=== PATIENT | female | born 1940 | race African-American/Black ===

== ENCOUNTER 2017-06-12 15:43 | Emergency (ER) | payer MEDICARE ==
[2017-06-12] MEDS ORDERED: SODIUM CHLORIDE 0.9% 500 ML IV STA (16:17)
--- NOTE | 2017-06-12 16:22 | ED ---
General Adult HPI - General Chief complaint: Weakness Stated complaint: weakness Time Seen by Provider: 06/12/17 16:08 Source: patient, EMS, RN notes reviewed Mode of arrival: EMS Limitations: physical limitation - History of Present Illness Initial comments: 76-year-old female presents for evaluation of his confusion, slurred speech. Patient was also noted to have several falls over the past 24-48 hours. History is obtained primarily from EMS. Patient is able answer questions but is not a good historian. According EMS patient is fallen 8 times in the last day or 2. She does have bilateral lower extremity weakness. Patient was noted by family members to be confused with slurred speech. The exact onset of time of this symptom is unknown, however according to EMS this has been over the past 2 days as well. Patient is alert and oriented 2, denies headache, denies blurred vision, denies chest pain or shortness of breath, denies abdominal pain. Complains of weakness in both legs. - Related Data Home Medications Medication Instructions Recorded Confirmed Ferrous Sulfate [Feosol] 325 mg PO DAILY 01/24/16 06/12/17 Insulin Glargine [Lantus] 60 units SQ HS 01/24/16 06/12/17 Insulin NPL/Insulin Lispro 5 units SQ BID 01/24/16 06/12/17 [humaLOG MIX 75-25 VIAL] Warfarin [Coumadin] 10 mg PO DAILY 01/24/16 06/12/17 amLODIPine [Norvasc] 10 mg PO DAILY 01/24/16 06/12/17 cloNIDine HCL [Catapres] 0.1 mg PO HS 01/24/16 06/12/17 metFORMIN HCL [Glucophage] 1,000 mg PO BID 01/24/16 06/12/17 Furosemide [Lasix] 20 - 40 mg PO DAILY PRN 03/31/16 06/12/17 Benzonatate [Tessalon Perles] 100 mg PO AC-SUPPER PRN 06/12/17 06/12/17 Previous Rx's Medication Instructions Recorded Aspirin EC [Ecotrin Low Dose] 81 mg PO DAILY #30 tablet. 01/25/16 Allergies Allergy/AdvReac Type Severity Reaction Status Date / Time No Known Allergies Allergy Verified 06/12/17 16:44 Review of Systems ROS Statement: Those systems with pertinent positive or pertinent negative responses have been documented in the HPI. ROS Other: All systems not noted in ROS Statement are negative. Past Medical History Past Medical History: Cancer, COPD, CVA/TIA, Dementia, Diabetes Mellitus, Hyperlipidemia, Hypertension, Memory Impairment, Osteoarthritis (OA) Additional Past Medical History / Comment(s): POOR HISTORIAN, PAST MEDICAL HX WITH PT AND FAMILY. Colon CA, CONSTIPATION AT TIMES, CVA 1995,TIA 2006,GLAUCOMA , LT FOOT FX, PAST FALLS.( PER OLD CHART IS WAS STATED THAT PT HAD STOMACH CANCER REMOVED,GLUACOMA,ARRYTHMIA BUT PT/FAMILY COULD'NT RECALL IT). cva with right deficit History of Any Multi-Drug Resistant Organisms: None Reported Past Surgical History: Bowel Resection, Hysterectomy Additional Past Surgical History / Comment(s): COLONOSCOPY,RT CATARACT REMOVED, Past Anesthesia/Blood Transfusion Reactions: No Reported Reaction Past Psychological History: No Psychological Hx Reported Smoking Status: Former smoker Past Alcohol Use History: None Reported Past Drug Use History: None Reported - Past Family History Mother Family Medical History: Cancer Additional Family Medical History / Comment(s): UNK TYPE Father History Unknown: Yes General Exam Limitations: physical limitation General appearance: alert, in no apparent distress Head exam: Present: atraumatic Eye exam: Present: normal appearance ENT exam: Present: mucous membranes dry Neck exam: Present: normal inspection, full ROM. Absent: tenderness Respiratory exam: Present: normal lung sounds bilaterally. Absent: respiratory distress Cardiovascular Exam: Present: tachycardia, irregular rhythm GI/Abdominal exam: Present: soft. Absent: distended, tenderness Extremities exam: Present: normal inspection, normal capillary refill. Absent: pedal edema Neurological exam: Present: alert, other (Upper extremities are symmetric, strength 5 out of 5, bilateral lower extremities are weak, patient is unable to lift these off the bed.) Psychiatric exam: Present: normal affect, normal mood Skin exam: Present: warm, dry. Absent: cyanosis, diaphoretic Course Vital Signs 06/12/17 06/12/17 06/12/17 15:50 16:05 16:20 Temperature 98.7 F 98.6 F 98.7 F Pulse Rate 114 H 108 H 102 H Respiratory 20 20 18 Rate Blood Pressure 200/108 194/92 178/88 O2 Sat by Pulse 94 L 94 L 94 L Oximetry 06/12/17 06/12/17 06/12/17 16:35 16:50 17:37 Temperature 98.2 F 99.3 F 100.5 F H Pulse Rate 98 98 96 Respiratory 18 18 18 Rate Blood Pressure 218/104 156/104 173/105 O2 Sat by Pulse 98 96 96 Oximetry 06/12/17 17:42 Temperature Pulse Rate 92 Respiratory 16 Rate Blood Pressure 155/89 O2 Sat by Pulse 95 Oximetry - Reevaluation(s) Reevaluation #1: 06/12/17 16:53 Patient initially hypoxic, although she does wear 3 L home O2 EKG Findings - EKG Comments: EKG Findings:: EKG shows sinus tachycardia with PACs, ventricular rate of 102, [place] interval 192, QRS duration 94, QTC 456, no ST segment elevation. Repeat EKG shows a 2 fibrillation, ventricular 84, QRS duration 84, QTC 451, no ST segment elevation or depression, there does appear to. Atrial activity with U waves, this may represent sinus rhythm with PACs Medical Decision Making - Medical Decision Making 76-year-old female presenting with multiple falls, urinary frequency and urgency with incontinence and confusion. Laboratory studies include a CBC, CMP car to enzymes are remarkable for mild elevation in serum troponin at 0.07. EKG is nonischemic. Patient is given an aspirin. She does deny chest pain. This level should be trended. Head CT is obtained shows enlarged ventricles consistent with normal pressure hydrocephalus. No acute cranial hemorrhage. This does support the patient's chief complaint include features. Discussed this with neurology and patient will be best served by transfer to facility with neurosurgery. Patient does have signs UTI, urine culture is pending, patient is given 1 dose of IV antibiotics in the emergency department Patient is initially hypertensive, blood pressure improves with labetalol. Patient and her family are agreeable to transfer. Diagnosis: Normal pressure hydrocephalus, elevated troponin, UTI - Lab Data Result diagrams: 06/12/17 16:00 06/12/17 16:00 Lab Results 06/12/17 06/12/17 06/12/17 Range/Units 16:00 16:00 16:00 WBC 8.6 (3.8-10.6) k/uL RBC 4.84 (3.80-5.40) m/uL Hgb 14.8 (11.4-16.0) gm/dL Hct 46.2 H (34.0-46.0) % MCV 95.5 (80.0-100.0) fL MCH 30.6 (25.0-35.0) pg MCHC 32.0 (31.0-37.0) g/dL RDW 13.7 (11.5-15.5) % Plt Count 191 (150-450) k/uL Neutrophils % 81 % Lymphocytes % 11 % Monocytes % 6 % Eosinophils % 1 % Basophils % 0 % Neutrophils # 7.0 (1.3-7.7) k/uL Lymphocytes # 1.0 (1.0-4.8) k/uL Monocytes # 0.5 (0-1.0) k/uL Eosinophils # 0.1 (0-0.7) k/uL Basophils # 0.0 (0-0.2) k/uL PT (9.0-12.0) sec INR (<1.2) APTT (22.0-30.0) sec VBG pH (7.31-7.41) VBG pCO2 (37-51) mmHg VBG HCO3 (24-28) mmol/L Sodium 141 (137-145) mmol/L Potassium 4.0 (3.5-5.1) mmol/L Chloride 107 (98-107) mmol/L Carbon Dioxide 23 (22-30) mmol/L Anion Gap 11 mmol/L BUN 15 (7-17) mg/dL Creatinine 0.85 (0.52-1.04) mg/dL Est GFR (MDRD) Af Amer >60 (>60 ml/min/1.73 sqM) Est GFR (MDRD) Non-Af >60 (>60 ml/min/1.73 sqM) Glucose 135 H (74-99) mg/dL Plasma Lactic Acid [place] (0.7-2.0) mmol/L Calcium 9.4 (8.4-10.2) mg/dL Magnesium 1.6 (1.6-2.3) mg/dL Total Bilirubin 1.1 (0.2-1.3) mg/dL AST 24 (14-36) U/L ALT 25 (9-52) U/L Alkaline Phosphatase 67 (38-126) U/L Total Creatine Kinase 132 (30-135) U/L CK-MB (CK-2) 1.5 (0.0-2.4) ng/mL CK-MB (CK-2) Rel Index 1.1 Troponin I 0.070 H* (0.000-0.034) ng/mL NT-Pro-B Natriuret Pep pg/mL Total Protein 6.8 (6.3-8.2) g/dL Albumin 3.7 (3.5-5.0) g/dL TSH 1.070 (0.465-4.680) mIU/L Urine Color Urine Appearance (Clear) Urine pH (5.0-8.0) Ur Specific [place] (1.001-1.035) Urine Protein (Negative) Urine Glucose (UA) (Negative) Urine Ketones (Negative) Urine Blood (Negative) Urine Nitrite (Negative) Urine Bilirubin (Negative) Urine Urobilinogen (<2.0) mg/dL Ur Leukocyte Esterase (Negative) Urine RBC (0-5) /hpf Urine WBC (0-5) /hpf Ur Squamous Epith Cells (0-4) /hpf Urine Bacteria (None) /hpf 06/12/17 06/12/17 06/12/17 Range/Units 16:00 16:00 17:10 WBC (3.8-10.6) k/uL RBC (3.80-5.40) m/uL Hgb (11.4-16.0) gm/dL Hct (34.0-46.0) % MCV (80.0-100.0) fL MCH (25.0-35.0) pg MCHC (31.0-37.0) g/dL RDW (11.5-15.5) % Plt Count (150-450) k/uL Neutrophils % % Lymphocytes % % Monocytes % % Eosinophils % % Basophils % % Neutrophils # (1.3-7.7) k/uL Lymphocytes # (1.0-4.8) k/uL Monocytes # (0-1.0) k/uL Eosinophils # (0-0.7) k/uL Basophils # (0-0.2) k/uL PT 10.9 (9.0-12.0) sec INR 1.1 (<1.2) APTT 22.1 (22.0-30.0) sec VBG pH (7.31-7.41) VBG pCO2 (37-51) mmHg VBG HCO3 (24-28) mmol/L Sodium (137-145) mmol/L Potassium (3.5-5.1) mmol/L Chloride (98-107) mmol/L Carbon Dioxide (22-30) mmol/L Anion Gap mmol/L BUN (7-17) mg/dL Creatinine (0.52-1.04) mg/dL Est GFR (MDRD) Af Amer (>60 ml/min/1.73 sqM) Est GFR (MDRD) Non-Af (>60 ml/min/1.73 sqM) Glucose (74-99) mg/dL Plasma Lactic Acid [place] (0.7-2.0) mmol/L Calcium (8.4-10.2) mg/dL Magnesium (1.6-2.3) mg/dL Total Bilirubin (0.2-1.3) mg/dL AST (14-36) U/L ALT (9-52) U/L Alkaline Phosphatase (38-126) U/L Total Creatine Kinase (30-135) U/L CK-MB (CK-2) (0.0-2.4) ng/mL CK-MB (CK-2) Rel Index Troponin I (0.000-0.034) ng/mL NT-Pro-B Natriuret Pep 138 pg/mL Total Protein (6.3-8.2) g/dL Albumin (3.5-5.0) g/dL TSH (0.465-4.680) mIU/L Urine Color Yellow Urine Appearance Cloudy H (Clear) Urine pH 5.5 (5.0-8.0) Ur Specific [place] 1.011 (1.001-1.035) Urine Protein Trace H (Negative) Urine Glucose (UA) Negative (Negative) Urine Ketones 1+ H (Negative) Urine Blood Trace H (Negative) Urine Nitrite Negative (Negative) Urine Bilirubin Negative (Negative) Urine Urobilinogen <2.0 (<2.0) mg/dL Ur Leukocyte Esterase Large H (Negative) Urine RBC 1 (0-5) /hpf Urine WBC 43 H (0-5) /hpf Ur Squamous Epith Cells 1 (0-4) /hpf Urine Bacteria Moderate H (None) /hpf 06/12/17 06/12/17 Range/Units 17:15 17:15 WBC (3.8-10.6) k/uL RBC (3.80-5.40) m/uL Hgb (11.4-16.0) gm/dL Hct (34.0-46.0) % MCV (80.0-100.0) fL MCH (25.0-35.0) pg MCHC (31.0-37.0) g/dL RDW (11.5-15.5) % Plt Count (150-450) k/uL Neutrophils % % Lymphocytes % % Monocytes % % Eosinophils % % Basophils % % Neutrophils # (1.3-7.7) k/uL Lymphocytes # (1.0-4.8) k/uL Monocytes # (0-1.0) k/uL Eosinophils # (0-0.7) k/uL Basophils # (0-0.2) k/uL PT (9.0-12.0) sec INR (<1.2) APTT (22.0-30.0) sec VBG pH 7.42 H (7.31-7.41) VBG pCO2 40 (37-51) mmHg VBG HCO3 26 (24-28) mmol/L Sodium (137-145) mmol/L Potassium (3.5-5.1) mmol/L Chloride (98-107) mmol/L Carbon Dioxide (22-30) mmol/L Anion Gap mmol/L BUN (7-17) mg/dL Creatinine (0.52-1.04) mg/dL Est GFR (MDRD) Af Amer (>60 ml/min/1.73 sqM) Est GFR (MDRD) Non-Af (>60 ml/min/1.73 sqM) Glucose (74-99) mg/dL Plasma Lactic Acid [place] 1.3 (0.7-2.0) mmol/L Calcium (8.4-10.2) mg/dL Magnesium (1.6-2.3) mg/dL Total Bilirubin (0.2-1.3) mg/dL AST (14-36) U/L ALT (9-52) U/L Alkaline Phosphatase (38-126) U/L Total Creatine Kinase (30-135) U/L CK-MB (CK-2) (0.0-2.4) ng/mL CK-MB (CK-2) Rel Index Troponin I (0.000-0.034) ng/mL NT-Pro-B Natriuret Pep pg/mL Total Protein (6.3-8.2) g/dL Albumin (3.5-5.0) g/dL TSH (0.465-4.680) mIU/L Urine Color Urine Appearance (Clear) Urine pH (5.0-8.0) Ur Specific [place] (1.001-1.035) Urine Protein (Negative) Urine Glucose (UA) (Negative) Urine Ketones (Negative) Urine Blood (Negative) Urine Nitrite (Negative) Urine Bilirubin (Negative) Urine Urobilinogen (<2.0) mg/dL Ur Leukocyte Esterase (Negative) Urine RBC (0-5) /hpf Urine WBC (0-5) /hpf Ur Squamous Epith Cells (0-4) /hpf Urine Bacteria (None) /hpf Disposition Clinical Impression: Normal pressure hydrocephalus, Troponin level elevated, UTI (urinary tract infection) Disposition: OTHER INSTITUTION NOT DEFINED Condition: Stable Referrals: Anh Ca MD [Primary Care Provider] - 1-2 days - Out of Hospital Transfer - Req. Specs Out of Hospital Transfer - Requested Specifics: Other Non-Acute ([facility] , excepting physician Dr. Reilly)
[2017-06-12 16:35] LABS: Basophils % (A) 0 %; CH 30.5; CHCM 32.1; Eosinophils # (A) 0.1 k/uL (0-0.7); Eosinophils % (A) 1 %; HCT 46.2 % (34.0-46.0); HDW 2.26; HGB 14.8 gm/dL (11.4-16.0); Luc # (Auto) 0.07; Luc % (Auto) 1; Lymphocytes % (A) 11 %; MCH 30.6 pg (25.0-35.0); MCV 95.5 fL (80.0-100.0); Mean Platelet Volume 8.5; Monocytes # (A) 0.5 k/uL (0-1.0); Monocytes % (A) 6 %; Neutrophils % (A) 81 %; RBC 4.84 m/uL (3.80-5.40); RDW 13.7 % (11.5-15.5); WBC 8.6 k/uL (3.8-10.6); WBC (Perox) 8.62
[2017-06-12 16:42] LABS: ALT 25 U/L (9-52); AST 24 U/L (14-36); Alkaline Phosphatase 67 U/L (38-126); Anion Gap 11 mmol/L; Blood Urea Nitrogen 15 mg/dL (7-17); Calcium 9.4 mg/dL (8.4-10.2); Carbon Dioxide 23 mmol/L (22-30); Chloride 107 mmol/L (98-107); Glucose 135 mg/dL (74-99); Magnesium 1.6 mg/dL (1.6-2.3); Non-African American GFR(MDRD) >60 (>60 ml/min/1.73 sqM); Sodium 141 mmol/L (137-145); Total Bilirubin 1.1 mg/dL (0.2-1.3); Total Protein 6.8 g/dL (6.3-8.2)
[2017-06-12] MEDS ORDERED: LABETALOL 5 MG/ML VIAL MDV IVP STA (16:53)
--- NOTE | 2017-06-12 17:02 | XR ---
EXAMINATION TYPE: XR chest 2V DATE OF EXAM: 06/12/2017 COMPARISON: 01/24/2016 TECHNIQUE: PA and lateral views submitted. HISTORY: Weakness FINDINGS: There is nodular prominence the right hilum. Atherosclerotic change aorta. No evidence of interstitia l edema or pneumothorax. Degenerative change of the spine. Ectasia of the aorta. Arthropathy of the s houlders. IMPRESSION: 1. Ectasia of the aorta with marked prominence the right hilum. CT of the chest is recommended to ass ess for mass, adenopathy or possibly aneurysm.
[2017-06-12 17:07] LABS: Creatine Kinase MB 1.5 ng/mL (0.0-2.4)
[2017-06-12 17:08] LABS: INR 1.1 (<1.2); Partial Thromboplastin Time 22.1 sec (22.0-30.0); Prothrombin Time 10.9 sec (9.0-12.0)
[2017-06-12 17:14] LABS: Troponin I 0.07 ng/mL (0.000-0.034)
[2017-06-12 17:31] LABS: VBG PH 7.42 (7.31-7.41)
--- NOTE | 2017-06-12 17:38 | CT ---
EXAMINATION TYPE: CT brain wo con DATE OF EXAM: 06/12/2017 COMPARISON: NONE HISTORY: Weakness. CT DLP: 960.3 mGycm. Automated exposure control for dose reduction was used. FINDINGS: There is no acute intracranial hemorrhage, mass, definite new attenuation defect, or mass e ffect. The ventricles are relatively more prominent than the sulci and this can correlate with a clin ical diagnosis of normal pressure hydrocephalus. There is no skull fracture. The globes are intact and the visualized paranasal sinuses, mastoid sinus air cells, and middle ear cavities are clear. IMPRESSION: 1. NO ACUTE PROCESS. 2. Finding which could potentially correlate with a clinical diagnosis of normal pressure hydrocephal us.
[2017-06-12] MEDS ORDERED: ASPIRIN 325 MG TAB PO STA (17:45)
[2017-06-12 18:12] LABS: Appearance,Urine Cloudy (Clear); Bacteria,Urine Moderate /hpf; Bilirubin,Urine Negative (Negative); Glucose,Urine (UA) Negative (Negative); Ketones,Urine 1+ (Negative); Leukocyte Esterase,Urine Large (Negative); Nitrite,Urine Negative (Negative); PH, Urine 5.5 (5.0-8.0); Particle Count 69179; Protein,Urine Trace (Negative); RBC,Urine 1 /hpf (0-5); Specific Gravity,Urine 1.011 (1.001-1.035); Squamous Epithelial Cell,Urine 1 /hpf (0-4); UA Billing (MACRO vs. MICRO) MICRO; Urobilinogen,Urine <2.0 mg/dL (<2.0); WBC,Urine 43 /hpf (0-5)
[2017-06-12 18:34] VITALS: RESP 18
[2017-06-12 19:24] VITALS: BP 181/100; PULSE 82; TEMP 99.8
== END 2017-06-12 19:28 | disposition other institution (70) ==
LOC: EC 15:43
DX: G91.9 Hydrocephalus, unspecified (principal); N39.0 Urinary tract infection, site not specified; R79.89 Other specified abnormal findings of blood chemistry; R53.1 Weakness; R41.0 Disorientation, unspecified; R47.81 Slurred speech; J44.9 Chronic obstructive pulmonary disease, unspecified; E11.9 Type 2 diabetes mellitus without complications; E78.5 Hyperlipidemia, unspecified; I10 Essential (primary) hypertension; M19.90 Unspecified osteoarthritis, unspecified site; Z85.028 Personal history of other malignant neoplasm of stomach; Z86.73 Personal history of transient ischemic attack (TIA), and cerebral infarction without residual deficits; Z87.891 Personal history of nicotine dependence; Z79.4 Long term (current) use of insulin; Z79.01 Long term (current) use of anticoagulants; Z79.899 Other long term (current) drug therapy
CPT/HCPCS: 36415; 93005; 83880; 80053; 82550; 82553; 82803; 83605; 83735; 84443; 84484; 85025; 85610; 85730; 81001; 87040; 87086; 71020; 70450; 99285; 96365; 96375; 96361; J0696; 87077; 87186

== ENCOUNTER 2017-07-22 10:52 | Inpatient (IN) | payer MEDICARE ==
[2017-07-22] MEDS ORDERED: SODIUM CHLORIDE 0.9% 500 ML IV ONE (10:55)
[2017-07-22 11:04] LABS: Glucose,Whole Blood 140 mg/dL (75-99)
--- NOTE | 2017-07-22 11:06 | ED ---
General Adult HPI - General Stated complaint: CVA Time Seen by Provider: 07/22/17 10:55 Source: RN notes reviewed - History of Present Illness Initial comments: This is a 76-year-old female presents emergency Department with a past medical history significant for strokes and diabetes. EMS reported that the patient was normal at about 8:00 today and states that she was altered mentally currently. All of her residual effects the right-sided facial droop slurred speech and right-sided weakness all little bit worse but the states to EMS that her left side is also weaker than normal. Patient currently has no complaints she is alert and oriented 2 which is abnormal according to the paramedics she is normally alert and oriented 3. There has been no history of any recent injury or trauma there is no history of any fever chills cough or difficulty breathing patient denies any chest pain or palpitations. Patient denies abdominal pain patient denies any recent nausea vomiting or diarrhea. - Related Data Home Medications Medication Instructions Recorded Confirmed Ferrous Sulfate [Feosol] 325 mg PO DAILY 01/24/16 07/22/17 Insulin Glargine [Lantus] 60 units SQ HS 01/24/16 07/22/17 Insulin NPL/Insulin Lispro 5 units SQ BID 01/24/16 07/22/17 [humaLOG MIX 75-25 VIAL] Warfarin [Coumadin] 10 mg PO Q48H 01/24/16 07/22/17 amLODIPine [Norvasc] 10 mg PO DAILY 01/24/16 07/22/17 cloNIDine HCL [Catapres] 0.1 mg PO HS 01/24/16 07/22/17 metFORMIN HCL [Glucophage] 1,000 mg PO BID 01/24/16 07/22/17 Furosemide [Lasix] 20 - 40 mg PO DAILY PRN 03/31/16 07/22/17 Benzonatate [Tessalon Perles] 100 mg PO AC-SUPPER PRN 06/12/17 07/22/17 Cholecalciferol [Vitamin D3] 2,000 unit PO DAILY 07/22/17 07/22/17 Docusate [Colace] 100 mg PO DAILY 07/22/17 07/22/17 Folic Acid 1 mg PO DAILY 07/22/17 07/22/17 Hydrochlorothiazide [Hydrodiuril] 25 mg PO DAILY 07/22/17 07/22/17 Lisinopril [Zestril] 10 mg PO DAILY 07/22/17 07/22/17 Metoprolol Tartrate [Lopressor] 100 mg PO BID 07/22/17 07/22/17 Potassium Chloride [K-Tab ER] 10 meq PO DAILY 07/22/17 07/22/17 Pravastatin Sodium [Pravachol] 10 mg PO DAILY 07/22/17 07/22/17 amLODIPine [Norvasc] 10 mg PO DAILY 07/22/17 07/22/17 Previous Rx's Medication Instructions Recorded Aspirin EC [Ecotrin Low Dose] 81 mg PO DAILY #30 tablet. 01/25/16 Allergies Allergy/AdvReac Type Severity Reaction Status Date / Time No Known Allergies Allergy Verified 07/22/17 11:29 Review of Systems ROS Statement: Those systems with pertinent positive or pertinent negative responses have been documented in the HPI. ROS Other: All systems not noted in ROS Statement are negative. Past Medical History Past Medical History: Cancer, COPD, CVA/TIA, Dementia, Diabetes Mellitus, Hyperlipidemia, Hypertension, Memory Impairment, Osteoarthritis (OA) Additional Past Medical History / Comment(s): POOR HISTORIAN, PAST MEDICAL HX WITH PT AND FAMILY. Colon CA, CONSTIPATION AT TIMES, CVA 1995,TIA 2006,GLAUCOMA , LT FOOT FX, PAST FALLS.( PER OLD CHART IS WAS STATED THAT PT HAD STOMACH CANCER REMOVED,GLUACOMA,ARRYTHMIA BUT PT/FAMILY COULD'NT RECALL IT). cva with right deficit History of Any Multi-Drug Resistant Organisms: None Reported Past Surgical History: Bowel Resection, Hysterectomy Additional Past Surgical History / Comment(s): COLONOSCOPY,RT CATARACT REMOVED, Past Anesthesia/Blood Transfusion Reactions: No Reported Reaction Past Psychological History: No Psychological Hx Reported Smoking Status: Former smoker Past Alcohol Use History: None Reported Past Drug Use History: None Reported - Past Family History Mother Family Medical History: Cancer Additional Family Medical History / Comment(s): UNK TYPE Father History Unknown: Yes General Exam - General Exam Comments Initial Comments: GENERAL: Patient is well-developed and well-nourished. Patient is nontoxic and well- hydrated and is in mild distress. ENT: Neck is soft and supple. No significant lymphadenopathy is noted. Oropharynx is clear. Moist mucous membranes. Neck has full range of motion without eliciting any pain. EYES: The sclera were anicteric and conjunctiva were pink and moist. Extraocular movements were intact and pupils were equal round and reactive to light. Eyelids were unremarkable. PULMONARY: Unlabored respirations. Good breath sounds bilaterally. No audible rales rhonchi or wheezing was noted. CARDIOVASCULAR: There is a regular rate and rhythm without any murmurs gallops or rubs. ABDOMEN: Soft and nontender with normal bowel sounds. No palpable organomegaly was noted. There is no palpable pulsatile mass. SKIN: Skin is clear with no lesions or rashes and otherwise unremarkable. NEUROLOGIC: Patient is alert and oriented x3. Cranial nerves II through XII are grossly intact. Motor and sensory are also intact. Normal speech, volume and content. Symmetrical smile. MUSCULOSKELETAL: Normal extremities with adequate strength and full range of motion. No lower extremity swelling or edema. No calf tenderness. LYMPHATICS: No significant lymphadenopathy is noted PSYCHIATRIC: Normal psychiatric evaluation. Normal interpersonal interactions appears functionally intact in deals appropriately with others. Course Vital Signs 07/22/17 07/22/17 07/22/17 10:52 11:00 11:15 Temperature 98.5 F Pulse Rate 63 75 79 Respiratory 18 18 20 Rate Blood Pressure 172/79 184/77 160/70 O2 Sat by Pulse 96 98 98 Oximetry 07/22/17 07/22/17 07/22/17 11:30 11:45 12:00 Temperature Pulse Rate 73 76 66 Respiratory 18 18 18 Rate Blood Pressure 166/72 162/72 154/74 O2 Sat by Pulse 99 97 96 Oximetry Medical Decision Making - Medical Decision Making EKG shows normal sinus rhythm at 69 bpm RI interval is 164 QRS is 90 QT interval 436 QTC is 467. Patient's EKG shows no significant ST segment elevation or depression. Family came to the room later and stated the patient started showing symptoms of altered mental status and increased generalized weakness last evening. - Lab Data Result diagrams: 07/22/17 10:55 07/22/17 10:55 Lab Results 07/22/17 07/22/17 07/22/17 Range/Units 10:55 10:55 10:55 WBC 5.5 (3.8-10.6) k/uL RBC 4.63 (3.80-5.40) m/uL Hgb 14.3 (11.4-16.0) gm/dL Hct 44.4 (34.0-46.0) % MCV 95.8 (80.0-100.0) fL MCH 30.9 (25.0-35.0) pg MCHC 32.2 (31.0-37.0) g/dL RDW 12.8 (11.5-15.5) % Plt Count 215 (150-450) k/uL Neutrophils % 64 % Lymphocytes % 24 % Monocytes % 5 % Eosinophils % 4 % Basophils % 1 % Neutrophils # 3.5 (1.3-7.7) k/uL Lymphocytes # 1.3 (1.0-4.8) k/uL Monocytes # 0.3 (0-1.0) k/uL Eosinophils # 0.2 (0-0.7) k/uL Basophils # 0.0 (0-0.2) k/uL PT (9.0-12.0) sec INR (<1.2) APTT (22.0-30.0) sec Sodium 143 (137-145) mmol/L Potassium 3.7 (3.5-5.1) mmol/L Chloride 103 (98-107) mmol/L Carbon Dioxide 30 (22-30) mmol/L Anion Gap 10 mmol/L BUN 9 (7-17) mg/dL Creatinine 0.79 (0.52-1.04) mg/dL Est GFR (MDRD) Af Amer >60 (>60 ml/min/1.73 sqM) Est GFR (MDRD) Non-Af >60 (>60 ml/min/1.73 sqM) Glucose 129 H (74-99) mg/dL POC Glucose (mg/dL) (75-99) mg/dL POC Glu Exercise Equipment Specialist ID Calcium 10.2 (8.4-10.2) mg/dL Total Bilirubin 0.4 (0.2-1.3) mg/dL AST 13 L (14-36) U/L ALT 18 (9-52) U/L Alkaline Phosphatase 83 (38-126) U/L Total Creatine Kinase 53 (30-135) U/L CK-MB (CK-2) 0.7 (0.0-2.4) ng/mL CK-MB (CK-2) Rel Index 1.3 Troponin I 0.049 H* (0.000-0.034) ng/mL Total Protein 6.9 (6.3-8.2) g/dL Albumin 4.0 (3.5-5.0) g/dL Urine Color Urine Appearance (Clear) Urine pH (5.0-8.0) Ur Specific [place] (1.001-1.035) Urine Protein (Negative) Urine Glucose (UA) (Negative) Urine Ketones (Negative) Urine Blood (Negative) Urine Nitrite (Negative) Urine Bilirubin (Negative) Urine Urobilinogen (<2.0) mg/dL Ur Leukocyte Esterase (Negative) Urine Opiates Screen (NotDetected) Ur Oxycodone Screen (NotDetected) Urine Methadone Screen (NotDetected) Ur Propoxyphene Screen (NotDetected) Ur Barbiturates Screen (NotDetected) U Tricyclic Antidepress (NotDetected) Ur Phencyclidine Scrn (NotDetected) Ur Amphetamines Screen (NotDetected) U Methamphetamines Scrn (NotDetected) U Benzodiazepines Scrn (NotDetected) Urine Cocaine Screen (NotDetected) U Marijuana (THC) Screen (NotDetected) 07/22/17 07/22/17 07/22/17 Range/Units 10:55 10:56 11:25 WBC (3.8-10.6) k/uL RBC (3.80-5.40) m/uL Hgb (11.4-16.0) gm/dL Hct (34.0-46.0) % MCV (80.0-100.0) fL MCH (25.0-35.0) pg MCHC (31.0-37.0) g/dL RDW (11.5-15.5) % Plt Count (150-450) k/uL Neutrophils % % Lymphocytes % % Monocytes % % Eosinophils % % Basophils % % Neutrophils # (1.3-7.7) k/uL Lymphocytes # (1.0-4.8) k/uL Monocytes # (0-1.0) k/uL Eosinophils # (0-0.7) k/uL Basophils # (0-0.2) k/uL PT 10.5 (9.0-12.0) sec INR 1.0 (<1.2) APTT 22.9 (22.0-30.0) sec Sodium (137-145) mmol/L Potassium (3.5-5.1) mmol/L Chloride (98-107) mmol/L Carbon Dioxide (22-30) mmol/L Anion Gap mmol/L BUN (7-17) mg/dL Creatinine (0.52-1.04) mg/dL Est GFR (MDRD) Af Amer (>60 ml/min/1.73 sqM) Est GFR (MDRD) Non-Af (>60 ml/min/1.73 sqM) Glucose (74-99) mg/dL POC Glucose (mg/dL) 140 H (75-99) mg/dL POC Glu Exercise Equipment Specialist ID Jillian Rios Calcium (8.4-10.2) mg/dL Total Bilirubin (0.2-1.3) mg/dL AST (14-36) U/L ALT (9-52) U/L Alkaline Phosphatase (38-126) U/L Total Creatine Kinase (30-135) U/L CK-MB (CK-2) (0.0-2.4) ng/mL CK-MB (CK-2) Rel Index Troponin I (0.000-0.034) ng/mL Total Protein (6.3-8.2) g/dL Albumin (3.5-5.0) g/dL Urine Color Light Yellow Urine Appearance Clear (Clear) Urine pH 5.0 (5.0-8.0) Ur Specific [place] 1.007 (1.001-1.035) Urine Protein Negative (Negative) Urine Glucose (UA) Negative (Negative) Urine Ketones Negative (Negative) Urine Blood Negative (Negative) Urine Nitrite Negative (Negative) Urine Bilirubin Negative (Negative) Urine Urobilinogen <2.0 (<2.0) mg/dL Ur Leukocyte Esterase Negative (Negative) Urine Opiates Screen Not Detected (NotDetected) Ur Oxycodone Screen Not Detected (NotDetected) Urine Methadone Screen Not Detected (NotDetected) Ur Propoxyphene Screen Not Detected (NotDetected) Ur Barbiturates Screen Not Detected (NotDetected) U Tricyclic Antidepress Not Detected (NotDetected) Ur Phencyclidine Scrn Not Detected (NotDetected) Ur Amphetamines Screen Not Detected (NotDetected) U Methamphetamines Scrn Not Detected (NotDetected) U Benzodiazepines Scrn Not Detected (NotDetected) Urine Cocaine Screen Not Detected (NotDetected) U Marijuana (THC) Screen Not Detected (NotDetected) Disposition Clinical Impression: Altered mental status Disposition: ADMITTED IP TO THIS HOSP Referrals: Anh Ca MD [Primary Care Provider] - 1-2 days Time of Disposition: 12:40
[2017-07-22 11:26] LABS: Basophils % (A) 1 %; CH 30.7; CHCM 32.2; Eosinophils # (A) 0.2 k/uL (0-0.7); Eosinophils % (A) 4 %; HCT 44.4 % (34.0-46.0); HGB 14.3 gm/dL (11.4-16.0); Luc # (Auto) 0.15; Luc % (Auto) 3; Lymphocytes # (A) 1.3 k/uL (1.0-4.8); Lymphocytes % (A) 24 %; MCH 30.9 pg (25.0-35.0); MCHC 32.2 g/dL (31.0-37.0); MCV 95.8 fL (80.0-100.0); Mean Platelet Volume 7.9; Monocytes # (A) 0.3 k/uL (0-1.0); Monocytes % (A) 5 %; Neutrophils # (A) 3.5 k/uL (1.3-7.7); Neutrophils % (A) 64 %; RBC 4.63 m/uL (3.80-5.40); RDW 12.8 % (11.5-15.5); WBC 5.5 k/uL (3.8-10.6); WBC (Perox) 5.16
--- NOTE | 2017-07-22 11:26 | CT ---
EXAMINATION TYPE: CT brain wo con DATE OF EXAM: 07/22/2017 HISTORY: Altered mental status CT DLP: 945.5 mGycm. Automated Exposure Control for Dose Reduction was Utilized. TECHNIQUE: CT scan of the head is performed without contrast. COMPARISON: CT brain June 12, 2017 and older studies. FINDINGS: There is no acute intracranial hemorrhage or midline shift identified. There is diffuse v entricular and sulcal prominence consistent with diffuse age-related cerebral atrophy. Ventricular si ze is stable. There is low-attenuation in the periventricular white matter consistent with chronic sm all vessel ischemic change. The globes are intact and the visualized sinuses are clear. IMPRESSION: No acute intracranial hemorrhage or midline shift. There is moderate to severe diffuse age-related cerebral atrophy and chronic small vessel ischemic change redemonstrated without signific ant change from prior.
[2017-07-22 11:34] LABS: Partial Thromboplastin Time 22.9 sec (22.0-30.0); Prothrombin Time 10.5 sec (9.0-12.0)
[2017-07-22 11:36] LABS: ALT 18 U/L (9-52); AST 13 U/L (14-36); Alkaline Phosphatase 83 U/L (38-126); Anion Gap 10 mmol/L; Blood Urea Nitrogen 9 mg/dL (7-17); Calcium 10.2 mg/dL (8.4-10.2); Carbon Dioxide 30 mmol/L (22-30); Chloride 103 mmol/L (98-107); Glucose 129 mg/dL (74-99); Non-African American GFR(MDRD) >60 (>60 ml/min/1.73 sqM); Potassium 3.7 mmol/L (3.5-5.1); Sodium 143 mmol/L (137-145); Total Bilirubin 0.4 mg/dL (0.2-1.3); Total Protein 6.9 g/dL (6.3-8.2)
[2017-07-22 11:55] LABS: Appearance,Urine Clear (Clear); Bilirubin,Urine Negative (Negative); Glucose,Urine (UA) Negative (Negative); Ketones,Urine Negative (Negative); Leukocyte Esterase,Urine Negative (Negative); Nitrite,Urine Negative (Negative); Protein,Urine Negative (Negative); Specific Gravity,Urine 1.007 (1.001-1.035); UA Billing (MACRO vs. MICRO) CHEM; Urobilinogen,Urine <2.0 mg/dL (<2.0)
[2017-07-22 12:03] LABS: Creatine Kinase MB 0.7 ng/mL (0.0-2.4)
[2017-07-22 12:13] LABS: Troponin I 0.049 ng/mL (0.000-0.034)
[2017-07-22] MEDS ORDERED: SODIUM CHLORIDE 0.9% 1,000 ML IV ONE (12:40)
--- NOTE | 2017-07-22 12:40 | XR ---
EXAMINATION TYPE: XR chest 2V DATE OF EXAM: 07/22/2017 COMPARISON: 06/12/2017 TECHNIQUE: PA and lateral views submitted. HISTORY: Altered mental status FINDINGS: The lungs are clear and there is no pneumothorax, pleural effusion, or focal pneumonia. IMPRESSION: 1. No acute process. There is nodular prominence the right hilum. Atherosclerotic change aorta. No evidence of interstitia l edema or pneumothorax. Degenerative change of the spine. Ectasia of the aorta. Arthropathy of the s houlders. Chronic rib deformities noted suggest remote trauma. IMPRESSION: 1. Ectasia of the aorta with marked prominence the right hilum. CT of the chest is recommended to ass ess for mass, adenopathy or possibly aneurysm.
[2017-07-22 16:48] LABS: Glucose,Whole Blood 77 mg/dL (75-99)
[2017-07-22] MEDS: INSULIN LISPRO (humaLOG) 300 UNIT/3 ML VIAL SQ SCH ×2 (16:51→21:35)
[2017-07-22] MEDS: ENOXAPARIN 60 MG/0.6 ML SYRINGE SQ SCH (20:35)
[2017-07-22] MEDS: ASPIRIN 300 MG SUPP RECTAL SCH (20:42)
[2017-07-22 20:50] LABS: Glucose,Whole Blood 66 mg/dL (75-99)
[2017-07-22] MEDS ORDERED: DEXTROSE 10 % IN WATER 250 ML IV STA (20:56)
[2017-07-22 21:29] LABS: Glucose,Whole Blood 125 mg/dL (75-99)
--- NOTE | 2017-07-22 22:49 | CONS ---
CONSULTATION Date of consultation 07/22/2017. CHIEF COMPLAINT: Altered mental status and weakness. HISTORY OF PRESENT ILLNESS: The patient is a pleasant 76-year-old -Burmese female who is being evaluated by the neurology service per the request of Dr. Dominguez for the above-mentioned complaints. The patient has history of ischemic stroke with residual right hemiparesis and dysarthria. She was brought into [facility] Room for some confusion that her noticed. He also felt that she was having more weakness than usual. In the emergency room, a CT scan of the brain was done which showed generalized atrophy and small-vessel ischemic changes. In reviewing her home medications, she is on Coumadin at home, but her INR was normal. The patient did fail a swallow study at bedside and she is not receiving her Coumadin during this admission. She has been started on Lovenox by Dr. Dominguez. Her CBC, comprehensive metabolic profile, urine drug screen and urinalysis were normal. Her cardiac enzymes showed slightly elevated troponin I at 0.049. The patient was admitted for further workup and management and Speech Therapy has been consulted. At the time of my evaluation, the patient is lying in her bed and appears to be in no acute distress. She continues to have obvious right hemiparesis and a right facial droop and her speech continues to be dysarthric. PAST MEDICAL HISTORY: Ischemic stroke with residual right hemiparesis and dysarthria, chronic obstructive pulmonary disease, dementia, dyslipidemia, hypertension, arthritis, history of bowel resection, hysterectomy, cataract surgery. SOCIAL HISTORY: The patient is a former smoker. There is no history of any alcohol or drug use. FAMILY HISTORY: Positive for cancer. HOME MEDICATIONS: Reviewed in the chart. ALLERGIES: No known drug allergies. REVIEW OF SYSTEM: CONSTITUTIONAL: Positive for fatigue. EYES: Positive for chronic diminished vision. ENT: Negative. CARDIOVASCULAR: Negative. RESPIRATORY: Negative. NEUROLOGICAL: As mentioned above. GASTROINTESTINAL: As mentioned above. GENITOURINARY: Negative. ENDOCRINE: Negative. PSYCHIATRIC: Negative. MUSCULOSKELETAL: Positive for occasional joint pain. DERMATOLOGICAL: Negative. PHYSICAL EXAM: Vital signs show a temperature of 98.0, pulse 62, respirations 20, blood pressure 164/81. GENERAL APPEARANCE: The patient is a well-developed, elderly -Burmese female, who appears to be in no acute distress. HEENT: Normocephalic, atraumatic. Right facial weakness is seen. NECK: Supple with no masses felt. CARDIOVASCULAR: Regular rate and rhythm. ABDOMEN: Nontender nondistended. Extremities showed trace edema with no clubbing seen. NEUROLOGICAL: The patient is alert, aware and oriented x3. Speech is dysarthric. Language testing was normal. Strength is 4- out of 5 on the right and 5- out of 5 on the left. Sensory exam was normal to light touch in all 4 extremities. Cranial nerve testing showed right facial weakness. No seizure-like activity is seen. IMPRESSION: 1. Altered mental status, improved. 2. History of ischemic stroke. 3. Right hemiparesis secondary to stroke. 4. Dysarthria secondary to stroke. 5. Dysphagia. 6. History of dementia. RECOMMENDATION: The patient's altered mental status appears to have resolved, as she is oriented x3 at the time of my evaluation. She is having dysphagia, which is new to her. Her right hemiparesis and dysarthria is due to her old stroke. Speech Therapy has been consulted. I will start her on aspirin 300 mg rectally daily. If her dysphagia does not resolve, she will likely need a PEG tube. I will order a fasting lipid panel, carotid Doppler, EEG and serum homocystine level. The patient will need to be restarted on Coumadin, which is her home medication. It is unclear at this time why she is on anticoagulation. The patient denies any history of irregular heartbeats, but she is not a good historian. Continue the rest of your current workup and management. Continue neuro checks. I will continue to follow with you. Further recommendations to follow. Thank you for allowing me to participate in the care of your patient. If you have any questions, please feel free to contact me. MMODL / IJN: [id number] /
[2017-07-23 00:04] LABS: Glucose,Whole Blood 87 mg/dL (75-99)
[2017-07-23 02:04] LABS: Glucose,Whole Blood 85 mg/dL (75-99)
[2017-07-23] MEDS: INSULIN LISPRO (humaLOG) 300 UNIT/3 ML VIAL SQ SCH ×5 (06:08→21:10)
[2017-07-23 06:15] LABS: Glucose,Whole Blood 168 mg/dL (75-99)
[2017-07-23 07:11] LABS: Cholesterol 188 mg/dL (<200); HDL Cholesterol 64 mg/dL (40-60)
--- NOTE | 2017-07-23 08:02 | P.CRDCN ---
History of Present Illness Consult date: 07/23/17 Chief complaint: Change in mental status History of present illness: This is a 76-year-old female patient who was brought by her family to the emergency room because of change in mental status. The patient currently is confused and she is unable to tell me any details. Apparently she had a stroke in the past with a residual right sided weakness and slurred speech. The family noticed that the left sided weakness was getting worse and also her speech was getting worse and also there is some swallow problem. The patient was seen and evaluated by a neurologist yesterday who felt that the patient did not have any acute stroke but she is scheduled to have an EEG and carotid duplex study which is in process to be done. There is no indication of any chest pain or chest discomfort. There is no indication of any prior cardiac history at this point. The patient is receiving Coumadin for unknown reason. The EKG showed sinus rhythm without any ischemic changes. We get involved in the care of the patient because the first set of cardiac enzymes came in to be mildly abnormal and we don't have any more sets. She underwent an echocardiogram in 2014 and that revealed normal LV function. Past Medical History Past Medical History: Cancer, COPD, CVA/TIA, Dementia, Diabetes Mellitus, Hyperlipidemia, Hypertension, Memory Impairment, Osteoarthritis (OA) Additional Past Medical History / Comment(s): POOR HISTORIAN, PAST MEDICAL HX WITH PT AND FAMILY. Colon CA, CONSTIPATION AT TIMES, CVA 1995,TIA 2006,GLAUCOMA , LT FOOT FX, PAST FALLS.( PER OLD CHART IS WAS STATED THAT PT HAD STOMACH CANCER REMOVED,GLUACOMA,ARRYTHMIA BUT PT/FAMILY COULD'NT RECALL IT). cva with right deficit History of Any Multi-Drug Resistant Organisms: None Reported Past Surgical History: Bowel Resection, Hysterectomy Additional Past Surgical History / Comment(s): COLONOSCOPY,RT CATARACT REMOVED, Past Anesthesia/Blood Transfusion Reactions: No Reported Reaction Past Psychological History: No Psychological Hx Reported Smoking Status: Former smoker Past Alcohol Use History: None Reported Additional Past Alcohol Use History / Comment(s): STARTED SMOKING AT AGE 17, SMOKED LESS THAN 1 PPD, QUIT 2001. DENIES ANY ETOH USE SINCE 2001. Past Drug Use History: None Reported - Past Family History Mother Family Medical History: Cancer Additional Family Medical History / Comment(s): UNK TYPE Father History Unknown: Yes Medications and Allergies Home Medications Medication Instructions Recorded Confirmed Type Ferrous Sulfate [Feosol] 325 mg PO DAILY 01/24/16 07/22/17 History Insulin Glargine [Lantus] 60 units SQ HS 01/24/16 07/22/17 History Insulin NPL/Insulin Lispro 5 units SQ BID 01/24/16 07/22/17 History [humaLOG MIX 75-25 VIAL] Warfarin [Coumadin] 10 mg PO Q48H 01/24/16 07/22/17 History amLODIPine [Norvasc] 10 mg PO DAILY 01/24/16 07/22/17 History cloNIDine HCL [Catapres] 0.1 mg PO HS 01/24/16 07/22/17 History metFORMIN HCL [Glucophage] 1,000 mg PO BID 01/24/16 07/22/17 History Aspirin EC [Ecotrin Low Dose] 81 mg PO DAILY #30 tablet. 01/25/16 07/22/17 Rx Furosemide [Lasix] 20 - 40 mg PO DAILY PRN 03/31/16 07/22/17 History Benzonatate [Tessalon Perles] 100 mg PO AC-SUPPER PRN 06/12/17 07/22/17 History Cholecalciferol [Vitamin D3] 2,000 unit PO DAILY 07/22/17 07/22/17 History Docusate [Colace] 100 mg PO DAILY 07/22/17 07/22/17 History Folic Acid 1 mg PO DAILY 07/22/17 07/22/17 History Hydrochlorothiazide [Hydrodiuril] 25 mg PO DAILY 07/22/17 07/22/17 History Lisinopril [Zestril] 10 mg PO DAILY 07/22/17 07/22/17 History Metoprolol Tartrate [Lopressor] 100 mg PO BID 07/22/17 07/22/17 History Potassium Chloride [K-Tab ER] 10 meq PO DAILY 07/22/17 07/22/17 History Pravastatin Sodium [Pravachol] 10 mg PO DAILY 07/22/17 07/22/17 History amLODIPine [Norvasc] 10 mg PO DAILY 07/22/17 07/22/17 History Allergies Allergy/AdvReac Type Severity Reaction Status Date / Time No Known Allergies Allergy Verified 07/22/17 11:29 Physical Exam Vitals: Vital Signs Temp Pulse Pulse Resp BP BP Pulse Ox 07/23/17 04:00 97.1 F L 73 16 141/80 93 L 07/22/17 23:10 97.2 F L 72 16 144/89 96 07/22/17 19:57 96.9 F L 57 L 16 152/74 98 07/22/17 16:00 97.9 F 61 16 154/78 97 07/22/17 13:00 98.0 F 62 20 164/81 98 07/22/17 12:00 66 18 154/74 96 07/22/17 11:45 76 18 162/72 97 07/22/17 11:30 73 18 166/72 99 07/22/17 11:15 79 20 160/70 98 07/22/17 11:00 75 18 184/77 98 07/22/17 10:52 98.5 F 63 18 172/79 96 Intake and Output 07/22/17 07/23/17 07/23/17 22:59 06:59 14:59 Intake Total 750 600 Balance 750 600 Intake: IV 750 600 Dextrose 10 % in Water 150 250 ml @ 999 mls/hr IV ONCE STA Rx#:[id number] Sodium Chloride 0.9% 1, 600 600 000 ml @ 75 mls/hr IV . [id number] ONE Rx#:[id number] Other: Voiding Method Bedpan Bedpan Diaper Incontinent # Voids 2 3 Weight 61.5 kg - Constitutional General appearance: no acute distress - Respiratory Respiratory: bilateral: CTA - Cardiovascular Rhythm: regular Heart sounds: normal: S1, S2 Results 07/22/17 10:55 07/22/17 10:55 Cardiac Enzymes 07/22/17 07/22/17 Range/Units 10:55 10:55 AST 13 L (14-36) U/L CK-MB (CK-2) 0.7 (0.0-2.4) ng/mL Troponin I 0.049 H* (0.000-0.034) ng/mL Coagulation 07/22/17 Range/Units 10:55 PT 10.5 (9.0-12.0) sec APTT 22.9 (22.0-30.0) sec Lipids 07/23/17 Range/Units 05:49 Triglycerides 99 (<150) mg/dL Cholesterol 188 (<200) mg/dL HDL Cholesterol 64 H (40-60) mg/dL CBC 07/22/17 Range/Units 10:55 WBC 5.5 (3.8-10.6) k/uL RBC 4.63 (3.80-5.40) m/uL Hgb 14.3 (11.4-16.0) gm/dL Hct 44.4 (34.0-46.0) % Plt Count 215 (150-450) k/uL Comprehensive Metabolic Panel 07/22/17 Range/Units 10:55 Sodium 143 (137-145) mmol/L Potassium 3.7 (3.5-5.1) mmol/L Chloride 103 (98-107) mmol/L Carbon Dioxide 30 (22-30) mmol/L BUN 9 (7-17) mg/dL Creatinine 0.79 (0.52-1.04) mg/dL Glucose 129 H (74-99) mg/dL Calcium 10.2 (8.4-10.2) mg/dL AST 13 L (14-36) U/L ALT 18 (9-52) U/L Alkaline Phosphatase 83 (38-126) U/L Total Protein 6.9 (6.3-8.2) g/dL Albumin 4.0 (3.5-5.0) g/dL Current Medications Generic Name Dose Route Start Last Admin Trade Name Freq PRN Reason Stop Dose Admin Aspirin 300 mg 07/22/17 20:00 07/22/17 20:42 Aspirin RECTAL 300 mg DAILY CAITLYN Administration Enalaprilat 1.25 mg 07/22/17 14:52 Vasotec IVP Q6HR PRN Blood Pressure - High Enoxaparin Sodium 60 mg 07/22/17 21:00 07/22/17 20:35 Lovenox SQ 60 mg Q12HR CAITLYN Administration Insulin Human Lispro 0 unit 07/22/17 17:30 07/23/17 06:17 Humalog SQ 2 unit ACHS CAITLYN Administration Protocol Intake and Output 07/22/17 07/23/17 07/23/17 22:59 06:59 14:59 Intake Total 750 600 Balance 750 600 Intake: IV 750 600 Dextrose 10 % in Water 150 250 ml @ 999 mls/hr IV ONCE STA Rx#:[id number] Sodium Chloride 0.9% 1, 600 600 000 ml @ 75 mls/hr IV . [id number] ONE Rx#:[id number] Other: Voiding Method Bedpan Bedpan Diaper Incontinent # Voids 2 3 Weight 61.5 kg 07/22/17 10:55 07/22/17 10:55 Assessment and Plan Assessment: This is a 76-year-old -Nauruan female patient with history of stroke and right side weakness who was brought by her family to the emergency room with a change in mental status as well as worsening of the right-sided weakness. The computed tomography scan of the brain did not show any evidence of acute intracranial changes. The patient is confused. No indication of any chest pain or chest discomfort. The first set of cardiac enzymes came in to be unremarkable and the EKG did not show any acute changes. At this point I recommended a conservative medical approach. I will obtain 2 more sets of serial cardiac enzymes. I would obtain an echocardiogram was Doppler. We cannot start the patient on any aspirin at this point in view of her failing the swallow evaluation. We'll continue following up with her.
[2017-07-23 09:03] LABS: Basophils % (A) 1 %; CH 30.7; CHCM 32.1; Eosinophils # (A) 0.2 k/uL (0-0.7); Eosinophils % (A) 5 %; HCT 46.7 % (34.0-46.0); HDW 2.31; HGB 14.8 gm/dL (11.4-16.0); Luc # (Auto) 0.07; Luc % (Auto) 2; Lymphocytes # (A) 1.4 k/uL (1.0-4.8); Lymphocytes % (A) 28 %; MCH 30.4 pg (25.0-35.0); MCHC 31.6 g/dL (31.0-37.0); MCV 96.1 fL (80.0-100.0); Mean Platelet Volume 9.8; Monocytes # (A) 0.4 k/uL (0-1.0); Monocytes % (A) 8 %; Neutrophils # (A) 2.7 k/uL (1.3-7.7); Neutrophils % (A) 57 %; RBC 4.86 m/uL (3.80-5.40); RDW 12.7 % (11.5-15.5); WBC 4.9 k/uL (3.8-10.6); WBC (Perox) 5.08
[2017-07-23 09:05] LABS: ALT 16 U/L (9-52); AST 17 U/L (14-36); Alkaline Phosphatase 87 U/L (38-126); Anion Gap 12 mmol/L; Blood Urea Nitrogen 5 mg/dL (7-17); Carbon Dioxide 26 mmol/L (22-30); Chloride 103 mmol/L (98-107); Glucose 85 mg/dL (74-99); Non-African American GFR(MDRD) >60 (>60 ml/min/1.73 sqM); Potassium 3.6 mmol/L (3.5-5.1); Sodium 141 mmol/L (137-145); Total Bilirubin 0.5 mg/dL (0.2-1.3); Total Protein 6.6 g/dL (6.3-8.2)
[2017-07-23] MEDS: ENOXAPARIN 60 MG/0.6 ML SYRINGE SQ SCH ×2 (10:16→19:18)
[2017-07-23] MEDS: ASPIRIN 300 MG SUPP RECTAL SCH ×2 (10:16→19:16)
--- NOTE | 2017-07-23 10:28 | US ---
EXAMINATION TYPE: US carotid duplex BILAT DATE OF EXAM: 07/23/2017 COMPARISON: NONE CLINICAL HISTORY: CVA. EXAM MEASUREMENTS: RIGHT: Peak Systolic Velocity (PSV) cm/sec ----- Right CCA: 42.5 ----- Right ICA: 47.2 ----- Right ECA: 41.7 ICA/CCA ratio: 1.1 RIGHT: End Diastole cm/sec ----- Right CCA: 6.3 ----- Right ICA: 13.6 ----- Right ECA: 8.1 LEFT: Peak Systolic Velocity (PSV) cm/sec ----- Left CCA: 60.2 ----- Left ICA: 45.7 ----- Left ECA: 55.9 ICA/CCA ratio: 0.8 LEFT: End Diastole cm/sec ----- Left CCA: 12.2 ----- Left ICA: 13.1 ----- Left ECA: 4.7 VERTEBRALS (direction of flow): Right Vertebral: Antegrade Left Vertebral: Antegrade Rhythm: Arrhythmia Patient unable to cooperate with examiner making exam technically difficult. No significant velocity elevations. IMPRESSION: 1. Limited exam due to lack of cooperation with evidence of atherosclerotic plaque but no diagnostic evidence of significant hemodynamic stenosis. 2. Correlate for cardiac dysrhythmia.
--- NOTE | 2017-07-23 11:00 | P.HPIM ---
History of Present Illness H&P Date: 07/23/17 Chief Complaint: Altered mental status changes and weakness This is a 76-year-old -Surinamese female, a patient of Dr. Ca. 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 Patient also has a history of diabetes mellitus, hyperlipidemia , dementia, colon cancer, hypertension, COPD, former smoker and previous DVT of the lower extremity. Patient is a poor historian. She is brought in to [facility] for being more confused and worsening weakness on her right side. She was admitted to the sixth floor. Computed tomography scan completed in the emergency room showed generalized atrophy and small vessel ischemic change. No acute changes. Carotid Doppler and echo and EEG have been ordered. Urinalysis was negative drug screen was negative. She did have a mild elevation in her troponin. Cardiology has been consulted. She has Coumadin listed as her home medication. Patient is not sure why she is on this medication. Unclear if she was still on the Coumadin for her previous DVT. Her INR was 1. Patient reports not taking meds at home. Patient is refusing aspirin and Lovenox this morning. She lives with her and son. And uses a walker sometimes to ambulate. She denies any chest pain, shortness of breath, nausea or vomiting. Denies any bowel movement changes or urinary symptoms. Telemetry has not shown a normal sinus rhythm. Chest x-ray shows no acute process there is a nodular prominence in the right hilum. Ectasia of the aorta with marked prominence of the right hilum. CT of the chest is recommended to assess for mass adenopathy or possible aneurysm. Patient also failed a bedside swallow eval. Speech therapy has been consulted for further swallow evaluation. Patient currently nothing by mouth. She is asking for coffee. Review of Systems Please refer to HPI otherwise unremarkable Past Medical History Past Medical History: Cancer, COPD, CVA/TIA, Dementia, Diabetes Mellitus, Hyperlipidemia, Hypertension, Memory Impairment, Osteoarthritis (OA) Additional Past Medical History / Comment(s): POOR HISTORIAN, PAST MEDICAL HX WITH PT AND FAMILY. Colon CA, CONSTIPATION AT TIMES, CVA 1995,TIA 2006,GLAUCOMA , LT FOOT FX, PAST FALLS.( PER OLD CHART IS WAS STATED THAT PT HAD STOMACH CANCER REMOVED,GLUACOMA,ARRYTHMIA BUT PT/FAMILY COULD'NT RECALL IT). cva with right deficit History of Any Multi-Drug Resistant Organisms: None Reported Past Surgical History: Bowel Resection, Hysterectomy Additional Past Surgical History / Comment(s): COLONOSCOPY,RT CATARACT REMOVED, Past Anesthesia/Blood Transfusion Reactions: No Reported Reaction Past Psychological History: No Psychological Hx Reported Smoking Status: Former smoker Past Alcohol Use History: None Reported Additional Past Alcohol Use History / Comment(s): STARTED SMOKING AT AGE 17, SMOKED LESS THAN 1 PPD, QUIT 2001. DENIES ANY ETOH USE SINCE 2001. Past Drug Use History: None Reported - Past Family History Mother Family Medical History: Cancer Additional Family Medical History / Comment(s): UNK TYPE Father History Unknown: Yes Medications and Allergies Home Medications Medication Instructions Recorded Confirmed Type Ferrous Sulfate [Feosol] 325 mg PO DAILY 01/24/16 07/22/17 History Insulin Glargine [Lantus] 60 units SQ HS 01/24/16 07/22/17 History Insulin NPL/Insulin Lispro 5 units SQ BID 01/24/16 07/22/17 History [humaLOG MIX 75-25 VIAL] Warfarin [Coumadin] 10 mg PO Q48H 01/24/16 07/22/17 History amLODIPine [Norvasc] 10 mg PO DAILY 01/24/16 07/22/17 History cloNIDine HCL [Catapres] 0.1 mg PO HS 01/24/16 07/22/17 History metFORMIN HCL [Glucophage] 1,000 mg PO BID 01/24/16 07/22/17 History Aspirin EC [Ecotrin Low Dose] 81 mg PO DAILY #30 tablet. 01/25/16 07/22/17 Rx Furosemide [Lasix] 20 - 40 mg PO DAILY PRN 03/31/16 07/22/17 History Benzonatate [Tessalon Perles] 100 mg PO AC-SUPPER PRN 06/12/17 07/22/17 History Cholecalciferol [Vitamin D3] 2,000 unit PO DAILY 07/22/17 07/22/17 History Docusate [Colace] 100 mg PO DAILY 07/22/17 07/22/17 History Folic Acid 1 mg PO DAILY 07/22/17 07/22/17 History Hydrochlorothiazide [Hydrodiuril] 25 mg PO DAILY 07/22/17 07/22/17 History Lisinopril [Zestril] 10 mg PO DAILY 07/22/17 07/22/17 History Metoprolol Tartrate [Lopressor] 100 mg PO BID 07/22/17 07/22/17 History Potassium Chloride [K-Tab ER] 10 meq PO DAILY 07/22/17 07/22/17 History Pravastatin Sodium [Pravachol] 10 mg PO DAILY 07/22/17 07/22/17 History amLODIPine [Norvasc] 10 mg PO DAILY 07/22/17 07/22/17 History Allergies Allergy/AdvReac Type Severity Reaction Status Date / Time No Known Allergies Allergy Verified 07/22/17 11:29 Physical Exam Vitals: Vital Signs Temp Pulse Pulse Resp BP BP Pulse Ox 07/23/17 08:00 97.5 F L 77 16 173/84 95 07/23/17 04:00 97.1 F L 73 16 141/80 93 L 07/22/17 23:10 97.2 F L 72 16 144/89 96 07/22/17 19:57 96.9 F L 57 L 16 152/74 98 07/22/17 16:00 97.9 F 61 16 154/78 97 07/22/17 13:00 98.0 F 62 20 164/81 98 07/22/17 12:00 66 18 154/74 96 07/22/17 11:45 76 18 162/72 97 07/22/17 11:30 73 18 166/72 99 07/22/17 11:15 79 20 160/70 98 07/22/17 11:00 75 18 184/77 98 07/22/17 10:52 98.5 F 63 18 172/79 96 Intake and Output 07/22/17 07/23/17 07/23/17 22:59 06:59 14:59 Intake Total 750 600 Balance 750 600 Intake: IV 750 600 Dextrose 10 % in Water 150 250 ml @ 999 mls/hr IV ONCE STA Rx#:[id number] Sodium Chloride 0.9% 1, 600 600 000 ml @ 75 mls/hr IV . [id number] ONE Rx#:[id number] Other: Voiding Method Bedpan Bedpan Diaper Incontinent # Voids 2 3 Weight 61.5 kg Results CBC & Chem 7: 07/23/17 05:49 07/23/17 05:49 Labs: Abnormal Lab Results - Last 24 Hours (Table) 07/22/17 07/22/17 07/22/17 Range/Units 10:55 10:55 10:56 Hct (34.0-46.0) % BUN (7-17) mg/dL Glucose 129 H (74-99) mg/dL POC Glucose (mg/dL) 140 H (75-99) mg/dL AST 13 L (14-36) U/L Troponin I 0.049 H* (0.000-0.034) ng/mL LDL Cholesterol, Calc (0-99) mg/dL HDL Cholesterol (40-60) mg/dL 07/22/17 07/22/17 07/23/17 Range/Units 20:48 21:26 05:49 Hct (34.0-46.0) % BUN (7-17) mg/dL Glucose (74-99) mg/dL POC Glucose (mg/dL) 66 L 125 H (75-99) mg/dL AST (14-36) U/L Troponin I (0.000-0.034) ng/mL LDL Cholesterol, Calc 104 H (0-99) mg/dL HDL Cholesterol 64 H (40-60) mg/dL 07/23/17 07/23/17 07/23/17 Range/Units 05:49 05:49 05:49 Hct 46.7 H (34.0-46.0) % BUN 5 L (7-17) mg/dL Glucose (74-99) mg/dL POC Glucose (mg/dL) (75-99) mg/dL AST (14-36) U/L Troponin I 0.053 H* (0.000-0.034) ng/mL LDL Cholesterol, Calc (0-99) mg/dL HDL Cholesterol (40-60) mg/dL 07/23/17 Range/Units 06:09 Hct (34.0-46.0) % BUN (7-17) mg/dL Glucose (74-99) mg/dL POC Glucose (mg/dL) 168 H (75-99) mg/dL AST (14-36) U/L Troponin I (0.000-0.034) ng/mL LDL Cholesterol, Calc (0-99) mg/dL HDL Cholesterol (40-60) mg/dL Assessment and Plan Assessment: 1. Worsening right-sided weakness, slurred speech and confusion: Patient has prior history of CVA. Computed tomography scan of the brain showed no acute changes. Carotid Doppler, echocardiogram and EEG have been ordered. Neurology and cardiology are following. Telemetry is showing a normal sinus rhythm. Patient currently on Lovenox and rectal aspirin. Patient refused the Lovenox and aspirin this morning 2. Prior history of CVA with right-sided weakness and slurred speech 3. Failed swallow eval: Speech therapy consulted for dysphagia. Patient currently nothing by mouth 4. Essential hypertension: Blood pressure pills on hold due to her nothing by mouth diet. Continue IV Vasotec as needed 5. Diabetes mellitus type 2: Continue sliding scale coverage 6. Former smoker 7. Dementia 8. History of colon cancer with a possible bowel resection 9. History of Lower extremity DVT: This is probably why patient was on Coumadin. However appear she is not been taking the Coumadin. INR is only 1. DVT prophylaxis Lovenox Time with Patient: Greater than 30 (Greater than 50% of the total time spent in counseling and coordination of care.I performed an examination of the patient and discussed their management with the physician Flexible Babysitter. I have reviewed the Physician Flexible Babysitter's notes and agree with the documented findings and plan of care)
[2017-07-23 11:12] LABS: Glucose,Whole Blood 81 mg/dL (75-99)
--- NOTE | 2017-07-23 11:47 | ECHOF ---
Referral Reason:positive trop, cva/tia MEASUREMENTS -------- HEIGHT: 162.6 cm WEIGHT: 61.2 kg BP: 141/80 RVIDd: 2.6 cm (< 3.3) IVSd: 1.1 cm (0.6 - 1.1) LVIDd: 4.8 cm (3.9 - 5.3) LVPWd: 1.2 cm (0.6 - 1.1) IVSs: 1.5 cm LVIDs: 3.0 cm LVPWs: 1.5 cm LAESV Index (A-L): 33.44 ml/m Ao Diam: 2.9 cm (2.0 - 3.7) AV Cusp: 1.4 cm (1.5 - 2.6) LA Diam: 2.7 cm (2.7 - 3.8) MV EXCURSION: 12.690 mm (> 18.000) MV EF SLOPE: 63 mm/s (70 - 150) EPSS: 0.6 cm MV E Kenyon: 0.59 m/s MV DecT: 368 ms MV A Kenyon: 0.97 m/s MV E/A Ratio: 0.61 RAP: 5.00 mmHg RVSP: 8.03 mmHg FINDINGS -------- Sinus rhythm. This was a technically adequate study. The left ventricular size is normal. There is borderline concentric left ventricular hypertrophy. Overall left ventricular systolic function is normal with, an EF between 55 - 60 %. The right ventricle is normal in size and function. LA is midly dilated 29-33ml/m2. The right atrium is normal in size. Aortic valve is trileaflet and is mildly thickened. There is no evidence of aortic regurgitation. There is no evidence of aortic stenosis. The mitral valve leaflets are mildly thickened. There is trace to mild mitral regurgitation. Trace tricuspid regurgitation present. Right ventricular systolic pressure is normal at < 35 mmHg. There is no evidence of pulmonary hypertension. The pulmonic valve was not well visualized. The aortic root size is normal. Normal inferior vena cava with normal inspiratory collapse consistent with estimated right atrial pre ssure of 5 mmHg. Enlarged coronary sinus. The pericardium is normal. There is no pericardial effusion. CONCLUSIONS -------- 1. Sinus rhythm. 2. This was a technically adequate study. 3. The left ventricular size is normal. 4. There is borderline concentric left ventricular hypertrophy. 5. Overall left ventricular systolic function is normal with, an EF between 55 - 60 %. 6. LA is midly dilated 29-33ml/m2. 7. Aortic valve is trileaflet and is mildly thickened. 8. The mitral valve leaflets are mildly thickened. 9. There is trace to mild mitral regurgitation. 10. Trace tricuspid regurgitation present. 11. Right ventricular systolic pressure is normal at < 35 mmHg. 12. There is no evidence of pulmonary hypertension. 13. The pulmonic valve was not well visualized. 14. The aortic root size is normal. 15. Enlarged coronary sinus. 16. There is no pericardial effusion. TEST PREPARER: Romero Cassidy RDCS
[2017-07-23 11:53] LABS: Glucose,Whole Blood 80 mg/dL (75-99)
[2017-07-23] MEDS ORDERED: RX INFO: IV CONTRAST WAS GIVEN 1 EACH MISC MISCELLANE PRN (12:44)
--- NOTE | 2017-07-23 15:15 | FL ---
Modified barium swallow HISTORY: Aspiration 1 minutes 43 seconds fluoroscopy time supplied, no images Patient was evaluated in lateral projection under real-time fluoroscopy during ingestion of barium mi xed with applesauce and nectar thick, pudding thick consistencies of food. Patient was noted to show laryngeal penetration and aspiration, the exam was aborted. See dictated report speech pathology.
--- NOTE | 2017-07-23 15:20 | CT ---
EXAMINATION TYPE: CT chest w con DATE OF EXAM: 07/23/2017 COMPARISON: Chest x-ray 07/22/2017, CT scan 08/11/2014 HISTORY: Abnormal cxr. CT DLP: 267.8 mGycm Automated exposure control for dose reduction was used. CONTRAST: CT scan of the chest is performed with IV Contrast, patient injected with 85 mL of Omnipaque 300. FINDINGS: There is large caliber to the central pulmonary arteries indicating underlying pulmonary arterial hyp ertension. Right main pulmonary artery measures 2.6 cm in maximal dimension in the left measures appr oximately 2.2 cm. The heart is upper limits of normal in size without pericardial effusion. Atherosclerotic calcificati on in the aortic arch with bovine configuration to the arch vessels. No thoracic lymphadenopathy identified. Subsegmental changes at the right lung base adjacent to a rib deformity appears be related atelectasi s has a geographic or planar configuration on the sagittal image no definite nodularity identified. A therosclerotic change of the vasculature including the aorta noted. Coronary artery calcification see n. The heart is enlarged. Tiny pericardial effusion noted. There is centrilobular emphysema with mild hazy dependent atelectasis. Subsegmental areas of consolid ation bilaterally most typical atelectasis or scar. No pneumothorax or sizable pleural effusion.. The re is some scarring along the junctions of the right major and minor fissures. Images of the upper abdomen show mild adrenal gland thickening bilaterally noted. Likely related to h yperplasia. Hypodense lesion involving the upper pole the right kidney seen measuring 10 Hounsfield units suggest jorge luis of a simple cyst. Small accessory spleen noted. Bones: Hypertrophic and degenerative change of the spine seen with a superior endplate chronic appear ing deformity of the thoracolumbar junction. There appear to be rib deformities bilaterally most typi rupal remote trauma. IMPRESSION: 1. Enlarged pulmonary arteries bilaterally accounts for the chest x-ray abnormality correlate for pul monary arterial hypertension. 2. COPD with interlobular septal thickening at the lung bases compatible with a degree of chronic int erstitial lung disease. 3. Multiple rib deformities most pronounced seen in the posterior lower right rib cage with adjacent area of suspected atelectasis. Findings suggest remote trauma 4. There is a tiny pericardial effusion
--- NOTE | 2017-07-23 16:28 | P.PN ---
Subjective Progress Note Date: 07/23/17 Patient is a 76-year-old -[place] female who is being followed by the neurology service for altered mental status and weakness. Patient does have history of ischemic stroke with residual right hemiparesis and dysarthria. She came to [facility] emergency room for further evaluation. Computed tomography scan of the brain was done which showed generalized atrophy and small vessel ischemic changes. She was on Coumadin in the home setting and her INR was normal. Due to increasing difficulty with swallowing, patient was placed on rectal aspirin which she refused this morning. Patient was also placed on Lovenox which she is also refusing. Patient had a videofluoroscopic swallow done this morning which revealed aspiration. Carotid Doppler was negative for any hemodynamically significant stenosis. Lipid panel was mildly elevated and patient is on statin therapy. At the time of my evaluation, patient is resting comfortably in bed and appears to be in no acute distress. Patient is a poor historian and no family at the bedside. Objective - Vital Signs Vital signs: Vital Signs Temp 97.8 F 07/23/17 12:00 Pulse 70 07/23/17 12:00 Resp 20 07/23/17 12:00 BP 160/93 07/23/17 12:00 Pulse Ox 93 L 07/23/17 12:00 Intake & Output 07/22/17 07/23/17 07/23/17 18:59 06:59 18:59 Intake Total 1350 Output Total 200 Balance 1350 -200 Weight 61.5 kg 61.5 kg Intake: IV 1350 Dextrose 10 % in Water 150 250 ml @ 999 mls/hr IV ONCE STA Rx#:[id number] Sodium Chloride 0.9% 1, 1200 000 ml @ 75 mls/hr IV . [id number] ONE Rx#:[id number] Output: Urine 200 Other: Voiding Method Diaper Bedpan # Voids 2 3 - Exam PHYSICAL EXAM: GENERAL APPEARANCE: Patient is a well-developed, -[place] female who appears to be in no acute distress. HEENT: Normocephalic, atraumatic, no facial asymmetry is seen. Neck is supple with no masses felt. CARDIOVASCULAR: Regular rate and rhythm. ABDOMEN: Nontender, nondistended. EXTREMITIES: Show no edema or clubbing. NEUROLOGICAL EXAM: Patient is awake, alert, and oriented 3. Speech is dysarthric and language is normal. Strength is 4/5 on the right and 4/5 on the left. Sensory exam is normal to light touch in all 4 extremities. Patient has right facial weakness noted on cranial nerve testing. No tremors or seizure- like activity is noted. - Labs CBC & Chem 7: 07/23/17 05:49 07/23/17 05:49 Labs: Abnormal Lab Results - Last 24 Hours (Table) 07/22/17 07/22/17 07/23/17 Range/Units 20:48 21:26 05:49 Hct (34.0-46.0) % BUN (7-17) mg/dL POC Glucose (mg/dL) 66 L 125 H (75-99) mg/dL Troponin I (0.000-0.034) ng/mL LDL Cholesterol, Calc 104 H (0-99) mg/dL HDL Cholesterol 64 H (40-60) mg/dL 07/23/17 07/23/17 07/23/17 Range/Units 05:49 05:49 05:49 Hct 46.7 H (34.0-46.0) % BUN 5 L (7-17) mg/dL POC Glucose (mg/dL) (75-99) mg/dL Troponin I 0.053 H* (0.000-0.034) ng/mL LDL Cholesterol, Calc (0-99) mg/dL HDL Cholesterol (40-60) mg/dL 07/23/17 Range/Units 06:09 Hct (34.0-46.0) % BUN (7-17) mg/dL POC Glucose (mg/dL) 168 H (75-99) mg/dL Troponin I (0.000-0.034) ng/mL LDL Cholesterol, Calc (0-99) mg/dL HDL Cholesterol (40-60) mg/dL Assessment and Plan Plan: Impression: 1. Altered mental status, improved 2. Right hemiparesis secondary to previous stroke 3. Dysarthria secondary to previous stroke 4. Dysphagia 5. History of dementia 6. History of previous ischemic stroke Recommendation: Patient's altered mental status seems to have improved as she is oriented 3. She continues having dysphagia and did fail her swallow test. Her right hemiparesis and dysarthria are due to her old stroke. On my exam and reports that staff, patient's left-sided weakness is worse. Patient has been refusing her aspirin and Lovenox. Due to worsening symptoms, I will order an MRI of the brain. I encouraged patient she needs to accept rectal aspirin and subcutaneous Lovenox therapy. Her fasting lipid panel was slightly elevated and she continues on a statin therapy. Carotid Doppler was negative for any hemodynamically significant stenosis. EEG was done and results are pending. Homocystine level is pending. If dysphagia does not resolve patient may need PEG tube. Continue neurological checks. Continue current medical management. Cardiology has been consulted. I will continue to follow with you. Further recommendations to follow. I performed an examination of the patient and discussed the management with the MILL CONTROL OPERATOR. I have reviewed the MILL CONTROL OPERATOR notes and agree with the findings and plan of care.
[2017-07-23 16:32] LABS: Glucose,Whole Blood 89 mg/dL (75-99)
--- NOTE | 2017-07-23 19:05 | EEG ---
ELECTROENCEPHALOGRAM REPORT DATE OF SERVICE: 07/23/2017. REASON FOR TESTING: Altered mental status. DESCRIPTION OF THE PROCEDURE: This EEG was performed using a 21-channel digital electroencephalograph, following international 10-20 system. DESCRIPTION OF THE RECORDING: From the beginning of the tracing, and with patient's eyes closed, the background rhythm was mostly consisting of 8 Hz alpha frequency in the posterior occipital leads. No obvious asymmetry is seen. Photic stimulation was performed with a minimal driving response seen. No pathological waves were elicited. Frequent movement and muscle artifacts are seen. EKG artifacts are also noticed. The patient remains awake throughout the tracing. No epileptiform discharges were seen. Her EKG lead showed an irregularly irregular rhythm with a normal rate. INTERPRETATION: This awake EEG can be considered within normal limits, except her EKG lead showed an irregularly irregular rhythm with a normal rate. No epileptiform discharges were seen. The absence of epileptiform discharges does not rule out the diagnosis of epilepsy; therefore, clinical correlation is recommended. LIU / WEN: [id number] /
[2017-07-23 21:39] LABS: Glucose,Whole Blood 85 mg/dL (75-99)
[2017-07-24 06:18] LABS: Glucose,Whole Blood 124 mg/dL (75-99)
[2017-07-24] MEDS: INSULIN LISPRO (humaLOG) 300 UNIT/3 ML VIAL SQ SCH ×4 (06:20→21:01)
[2017-07-24 06:31] LABS: Basophils % (A) 0 %; CH 30.3; Eosinophils # (A) 0.1 k/uL (0-0.7); Eosinophils % (A) 2 %; HCT 47.9 % (34.0-46.0); HDW 2.36; Luc # (Auto) 0.04; Luc % (Auto) 1; Lymphocytes # (A) 0.9 k/uL (1.0-4.8); Lymphocytes % (A) 12 %; MCH 29.7 pg (25.0-35.0); MCHC 31.4 g/dL (31.0-37.0); MCV 94.8 fL (80.0-100.0); Mean Platelet Volume 9.4; Monocytes # (A) 0.3 k/uL (0-1.0); Monocytes % (A) 4 %; Neutrophils # (A) 6.2 k/uL (1.3-7.7); Neutrophils % (A) 82 %; RBC 5.05 m/uL (3.80-5.40); RDW 12.6 % (11.5-15.5); WBC 7.6 k/uL (3.8-10.6); WBC (Perox) 7.64
[2017-07-24 06:47] LABS: ALT 22 U/L (9-52); AST 15 U/L (14-36); Alkaline Phosphatase 96 U/L (38-126); Anion Gap 13 mmol/L; Blood Urea Nitrogen 8 mg/dL (7-17); Calcium 10.3 mg/dL (8.4-10.2); Carbon Dioxide 25 mmol/L (22-30); Chloride 100 mmol/L (98-107); Glucose 124 mg/dL (74-99); Non-African American GFR(MDRD) >60 (>60 ml/min/1.73 sqM); Sodium 138 mmol/L (137-145); Total Bilirubin 0.7 mg/dL (0.2-1.3); Total Protein 6.8 g/dL (6.3-8.2)
[2017-07-24 06:51] LABS: Potassium 3.9 mmol/L (3.5-5.1)
[2017-07-24] MEDS: ENOXAPARIN 60 MG/0.6 ML SYRINGE SQ SCH ×2 (07:49→19:52)
[2017-07-24] MEDS: ASPIRIN 300 MG SUPP RECTAL SCH (07:49)
--- NOTE | 2017-07-24 08:44 | P.PN ---
Subjective Progress Note Date: 07/24/17 This is a 76-year-old female patient who was brought by her family to the emergency room because of change in mental status. The patient currently is confused and she is unable to tell me any details. Apparently she had a stroke in the past with a residual right sided weakness and slurred speech. The family noticed that the left sided weakness was getting worse and also her speech was getting worse and also there is some swallow problem. The patient was seen and evaluated by a neurologist yesterday who felt that the patient did not have any acute stroke but she is scheduled to have an EEG and carotid duplex study which is in process to be done. There is no indication of any chest pain or chest discomfort. There is no indication of any prior cardiac history at this point. The patient is receiving Coumadin for unknown reason. The EKG showed sinus rhythm without any ischemic changes. We get involved in the care of the patient because of abnormal cardiac enzymes. She underwent an echocardiogram in 2014 and that revealed normal LV function. Objective - Vital Signs Vital signs: Vital Signs Temp 97 F L 07/24/17 03:15 Pulse 85 07/24/17 03:15 Resp 16 07/24/17 03:15 BP 148/84 07/24/17 03:15 Pulse Ox 97 07/24/17 03:15 Intake & Output 07/23/17 07/24/17 07/24/17 18:59 06:59 18:59 Intake Total 610 Output Total 200 Balance -200 610 Weight 64 kg Intake: IV 610 0.9% NS FLUSH 10 10 Sodium Chloride 0.9% 1, 600 000 ml @ 75 mls/hr IV . [id number] ONE Rx#:[id number] Output: Urine 200 Other: Voiding Method Bedpan Bedpan # Voids 1 - Constitutional General appearance: Present: no acute distress - Respiratory Respiratory: bilateral: diminished - Cardiovascular Rhythm: regular Heart sounds: normal: S1, S2 - Labs CBC & Chem 7: 07/24/17 05:33 07/24/17 05:33 Labs: Abnormal Lab Results - Last 24 Hours (Table) 07/23/17 07/23/17 07/24/17 Range/Units 05:49 05:49 05:33 Hct 46.7 H 47.9 H (34.0-46.0) % Lymphocytes # 0.9 L (1.0-4.8) k/uL BUN 5 L (7-17) mg/dL Glucose (74-99) mg/dL POC Glucose (mg/dL) (75-99) mg/dL Calcium (8.4-10.2) mg/dL 07/24/17 07/24/17 Range/Units 05:33 06:16 Hct (34.0-46.0) % Lymphocytes # (1.0-4.8) k/uL BUN (7-17) mg/dL Glucose 124 H (74-99) mg/dL POC Glucose (mg/dL) 124 H (75-99) mg/dL Calcium 10.3 H (8.4-10.2) mg/dL Assessment and Plan Assessment: This is a 76-year-old -[place] Citizen female patient with history of stroke and right side weakness who was brought by her family to the emergency room with a change in mental status as well as worsening of the right-sided weakness. The computed tomography scan of the brain did not show any evidence of acute intracranial changes. The patient is confused. No indication of any chest pain or chest discomfort. The first set of cardiac enzymes came in to be unremarkable and the EKG did not show any acute changes. At this point I recommended a conservative medical approach. Unfortunately the patient failed a swallow evaluation and she, be started on any aspirin. They are looking to have the PICU upon her. Cardiac-melendrez she is stable. We'll follow-up with the patient on when necessary case.
--- NOTE | 2017-07-24 11:11 | P.PN ---
Subjective Progress Note Date: 07/24/17 This is a 76-year-old -[place] female, a patient of Dr. Ca. 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 Patient also has a history of diabetes mellitus, hyperlipidemia , dementia, colon cancer, hypertension, COPD, former smoker and previous DVT of the lower extremity. Patient is a poor historian. She is brought in to [facility] for being more confused and worsening weakness on her right side. She was admitted to the sixth floor. Computed tomography scan completed in the emergency room showed generalized atrophy and small vessel ischemic change. No acute changes. Carotid Doppler and echo and EEG have been ordered. Urinalysis was negative drug screen was negative. She did have a mild elevation in her troponin. Cardiology has been consulted. She has Coumadin listed as her home medication. Patient is not sure why she is on this medication. Unclear if she was still on the Coumadin for her previous DVT. Her INR was 1. Patient reports not taking meds at home. Patient is refusing aspirin and Lovenox this morning. She lives with her and son. And uses a walker sometimes to ambulate. She denies any chest pain, shortness of breath, nausea or vomiting. Denies any bowel movement changes or urinary symptoms. Telemetry has not shown a normal sinus rhythm. Chest x-ray shows no acute process there is a nodular prominence in the right hilum. Ectasia of the aorta with marked prominence of the right hilum. CT of the chest is recommended to assess for mass adenopathy or possible aneurysm. Patient also failed a bedside swallow eval. Speech therapy has been consulted for further swallow evaluation. Patient currently nothing by mouth. She is asking for coffee. 07/24/2017 patient sleeping comfortably. She is arousable. Still having some confusion. The right-sided weakness and slurred speech per neurology is due to her old stroke. Patient failed her modified barium swallow evaluation yesterday. Speech therapy is to reevaluate her again today. Discussed case with dietitian. She is recommending some kind of nutrition support either NG tube or PEG tube if there is no improvement in her swallow. Awaiting speech therapy evaluation for today. Objective - Vital Signs Vital signs: Vital Signs Temp 97 F L 07/24/17 08:00 Pulse 97 07/24/17 08:00 Resp 16 07/24/17 08:00 BP 141/47 07/24/17 08:00 Pulse Ox 97 07/24/17 08:00 Intake & Output 07/23/17 07/24/17 07/24/17 18:59 06:59 18:59 Intake Total 610 Output Total 200 200 Balance -200 610 -200 Weight 64 kg Intake: IV 610 0.9% NS FLUSH 10 10 Sodium Chloride 0.9% 1, 600 000 ml @ 75 mls/hr IV . [id number] ONE Rx#:[id number] Output: Urine 200 200 Other: Voiding Method Bedpan Bedpan Bedpan # Voids 1 - Exam Head normocephalic Neck supple Lungs clear to auscultation bilaterally no wheezing or crackles Heart regular rate and rhythm S1-S2, no rub or gallop Abdomen is soft nontender nondistended positive bowel sounds no hepatosplenomegaly Extremities no edema Neuro sleepy but arousable. Weakness still present on the right side - Labs CBC & Chem 7: 07/24/17 05:33 07/24/17 05:33 Labs: Abnormal Lab Results - Last 24 Hours (Table) 07/24/17 07/24/17 07/24/17 Range/Units 05:33 05:33 06:16 Hct 47.9 H (34.0-46.0) % Lymphocytes # 0.9 L (1.0-4.8) k/uL Glucose 124 H (74-99) mg/dL POC Glucose (mg/dL) 124 H (75-99) mg/dL Calcium 10.3 H (8.4-10.2) mg/dL Assessment and Plan Assessment: 1. Possible TIA with Worsening right-sided weakness, slurred speech and confusion: Patient has prior history of CVA. Computed tomography scan of the brain showed no acute changes. Neurology and cardiology are following. Telemetry is showing a normal sinus rhythm. Patient currently on Lovenox and rectal aspirin. Carotid Doppler was a limited study but showed no significant hemodynamic stenosis. Echo shows an EF of 55-60%. EEG showed no evidence of seizure activity. 2. Prior history of CVA with right-sided weakness and slurred speech 3. Failed modified barium swallow evaluation: Patient is currently nothing by mouth. She is to be reevaluated by speech therapy today. If no improvement in her swallow didn't need to discuss possible PEG tube placement or feeding via NG tube. 4. Essential hypertension: Blood pressure pills on hold due to her nothing by mouth diet. Continue IV Vasotec as needed 5. Diabetes mellitus type 2: Continue sliding scale coverage 6. Former smoker 7. Dementia 8. History of colon cancer with a possible bowel resection 9. History of Lower extremity DVT: This is probably why patient was on Coumadin. However appear she is not been taking the Coumadin. INR is only 1. DVT prophylaxis Lovenox
--- NOTE | 2017-07-24 11:18 | CDI ---
In responding to this query, please exercise your independent professional judgment. The [facility] Coding Staff and Clinical Documentation Specialists appreciate your assistance in clarifying documentation, maintaining compliance with coding guidelines, accurately documenting patients condition and capturing severity of illness. The fact that a question is asked does not imply that any particular answer is desired or expected. Communication forms are a method of clarifying documentation and are not made part of the Legal Health Record. Thank you in advance for your clarification. Last Revision, November 2015 Chas Wells [address] [facility] [place] [address] Documentation Clarification Form Date: 07/24/2017 10:56:00 AM From: Juani Richardson Admit Date: 07/22/2017 12:43:00 PM Patient Name: Soledad Enriquez Visit Number: [id number] Discharge Date: Dr. Sloan Bolton/Miya Dooley CUSTOMER ASSOCIATE-Emily Altered mental status was documented in the ER evaluation, H/P and your consult. Patient history/risk factors: CVA, Dementia, Diabetes Mellitus, Hypertension, Colon CA, Former smoker Clinical Indicators: Per Family member she has altered mental status. Her residual effects for prior CVA were all a little bit worse, increase weakness to left side. EMS notes A/O x2, normally A/O X3. Vital signs: 172/79 63 18 98.5 Labs: WBC 5.5, Troponin I 0.049, 0.053, UA -Negative Chest x-Ray: No acute process CT Brain: No acute intracranial hemorrhage or midline shift identified. Moderate to severe diffuse age-related cerebral atrophy and chronic small vessel ischemic changes. ECHO: EF 55-60 % Barium swallow: Patient was noted to show laryngeal penetration and aspiration, exam was aborted Treatment: Neuro checks per orders Monitor Labs In your professional opinion, please clarify the etiology of the altered mental status, if known. Dementia (specify Type and if with/without Behavioral Disturbance) Encephalopathy (specify Type, Metabolic, Toxic, Other, and Underlying Medical Illness) Delirium (specify cause): Other condition (please specify) Unable to determine Please document in your progress in order to capture severity of illness and risk of mortality. Include clinical findings that support your diagnosis. FYI: Press F11 to launch patient chart. ARSENIO
[2017-07-24 11:46] LABS: Glucose,Whole Blood 98 mg/dL (75-99)
--- NOTE | 2017-07-24 13:42 | MR ---
EXAMINATION TYPE: MR brain wo con DATE OF EXAM: 07/24/2017 1:26 PM. COMPARISON: Previous study dated 02/15/[address] scan of the brain dated 07/22/2017. HISTORY: Stroke Technique: Multiplanar, multiecho imaging of the brain was obtained without intravenous contrast. A fast brain protocol was utilized, limiting sensitivity. FINDINGS: There is a stable area of encephalomalacia involving the anterior aspect of the corpus rupal losum. The pituitary gland is poorly assessed due to the facets brain protocol. Midline structures ar e otherwise unremarkable. There is a normal craniocervical junction. Echoplanar diffusion imaging fails to show restricted diffusion. There are generalized changes of sulcal prominence and ventriculomegaly, compatible with atrophic marie nge. There is disproportionate enlargement of the lateral ventricles which is increased from previous . I could not exclude some degree of normal pressure hydrocephalus. There are normal vascular flow voids. The orbits are normal. There is no evidence of a CP angle mass lesion. There is extensive punctate and confluent periventricular white matter signal compatible with chronic ischemic change and small vessel disease. This has increased from previous. IMPRESSION: 1. NO ACUTE INTRACRANIAL ABNORMALITY. 2. I COULD NOT EXCLUDE SOME DEGREE OF NORMAL PRESSURE HYDROCEPHALUS. 3. ATROPHIC CHANGE. 4. PERIVENTRICULAR WHITE MATTER CHANGE MOST CONSISTENT WITH A COMBINATION OF SMALL VESSEL DISEASE AND CHRONIC ISCHEMIC CHANGE.
--- NOTE | 2017-07-24 15:06 | P.PN ---
Subjective Progress Note Date: 07/24/17 Patient is a 76-year-old -E[place]ian female who is being followed by the neurology service for altered mental status and weakness. Patient does have history of ischemic stroke with residual right hemiparesis and dysarthria. She came to [facility] emergency room for further evaluation. Computed tomography scan of the brain was done which showed generalized atrophy and small vessel ischemic changes. She was on Coumadin in the home setting and her INR was normal. Due to increasing difficulty with swallowing, patient was placed on rectal aspirin which she refused this morning. Patient was also placed on Lovenox which she is also refusing. Patient had a videofluoroscopic swallow done this morning which revealed aspiration. Carotid Doppler was negative for any hemodynamically significant stenosis. Lipid panel was mildly elevated and patient is on statin therapy. At the time of my evaluation, patient is resting comfortably in bed and appears to be in no acute distress. Patient is a poor historian and no family at the bedside. 07/24/2017 Patient is a pleasant 76-year-old -[place]ian female who is being followed by the neurology service for altered mental status and weakness. Patient is much more alert today. Dysarthria continues. Right hemiparesis and dysarthria are residual from previous stroke. Patient continues to have dysphagia. She failed another swallow eval. Consult was placed for possible PEG placement. Yesterday's exam revealed possible worsening of symptoms. An MRI was obtained. MRI showed no acute intracranial abnormality but did show some degree of normal pressure hydrocephalus. MRI also showed stable area of encephalomalacia in the anterior aspect of the corpus callosum. At the time of my evaluation, patient is resting comfortably in bed and appears to be in no acute distress. Objective - Vital Signs Vital signs: Vital Signs Temp 97.5 F L 07/24/17 12:00 Pulse 72 07/24/17 12:00 Resp 18 07/24/17 12:00 BP 140/74 07/24/17 12:00 Pulse Ox 97 07/24/17 12:00 Intake & Output 07/23/17 07/24/17 07/24/17 18:59 06:59 18:59 Intake Total 610 Output Total 200 200 Balance -200 610 -200 Weight 64 kg 64 kg Intake: IV 610 0.9% NS FLUSH 10 10 Sodium Chloride 0.9% 1, 600 000 ml @ 75 mls/hr IV . [id number] ONE Rx#:[id number] Output: Urine 200 200 Other: Voiding Method Bedpan Bedpan Bedpan # Voids 1 - Exam PHYSICAL EXAM: GENERAL APPEARANCE: Patient is a well-developed, -[place]ian female who appears to be in no acute distress. HEENT: Normocephalic, atraumatic, no facial asymmetry is seen. Neck is supple with no masses felt. CARDIOVASCULAR: Regular rate and rhythm. ABDOMEN: Nontender, nondistended. EXTREMITIES: Show no edema or clubbing. NEUROLOGICAL EXAM: Patient is awake, alert, and oriented 3. Speech is dysarthric and language is normal. Strength is 3/5 on the right upper extremity and 1/5 on the right lower extremity and 4 minus/5 on the left upper and lower extremity. Sensory exam is normal to light touch in all 4 extremities. Patient has right facial weakness noted on cranial nerve testing. No tremors or seizure-like activity is noted. - Labs CBC & Chem 7: 07/24/17 05:33 07/24/17 05:33 Labs: Abnormal Lab Results - Last 24 Hours (Table) 07/24/17 07/24/17 07/24/17 Range/Units 05:33 05:33 06:16 Hct 47.9 H (34.0-46.0) % Lymphocytes # 0.9 L (1.0-4.8) k/uL Glucose 124 H (74-99) mg/dL POC Glucose (mg/dL) 124 H (75-99) mg/dL Calcium 10.3 H (8.4-10.2) mg/dL Assessment and Plan Plan: Impression: 1. Altered mental status, improved 2. Right hemiparesis secondary to previous stroke 3. Dysarthria secondary to previous stroke 4. Dysphagia 5. History of dementia 6. History of previous ischemic stroke Recommendation: Patient's altered mental status seems to have improved as she is oriented 3. She continues to have dysphagia and did fail her swallow test again. Her right hemiparesis and dysarthria are due to her old stroke. Patient has been refusing her aspirin and Lovenox at times. Staff reports she is now accepting aspirin and Lovenox. As mentioned above, MRI of the brain showed possible normal pressure hydrocephalus. MRA showed no acute intracranial abnormality. MRI did show stable area of an encephalomalacia involving the anterior aspect of the corpus callosum. Normal pressure hydrocephalus can be worked up as an outpatient. We can perform a large volume drainage and evaluate results. Her fasting lipid panel was slightly elevated and she continues on a statin therapy. Carotid Doppler was negative for any hemodynamically significant stenosis. EEG can be considered within normal limits except EKG shows an irregularly irregular rhythm with a normal rate. Homocystine level is 13.8 which is within normal limits. Continue neurological checks. Continue current medical management. Cardiology has been following. I will continue to follow with you. Further recommendations to follow. I performed an examination of the patient and discussed the management with the WINE CONSULTANT. I have reviewed the WINE CONSULTANT notes and agree with the findings and plan of care.
[2017-07-24 16:43] LABS: Glucose,Whole Blood 89 mg/dL (75-99)
[2017-07-24 20:55] LABS: Glucose,Whole Blood 90 mg/dL (75-99)
[2017-07-24] MEDS: ENALAPRILAT 1.25 MG/ML 1 ML VIAL IVP PRN (22:46)
[2017-07-25 06:03] LABS: Glucose,Whole Blood 90 mg/dL (75-99)
[2017-07-25] MEDS: INSULIN LISPRO (humaLOG) 300 UNIT/3 ML VIAL SQ SCH ×4 (06:37→21:37)
[2017-07-25 06:45] LABS: Basophils # (A) 0.1 k/uL (0-0.2); Basophils % (A) 1 %; CH 30.7; CHCM 31.8; Eosinophils # (A) 0.2 k/uL (0-0.7); Eosinophils % (A) 2 %; HCT 45.9 % (34.0-46.0); HDW 2.11; HGB 14.2 gm/dL (11.4-16.0); Luc # (Auto) 0.11; Luc % (Auto) 2; Lymphocytes # (A) 1.6 k/uL (1.0-4.8); Lymphocytes % (A) 21 %; MCH 29.9 pg (25.0-35.0); MCHC 30.9 g/dL (31.0-37.0); MCV 96.7 fL (80.0-100.0); Mean Platelet Volume 9.9; Monocytes # (A) 0.5 k/uL (0-1.0); Monocytes % (A) 7 %; Neutrophils # (A) 5.2 k/uL (1.3-7.7); Neutrophils % (A) 68 %; RBC 4.75 m/uL (3.80-5.40); RDW 13.9 % (11.5-15.5); WBC 7.7 k/uL (3.8-10.6)
[2017-07-25 06:53] LABS: ALT 20 U/L (9-52); AST 18 U/L (14-36); Alkaline Phosphatase 81 U/L (38-126); Anion Gap 11 mmol/L; Blood Urea Nitrogen 18 mg/dL (7-17); Calcium 10.1 mg/dL (8.4-10.2); Carbon Dioxide 30 mmol/L (22-30); Chloride 102 mmol/L (98-107); Glucose 82 mg/dL (74-99); Non-African American GFR(MDRD) 57 (>60 ml/min/1.73 sqM); Potassium 3.6 mmol/L (3.5-5.1); Sodium 143 mmol/L (137-145); Total Bilirubin 0.6 mg/dL (0.2-1.3); Total Protein 6.3 g/dL (6.3-8.2)
[2017-07-25] MEDS: ASPIRIN 300 MG SUPP RECTAL SCH (08:04)
[2017-07-25] MEDS: ENOXAPARIN 60 MG/0.6 ML SYRINGE SQ SCH ×2 (08:04→09:03)
--- NOTE | 2017-07-25 09:10 | CONS ---
CONSULTATION DATE OF SERVICE: 07/25/17 REASON FOR CONSULTATION: Oral pharyngeal dysphagia for PEG tube placement. HISTORY OF PRESENT ILLNESS: The patient is a 76 -year-old -[place] female with known history of CVA in the past with right-sided hemiparesis and slurred speech. She was admitted to hospital with confusion, altered mental status. She had a CT of the head done that showed no new changes other than small vessel ischemia. While she was in the hospital, she has been having oral pharyngeal dysphagia and had a video thorascopy barium esophagogram that showed evidence of aspiration and hence we are consulted for an upper endoscopy with PEG tube placement. Presently, she is strictly maintained n.p.o. She denies any abdominal pain. No nausea, vomiting. PAST MEDICAL HISTORY: Significant for CVA. Recent CVA, history of hypertension, COPD, diabetes mellitus, hypertension, hyperlipidemia, degenerative joint disease. PAST SURGICAL HISTORY: Hysterectomy and a bowel resection. MEDICATIONS: Lantus insulin, Catapres, Norvasc, aspirin, Lasix, Lipitor, hydrochlorothiazide, Zestril, Lopressor, Pravachol, Norvasc. ALLERGIES: None. SOCIAL HISTORY: No smoking or alcohol use. FAMILY HISTORY: Unremarkable. REVIEW OF SYSTEMS: The patient denies any chest pain, shortness of breath. Genitourinary: No dysuria, hematuria. Musculoskeletal: She denies any symptoms. Neurological: Recent stroke. ENT: Unremarkable. Psychiatric unremarkable. Hematology unremarkable. Constitutional: No recent weight loss. No fever, chills, night sweats. PHYSICAL EXAMINATION: She appears comfortable. No apparent distress. VITAL SIGNS: Stable. Blood pressure is 176/85, pulse 87, temperature 97.4. HEENT examination unremarkable. Conjunctivae pink. Sclerae anicteric. Oral cavity no lesions. Neck: No jugular venous distention or lymph node enlargement. Chest clear to auscultation. HEART: Regular rate and rhythm. ABDOMEN: Soft. Bowel sounds are positive. No organomegaly. Extremities no pedal edema. Skin no rashes. Neuro: She is awake, has some slurred speech. Oriented to name and place. Right-sided hemiparesis. LABS: From today, WBC 7.7, hemoglobin 14.5, platelets are normal. Basic metabolic panel is within normal limits. PT/INR is normal. IMPRESSION: 1. This is a lady who was admitted to hospital with altered mental status and known history of cerebrovascular accident in the recent past, presently maintained on Lovenox. Recent CT of the head did not show any acute changes. She had a modified barium swallow done that showed evidence of penetration as well as aspiration. 2. History of cerebrovascular accident with right-sided hemiparesis, maintained on Lovenox. RECOMMENDATIONS: We will proceed with an upper endoscopy with PEG tube placement tomorrow. In the meantime, we will hold the Lovenox for tonight and tomorrow dose, maintain strict n.p.o. and we will follow her closely during hospital stay. Thank you for this consultation. MMODL / IJN: [id number] /
--- NOTE | 2017-07-25 11:34 | P.PN ---
Subjective Patient is a 76-year-old -[place] female who is being followed by the neurology service for altered mental status and weakness. Patient does have history of ischemic stroke with residual right hemiparesis and dysarthria. She came to [facility] emergency room for further evaluation. Computed tomography scan of the brain was done which showed generalized atrophy and small vessel ischemic changes. She was on Coumadin in the home setting and her INR was normal. Due to increasing difficulty with swallowing, patient was placed on rectal aspirin which she refused this morning. Patient was also placed on Lovenox which she is also refusing. Patient had a videofluoroscopic swallow done this morning which revealed aspiration. Carotid Doppler was negative for any hemodynamically significant stenosis. Lipid panel was mildly elevated and patient is on statin therapy. At the time of my evaluation, patient is resting comfortably in bed and appears to be in no acute distress. Patient is a poor historian and no family at the bedside. 07/24/2017 Patient is a pleasant 76-year-old -[place] female who is being followed by the neurology service for altered mental status and weakness. Patient is much more alert today. Dysarthria continues. Right hemiparesis and dysarthria are residual from previous stroke. Patient continues to have dysphagia. She failed another swallow eval. Consult was placed for possible PEG placement. Yesterday's exam revealed possible worsening of symptoms. An MRI was obtained. MRI showed no acute intracranial abnormality but did show some degree of normal pressure hydrocephalus. MRI also showed stable area of encephalomalacia in the anterior aspect of the corpus callosum. At the time of my evaluation, patient is resting comfortably in bed and appears to be in no acute distress. 07/25/2017 Patient is 76-year-old -[place] female is being followed by the neurology service for altered mental status and weakness. Patient continues to have right hemiparesis and dysarthria from previous stroke. Patient continues to have dysphagia and consult was made for possible PEG placement. Patient continues to remain nothing by mouth. At the time of my evaluation, patient is resting comfortably in bed and appears to be in no acute distress. Objective - Vital Signs Vital signs: Vital Signs Temp 97.6 F 07/25/17 08:00 Pulse 89 07/25/17 08:00 Resp 16 07/25/17 08:00 BP 142/64 07/25/17 08:00 Pulse Ox 100 07/25/17 08:00 Intake & Output 07/24/17 07/25/17 07/25/17 18:59 06:59 18:59 Intake Total 20 Output Total 200 Balance -200 20 Weight 64 kg 68 kg Intake: IV 20 0.9% NS FLUSH 10 20 Output: Urine 200 Other: Voiding Method Bedpan Bedpan # Voids 1 - Exam PHYSICAL EXAM: GENERAL APPEARANCE: Patient is a well-developed, -[place] female who appears to be in no acute distress. HEENT: Normocephalic, atraumatic, no facial asymmetry is seen. Neck is supple with no masses felt. CARDIOVASCULAR: Regular rate and rhythm. ABDOMEN: Nontender, nondistended. EXTREMITIES: Show no edema or clubbing. NEUROLOGICAL EXAM: Patient is awake, alert, and oriented 3. Speech is dysarthric and language is normal. Strength is 3/5 on the right upper extremity and 1/5 on the right lower extremity and 4 minus/5 on the left upper and lower extremity. Sensory exam is normal to light touch in all 4 extremities. Patient has right facial weakness noted on cranial nerve testing. No tremors or seizure-like activity is noted. - Labs CBC & Chem 7: 07/25/17 05:37 07/25/17 05:37 Labs: Abnormal Lab Results - Last 24 Hours (Table) 07/25/17 07/25/17 Range/Units 05:37 05:37 MCHC 30.9 L (31.0-37.0) g/dL BUN 18 H (7-17) mg/dL Assessment and Plan Plan: Impression: 1. Altered mental status, improved 2. Right hemiparesis secondary to previous stroke 3. Dysarthria secondary to previous stroke 4. Dysphagia 5. History of dementia 6. History of previous ischemic stroke Recommendation: Patient's altered mental status seems to have improved as she is oriented 3. She continues to have dysphagia and did fail her swallow test again. Consult was done for possible PEG placement. Her right hemiparesis and dysarthria are due to her old stroke. Continue aspirin and Lovenox. Once PEG tube is placed antiplatelet therapy can be given through the PEG. As mentioned above, MRI of the brain showed possible normal pressure hydrocephalus. MRA showed no acute intracranial abnormality. MRI did show stable area of an encephalomalacia involving the anterior aspect of the corpus callosum. Normal pressure hydrocephalus can be worked up as an outpatient. Her fasting lipid panel was slightly elevated and she continues on a statin therapy. Carotid Doppler was negative for any hemodynamically significant stenosis. EEG can be considered within normal limits except EKG shows an irregularly irregular rhythm with a normal rate. Homocystine level is 13.8 which is within normal limits. Continue neurological checks. Continue current medical management. Cardiology has been following. I will continue to follow with you on an as- needed basis. Feel free to call with any questions or concerns. I performed an examination of the patient and discussed the management with the WRAPPER DIPPER. I have reviewed the WRAPPER DIPPER notes and agree with the findings and plan of care.
[2017-07-25 12:06] LABS: Glucose,Whole Blood 74 mg/dL (75-99)
[2017-07-25] MEDS ORDERED: SODIUM CHLORIDE 0.9% 1,000 ML IV STA (12:20)
--- NOTE | 2017-07-25 16:49 | P.PN ---
Subjective Progress Note Date: 07/25/17 This is a 76-year-old -Gren[place] female, a patient of Dr. Ca. 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 Patient also has a history of diabetes mellitus, hyperlipidemia , dementia, colon cancer, hypertension, COPD, former smoker and previous DVT of the lower extremity. Patient is a poor historian. She is brought in to [facility] for being more confused and worsening weakness on her right side. She was admitted to the sixth floor. Computed tomography scan completed in the emergency room showed generalized atrophy and small vessel ischemic change. No acute changes. Carotid Doppler and echo and EEG have been ordered. Urinalysis was negative drug screen was negative. She did have a mild elevation in her troponin. Cardiology has been consulted. She has Coumadin listed as her home medication. Patient is not sure why she is on this medication. Unclear if she was still on the Coumadin for her previous DVT. Her INR was 1. Patient reports not taking meds at home. Patient is refusing aspirin and Lovenox this morning. She lives with her and son. And uses a walker sometimes to ambulate. She denies any chest pain, shortness of breath, nausea or vomiting. Denies any bowel movement changes or urinary symptoms. Telemetry has not shown a normal sinus rhythm. Chest x-ray shows no acute process there is a nodular prominence in the right hilum. Ectasia of the aorta with marked prominence of the right hilum. CT of the chest is recommended to assess for mass adenopathy or possible aneurysm. Patient also failed a bedside swallow eval. Speech therapy has been consulted for further swallow evaluation. Patient currently nothing by mouth. She is asking for coffee. 07/24/2017 patient sleeping comfortably. She is arousable. Still having some confusion. The right-sided weakness and slurred speech per neurology is due to her old stroke. Patient failed her modified barium swallow evaluation yesterday. Speech therapy is to reevaluate her again today. Discussed case with dietitian. She is recommending some kind of nutrition support either NG tube or PEG tube if there is no improvement in her swallow. Awaiting speech therapy evaluation for today. On 07/25/2017 patient was seen and examined she is laying comfortably in bed she is answering questions appropriately currently she is nothing by mouth she failed all swallow evaluation at this time gastroenterology consulted in that regard to PEG tube placement however we are still awaiting family for discussion and the signing of the consent for the tube placement Objective - Vital Signs Vital signs: Vital Signs Temp 97.3 F L 07/25/17 15:18 Pulse 73 07/25/17 15:18 Resp 16 07/25/17 15:18 BP 140/72 07/25/17 15:18 Pulse Ox 95 07/25/17 15:18 Intake & Output 07/24/17 07/25/17 07/25/17 18:59 06:59 18:59 Intake Total 20 360 Output Total 200 Balance -200 20 360 Weight 64 kg 68 kg Intake: IV 20 10 0.9% NS FLUSH 10 20 10 Intake, IV Titration 350 Amount Sodium Chloride 0.9% 1, 350 000 ml @ 50 mls/hr IV . Q20H STA Rx#:[id number] Output: Urine 200 Other: Voiding Method Bedpan Bedpan # Voids 1 - Labs CBC & Chem 7: 07/25/17 05:37 07/25/17 05:37 Labs: Abnormal Lab Results - Last 24 Hours (Table) 07/25/17 07/25/17 07/25/17 Range/Units 05:37 05:37 12:03 MCHC 30.9 L (31.0-37.0) g/dL BUN 18 H (7-17) mg/dL POC Glucose (mg/dL) 74 L (75-99) mg/dL
[2017-07-25 16:56] LABS: Glucose,Whole Blood 77 mg/dL (75-99)
[2017-07-25 21:22] LABS: Glucose,Whole Blood 67 mg/dL (75-99)
[2017-07-25] MEDS ORDERED: DEXTROSE 10 % IN WATER 250 ML IV STA (21:37)
[2017-07-25 21:51] LABS: Glucose,Whole Blood 128 mg/dL (75-99)
[2017-07-26 00:25] LABS: Glucose,Whole Blood 85 mg/dL (75-99)
[2017-07-26 02:27] LABS: Glucose,Whole Blood 77 mg/dL (75-99)
[2017-07-26 06:02] LABS: Glucose,Whole Blood 95 mg/dL (75-99)
[2017-07-26] MEDS: INSULIN LISPRO (humaLOG) 300 UNIT/3 ML VIAL SQ SCH ×4 (06:05→21:14)
[2017-07-26 06:32] LABS: Basophils % (A) 1 %; CH 30.4; CHCM 31.9; Eosinophils # (A) 0.2 k/uL (0-0.7); Eosinophils % (A) 4 %; HCT 43.4 % (34.0-46.0); HDW 2.25; Luc # (Auto) 0.07; Luc % (Auto) 1; Lymphocytes # (A) 1.3 k/uL (1.0-4.8); Lymphocytes % (A) 22 %; MCH 30.8 pg (25.0-35.0); MCHC 32.1 g/dL (31.0-37.0); MCV 95.8 fL (80.0-100.0); Mean Platelet Volume 8.1; Monocytes # (A) 0.5 k/uL (0-1.0); Monocytes % (A) 8 %; Neutrophils # (A) 3.8 k/uL (1.3-7.7); Neutrophils % (A) 65 %; RBC 4.53 m/uL (3.80-5.40); RDW 12.5 % (11.5-15.5); WBC 5.9 k/uL (3.8-10.6)
[2017-07-26 06:41] LABS: ALT 20 U/L (9-52); AST 16 U/L (14-36); Alkaline Phosphatase 79 U/L (38-126); Anion Gap 9 mmol/L; Blood Urea Nitrogen 22 mg/dL (7-17); Calcium 9.9 mg/dL (8.4-10.2); Carbon Dioxide 31 mmol/L (22-30); Chloride 105 mmol/L (98-107); Glucose 84 mg/dL (74-99); Non-African American GFR(MDRD) 60 (>60 ml/min/1.73 sqM); Potassium 4.2 mmol/L (3.5-5.1); Sodium 145 mmol/L (137-145); Total Bilirubin 0.6 mg/dL (0.2-1.3); Total Protein 6.1 g/dL (6.3-8.2)
[2017-07-26] MEDS ORDERED: ceFAZolin 1,000 MG in DEXTROSE/WATER 1 50ML.BAG IVPB ONE (07:00)
[2017-07-26] MEDS: ENOXAPARIN 60 MG/0.6 ML SYRINGE SQ SCH ×2 (07:01→21:22)
[2017-07-26] MEDS: ASPIRIN 300 MG SUPP RECTAL SCH (07:01)
[2017-07-26] MEDS ORDERED: LIDOCAINE 1% INJ 10MG/ML (20 ML MDV) ONE (09:48)
[2017-07-26] MEDS ORDERED: PROPOFOL 10 MG/ML 20 ML VIAL IV ONE (09:48)
[2017-07-26] MEDS ORDERED: IV FLUID CONTINUATION 250 ML IV ONE (10:13)
--- NOTE | 2017-07-26 10:13 | P.PCN ---
Date of Procedure: 07/26/17 Procedure(s) Performed: Brief history: Patient is a 76-year-old -[place] female, scheduled for an EGD with PEG tube placement today. she was admitted hospital with altered mental status and prior history of stroke. She did have a modified barium swallow done which showed evidence of aspiration and penetration and hence she is scheduled for an upper endoscopy with a PEG tube placed Procedure performed: EGD with PEG tube placement Preoperative diagnosis: oropharyngeal dysphagia with aspiration IV sedation by anesthesia Procedure: After informed consent was obtained with the patient as well as the family the patient was brought into the endoscopy unit. IV conscious sedation was administered by anesthesia under continuous monitoring. The Olympus GF 160 video endoscope was inserted into the mouth and esophagus intubated without any difficulty and was gradually advanced to the stomach and duodenum. The bulb and second part of the duodenum was visualized which appeared normal. The scope at this time was withdrawn to the stomach adequately insufflated with air. Adequate transillumination was achieved onto the anterior abdominal wall. At the site of adequate transillumination and maximal finger indentation, on the anterior abdominal wall, this area was sterilely prepped and draped. One percent Xylocaine was infiltrated into the skin and a small incision was made. Trocar and cannula was passed through the incision into the stomach cavity. The trocar was removed. Guidewire was passed through the cannula into the stomach cavity which was held by the snare that was passed through the scope. The guidewire along with the scope was gently withdrawn from the stomach esophagus out of the mouth. A 20-[employer] PEG tube was passed over the guidewire and was gently advanced into the mouth and esophagus and stomach. With gentle traction the guidewire along with the PEG tube was pulled from the anterior abdominal wall until the internal bumper appeared to be in secure position. Repeat EGD was performed and the esophagus intubated without any difficulty and was advanced into the stomach. The internal bumper appeared to be in secure position. The visualized portions of the antrum body cardia and fundus of the stomach appeared normal. The esophagus was carefully examined as the scope was gradually being withdrawn which appeared normal. At this time external bumper was placed on the PEG tube closer to the anterior abdominal wall at 3 cm [place]. The patient tolerated the procedure well. Impression: Successful 20-[employer] PEG tube placement as described above. mild antral gastritis. Recommendations: Findings of this examination were discussed with the patient's family. The patient will be started on tube feeds tomorrow. Post-PEG tube orders were written.
--- NOTE | 2017-07-26 11:34 | P.PN ---
Subjective This is a 76-year-old -[place]is[place] female, a patient of Dr. Ca. 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 Patient also has a history of diabetes mellitus, hyperlipidemia , dementia, colon cancer, hypertension, COPD, former smoker and previous DVT of the lower extremity. Patient is a poor historian. She is brought in to [facility] for being more confused and worsening weakness on her right side. She was admitted to the sixth floor. Computed tomography scan completed in the emergency room showed generalized atrophy and small vessel ischemic change. No acute changes. Carotid Doppler and echo and EEG have been ordered. Urinalysis was negative drug screen was negative. She did have a mild elevation in her troponin. Cardiology has been consulted. She has Coumadin listed as her home medication. Patient is not sure why she is on this medication. Unclear if she was still on the Coumadin for her previous DVT. Her INR was 1. Patient reports not taking meds at home. Patient is refusing aspirin and Lovenox this morning. She lives with her and son. And uses a walker sometimes to ambulate. She denies any chest pain, shortness of breath, nausea or vomiting. Denies any bowel movement changes or urinary symptoms. Telemetry has not shown a normal sinus rhythm. Chest x-ray shows no acute process there is a nodular prominence in the right hilum. Ectasia of the aorta with marked prominence of the right hilum. CT of the chest is recommended to assess for mass adenopathy or possible aneurysm. Patient also failed a bedside swallow eval. Speech therapy has been consulted for further swallow evaluation. Patient currently nothing by mouth. She is asking for coffee. 07/24/2017 patient sleeping comfortably. She is arousable. Still having some confusion. The right-sided weakness and slurred speech per neurology is due to her old stroke. Patient failed her modified barium swallow evaluation yesterday. Speech therapy is to reevaluate her again today. Discussed case with dietitian. She is recommending some kind of nutrition support either NG tube or PEG tube if there is no improvement in her swallow. Awaiting speech therapy evaluation for today. On 07/25/2017 patient was seen and examined she is laying comfortably in bed she is answering questions appropriately currently she is nothing by mouth she failed all swallow evaluation at this time gastroenterology consulted in that regard to PEG tube placement however we are still awaiting family for discussion and the signing of the consent for the tube placement On 07/26/2017 patient was seen and examined she is lying in bed, and answering questions. She recently came back from the operating room where she had an EGD and PEG tube placement, she is denying any pain or discomfort at this time, she is asking when she can go home. Objective - Vital Signs Vital signs: Vital Signs Temp 97.8 F 07/26/17 08:00 Pulse 79 07/26/17 08:00 Resp 17 07/26/17 08:00 BP 152/77 07/26/17 08:00 Pulse Ox 95 07/26/17 08:00 Intake & Output 07/25/17 07/26/17 07/26/17 19:59 06:59 18:59 Intake Total 250 Output Total 200 Balance 50 Weight Intake: IV 250 0.9% NS FLUSH 10 Dextrose 10 % in Water 250 ml @ 999 mls/hr IV ONCE STA Rx#:[id number] Sodium Chloride 0.9% 1, 250 000 ml @ 50 mls/hr IV . Q20H STA Rx#:[id number] Intake, IV Titration Amount Sodium Chloride 0.9% 1, 000 ml @ 50 mls/hr IV . Q20H STA Rx#:[id number] Output: Urine 200 Other: Voiding Method # Voids 1 - Exam HEENT head normocephalic and atraumatic there is significant facial drooping on the right Neck is supple no JVD no goiter no lymphadenopathy Chest exam reveals a few scattered crackles no wheezing Cardiac exam reveals regular heart sounds no gallops no murmurs Abdomen is soft nontender no organomegaly Extremity exam reveals no edema no cyanosis or clubbing - Labs CBC & Chem 7: 07/26/17 05:44 07/26/17 05:44 Labs: Abnormal Lab Results - Last 24 Hours (Table) 07/25/17 07/25/17 07/26/17 Range/Units 21:19 21:50 05:44 Carbon Dioxide 31 H (22-30) mmol/L BUN 22 H (7-17) mg/dL POC Glucose (mg/dL) 67 L 128 H (75-99) mg/dL Total Protein 6.1 L (6.3-8.2) g/dL Albumin 3.3 L (3.5-5.0) g/dL Assessment and Plan Plan: 1. Possible TIA with Worsening right-sided weakness, slurred speech and confusion: Patient has prior history of CVA. Computed tomography scan of the brain showed no acute changes. Neurology and cardiology are following. Telemetry is showing a normal sinus rhythm. Patient currently on Lovenox and rectal aspirin. Carotid Doppler was a limited study but showed no significant hemodynamic stenosis. Echo shows an EF of 55-60%. EEG showed no evidence of seizure activity. 2. Prior history of CVA with right-sided weakness and slurred speech 3. Failed modified barium swallow evaluation: Patient is currently nothing by mouth. She is to be reevaluated by speech therapy today. Patient had PEG tube placement today 4. Essential hypertension: Blood pressure pills on hold due to her nothing by mouth diet. Continue IV Vasotec as needed 5. Diabetes mellitus type 2: Continue sliding scale coverage 6. Former smoker 7. Dementia 8. History of colon cancer with a possible bowel resection 9. History of Lower extremity DVT patient was on Lovenox which is on hold yesterday and today for PEG tube placement
[2017-07-26 12:14] LABS: Glucose,Whole Blood 86 mg/dL (75-99)
[2017-07-26 17:11] LABS: Glucose,Whole Blood 70 mg/dL (75-99)
[2017-07-26] MEDS ORDERED: DEXTROSE 10 % IN WATER 250 ML IV STA (17:37)
[2017-07-26 21:01] LABS: Glucose,Whole Blood 96 mg/dL (75-99)
[2017-07-27 06:08] LABS: Glucose,Whole Blood 77 mg/dL (75-99)
[2017-07-27] MEDS: INSULIN LISPRO (humaLOG) 300 UNIT/3 ML VIAL SQ SCH ×4 (06:09→20:54)
[2017-07-27 06:11] LABS: Basophils # (A) 0.1 k/uL (0-0.2); Basophils % (A) 1 %; CH 29.6; CHCM 31.4; Eosinophils # (A) 0.3 k/uL (0-0.7); Eosinophils % (A) 4 %; HCT 42.7 % (34.0-46.0); HDW 2.16; HGB 13.4 gm/dL (11.4-16.0); Luc # (Auto) 0.08; Luc % (Auto) 1; Lymphocytes # (A) 1.3 k/uL (1.0-4.8); Lymphocytes % (A) 18 %; MCH 29.7 pg (25.0-35.0); MCHC 31.4 g/dL (31.0-37.0); MCV 94.7 fL (80.0-100.0); Mean Platelet Volume 9.2; Monocytes # (A) 0.5 k/uL (0-1.0); Monocytes % (A) 7 %; Neutrophils # (A) 4.8 k/uL (1.3-7.7); Neutrophils % (A) 69 %; RBC 4.51 m/uL (3.80-5.40); RDW 13.4 % (11.5-15.5); WBC (Perox) 7.24
[2017-07-27 06:28] LABS: ALT 24 U/L (9-52); AST 16 U/L (14-36); Alkaline Phosphatase 74 U/L (38-126); Anion Gap 8 mmol/L; Blood Urea Nitrogen 14 mg/dL (7-17); Calcium 9.7 mg/dL (8.4-10.2); Carbon Dioxide 30 mmol/L (22-30); Chloride 108 mmol/L (98-107); Glucose 80 mg/dL (74-99); Non-African American GFR(MDRD) >60 (>60 ml/min/1.73 sqM); Potassium 3.8 mmol/L (3.5-5.1); Sodium 146 mmol/L (137-145); Total Bilirubin 0.6 mg/dL (0.2-1.3); Total Protein 6.1 g/dL (6.3-8.2)
[2017-07-27 08:57] VITALS: BMI 25.9
[2017-07-27] MEDS: ENOXAPARIN 60 MG/0.6 ML SYRINGE SQ SCH ×2 (09:32→21:18)
[2017-07-27] MEDS: ENALAPRILAT 1.25 MG/ML 1 ML VIAL IVP PRN (09:32)
--- NOTE | 2017-07-27 09:58 | P.PN ---
Subjective Progress Note Date: 07/27/17 This is a 76-year-old -[place] female, a patient of Dr. Ca. 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 Patient also has a history of diabetes mellitus, hyperlipidemia , dementia, colon cancer, hypertension, COPD, former smoker and previous DVT of the lower extremity. Patient is a poor historian. She is brought in to [facility] for being more confused and worsening weakness on her right side. She was admitted to the sixth floor. Computed tomography scan completed in the emergency room showed generalized atrophy and small vessel ischemic change. No acute changes. Carotid Doppler and echo and EEG have been ordered. Urinalysis was negative drug screen was negative. She did have a mild elevation in her troponin. Cardiology has been consulted. She has Coumadin listed as her home medication. Patient is not sure why she is on this medication. Unclear if she was still on the Coumadin for her previous DVT. Her INR was 1. Patient reports not taking meds at home. Patient is refusing aspirin and Lovenox this morning. She lives with her and son. And uses a walker sometimes to ambulate. She denies any chest pain, shortness of breath, nausea or vomiting. Denies any bowel movement changes or urinary symptoms. Telemetry has not shown a normal sinus rhythm. Chest x-ray shows no acute process there is a nodular prominence in the right hilum. Ectasia of the aorta with marked prominence of the right hilum. CT of the chest is recommended to assess for mass adenopathy or possible aneurysm. Patient also failed a bedside swallow eval. Speech therapy has been consulted for further swallow evaluation. Patient currently nothing by mouth. She is asking for coffee. 07/24/2017 patient sleeping comfortably. She is arousable. Still having some confusion. The right-sided weakness and slurred speech per neurology is due to her old stroke. Patient failed her modified barium swallow evaluation yesterday. Speech therapy is to reevaluate her again today. Discussed case with dietitian. She is recommending some kind of nutrition support either NG tube or PEG tube if there is no improvement in her swallow. Awaiting speech therapy evaluation for today. 07/27/2017 patient is status post PEG tube placement yesterday. Tube feedings to be started this morning. Patient seen by dietitian. Patient lying in bed comfortably. Denies any pain. All medications will be restarted through PEG tube. Patient is alert and orientated to 3. Objective - Vital Signs Vital signs: Vital Signs Temp 97.9 F 07/27/17 04:00 Pulse 87 07/27/17 04:00 Resp 16 07/27/17 04:00 BP 161/87 07/27/17 04:00 Pulse Ox 100 07/27/17 04:00 Intake & Output 07/26/17 07/27/17 07/27/17 18:59 06:59 18:59 Intake Total 500 800 Output Total 300 Balance 200 800 Weight 68.5 kg 68.5 kg Intake: IV 500 800 Dextrose 10 % in Water 250 250 ml @ 999 mls/hr IV ONCE STA Rx#:[id number] Sodium Chloride 0.9% 1, 250 800 000 ml @ 50 mls/hr IV . Q20H STA Rx#:[id number] Output: Urine 300 Other: Voiding Method Bedpan Bedpan # Voids 1 1 - Exam Head normocephalic Neck supple Lungs clear to auscultation bilaterally no wheezing or crackles Heart regular rate and rhythm S1-S2, no rub or gallop Abdomen is soft nontender nondistended positive bowel sounds no hepatosplenomegaly . PEG tube in place Extremities no edema Neuro alert and orientated to 3. Right-sided weakness - Labs CBC & Chem 7: 07/27/17 05:21 07/27/17 05:21 Labs: Abnormal Lab Results - Last 24 Hours (Table) 07/26/17 07/27/17 Range/Units 17:05 05:21 Sodium 146 H (137-145) mmol/L Chloride 108 H (98-107) mmol/L POC Glucose (mg/dL) 70 L (75-99) mg/dL Total Protein 6.1 L (6.3-8.2) g/dL Albumin 3.2 L (3.5-5.0) g/dL Assessment and Plan Assessment: 1. Possible TIA with Worsening right-sided weakness, slurred speech and confusion: Patient has prior history of CVA. Computed tomography scan of the brain showed no acute changes. Neurology and cardiology are following. Telemetry is showing a normal sinus rhythm. Patient currently on Lovenox and rectal aspirin. Carotid Doppler was a limited study but showed no significant hemodynamic stenosis. Echo shows an EF of 55-60%. EEG showed no evidence of seizure activity. Change rectal aspirin to oral aspirin. Continue statin 2. Prior history of CVA with right-sided weakness and slurred speech 3. Failed modified barium swallow evaluation: Patient is currently nothing by mouth. She is to be reevaluated by speech therapy today. Status post PEG tube placement. Tube feeding started today 4. Essential hypertension: Resume home blood pressure medications via PEG tube 5. Diabetes mellitus type 2: Continue sliding scale coverage. Continue to hold insulin for now. Blood sugars are now elevated 6. Former smoker 7. Dementia 8. History of colon cancer with a possible bowel resection 9. History of Lower extremity DVT: This is probably why patient was on Coumadin. However appear she is not been taking the Coumadin. INR is only 1. Resume Coumadin today 10. Possible Normal pressure hydrocephalus noted on MRI of the brain. Neurology will complete further workup outpatient 11. PACs and PVCs noted on telemetry. Resume patient's metoprolol. Continue to monitor DVT prophylaxis Lovenox Anticipate discharge possibly tomorrow, will await further physical therapy evaluation I performed an examination of the patient and discussed their management with the physician Orchard Manager. I have reviewed the Physician Orchard Manager's notes and agree with the documented findings and plan of care
[2017-07-27] MEDS ORDERED: WARFARIN 10 MG TAB PO SCH ×2 (10:00→18:00)
[2017-07-27] MEDS: METOPROLOL TARTRATE 50 MG TAB PO SCH ×2 (11:48→20:40)
[2017-07-27] MEDS: amLODIPine 10 MG TAB PO SCH (11:48)
[2017-07-27] MEDS: HYDROCHLOROTHIAZIDE 25 MG TAB PO SCH (11:48)
[2017-07-27] MEDS: ASPIRIN 325 MG TAB PO SCH (11:48)
[2017-07-27 11:53] LABS: Glucose,Whole Blood 77 mg/dL (75-99)
[2017-07-27 16:47] LABS: Glucose,Whole Blood 99 mg/dL (75-99)
[2017-07-27] MEDS: ASPIRIN 300 MG SUPP RECTAL SCH (20:37)
[2017-07-27 20:53] LABS: Glucose,Whole Blood 86 mg/dL (75-99)
[2017-07-27] MEDS ORDERED: cloNIDine HCL 0.1 MG TAB PO SCH (21:00)
[2017-07-28 04:59] VITALS: RESP 18
[2017-07-28 06:06] LABS: Glucose,Whole Blood 108 mg/dL (75-99)
[2017-07-28] MEDS: INSULIN LISPRO (humaLOG) 300 UNIT/3 ML VIAL SQ SCH ×2 (06:15→12:04)
[2017-07-28 06:23] LABS: Basophils % (A) 1 %; CH 30.4; CHCM 31.7; Eosinophils # (A) 0.3 k/uL (0-0.7); Eosinophils % (A) 4 %; HCT 41.9 % (34.0-46.0); HDW 2.37; HGB 13.1 gm/dL (11.4-16.0); Luc # (Auto) 0.07; Luc % (Auto) 1; Lymphocytes # (A) 1.5 k/uL (1.0-4.8); Lymphocytes % (A) 22 %; MCH 30.1 pg (25.0-35.0); MCHC 31.3 g/dL (31.0-37.0); MCV 96.1 fL (80.0-100.0); Mean Platelet Volume 9.2; Monocytes # (A) 0.3 k/uL (0-1.0); Monocytes % (A) 4 %; Neutrophils # (A) 4.6 k/uL (1.3-7.7); Neutrophils % (A) 68 %; RBC 4.37 m/uL (3.80-5.40); RDW 12.3 % (11.5-15.5); WBC 6.7 k/uL (3.8-10.6); WBC (Perox) 6.76
[2017-07-28 06:32] LABS: INR 1.1 (<1.2); Prothrombin Time 10.7 sec (9.0-12.0)
[2017-07-28 06:52] LABS: ALT 17 U/L (9-52); AST 16 U/L (14-36); Alkaline Phosphatase 69 U/L (38-126); Anion Gap 5 mmol/L; Blood Urea Nitrogen 20 mg/dL (7-17); Calcium 9.8 mg/dL (8.4-10.2); Carbon Dioxide 32 mmol/L (22-30); Chloride 105 mmol/L (98-107); Glucose 101 mg/dL (74-99); Non-African American GFR(MDRD) >60 (>60 ml/min/1.73 sqM); Potassium 3.9 mmol/L (3.5-5.1); Sodium 142 mmol/L (137-145); Total Bilirubin 0.4 mg/dL (0.2-1.3); Total Protein 5.8 g/dL (6.3-8.2)
[2017-07-28] MEDS: amLODIPine 10 MG TAB PO SCH (07:52)
[2017-07-28] MEDS: ENOXAPARIN 60 MG/0.6 ML SYRINGE SQ SCH (07:52)
[2017-07-28] MEDS: METOPROLOL TARTRATE 50 MG TAB PO SCH (07:53)
[2017-07-28] MEDS: HYDROCHLOROTHIAZIDE 25 MG TAB PO SCH (07:53)
[2017-07-28] MEDS: ASPIRIN 325 MG TAB PO SCH (07:54)
[2017-07-28] MEDS ORDERED: DOCUSATE 100 MG CAP PO SCH (09:00)
[2017-07-28] MEDS ORDERED: FERROUS SULFATE 325 MG TAB PO SCH (09:00)
[2017-07-28] MEDS ORDERED: CHOLECALCIFEROL 1,000 UNIT TAB PO SCH (09:00)
[2017-07-28] MEDS ORDERED: PRAVASTATIN SODIUM 20 MG TAB PO SCH (09:00)
[2017-07-28] MEDS ORDERED: POTASSIUM CHLORIDE ER 10 MEQ TAB.ER.PRT PO SCH (09:00)
[2017-07-28] MEDS ORDERED: FOLIC ACID 1 MG TAB PO SCH (09:00)
[2017-07-28] MEDS ORDERED: LISINOPRIL 10 MG TAB PO SCH (09:00)
[2017-07-28] MEDS ORDERED: RIVAROXABAN 10 MG TAB PO SCH ×2 (11:30→17:30)
--- NOTE | 2017-07-28 11:57 | P.DS ---
Providers Date of admission: 07/22/17 12:43 Expected date of discharge: 07/28/17 Attending physician: Yvonne Dominguez Consults: 07/22/17 12:40 Consult Physician Urgent Consulting Provider: Sloan Bolton Consult Reason/Comments: Altered mental status Do you want consulting provider notified?: Yes 07/22/17 14:47 Consult Physician Routine Consulting Provider: Rob Bahena Consult Reason/Comments: CVA/TIA Do you want consulting provider notified?: Yes Primary care physician: [facility] Course: Discharge diagnosis 1. Possible TIA with Worsening right-sided weakness, slurred speech and confusion: Patient has prior history of CVA. Computed tomography scan of the brain showed no acute changes. MRI of the brain showed no acute cranial abnormality. Cannot exclude some degree of normal pressure hydrocephalus. Atrophic change. Periventricular white matter changes most consistent with a combination of small vessel disease and chronic ischemic change. Telemetry is showing a normal sinus rhythm With occasional PACs and PVCs. Carotid Doppler was a limited study but showed no significant hemodynamic stenosis. Echo shows an EF of 55-60%. EEG showed no evidence of seizure activity. Aspirin 325 mg daily. Continue statin 2. Prior history of CVA with right-sided weakness and slurred speech 3. Failed modified barium swallow evaluation: Patient is currently nothing by mouth. She is to be reevaluated by speech therapy today. Status post PEG tube placement. Tube feeding started today. She is at 30 ml/ hour of the Glucerna tube feedings today. See dietitian recommendations on titrating to goal rate of 55 mL/hour 4. Essential hypertension: Resume home blood pressure medications via PEG tube 5. Diabetes mellitus type 2: Continue sliding scale coverage. Continue to hold insulin for now. Blood sugars are now elevated 6. Former smoker 7. Dementia 8. History of colon cancer with a possible bowel resection 9. History of Lower extremity DVT: This is probably why patient was on Coumadin. However appear she is not been taking the Coumadin. INR is only 1. Patient will be switched over to Xarelto 10 mg daily since will be difficult to titrate the Coumadin dosing since he'll be given via PEG tube. Xarelto has been approved by her insurance company. Start Xarelto 10 mg tonight 10. Possible Normal pressure hydrocephalus noted on MRI of the brain. Neurology will complete further workup outpatient 11. PACs and PVCs and episode of nonsustained ventricle tachycardia noted on telemetry. Currently in sinus rhythm with an occasional PAC now that the metoprolol 100 mg twice a day has been restarted Hospital course This is a 76-year-old -[place] female, a patient of Dr. Ca. 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 Patient also has a history of diabetes mellitus, hyperlipidemia , dementia, colon cancer, hypertension, COPD, former smoker and previous DVT of the lower extremity. Patient is a poor historian. She is brought in to [facility] for being more confused and worsening weakness on her right side. She was admitted to the sixth floor. Computed tomography scan completed in the emergency room showed generalized atrophy and small vessel ischemic change. No acute changes. Carotid Doppler and echo and EEG have been ordered. Urinalysis was negative drug screen was negative. She did have a mild elevation in her troponin. Cardiology has been consulted. She has Coumadin listed as her home medication. Patient is not sure why she is on this medication. Unclear if she was still on the Coumadin for her previous DVT. Her INR was 1. Patient reports not taking meds at home. Patient is refusing aspirin and Lovenox this morning. She lives with her and son. And uses a walker sometimes to ambulate. She denies any chest pain, shortness of breath, nausea or vomiting. Denies any bowel movement changes or urinary symptoms. Telemetry has not shown a normal sinus rhythm. Chest x-ray shows no acute process there is a nodular prominence in the right hilum. Ectasia of the aorta with marked prominence of the right hilum. CT of the chest is recommended to assess for mass adenopathy or possible aneurysm. Patient also failed a bedside swallow eval. Speech therapy has been consulted for further swallow evaluation. Patient currently nothing by mouth. She is asking for coffee. Patient was followed closely by neurology. It is felt likely patient's worsening right-sided weakness and confusion was related to a TIA. No evidence of new stroke on computed tomography scan of the brain or MRI of the brain. Patient will continue on a full aspirin daily. Also continue statin. Patient will follow-up with neurology for further outpatient workup in regards to the possible normal pressure hydrocephalus noted on MRI of the brain. Patient has a known history of lower extremity DVT. Supposedly had been on Coumadin outpatient. However on admission INR was subtherapeutic at 1. It appears patient was not taking the Coumadin regularly. During this admission she has been switched over to Xarelto. The Xarelto will be started this evening at the retirement. She'll continue Xarelto 10 mg daily. Patient failed her swallow evaluation. GI service was consulted for PEG tube placement. Patient has currently been tolerating the tube feedings. Tube feedings are being titrated up. She is currently at 30 mL per hour of the Glucerna, the goal rate is 55 mL per hour. Also note the patient is a diabetic and has not required her insulin doing this admission. Blood sugars have been well controlled. Ranging from 80s to low 100s. She's not even require the insulin sliding scale. At this time would recommend monitoring blood sugars closely at the retirement and covering with the Humalog sliding scale please refer to sliding scale chart. We 'll further adjust patient's insulin as needed at the retirement. Patient is medically stable for discharge. Please refer to chart for any further details I performed an examination of the patient and discussed their management with the physician Tufting Supervisor. I have reviewed the Physician Tufting Supervisor's notes and agree with the documented findings and plan of care Patient Condition at Discharge: Stable Plan - Discharge Summary New Discharge Prescriptions: New Aspirin 325 mg PO DAILY tab INSULIN LISPRO (humaLOG) [humaLOG (formulary)] 0 unit SQ ACHS vial Rivaroxaban [Xarelto] 10 mg PO DAILY tab Continue cloNIDine HCL [Catapres] 0.1 mg PO HS amLODIPine [Norvasc] 10 mg PO DAILY Ferrous Sulfate [Feosol] 325 mg PO DAILY Furosemide [Lasix] 20 - 40 mg PO DAILY PRN PRN Reason: Edema Cholecalciferol [Vitamin D3] 2,000 unit PO DAILY Pravastatin Sodium [Pravachol] 10 mg PO DAILY Potassium Chloride [K-Tab ER] 10 meq PO DAILY Docusate [Colace] 100 mg PO DAILY Hydrochlorothiazide [Hydrodiuril] 25 mg PO DAILY Lisinopril [Zestril] 10 mg PO DAILY Folic Acid 1 mg PO DAILY Metoprolol Tartrate [Lopressor] 100 mg PO BID Discontinued metFORMIN HCL [Glucophage] 1,000 mg PO BID Insulin NPL/Insulin Lispro [humaLOG MIX 75-25 VIAL] 5 units SQ BID Insulin Glargine [Lantus] 60 units SQ HS Warfarin [Coumadin] 10 mg PO Q48H Aspirin EC [Ecotrin Low Dose] 81 mg PO DAILY #30 tablet. Benzonatate [Eric Sanders] 100 mg PO AC-SUPPER PRN PRN Reason: Cough amLODIPine [Norvasc] 10 mg PO DAILY Discharge Medication List Ferrous Sulfate [Feosol] 325 mg PO DAILY 01/24/16 [History] amLODIPine [Norvasc] 10 mg PO DAILY 01/24/16 [History] cloNIDine HCL [Catapres] 0.1 mg PO HS 01/24/16 [History] Furosemide [Lasix] 20 - 40 mg PO DAILY PRN 03/31/16 [History] Cholecalciferol [Vitamin D3] 2,000 unit PO DAILY 07/22/17 [History] Docusate [Colace] 100 mg PO DAILY 07/22/17 [History] Folic Acid 1 mg PO DAILY 07/22/17 [History] Hydrochlorothiazide [Hydrodiuril] 25 mg PO DAILY 07/22/17 [History] Lisinopril [Zestril] 10 mg PO DAILY 07/22/17 [History] Metoprolol Tartrate [Lopressor] 100 mg PO BID 07/22/17 [History] Potassium Chloride [K-Tab ER] 10 meq PO DAILY 07/22/17 [History] Pravastatin Sodium [Pravachol] 10 mg PO DAILY 07/22/17 [History] Aspirin 325 mg PO DAILY tab 07/28/17 [Rx] INSULIN LISPRO (humaLOG) [humaLOG (formulary)] 0 unit SQ ACHS vial 07/28/17 [Rx ] Rivaroxaban [Xarelto] 10 mg PO DAILY tab 07/28/17 [Rx] Follow up Appointment(s)/Referral(s): Sloan Bolton MD [STAFF PHYSICIAN] - 1 Week Anh Ca MD [Primary Care Provider] - 1 Week Activity/Diet/Wound Care/Special Instructions: Diet: NPO . Peg tube Feedings per dietitian. Glucerna 1.2 at 55 mL per hour. Start at 30 ml per hour increase by 10 mL per hour starting at 3:30 pm. Increase every 8 hours to goal rate of 55 ml per hour. Free water flush 90 mL every 4 hours. Check residual every 4 hours. Call physician if greater than 50 mL residual Activity: as tolerated ok to Discharge to [facility] Dr. Long to follow at [facility] Discharge Disposition: TRANSFER TO SNF/ECF
[2017-07-28 12:00] LABS: Glucose,Whole Blood 116 mg/dL (75-99)
[2017-07-28 12:50] VITALS: BP 118/56; PULSE 59; TEMP 97.8
== END 2017-07-28 16:13 | DRG 69 ==
LOC: EC 10:52 → 6SEL 12:43
PROVIDERS: ADMIT Internal Medicine; ATTEND Internal Medicine
PROC: 0DH63UZ Insertion of Feeding Device into Stomach, Percutaneous Approach (ICD-10-PCS; principal; 2017-07-22)
PROC: 3E0G76Z Introduction of Nutritional Substance into Upper GI, Via Natural or Artificial Opening (ICD-10-PCS; 2017-07-22)
DX: G45.9 Transient cerebral ischemic attack, unspecified (principal); I69.351 Hemiplegia and hemiparesis following cerebral infarction affecting right dominant side; R13.12 Dysphagia, oropharyngeal phase; G91.2 (Idiopathic) normal pressure hydrocephalus; F03.90 Unspecified dementia, unspecified severity, without behavioral disturbance, psychotic disturbance, mood disturbance, and anxiety; J44.9 Chronic obstructive pulmonary disease, unspecified; R47.81 Slurred speech; E11.9 Type 2 diabetes mellitus without complications; H40.9 Unspecified glaucoma; I10 Essential (primary) hypertension; E78.5 Hyperlipidemia, unspecified; M19.90 Unspecified osteoarthritis, unspecified site; I77.819 Aortic ectasia, unspecified site; I49.3 Ventricular premature depolarization; K29.60 Other gastritis without bleeding; Z91.81 History of falling; Z90.49 Acquired absence of other specified parts of digestive tract; Z87.891 Personal history of nicotine dependence; Z85.028 Personal history of other malignant neoplasm of stomach; Z85.038 Personal history of other malignant neoplasm of large intestine; Z79.01 Long term (current) use of anticoagulants; Z79.82 Long term (current) use of aspirin; Z79.899 Other long term (current) drug therapy; I69.322 Dysarthria following cerebral infarction; Z86.718 Personal history of other venous thrombosis and embolism; Z79.4 Long term (current) use of insulin; Z90.710 Acquired absence of both cervix and uterus; Z98.41 Cataract extraction status, right eye
CPT/HCPCS: 36415; 43246; 70450; 70551; 71020; 71260; 74230; 80053; 80061; 80306; 81003; 82550; 82553; 83090; 84484; 85025; 85610; 85730; 93005; 93306; 93880; 95819; 99285

== ENCOUNTER 2019-02-24 11:06 | Day surgery (SDC) | payer MEDICARE, OTHER ==
[2019-02-23 09:05] VITALS: BMI 28.7
[~2019-02-24 11:06] MED LIST: LACTATED RINGERS 1,000 ML IV SCH; LIDOCAINE 1% 20 ML VIAL (10MG/ML) FOR IV START INTRADERMA PRN
[2019-02-24 11:57] VITALS: TEMP 96.9
[2019-02-24] MEDS ORDERED: LIDOCAINE 1% INJ 10MG/ML (20 ML MDV) ONE (12:24)
[2019-02-24] MEDS ORDERED: GLYCOPYRROLATE 0.2 MG/ML 2 ML VIAL ONE (12:24)
[2019-02-24] MEDS ORDERED: PROPOFOL 10 MG/ML 20 ML VIAL IV ONE (12:24)
[2019-02-24 12:55] VITALS: RESP 16
--- NOTE | 2019-02-24 12:55 | P.PCN ---
Date of Procedure: 02/24/19 Description of Procedure: BRIEF HISTORY: Patient is a 78-year-old, pleasant, female with multiple medical comorbidities who is seen PEG tube replacement. The patient has a prior history of CVA with residual oropharyngeal dysphagia requiring PEG tube 2017. The patient was seen in clinic concern for leaking around the PEG site. The PEG was intact however there was significant where the PEG. The patient is strictly on an nothing by mouth status with all nutrition through the PEG tube. PROCEDURE PERFORMED: Esophagogastroduodenoscopy with PEG tube replacement. PREOPERATIVE DIAGNOSIS: Oropharyngeal dysphagia, history of CVA. ESTIMATED BLOOD LOSS: Minimal. IV sedation per anesthesia. PROCEDURE: After informed consent was obtained, the patient was brought into the endoscopy unit. IV sedation was administered by Anesthesia under continuous monitoring. Using gentle traction the patient's old PEG tube was pulled from her stomach. A Ponsky non-balloon replacement gastrostomy tube was then removed from its package. The obturator was used to deform replacement tube for insertion through the stoma, and into the stomach. Once the internal dome of the replacement tube was in the stomach the obturator was carefully withdrawn. The replacement tube was then pulled gently until the internal dome was against the gastric mucosa and the external bolster was used to tighten. The Olympus GIF- 190 video endoscope was inserted into the mouth. Esophagus intubated without any difficulty. It was gradually advanced into the stomach and duodenum and carefully examined. The bulb and the second part of the duodenum appeared normal. The scope at this time was withdrawn to the stomach, adequately insufflated with air, and upon careful examination, mucosa of the antrum, body, cardia and the fundus appeared normal, with the internal bumper of the replacement PEG tube and adequate position in the body of the stomach. The scope was then withdrawn into the esophagus. The GE junction was located at 38 cm from the incisors. The esophagus appeared normal. There were no erosions or ulcerations seen and the patient tolerated the procedure well. IMPRESSION: 1. Replacement of old PEG tube with a Ponsky non-balloon replacement gastrostomy tube. 2. Normal EGD with confirmation of PEG tube in the body of the stomach. RECOMMENDATIONS: The findings of this examination were discussed with the patient and her . Okay to resume meds through the tight tube and feeds tonight at 6 PM. Continue daily PEG tube site care. Would hold anticoagulation therapy for an additional 48 hours.
[2019-02-24 13:31] VITALS: BP 148/86; PULSE 73
[2019-02-24 13:44] LABS: Glucose,Whole Blood 143 mg/dL (75-99)
== END 2019-02-24 13:55 ==
LOC: ORWHC2ENDO 11:06
PROVIDERS: ATTEND Internal Medicine
DX: I69.391 Dysphagia following cerebral infarction (principal); R13.12 Dysphagia, oropharyngeal phase; I69.322 Dysarthria following cerebral infarction; I69.359 Hemiplegia and hemiparesis following cerebral infarction affecting unspecified side; I69.320 Aphasia following cerebral infarction; I10 Essential (primary) hypertension; E78.5 Hyperlipidemia, unspecified; I48.91 Unspecified atrial fibrillation; E11.9 Type 2 diabetes mellitus without complications; J44.9 Chronic obstructive pulmonary disease, unspecified; I25.2 Old myocardial infarction; Z87.891 Personal history of nicotine dependence; Z97.2 Presence of dental prosthetic device (complete) (partial); Z79.01 Long term (current) use of anticoagulants; Z79.82 Long term (current) use of aspirin; Z79.891 Long term (current) use of opiate analgesic; Z79.4 Long term (current) use of insulin; Z79.899 Other long term (current) drug therapy; Z90.710 Acquired absence of both cervix and uterus
CPT/HCPCS: 43235; 43762; J2001; J2704

== ENCOUNTER 2019-10-06 07:05 | Day surgery (SDC) | payer MEDICARE, OTHER ==
[2019-10-05 11:19] VITALS: BMI 29.0
[~2019-10-06 07:05] MED LIST changes: -LIDOCAINE 1% 20 ML VIAL (10MG/ML) FOR IV START INTRADERMA PRN
[2019-10-06 07:31] LABS: Glucose,Whole Blood 280 mg/dL (75-99)
[2019-10-06 07:45] VITALS: TEMP 97.8
[2019-10-06] MEDS ORDERED: LIDOCAINE 1% 20 ML VIAL (10MG/ML) FOR IV START INTRADERMA ONE (07:46)
[2019-10-06] MEDS ORDERED: INSULIN ASPART (NovoLOG) 100 UNIT/ML VIAL SQ ONE (07:50)
[2019-10-06] MEDS ORDERED: LIDOCAINE 1% INJ 10MG/ML (20 ML MDV) ONE (08:28)
[2019-10-06] MEDS ORDERED: PROPOFOL 10 MG/ML 20 ML VIAL IV ONE (08:28)
--- NOTE | 2019-10-06 09:07 | P.PCN ---
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 Procedure performed: EGD with PEG tube replacement Preoperative diagnosis: PEG tube replacement, oropharyngeal dysphagia IV sedation by anesthesia Estimated blood loss: Minimal. Procedure: After informed consent was obtained with the patient as well as the family the patient was brought into the endoscopy unit. IV conscious sedation was administered by anesthesia under continuous monitoring. The Olympus GF 190 video endoscope was inserted into the mouth and esophagus intubated without any difficulty and was gradually advanced to the stomach and duodenum. The bulb and second part of the duodenum was visualized which appeared normal. The scope at this time was withdrawn to the stomach adequately insufflated with air. internal bolster from previous PEG tube was noted. At this time the insertion wire was passed through the previous PEG tube and into the stomach. The wire was snared and the endoscope was then withdrawn through the esophagus and out of the mouth. At this time the previous PEG tube was removed percutaneously. The insertion wire was then attached to a 20-[employer] PEG tube. The insertion wire was then pulled with the PEG tube through the incision site. PEG tube was pulled until the internal bolster was sitting snugly against the gastric mucosa which was confirmed with repeat EGD. On repeat EGD the esophagus was intubated without any difficulty and was advanced into the stomach. The internal bumper appeared to be in secure position. The visualized portions of the antrum body cardia and fundus of the stomach appeared normal. The esophagus was carefully examined as the scope was gradually being withdrawn which appeared normal. At this time external bumper was placed on the PEG tube closer to the anterior abdominal wall at 4 cm cam[place]. The patient tolerated the procedure well. Impression: Successful 20[employer] PEG tube replacement as described above, of previous PEG tube. Recommendations: Findings of this examination were discussed with the patient's family. The patient will be started on tube feeds and medications today except for Xarelto which should be resumed tomorrow. Patient can follow up in gastroenterology clinic as needed.
[2019-10-06 09:32] VITALS: BP 145/82; PULSE 106; RESP 22
== END 2019-10-06 10:30 | disposition home health service (06) ==
LOC: ORWHC2ENDO 07:05
PROVIDERS: ATTEND Internal Medicine
DX: K94.20 Gastrostomy complication, unspecified (principal); R13.12 Dysphagia, oropharyngeal phase; I48.91 Unspecified atrial fibrillation; I10 Essential (primary) hypertension; E78.5 Hyperlipidemia, unspecified; J44.9 Chronic obstructive pulmonary disease, unspecified; E11.9 Type 2 diabetes mellitus without complications; F03.90 Unspecified dementia, unspecified severity, without behavioral disturbance, psychotic disturbance, mood disturbance, and anxiety; H40.9 Unspecified glaucoma; Z87.891 Personal history of nicotine dependence; Z79.01 Long term (current) use of anticoagulants; Z79.4 Long term (current) use of insulin; Z79.899 Other long term (current) drug therapy; Z79.82 Long term (current) use of aspirin; Z90.710 Acquired absence of both cervix and uterus; Z96.629 Presence of unspecified artificial elbow joint; Z86.73 Personal history of transient ischemic attack (TIA), and cerebral infarction without residual deficits
CPT/HCPCS: 43246; J2001; J2704; B4087

== ENCOUNTER 2019-11-06 22:18 | Inpatient (IN) | payer MEDICARE, OTHER ==
[2019-11-14 10:30] VITALS: BMI 28.4
[2019-11-15 08:50] VITALS: BP 111/62; PULSE 63; RESP 19; TEMP 98.2
== END 2019-11-15 12:02 | DRG 640 ==
LOC: EC 22:18 → 4SSUR 11-07 01:30
PROVIDERS: ADMIT Internal Medicine; ATTEND Internal Medicine
DX: E87.0 Hyperosmolality and hypernatremia (principal); G93.41 Metabolic encephalopathy; R40.2222 Coma scale, best verbal response, incomprehensible words, at arrival to emergency department; J18.9 Pneumonia, unspecified organism; J96.11 Chronic respiratory failure with hypoxia; N17.9 Acute kidney failure, unspecified; B37.0 Candidal stomatitis; I48.19 Other persistent atrial fibrillation; S22.41XA Multiple fractures of ribs, right side, initial encounter for closed fracture; N39.0 Urinary tract infection, site not specified; J98.11 Atelectasis; J44.0 Chronic obstructive pulmonary disease with (acute) lower respiratory infection; Z43.1 Encounter for attention to gastrostomy; D69.6 Thrombocytopenia, unspecified; N18.3 Chronic kidney disease, stage 3 (moderate); I27.23 Pulmonary hypertension due to lung diseases and hypoxia; F02.80 Dementia in other diseases classified elsewhere, unspecified severity, without behavioral disturbance, psychotic disturbance, mood disturbance, and anxiety; E11.22 Type 2 diabetes mellitus with diabetic chronic kidney disease; G30.9 Alzheimer's disease, unspecified; B96.1 Klebsiella pneumoniae [K. pneumoniae] as the cause of diseases classified elsewhere; E86.0 Dehydration; I12.9 Hypertensive chronic kidney disease with stage 1 through stage 4 chronic kidney disease, or unspecified chronic kidney disease; E11.39 Type 2 diabetes mellitus with other diabetic ophthalmic complication; E78.5 Hyperlipidemia, unspecified; I69.391 Dysphagia following cerebral infarction; I69.328 Other speech and language deficits following cerebral infarction; I69.398 Other sequelae of cerebral infarction; R53.1 Weakness; R40.2352 Coma scale, best motor response, localizes pain, at arrival to emergency department; R40.2132 Coma scale, eyes open, to sound, at arrival to emergency department; R32 Unspecified urinary incontinence; H40.9 Unspecified glaucoma; H42 Glaucoma in diseases classified elsewhere; R00.1 Bradycardia, unspecified; E66.9 Obesity, unspecified; Z68.27 Body mass index [BMI] 27.0-27.9, adult; M19.90 Unspecified osteoarthritis, unspecified site; R79.89 Other specified abnormal findings of blood chemistry; Z99.81 Dependence on supplemental oxygen; Z79.4 Long term (current) use of insulin; Z79.01 Long term (current) use of anticoagulants; Z79.899 Other long term (current) drug therapy; Z71.3 Dietary counseling and surveillance; Z87.891 Personal history of nicotine dependence; Z90.710 Acquired absence of both cervix and uterus
CPT/HCPCS: 36415; 71045; 71046; 80053; 81003; 82550; 82803; 83036; 83605; 83735; 83930; 83935; 84443; 84484; 85025; 85027; 85610; 85730; 87040; 87077; 87086; 87186; 87502; 93005; 96360; 96361; 99285

== ENCOUNTER 2019-12-06 11:09 | Inpatient (IN) | payer MEDICARE, OTHER ==
[2019-12-06] MEDS ORDERED: SODIUM CHLORIDE 0.9% 500 ML 500 ML IV ONE (11:46)
[2019-12-06 11:47] LABS: Glucose,Whole Blood 312 mg/dL (75-99)
--- NOTE | 2019-12-06 12:01 | ED ---
General Adult HPI - General Chief complaint: Altered Mental Status Stated complaint: Altered Mental Status Source: family, EMS, RN notes reviewed, old records reviewed Mode of arrival: EMS Limitations: altered mental status, physical limitation - History of Present Illness Initial comments: This is an 79-year-old female presents emergency Department and is unable to give any history. states that she was [facility] because she has been a lot more tired. Patient states that she has had a stroke in the past with right-sided paralysis. states she has been admitted to the hospital for this in the past. He states she is able to respond room but much more lethargic than normal. He states he knows of no fever that the patient has had he denies her in short of breath or complaining of any pain. He states that she has not been vomiting or having diarrhea as far as he knows. No other history is available this time - Related Data Home Medications Medication Instructions Recorded Confirmed amLODIPine [Norvasc] 10 mg PEG/G-TUBE QAM 01/24/16 12/06/19 Furosemide [Lasix] 20 mg PEG/G-TUBE DAILY 03/31/16 12/06/19 Lisinopril [Zestril] 10 mg PEG/G-TUBE QAM 07/22/17 12/06/19 Pravastatin Sodium [Pravachol] 10 mg PEG/G-TUBE HS 07/22/17 12/06/19 Folic Acid 0.8 mg PEG/G-TUBE HS 02/23/19 12/06/19 Insulin Glargine [Lantus] 18 unit SQ HS 02/23/19 12/06/19 Metoprolol Tartrate [Lopressor] 50 mg PEG/G-TUBE BID 02/23/19 12/06/19 Cholecalciferol (Vitamin D3) 2,000 unit PEG/G-TUBE DAILY 10/05/19 12/06/19 [Vitamin D3] Ferrous Sulfate [Iron (65 MG 325 mg PEG/G-TUBE HS 10/05/19 12/06/19 Elemental)] Hydrochlorothiazide [Hydrodiuril] 25 mg PEG/G-TUBE DAILY 10/05/19 12/06/19 cloNIDine HCL [Catapres] 0.1 mg PEG/G-TUBE HS 10/05/19 12/06/19 glipiZIDE [Glucotrol] 5 mg PEG/G-TUBE DAILY 10/05/19 12/06/19 Rivaroxaban [Xarelto] 10 mg PEG/G-TUBE HS 10/06/19 12/06/19 INSULIN LISPRO (humaLOG) [humaLOG] 2 units SQ AC-TID 11/07/19 12/06/19 Potassium Chloride Oral Liquid 10 meq PEG/G-TUBE DAILY 11/07/19 12/06/19 Allergies Allergy/AdvReac Type Severity Reaction Status Date / Time No Known Allergies Allergy Verified 12/06/19 11:15 Review of Systems ROS Statement: Those systems with pertinent positive or pertinent negative responses have been documented in the HPI. ROS Other: All systems not noted in ROS Statement are negative. 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 History of Any Multi-Drug Resistant Organisms: None Reported Past Surgical History: Hysterectomy Additional Past Surgical History / Comment(s): not known at ECF,peg insertion Past Anesthesia/Blood Transfusion Reactions: No Reported Reaction, Unable to Obtain Additional Past Anesthesia/Blood Transfusion Reaction / Comment(s): spouse thinks no problems that he knows of(poor historian), no info at ECF Past Psychological History: No Psychological Hx Reported Smoking Status: Former smoker Past Alcohol Use History: None Reported Past Drug Use History: None Reported - Past Family History Mother Family Medical History: Unable to Obtain Additional Family Medical History / Comment(s): no info at ECF Father History Unknown: Yes General Exam - General Exam Comments Initial Comments: GENERAL: Patient is well-developed and well-nourished. Patient is nontoxic and well-hydrated and is in no acute distress. The patient is very sleepy and difficult to arouse but she does follow very simple commands. ENT: Neck is soft and supple. No significant lymphadenopathy is noted. Oropharynx is clear. Moist mucous membranes. Neck has full range of motion without eliciting any pain. EYES: The sclera were anicteric and conjunctiva were pink and moist. Extraocular movements were intact and pupils were equal round and reactive to light. Eyelids were unremarkable. PULMONARY: Unlabored respirations. Good breath sounds bilaterally. No audible rales rhonchi or wheezing was noted. CARDIOVASCULAR: There is a regular rate and rhythm without any murmurs gallops or rubs. ABDOMEN: Soft and nontender with normal bowel sounds. SKIN: Skin is clear with no lesions or rashes and otherwise unremarkable. NEUROLOGIC: Patient is awake but cannot assess orientation because she does not bowie verbally to me states she normally does not say too much even at her baseline. Unable to assess strength because she's not following my commands. states he does not notice anything different as far as facial droop speech and she is still moving her right side slightly which she states is baseline MUSCULOSKELETAL: Normal extremities with adequate strength and full range of motion. LYMPHATICS: No significant lymphadenopathy is noted PSYCHIATRIC: Normal psychiatric evaluation. Limitations: altered mental status, physical limitation Course Vital Signs 12/06/19 12/06/19 12/06/19 11:11 11:57 12:27 Temperature 98.4 F Pulse Rate 63 59 L 62 Respiratory 20 16 18 Rate Blood Pressure 106/68 105/64 109/70 O2 Sat by Pulse 91 L 98 Oximetry Medical Decision Making - Medical Decision Making EKG shows normal sinus rhythm 63 bpm NC interval is 166 dresses 86 QT interval 408 QTC is 417. Patient's EKG shows no ST segment elevation or depression. Patient was dehydrated I gave her 2 L of fluid. I spoke with Dr. Dominguez he agreed to admit the patient admitted patient wrote admitting orders. - Lab Data Result diagrams: 12/06/19 11:25 12/06/19 11:25 Lab Results 12/06/19 12/06/19 12/06/19 Range/Units 11:25 11:25 11:25 WBC 7.6 (3.8-10.6) k/uL RBC 5.60 H (3.80-5.40) m/uL Hgb 17.3 H (11.4-16.0) gm/dL Hct 55.2 H (34.0-46.0) % MCV 98.5 (80.0-100.0) fL MCH 30.8 (25.0-35.0) pg MCHC 31.3 (31.0-37.0) g/dL RDW 13.3 (11.5-15.5) % Plt Count 92 L (150-450) k/uL Neutrophils % 67 % Lymphocytes % 20 % Monocytes % 6 % Eosinophils % 4 % Basophils % 1 % Neutrophils # 5.1 (1.3-7.7) k/uL Lymphocytes # 1.5 (1.0-4.8) k/uL Monocytes # 0.4 (0-1.0) k/uL Eosinophils # 0.3 (0-0.7) k/uL Basophils # 0.1 (0-0.2) k/uL Manual Slide Review Performed Poikilocytosis (manual Present Anisocytosis (manual) Present PT 10.3 (9.0-12.0) sec INR 1.0 (<1.2) APTT 22.0 (22.0-30.0) sec Sodium 152 H (137-145) mmol/L Potassium 3.7 (3.5-5.1) mmol/L Chloride 112 H (98-107) mmol/L Carbon Dioxide 35 H (22-30) mmol/L Anion Gap 5 mmol/L BUN 86 H (7-17) mg/dL Creatinine 1.29 H (0.52-1.04) mg/dL Est GFR (CKD-EPI)AfAm 45 (>60 ml/min/1.73 sqM) Est GFR (CKD-EPI)NonAf 39 (>60 ml/min/1.73 sqM) Glucose 359 H (74-99) mg/dL POC Glucose (mg/dL) (75-99) mg/dL POC Glu Medical Underwriter ID Calcium 11.3 H (8.4-10.2) mg/dL Total Bilirubin 0.3 (0.2-1.3) mg/dL AST 49 H (14-36) U/L ALT 112 H (4-34) U/L Alkaline Phosphatase 104 (38-126) U/L Troponin I (0.000-0.034) ng/mL Total Protein 6.5 (6.3-8.2) g/dL Albumin 3.1 L (3.5-5.0) g/dL Urine Color Urine Appearance (Clear) Urine pH (5.0-8.0) Ur Specific [place] (1.001-1.035) Urine Protein (Negative) Urine Glucose (UA) (Negative) Urine Ketones (Negative) Urine Blood (Negative) Urine Nitrite (Negative) Urine Bilirubin (Negative) Urine Urobilinogen (<2.0) mg/dL Ur Leukocyte Esterase (Negative) Urine Opiates Screen (NotDetected) Ur Oxycodone Screen (NotDetected) Urine Methadone Screen (NotDetected) Ur Propoxyphene Screen (NotDetected) Ur Barbiturates Screen (NotDetected) U Tricyclic Antidepress (NotDetected) Ur Phencyclidine Scrn (NotDetected) Ur Amphetamines Screen (NotDetected) U Methamphetamines Scrn (NotDetected) U Benzodiazepines Scrn (NotDetected) Urine Cocaine Screen (NotDetected) U Marijuana (THC) Screen (NotDetected) 12/06/19 12/06/19 12/06/19 Range/Units 11:25 11:46 12:25 WBC (3.8-10.6) k/uL RBC (3.80-5.40) m/uL Hgb (11.4-16.0) gm/dL Hct (34.0-46.0) % MCV (80.0-100.0) fL MCH (25.0-35.0) pg MCHC (31.0-37.0) g/dL RDW (11.5-15.5) % Plt Count (150-450) k/uL Neutrophils % % Lymphocytes % % Monocytes % % Eosinophils % % Basophils % % Neutrophils # (1.3-7.7) k/uL Lymphocytes # (1.0-4.8) k/uL Monocytes # (0-1.0) k/uL Eosinophils # (0-0.7) k/uL Basophils # (0-0.2) k/uL Manual Slide Review Poikilocytosis (manual Anisocytosis (manual) PT (9.0-12.0) sec INR (<1.2) APTT (22.0-30.0) sec Sodium (137-145) mmol/L Potassium (3.5-5.1) mmol/L Chloride (98-107) mmol/L Carbon Dioxide (22-30) mmol/L Anion Gap mmol/L BUN (7-17) mg/dL Creatinine (0.52-1.04) mg/dL Est GFR (CKD-EPI)AfAm (>60 ml/min/1.73 sqM) Est GFR (CKD-EPI)NonAf (>60 ml/min/1.73 sqM) Glucose (74-99) mg/dL POC Glucose (mg/dL) 312 H (75-99) mg/dL POC Glu Medical Underwriter ID Suyapa Escobedo Calcium (8.4-10.2) mg/dL Total Bilirubin (0.2-1.3) mg/dL AST (14-36) U/L ALT (4-34) U/L Alkaline Phosphatase (38-126) U/L Troponin I 0.082 H* (0.000-0.034) ng/mL Total Protein (6.3-8.2) g/dL Albumin (3.5-5.0) g/dL Urine Color Urine Appearance (Clear) Urine pH (5.0-8.0) Ur Specific [place] (1.001-1.035) Urine Protein (Negative) Urine Glucose (UA) (Negative) Urine Ketones (Negative) Urine Blood (Negative) Urine Nitrite (Negative) Urine Bilirubin (Negative) Urine Urobilinogen (<2.0) mg/dL Ur Leukocyte Esterase (Negative) Urine Opiates Screen Not Detected (NotDetected) Ur Oxycodone Screen Not Detected (NotDetected) Urine Methadone Screen Not Detected (NotDetected) Ur Propoxyphene Screen Not Detected (NotDetected) Ur Barbiturates Screen Not Detected (NotDetected) U Tricyclic Antidepress Not Detected (NotDetected) Ur Phencyclidine Scrn Not Detected (NotDetected) Ur Amphetamines Screen Not Detected (NotDetected) U Methamphetamines Scrn Not Detected (NotDetected) U Benzodiazepines Scrn Not Detected (NotDetected) Urine Cocaine Screen Not Detected (NotDetected) U Marijuana (THC) Screen Not Detected (NotDetected) 12/06/19 Range/Units 12:25 WBC (3.8-10.6) k/uL RBC (3.80-5.40) m/uL Hgb (11.4-16.0) gm/dL Hct (34.0-46.0) % MCV (80.0-100.0) fL MCH (25.0-35.0) pg MCHC (31.0-37.0) g/dL RDW (11.5-15.5) % Plt Count (150-450) k/uL Neutrophils % % Lymphocytes % % Monocytes % % Eosinophils % % Basophils % % Neutrophils # (1.3-7.7) k/uL Lymphocytes # (1.0-4.8) k/uL Monocytes # (0-1.0) k/uL Eosinophils # (0-0.7) k/uL Basophils # (0-0.2) k/uL Manual Slide Review Poikilocytosis (manual Anisocytosis (manual) PT (9.0-12.0) sec INR (<1.2) APTT (22.0-30.0) sec Sodium (137-145) mmol/L Potassium (3.5-5.1) mmol/L Chloride (98-107) mmol/L Carbon Dioxide (22-30) mmol/L Anion Gap mmol/L BUN (7-17) mg/dL Creatinine (0.52-1.04) mg/dL Est GFR (CKD-EPI)AfAm (>60 ml/min/1.73 sqM) Est GFR (CKD-EPI)NonAf (>60 ml/min/1.73 sqM) Glucose (74-99) mg/dL POC Glucose (mg/dL) (75-99) mg/dL POC Glu Medical Underwriter ID Calcium (8.4-10.2) mg/dL Total Bilirubin (0.2-1.3) mg/dL AST (14-36) U/L ALT (4-34) U/L Alkaline Phosphatase (38-126) U/L Troponin I (0.000-0.034) ng/mL Total Protein (6.3-8.2) g/dL Albumin (3.5-5.0) g/dL Urine Color Yellow Urine Appearance Clear (Clear) Urine pH 7.0 (5.0-8.0) Ur Specific [place] 1.013 (1.001-1.035) Urine Protein Negative (Negative) Urine Glucose (UA) Negative (Negative) Urine Ketones Negative (Negative) Urine Blood Negative (Negative) Urine Nitrite Negative (Negative) Urine Bilirubin Negative (Negative) Urine Urobilinogen <2.0 (<2.0) mg/dL Ur Leukocyte Esterase Negative (Negative) Urine Opiates Screen (NotDetected) Ur Oxycodone Screen (NotDetected) Urine Methadone Screen (NotDetected) Ur Propoxyphene Screen (NotDetected) Ur Barbiturates Screen (NotDetected) U Tricyclic Antidepress (NotDetected) Ur Phencyclidine Scrn (NotDetected) Ur Amphetamines Screen (NotDetected) U Methamphetamines Scrn (NotDetected) U Benzodiazepines Scrn (NotDetected) Urine Cocaine Screen (NotDetected) U Marijuana (THC) Screen (NotDetected) Disposition Clinical Impression: Dehydration, Elevated troponin, Renal insufficiency Disposition: ADMITTED IP TO THIS HOSP Referrals: Yvonne Dominguez MD [Primary Care Provider] - 1-2 days Time of Disposition: 13:55
[2019-12-06 12:06] LABS: Albumin 3.1 g/dL (3.5-5.0); Calcium 11.3 mg/dL (8.4-10.2); Potassium 3.7 mmol/L (3.5-5.1); Total Bilirubin 0.3 mg/dL (0.2-1.3); Total Protein 6.5 g/dL (6.3-8.2)
[2019-12-06 12:07] LABS: Prothrombin Time 10.3 sec (9.0-12.0)
--- NOTE | 2019-12-06 12:16 | XR ---
EXAMINATION TYPE: XR chest 2V DATE OF EXAM: 12/06/2019 COMPARISON: Chest x-ray November 09, 2019. CT chest July 23, 2017 HISTORY: Altered mental status and weakness. TECHNIQUE: Frontal and lateral views of the chest are obtained. FINDINGS: There is is background chronic emphysematous change with more prominent left greater than right bibasilar opacities . The cardiac silhouette size is mildly enlarged with atherosclerotic aort a. The osseous structures are demineralized. Right hilar prominence corresponds to enlarged pulmona ry arteries consistent with underlying pulmonary hypertension. IMPRESSION: Chronic emphysematous change and cardiomegaly with left greater than right bibasilar ate lectasis and/or infiltrates.
[2019-12-06 12:40] LABS: Appearance,Urine Clear (Clear); Bilirubin,Urine Negative (Negative); Blood,Urine Negative (Negative); Color,Urine Yellow; Glucose,Urine (UA) Negative (Negative); Ketones,Urine Negative (Negative); Leukocyte Esterase,Urine Negative (Negative); Nitrite,Urine Negative (Negative); Protein,Urine Negative (Negative); Specific Gravity,Urine 1.013 (1.001-1.035); Urobilinogen,Urine <2.0 mg/dL (<2.0)
[2019-12-06] MEDS ORDERED: SODIUM CHLORIDE 0.9% 2,000 ML IV ONE (12:57)
[2019-12-06 13:03] LABS: Basophils # (A) 0.1 k/uL (0-0.2); Basophils % (A) 1 %; Eosinophils # (A) 0.3 k/uL (0-0.7); Eosinophils % (A) 4 %; HGB 17.3 gm/dL (11.4-16.0); Lymphocytes # (A) 1.5 k/uL (1.0-4.8); Lymphocytes % (A) 20 %; MCH 30.8 pg (25.0-35.0); MCHC 31.3 g/dL (31.0-37.0); MCV 98.5 fL (80.0-100.0); Mean Platelet Volume 12.9; Monocytes # (A) 0.4 k/uL (0-1.0); Monocytes % (A) 6 %; Neutrophils # (A) 5.1 k/uL (1.3-7.7); Neutrophils % (A) 67 %; RDW 13.3 % (11.5-15.5); WBC 7.6 k/uL (3.8-10.6)
[2019-12-06 13:07] LABS: Amphetamine Screen,Urine Not Detected (NotDetected); Barbiturate Screen,Urine Not Detected (NotDetected); Benzodiazepines Screen,Urine Not Detected (NotDetected); Cocaine Screen,Urine Not Detected (NotDetected); Methadone Screen, Urine Not Detected (NotDetected); Opiate Screen,Urine Not Detected (NotDetected); Oxycodone Screen, Urine Not Detected (NotDetected); Phencyclidine Screen,Urine Not Detected (NotDetected); Tricyclic Antidepressant,Urine Not Detected (NotDetected); Urn Cannabinoid Scrn Not Detected (NotDetected)
[2019-12-06 13:11] LABS: HCT 55.2 % (34.0-46.0)
[2019-12-06 13:36] LABS: Anisocytosis (M) Present; Platelet Count 92 k/uL (150-450); Poikilocytosis (M) Present
[2019-12-06] MEDS ORDERED: SODIUM CHLORIDE 0.9% 1,000 ML IV ONE (13:55)
[2019-12-06 17:01] LABS: Glucose,Whole Blood 374 mg/dL (75-99)
[2019-12-06] MEDS ORDERED: INSULIN ASPART (NovoLOG) 100 UNIT/ML VIAL SQ SCH (17:30)
[2019-12-06] MEDS: INSULIN ASPART (NovoLOG) 100 UNIT/ML VIAL SQ SCH (18:39)
[2019-12-06] MEDS: RIVAROXABAN 10 MG TAB PO SCH (20:37)
[2019-12-06] MEDS: PRAVASTATIN SODIUM 20 MG TAB PEG/G-TUBE SCH (20:37)
[2019-12-06] MEDS: cloNIDine HCL 0.1 MG TAB PEG/G-TUBE SCH (20:38)
[2019-12-06] MEDS: FERROUS SULFATE 325 MG TAB PO SCH (20:38)
[2019-12-06] MEDS: METOPROLOL TARTRATE 50 MG TAB PEG/G-TUBE SCH (20:38)
[2019-12-06] MEDS: FOLIC ACID 1 MG TAB PEG/G-TUBE SCH (20:38)
[2019-12-06] MEDS: INSULIN DETEMIR (LEVEMIR) 100 UNIT/ML SYR SQ SCH (20:39)
[2019-12-06 20:47] LABS: Glucose,Whole Blood 290 mg/dL (75-99)
[2019-12-07] MEDS: INSULIN ASPART (NovoLOG) 100 UNIT/ML VIAL SQ SCH ×4 (00:16→19:46)
[2019-12-07 05:47] LABS: Glucose,Whole Blood 74 mg/dL (75-99)
[2019-12-07] MEDS ORDERED: amLODIPine 10 MG TAB PEG/G-TUBE SCH (09:00)
[2019-12-07] MEDS: CHOLECALCIFEROL 1,000 UNIT TAB PEG/G-TUBE SCH (10:38)
[2019-12-07] MEDS: HYDROCHLOROTHIAZIDE 25 MG TAB PEG/G-TUBE SCH (10:41)
[2019-12-07] MEDS: FUROSEMIDE 20 MG TAB PEG/G-TUBE SCH (10:41)
[2019-12-07] MEDS: POTASSIUM CHLORIDE ER 10 MEQ TAB.ER.PRT PO SCH (10:42)
[2019-12-07] MEDS: glipiZIDE 5 MG TAB PEG/G-TUBE SCH (10:42)
[2019-12-07] MEDS: METOPROLOL TARTRATE 50 MG TAB PEG/G-TUBE SCH ×2 (10:42→21:37)
[2019-12-07] MEDS: LISINOPRIL 10 MG TAB PEG/G-TUBE SCH (10:44)
[2019-12-07 11:57] LABS: Glucose,Whole Blood 68 mg/dL (75-99)
[2019-12-07 12:13] LABS: Glucose,Whole Blood 73 mg/dL (75-99)
[2019-12-07 13:47] LABS: Albumin 3.3 g/dL (3.5-5.0); Calcium 11.6 mg/dL (8.4-10.2); Potassium 3.8 mmol/L (3.5-5.1); Total Bilirubin 0.8 mg/dL (0.2-1.3); Total Protein 6.8 g/dL (6.3-8.2)
[2019-12-07 14:18] LABS: Basophils # (A) 0.1 k/uL (0-0.2); Basophils % (A) 1 %; Eosinophils # (A) 0.3 k/uL (0-0.7); Eosinophils % (A) 3 %; HGB 18.1 gm/dL (11.4-16.0); Lymphocytes # (A) 1.8 k/uL (1.0-4.8); Lymphocytes % (A) 21 %; MCH 30.9 pg (25.0-35.0); MCHC 31.2 g/dL (31.0-37.0); Mean Platelet Volume 12.6; Monocytes # (A) 0.4 k/uL (0-1.0); Monocytes % (A) 5 %; Neutrophils # (A) 5.7 k/uL (1.3-7.7); Neutrophils % (A) 68 %; RBC 5.86 m/uL (3.80-5.40); WBC 8.4 k/uL (3.8-10.6)
[2019-12-07 14:26] LABS: Platelet Count 86 k/uL (150-450)
--- NOTE | 2019-12-07 15:12 | P.HPIM ---
History of Present Illness H&P Date: 12/07/19 Chief Complaint: More lethargic at detention This is a 79-year-old female with a known history of CVA with right sided paralysis and dysphagia requiring tube feeding, atrial fibrillation anticoagulated on Xarelto, diabetes mellitus, hyperlipidemia, hypertension and vascular dementia. Patient presented to the emergency room from the detention because she had been more tired lately. Information has been obtained from patient's chart. According to the ER physician he had talked with the . There's been no evidence of any fever, chest pain or shortness of breath. No vomiting or diarrhea reported. Patient's tube feedings were started this morning. She did have evidence of acute kidney 8 injury with dehydration creatinine of 1.29. She did have a slight elevated troponin of 0.082. Chest x- ray showing chronic emphysematous change in cardiomegaly with left greater than right bibasilar atelectasis and or infiltrates. EKG shows normal sinus rhythm. Patient is lying in bed comfortably. She is nonverbal. No evidence of any distress. 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 History of Any Multi-Drug Resistant Organisms: None Reported Past Surgical History: Hysterectomy Additional Past Surgical History / Comment(s): not known at ECF,peg insertion Past Anesthesia/Blood Transfusion Reactions: No Reported Reaction, Unable to Obtain Additional Past Anesthesia/Blood Transfusion Reaction / Comment(s): spouse lena evans no problems that he knows of(poor historian), no info at ECF Past Psychological History: No Psychological Hx Reported Smoking Status: Former smoker Past Alcohol Use History: None Reported Additional Past Alcohol Use History / Comment(s): STARTED SMOKING AT AGE 17,SMOKED LESS THAN 1 PPD, QUIT 2001. Past Drug Use History: None Reported - Past Family History Mother Family Medical History: Unable to Obtain Additional Family Medical History / Comment(s): no info at [facility] Father History Unknown: Yes Medications and Allergies Home Medications Medication Instructions Recorded Confirmed Type amLODIPine [Norvasc] 10 mg PEG/G-TUBE QAM 01/24/16 12/06/19 History Furosemide [Lasix] 20 mg PEG/G-TUBE DAILY 03/31/16 12/06/19 History Lisinopril [Zestril] 10 mg PEG/G-TUBE QAM 07/22/17 12/06/19 History Pravastatin Sodium [Pravachol] 10 mg PEG/G-TUBE HS 07/22/17 12/06/19 History Folic Acid 0.8 mg PEG/G-TUBE HS 02/23/19 12/06/19 History Insulin Glargine [Lantus] 18 unit SQ HS 02/23/19 12/06/19 History Metoprolol Tartrate [Lopressor] 50 mg PEG/G-TUBE BID 02/23/19 12/06/19 History Cholecalciferol (Vitamin D3) 2,000 unit PEG/G-TUBE DAILY 10/05/19 12/06/19 History [Vitamin D3] Ferrous Sulfate [Iron (65 MG 325 mg PEG/G-TUBE HS 10/05/19 12/06/19 History Elemental)] Hydrochlorothiazide [Hydrodiuril] 25 mg PEG/G-TUBE DAILY 10/05/19 12/06/19 History cloNIDine HCL [Catapres] 0.1 mg PEG/G-TUBE HS 10/05/19 12/06/19 History glipiZIDE [Glucotrol] 5 mg PEG/G-TUBE DAILY 10/05/19 12/06/19 History Rivaroxaban [Xarelto] 10 mg PEG/G-TUBE HS 10/06/19 12/06/19 History INSULIN LISPRO (humaLOG) [humaLOG] 2 units SQ AC-TID 11/07/19 12/06/19 History Potassium Chloride Oral Liquid 10 meq PEG/G-TUBE DAILY 11/07/19 12/06/19 History Allergies Allergy/AdvReac Type Severity Reaction Status Date / Time No Known Allergies Allergy Verified 12/06/19 11:15 Physical Exam Vitals: Vital Signs Temp Pulse Pulse Resp BP BP Pulse Ox 12/07/19 12:00 98.0 F 49 L 16 105/56 93 L 12/07/19 08:00 97.7 F 55 L 16 124/61 94 L 12/07/19 03:59 97.8 F 55 L 18 105/53 91 L 12/07/19 00:30 97.7 F 53 L 16 105/50 95 12/06/19 20:08 97.0 F L 64 18 122/70 95 12/06/19 16:00 98.0 F 62 20 128/62 96 12/06/19 14:15 61 18 117/64 100 Intake and Output 12/06/19 12/07/19 12/07/19 22:59 06:59 14:59 Intake Total 120 1225 Output Total 800 275 Balance -680 950 Intake: Intake, IV Titration 1100 Amount Sodium Chloride 0.9% 1, 1100 000 ml @ 100 mls/hr IV . Q10H ONE Rx#:[id number] Other 120 125 Output: Urine 800 275 Other: Voiding Method Indwelling Catheter Indwelling Catheter Indwelling Catheter # Bowel Movements 0 1 Weight 72.575 kg 73 kg 73 kg Head normocephalic Neck supple Lungs clear to auscultation bilaterally no wheezing or crackles Heart regular rate and rhythm S1-S2, no rub or gallop Abdomen is soft nontender nondistended positive bowel sounds no hepatosplenomegaly. PEG tube in place Extremities no edema Neuro patient is awake. No evidence of any distress. non-verbal Results CBC & Chem 7: 12/07/19 13:14 12/07/19 13:14 Labs: Abnormal Lab Results - Last 24 Hours (Table) 12/06/19 12/06/19 12/07/19 Range/Units 16:58 20:45 05:44 Sodium (137-145) mmol/L Chloride (98-107) mmol/L Carbon Dioxide (22-30) mmol/L BUN (7-17) mg/dL Glucose (74-99) mg/dL POC Glucose (mg/dL) 374 H 290 H 74 L (75-99) mg/dL Calcium (8.4-10.2) mg/dL ALT (4-34) U/L Albumin (3.5-5.0) g/dL 12/07/19 12/07/19 12/07/19 Range/Units 11:55 12:12 13:14 Sodium 155 H (137-145) mmol/L Chloride 119 H (98-107) mmol/L Carbon Dioxide 37 H (22-30) mmol/L BUN 53 H (7-17) mg/dL Glucose 102 H (74-99) mg/dL POC Glucose (mg/dL) 68 L 73 L (75-99) mg/dL Calcium 11.6 H (8.4-10.2) mg/dL ALT 89 H (4-34) U/L Albumin 3.3 L (3.5-5.0) g/dL Thrombosis Risk Factor Assmnt - Choose All That Apply Any of the Below Risk Factors Present?: Yes Each Factor Represents 1 point: Obesity (BMI >25) Other Risk Factors: Yes Each Risk Factor Represents 3 Points: Age 75 years or older Thrombosis Risk Factor Assessment Total Risk Factor Score: 4 Thrombosis Risk Factor Assessment Level: Moderate Risk Assessment and Plan Assessment: 1. Lethargic: Possibly related dehydration and possible pneumonia. UA negative. Drug screen negative 2. Acute on chronic hypoxic and hypercapnic respiratory failure: Possibly secondary to pneumonia. Patient requiring 4 L of oxygen. Questionable pneumonia on chest x-ray. We'll add Rocephin and azithromycin. Consult pulmonary service 3. Acute kidney injury due to dehydration: Creatinine 1.29 on admission down to 0.90 with IV fluids 3. Hypernatremia: Sodium is 155. Continue to monitor. Start half-normal saline at 75 mL an hour 4. Hypercalcemia: Check parathyroid hormone level 5. Hypoglycemia with a known history of diabetes mellitus 6. History of COPD stable 7. History of CVA with residual right-sided paralysis and dysphagia. Patient is maintained on tube feedings. 8. Elevated LFTs possibly secondary to tube feedings. LFTs are trending down. No abdominal pain noted. We'll monitor. 9. Diabetes mellitus type 2 with episode of hypoglycemia likely related to patient not started on tube feedings readily. 2 feedings have been restarted. Continue Lantus 18 units at bedtime, glipizide and sliding scale coverage. 10. Essential hypertension: Blood pressure is been on the lower side. Plantar parameters of been placed around blood pressure medications. We'll decrease the Norvasc from 10 mg to 5 mg daily 11. Paroxysmal atrial fibrillation continue Xarelto 12. Mildly elevated troponins possibly related to renal failure. We'll monitor GI prophylaxis Pepcid and DVT prophylaxis Xarelto Time with Patient: Greater than 30 (Greater than 50% of the total time spent in counseling and coordination of care. I performed an examination of the patient and discussed their management with the physician Stoner Out. I have reviewed the Physician Stoner Out's notes and agree with the documented findings and plan of care)
[2019-12-07 16:51] LABS: Glucose,Whole Blood 116 mg/dL (75-99)
[2019-12-07] MEDS: AZITHROMYCIN 500 MG in SODIUM CHLORIDE 0.9% 250 ML IVPB SCH (17:55)
[2019-12-07] MEDS: SODIUM CHLORIDE 0.45% 1,000 ML IV SCH (17:58)
[2019-12-07 21:28] LABS: Glucose,Whole Blood 160 mg/dL (75-99)
[2019-12-07] MEDS: RIVAROXABAN 10 MG TAB PO SCH (21:36)
[2019-12-07] MEDS: FERROUS SULFATE 325 MG TAB PO SCH (21:36)
[2019-12-07] MEDS: FOLIC ACID 1 MG TAB PEG/G-TUBE SCH (21:36)
[2019-12-07] MEDS: PRAVASTATIN SODIUM 20 MG TAB PEG/G-TUBE SCH (21:36)
[2019-12-07] MEDS: cloNIDine HCL 0.1 MG TAB PEG/G-TUBE SCH (21:38)
[2019-12-07] MEDS: INSULIN DETEMIR (LEVEMIR) 100 UNIT/ML SYR SQ SCH (22:58)
[2019-12-08 00:39] LABS: Glucose,Whole Blood 186 mg/dL (75-99)
[2019-12-08] MEDS: INSULIN ASPART (NovoLOG) 100 UNIT/ML VIAL SQ SCH ×4 (01:28→18:10)
[2019-12-08] MEDS: SODIUM CHLORIDE 0.45% 1,000 ML IV SCH ×2 (05:12→16:21)
[2019-12-08 05:59] LABS: Glucose,Whole Blood 197 mg/dL (75-99)
[2019-12-08] MEDS: glipiZIDE 5 MG TAB PEG/G-TUBE SCH (08:10)
[2019-12-08] MEDS: amLODIPine 5 MG TAB PEG/G-TUBE SCH (08:10)
[2019-12-08] MEDS: LISINOPRIL 10 MG TAB PEG/G-TUBE SCH (08:10)
[2019-12-08] MEDS: POTASSIUM CHLORIDE ER 10 MEQ TAB.ER.PRT PO SCH (08:10)
[2019-12-08] MEDS: METOPROLOL TARTRATE 50 MG TAB PEG/G-TUBE SCH ×2 (08:10→21:13)
[2019-12-08] MEDS: CHOLECALCIFEROL 1,000 UNIT TAB PEG/G-TUBE SCH (08:10)
[2019-12-08] MEDS: HYDROCHLOROTHIAZIDE 25 MG TAB PEG/G-TUBE SCH (08:10)
[2019-12-08] MEDS: FUROSEMIDE 20 MG TAB PEG/G-TUBE SCH (08:10)
[2019-12-08 08:23] LABS: Basophils % (A) 0 %; Eosinophils # (A) 0.4 k/uL (0-0.7); Eosinophils % (A) 5 %; HCT 54.5 % (34.0-46.0); HGB 16.9 gm/dL (11.4-16.0); Hypochromasia Slight; Lymphocytes # (A) 1.3 k/uL (1.0-4.8); Lymphocytes % (A) 17 %; MCH 30.8 pg (25.0-35.0); MCHC 30.9 g/dL (31.0-37.0); MCV 99.4 fL (80.0-100.0); Mean Platelet Volume 14.6; Monocytes # (A) 0.3 k/uL (0-1.0); Monocytes % (A) 4 %; Neutrophils # (A) 5.7 k/uL (1.3-7.7); Neutrophils % (A) 73 %; RBC 5.48 m/uL (3.80-5.40); RDW 12.9 % (11.5-15.5); WBC 7.9 k/uL (3.8-10.6)
[2019-12-08] MEDS: AZITHROMYCIN 500 MG in SODIUM CHLORIDE 0.9% 250 ML IVPB SCH (08:30)
[2019-12-08 08:38] LABS: Platelet Count 83 k/uL (150-450)
[2019-12-08 08:47] LABS: Albumin 3.2 g/dL (3.5-5.0); Calcium 11.4 mg/dL (8.4-10.2); Potassium 4.1 mmol/L (3.5-5.1); Total Bilirubin 0.5 mg/dL (0.2-1.3); Total Protein 6.5 g/dL (6.3-8.2)
[2019-12-08 09:20] LABS: Large Platelets Present
--- NOTE | 2019-12-08 11:35 | P.CNPUL ---
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 patient is a long-term resident where she was noted to have progressive weakness, patient was transferred to emergency department for further evaluation, patient has been more lethargic than usual, chest x-ray revealed possible atelectasis scarring versus pneumonia, patient has been admitted into the hospital, white cell count is normal, BUN is elevated to 86 creatinine is 1.29 sugar is elevated to 359, patient noted to be hypernatremic with sodium was 154, patient noted to have mildly elevated calcium level of 11.4 with normal parathyroid level, patient is being treated for pneumonia with broad-spectrum antibiotics Review of Systems ROS unobtainable: due to mental status All systems: negative Past Medical History Past Medical History: Atrial Fibrillation, Asthma, COPD, CVA/TIA, Diabetes Mellitus, Hyperlipidemia, Hypertension, Osteoarthritis (OA) Additional Past Medical History / Comment(s): currently having leakage and tenderness around peg tube site,hx stroke with weakness of legs, unable to bear wt- ECF uses yael lift/wheelchair, hypoxia, [id number] feeding tube, bowel and urine incontinence (uses depends), slurred speach,anemia,glaucoma,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 History of Any Multi-Drug Resistant Organisms: None Reported Past Surgical History: Hysterectomy Additional Past Surgical History / Comment(s): not known at ECF,peg insertion Past Anesthesia/Blood Transfusion Reactions: No Reported Reaction, Unable to Obtain Additional Past Anesthesia/Blood Transfusion Reaction / Comment(s): spouse thinks no problems that he knows of(poor historian), no info at ECF Past Psychological History: No Psychological Hx Reported Smoking Status: Former smoker Past Alcohol Use History: None Reported Additional Past Alcohol Use History / Comment(s): STARTED SMOKING AT AGE 17,SMOKED LESS THAN 1 PPD, QUIT 2001. Past Drug Use History: None Reported - Past Family History Mother Family Medical History: Unable to Obtain Additional Family Medical History / Comment(s): no info at ECF Father History Unknown: Yes Medications and Allergies Home Medications Medication Instructions Recorded Confirmed Type amLODIPine [Norvasc] 10 mg PEG/G-TUBE QAM 01/24/16 12/06/19 History Furosemide [Lasix] 20 mg PEG/G-TUBE DAILY 03/31/16 12/06/19 History Lisinopril [Zestril] 10 mg PEG/G-TUBE QAM 07/22/17 12/06/19 History Pravastatin Sodium [Pravachol] 10 mg PEG/G-TUBE HS 07/22/17 12/06/19 History Folic Acid 0.8 mg PEG/G-TUBE HS 02/23/19 12/06/19 History Insulin Glargine [Lantus] 18 unit SQ HS 02/23/19 12/06/19 History Metoprolol Tartrate [Lopressor] 50 mg PEG/G-TUBE BID 02/23/19 12/06/19 History Cholecalciferol (Vitamin D3) 2,000 unit PEG/G-TUBE DAILY 10/05/19 12/06/19 Hist ory [Vitamin D3] Ferrous Sulfate [Iron (65 MG 325 mg PEG/G-TUBE HS 10/05/19 12/06/19 History Elemental)] Hydrochlorothiazide [Hydrodiuril] 25 mg PEG/G-TUBE DAILY 10/05/19 12/06/19 History cloNIDine HCL [Catapres] 0.1 mg PEG/G-TUBE HS 10/05/19 12/06/19 History glipiZIDE [Glucotrol] 5 mg PEG/G-TUBE DAILY 10/05/19 12/06/19 History Rivaroxaban [Xarelto] 10 mg PEG/G-TUBE HS 10/06/19 12/06/19 History INSULIN LISPRO (humaLOG) [humaLOG] 2 units SQ AC-TID 11/07/19 12/06/19 History Potassium Chloride Oral Liquid 10 meq PEG/G-TUBE DAILY 11/07/19 12/06/19 History Allergies Allergy/AdvReac Type Severity Reaction Status Date / Time No Known Allergies Allergy Verified 12/06/19 11:15 Physical Exam Vitals: Vital Signs Temp Pulse Resp BP Pulse Ox 12/08/19 06:13 97.6 F 54 L 16 121/71 97 12/07/19 21:15 97.8 F 60 16 145/78 96 12/07/19 20:00 58 L 17 12/07/19 19:55 98.0 F 62 17 135/67 92 L 12/07/19 16:00 97.8 F 54 L 16 119/63 100 12/07/19 12:00 98.0 F 49 L 16 105/56 93 L Intake and Output 12/07/19 12/08/19 12/08/19 22:59 06:59 14:59 Intake Total 034 52 6558 Output Total 600 Balance 160 -520 1268 Intake: IV 900 Azithromycin 500 mg In 250 Sodium Chloride 0.9% 250 ml @ 250 mls/hr IVPB DAILY [facility] Rx#:[id number] Sodium Chloride 0.45% 1, 600 000 ml @ 75 mls/hr IV . [id number] [facility] Rx#:[id number] cefTRIAXone 1 gm In 50 Sodium Chloride 0.9% 50 ml @ 100 mls/hr IVPB Q24HR [facility] Rx#:[id number] Tube Feeding 160 80 368 Output: Urine 600 Other: Voiding Method Indwelling Catheter Indwelling Catheter Indwelling Catheter - Constitutional General appearance: average body habitus, cooperative, disheveled - EENT Eyes: EOMI, poor dentition Ears: bilateral: normal - Neck Neck: normal ROM Carotids: bilateral: upstroke normal Thyroid: bilateral: normal size - Respiratory Respiratory: bilateral: diminished, negative: CTA - Cardiovascular Rhythm: irregularly irregular Heart sounds: normal: S1, S2 - Gastrointestinal General gastrointestinal: normal bowel sounds, soft - Integumentary Integumentary: normal turgor - Neurologic Right-sided weakness along with a phasic Results - Laboratory Findings CBC and BMP: 12/08/19 07:43 12/08/19 07:43 PT/INR, D-dimer PT 10.3 sec (9.0-12.0) 12/06/19 11:25 INR 1.0 (<1.2) 12/06/19 11:25 Abnormal lab findings: Abnormal Labs 12/06/19 12/06/19 12/06/19 11:25 11:25 11:25 RBC 5.60 H Hgb 17.3 H Hct 55.2 H MCHC Plt Count 92 L Sodium 152 H Chloride 112 H Carbon Dioxide 35 H BUN 86 H Creatinine 1.29 H Glucose 359 H POC Glucose (mg/dL) Calcium 11.3 H AST 49 H ALT 112 H Troponin I 0.082 H* Albumin 3.1 L 12/06/19 12/06/19 12/06/19 11:46 16:58 20:45 RBC Hgb Hct MCHC Plt Count Sodium Chloride Carbon Dioxide BUN Creatinine Glucose POC Glucose (mg/dL) 312 H 374 H 290 H Calcium AST ALT Troponin I Albumin 12/07/19 12/07/19 12/07/19 05:44 11:55 12:12 RBC Hgb Hct MCHC Plt Count Sodium Chloride Carbon Dioxide BUN Creatinine Glucose POC Glucose (mg/dL) 74 L 68 L 73 L Calcium AST ALT Troponin I Albumin 12/07/19 12/07/19 12/07/19 13:14 13:14 13:14 RBC 5.86 H Hgb 18.1 H Hct 58.0 H* MCHC Plt Count 86 L Sodium 155 H Chloride 119 H Carbon Dioxide 37 H BUN 53 H Creatinine Glucose 102 H POC Glucose (mg/dL) Calcium 11.6 H AST ALT 89 H Troponin I 0.075 H* Albumin 3.3 L 12/07/19 12/07/19 12/08/19 16:49 21:26 00:37 RBC Hgb Hct MCHC Plt Count Sodium Chloride Carbon Dioxide BUN Creatinine Glucose POC Glucose (mg/dL) 116 H 160 H 186 H Calcium AST ALT Troponin I Albumin 12/08/19 12/08/19 12/08/19 05:58 07:43 07:43 RBC 5.48 H Hgb 16.9 H Hct 54.5 H MCHC 30.9 L Plt Count 83 L Sodium 154 H Chloride 119 H Carbon Dioxide BUN 42 H Creatinine Glucose 200 H POC Glucose (mg/dL) 197 H Calcium 11.4 H AST ALT 67 H Troponin I Albumin 3.2 L - Diagnostic Findings Chest x-ray: report reviewed, image reviewed Assessment and Plan Assessment: Bi basilar pneumonia Mild hypercalcemia likely related to immobility and hydrochlorothiazide Hypernatremia Altered mental status multifactorial due to above History of CVA with right hemiparesis and aphasia Plan: Continue antibiotics Monitor aspiration precautions Hydration for both hypercalcemia and hyponatremia, Continue IV fluid with half normal saline however may need to change to D5 with sodium remains elevated Observe calcium closely Time with Patient: Greater than 30
[2019-12-08 12:08] LABS: Glucose,Whole Blood 193 mg/dL (75-99)
--- NOTE | 2019-12-08 14:00 | P.PN ---
Subjective Progress Note Date: 12/08/19 This is a 79-year-old female with a known history of CVA with right sided paralysis and dysphagia requiring tube feeding, atrial fibrillation anticoagulated on Xarelto, diabetes mellitus, hyperlipidemia, hypertension and vascular dementia. Patient presented to the emergency room from the halfway because she had been more tired lately. Information has been obtained from patient's chart. According to the ER physician he had talked with the . There's been no evidence of any fever, chest pain or shortness of breath. No vomiting or diarrhea reported. Patient's tube feedings were started this morning. She did have evidence of acute kidney 8 injury with dehydration creatinine of 1.29. She did have a slight elevated troponin of 0.082. Chest x- ray showing chronic emphysematous change in cardiomegaly with left greater than right bibasilar atelectasis and or infiltrates. EKG shows normal sinus rhythm. Patient is lying in bed comfortably. She is nonverbal. No evidence of any dis tress. 12/08/2019 patient lying in bed comfortably. She opens her eyes to her name. She is nonverbal. She's seen by pulmonary service. She's being treated for pneumonia with Rocephin and azithromycin. Still requiring 4 L of oxygen. Blood sugars have improved up to 193 with the tube feedings been started. Sodium level is coming down from 155-154. Objective - Vital Signs Vital signs: Vital Signs Temp 97.6 F 12/08/19 06:13 Pulse 54 L 12/08/19 06:13 Resp 16 12/08/19 06:13 BP 121/71 12/08/19 06:13 Pulse Ox 97 12/08/19 06:13 Intake & Output 12/07/19 12/08/19 12/08/19 18:59 06:59 18:59 Intake Total 937 675 9492 Output Total 600 700 Balance 100 -440 568 Weight 73 kg Intake: IV 900 Azithromycin 500 mg In 250 Sodium Chloride 0.9% 250 ml @ 250 mls/hr IVPB DAILY [facility] Rx#:[id number] Sodium Chloride 0.45% 1, 600 000 ml @ 75 mls/hr IV . [id number] [facility] Rx#:[id number] cefTRIAXone 1 gm In 50 Sodium Chloride 0.9% 50 ml @ 100 mls/hr IVPB Q24HR [facility] Rx#:[id number] Tube Feeding 100 160 368 Output: Urine 600 700 Other: Voiding Method Indwelling Catheter Indwelling Catheter Indwelling Catheter - Exam Head normocephalic Neck supple Lungs clear to auscultation bilaterally no wheezing or crackles Heart regular rate and rhythm S1-S2, no rub or gallop Abdomen is soft nontender nondistended positive bowel sounds no hepatosple nomegaly. PEG tube in place Extremities no edema Neuro more awake today nonverbal - Labs CBC & Chem 7: 12/08/19 07:43 12/08/19 07:43 Labs: Abnormal Lab Results - Last 24 Hours (Table) 12/07/19 12/07/19 12/07/19 Range/Units 13:14 13:14 16:49 RBC 5.86 H (3.80-5.40) m/uL Hgb 18.1 H (11.4-16.0) gm/dL Hct 58.0 H* (34.0-46.0) % MCHC (31.0-37.0) g/dL Plt Count 86 L (150-450) k/uL Sodium (137-145) mmol/L Chloride (98-107) mmol/L BUN (7-17) mg/dL Glucose (74-99) mg/dL POC Glucose (mg/dL) 116 H (75-99) mg/dL Calcium (8.4-10.2) mg/dL ALT (4-34) U/L Troponin I 0.075 H* (0.000-0.034) ng/mL Albumin (3.5-5.0) g/dL 12/07/19 12/08/19 12/08/19 Range/Units 21:26 00:37 05:58 RBC (3.80-5.40) m/uL Hgb (11.4-16.0) gm/dL Hct (34.0-46.0) % MCHC (31.0-37.0) g/dL Plt Count (150-450) k/uL Sodium (137-145) mmol/L Chloride (98-107) mmol/L BUN (7-17) mg/dL Glucose (74-99) mg/dL POC Glucose (mg/dL) 160 H 186 H 197 H (75-99) mg/dL Calcium (8.4-10.2) mg/dL ALT (4-34) U/L Troponin I (0.000-0.034) ng/mL Albumin (3.5-5.0) g/dL 12/08/19 12/08/19 12/08/19 Range/Units 07:43 07:43 11:57 RBC 5.48 H (3.80-5.40) m/uL Hgb 16.9 H (11.4-16.0) gm/dL Hct 54.5 H (34.0-46.0) % MCHC 30.9 L (31.0-37.0) g/dL Plt Count 83 L (150-450) k/uL Sodium 154 H (137-145) mmol/L Chloride 119 H (98-107) mmol/L BUN 42 H (7-17) mg/dL Glucose 200 H (74-99) mg/dL POC Glucose (mg/dL) 193 H (75-99) mg/dL Calcium 11.4 H (8.4-10.2) mg/dL ALT 67 H (4-34) U/L Troponin I (0.000-0.034) ng/mL Albumin 3.2 L (3.5-5.0) g/dL Assessment and Plan Assessment: 1. Altered mental status and Lethargic: Likely a metabolic encephalopathy due to Possibly related dehydration, possible pneumonia and hypernatremia. UA negative. Drug screen negative 2. Acute on chronic hypoxic and hypercapnic respiratory failure: Possibly secondary to pneumonia. Patient requiring 4 L of oxygen. Questionable pneumonia on chest x-ray. We'll add Rocephin and azithromycin. Consult pulmonary service 3. Bibasilar pneumonia: Continue Rocephin and azithromycin. Patient followed by pulmonary service. 4. Acute kidney injury due to dehydration: Improved with IV fluids 3. Hypernatremia: Sodium is 155. Continue to monitor. Continue half-normal saline at 75 mL an hour 4. Hypercalcemia: Possibly due to patient's immobility and hydrochlorothiazide. PTH level normal at 45 5. Hypoglycemia with a known history of diabetes mellitus 6. History of COPD stable 7. History of CVA with residual right-sided paralysis and dysphagia. Patient is maintained on tube feedings. 8. Elevated LFTs possibly secondary to tube feedings. LFTs are trending down. No abdominal pain noted. We'll monitor. 9. Diabetes mellitus type 2 with episode of hypoglycemia likely related to patient not started on tube feedings readily. Tube feedings have been restarted. Continue Lantus 18 units at bedtime, glipizide and sliding scale coverage. Blood sugars have improved 10. Essential hypertension: Blood pressure is been on the lower side. Blood pressures have improved with decreasing the Norvasc from 10-5 mg daily 11. Paroxysmal atrial fibrillation continue Xarelto 12. Mildly elevated troponins possibly related to renal failure. We'll monitor GI prophylaxis Pepcid and DVT prophylaxis Xarelto I performed an examination of the patient and discussed their management with the physician Desktop Support Technician. I have reviewed the Physician Desktop Support Technician's notes and agree with the documented findings and plan of care
[2019-12-08 17:18] LABS: Glucose,Whole Blood 172 mg/dL (75-99)
[2019-12-08] MEDS: PRAVASTATIN SODIUM 20 MG TAB PEG/G-TUBE SCH (21:12)
[2019-12-08 21:13] LABS: Glucose,Whole Blood 157 mg/dL (75-99)
[2019-12-08] MEDS: FERROUS SULFATE 325 MG TAB PO SCH (21:13)
[2019-12-08] MEDS: RIVAROXABAN 10 MG TAB PO SCH (21:13)
[2019-12-08] MEDS: cloNIDine HCL 0.1 MG TAB PEG/G-TUBE SCH (21:13)
[2019-12-08] MEDS: INSULIN DETEMIR (LEVEMIR) 100 UNIT/ML SYR SQ SCH (21:13)
[2019-12-08] MEDS: FOLIC ACID 1 MG TAB PEG/G-TUBE SCH (21:13)
[2019-12-08 23:54] LABS: Glucose,Whole Blood 173 mg/dL (75-99)
[2019-12-09] MEDS: INSULIN ASPART (NovoLOG) 100 UNIT/ML VIAL SQ SCH ×4 (00:26→17:39)
[2019-12-09 05:44] LABS: Glucose,Whole Blood 162 mg/dL (75-99)
[2019-12-09 08:19] LABS: Albumin 3.1 g/dL (3.5-5.0); Total Bilirubin 0.6 mg/dL (0.2-1.3); Total Protein 6.4 g/dL (6.3-8.2)
[2019-12-09] MEDS: SODIUM CHLORIDE 0.45% 1,000 ML IV SCH ×2 (08:19→19:43)
[2019-12-09] MEDS: FUROSEMIDE 20 MG TAB PEG/G-TUBE SCH (08:22)
[2019-12-09] MEDS: POTASSIUM CHLORIDE ER 10 MEQ TAB.ER.PRT PO SCH (08:22)
[2019-12-09] MEDS: CHOLECALCIFEROL 1,000 UNIT TAB PEG/G-TUBE SCH (08:22)
[2019-12-09] MEDS: glipiZIDE 5 MG TAB PEG/G-TUBE SCH (08:22)
[2019-12-09] MEDS: LISINOPRIL 10 MG TAB PEG/G-TUBE SCH (08:22)
[2019-12-09] MEDS: METOPROLOL TARTRATE 50 MG TAB PEG/G-TUBE SCH ×2 (08:23→20:42)
[2019-12-09] MEDS: amLODIPine 5 MG TAB PEG/G-TUBE SCH (08:23)
[2019-12-09] MEDS: HYDROCHLOROTHIAZIDE 25 MG TAB PEG/G-TUBE SCH (08:23)
[2019-12-09 08:30] LABS: Potassium 3.6 mmol/L (3.5-5.1)
[2019-12-09 08:38] LABS: Basophils % (A) 1 %; Eosinophils # (A) 0.4 k/uL (0-0.7); Eosinophils % (A) 5 %; HCT 52.2 % (34.0-46.0); HGB 16.4 gm/dL (11.4-16.0); Lymphocytes # (A) 1.2 k/uL (1.0-4.8); Lymphocytes % (A) 17 %; MCH 30.7 pg (25.0-35.0); MCHC 31.4 g/dL (31.0-37.0); MCV 97.5 fL (80.0-100.0); Mean Platelet Volume 13.9; Monocytes # (A) 0.4 k/uL (0-1.0); Monocytes % (A) 6 %; Neutrophils # (A) 5.1 k/uL (1.3-7.7); Neutrophils % (A) 70 %; RBC 5.35 m/uL (3.80-5.40); WBC 7.4 k/uL (3.8-10.6)
[2019-12-09] MEDS: AZITHROMYCIN 500 MG in SODIUM CHLORIDE 0.9% 250 ML IVPB SCH (08:52)
[2019-12-09 09:43] LABS: Large Platelets Present; Platelet Count 90 k/uL (150-450)
[2019-12-09 09:45] LABS: Anisocytosis (M) Present
--- NOTE | 2019-12-09 10:34 | P.PN ---
Subjective Progress Note Date: 12/09/19 Principal diagnosis: Bi basilar pneumonia Mild hypercalcemia likely related to immobility and hydrochlorothiazide Hypernatremia Altered mental status multifactorial due to above History of CVA with right hemiparesis and aphasia 12/09/2019, patient seen eval examined during the rounds labs reviewed medications reviewed, white cell count is normal, sodium has improved to 147, calcium is coming down with hydration is a 11 now overall respiratory status remains stable, oxygen saturation is 91-94% on 3 L This is a 79-year-old female who has a history of a phase he is and 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 patient is a retirement resident where she was noted to have progressive weakness, patient was transferred to emergency department for further evaluation, patient has been more lethargic than usual, chest x-ray revealed possible atelectasis scarring versus pneumonia, patient has been admitted into the hospital, white cell count is normal, BUN is elevated to 86 creatinine is 1.29 sugar is elevated to 359, patient noted to be hypernatremic with sodium was 154, patient noted to have mildly elevated calcium level of 11.4 with normal parathyroid level, patient is being treated for pneumonia with broad-spectrum antibiotics Objective - Vital Signs Vital signs: Vital Signs Temp 98.9 F 12/09/19 05:52 Pulse 69 12/09/19 05:52 Resp 22 12/09/19 05:52 BP 120/65 12/09/19 05:52 Pulse Ox 91 L 12/09/19 05:52 Intake & Output 12/08/19 12/09/19 12/09/19 18:59 06:59 18:59 Intake Total 3739 316 8024 Output Total 1050 500 Balance 402 -132 1084 Weight 68.5 kg Intake: IV 900 900 Azithromycin 500 mg In 250 250 Sodium Chloride 0.9% 250 ml @ 250 mls/hr IVPB DAILY [facility] Rx#:[id number] Sodium Chloride 0.45% 1, 600 600 000 ml @ 75 mls/hr IV . [id number] [facility] Rx#:[id number] cefTRIAXone 1 gm In 50 50 Sodium Chloride 0.9% 50 ml @ 100 mls/hr IVPB Q24HR [facility] Rx#:[id number] Oral 0 Tube Feeding 552 368 184 Output: Urine 1050 500 Other: Voiding Method Indwelling Catheter Indwelling Catheter Indwelling Catheter # Bowel Movements 1 - Exam - Constitutional General appearance: average body habitus, cooperative, disheveled - EENT Eyes: EOMI, poor dentition Ears: bilateral: normal - Neck Neck: normal ROM Carotids: bilateral: upstroke normal Thyroid: bilateral: normal size - Respiratory Respiratory: bilateral: diminished, negative: CTA - Cardiovascular Rhythm: irregularly irregular Heart sounds: normal: S1, S2 - Gastrointestinal General gastrointestinal: normal bowel sounds, soft - Integumentary Integumentary: normal turgor - Neurologic Right-sided weakness along with a phasic - Labs CBC & Chem 7: 12/09/19 07:42 12/09/19 07:42 Labs: Abnormal Lab Results - Last 24 Hours (Table) 12/08/19 12/08/19 12/08/19 Range/Units 11:57 17:14 21:11 Hgb (11.4-16.0) gm/dL Hct (34.0-46.0) % Plt Count (150-450) k/uL Sodium (137-145) mmol/L Chloride (98-107) mmol/L Carbon Dioxide (22-30) mmol/L BUN (7-17) mg/dL Glucose (74-99) mg/dL POC Glucose (mg/dL) 193 H 172 H 157 H (75-99) mg/dL Calcium (8.4-10.2) mg/dL ALT (4-34) U/L Albumin (3.5-5.0) g/dL 12/08/19 12/09/19 12/09/19 Range/Units 23:53 05:42 07:42 Hgb 16.4 H (11.4-16.0) gm/dL Hct 52.2 H (34.0-46.0) % Plt Count 90 L (150-450) k/uL Sodium (137-145) mmol/L Chloride (98-107) mmol/L Carbon Dioxide (22-30) mmol/L BUN (7-17) mg/dL Glucose (74-99) mg/dL POC Glucose (mg/dL) 173 H 162 H (75-99) mg/dL Calcium (8.4-10.2) mg/dL ALT (4-34) U/L Albumin (3.5-5.0) g/dL 12/09/19 Range/Units 07:42 Hgb (11.4-16.0) gm/dL Hct (34.0-46.0) % Plt Count (150-450) k/uL Sodium 147 H (137-145) mmol/L Chloride 114 H (98-107) mmol/L Carbon Dioxide 31 H (22-30) mmol/L BUN 32 H (7-17) mg/dL Glucose 153 H (74-99) mg/dL POC Glucose (mg/dL) (75-99) mg/dL Calcium 11.0 H (8.4-10.2) mg/dL ALT 48 H (4-34) U/L Albumin 3.1 L (3.5-5.0) g/dL Assessment and Plan Assessment: Bi basilar pneumonia can be switched to antibiotics via PEG tube Mild hypercalcemia likely related to immobility and hydrochlorothiazide Hypernatremia Altered mental status multifactorial due to above History of CVA with right hemiparesis and aphasia Agree with discharge planning Plan: Continue antibiotics Monitor aspiration precautions Hydration for both hypercalcemia and hyponatremia, Continue IV fluid with half normal saline however may need to change to D5 with sodium remains elevated Observe calcium closely It appears that patient likely need more hydration via PEG tube on outpatient basis to keep calcium and sodium a normal range Time with Patient: Greater than 30
[2019-12-09 11:46] LABS: Glucose,Whole Blood 184 mg/dL (75-99)
--- NOTE | 2019-12-09 16:02 | P.PN ---
Subjective Progress Note Date: 12/09/19 This is a 79-year-old female with a known history of CVA with right sided paralysis and dysphagia requiring tube feeding, atrial fibrillation anticoagulated on Xarelto, diabetes mellitus, hyperlipidemia, hypertension and vascular dementia. Patient presented to the emergency room from the shelter because she had been more tired lately. Information has been obtained from patient's chart. According to the ER physician he had talked with the . There's been no evidence of any fever, chest pain or shortness of breath. No vomiting or diarrhea reported. Patient's tube feedings were started this morning. She did have evidence of acute kidney 8 injury with dehydration creatinine of 1.29. She did have a slight elevated troponin of 0.082. Chest x- ray showing chronic emphysematous change in cardiomegaly with left greater than right bibasilar atelectasis and or infiltrates. EKG shows normal sinus rhythm. Patient is lying in bed comfortably. She is nonverbal. No evidence of any di stress. 12/08/2019 patient lying in bed comfortably. She opens her eyes to her name. She is nonverbal. She's seen by pulmonary service. She's being treated for pneumonia with Rocephin and azithromycin. Still requiring 4 L of oxygen. Blood sugars have improved up to 193 with the tube feedings been started. Sodium level is coming down from 155-154. On 12/09/2019 patient was seen and examined on the medical floor she is alert and oriented 3 in no apparent distress sodium is still elevated and calcium is still elevated she is nonverbal there is no fever or chills no evidence of shortness of breath or distress Objective - Vital Signs Vital signs: Vital Signs Temp 98.0 F 12/09/19 13:45 Pulse 57 L 12/09/19 13:45 Resp 18 12/09/19 13:45 BP 143/82 12/09/19 13:45 Pulse Ox 98 12/09/19 13:45 Intake & Output 12/08/19 12/09/19 12/09/19 18:59 06:59 18:59 Intake Total 0470 276 8108 Output Total 1050 500 Balance 402 -132 1452 Weight 68.5 kg 68.5 kg Intake: IV 900 900 Azithromycin 500 mg In 250 250 Sodium Chloride 0.9% 250 ml @ 250 mls/hr IVPB DAILY [facility] Rx#:[id number] Sodium Chloride 0.45% 1, 600 600 000 ml @ 75 mls/hr IV . [id number] [facility] Rx#:[id number] cefTRIAXone 1 gm In 50 50 Sodium Chloride 0.9% 50 ml @ 100 mls/hr IVPB Q24HR [facility] Rx#:[id number] Oral 0 Tube Feeding 552 368 552 Output: Urine 1050 500 Other: Voiding Method Indwelling Catheter Indwelling Catheter Indwelling Catheter # Bowel Movements 1 - Exam Head normocephalic and atraumatic Neck supple, no JVD no goiter no adenopathy Lungs clear to auscultation bilaterally no wheezing or crackles Heart regular rate and rhythm S1-S2, no rub or gallop Abdomen is soft nontender nondistended positive bowel sounds no hepatosplenomegaly. PEG tube in place Extremities no edema, no cyanosis or clubbing Neuro more awake today nonverbal, no new focal deficit - Labs CBC & Chem 7: 12/09/19 07:42 12/09/19 07:42 Labs: Abnormal Lab Results - Last 24 Hours (Table) 12/08/19 12/08/19 12/08/19 Range/Units 17:14 21:11 23:53 Hgb (11.4-16.0) gm/dL Hct (34.0-46.0) % Plt Count (150-450) k/uL Sodium (137-145) mmol/L Chloride (98-107) mmol/L Carbon Dioxide (22-30) mmol/L BUN (7-17) mg/dL Glucose (74-99) mg/dL POC Glucose (mg/dL) 172 H 157 H 173 H (75-99) mg/dL Calcium (8.4-10.2) mg/dL ALT (4-34) U/L Albumin (3.5-5.0) g/dL 12/09/19 12/09/19 12/09/19 Range/Units 05:42 07:42 07:42 Hgb 16.4 H (11.4-16.0) gm/dL Hct 52.2 H (34.0-46.0) % Plt Count 90 L (150-450) k/uL Sodium 147 H (137-145) mmol/L Chloride 114 H (98-107) mmol/L Carbon Dioxide 31 H (22-30) mmol/L BUN 32 H (7-17) mg/dL Glucose 153 H (74-99) mg/dL POC Glucose (mg/dL) 162 H (75-99) mg/dL Calcium 11.0 H (8.4-10.2) mg/dL ALT 48 H (4-34) U/L Albumin 3.1 L (3.5-5.0) g/dL 12/09/19 Range/Units 11:44 Hgb (11.4-16.0) gm/dL Hct (34.0-46.0) % Plt Count (150-450) k/uL Sodium (137-145) mmol/L Chloride (98-107) mmol/L Carbon Dioxide (22-30) mmol/L BUN (7-17) mg/dL Glucose (74-99) mg/dL POC Glucose (mg/dL) 184 H (75-99) mg/dL Calcium (8.4-10.2) mg/dL ALT (4-34) U/L Albumin (3.5-5.0) g/dL Assessment and Plan Assessment: 1. Altered mental status and Lethargic: Likely a metabolic encephalopathy due to Possibly related dehydration, possible pneumonia and hypernatremia. UA negative. Drug screen negative 2. Acute on chronic hypoxic and hypercapnic respiratory failure: Possibly secondary to pneumonia. Patient requiring 4 L of oxygen. Questionable pneumonia on chest x-ray. We'll add Rocephin and azithromycin. Consult pulmonary service 3. Bibasilar pneumonia: Continue Rocephin and azithromycin. Patient followed by pulmonary service. 4. Acute kidney injury due to dehydration: Improved with IV fluids 3. Hypernatremia: Sodium is 155. Continue to monitor. Continue half-normal saline at 75 mL an hour 4. Hypercalcemia: Possibly due to patient's immobility and hydrochlorothiazide. PTH level normal at 45 5. Hypoglycemia with a known history of diabetes mellitus 6. History of COPD stable 7. History of CVA with residual right-sided paralysis and dysphagia. Patient is maintained on tube feedings. 8. Elevated LFTs possibly secondary to tube feedings. LFTs are trending down. No abdominal pain noted. We'll monitor. 9. Diabetes mellitus type 2 with episode of hypoglycemia likely related to patient not started on tube feedings readily. Tube feedings have been restarted. Continue Lantus 18 units at bedtime, glipizide and sliding scale coverage. Blood sugars have improved 10. Essential hypertension: Blood pressure is been on the lower side. Blood pressures have improved with decreasing the Norvasc from 10-5 mg daily 11. Paroxysmal atrial fibrillation continue Xarelto 12. Mildly elevated troponins possibly related to renal failure. We'll monitor GI prophylaxis Pepcid and DVT prophylaxis Xarelto
[2019-12-09 16:50] LABS: Glucose,Whole Blood 182 mg/dL (75-99)
[2019-12-09] MEDS: FERROUS SULFATE 325 MG TAB PO SCH (20:42)
[2019-12-09] MEDS: FOLIC ACID 1 MG TAB PEG/G-TUBE SCH (20:42)
[2019-12-09] MEDS: RIVAROXABAN 10 MG TAB PO SCH (20:43)
[2019-12-09] MEDS: PRAVASTATIN SODIUM 20 MG TAB PEG/G-TUBE SCH (20:43)
[2019-12-09] MEDS: cloNIDine HCL 0.1 MG TAB PEG/G-TUBE SCH (20:43)
[2019-12-09] MEDS: INSULIN DETEMIR (LEVEMIR) 100 UNIT/ML SYR SQ SCH (20:58)
[2019-12-10 00:17] LABS: Glucose,Whole Blood 140 mg/dL (75-99)
[2019-12-10] MEDS: INSULIN ASPART (NovoLOG) 100 UNIT/ML VIAL SQ SCH ×5 (00:30→18:06)
[2019-12-10 06:23] LABS: Glucose,Whole Blood 124 mg/dL (75-99)
[2019-12-10 07:59] LABS: Basophils % (A) 0 %; Eosinophils # (A) 0.4 k/uL (0-0.7); Eosinophils % (A) 5 %; HCT 50.3 % (34.0-46.0); HGB 15.9 gm/dL (11.4-16.0); Lymphocytes # (A) 1.7 k/uL (1.0-4.8); Lymphocytes % (A) 22 %; MCH 30.6 pg (25.0-35.0); MCHC 31.7 g/dL (31.0-37.0); MCV 96.8 fL (80.0-100.0); Monocytes # (A) 0.4 k/uL (0-1.0); Monocytes % (A) 5 %; Neutrophils # (A) 4.9 k/uL (1.3-7.7); Neutrophils % (A) 65 %; RDW 12.8 % (11.5-15.5); WBC 7.6 k/uL (3.8-10.6)
[2019-12-10] MEDS: glipiZIDE 5 MG TAB PEG/G-TUBE SCH (08:08)
[2019-12-10] MEDS: POTASSIUM CHLORIDE ER 10 MEQ TAB.ER.PRT PO SCH (08:08)
[2019-12-10] MEDS: amLODIPine 5 MG TAB PEG/G-TUBE SCH (08:08)
[2019-12-10] MEDS: HYDROCHLOROTHIAZIDE 25 MG TAB PEG/G-TUBE SCH (08:08)
[2019-12-10] MEDS: FUROSEMIDE 20 MG TAB PEG/G-TUBE SCH (08:08)
[2019-12-10 08:09] LABS: Mean Platelet Volume 13.2; Platelet Count 85 k/uL (150-450)
[2019-12-10] MEDS: CHOLECALCIFEROL 1,000 UNIT TAB PEG/G-TUBE SCH (08:09)
[2019-12-10] MEDS: METOPROLOL TARTRATE 50 MG TAB PEG/G-TUBE SCH ×2 (08:09→21:39)
[2019-12-10] MEDS: LISINOPRIL 10 MG TAB PEG/G-TUBE SCH (08:09)
[2019-12-10 08:28] LABS: Albumin 2.9 g/dL (3.5-5.0); Calcium 10.7 mg/dL (8.4-10.2); Potassium 3.5 mmol/L (3.5-5.1); Total Bilirubin 0.4 mg/dL (0.2-1.3)
[2019-12-10] MEDS: AZITHROMYCIN 500 MG in SODIUM CHLORIDE 0.9% 250 ML IVPB SCH (09:09)
--- NOTE | 2019-12-10 10:07 | P.PN ---
Subjective Progress Note Date: 12/10/19 Principal diagnosis: Bi basilar pneumonia Mild hypercalcemia likely related to immobility and hydrochlorothiazide Hypernatremia Altered mental status multifactorial due to above History of CVA with right hemiparesis and aphasia 12/10/2019, patient seen eval reexamined during the rounds labs reviewed hematocrit has improved with rehydration, so as the calcium level now it's 10.7 sodium is improved to 143 WELL respiratory status remains stable, 94% room air 12/09/2019, patient seen eval examined during the rounds labs reviewed medications reviewed, white cell count is normal, sodium has improved to 147, calcium is coming down with hydration is a 11 now overall respiratory status remains stable, oxygen saturation is 91-94% on 3 L This is a 79-year-old female who has a history of a phase he is and 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 [facility] she was noted to have progressive weakness, patient was transferred to emergency department for further evaluation, patient has been more lethargic than usual, chest x-ray revealed possible atelectasis scarring versus pneumonia, patient has been admitted into the hospital, white cell count is normal, BUN is elevated to 86 creatinine is 1.29 sugar is elevated to 359, patient noted to be hypernatremic with sodium was 154, patient noted to have mildly elevated calcium level of 11.4 with normal parathyroid level, patient is being treated for pneumonia with broad-spectrum antibiotics Objective - Vital Signs Vital signs: Vital Signs Temp 97.9 F 12/10/19 04:30 Pulse 64 12/10/19 04:30 Resp 18 12/10/19 07:49 BP 106/57 12/10/19 04:30 Pulse Ox 94 L 12/10/19 04:30 Intake & Output 12/09/19 12/10/19 12/10/19 18:59 06:59 18:59 Intake Total 1452 1152 184 Output Total 1050 Balance 1452 102 184 Weight 68.5 kg 72 kg Intake: IV 900 600 Azithromycin 500 mg In 250 Sodium Chloride 0.9% 250 ml @ 250 mls/hr IVPB DAILY [facility] Rx#:[id number] Sodium Chloride 0.45% 1, 600 600 000 ml @ 75 mls/hr IV . [id number] [facility] Rx#:[id number] cefTRIAXone 1 gm In 50 Sodium Chloride 0.9% 50 ml @ 100 mls/hr IVPB Q24HR [facility] Rx#:[id number] Oral 0 Tube Feeding 552 552 184 Output: Urine 1050 Other: Voiding Method Indwelling Catheter Indwelling Catheter Indwelling Catheter - Exam - Constitutional General appearance: average body habitus, cooperative, disheveled - EENT Eyes: EOMI, poor dentition Ears: bilateral: normal - Neck Neck: normal ROM Carotids: bilateral: upstroke normal Thyroid: bilateral: normal size - Respiratory Respiratory: bilateral: diminished, negative: CTA - Cardiovascular Rhythm: irregularly irregular Heart sounds: normal: S1, S2 - Gastrointestinal General gastrointestinal: normal bowel sounds, soft - Integumentary Integumentary: normal turgor - Neurologic Right-sided weakness along with a phasic - Labs CBC & Chem 7: 12/10/19 07:21 12/10/19 07:21 Labs: Abnormal Lab Results - Last 24 Hours (Table) 12/09/19 12/09/19 12/10/19 Range/Units 11:44 16:47 00:12 Hct (34.0-46.0) % Plt Count (150-450) k/uL Chloride (98-107) mmol/L Carbon Dioxide (22-30) mmol/L BUN (7-17) mg/dL Glucose (74-99) mg/dL POC Glucose (mg/dL) 184 H 182 H 140 H (75-99) mg/dL Calcium (8.4-10.2) mg/dL ALT (4-34) U/L Total Protein (6.3-8.2) g/dL Albumin (3.5-5.0) g/dL 12/10/19 12/10/19 12/10/19 Range/Units 06:16 07:21 07:21 Hct 50.3 H (34.0-46.0) % Plt Count 85 L (150-450) k/uL Chloride 109 H (98-107) mmol/L Carbon Dioxide 31 H (22-30) mmol/L BUN 26 H (7-17) mg/dL Glucose 152 H (74-99) mg/dL POC Glucose (mg/dL) 124 H (75-99) mg/dL Calcium 10.7 H (8.4-10.2) mg/dL ALT 37 H (4-34) U/L Total Protein 6.0 L (6.3-8.2) g/dL Albumin 2.9 L (3.5-5.0) g/dL Assessment and Plan Assessment: Bi basilar pneumonia can be switched to antibiotics via PEG tube at the time of discharge Mild hypercalcemia likely related to immobility and hydrochlorothiazide, continued to improve Hypernatremia, continued to improve Altered mental status multifactorial due to above and due to CVA with right hemiparesis and aphasia History of CVA with right hemiparesis and aphasia Agree with discharge planning Plan: Continue antibiotics Monitor aspiration precautions Hydration for both hypercalcemia and hyponatremia, Continue gentle rehydration Observe calcium closely It appears that patient likely need more hydration via PEG tube on outpatient basis to keep calcium and sodium a normal range Time with Patient: Greater than 30
[2019-12-10] MEDS: SODIUM CHLORIDE 0.45% 1,000 ML IV SCH ×2 (11:19→21:52)
[2019-12-10 12:32] LABS: Glucose,Whole Blood 186 mg/dL (75-99)
[2019-12-10 17:27] LABS: Glucose,Whole Blood 174 mg/dL (75-99)
[2019-12-10] MEDS: FOLIC ACID 1 MG TAB PEG/G-TUBE SCH (21:38)
[2019-12-10] MEDS: INSULIN DETEMIR (LEVEMIR) 100 UNIT/ML SYR SQ SCH (21:39)
[2019-12-10] MEDS: PRAVASTATIN SODIUM 20 MG TAB PEG/G-TUBE SCH (21:39)
[2019-12-10] MEDS: FERROUS SULFATE 325 MG TAB PO SCH (21:40)
[2019-12-10] MEDS: cloNIDine HCL 0.1 MG TAB PEG/G-TUBE SCH (21:41)
[2019-12-10] MEDS: RIVAROXABAN 10 MG TAB PO SCH (21:45)
[2019-12-11 00:16] LABS: Glucose,Whole Blood 254 mg/dL (75-99)
[2019-12-11] MEDS: INSULIN ASPART (NovoLOG) 100 UNIT/ML VIAL SQ SCH ×4 (00:33→17:44)
[2019-12-11 06:09] LABS: Glucose,Whole Blood 196 mg/dL (75-99)
[2019-12-11 06:52] LABS: Basophils % (A) 1 %; Eosinophils # (A) 0.3 k/uL (0-0.7); Eosinophils % (A) 5 %; HCT 49.2 % (34.0-46.0); HGB 15.7 gm/dL (11.4-16.0); Lymphocytes # (A) 1.6 k/uL (1.0-4.8); Lymphocytes % (A) 24 %; MCH 30.6 pg (25.0-35.0); MCV 95.8 fL (80.0-100.0); Mean Platelet Volume 13.2; Monocytes # (A) 0.4 k/uL (0-1.0); Monocytes % (A) 6 %; Neutrophils % (A) 62 %; RBC 5.13 m/uL (3.80-5.40); RDW 12.9 % (11.5-15.5); WBC 6.5 k/uL (3.8-10.6)
[2019-12-11 07:12] LABS: Platelet Count 83 k/uL (150-450)
[2019-12-11 07:14] LABS: Albumin 2.8 g/dL (3.5-5.0); Calcium 10.5 mg/dL (8.4-10.2); Potassium 3.6 mmol/L (3.5-5.1); Total Bilirubin 0.3 mg/dL (0.2-1.3); Total Protein 5.9 g/dL (6.3-8.2)
[2019-12-11] MEDS: glipiZIDE 5 MG TAB PEG/G-TUBE SCH (09:27)
[2019-12-11] MEDS: FUROSEMIDE 20 MG TAB PEG/G-TUBE SCH (09:27)
[2019-12-11] MEDS: POTASSIUM CHLORIDE ER 10 MEQ TAB.ER.PRT PO SCH (09:27)
[2019-12-11] MEDS: LISINOPRIL 10 MG TAB PEG/G-TUBE SCH (09:27)
[2019-12-11] MEDS: CHOLECALCIFEROL 1,000 UNIT TAB PEG/G-TUBE SCH (09:27)
[2019-12-11] MEDS: HYDROCHLOROTHIAZIDE 25 MG TAB PEG/G-TUBE SCH (09:27)
[2019-12-11] MEDS: METOPROLOL TARTRATE 50 MG TAB PEG/G-TUBE SCH ×2 (09:27→21:16)
[2019-12-11] MEDS: amLODIPine 5 MG TAB PEG/G-TUBE SCH (09:27)
[2019-12-11] MEDS: AZITHROMYCIN 500 MG in SODIUM CHLORIDE 0.9% 250 ML IVPB SCH (10:47)
--- NOTE | 2019-12-11 11:01 | P.PN ---
Subjective Progress Note Date: 12/11/19 Principal diagnosis: Bi basilar pneumonia Mild hypercalcemia likely related to immobility and hydrochlorothiazide Hypernatremia Altered mental status multifactorial due to above History of CVA with right hemiparesis and aphasia 12/11/2019, patient seen eval examined during the rounds labs reviewed medications reviewed overall no significant change from respiratory status re krysten stable labs reviewed B and creatinine continued to improve, calcium is normalized sodium is normalized, 12/10/2019, patient seen eval reexamined during the rounds labs reviewed hematocrit has improved with rehydration, so as the calcium level now it's 10.7 sodium is improved to 143 WELL respiratory status remains stable, 94% room air 12/09/2019, patient seen eval examined during the rounds labs reviewed medications reviewed, white cell count is normal, sodium has improved to 147, calcium is coming down with hydration is a 11 now overall respiratory status remains stable, oxygen saturation is 91-94% on 3 L This is a 79-year-old female who has a history of a phase he is and 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 patient is a [place] [facility] resident where she was noted to have progressive weakness, patient was transferred to emergency department for further evaluation, patient has been more lethargic than usual, chest x-ray revealed possible atelectasis scarring versus pneumonia, patient has been admitted into the hospital, white cell count is normal, BUN is elevated to 86 creatinine is 1.29 sugar is elevated to 359, patient noted to be hypernatremic with sodium was 154, patient noted to have mildly elevated calcium level of 11.4 with normal parathyroid level, patient is being treated for pneumonia with broad-spectrum antibiotics Objective - Vital Signs Vital signs: Vital Signs Temp 98.6 F 12/11/19 05:00 Pulse 53 L 12/11/19 05:00 Resp 20 12/11/19 05:00 BP 128/71 12/11/19 05:00 Pulse Ox 97 12/11/19 05:00 Intake & Output 12/10/19 12/11/19 12/11/19 18:59 06:59 18:59 Intake Total 552 552 Output Total 800 500 Balance -248 52 Weight 69.5 kg Intake: Oral 0 Tube Feeding 552 552 Output: Urine 800 500 Other: Voiding Method Indwelling Catheter Indwelling Catheter Indwelling Catheter - Exam - Constitutional General appearance: average body habitus, cooperative, disheveled - EENT Eyes: EOMI, poor dentition Ears: bilateral: normal - Neck Neck: normal ROM Carotids: bilateral: upstroke normal Thyroid: bilateral: normal size - Respiratory Respiratory: bilateral: diminished, negative: CTA - Cardiovascular Rhythm: irregularly irregular Heart sounds: normal: S1, S2 - Gastrointestinal General gastrointestinal: normal bowel sounds, soft - Integumentary Integumentary: normal turgor - Neurologic Right-sided weakness along with a phasic - Labs CBC & Chem 7: 12/11/19 05:59 12/11/19 05:59 Labs: Abnormal Lab Results - Last 24 Hours (Table) 12/10/19 12/10/19 12/11/19 Range/Units 12:30 17:24 00:09 Hct (34.0-46.0) % Plt Count (150-450) k/uL Carbon Dioxide (22-30) mmol/L BUN (7-17) mg/dL Glucose (74-99) mg/dL POC Glucose (mg/dL) 186 H 174 H 254 H (75-99) mg/dL Calcium (8.4-10.2) mg/dL Total Protein (6.3-8.2) g/dL Albumin (3.5-5.0) g/dL 12/11/19 12/11/19 12/11/19 Range/Units 05:59 05:59 06:06 Hct 49.2 H (34.0-46.0) % Plt Count 83 L (150-450) k/uL Carbon Dioxide 32 H (22-30) mmol/L BUN 25 H (7-17) mg/dL Glucose 203 H (74-99) mg/dL POC Glucose (mg/dL) 196 H (75-99) mg/dL Calcium 10.5 H (8.4-10.2) mg/dL Total Protein 5.9 L (6.3-8.2) g/dL Albumin 2.8 L (3.5-5.0) g/dL Assessment and Plan Assessment: Bi basilar pneumonia can be switched to antibiotics via PEG tube at the time of discharge Mild hypercalcemia likely related to immobility and hydrochlorothiazide, continued to improve Hypernatremia, continued to improve Altered mental status multifactorial due to above and due to CVA with right hemiparesis and aphasia History of CVA with right hemiparesis and aphasia Agree with discharge planning over next 24 hours Plan: Continue antibiotics Monitor aspiration precautions Hydration for both hypercalcemia and hyponatremia, Continue gentle rehydration Observe calcium closely It appears that patient likely need more hydration via PEG tube on outpatient basis to keep calcium and sodium a normal range Time with Patient: Greater than 30
[2019-12-11 11:59] LABS: Glucose,Whole Blood 158 mg/dL (75-99)
[2019-12-11] MEDS: SODIUM CHLORIDE 0.45% 1,000 ML IV SCH ×2 (13:11→21:19)
--- NOTE | 2019-12-11 15:25 | P.PN ---
Subjective Progress Note Date: 12/10/19 This is a 79-year-old female with a known history of CVA with right sided paralysis and dysphagia requiring tube feeding, atrial fibrillation anticoagulated on Xarelto, diabetes mellitus, hyperlipidemia, hypertension and vascular dementia. Patient [facility] because she had been more tired lately. Information has been obtained from patient's chart. According to the ER physician he had talked with the . There's been no evidence of any fever, chest pain or shortness of breath. No vomiting or diarrhea reported. Patient's tube feedings were started this morning. She did have evidence of acute kidney 8 injury with dehydration creatinine of 1.29. She did have a slight elevated troponin of 0.082. Chest x- ray showing chronic emphysematous change in cardiomegaly with left greater than right bibasilar atelectasis and or infiltrates. EKG shows normal sinus rhythm. Patient is lying in bed comfortably. She is nonverbal. No evidence of any di stress. 12/08/2019 patient lying in bed comfortably. She opens her eyes to her name. She is nonverbal. She's seen by pulmonary service. She's being treated for pneumonia with Rocephin and azithromycin. Still requiring 4 L of oxygen. Blood sugars have improved up to 193 with the tube feedings been started. Sodium level is coming down from 155-154. On 12/09/2019 patient was seen and examined on the medical floor she is alert and oriented 3 in no apparent distress sodium is still elevated and calcium is still elevated she is nonverbal there is no fever or chills no evidence of shortness of breath or distress On 12/10/2019 patient was seen and examined on the medical floor she is alert and oriented 3 in no apparent distress sodium is still elevated she is nonverbal and no change in condition at this. Objective - Vital Signs Vital signs: Vital Signs Temp 97.8 F 12/11/19 14:34 Pulse 54 L 12/11/19 14:34 Resp 20 12/11/19 14:34 BP 129/78 12/11/19 14:34 Pulse Ox 95 12/11/19 14:34 Intake & Output 12/10/19 12/11/19 12/11/19 18:59 06:59 18:59 Intake Total 552 552 184 Output Total 676 518 4069 Balance -248 52 -1116 Weight 69.5 kg Intake: Oral 0 Tube Feeding 552 552 184 Output: Urine 607 615 9426 Other: Voiding Method Indwelling Catheter Indwelling Catheter Indwelling Catheter - Exam Head normocephalic and atraumatic Neck supple, no JVD no goiter no adenopathy Lungs clear to auscultation bilaterally no wheezing or crackles Heart regular rate and rhythm S1-S2, no rub or gallop Abdomen is soft nontender nondistended positive bowel sounds no hepatosplenomegaly. PEG tube in place Extremities no edema, no cyanosis or clubbing Neuro more awake today nonverbal, no new focal deficit - Labs CBC & Chem 7: 12/11/19 05:59 12/11/19 05:59 Labs: Abnormal Lab Results - Last 24 Hours (Table) 12/10/19 12/11/19 12/11/19 Range/Units 17:24 00:09 05:59 Hct 49.2 H (34.0-46.0) % Plt Count 83 L (150-450) k/uL Carbon Dioxide (22-30) mmol/L BUN (7-17) mg/dL Glucose (74-99) mg/dL POC Glucose (mg/dL) 174 H 254 H (75-99) mg/dL Calcium (8.4-10.2) mg/dL Total Protein (6.3-8.2) g/dL Albumin (3.5-5.0) g/dL 12/11/19 12/11/19 12/11/19 Range/Units 05:59 06:06 11:56 Hct (34.0-46.0) % Plt Count (150-450) k/uL Carbon Dioxide 32 H (22-30) mmol/L BUN 25 H (7-17) mg/dL Glucose 203 H (74-99) mg/dL POC Glucose (mg/dL) 196 H 158 H (75-99) mg/dL Calcium 10.5 H (8.4-10.2) mg/dL Total Protein 5.9 L (6.3-8.2) g/dL Albumin 2.8 L (3.5-5.0) g/dL Assessment and Plan Assessment: 1. Altered mental status and Lethargic: Likely a metabolic encephalopathy due to Possibly related dehydration, possible pneumonia and hypernatremia. UA negative. Drug screen negative 2. Acute on chronic hypoxic and hypercapnic respiratory failure: Possibly secondary to pneumonia. Patient requiring 4 L of oxygen. Questionable pneumonia on chest x-ray. We'll add Rocephin and azithromycin. Consult pulmonary service 3. Bibasilar pneumonia: Continue Rocephin and azithromycin. Patient followed by pulmonary service. 4. Acute kidney injury due to dehydration: Improved with IV fluids 3. Hypernatremia: Sodium is 155. Continue to monitor. Continue half-normal saline at 75 mL an hour 4. Hypercalcemia: Possibly due to patient's immobility and hydrochlorothiazide. PTH level normal at 45 5. Hypoglycemia with a known history of diabetes mellitus 6. History of COPD stable 7. History of CVA with residual right-sided paralysis and dysphagia. Patient is maintained on tube feedings. 8. Elevated LFTs possibly secondary to tube feedings. LFTs are trending down. No abdominal pain noted. We'll monitor. 9. Diabetes mellitus type 2 with episode of hypoglycemia likely related to patient not started on tube feedings readily. Tube feedings have been restarted. Continue Lantus 18 units at bedtime, glipizide and sliding scale coverage. Blood sugars have improved 10. Essential hypertension: Blood pressure is been on the lower side. Blood pressures have improved with decreasing the Norvasc from 10-5 mg daily 11. Paroxysmal atrial fibrillation continue Xarelto 12. Mildly elevated troponins possibly related to renal failure. We'll monitor GI prophylaxis Pepcid and DVT prophylaxis Xarelto
--- NOTE | 2019-12-11 15:26 | P.PN ---
Subjective Progress Note Date: 12/11/19 This is a 79-year-old female with a known history of CVA with right sided paralysis and dysphagia requiring tube feeding, atrial fibrillation anticoagulated on Xarelto, diabetes mellitus, hyperlipidemia, hypertension and vascular dementia. Patient [facility] because she had been more tired lately. Information has been obtained from patient's chart. According to the ER physician he had talked with the . There's been no evidence of any fever, chest pain or shortness of breath. No vomiting or diarrhea reported. Patient's tube feedings were started this morning. She did have evidence of acute kidney 8 injury with dehydration creatinine of 1.29. She did have a slight elevated troponin of 0.082. Chest x- ray showing chronic emphysematous change in cardiomegaly with left greater than right bibasilar atelectasis and or infiltrates. EKG shows normal sinus rhythm. Patient is lying in bed comfortably. She is nonverbal. No evidence of any di stress. 12/08/2019 patient lying in bed comfortably. She opens her eyes to her name. She is nonverbal. She's seen by pulmonary service. She's being treated for pneumonia with Rocephin and azithromycin. Still requiring 4 L of oxygen. Blood sugars have improved up to 193 with the tube feedings been started. Sodium level is coming down from 155-154. On 12/09/2019 patient was seen and examined on the medical floor she is alert and oriented 3 in no apparent distress sodium is still elevated and calcium is still elevated she is nonverbal there is no fever or chills no evidence of shortness of breath or distress On 12/10/2019 patient was seen and examined on the medical floor she is alert and oriented 3 in no apparent distress sodium is still elevated she is nonverbal and no change in condition at this. On 12/11/2019 patient was seen and examined on the medical floor she is stable without any change in condition sodium is improving from 147 down to 142 she is still maintained on 0.45 IV fluid Will continue with current management will recheck in a.m. Objective - Vital Signs Vital signs: Vital Signs Temp 97.8 F 12/11/19 14:34 Pulse 54 L 12/11/19 14:34 Resp 20 12/11/19 14:34 BP 129/78 12/11/19 14:34 Pulse Ox 95 12/11/19 14:34 Intake & Output 12/10/19 12/11/19 12/11/19 18:59 06:59 18:59 Intake Total 552 552 184 Output Total 919 171 7781 Balance -248 52 -1116 Weight 69.5 kg Intake: Oral 0 Tube Feeding 552 552 184 Output: Urine 247 292 0826 Other: Voiding Method Indwelling Catheter Indwelling Catheter Indwelling Catheter - Exam Head normocephalic and atraumatic Neck supple, no JVD no goiter no adenopathy Lungs clear to auscultation bilaterally no wheezing or crackles Heart regular rate and rhythm S1-S2, no rub or gallop Abdomen is soft nontender nondistended positive bowel sounds no hepatospl enomegaly. PEG tube in place Extremities no edema, no cyanosis or clubbing Neuro more awake today nonverbal, no new focal deficit - Labs CBC & Chem 7: 12/11/19 05:59 12/11/19 05:59 Labs: Abnormal Lab Results - Last 24 Hours (Table) 12/10/19 12/11/19 12/11/19 Range/Units 17:24 00:09 05:59 Hct 49.2 H (34.0-46.0) % Plt Count 83 L (150-450) k/uL Carbon Dioxide (22-30) mmol/L BUN (7-17) mg/dL Glucose (74-99) mg/dL POC Glucose (mg/dL) 174 H 254 H (75-99) mg/dL Calcium (8.4-10.2) mg/dL Total Protein (6.3-8.2) g/dL Albumin (3.5-5.0) g/dL 12/11/19 12/11/19 12/11/19 Range/Units 05:59 06:06 11:56 Hct (34.0-46.0) % Plt Count (150-450) k/uL Carbon Dioxide 32 H (22-30) mmol/L BUN 25 H (7-17) mg/dL Glucose 203 H (74-99) mg/dL POC Glucose (mg/dL) 196 H 158 H (75-99) mg/dL Calcium 10.5 H (8.4-10.2) mg/dL Total Protein 5.9 L (6.3-8.2) g/dL Albumin 2.8 L (3.5-5.0) g/dL Assessment and Plan Assessment: 1. Altered mental status and Lethargic: Likely a metabolic encephalopathy due to Possibly related dehydration, possible pneumonia and hypernatremia. UA negative. Drug screen negative 2. Acute on chronic hypoxic and hypercapnic respiratory failure: Possibly secondary to pneumonia. Patient requiring 4 L of oxygen. Questionable pneumoni a on chest x-ray. We'll add Rocephin and azithromycin. Consult pulmonary service 3. Bibasilar pneumonia: Continue Rocephin and azithromycin. Patient followed by pulmonary service. 4. Acute kidney injury due to dehydration: Improved with IV fluids 3. Hypernatremia: Sodium is 155. Continue to monitor. Continue half-normal saline at 75 mL an hour 4. Hypercalcemia: Possibly due to patient's immobility and hydrochlorothiazide. PTH level normal at 45 5. Hypoglycemia with a known history of diabetes mellitus 6. History of COPD stable 7. History of CVA with residual right-sided paralysis and dysphagia. Patient is maintained on tube feedings. 8. Elevated LFTs possibly secondary to tube feedings. LFTs are trending down. No abdominal pain noted. We'll monitor. 9. Diabetes mellitus type 2 with episode of hypoglycemia likely related to patient not started on tube feedings readily. Tube feedings have been restarted. Continue Lantus 18 units at bedtime, glipizide and sliding scale coverage. Blood sugars have improved 10. Essential hypertension: Blood pressure is been on the lower side. Blood pressures have improved with decreasing the Norvasc from 10-5 mg daily 11. Paroxysmal atrial fibrillation continue Xarelto 12. Mildly elevated troponins possibly related to renal failure. We'll monitor GI prophylaxis Pepcid and DVT prophylaxis Xarelto
[2019-12-11 17:15] LABS: Glucose,Whole Blood 167 mg/dL (75-99)
[2019-12-11] MEDS: PRAVASTATIN SODIUM 20 MG TAB PEG/G-TUBE SCH (21:16)
[2019-12-11] MEDS: FERROUS SULFATE 325 MG TAB PO SCH (21:17)
[2019-12-11] MEDS: RIVAROXABAN 10 MG TAB PO SCH (21:17)
[2019-12-11] MEDS: cloNIDine HCL 0.1 MG TAB PEG/G-TUBE SCH (21:17)
[2019-12-11] MEDS: FOLIC ACID 1 MG TAB PEG/G-TUBE SCH (21:17)
[2019-12-11] MEDS: INSULIN DETEMIR (LEVEMIR) 100 UNIT/ML SYR SQ SCH (21:18)
[2019-12-12 00:08] LABS: Glucose,Whole Blood 178 mg/dL (75-99)
[2019-12-12] MEDS: INSULIN ASPART (NovoLOG) 100 UNIT/ML VIAL SQ SCH ×4 (00:16→17:31)
[2019-12-12 06:10] LABS: Glucose,Whole Blood 148 mg/dL (75-99)
[2019-12-12 08:19] LABS: Calcium 10.6 mg/dL (8.4-10.2); Potassium 3.5 mmol/L (3.5-5.1); Total Bilirubin 0.4 mg/dL (0.2-1.3); Total Protein 6.2 g/dL (6.3-8.2)
[2019-12-12 08:28] LABS: Basophils % (A) 0 %; Eosinophils # (A) 0.3 k/uL (0-0.7); Eosinophils % (A) 4 %; HGB 15.6 gm/dL (11.4-16.0); Lymphocytes # (A) 1.5 k/uL (1.0-4.8); Lymphocytes % (A) 22 %; MCH 30.9 pg (25.0-35.0); MCHC 32.6 g/dL (31.0-37.0); MCV 94.8 fL (80.0-100.0); Mean Platelet Volume 13.3; Monocytes # (A) 0.3 k/uL (0-1.0); Monocytes % (A) 5 %; Neutrophils # (A) 4.6 k/uL (1.3-7.7); Neutrophils % (A) 66 %; RBC 5.07 m/uL (3.80-5.40); RDW 12.8 % (11.5-15.5); WBC 6.9 k/uL (3.8-10.6)
[2019-12-12 08:35] LABS: Large Platelets Present
[2019-12-12 08:36] LABS: Platelet Count 89 k/uL (150-450)
[2019-12-12] MEDS: HYDROCHLOROTHIAZIDE 25 MG TAB PEG/G-TUBE SCH (08:38)
[2019-12-12] MEDS: CHOLECALCIFEROL 1,000 UNIT TAB PEG/G-TUBE SCH (08:38)
[2019-12-12] MEDS: FUROSEMIDE 20 MG TAB PEG/G-TUBE SCH (08:38)
[2019-12-12] MEDS: METOPROLOL TARTRATE 50 MG TAB PEG/G-TUBE SCH ×2 (08:38→20:45)
[2019-12-12] MEDS: glipiZIDE 5 MG TAB PEG/G-TUBE SCH (08:38)
[2019-12-12] MEDS: LISINOPRIL 10 MG TAB PEG/G-TUBE SCH (08:39)
[2019-12-12] MEDS: POTASSIUM CHLORIDE ER 10 MEQ TAB.ER.PRT PO SCH (08:39)
[2019-12-12] MEDS: amLODIPine 5 MG TAB PEG/G-TUBE SCH (08:41)
[2019-12-12] MEDS: AZITHROMYCIN 500 MG in SODIUM CHLORIDE 0.9% 250 ML IVPB SCH (08:44)
[2019-12-12 10:40] VITALS: BMI 28.0
--- NOTE | 2019-12-12 11:51 | P.PN ---
Subjective Progress Note Date: 12/12/19 Principal diagnosis: Bi basilar pneumonia Mild hypercalcemia likely related to immobility and hydrochlorothiazide Hypernatremia Altered mental status multifactorial due to above History of CVA with right hemiparesis and aphasia 12/12/2019, patient seen eval reexamined during the rounds labs reviewed medications reviewed overall has been doing well, renal azotemia normalized hypercalcemia also normalized, sodium is normal IV fluids can be discontinued 12/11/2019, patient seen eval examined during the rounds labs reviewed medications reviewed overall no significant change from respiratory status remains stable labs reviewed B and creatinine continued to improve, calcium is normalized sodium is normalized, 12/10/2019, patient seen eval reexamined during the rounds labs reviewed hematocrit has improved with rehydration, so as the calcium level now it's 10.7 sodium is improved to 143 WELL respiratory status remains stable, 94% room air 12/09/2019, patient seen eval examined during the rounds labs reviewed medications reviewed, white cell count is normal, sodium has improved to 147, calcium is coming down with hydration is a 11 now overall respiratory status remains stable, oxygen saturation is 91-94% on 3 L This is a 79-year-old female who has a history of a phase he is and 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 patient is a prison resident where she was noted to have progressive weakness, patient was transferred to emergency department for further evaluation, patient has been more lethargic than usual, chest x-ray revealed possible atelectasis scarring versus pneumonia, patient has been admitted into the hospital, white cell count is normal, BUN is elevated to 86 creatinine is 1.29 sugar is elevated to 359, patient noted to be hypernatre jensen with sodium was 154, patient noted to have mildly elevated calcium level of 11.4 with normal parathyroid level, patient is being treated for pneumonia with broad-spectrum antibiotics Objective - Vital Signs Vital signs: Vital Signs Temp 97.6 F 12/12/19 05:00 Pulse 56 L 12/12/19 05:00 Resp 20 12/12/19 05:00 BP 121/68 12/12/19 05:00 Pulse Ox 98 12/12/19 05:00 Intake & Output 12/11/19 12/12/19 12/12/19 18:59 06:59 18:59 Intake Total 184 0 136 Output Total 1300 850 Balance -1116 -850 136 Weight 69.5 kg Intake: Oral 0 Tube Feeding 184 136 Output: Urine 1300 850 Other: Voiding Method Indwelling Catheter Indwelling Catheter Indwelling Catheter - Exam - Constitutional General appearance: average body habitus, cooperative, disheveled - EENT Eyes: EOMI, poor dentition Ears: bilateral: normal - Neck Neck: normal ROM Carotids: bilateral: upstroke normal Thyroid: bilateral: normal size - Respiratory Respiratory: bilateral: diminished, negative: CTA - Cardiovascular Rhythm: irregularly irregular Heart sounds: normal: S1, S2 - Gastrointestinal General gastrointestinal: normal bowel sounds, soft - Integumentary Integumentary: normal turgor - Neurologic Right-sided weakness along with a phasic - Labs CBC & Chem 7: 12/12/19 07:35 12/12/19 07:35 Labs: Abnormal Lab Results - Last 24 Hours (Table) 12/11/19 12/11/19 12/12/19 Range/Units 11:56 17:08 00:06 Hct (34.0-46.0) % Plt Count (150-450) k/uL Carbon Dioxide (22-30) mmol/L BUN (7-17) mg/dL Glucose (74-99) mg/dL POC Glucose (mg/dL) 158 H 167 H 178 H (75-99) mg/dL Calcium (8.4-10.2) mg/dL Total Protein (6.3-8.2) g/dL Albumin (3.5-5.0) g/dL 12/12/19 12/12/19 12/12/19 Range/Units 06:09 07:35 07:35 Hct 48.0 H (34.0-46.0) % Plt Count 89 L (150-450) k/uL Carbon Dioxide 33 H (22-30) mmol/L BUN 21 H (7-17) mg/dL Glucose 161 H (74-99) mg/dL POC Glucose (mg/dL) 148 H (75-99) mg/dL Calcium 10.6 H (8.4-10.2) mg/dL Total Protein 6.2 L (6.3-8.2) g/dL Albumin 3.0 L (3.5-5.0) g/dL Assessment and Plan Assessment: Bi basilar pneumonia can be switched to antibiotics via PEG tube at the time of discharge Mild hypercalcemia likely related to immobility and hydrochlorothiazide, continued to improve Hypernatremia, continued to improve Altered mental status multifactorial due to above and due to CVA with right hemiparesis and aphasia History of CVA with right hemiparesis and aphasia Agree with discharge planning over next 24 hours Plan: can DC the IV fluids Encourage fluid intake Y PEG tube Continue antibiotics Monitor aspiration precautions Hydration for both hypercalcemia and hyponatremia, Continue gentle rehydration Observe calcium closely It appears that patient likely need more hydration via PEG tube on outpatient basis to keep calcium and sodium a normal range Time with Patient: Greater than 30
[2019-12-12 12:22] LABS: Glucose,Whole Blood 143 mg/dL (75-99)
--- NOTE | 2019-12-12 13:29 | P.PN ---
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 Patient presented to the emergency room from the alf because she had been more tired lately. Information has been obtained from patient's chart. According to the ER physician he had talked with the . There's been no evidence of any fever, chest pain or shortness of breath. No vomiting or diarrhea reported. Patient's tube feedings were started this morning. She did have evidence of acute kidney 8 injury with dehydration creatinine of 1.29. She did have a slight elevated troponin of 0.082. Chest x- ray showing chronic emphysematous change in cardiomegaly with left greater than right bibasilar atelectasis and or infiltrates. EKG shows normal sinus rhythm. Patient is lying in bed comfortably. She is nonverbal. No evidence of any di stress. 12/08/2019 patient lying in bed comfortably. She opens her eyes to her name. She is nonverbal. She's seen by pulmonary service. She's being treated for pneumonia with Rocephin and azithromycin. Still requiring 4 L of oxygen. Blood sugars have improved up to 193 with the tube feedings been started. Sodium level is coming down from 155-154. On 12/09/2019 patient was seen and examined on the medical floor she is alert and oriented 3 in no apparent distress sodium is still elevated and calcium is still elevated she is nonverbal there is no fever or chills no evidence of shortness of breath or distress On 12/10/2019 patient was seen and examined on the medical floor she is alert and oriented 3 in no apparent distress sodium is still elevated she is nonverbal and no change in condition at this. On 12/11/2019 patient was seen and examined on the medical floor she is stable without any change in condition sodium is improving from 147 down to 142 she is still maintained on 0.45 IV fluid Will continue with current management will recheck in a.m. On 12/12/2019 patient was seen and examined on the medical floor she is non- verbal she responds to stimuli but closes her eyes within few seconds. she is stable without any change in condition sodium is improving down to 141 today she is still maintained on 0.45 IV fluid Will continue with current management will recheck in a.m. Objective - Vital Signs Vital signs: Vital Signs Temp 97.6 F 12/12/19 05:00 Pulse 56 L 12/12/19 05:00 Resp 20 12/12/19 05:00 BP 121/68 12/12/19 05:00 Pulse Ox 98 12/12/19 05:00 Intake & Output 12/11/19 12/12/19 12/12/19 18:59 06:59 18:59 Intake Total 184 0 136 Output Total 1300 850 Balance -1116 -850 136 Weight 69 kg 69.5 kg Intake: Oral 0 Tube Feeding 184 136 Output: Urine 1300 850 Other: Voiding Method Indwelling Catheter Indwelling Catheter Indwelling Catheter - Exam Head normocephalic and atraumatic Neck supple, no JVD no goiter no adenopathy Lungs clear to auscultation bilaterally no wheezing or crackles Heart regular rate and rhythm S1-S2, no rub or gallop Abdomen is soft nontender nondistended positive bowel sounds no hepatosplenomegaly. PEG tube in place Extremities no edema, no cyanosis or clubbing Neuro more awake today nonverbal, no new focal deficit - Labs CBC & Chem 7: 12/12/19 07:35 12/12/19 07:35 Labs: Abnormal Lab Results - Last 24 Hours (Table) 12/11/19 12/12/19 12/12/19 Range/Units 17:08 00:06 06:09 Hct (34.0-46.0) % Plt Count (150-450) k/uL Carbon Dioxide (22-30) mmol/L BUN (7-17) mg/dL Glucose (74-99) mg/dL POC Glucose (mg/dL) 167 H 178 H 148 H (75-99) mg/dL Calcium (8.4-10.2) mg/dL Total Protein (6.3-8.2) g/dL Albumin (3.5-5.0) g/dL 12/12/19 12/12/19 12/12/19 Range/Units 07:35 07:35 12:20 Hct 48.0 H (34.0-46.0) % Plt Count 89 L (150-450) k/uL Carbon Dioxide 33 H (22-30) mmol/L BUN 21 H (7-17) mg/dL Glucose 161 H (74-99) mg/dL POC Glucose (mg/dL) 143 H (75-99) mg/dL Calcium 10.6 H (8.4-10.2) mg/dL Total Protein 6.2 L (6.3-8.2) g/dL Albumin 3.0 L (3.5-5.0) g/dL Assessment and Plan Assessment: 1. Altered mental status and Lethargic: Likely a metabolic encephalopathy due to Possibly related dehydration, possible pneumonia and hypernatremia. UA negative. Drug screen negative 2. Acute on chronic hypoxic and hypercapnic respiratory failure: Possibly secondary to pneumonia. Patient requiring 4 L of oxygen. Questionable pneumonia on chest x-ray. We'll add Rocephin and azithromycin. Consult pulmon sg service 3. Bibasilar pneumonia: Continue Rocephin and azithromycin. Patient followed by pulmonary service. 4. Acute kidney injury due to dehydration: Improved with IV fluids 3. Hypernatremia: Sodium is 155. Continue to monitor. Continue half-normal saline at 75 mL an hour 4. Hypercalcemia: Possibly due to patient's immobility and hydrochlorothiazide. PTH level normal at 45 5. Hypoglycemia with a known history of diabetes mellitus 6. History of COPD stable 7. History of CVA with residual right-sided paralysis and dysphagia. Patient is maintained on tube feedings. 8. Elevated LFTs possibly secondary to tube feedings. LFTs are trending down. No abdominal pain noted. We'll monitor. 9. Diabetes mellitus type 2 with episode of hypoglycemia likely related to patient not started on tube feedings readily. Tube feedings have been restarted. Continue Lantus 18 units at bedtime, glipizide and sliding scale coverage. Blood sugars have improved 10. Essential hypertension: Blood pressure is been on the lower side. Blood pressures have improved with decreasing the Norvasc from 10-5 mg daily 11. Paroxysmal atrial fibrillation continue Xarelto 12. Mildly elevated troponins possibly related to renal failure. We'll monitor GI prophylaxis Pepcid and DVT prophylaxis Xarelto
[2019-12-12 16:52] LABS: Glucose,Whole Blood 167 mg/dL (75-99)
[2019-12-12] MEDS: SODIUM CHLORIDE 0.45% 1,000 ML IV SCH (17:02)
[2019-12-12] MEDS: FERROUS SULFATE 325 MG TAB PO SCH (20:45)
[2019-12-12] MEDS: cloNIDine HCL 0.1 MG TAB PEG/G-TUBE SCH (20:45)
[2019-12-12] MEDS: INSULIN DETEMIR (LEVEMIR) 100 UNIT/ML SYR SQ SCH (20:45)
[2019-12-12] MEDS: RIVAROXABAN 10 MG TAB PO SCH (20:45)
[2019-12-12] MEDS: FOLIC ACID 1 MG TAB PEG/G-TUBE SCH (20:45)
[2019-12-12] MEDS: PRAVASTATIN SODIUM 20 MG TAB PEG/G-TUBE SCH (20:45)
[2019-12-13 00:04] LABS: Glucose,Whole Blood 190 mg/dL (75-99)
[2019-12-13] MEDS: INSULIN ASPART (NovoLOG) 100 UNIT/ML VIAL SQ SCH ×4 (00:08→18:38)
[2019-12-13] MEDS: SODIUM CHLORIDE 0.45% 1,000 ML IV SCH ×2 (05:40→12:31)
[2019-12-13 05:54] LABS: Glucose,Whole Blood 200 mg/dL (75-99)
[2019-12-13 07:11] LABS: ALT 24 U/L (4-34); AST 25 U/L (14-36); African American GFR (CKD) >90 (>60 ml/min/1.73 sqM); Alkaline Phosphatase 88 U/L (38-126); Anion Gap 5 mmol/L; Blood Urea Nitrogen 22 mg/dL (7-17); Calcium 10.6 mg/dL (8.4-10.2); Carbon Dioxide 30 mmol/L (22-30); Chloride 102 mmol/L (98-107); Glucose 191 mg/dL (74-99); Non-African American GFR(CKD) 82 (>60 ml/min/1.73 sqM); Potassium 3.9 mmol/L (3.5-5.1); Sodium 137 mmol/L (137-145); Total Bilirubin 0.3 mg/dL (0.2-1.3); Total Protein 6.1 g/dL (6.3-8.2)
[2019-12-13 07:30] LABS: Basophils % (A) 0 %; Eosinophils # (A) 0.3 k/uL (0-0.7); Eosinophils % (A) 4 %; HCT 49.1 % (34.0-46.0); HGB 15.9 gm/dL (11.4-16.0); Lymphocytes # (A) 1.2 k/uL (1.0-4.8); Lymphocytes % (A) 19 %; MCH 30.7 pg (25.0-35.0); MCHC 32.4 g/dL (31.0-37.0); MCV 94.8 fL (80.0-100.0); Mean Platelet Volume 12.3; Monocytes # (A) 0.4 k/uL (0-1.0); Monocytes % (A) 6 %; Neutrophils # (A) 4.2 k/uL (1.3-7.7); Neutrophils % (A) 68 %; RBC 5.18 m/uL (3.80-5.40); RDW 12.9 % (11.5-15.5); WBC 6.2 k/uL (3.8-10.6)
[2019-12-13 07:32] LABS: Platelet Count 99 k/uL (150-450)
[2019-12-13] MEDS: POTASSIUM CHLORIDE ER 10 MEQ TAB.ER.PRT PO SCH (08:55)
[2019-12-13] MEDS: glipiZIDE 5 MG TAB PEG/G-TUBE SCH (08:55)
[2019-12-13] MEDS: CHOLECALCIFEROL 1,000 UNIT TAB PEG/G-TUBE SCH (08:55)
[2019-12-13] MEDS: FUROSEMIDE 20 MG TAB PEG/G-TUBE SCH (08:58)
--- NOTE | 2019-12-13 09:37 | P.PN ---
Subjective Progress Note Date: 12/13/19 Principal diagnosis: Bi basilar pneumonia Mild hypercalcemia likely related to immobility and hydrochlorothiazide Hypernatremia Altered mental status multifactorial due to above History of CVA with right hemiparesis and aphasia 12/13/2019, patient seen and evaluated examined overall respiratory status remains stable, remains afebrile, on supplemental oxygen 3 L nasal cannula saturation 98% hemodynamic status stable 12/12/2019, patient seen eval reexamined during the rounds labs reviewed medications reviewed overall has been doing well, renal azotemia normalized hypercalcemia also normalized, sodium is normal IV fluids can be discontinued 12/11/2019, patient seen eval examined during the rounds labs reviewed medications reviewed overall no significant change from respiratory status remains stable labs reviewed B and creatinine continued to improve, calcium is normalized sodium is normalized, 12/10/2019, patient seen eval reexamined during the rounds labs reviewed hematocrit has improved with rehydration, so as the calcium level now it's 10.7 sodium is improved to 143 WELL respiratory status remains stable, 94% room air 12/09/2019, patient seen eval examined during the rounds labs reviewed medications reviewed, white cell count is normal, sodium has improved to 147, calcium is coming down with hydration is a 11 now overall respiratory status remains stable, oxygen saturation is 91-94% on 3 L This is a 79-year-old female who has a history of a phase he is and 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 patient is a long term resident where she was n oted to have progressive weakness, patient was transferred to emergency department for further evaluation, patient has been more lethargic than usual, chest x-ray revealed possible atelectasis scarring versus pneumonia, patient has been admitted into the hospital, white cell count is normal, BUN is elevated to 86 creatinine is 1.29 sugar is elevated to 359, patient noted to be hypernatremic with sodium was 154, patient noted to have mildly elevated calcium level of 11.4 with normal parathyroid level, patient is being treated for pneumonia with broad-spectrum antibiotics Objective - Vital Signs Vital signs: Vital Signs Temp 97.3 F L 12/13/19 05:00 Pulse 55 L 12/13/19 05:00 Resp 20 12/13/19 05:00 BP 102/63 12/13/19 05:00 Pulse Ox 98 12/13/19 05:00 Intake & Output 12/12/19 12/13/19 12/13/19 18:59 06:59 18:59 Intake Total 136 0 Output Total 800 400 Balance -664 -400 Weight 69.5 kg 75 kg Intake: Oral 0 Tube Feeding 136 Output: Urine 800 400 Other: Voiding Method Indwelling Catheter Indwelling Catheter # Bowel Movements 2 - Exam - Constitutional General appearance: average body habitus, cooperative, disheveled - EENT Eyes: EOMI, poor dentition Ears: bilateral: normal - Neck Neck: normal ROM Carotids: bilateral: upstroke normal Thyroid: bilateral: normal size - Respiratory Respiratory: bilateral: diminished, negative: CTA - Cardiovascular Rhythm: irregularly irregular Heart sounds: normal: S1, S2 - Gastrointestinal General gastrointestinal: normal bowel sounds, soft - Integumentary Integumentary: normal turgor - Neurologic Right-sided weakness along with a phasic - Labs CBC & Chem 7: 12/13/19 06:42 12/13/19 06:42 Labs: Abnormal Lab Results - Last 24 Hours (Table) 12/12/19 12/12/19 12/13/19 Range/Units 12:20 16:48 00:02 Hct (34.0-46.0) % BUN (7-17) mg/dL Glucose (74-99) mg/dL POC Glucose (mg/dL) 143 H 167 H 190 H (75-99) mg/dL Calcium (8.4-10.2) mg/dL Total Protein (6.3-8.2) g/dL Albumin (3.5-5.0) g/dL 12/13/19 12/13/19 12/13/19 Range/Units 05:53 06:42 06:42 Hct 49.1 H (34.0-46.0) % BUN 22 H (7-17) mg/dL Glucose 191 H (74-99) mg/dL POC Glucose (mg/dL) 200 H (75-99) mg/dL Calcium 10.6 H (8.4-10.2) mg/dL Total Protein 6.1 L (6.3-8.2) g/dL Albumin 3.0 L (3.5-5.0) g/dL Assessment and Plan Assessment: Bi basilar pneumonia can be switched to antibiotics via PEG tube at the time of discharge Mild hypercalcemia likely related to immobility and hydrochlorothiazide, continued to improve Hypernatremia, continued to improve Altered mental status multifactorial due to above and due to CVA with right hemiparesis and aphasia History of CVA with right hemiparesis and aphasia Agree with discharge planning over next 24 hours Plan: can DC the IV fluids Encourage fluid intake Y PEG tube Continue antibiotics Monitor aspiration precautions Hydration for both hypercalcemia and hyponatremia, Continue gentle rehydration Observe calcium closely It appears that patient likely need more hydration via PEG tube on outpatient basis to keep calcium and sodium a normal range Time with Patient: Greater than 30
[2019-12-13 09:51] LABS: Large Platelets Present
[2019-12-13] MEDS: AZITHROMYCIN 500 MG in SODIUM CHLORIDE 0.9% 250 ML IVPB SCH (10:10)
[2019-12-13] MEDS: LISINOPRIL 10 MG TAB PEG/G-TUBE SCH (10:11)
[2019-12-13] MEDS: amLODIPine 5 MG TAB PEG/G-TUBE SCH (10:11)
[2019-12-13] MEDS: METOPROLOL TARTRATE 50 MG TAB PEG/G-TUBE SCH ×2 (10:11→21:10)
[2019-12-13] MEDS: HYDROCHLOROTHIAZIDE 25 MG TAB PEG/G-TUBE SCH (10:11)
[2019-12-13 11:43] LABS: Glucose,Whole Blood 168 mg/dL (75-99)
[2019-12-13 17:33] LABS: Glucose,Whole Blood 172 mg/dL (75-99)
--- NOTE | 2019-12-13 17:44 | P.PN ---
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 Patient presented to the emergency room from the alf because she had been more tired lately. Information has been obtained from patient's chart. According to the ER physician he had talked with the . There's been no evidence of any fever, chest pain or shortness of breath. No vomiting or diarrhea reported. Patient's tube feedings were started this morning. She did have evidence of acute kidney 8 injury with dehydration creatinine of 1.29. She did have a slight elevated troponin of 0.082. Chest x- ray showing chronic emphysematous change in cardiomegaly with left greater than right bibasilar atelectasis and or infiltrates. EKG shows normal sinus rhythm. Patient is lying in bed comfortably. She is nonverbal. No evidence of any di stress. 12/08/2019 patient lying in bed comfortably. She opens her eyes to her name. She is nonverbal. She's seen by pulmonary service. She's being treated for pneumonia with Rocephin and azithromycin. Still requiring 4 L of oxygen. Blood sugars have improved up to 193 with the tube feedings been started. Sodium level is coming down from 155-154. On 12/09/2019 patient was seen and examined on the medical floor she is alert and oriented 3 in no apparent distress sodium is still elevated and calcium is still elevated she is nonverbal there is no fever or chills no evidence of shortness of breath or distress On 12/10/2019 patient was seen and examined on the medical floor she is alert and oriented 3 in no apparent distress sodium is still elevated she is nonverbal and no change in condition at this. On 12/11/2019 patient was seen and examined on the medical floor she is stable without any change in condition sodium is improving from 147 down to 142 she is still maintained on 0.45 IV fluid Will continue with current management will recheck in a.m. On 12/12/2019 patient was seen and examined on the medical floor she is non- verbal she responds to stimuli but closes her eyes within few seconds. she is stable without any change in condition sodium is improving down to 141 today she is still maintained on 0.45 IV fluid Will continue with current management will recheck in a.m. On 12/13/2019 patient was seen and examined on the medical floor she is more alert and responsive today she is answering questions by yes or no her sodium has improved and is in normal range at this time at 137 at this time will discontinue IV fluid and increase free water intake through PEG tube will recheck labs tomorrow if stable patient can be discharged back to the alf Objective - Vital Signs Vital signs: Vital Signs Temp 97.3 F L 12/13/19 05:00 Pulse 55 L 12/13/19 05:00 Resp 20 12/13/19 05:00 BP 102/63 12/13/19 05:00 Pulse Ox 98 12/13/19 05:00 Intake & Output 12/12/19 12/13/19 12/13/19 18:59 06:59 18:59 Intake Total 136 0 Output Total 800 400 Balance -664 -400 Weight 69.5 kg 75 kg Intake: Oral 0 Tube Feeding 136 Output: Urine 800 400 Other: Voiding Method Indwelling Catheter Indwelling Catheter Indwelling Catheter # Bowel Movements 2 - Exam Head normocephalic and atraumatic Neck supple, no JVD no goiter no adenopathy Lungs clear to auscultation bilaterally no wheezing or crackles Heart regular rate and rhythm S1-S2, no rub or gallop Abdomen is soft nontender nondistended positive bowel sounds no hepatosplenomegaly. PEG tube in place Extremities no edema, no cyanosis or clubbing Neuro more awake today nonverbal, no new focal deficit - Labs CBC & Chem 7: 12/13/19 06:42 12/13/19 06:42 Labs: Abnormal Lab Results - Last 24 Hours (Table) 12/12/19 12/12/19 12/13/19 Range/Units 12:20 16:48 00:02 Hct (34.0-46.0) % Plt Count (150-450) k/uL BUN (7-17) mg/dL Glucose (74-99) mg/dL POC Glucose (mg/dL) 143 H 167 H 190 H (75-99) mg/dL Calcium (8.4-10.2) mg/dL Total Protein (6.3-8.2) g/dL Albumin (3.5-5.0) g/dL 12/13/19 12/13/19 12/13/19 Range/Units 05:53 06:42 06:42 Hct 49.1 H (34.0-46.0) % Plt Count 99 L (150-450) k/uL BUN 22 H (7-17) mg/dL Glucose 191 H (74-99) mg/dL POC Glucose (mg/dL) 200 H (75-99) mg/dL Calcium 10.6 H (8.4-10.2) mg/dL Total Protein 6.1 L (6.3-8.2) g/dL Albumin 3.0 L (3.5-5.0) g/dL 12/13/19 Range/Units 11:35 Hct (34.0-46.0) % Plt Count (150-450) k/uL BUN (7-17) mg/dL Glucose (74-99) mg/dL POC Glucose (mg/dL) 168 H (75-99) mg/dL Calcium (8.4-10.2) mg/dL Total Protein (6.3-8.2) g/dL Albumin (3.5-5.0) g/dL Assessment and Plan Assessment: 1. Altered mental status and Lethargic: Likely a metabolic encephalopathy due to Possibly related dehydration, possible pneumonia and hypernatremia. UA negative. Drug screen negative 2. Acute on chronic hypoxic and hypercapnic respiratory failure: Possibly secondary to pneumonia. Patient requiring 4 L of oxygen. Questionable pneumonia on chest x-ray. We'll add Rocephin and azithromycin. Consult pulmona ry service 3. Bibasilar pneumonia: Continue Rocephin and azithromycin. Patient followed by pulmonary service. 4. Acute kidney injury due to dehydration: Improved with IV fluids 3. Hypernatremia: Sodium is 155. Continue to monitor. Continue half-normal saline at 75 mL an hour 4. Hypercalcemia: Possibly due to patient's immobility and hydrochlorothiazide. PTH level normal at 45 5. Hypoglycemia with a known history of diabetes mellitus 6. History of COPD stable 7. History of CVA with residual right-sided paralysis and dysphagia. Patient is maintained on tube feedings. 8. Elevated LFTs possibly secondary to tube feedings. LFTs are trending down. No abdominal pain noted. We'll monitor. 9. Diabetes mellitus type 2 with episode of hypoglycemia likely related to patient not started on tube feedings readily. Tube feedings have been restarted. Continue Lantus 18 units at bedtime, glipizide and sliding scale coverage. Blood sugars have improved 10. Essential hypertension: Blood pressure is been on the lower side. Blood pressures have improved with decreasing the Norvasc from 10-5 mg daily 11. Paroxysmal atrial fibrillation continue Xarelto 12. Mildly elevated troponins possibly related to renal failure. We'll monitor GI prophylaxis Pepcid and DVT prophylaxis Xarelto
[2019-12-13] MEDS: PRAVASTATIN SODIUM 20 MG TAB PEG/G-TUBE SCH (21:10)
[2019-12-13] MEDS: RIVAROXABAN 10 MG TAB PO SCH (21:11)
[2019-12-13] MEDS: FERROUS SULFATE 325 MG TAB PO SCH (21:11)
[2019-12-13] MEDS: cloNIDine HCL 0.1 MG TAB PEG/G-TUBE SCH (21:11)
[2019-12-13] MEDS: INSULIN DETEMIR (LEVEMIR) 100 UNIT/ML SYR SQ SCH (21:11)
[2019-12-13] MEDS: FOLIC ACID 1 MG TAB PEG/G-TUBE SCH (21:11)
[2019-12-14 00:10] LABS: Glucose,Whole Blood 199 mg/dL (75-99)
[2019-12-14] MEDS: INSULIN ASPART (NovoLOG) 100 UNIT/ML VIAL SQ SCH ×2 (00:14→06:04)
[2019-12-14 00:16] VITALS: TEMP 98.4
[2019-12-14 05:10] VITALS: BP 126/63; PULSE 58; RESP 16
[2019-12-14 06:02] LABS: Glucose,Whole Blood 173 mg/dL (75-99)
[2019-12-14] MEDS: FUROSEMIDE 20 MG TAB PEG/G-TUBE SCH (07:51)
[2019-12-14] MEDS: CHOLECALCIFEROL 1,000 UNIT TAB PEG/G-TUBE SCH (07:52)
[2019-12-14] MEDS: amLODIPine 5 MG TAB PEG/G-TUBE SCH (07:52)
[2019-12-14] MEDS: LISINOPRIL 10 MG TAB PEG/G-TUBE SCH (07:52)
[2019-12-14] MEDS: glipiZIDE 5 MG TAB PEG/G-TUBE SCH (07:52)
[2019-12-14] MEDS: METOPROLOL TARTRATE 50 MG TAB PEG/G-TUBE SCH (07:52)
[2019-12-14] MEDS: POTASSIUM CHLORIDE ER 10 MEQ TAB.ER.PRT PO SCH (07:52)
[2019-12-14] MEDS: HYDROCHLOROTHIAZIDE 25 MG TAB PEG/G-TUBE SCH (07:52)
[2019-12-14 08:06] LABS: Basophils % (A) 1 %; Eosinophils # (A) 0.3 k/uL (0-0.7); Eosinophils % (A) 5 %; HCT 47.9 % (34.0-46.0); HGB 15.7 gm/dL (11.4-16.0); Lymphocytes # (A) 1.4 k/uL (1.0-4.8); Lymphocytes % (A) 21 %; MCH 31.1 pg (25.0-35.0); MCHC 32.7 g/dL (31.0-37.0); MCV 95.2 fL (80.0-100.0); Mean Platelet Volume 11.8; Monocytes # (A) 0.4 k/uL (0-1.0); Monocytes % (A) 7 %; Neutrophils # (A) 4.2 k/uL (1.3-7.7); Neutrophils % (A) 64 %; RBC 5.03 m/uL (3.80-5.40); RDW 13.1 % (11.5-15.5); WBC 6.6 k/uL (3.8-10.6)
[2019-12-14 08:09] LABS: Platelet Count 92 k/uL (150-450)
[2019-12-14 08:15] LABS: ALT 22 U/L (4-34); AST 34 U/L (14-36); African American GFR (CKD) >90 (>60 ml/min/1.73 sqM); Alkaline Phosphatase 77 U/L (38-126); Anion Gap 5 mmol/L; Blood Urea Nitrogen 23 mg/dL (7-17); Calcium 10.4 mg/dL (8.4-10.2); Carbon Dioxide 30 mmol/L (22-30); Chloride 104 mmol/L (98-107); Glucose 176 mg/dL (74-99); Non-African American GFR(CKD) 83 (>60 ml/min/1.73 sqM); Sodium 139 mmol/L (137-145); Total Bilirubin 0.7 mg/dL (0.2-1.3); Total Protein 6.3 g/dL (6.3-8.2)
[2019-12-14 08:26] LABS: Potassium 4.4 mmol/L (3.5-5.1)
[2019-12-14] MEDS ORDERED: AZITHROMYCIN 500 MG TAB PEG/G-TUBE SCH (09:00)
--- NOTE | 2019-12-14 10:09 | P.DS ---
Providers Date of admission: 12/06/19 13:55 Expected date of discharge: 12/14/19 Attending physician: Yvonne Dominguez Consults: 12/07/19 15:07 Consult Physician Routine Consulting Provider: Dimitry Kamara Consult Reason/Comments: pneumonia Do you want consulting provider notified?: Yes Primary care physician: Yvonne Alberto [facility] Course: Diagnoses on discharge: 1. Altered mental status and Lethargic: Likely a metabolic encephalopathy due to Possibly related dehydration, possible pneumonia and hypernatremia. UA negative. Drug screen negative 2. Acute on chronic hypoxic and hypercapnic respiratory failure: Possibly secondary to pneumonia. Patient requiring 4 L of oxygen. Questionable pneumonia on chest x-ray. We'll add Rocephin and azithromycin. Consult pulmonary service 3. Bibasilar pneumonia: Continue Rocephin and azithromycin. Patient followed by pulmonary service. continue Zithromax thru peg tube 500 mg for 5 more days. 4. Acute kidney injury due to dehydration: Improved with IV fluids 3. Hypernatremia: Sodium is 155. Continue to monitor. Continue half-normal saline at 75 mL an hour. at the time of discharge sodium 139 patient should receive 45 cc free water every 4 hours thru her peg tube 4. Hypercalcemia: Possibly due to patient's immobility and hydrochlorothiazide. PTH level normal at 45 5. Hypoglycemia with a known history of diabetes mellitus 6. History of COPD stable 7. History of CVA with residual right-sided paralysis and dysphagia. Patient is maintained on tube feedings. 8. Elevated LFTs possibly secondary to tube feedings. LFTs are trending down. No abdominal pain noted. We'll monitor. 9. Diabetes mellitus type 2 with episode of hypoglycemia likely related to patient not started on tube feedings readily. Tube feedings have been restarted. Continue Lantus 18 units at bedtime, glipizide and sliding scale coverage. Blood sugars have improved 10. Essential hypertension: Blood pressure is been on the lower side. Blood pressures have improved with decreasing the Norvasc from 10-5 mg daily 11. Paroxysmal atrial fibrillation continue Xarelto 12. Mildly elevated troponins possibly related to renal failure. 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 Patient presented to the emergency room from the skilled nursing because she had been more tired lately. Information has been obtained from patient's chart. According to the ER physician he had talked with the . There's been no evidence of any fever, chest pain or shortness of breath. No vomiting or diarrhea reported. Patient's tube feedings were started this morning. She did have evidence of acute kidney 8 injury with dehydration creatinine of 1.29. She did have a slight elevated troponin of 0.082. Chest x- ray showing chronic emphysematous change in cardiomegaly with left greater than right bibasilar atelectasis and or infiltrates. EKG shows normal sinus rhythm. Patient is lying in bed comfortably. She is nonverbal. No evidence of any distress. 12/08/2019 patient lying in bed comfortably. She opens her eyes to her name. She is nonverbal. She's seen by pulmonary service. She's being treated for pneumonia with Rocephin and azithromycin. Still requiring 4 L of oxygen. Blood sugars have improved up to 193 with the tube feedings been started. Sodium level is coming down from 155-154. On 12/09/2019 patient was seen and examined on the medical floor she is alert and oriented 3 in no apparent distress sodium is still elevated and calcium is still elevated she is nonverbal there is no fever or chills no evidence of shortness of breath or distress On 12/10/2019 patient was seen and examined on the medical floor she is alert and oriented 3 in no apparent distress sodium is still elevated she is nonverbal and no change in condition at this. On 12/11/2019 patient was seen and examined on the medical floor she is stable without any change in condition sodium is improving from 147 down to 142 she is still maintained on 0.45 IV fluid Will continue with current management will recheck in a.m. On 12/12/2019 patient was seen and examined on the medical floor she is non- verbal she responds to stimuli but closes her eyes within few seconds. she is stable without any change in condition sodium is improving down to 141 today she is still maintained on 0.45 IV fluid Will continue with current management will recheck in a.m. On 12/13/2019 patient was seen and examined on the medical floor she is more alert and responsive today she is answering questions by yes or no her sodium has improved and is in normal range at this time at 137 at this time will discontinue IV fluid and increase free water intake through PEG tube will recheck labs tomorrow if stable patient can be discharged back to the skilled nursing Plan - Discharge Summary Discharge Rx Participant: No New Discharge Prescriptions: New Azithromycin [Zithromax] 500 mg PEG/G-TUBE DAILY tab Continue amLODIPine [Norvasc] 10 mg PEG/G-TUBE QAM Furosemide [Lasix] 20 mg PEG/G-TUBE DAILY Pravastatin Sodium [Pravachol] 10 mg PEG/G-TUBE HS Lisinopril [Zestril] 10 mg PEG/G-TUBE QAM Folic Acid 0.8 mg PEG/G-TUBE HS Insulin Glargine [Lantus] 18 unit SQ HS Metoprolol Tartrate [Lopressor] 50 mg PEG/G-TUBE BID cloNIDine HCL [Catapres] 0.1 mg PEG/G-TUBE HS Ferrous Sulfate [Iron (65 MG Elemental)] 325 mg PEG/G-TUBE HS Cholecalciferol (Vitamin D3) [Vitamin D3] 2,000 unit PEG/G-TUBE DAILY glipiZIDE [Glucotrol] 5 mg PEG/G-TUBE DAILY Rivaroxaban [Xarelto] 10 mg PEG/G-TUBE HS INSULIN LISPRO (humaLOG) [humaLOG] 2 units SQ AC-TID Potassium Chloride Oral Liquid 10 meq PEG/G-TUBE DAILY Discontinued Hydrochlorothiazide [Hydrodiuril] 25 mg PEG/G-TUBE DAILY Discharge Medication List amLODIPine [Norvasc] 10 mg PEG/G-TUBE QAM 01/24/16 [History] Furosemide [Lasix] 20 mg PEG/G-TUBE DAILY 03/31/16 [History] Lisinopril [Zestril] 10 mg PEG/G-TUBE QAM 07/22/17 [History] Pravastatin Sodium [Pravachol] 10 mg PEG/G-TUBE HS 07/22/17 [History] Folic Acid 0.8 mg PEG/G-TUBE HS 02/23/19 [History] Insulin Glargine [Lantus] 18 unit SQ HS 02/23/19 [History] Metoprolol Tartrate [Lopressor] 50 mg PEG/G-TUBE BID 02/23/19 [History] Cholecalciferol (Vitamin D3) [Vitamin D3] 2,000 unit PEG/G-TUBE DAILY 10/05/19 [History] Ferrous Sulfate [Iron (65 MG Elemental)] 325 mg PEG/G-TUBE HS 10/05/19 [History] cloNIDine HCL [Catapres] 0.1 mg PEG/G-TUBE HS 10/05/19 [History] glipiZIDE [Glucotrol] 5 mg PEG/G-TUBE DAILY 10/05/19 [History] Rivaroxaban [Xarelto] 10 mg PEG/G-TUBE HS 10/06/19 [History] INSULIN LISPRO (humaLOG) [humaLOG] 2 units SQ AC-TID 11/07/19 [History] Potassium Chloride Oral Liquid 10 meq PEG/G-TUBE DAILY 11/07/19 [History] Azithromycin [Zithromax] 500 mg PEG/G-TUBE DAILY tab 12/14/19 [Rx] Follow up Appointment(s)/Referral(s): Yvonne Dominguez MD [Primary Care Provider] - 1-2 days
== END 2019-12-14 12:33 | DRG 193 ==
LOC: EC 11:09 → 3SCARD 13:55 → 6NMEDSUR 12-07 20:42
PROVIDERS: ADMIT Internal Medicine; ATTEND Internal Medicine
PROC: 3E0G76Z Introduction of Nutritional Substance into Upper GI, Via Natural or Artificial Opening (ICD-10-PCS; principal; 2019-12-07)
DX: J18.9 Pneumonia, unspecified organism (principal); J96.21 Acute and chronic respiratory failure with hypoxia; J96.22 Acute and chronic respiratory failure with hypercapnia; R40.2212 Coma scale, best verbal response, none, at arrival to emergency department; G93.41 Metabolic encephalopathy; N17.9 Acute kidney failure, unspecified; E87.0 Hyperosmolality and hypernatremia; I69.351 Hemiplegia and hemiparesis following cerebral infarction affecting right dominant side; J44.0 Chronic obstructive pulmonary disease with (acute) lower respiratory infection; I11.9 Hypertensive heart disease without heart failure; F01.50 Vascular dementia, unspecified severity, without behavioral disturbance, psychotic disturbance, mood disturbance, and anxiety; I69.320 Aphasia following cerebral infarction; E86.0 Dehydration; I48.0 Paroxysmal atrial fibrillation; E78.5 Hyperlipidemia, unspecified; M19.90 Unspecified osteoarthritis, unspecified site; R13.10 Dysphagia, unspecified; R32 Unspecified urinary incontinence; R15.9 Full incontinence of feces; H40.9 Unspecified glaucoma; E83.52 Hypercalcemia; R40.2362 Coma scale, best motor response, obeys commands, at arrival to emergency department; T50.2X5A Adverse effect of carbonic-anhydrase inhibitors, benzothiadiazides and other diuretics, initial encounter; R40.2132 Coma scale, eyes open, to sound, at arrival to emergency department; E11.649 Type 2 diabetes mellitus with hypoglycemia without coma; I69.391 Dysphagia following cerebral infarction; Z71.3 Dietary counseling and surveillance; Z79.899 Other long term (current) drug therapy; Z79.4 Long term (current) use of insulin; Z79.01 Long term (current) use of anticoagulants; Z93.1 Gastrostomy status; Z90.710 Acquired absence of both cervix and uterus; Z87.891 Personal history of nicotine dependence
CPT/HCPCS: 36415; 71046; 80053; 80306; 81003; 83970; 84484; 85025; 85027; 85610; 85730; 93005; 96360; 96361; 99285

== ENCOUNTER 2019-12-28 17:25 | Inpatient (IN) | payer MEDICARE, OTHER ==
[~2019-12-28 17:25] MED LIST changes: -LACTATED RINGERS 1,000 ML IV SCH; +MIDAZOLAM 1 MG/ML 5 ML VIAL ONE; +PHENYLEPHRINE 10 MG/ML VIAL ONE; +PROPOFOL 10 MG/ML 20 ML VIAL IV ONE; +SUCCINYLCHOLINE CHLORIDE VIAL 200 MG/10 ML VIAL IV ONE
[2019-12-28] MEDS ORDERED: ACETAMINOPHEN TAB 500 MG TAB PO STA (17:36)
--- NOTE | 2019-12-28 17:51 | ED ---
General Adult HPI - General Chief complaint: Shortness of Breath Stated complaint: SOB/OSIRIS Time Seen by Provider: 12/28/19 17:31 Source: EMS, RN notes reviewed, old records reviewed Mode of arrival: EMS Limitations: altered mental status - History of Present Illness Initial comments: 79-year-old female presented from residential with lethargy, confusion, hypoxia. Patient is unable to contribute to the history. She is found to be hypoxic in the 80s upon arrival. According to EMS she has had a cough for approximately 2 weeks. She is coming from residential where she was found to be febrile. - Related Data Home Medications Medication Instructions Recorded Confirmed amLODIPine [Norvasc] 10 mg PEG/G-TUBE DAILY 01/24/16 12/28/19 Furosemide [Lasix] 20 mg PEG/G-TUBE DAILY 03/31/16 12/28/19 Lisinopril [Zestril] 10 mg PEG/G-TUBE DAILY 07/22/17 12/28/19 Pravastatin Sodium [Pravachol] 10 mg PEG/G-TUBE HS@199907/22/17 12/28/19 Folic Acid 0.8 mg PEG/G-TUBE HS@199902/23/19 12/28/19 Metoprolol Tartrate [Lopressor] 50 mg PEG/G-TUBE BID 02/23/19 12/28/19 Ferrous Sulfate [Iron (65 MG 325 mg PEG/G-TUBE HS@199910/05/19 12/28/19 Elemental)] cloNIDine HCL [Catapres] 0.1 mg PEG/G-TUBE HS@199910/05/19 12/28/19 glipiZIDE [Glucotrol] 5 mg PEG/G-TUBE DAILY 10/05/19 12/28/19 Rivaroxaban [Xarelto] 10 mg PEG/G-TUBE HS@199910/06/19 12/28/19 Potassium Chloride Oral Liquid 10 meq PEG/G-TUBE DAILY 11/07/19 12/28/19 Cholecalciferol [Vitamin D3 (25 2,000 unit PEG/G-TUBE DAILY 12/28/19 12/28/19 Mcg = 1000 Iu)] Insulin Glargine,Hum.rec.anlog 18 unit SQ HS@199912/28/19 12/28/19 [Lantus Solostar] Insulin Lispro [humaLOG Kwikpen] 2 unit SQ AC-TID@0700,1100,16 12/28/19 12/28/19 Insulin Lispro [humaLOG Kwikpen] See Protocol SQ ACHS 12/28/19 12/28/19 Allergies Allergy/AdvReac Type Severity Reaction Status Date / Time No Known Allergies Allergy Verified 12/28/19 17:40 Review of Systems ROS Statement: Those systems with pertinent positive or pertinent negative responses have been documented in the HPI. ROS Other: All systems not noted in ROS Statement are negative. 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 History of Any Multi-Drug Resistant Organisms: None Reported Past Surgical History: Hysterectomy Additional Past Surgical History / Comment(s): not known at ECF,peg insertion Past Anesthesia/Blood Transfusion Reactions: No Reported Reaction, Unable to Obtain Additional Past Anesthesia/Blood Transfusion Reaction / Comment(s): spouse thinks no problems that he knows of(poor historian), no info at ECF Past Psychological History: No Psychological Hx Reported Smoking Status: Former smoker Past Alcohol Use History: None Reported Past Drug Use History: None Reported - Past Family History Mother Family Medical History: Unable to Obtain Additional Family Medical History / Comment(s): no info at ECF Father History Unknown: Yes General Exam Limitations: altered mental status General appearance: lethargic, in distress Head exam: Present: atraumatic, normocephalic Eye exam: Present: normal appearance, PERRL ENT exam: Present: mucous membranes dry Neck exam: Present: normal inspection. Absent: tenderness, meningismus Respiratory exam: Present: respiratory distress, rhonchi, accessory muscle use, decreased breath sounds Cardiovascular Exam: Present: regular rate, normal rhythm GI/Abdominal exam: Present: soft. Absent: distended, tenderness, guarding, rebound Extremities exam: Present: normal capillary refill. Absent: pedal edema Back exam: Absent: CVA tenderness (R), CVA tenderness (L) Neurological exam: Absent: alert Skin exam: Present: warm, dry, intact. Absent: cyanosis, diaphoretic Course Vital Signs 12/28/19 12/28/19 17:33 18:55 Temperature 101 F H 100.0 F H Pulse Rate 82 89 Respiratory 18 22 Rate Blood Pressure 119/63 125/67 O2 Sat by Pulse 91 L 96 Oximetry EKG Findings - EKG Comments: EKG Findings:: EKG: Normal sinus rhythm, ventricular rate of 86, AZ interval 136, QRS duration 78, QTC [address] segment elevation. Medical Decision Making - Medical Decision Making 79-year-old female presented from residential with fever, dyspnea, hypoxia. Upon arrival patient is hypoxic in the 80s, this does respond well to supplemental oxygen via nasal cannula. There is high suspicion for coronavirus. Chest x-ray shows a left basilar opacity. She has PCR testing which is positive for coronavirus in the emergency department. She has several additional lab values consistent with disc disease. She is started on hydroxy chloroquine, at this time she is stable for a monitored bed on stepdown, oxygenation is mid to high 90s on nasal cannula. I spoke with Dr. Dominguez who will admit, both infectious disease and pulmonology had been placed on consult. - Lab Data Result diagrams: 12/28/19 17:53 12/28/19 17:53 Lab Results 12/28/19 12/28/19 12/28/19 Range/Units 17:53 17:53 17:53 WBC 5.3 (3.8-10.6) k/uL RBC 5.44 H (3.80-5.40) m/uL Hgb 16.6 H (11.4-16.0) gm/dL Hct 52.6 H (34.0-46.0) % MCV 96.7 (80.0-100.0) fL MCH 30.6 (25.0-35.0) pg MCHC 31.6 (31.0-37.0) g/dL RDW 13.9 (11.5-15.5) % Plt Count 107 L (150-450) k/uL Neutrophils % 70 % Lymphocytes % 18 % Monocytes % 8 % Eosinophils % 2 % Basophils % 1 % Neutrophils # 3.7 (1.3-7.7) k/uL Lymphocytes # 0.9 L (1.0-4.8) k/uL Monocytes # 0.4 (0-1.0) k/uL Eosinophils # 0.1 (0-0.7) k/uL Basophils # 0.1 (0-0.2) k/uL VBG pH (7.31-7.41) VBG pCO2 (37-51) mmHg VBG HCO3 (24-28) mmol/L Sodium 148 H (137-145) mmol/L Potassium (3.5-5.1) mmol/L Chloride 110 H (98-107) mmol/L Carbon Dioxide 33 H (22-30) mmol/L Anion Gap 5 mmol/L BUN 45 H (7-17) mg/dL Creatinine 0.83 (0.52-1.04) mg/dL Est GFR (CKD-EPI)AfAm 77 (>60 ml/min/1.73 sqM) Est GFR (CKD-EPI)NonAf 67 (>60 ml/min/1.73 sqM) Glucose 357 H (74-99) mg/dL Plasma Lactic Acid Bora 2.1 H* (0.7-2.0) mmol/L Calcium 10.2 (8.4-10.2) mg/dL Magnesium 2.6 H (1.6-2.3) mg/dL Total Bilirubin 0.8 (0.2-1.3) mg/dL AST 59 H (14-36) U/L ALT 61 H (4-34) U/L Alkaline Phosphatase 102 (38-126) U/L Lactate Dehydrogenase 1053 H (313-618) U/L C-Reactive Protein 10.5 H (<10.0) mg/L Total Protein 7.3 (6.3-8.2) g/dL Albumin 3.6 (3.5-5.0) g/dL Coronavirus (PCR) (Not Detectd) Influenza Type A RNA (Not Detectd) Influenza Type B (PCR) (Not Detectd) RSV (PCR) (Negative) 12/28/19 12/28/19 Range/Units 17:53 18:15 WBC (3.8-10.6) k/uL RBC (3.80-5.40) m/uL Hgb (11.4-16.0) gm/dL Hct (34.0-46.0) % MCV (80.0-100.0) fL MCH (25.0-35.0) pg MCHC (31.0-37.0) g/dL RDW (11.5-15.5) % Plt Count (150-450) k/uL Neutrophils % % Lymphocytes % % Monocytes % % Eosinophils % % Basophils % % Neutrophils # (1.3-7.7) k/uL Lymphocytes # (1.0-4.8) k/uL Monocytes # (0-1.0) k/uL Eosinophils # (0-0.7) k/uL Basophils # (0-0.2) k/uL VBG pH 7.44 H (7.31-7.41) VBG pCO2 49 (37-51) mmHg VBG HCO3 33 H (24-28) mmol/L Sodium (137-145) mmol/L Potassium (3.5-5.1) mmol/L Chloride (98-107) mmol/L Carbon Dioxide (22-30) mmol/L Anion Gap mmol/L BUN (7-17) mg/dL Creatinine (0.52-1.04) mg/dL Est GFR (CKD-EPI)AfAm (>60 ml/min/1.73 sqM) Est GFR (CKD-EPI)NonAf (>60 ml/min/1.73 sqM) Glucose (74-99) mg/dL Plasma Lactic Acid Bora (0.7-2.0) mmol/L Calcium (8.4-10.2) mg/dL Magnesium (1.6-2.3) mg/dL Total Bilirubin (0.2-1.3) mg/dL AST (14-36) U/L ALT (4-34) U/L Alkaline Phosphatase (38-126) U/L Lactate Dehydrogenase (313-618) U/L C-Reactive Protein (<10.0) mg/L Total Protein (6.3-8.2) g/dL Albumin (3.5-5.0) g/dL Coronavirus (PCR) Detected A (Not Detectd) Influenza Type A RNA Not Detected (Not Detectd) Influenza Type B (PCR) Not Detected (Not Detectd) RSV (PCR) (Negative) Critical Care Time Critical Care Time: Yes Total Critical Care Time: 35 Disposition Clinical Impression: Weakness, COVID-19 virus detected, Hypoxia Disposition: ADMITTED IP TO THIS [facility] Condition: Serious Is patient prescribed a controlled substance at d/c from ED?: No Referrals: Yvonne Dominguez MD [Primary Care Provider] - 1-2 days Decision to Admit Reason: Admit from EC Decision Date: 12/28/19 Decision Time: 19:15
--- NOTE | 2019-12-28 18:12 | XR ---
EXAMINATION TYPE: XR chest 1V portable DATE OF EXAM: 12/28/2019 Comparison: 12/06/2019 Clinical History: 79-year-old female shortness of breath, Suspected COVID-19 pneumonia Findings: Leftward patient rotation alters the normal cardiac and mediastinal contours. Heart mildly enlarged. Mild diffuse interstitial densities unchanged. Bilateral hilar prominence likely relates to large glenda tral pulmonary arteries, possible pulmonary arterial hypertension. There is left basilar opacity obsc uring the left hemidiaphragm. Impression: Left basilar opacity sparing the left hemidiaphragm. Underlying infiltrate here not excluded.
[2019-12-28 18:27] LABS: VBG PH 7.44 (7.31-7.41)
[2019-12-28 18:41] LABS: Basophils # (A) 0.1 k/uL (0-0.2); Basophils % (A) 1 %; Eosinophils # (A) 0.1 k/uL (0-0.7); Eosinophils % (A) 2 %; HCT 52.6 % (34.0-46.0); HGB 16.6 gm/dL (11.4-16.0); Lymphocytes # (A) 0.9 k/uL (1.0-4.8); Lymphocytes % (A) 18 %; MCH 30.6 pg (25.0-35.0); MCHC 31.6 g/dL (31.0-37.0); MCV 96.7 fL (80.0-100.0); Mean Platelet Volume 11.2; Monocytes # (A) 0.4 k/uL (0-1.0); Monocytes % (A) 8 %; Neutrophils # (A) 3.7 k/uL (1.3-7.7); Neutrophils % (A) 70 %; Platelet Count 107 k/uL (150-450); RBC 5.44 m/uL (3.80-5.40); RDW 13.9 % (11.5-15.5); WBC 5.3 k/uL (3.8-10.6)
[2019-12-28 18:48] LABS: Albumin 3.6 g/dL (3.5-5.0); C Reactive Protein 10.5 mg/L (<10.0); Calcium 10.2 mg/dL (8.4-10.2); Magnesium 2.6 mg/dL (1.6-2.3); Total Bilirubin 0.8 mg/dL (0.2-1.3); Total Protein 7.3 g/dL (6.3-8.2)
[2019-12-28 18:58] LABS: SARS-CoV-2 RNA Rapid Abbott Detected (Not Detectd)
[2019-12-28] MEDS ORDERED: NALOXONE 0.4 MG/ML 1 ML VIAL IV PRN (19:11)
[2019-12-28 19:16] LABS: Partial Thromboplastin Time 19.9 sec (22.0-30.0)
[2019-12-28 19:17] LABS: D-Dimer 1.13 mg/L FEU (<0.60)
[2019-12-28] MEDS: SODIUM CHLORIDE 0.9% 1,000 ML IV SCH (19:27)
[2019-12-28] MEDS: ALBUTEROL HFA INHALER INHALATION SCH (20:40)
[2019-12-28] MEDS: HYDROXYCHLOROQUINE SULFATE 200 MG TAB PO SCH (22:11)
[2019-12-28] MEDS ORDERED: NON FORMULARY DRUG (Folic Acid [Folic Acid] 0.8 MG) PEG/G-TUBE SCH (22:41)
[2019-12-28 22:58] LABS: Glucose,Whole Blood 297 mg/dL (75-99)
[2019-12-28] MEDS: FERROUS SULFATE 325 MG TAB PO SCH (22:59)
[2019-12-28] MEDS: PRAVASTATIN SODIUM 20 MG TAB PEG/G-TUBE SCH (23:05)
[2019-12-28] MEDS: cloNIDine HCL 0.1 MG TAB PEG/G-TUBE SCH (23:05)
[2019-12-28] MEDS: INSULIN ASPART (NovoLOG) 100 UNIT/ML VIAL SQ SCH (23:05)
[2019-12-28] MEDS: RIVAROXABAN 10 MG TAB PO SCH (23:05)
[2019-12-28 23:43] LABS: Ferritin 360.5 ng/mL (10.0-291.0)
[2019-12-29] MEDS: INSULIN ASPART (NovoLOG) 100 UNIT/ML VIAL SQ SCH ×7 (06:09→21:29)
[2019-12-29 06:17] LABS: Glucose,Whole Blood 209 mg/dL (75-99)
[2019-12-29 07:40] LABS: Calcium 9.8 mg/dL (8.4-10.2); Potassium 4.3 mmol/L (3.5-5.1)
[2019-12-29 08:15] LABS: Basophils # (A) 0.1 k/uL (0-0.2); Basophils % (A) 1 %; Eosinophils % (A) 1 %; HCT 49.3 % (34.0-46.0); HGB 15.5 gm/dL (11.4-16.0); Hypochromasia Slight; Lymphocytes # (A) 0.9 k/uL (1.0-4.8); Lymphocytes % (A) 19 %; MCH 30.5 pg (25.0-35.0); MCHC 31.5 g/dL (31.0-37.0); MCV 96.9 fL (80.0-100.0); Mean Platelet Volume 12.2; Monocytes # (A) 0.4 k/uL (0-1.0); Monocytes % (A) 9 %; Neutrophils # (A) 3.3 k/uL (1.3-7.7); Neutrophils % (A) 69 %; RBC 5.09 m/uL (3.80-5.40); RDW 13.8 % (11.5-15.5); WBC 4.8 k/uL (3.8-10.6)
[2019-12-29 08:32] LABS: Large Platelets Present; Platelet Count 94 k/uL (150-450)
[2019-12-29] MEDS: ALBUTEROL HFA INHALER INHALATION SCH ×4 (08:51→19:21)
[2019-12-29] MEDS ORDERED: FUROSEMIDE 20 MG TAB PEG/G-TUBE SCH (09:00)
[2019-12-29] MEDS: SODIUM CHLORIDE 0.9% 1,000 ML IV SCH (10:35)
[2019-12-29] MEDS: HYDROXYCHLOROQUINE SULFATE 200 MG TAB PO SCH ×2 (10:44→21:28)
[2019-12-29] MEDS: CHOLECALCIFEROL 1,000 UNIT TAB PEG/G-TUBE SCH (10:44)
[2019-12-29] MEDS: METOPROLOL TARTRATE 50 MG TAB PEG/G-TUBE SCH ×2 (10:45→21:28)
[2019-12-29] MEDS: LISINOPRIL 10 MG TAB PEG/G-TUBE SCH (10:45)
[2019-12-29] MEDS: amLODIPine 10 MG TAB PEG/G-TUBE SCH (10:45)
[2019-12-29] MEDS: glipiZIDE 5 MG TAB PEG/G-TUBE SCH (10:45)
[2019-12-29] MEDS: POTASSIUM CHLORIDE ER 10 MEQ TAB.ER.PRT PO SCH (10:46)
[2019-12-29 12:08] LABS: Glucose,Whole Blood 168 mg/dL (75-99)
[2019-12-29] MEDS: AZITHROMYCIN 500 MG in SODIUM CHLORIDE 0.9% 250 ML IVPB SCH (12:35)
[2019-12-29] MEDS: DEXTROSE 5% IN WATER 1,000 ML IV SCH (12:44)
[2019-12-29] MEDS: SODIUM CHLORIDE 0.45% 1,000 ML IV SCH (12:45)
--- NOTE | 2019-12-29 13:24 | P.CNPUL ---
History of Present Illness Consult date: 12/29/19 Requesting physician: Loi Powers Chief complaint: COVID 19 positive History of present illness: This is an 79-year-old -Guy[place] female patient who follows with Dr. Dominguez on an outpatient basis and resides and an extended care facility. The patient is unable to contribute to her history and there is no family member present at her bedside and her history was obtained from her chart. 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 She presented to the emergency department here at [facility] via EMS with a persistent cough which has been present for around 2 weeks. It has also been reported that she was found to be febrile and hypoxic with her oxygen saturations in the 80s. In the emergency department her T-max temperature was 101F, and her oxygen saturation saturations were 91% on 4 L nasal cannula. A 12-lead EKG was completed which showed normal sinus rhythm heart rate 86 BPM. A chest x-ray was completed which demonstrated a left basilar opacity obscuring the left hemidiaphragm. Initial lab results showed a WBC count 5.3, Hgb 16.6, platelets 107, d-dimer 1.13, sodium 148, chloride 110, CO2 33, BUN 45, creatinine 0.83, glucose 357, ferritin 360.5, AST 59, ALT 61, and her LDH was 1053. She was tested for influenza a and B which were not detected and she was also tested for COVID 19 which was a positive result. Currently the patient is laying in bed on the cardiac stepdown unit, she is in n o acute distress. Oxygen saturations 96% on 3 L nasal cannula. IV fluids are infusing at 0.9% normal saline 75 mL per hour. She is non-verbal. Review of Systems Review of systems was completed and obtained from her chart. Constitutional: Reports fever Cardiovascular: Reports leg edema (trace) Respiratory: Reports cough Gastrointestinal: Denies constipation, Denies diarrhea, Denies jaundice Genitourinary: Reports mixed incontinence Musculoskeletal: Reports gait dysfunction, Reports limitation of motion, Reports muscle weakness Integumentary: Denies rash, Denies sores Neurological: Reports gait dysfunction Endocrine: Reports high blood sugars Hematologic/Lymphatic: Denies lymphadenopathy Past Medical History Past Medical History: Atrial Fibrillation, Asthma, COPD, CVA/TIA, Diabetes Mellitus, Hyperlipidemia, Hypertension, Osteoarthritis (OA) Additional Past Medical History / Comment(s): currently having leakage and tenderness around peg tube site,hx stroke with weakness of legs, unable to bear wt- ECF uses yael lift/wheelchair, hypoxia, [id number] feeding tube, bowel and urine incontinence (uses depends), slurred speach,anemia,glau coma,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 History of Any Multi-Drug Resistant Organisms: None Reported Past Surgical History: Hysterectomy Additional Past Surgical History / Comment(s): not known at [facility],peg insertion Past Anesthesia/Blood Transfusion Reactions: No Reported Reaction, Unable to Obtain Additional Past Anesthesia/Blood Transfusion Reaction / Comment(s): spouse thinks no problems that he knows of(poor historian), no info at ECF Past Psychological History: No Psychological Hx Reported Smoking Status: Former smoker Past Alcohol Use History: None Reported Additional Past Alcohol Use History / Comment(s): STARTED SMOKING AT AGE 17,SMOKED LESS THAN 1 PPD, QUIT 2001. Past Drug Use History: None Reported - Past Family History Mother Family Medical History: Unable to Obtain Additional Family Medical History / Comment(s): no info at [facility] Father History Unknown: Yes Medications and Allergies Home Medications Medication Instructions Recorded Confirmed Type amLODIPine [Norvasc] 10 mg PEG/G-TUBE DAILY 01/24/16 12/28/19 History Furosemide [Lasix] 20 mg PEG/G-TUBE DAILY 03/31/16 12/28/19 History Lisinopril [Zestril] 10 mg PEG/G-TUBE DAILY 07/22/17 12/28/19 History Pravastatin Sodium [Pravachol] 10 mg PEG/G-TUBE HS@199907/22/17 12/28/19 History Folic Acid 0.8 mg PEG/G-TUBE HS@199902/23/19 12/28/19 History Metoprolol Tartrate [Lopressor] 50 mg PEG/G-TUBE BID 02/23/19 12/28/19 History Ferrous Sulfate [Iron (65 MG 325 mg PEG/G-TUBE HS@199910/05/19 12/28/19 History Elemental)] cloNIDine HCL [Catapres] 0.1 mg PEG/G-TUBE HS@199910/05/19 12/28/19 History glipiZIDE [Glucotrol] 5 mg PEG/G-TUBE DAILY 10/05/19 12/28/19 History Rivaroxaban [Xarelto] 10 mg PEG/G-TUBE HS@199910/06/19 12/28/19 History Potassium Chloride Oral Liquid 10 meq PEG/G-TUBE DAILY 11/07/19 12/28/19 History Cholecalciferol [Vitamin D3 (25 2,000 unit PEG/G-TUBE DAILY 12/28/19 12/28/19 History Mcg = 1000 Iu)] Insulin Glargine,Hum.rec.anlog 18 unit SQ HS@199912/28/19 12/28/19 History [Lantus Solostar] Insulin Lispro [humaLOG Kwikpen] 2 unit SQ AC-TID@0700,1100,16 12/28/19 12/28/19 History Insulin Lispro [humaLOG Kwikpen] See Protocol SQ ACHS 12/28/19 12/28/19 History Allergies Allergy/AdvReac Type Severity Reaction Status Date / Time No Known Allergies Allergy Verified 12/28/19 17:40 Physical Exam Vitals: Vital Signs Temp Pulse Pulse Resp BP BP Pulse Ox 12/29/19 08:00 98.8 F 80 14 120/65 97 12/29/19 04:00 97.9 F 76 18 110/66 98 12/29/19 00:00 96.9 F L 74 20 119/58 96 12/28/19 20:49 97 F L 78 20 114/64 97 12/28/19 20:30 98.5 F 78 20 120/70 93 L 12/28/19 20:00 83 125/67 12/28/19 19:30 98.2 F 82 20 125/67 93 L 12/28/19 18:55 100.0 F H 89 22 125/67 96 12/28/19 18:30 81 119/63 12/28/19 18:00 97 12/28/19 17:33 101 F H 82 18 119/63 91 L 12/28/19 17:30 124/89 Intake and Output 12/28/19 12/29/19 12/29/19 22:59 06:59 14:59 Intake Total 0 Output Total 0 Balance 0 Intake: Oral 0 Output: Urine 0 Other: # Voids 1 Weight 95.254 kg 96.5 kg - Constitutional 79-year-old female patient who is lethargic but does open up her eyes to verbal stimuli. General appearance: disheveled, no acute distress, obese - EENT Mucous membranes dry Eyes: PERRLA, poor dentition - Neck Neck: no lymphadenopathy, no stridor - Respiratory Scattered rhonchi throughout, diminished to her left lower lobe. Respirations are symmetrical and nonlabored. - Cardiovascular Regular rhythm and rate. S1 and S2 present, negative for S3, gallop or murmur. Trace edema to her bilateral lower extremities. - Gastrointestinal Abdomen soft and nondistended. Active bowel sounds present in all 4 abdominal quadrants. PEG tube is in place. General gastrointestinal: no organomegaly, no rigid - Integumentary Skin is warm and dry. No clubbing or cyanosis is present. Integumentary: no rash - Neurologic Open eyes with verbal stimuli. - Musculoskeletal Musculoskeletal: generalized weakness Results - Laboratory Findings CBC and BMP: 12/29/19 06:56 12/29/19 06:56 PT/INR, D-dimer PT 10.0 sec (9.0-12.0) 12/28/19 17:53 INR 1.0 (<1.2) 12/28/19 17:53 D-Dimer 1.13 mg/L FEU (<0.60) H 12/28/19 17:53 Abnormal lab findings: Abnormal Labs 12/28/19 12/28/19 12/28/19 17:53 17:53 17:53 RBC 5.44 H Hgb 16.6 H Hct 52.6 H Plt Count 107 L Lymphocytes # 0.9 L APTT 19.9 L D-Dimer 1.13 H VBG pH VBG HCO3 Sodium 148 H Chloride 110 H Carbon Dioxide 33 H BUN 45 H Glucose 357 H POC Glucose (mg/dL) Plasma Lactic Acid Bora Magnesium 2.6 H Ferritin 360.5 H AST 59 H ALT 61 H Lactate Dehydrogenase 1053 H C-Reactive Protein 10.5 H Coronavirus (PCR) 12/28/19 12/28/19 12/28/19 17:53 17:53 18:15 RBC Hgb Hct Plt Count Lymphocytes # APTT D-Dimer VBG pH 7.44 H VBG HCO3 33 H Sodium Chloride Carbon Dioxide BUN Glucose POC Glucose (mg/dL) Plasma Lactic Acid Bora 2.1 H* Magnesium Ferritin AST ALT Lactate Dehydrogenase C-Reactive Protein Coronavirus (PCR) Detected A 12/28/19 12/29/19 12/29/19 22:56 06:16 06:56 RBC Hgb Hct 49.3 H Plt Count 94 L Lymphocytes # 0.9 L APTT D-Dimer VBG pH VBG HCO3 Sodium Chloride Carbon Dioxide BUN Glucose POC Glucose (mg/dL) 297 H 209 H Plasma Lactic Acid Bora Magnesium Ferritin AST ALT Lactate Dehydrogenase C-Reactive Protein Coronavirus (PCR) 12/29/19 12/29/19 06:56 12:04 RBC Hgb Hct Plt Count Lymphocytes # APTT D-Dimer VBG pH VBG HCO3 Sodium 151 H Chloride 115 H Carbon Dioxide 34 H BUN 39 H Glucose 220 H POC Glucose (mg/dL) 168 H Plasma Lactic Acid Bora Magnesium Ferritin AST ALT Lactate Dehydrogenase C-Reactive Protein Coronavirus (PCR) - Diagnostic Findings Chest x-ray: report reviewed, image reviewed Assessment and Plan Assessment: 1. Acute hypoxic respiratory failure related to acute COVID 19 pneumonitis 2. Fever, related to Covid 19 pneumonitis 3. Thrombocytopenia 4. Altered mental status multifactorial due to above 5. Hypernatremia 6. History of chronic obstructive pulmonary disease 7. 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 Elevated LFTs, possibly secondary to Covid 19 9. Insulin-dependent diabetes mellitus type 2 with hyperglycemia on admission with a blood sugar of 357 10. History of essential hypertension 11. Hyperlipidemia 12. Chronic paroxysmal atrial fibrillation on Xarelto on outpatient for anticoagulation Plan: 1. The patient was seen and examined at her bedside on the cardiac stepdown unit with Dr. Figueroa. 2. Discontinue 0.9 normal saline and start D5 W at 75 mL per hour for her hyponatremia. 3. Consult dietitian for tube feeding recommendations and add free water flushes every 4 hours 200 mL. 4. Repeat chest x-ray in the a.m. 5. Repeat CBC, CMP, and COVID 19 markers. 6. She is positive for Covid 19, maintaining drop precautions. 7. Start azithromycin 500 mg IV piggyback daily and Zosyn 3.375 g IV piggyback every 8 hours. 8. Continue hydroxychloroquine per protocol for Covid 19. 9. The patient will be transferred to the care of Dr. Dimitry Kamara for pulmonary management as the patient has been followed by him in the past. The patient was seen and examined with Dr. Figueroa, the plan and assessment were discussed. Time with Patient: Greater than 30
--- NOTE | 2019-12-29 15:43 | P.HPIM ---
History of Present Illness H&P Date: 12/29/19 Chief Complaint: Cough fever and mental status changes Soledad Enriquez, is an 79-year-old female who resides at a [place] at this time will was noticed to have worsening mental status and persistent cough, patient started having elevated temperature up to 101 at that point she was sent to [facility] emergency room she had testing for influenza A and B which were negative she also had an instant test for Covid 19 which was positive she was admitted to telemetry floor she was started on IV Zithromax pulmonary and infectious disease consultation were requested. Patient also had evidence of dehydration with hypernatremia elevated sodium level at 151. Patient has a known history of multiple medical problems including history of stroke with right sided paralysis, history of aspiration patient has a PEG tube for feeding, history of insulin-dependent diabetes mellitus, history of hypertension, history of hyperlipidemia, and history of paroxysmal atrial fibrillation. On presentation patient had a temperature of 101 pulse of 82 respiration 18 blo od pressure 119/63 and pulse ox of 91% on 4 L nasal cannula. White blood count was 4.8 chest x-ray revealed evidence of left basilar opacity. 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 History of Any Multi-Drug Resistant Organisms: None Reported Past Surgical History: Hysterectomy Additional Past Surgical History / Comment(s): not known at ECF,peg insertion Past Anesthesia/Blood Transfusion Reactions: No Reported Reaction, Unable to Obtain Additional Past Anesthesia/Blood Transfusion Reaction / Comment(s): spouse thinks no problems that he knows of(poor historian), no info at ECF Past Psychological History: No Psychological Hx Reported Smoking Status: Former smoker Past Alcohol Use History: None Reported Additional Past Alcohol Use History / Comment(s): STARTED SMOKING AT AGE 17,SMOKED LESS THAN 1 PPD, QUIT 2001. Past Drug Use History: None Reported - Past Family History Mother Family Medical History: Unable to Obtain Additional Family Medical History / Comment(s): no info at F Father History Unknown: Yes Medications and Allergies Home Medications Medication Instructions Recorded Confirmed Type amLODIPine [Norvasc] 10 mg PEG/G-TUBE DAILY 01/24/16 12/28/19 History Furosemide [Lasix] 20 mg PEG/G-TUBE DAILY 03/31/16 12/28/19 History Lisinopril [Zestril] 10 mg PEG/G-TUBE DAILY 07/22/17 12/28/19 History Pravastatin Sodium [Pravachol] 10 mg PEG/G-TUBE HS@199907/22/17 12/28/19 History Folic Acid 0.8 mg PEG/G-TUBE HS@199902/23/19 12/28/19 History Metoprolol Tartrate [Lopressor] 50 mg PEG/G-TUBE BID 02/23/19 12/28/19 History Ferrous Sulfate [Iron (65 MG 325 mg PEG/G-TUBE HS@199910/05/19 12/28/19 History Elemental)] cloNIDine HCL [Catapres] 0.1 mg PEG/G-TUBE HS@199910/05/19 12/28/19 History glipiZIDE [Glucotrol] 5 mg PEG/G-TUBE DAILY 10/05/19 12/28/19 History Rivaroxaban [Xarelto] 10 mg PEG/G-TUBE HS@199910/06/19 12/28/19 History Potassium Chloride Oral Liquid 10 meq PEG/G-TUBE DAILY 11/07/19 12/28/19 History Cholecalciferol [Vitamin D3 (25 2,000 unit PEG/G-TUBE DAILY 12/28/19 12/28/19 History Mcg = 1000 Iu)] Insulin Glargine,Hum.rec.anlog 18 unit SQ HS@199912/28/19 12/28/19 History [Lantus Solostar] Insulin Lispro [humaLOG Kwikpen] 2 unit SQ AC-TID@0700,1100,16 12/28/19 12/28/19 History Insulin Lispro [humaLOG Kwikpen] See Protocol SQ ACHS 12/28/19 12/28/19 History Allergies Allergy/AdvReac Type Severity Reaction Status Date / Time No Known Allergies Allergy Verified 12/28/19 17:40 Physical Exam Vitals: Vital Signs Temp Pulse Pulse Resp BP BP Pulse Ox 12/29/19 12:00 98.6 F 100 12 124/67 12/29/19 08:00 98.8 F 80 14 120/65 97 12/29/19 04:00 97.9 F 76 18 110/66 98 12/29/19 00:00 96.9 F L 74 20 119/58 96 12/28/19 20:49 97 F L 78 20 114/64 97 12/28/19 20:30 98.5 F 78 20 120/70 93 L 12/28/19 20:00 83 125/67 12/28/19 19:30 98.2 F 82 20 125/67 93 L 12/28/19 18:55 100.0 F H 89 22 125/67 96 12/28/19 18:30 81 119/63 12/28/19 18:00 97 12/28/19 17:33 101 F H 82 18 119/63 91 L 12/28/19 17:30 124/89 Intake and Output 12/29/19 12/29/19 12/29/19 06:59 14:59 22:59 Intake Total 0 Output Total 0 Balance 0 Intake: Oral 0 Output: Urine 0 Other: # Voids 1 Weight 96.5 kg 96.5 kg In general patient is somnolent nonverbal in no apparent distress HEENT head normocephalic and atraumatic Neck is supple no JVD no goiter no lymphadenopathy Chest exam reveals a few scattered crackles no wheezing Cardiac exam reveals regular heart sounds no gallops no murmurs Abdomen is soft nontender no organomegaly with normal bowel sounds Extremity exam reveals no edema no cyanosis or clubbing Results CBC & Chem 7: 12/29/19 06:56 12/29/19 06:56 Labs: Abnormal Lab Results - Last 24 Hours (Table) 12/28/19 12/28/19 12/28/19 Range/Units 17:53 17:53 17:53 RBC 5.44 H (3.80-5.40) m/uL Hgb 16.6 H (11.4-16.0) gm/dL Hct 52.6 H (34.0-46.0) % Plt Count 107 L (150-450) k/uL Lymphocytes # 0.9 L (1.0-4.8) k/uL APTT 19.9 L (22.0-30.0) sec D-Dimer 1.13 H (<0.60) mg/L FEU VBG pH (7.31-7.41) VBG HCO3 (24-28) mmol/L Sodium 148 H (137-145) mmol/L Chloride 110 H (98-107) mmol/L Carbon Dioxide 33 H (22-30) mmol/L BUN 45 H (7-17) mg/dL Glucose 357 H (74-99) mg/dL POC Glucose (mg/dL) (75-99) mg/dL Plasma Lactic Acid Bora (0.7-2.0) mmol/L Magnesium 2.6 H (1.6-2.3) mg/dL Ferritin 360.5 H (10.0-291.0) ng/mL AST 59 H (14-36) U/L ALT 61 H (4-34) U/L Lactate Dehydrogenase 1053 H (313-618) U/L C-Reactive Protein 10.5 H (<10.0) mg/L Coronavirus (PCR) (Not Detectd) 12/28/19 12/28/19 12/28/19 Range/Units 17:53 17:53 18:15 RBC (3.80-5.40) m/uL Hgb (11.4-16.0) gm/dL Hct (34.0-46.0) % Plt Count (150-450) k/uL Lymphocytes # (1.0-4.8) k/uL APTT (22.0-30.0) sec D-Dimer (<0.60) mg/L FEU VBG pH 7.44 H (7.31-7.41) VBG HCO3 33 H (24-28) mmol/L Sodium (137-145) mmol/L Chloride (98-107) mmol/L Carbon Dioxide (22-30) mmol/L BUN (7-17) mg/dL Glucose (74-99) mg/dL POC Glucose (mg/dL) (75-99) mg/dL Plasma Lactic Acid Bora 2.1 H* (0.7-2.0) mmol/L Magnesium (1.6-2.3) mg/dL Ferritin (10.0-291.0) ng/mL AST (14-36) U/L ALT (4-34) U/L Lactate Dehydrogenase (313-618) U/L C-Reactive Protein (<10.0) mg/L Coronavirus (PCR) Detected A (Not Detectd) 12/28/19 12/29/19 12/29/19 Range/Units 22:56 06:16 06:56 RBC (3.80-5.40) m/uL Hgb (11.4-16.0) gm/dL Hct 49.3 H (34.0-46.0) % Plt Count 94 L (150-450) k/uL Lymphocytes # 0.9 L (1.0-4.8) k/uL APTT (22.0-30.0) sec D-Dimer (<0.60) mg/L FEU VBG pH (7.31-7.41) VBG HCO3 (24-28) mmol/L Sodium (137-145) mmol/L Chloride (98-107) mmol/L Carbon Dioxide (22-30) mmol/L BUN (7-17) mg/dL Glucose (74-99) mg/dL POC Glucose (mg/dL) 297 H 209 H (75-99) mg/dL Plasma Lactic Acid Bora (0.7-2.0) mmol/L Magnesium (1.6-2.3) mg/dL Ferritin (10.0-291.0) ng/mL AST (14-36) U/L ALT (4-34) U/L Lactate Dehydrogenase (313-618) U/L C-Reactive Protein (<10.0) mg/L Coronavirus (PCR) (Not Detectd) 12/29/19 12/29/19 Range/Units 06:56 12:04 RBC (3.80-5.40) m/uL Hgb (11.4-16.0) gm/dL Hct (34.0-46.0) % Plt Count (150-450) k/uL Lymphocytes # (1.0-4.8) k/uL APTT (22.0-30.0) sec D-Dimer (<0.60) mg/L FEU VBG pH (7.31-7.41) VBG HCO3 (24-28) mmol/L Sodium 151 H (137-145) mmol/L Chloride 115 H (98-107) mmol/L Carbon Dioxide 34 H (22-30) mmol/L BUN 39 H (7-17) mg/dL Glucose 220 H (74-99) mg/dL POC Glucose (mg/dL) 168 H (75-99) mg/dL Plasma Lactic Acid Bora (0.7-2.0) mmol/L Magnesium (1.6-2.3) mg/dL Ferritin (10.0-291.0) ng/mL AST (14-36) U/L ALT (4-34) U/L Lactate Dehydrogenase (313-618) U/L C-Reactive Protein (<10.0) mg/L Coronavirus (PCR) (Not Detectd) Thrombosis Risk Factor Assmnt - Choose All That Apply Any of the Below Risk Factors Present?: Yes Each Factor Represents 1 point: Abnormal pulmonary function (COPD), Obesity (BMI >25) Each Risk Factor Represents 3 Points: Age 75 years or older Thrombosis Risk Factor Assessment Total Risk Factor Score: 5 Thrombosis Risk Factor Assessment Level: High Risk Assessment and Plan Plan: #1 pneumonia likely related to COVID 19 viral pneumonitis #2 severe hypernatremia with sodium of 151 #3 mental status changes likely related to hypernatremia and metabolic encephalopathy related to infection #4 acute hypoxic respiratory failure related to pneumonia, requiring oxygen at 4 L nasal cannula at this time #5 underlying history of hypertension #6 underlying history of COPD #7 underlying history of insulin-dependent diabetes mellitus millimeters #8 underlying history of stroke with right sided paralysis #9 chronic dysphagia and aspiration requiring PEG tube feeding #10 underlying history of atrial fibrillation maintained on Xarelto At this time patient is admitted to telemetry floor, custodial medication were reordered Patient was started on IV Zithromax and oxygen supplements Consultation for pulmonary and infectious disease requested in the emergency room Will follow closely Prognosis is guarded due to multiple underlying comorbid conditions
[2019-12-29] MEDS: PIPERACILLIN-TAZOBACTAM 3.375 GM in SODIUM CHLORIDE 0.9% 100 ML IVPB SCH ×2 (16:47→23:13)
[2019-12-29 17:04] LABS: Glucose,Whole Blood 168 mg/dL (75-99)
[2019-12-29 20:43] LABS: Glucose,Whole Blood 273 mg/dL (75-99)
[2019-12-29] MEDS: FERROUS SULFATE 325 MG TAB PO SCH (21:28)
[2019-12-29] MEDS: RIVAROXABAN 10 MG TAB PO SCH (21:28)
[2019-12-29] MEDS: cloNIDine HCL 0.1 MG TAB PEG/G-TUBE SCH (21:28)
[2019-12-29] MEDS: PRAVASTATIN SODIUM 20 MG TAB PEG/G-TUBE SCH (21:28)
[2019-12-29] MEDS: INSULIN DETEMIR (LEVEMIR) 100 UNIT/ML SYR SQ SCH (21:29)
[2019-12-29] MEDS: ACETAMINOPHEN TAB 325 MG TAB PO PRN (23:26)
[2019-12-30] MEDS: SODIUM CHLORIDE 0.45% 1,000 ML IV SCH ×2 (04:16→16:44)
--- NOTE | 2019-12-30 05:16 | CONS ---
CONSULTATION DATE OF SERVICE: 12/29/2019 REASON FOR CONSULTATION: COVID-19 pneumonia. HISTORY OF PRESENT ILLNESS: The patient is an 79-year-old female a [facility] resident. The patient has been sent to the ER via EMS after the patient was noticed to have a fever and hypoxia. Apparently the patient has been complaining of a cough that has been going on for about 2 weeks per the EMS report. The patient has been getting more weak, lethargic, confused and hypoxic with O2 sats of 80%. The patient subsequently has been transferred to [facility] ER for further management. On arrival to the ER, the patient did have chest x-ray that showed left basilar opacity concerning for pneumonia. The patient did have a temperature of 101 degrees Fahrenheit on arrival to the ER. She was 91% on sats. Did have supplemental oxygen applied. The patient did have a normal white count, did have lymphopenia. CRP was 10.5. The procalcitonin was normal. She has been diagnosed with acute COVID-19 pneumonia. She has been started on Plaquenil and Zithromax as well as Zosyn and admitted to the hospital. Infectious Disease was consulted for further recommendations regarding antibiotic therapy. Most of the information has been obtained from review of the chart and nursing staff, the patient currently not a good historian and did not provide any history. REVIEW OF SYSTEMS: Positive points have been mentioned in HPI. Complete review could not be obtained because underlying mental status. PAST MEDICAL HISTORY: COPD, CVA, TIA, diabetes mellitus, hyperlipidemia, hypertension, osteoarthritis, atrial fibrillation, asthma. PAST SURGICAL HISTORY: Hysterectomy: SOCIAL HISTORY: Remote history of smoking. No drinking or drug use. FAMILY HISTORY: No pertinent findings noticed. ALLERGIES: No known drug allergies. MEDICATIONS: Medications include the patient is currently on Tylenol, Ventolin, Norvasc, Zithromax, Catapres, iron sulfate, Plaquenil, NovoLog, Levemir, Zestril, naloxone, Zosyn, Xarelto. PHYSICAL EXAMINATION: On examination, her blood pressure 129/59 with a pulse of 79, temperature 99.1. She is 99% on 3 L nasal cannula. General description is an elderly female lying in bed in no distress. No tachypnea or accessory muscle of respiration use. HEENT: Examination shows slight pallor. No scleral icterus. Oral mucous membranes dry. LUNGS: Unlabored breathing, decreased intensity of breath sounds. No wheeze. HEART: S1, S2. Regular rate and rhythm. ABDOMEN: Soft, no tenderness. No guarding or rigidity. EXTREMITIES: No edema of feet. SKIN EXAMINATION: No rash or mass palpable. NEUROLOGICALLY: Patient sleepy though arousable. Responds to her name, however, orientation could not be determined. LABS: Hemoglobin is 15.5, white count 4.8, BUN of 39, creatinine 0.75. Electrolytes have been normal. Gonzalez PCR was positive. Influenza was negative as well as RSV. Chest x-ray with left lower lobe infiltrate. DIAGNOSTIC IMPRESSION AND PLAN: Patient admitted to the hospital with hypoxemia, fever, source likely acute COVID-19 pneumonia clinically suspicion low for underlying bacterial pneumonia in this patient who did have normal procalcitonin level. PLAN: 1. Plaquenil as per protocol, already started. Will add Zinc and monitor the patient closely for any worsening respiratory distress. 2. Zosyn can be safely discontinued as low clinical suspicion of underlying secondary bacterial pneumonia. 3. We will follow on clinical condition and further adjust medication if needed. Thank you for this consultation. Will follow this patient along with you. MMODL / IJN: [id number] / [email or web address]
[2019-12-30 06:16] LABS: Glucose,Whole Blood 392 mg/dL (75-99)
[2019-12-30] MEDS: INSULIN ASPART (NovoLOG) 100 UNIT/ML VIAL SQ SCH ×7 (06:24→21:20)
--- NOTE | 2019-12-30 07:37 | XR ---
EXAMINATION TYPE: XR chest 1V portable DATE OF EXAM: 12/30/2019 CLINICAL HISTORY: Difficulty breathing progress study. Suspected COVID-19 pneumonia. TECHNIQUE: Single AP portable upright view of the chest is obtained. COMPARISON: Chest x-ray from 2 days earlier FINDINGS: Background mild cardiomegaly with atherosclerotic thoracic aorta. Background chronic paren chymal change with left basilar consolidation silhouetting left hemidiaphragm. Right lung remains dane ar. Osseous structures are intact. Bilateral hilar prominence likely reflecting underlying pulmonary artery hypertension again seen. IMPRESSION: Chronic parenchymal changes and cardiomegaly with persistent left basilar acute infiltrat e. No significant change from one day earlier.
[2019-12-30] MEDS: ALBUTEROL HFA INHALER INHALATION SCH ×4 (07:48→20:28)
[2019-12-30 08:10] LABS: Basophils % (A) 1 %; Eosinophils % (A) 1 %; HCT 48.8 % (34.0-46.0); Hypochromasia Slight; Lymphocytes # (A) 0.8 k/uL (1.0-4.8); Lymphocytes % (A) 19 %; MCH 30.3 pg (25.0-35.0); MCHC 30.8 g/dL (31.0-37.0); MCV 98.5 fL (80.0-100.0); Mean Platelet Volume 11.6; Monocytes # (A) 0.3 k/uL (0-1.0); Monocytes % (A) 6 %; Neutrophils # (A) 3.1 k/uL (1.3-7.7); Neutrophils % (A) 72 %; RBC 4.96 m/uL (3.80-5.40); RDW 13.7 % (11.5-15.5); WBC 4.3 k/uL (3.8-10.6)
[2019-12-30 08:19] LABS: Albumin 2.8 g/dL (3.5-5.0); C Reactive Protein 43.8 mg/L (<10.0); Calcium 9.4 mg/dL (8.4-10.2); Potassium 4.6 mmol/L (3.5-5.1); Total Bilirubin 0.4 mg/dL (0.2-1.3); Total Protein 5.9 g/dL (6.3-8.2)
[2019-12-30 09:19] LABS: Platelet Count 93 k/uL (150-450)
[2019-12-30] MEDS: LISINOPRIL 10 MG TAB PEG/G-TUBE SCH (09:43)
[2019-12-30] MEDS: POTASSIUM CHLORIDE ER 10 MEQ TAB.ER.PRT PO SCH (09:43)
[2019-12-30] MEDS: amLODIPine 10 MG TAB PEG/G-TUBE SCH (09:43)
[2019-12-30] MEDS: glipiZIDE 5 MG TAB PEG/G-TUBE SCH (09:43)
[2019-12-30] MEDS: CHOLECALCIFEROL 1,000 UNIT TAB PEG/G-TUBE SCH (09:43)
[2019-12-30] MEDS: METOPROLOL TARTRATE 50 MG TAB PEG/G-TUBE SCH ×2 (09:44→21:20)
[2019-12-30] MEDS: PIPERACILLIN-TAZOBACTAM 3.375 GM in SODIUM CHLORIDE 0.9% 100 ML IVPB SCH ×3 (09:44→23:19)
[2019-12-30] MEDS: HYDROXYCHLOROQUINE SULFATE 200 MG TAB PO SCH ×2 (09:44→21:20)
[2019-12-30] MEDS: ACETAMINOPHEN TAB 325 MG TAB PO PRN ×2 (10:09→21:32)
[2019-12-30] MEDS: DEXTROSE 5% IN WATER 1,000 ML IV SCH ×2 (10:19→15:58)
[2019-12-30] MEDS: AZITHROMYCIN 500 MG in SODIUM CHLORIDE 0.9% 250 ML IVPB SCH (11:10)
[2019-12-30 11:51] LABS: Glucose,Whole Blood 239 mg/dL (75-99)
--- NOTE | 2019-12-30 15:16 | P.CNPUL ---
History of Present Illness Consult date: 12/30/19 Reason for consult: dyspnea, cough, pneumonia Chief complaint: Shortness of breath cough and fever History of present illness: This is an 79-year-old -Armenian female patient well-known to me resident of [facility]. Due to prior stroke patient is unable to contribute to her history, her history was obtained from her chart. Her past medical history is significant for paroxysmal atrial fibrillation, asthma, chronic struck a pulmonary disease, right-sided paralysis secondary to CVA/TIA, hypertension, hyperlipidemia, anemia of chronic disease, insulin-dependent diabetes mellitus, osteoarthritis, chronic debilitation, nonambulatory and is chronically nothing by mouth with a PEG tube in place for tube feedings. She presented to the emergency department here at [facility] via EMS with a persistent cough. She was found to be febrile and hypoxic with her oxygen saturations in the 80s. In the emergency department her T-max temperature was 101F, and her oxygen saturation saturations were 91% on 4 L nasal cannula. A 12-lead EKG was completed which showed normal sinus rhythm heart rate 86 BPM. A chest x-ray was completed which demonstrated a left basilar opacity obscuring the left hemidiaphragm. Initial lab results showed a WBC count 5.3, Hgb 16.6, platelets 107, d-dimer 1.13, sodium 148, chloride 110, CO2 33, BUN 45, creatinine 0.83, glucose 357, ferritin 360.5, AST 59, ALT 61, and her LDH was 1053. She was tested for influenza a and B which were not detected and she was also tested for COVID 19 which was a positive result. 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 History of Any Multi-Drug Resistant Organisms: None Reported Past Surgical History: Hysterectomy Additional Past Surgical History / Comment(s): not known at ECF,peg insertion Past Anesthesia/Blood Transfusion Reactions: No Reported Reaction, Unable to Obtain Additional Past Anesthesia/Blood Transfusion Reaction / Comment(s): spouse thinks no problems that he knows of(poor historian), no info at [facility] Past Psychological History: No Psychological Hx Reported Smoking Status: Former smoker Past Alcohol Use History: None Reported Additional Past Alcohol Use History / Comment(s): STARTED SMOKING AT AGE 17,SMOKED LESS THAN 1 PPD, QUIT 2001. Past Drug Use History: None Reported - Past Family History Mother Family Medical History: Unable to Obtain Additional Family Medical History / Comment(s): no info at F Father History Unknown: Yes Medications and Allergies Home Medications Medication Instructions Recorded Confirmed Type amLODIPine [Norvasc] 10 mg PEG/G-TUBE DAILY 01/24/16 12/28/19 History Furosemide [Lasix] 20 mg PEG/G-TUBE DAILY 03/31/16 12/28/19 History Lisinopril [Zestril] 10 mg PEG/G-TUBE DAILY 07/22/17 12/28/19 History Pravastatin Sodium [Pravachol] 10 mg PEG/G-TUBE HS@199907/22/17 12/28/19 History Folic Acid 0.8 mg PEG/G-TUBE HS@199902/23/19 12/28/19 History Metoprolol Tartrate [Lopressor] 50 mg PEG/G-TUBE BID 02/23/19 12/28/19 History Ferrous Sulfate [Iron (65 MG 325 mg PEG/G-TUBE HS@199910/05/19 12/28/19 History Elemental)] cloNIDine HCL [Catapres] 0.1 mg PEG/G-TUBE HS@199910/05/19 12/28/19 History glipiZIDE [Glucotrol] 5 mg PEG/G-TUBE DAILY 10/05/19 12/28/19 History Rivaroxaban [Xarelto] 10 mg PEG/G-TUBE HS@199910/06/19 12/28/19 History Potassium Chloride Oral Liquid 10 meq PEG/G-TUBE DAILY 11/07/19 12/28/19 History Cholecalciferol [Vitamin D3 (25 2,000 unit PEG/G-TUBE DAILY 12/28/19 12/28/19 History Mcg = 1000 Iu)] Insulin Glargine,Hum.rec.anlog 18 unit SQ HS@199912/28/19 12/28/19 History [Lantus Solostar] Insulin Lispro [humaLOG Kwikpen] 2 unit SQ AC-TID@0700,1100,16 12/28/19 12/28/19 History Insulin Lispro [humaLOG Kwikpen] See Protocol SQ ACHS 12/28/19 12/28/19 History Allergies Allergy/AdvReac Type Severity Reaction Status Date / Time No Known Allergies Allergy Verified 12/28/19 17:40 Physical Exam Vitals: Vital Signs Temp Pulse Resp BP Pulse Ox 12/30/19 12:00 59 L 19 12/30/19 11:44 99.2 F 59 L 19 96/58 95 12/30/19 08:00 100.8 F H 72 19 122/41 96 12/30/19 03:05 99.2 F 69 20 107/58 93 L 12/30/19 01:31 99.5 F 12/30/19 01:15 99.5 F 12/30/19 00:20 101 F H 12/29/19 23:15 103 F H 71 22 121/59 92 L 12/29/19 19:40 99.1 F 79 18 129/59 99 12/29/19 19:35 18 12/29/19 16:00 987 F H 75 16 128/60 98 Intake and Output 12/30/19 12/30/19 12/30/19 06:59 14:59 22:59 Other: # Voids 1 # Bowel Movements 0 - Constitutional 79-year-old female patient who is lethargic but does open up her eyes to verbal stimuli. General appearance: disheveled, no acute distress, obese - EENT Mucous membranes dry Eyes: PERRLA, poor dentition - Neck Neck: no lymphadenopathy, no stridor - Respiratory Scattered rhonchi throughout, diminished to her left lower lobe. Respirations are symmetrical and nonlabored. - Cardiovascular Regular rhythm and rate. S1 and S2 present, negative for S3, gallop or murmur. Trace edema to her bilateral lower extremities. - Gastrointestinal Abdomen soft and nondistended. Active bowel sounds present in all 4 abdominal quadrants. PEG tube is in place. General gastrointestinal: no organomegaly, no rigid - Integumentary Skin is warm and dry. No clubbing or cyanosis is present. Integumentary: no rash - Neurologic Open eyes with verbal stimuli. - Musculoskeletal Musculoskeletal: generalized weakness Results - Laboratory Findings CBC and BMP: 12/30/19 07:17 12/30/19 07:17 PT/INR, D-dimer PT 10.0 sec (9.0-12.0) 12/28/19 17:53 INR 1.0 (<1.2) 12/28/19 17:53 D-Dimer 0.68 mg/L FEU (<0.60) H 12/30/19 07:17 Abnormal lab findings: Abnormal Labs 12/28/19 12/28/19 12/28/19 17:53 17:53 17:53 RBC 5.44 H Hgb 16.6 H Hct 52.6 H MCHC Plt Count 107 L Lymphocytes # 0.9 L APTT 19.9 L D-Dimer 1.13 H VBG pH VBG HCO3 Sodium 148 H Chloride 110 H Carbon Dioxide 33 H BUN 45 H Glucose 357 H POC Glucose (mg/dL) Plasma Lactic Acid Bora Magnesium 2.6 H Ferritin 360.5 H AST 59 H ALT 61 H Lactate Dehydrogenase 1053 H C-Reactive Protein 10.5 H Total Protein Albumin Coronavirus (PCR) 12/28/19 12/28/19 12/28/19 17:53 17:53 18:15 RBC Hgb Hct MCHC Plt Count Lymphocytes # APTT D-Dimer VBG pH 7.44 H VBG HCO3 33 H Sodium Chloride Carbon Dioxide BUN Glucose POC Glucose (mg/dL) Plasma Lactic Acid Bora 2.1 H* Magnesium Ferritin AST ALT Lactate Dehydrogenase C-Reactive Protein Total Protein Albumin Coronavirus (PCR) Detected A 12/28/19 12/29/19 12/29/19 22:56 06:16 06:56 RBC Hgb Hct 49.3 H MCHC Plt Count 94 L Lymphocytes # 0.9 L APTT D-Dimer VBG pH VBG HCO3 Sodium Chloride Carbon Dioxide BUN Glucose POC Glucose (mg/dL) 297 H 209 H Plasma Lactic Acid Bora Magnesium Ferritin AST ALT Lactate Dehydrogenase C-Reactive Protein Total Protein Albumin Coronavirus (PCR) 12/29/19 12/29/19 12/29/19 06:56 12:04 16:49 RBC Hgb Hct MCHC Plt Count Lymphocytes # APTT D-Dimer VBG pH VBG HCO3 Sodium 151 H Chloride 115 H Carbon Dioxide 34 H BUN 39 H Glucose 220 H POC Glucose (mg/dL) 168 H 168 H Plasma Lactic Acid Bora Magnesium Ferritin AST ALT Lactate Dehydrogenase C-Reactive Protein Total Protein Albumin Coronavirus (PCR) 12/29/19 12/30/19 12/30/19 20:42 06:14 07:17 RBC Hgb Hct 48.8 H MCHC 30.8 L Plt Count 93 L Lymphocytes # 0.8 L APTT D-Dimer VBG pH VBG HCO3 Sodium Chloride Carbon Dioxide BUN Glucose POC Glucose (mg/dL) 273 H 392 H Plasma Lactic Acid Bora Magnesium Ferritin AST ALT Lactate Dehydrogenase C-Reactive Protein Total Protein Albumin Coronavirus (PCR) 12/30/19 12/30/19 12/30/19 07:17 07:17 11:46 RBC Hgb Hct MCHC Plt Count Lymphocytes # APTT D-Dimer 0.68 H VBG pH VBG HCO3 Sodium Chloride 110 H Carbon Dioxide 32 H BUN 35 H Glucose 422 H POC Glucose (mg/dL) 239 H Plasma Lactic Acid Bora Magnesium Ferritin AST 40 H ALT 41 H Lactate Dehydrogenase 730 H C-Reactive Protein 43.8 H Total Protein 5.9 L Albumin 2.8 L Coronavirus (PCR) - Diagnostic Findings Chest x-ray: report reviewed, image reviewed (Finding as noted above) Assessment and Plan Assessment: Acute hypoxic respiratory failure COVID 19 pneumonia Aspiration pneumonia likely mixed bacterial and/or or gram-negative related Chronic right-sided weakness dysphagia and aphasia status post PEG tube COPD Insulin-dependent diabetes mellitus uncontrolled Hypertension hypertensive cardiovascular disease Chronic atrial fibrillation on anticoagulation with XERALTO Plan: Continue gentle rehydration Monitor sodium levels closely Continue respiratory and contact isolation Agree with continuation of Zithromax along with hydroxychloroquine for a while infection and Zosyn for likely bacterial pneumonia aspiration related Time with Patient: Greater than 30
--- NOTE | 2019-12-30 15:47 | P.PN ---
Subjective Progress Note Date: 12/30/19 Soledad Enriquez, is an 79-year-old female who resides at a [facility] at this time will was noticed to have worsening mental status and persistent cough, patient started having elevated temperature up to 101 at that point she was sent to [facility] emergency room she had testing for influenza A and B which were negative she also had an instant test for Covid 19 which was positive she was admitted to telemetry floor she was started on IV Zithromax pulmonary and infectious disease consultation were requested. Patient also had evidence of dehydration with hypernatremia elevated sodium level at 151. Patient has a known history of multiple medical problems including history of stroke with right sided paralysis, history of aspiration patient has a PEG tube for feeding, history of insulin-dependent diabetes mellitus, history of hypertension, history of hyperlipidemia, and history of paroxysmal atrial fibrillation. On presentation patient had a temperature of 101 pulse of 82 respiration 18 blood pressure 119/63 and pulse ox of 91% on 4 L nasal cannula. White blood count was 4.8 chest x-ray revealed evidence of left basilar opacity. On 12/30/2019 patient was seen and examined on the medical floor she is somnolent responsive in no apparent distress there is low-grade fever temperature is 100.8 there is no chills no headache or dizziness no chest pain no shortness of breath no cough no nausea or vomiting no abdominal pain no diarrhea and no burning was urination. Nurse noticed some vaginal bleeding, hemoglobin is stable at 15. Pulse ox is 96% on 4 L nasal cannula Objective - Vital Signs Vital signs: Vital Signs Temp 99.2 F 12/30/19 11:44 Pulse 59 L 12/30/19 12:00 Resp 19 12/30/19 12:00 BP 96/58 12/30/19 11:44 Pulse Ox 95 12/30/19 11:44 Intake & Output 12/29/19 12/30/19 12/30/19 18:59 06:59 18:59 Weight 96.5 kg Other: # Voids 2 1 # Bowel Movements 0 0 - Exam In general patient is somnolent nonverbal in no apparent distress HEENT head normocephalic and atraumatic Neck is supple no JVD no goiter no lymphadenopathy Chest exam reveals a few scattered crackles no wheezing Cardiac exam reveals regular heart sounds no gallops no murmurs Abdomen is soft nontender no organomegaly with normal bowel sounds Extremity exam reveals no edema no cyanosis or clubbing - Labs CBC & Chem 7: 12/30/19 07:17 12/30/19 07:17 Labs: Abnormal Lab Results - Last 24 Hours (Table) 12/29/19 12/29/19 12/30/19 Range/Units 16:49 20:42 06:14 Hct (34.0-46.0) % MCHC (31.0-37.0) g/dL Plt Count (150-450) k/uL Lymphocytes # (1.0-4.8) k/uL D-Dimer (<0.60) mg/L FEU Chloride (98-107) mmol/L Carbon Dioxide (22-30) mmol/L BUN (7-17) mg/dL Glucose (74-99) mg/dL POC Glucose (mg/dL) 168 H 273 H 392 H (75-99) mg/dL AST (14-36) U/L ALT (4-34) U/L Lactate Dehydrogenase (313-618) U/L C-Reactive Protein (<10.0) mg/L Total Protein (6.3-8.2) g/dL Albumin (3.5-5.0) g/dL 12/30/19 12/30/19 12/30/19 Range/Units 07:17 07:17 07:17 Hct 48.8 H (34.0-46.0) % MCHC 30.8 L (31.0-37.0) g/dL Plt Count 93 L (150-450) k/uL Lymphocytes # 0.8 L (1.0-4.8) k/uL D-Dimer 0.68 H (<0.60) mg/L FEU Chloride 110 H (98-107) mmol/L Carbon Dioxide 32 H (22-30) mmol/L BUN 35 H (7-17) mg/dL Glucose 422 H (74-99) mg/dL POC Glucose (mg/dL) (75-99) mg/dL AST 40 H (14-36) U/L ALT 41 H (4-34) U/L Lactate Dehydrogenase 730 H (313-618) U/L C-Reactive Protein 43.8 H (<10.0) mg/L Total Protein 5.9 L (6.3-8.2) g/dL Albumin 2.8 L (3.5-5.0) g/dL 12/30/19 Range/Units 11:46 Hct (34.0-46.0) % MCHC (31.0-37.0) g/dL Plt Count (150-450) k/uL Lymphocytes # (1.0-4.8) k/uL D-Dimer (<0.60) mg/L FEU Chloride (98-107) mmol/L Carbon Dioxide (22-30) mmol/L BUN (7-17) mg/dL Glucose (74-99) mg/dL POC Glucose (mg/dL) 239 H (75-99) mg/dL AST (14-36) U/L ALT (4-34) U/L Lactate Dehydrogenase (313-618) U/L C-Reactive Protein (<10.0) mg/L Total Protein (6.3-8.2) g/dL Albumin (3.5-5.0) g/dL Microbiology - Last 24 Hours (Table) 12/28/19 17:53 Blood Culture - Preliminary Blood No Growth after 24 hours Assessment and Plan Plan: #1 pneumonia likely related to COVID 19 viral pneumonitis #2 severe hypernatremia with sodium of 151 #3 mental status changes likely related to hypernatremia and metabolic en cephalopathy related to infection #4 acute hypoxic respiratory failure related to pneumonia, requiring oxygen at 4 L nasal cannula at this time #5 underlying history of hypertension #6 underlying history of COPD #7 underlying history of insulin-dependent diabetes mellitus millimeters #8 underlying history of stroke with right sided paralysis #9 chronic dysphagia and aspiration requiring PEG tube feeding #10 underlying history of atrial fibrillation maintained on Xarelto #11 vaginal bleeding, at this time will monitor closely, will check daily CBC, and monitor for amount of bleeding. Once her current illness has subsided, will investigate further with pelvic ultrasound and CARDIAC CATHETERIZATION TECHNOLOGIST consult. At this time patient is admitted to telemetry floor, [facility] medication were reordered Patient was started on IV Zithromax and oxygen supplements Consultation for pulmonary and infectious disease requested in the emergency room Will follow closely Prognosis is guarded due to multiple underlying comorbid conditions
[2019-12-30] MEDS: ZINC SULFATE 220 MG CAP PO SCH (15:57)
[2019-12-30 20:17] LABS: Glucose,Whole Blood 188 mg/dL (75-99)
[2019-12-30] MEDS: cloNIDine HCL 0.1 MG TAB PEG/G-TUBE SCH (21:19)
[2019-12-30] MEDS: RIVAROXABAN 10 MG TAB PO SCH (21:19)
[2019-12-30] MEDS: PRAVASTATIN SODIUM 20 MG TAB PEG/G-TUBE SCH (21:19)
[2019-12-30] MEDS: INSULIN DETEMIR (LEVEMIR) 100 UNIT/ML SYR SQ SCH (21:20)
[2019-12-30] MEDS: FERROUS SULFATE 325 MG TAB PO SCH (21:20)
[2019-12-30] MEDS: methylPREDNISolone SOD SUCCI 40 MG/ML 1 ML VIAL IV SCH (23:19)
--- NOTE | 2019-12-30 23:43 | PN ---
PROGRESS NOTE DATE OF SERVICE: 12/30/2019 REASON FOR FOLLOWUP: Acute COVID-19 pneumonia. INTERVAL HISTORY: The patient did spike a fever of 100.3 degrees Fahrenheit this morning. The patient is afebrile since then. She has been breathing comfortably, requiring supplemental oxygen. No vomiting or any diarrhea has been reported. PHYSICAL EXAMINATION: On examination, her blood pressure 119/52 with a pulse of 90, temperature 98.5. She is 92% on 4 L nasal cannula. General description is an elderly female lying in bed in no distress. RESPIRATORY SYSTEM: Unlabored breathing with decreased breath sounds at the base. No wheeze. HEART: S1, S2. Regular rate and rhythm. ABDOMEN: Soft. No tenderness. LABS: Hemoglobin is 15 with a white count of 4.3, BUN of 35, creatinine 0.84. LDH slightly decreased. CRP up. DIAGNOSTIC IMPRESSION AND PLAN: Patient with acute COVID-19 infection, now with persistent low-grade fever. Will start the patient on Solu-Medrol, as she is requiring supplemental oxygen as well. Keep the patient on Plaquenil and zinc, Zithromax, and monitor her clinical course closely. MMODL / IJN: [id number] / MTDD
[2019-12-31] MEDS: DEXTROSE 5% IN WATER 1,000 ML IV SCH ×2 (04:23→22:54)
[2019-12-31] MEDS: SODIUM CHLORIDE 0.45% 1,000 ML IV SCH ×2 (05:56→22:54)
[2019-12-31 06:27] LABS: Glucose,Whole Blood 476 mg/dL (75-99)
[2019-12-31] MEDS ORDERED: INSULIN REGULAR BOLUS (FROM DRIP BAG) IV ONE ×2 (06:48→06:52)
[2019-12-31 07:16] LABS: Basophils % (A) 0 %; Eosinophils % (A) 0 %; HCT 50.1 % (34.0-46.0); HGB 15.2 gm/dL (11.4-16.0); Hypochromasia Slight; Lymphocytes # (A) 0.7 k/uL (1.0-4.8); Lymphocytes % (A) 17 %; MCH 30.3 pg (25.0-35.0); MCHC 30.2 g/dL (31.0-37.0); MCV 100.1 fL (80.0-100.0); Mean Platelet Volume 11.5; Monocytes # (A) 0.1 k/uL (0-1.0); Monocytes % (A) 3 %; Neutrophils # (A) 3.3 k/uL (1.3-7.7); Neutrophils % (A) 79 %; RBC 5.01 m/uL (3.80-5.40); RDW 13.6 % (11.5-15.5); WBC 4.1 k/uL (3.8-10.6)
[2019-12-31 07:19] LABS: Platelet Count 79 k/uL (150-450)
[2019-12-31 07:30] LABS: Albumin 2.7 g/dL (3.5-5.0); Potassium 5.8 mmol/L (3.5-5.1); Total Bilirubin 0.4 mg/dL (0.2-1.3); Total Protein 5.9 g/dL (6.3-8.2)
[2019-12-31] MEDS: ALBUTEROL HFA INHALER INHALATION SCH ×5 (07:41→20:00)
[2019-12-31] MEDS: methylPREDNISolone SOD SUCCI 40 MG/ML 1 ML VIAL IV SCH ×2 (07:59→21:28)
[2019-12-31] MEDS: POTASSIUM CHLORIDE ER 10 MEQ TAB.ER.PRT PO SCH (08:00)
[2019-12-31] MEDS: METOPROLOL TARTRATE 50 MG TAB PEG/G-TUBE SCH ×2 (08:00→21:28)
[2019-12-31] MEDS: LISINOPRIL 10 MG TAB PEG/G-TUBE SCH (08:00)
[2019-12-31] MEDS: INSULIN ASPART (NovoLOG) 100 UNIT/ML VIAL SQ SCH ×3 (08:00→16:24)
[2019-12-31] MEDS: CHOLECALCIFEROL 1,000 UNIT TAB PEG/G-TUBE SCH (08:00)
[2019-12-31] MEDS: PIPERACILLIN-TAZOBACTAM 3.375 GM in SODIUM CHLORIDE 0.9% 100 ML IVPB SCH ×3 (08:01→23:22)
[2019-12-31] MEDS: amLODIPine 10 MG TAB PEG/G-TUBE SCH (08:01)
[2019-12-31] MEDS: ZINC SULFATE 220 MG CAP PO SCH (08:01)
[2019-12-31] MEDS: AZITHROMYCIN 500 MG in SODIUM CHLORIDE 0.9% 250 ML IVPB SCH (08:02)
[2019-12-31] MEDS: INSULIN REGULAR 100 UNIT in SODIUM CHLORIDE 0.9% 100 ML IV SCH ×2 (08:38→16:44)
[2019-12-31 09:03] LABS: Glucose,Whole Blood 421 mg/dL (75-99)
[2019-12-31 09:25] LABS: Glucose,Whole Blood 402 mg/dL (75-99)
[2019-12-31 10:05] LABS: Glucose,Whole Blood 360 mg/dL (75-99)
[2019-12-31] MEDS ORDERED: SODIUM POLYSTYRENE SULFONATE 15 GM/60 ML BOTTLE PO ONE (10:12)
--- NOTE | 2019-12-31 10:12 | P.PN ---
Subjective Progress Note Date: 12/31/19 Soledad Enriquez, is an 79-year-old female who resides at a senior living at this time will was noticed to have worsening mental status and persistent cough, patient started having elevated temperature up to 101 at that point she was sent to [facility] emergency room she had testing for influenza A and B which were negative she also had an instant test for Covid 19 which was positive she was admitted to telemetry floor she was started on IV Zithromax pulmonary and infectious disease consultation were requested. Patient also had evidence of dehydration with hypernatremia elevated sodium level at 151. Patient has a known history of multiple medical problems including history of stroke with right sided paralysis, history of aspiration patient has a PEG tube for feeding, history of insulin-dependent diabetes mellitus, history of hypertension, history of hyperlipidemia, and history of paroxysmal atrial fibrillation. On presentation patient had a temperature of 101 pulse of 82 respiration 18 blood pressure 119/63 and pulse ox of 91% on 4 L nasal cannula. White blood count was 4.8 chest x-ray revealed evidence of left basilar opacity. On 12/30/2019 patient was seen and examined on the medical floor she is somnolent responsive in no apparent distress there is low-grade fever temperature is 100.8 there is no chills no headache or dizziness no chest pain no shortness of breath no cough no nausea or vomiting no abdominal pain no diarrhea and no burning was urination. Nurse noticed some vaginal bleeding, hemoglobin is stable at 15. Pulse ox is 96% on 4 L nasal cannula , On 12/31/2019 patient was seen and examined on the medical floor she is somnolent responsive in no apparent distress, her fever is subsiding temperatures this morning 99 pulse ox is 92% on 4 L nasal cannula, patient is denying any complaints at this time however, she does not seem to be listening much to the questions, and she goes back to sleep fast. White blood count today is normal at 4.1 hemoglobin is 15.2 potassium is elevated at 5.8 Objective - Vital Signs Vital signs: Vital Signs Temp 98.3 F 12/31/19 03:10 Pulse 67 12/31/19 03:10 Resp 18 12/31/19 03:10 BP 107/54 12/31/19 03:10 Pulse Ox 92 L 12/31/19 03:10 Intake & Output 12/30/19 12/31/19 12/31/19 18:59 06:59 18:59 Weight 81.9 kg 77 kg Other: # Voids 1 # Bowel Movements 0 - Exam In general patient is somnolent nonverbal in no apparent distress HEENT head normocephalic and atraumatic Neck is supple no JVD no goiter no lymphadenopathy Chest exam reveals a few scattered crackles no wheezing Cardiac exam reveals regular heart sounds no gallops no murmurs Abdomen is soft nontender no organomegaly with normal bowel sounds Extremity exam reveals no edema no cyanosis or clubbing - Labs CBC & Chem 7: 12/31/19 06:40 12/31/19 06:40 Labs: Abnormal Lab Results - Last 24 Hours (Table) 12/30/19 12/30/19 12/30/19 Range/Units 07:17 11:46 20:16 Hct 48.8 H (34.0-46.0) % MCV (80.0-100.0) fL MCHC 30.8 L (31.0-37.0) g/dL Plt Count 93 L (150-450) k/uL Lymphocytes # 0.8 L (1.0-4.8) k/uL Potassium (3.5-5.1) mmol/L BUN (7-17) mg/dL Glucose (74-99) mg/dL POC Glucose (mg/dL) 239 H 188 H (75-99) mg/dL AST (14-36) U/L Total Protein (6.3-8.2) g/dL Albumin (3.5-5.0) g/dL 12/31/19 12/31/19 12/31/19 Range/Units 06:24 06:40 06:40 Hct 50.1 H (34.0-46.0) % MCV 100.1 H (80.0-100.0) fL MCHC 30.2 L (31.0-37.0) g/dL Plt Count 79 L (150-450) k/uL Lymphocytes # 0.7 L (1.0-4.8) k/uL Potassium 5.8 H (3.5-5.1) mmol/L BUN 36 H (7-17) mg/dL Glucose 496 H (74-99) mg/dL POC Glucose (mg/dL) 476 H (75-99) mg/dL AST 38 H (14-36) U/L Total Protein 5.9 L (6.3-8.2) g/dL Albumin 2.7 L (3.5-5.0) g/dL 12/31/19 Range/Units 09:02 Hct (34.0-46.0) % MCV (80.0-100.0) fL MCHC (31.0-37.0) g/dL Plt Count (150-450) k/uL Lymphocytes # (1.0-4.8) k/uL Potassium (3.5-5.1) mmol/L BUN (7-17) mg/dL Glucose (74-99) mg/dL POC Glucose (mg/dL) 421 H (75-99) mg/dL AST (14-36) U/L Total Protein (6.3-8.2) g/dL Albumin (3.5-5.0) g/dL Microbiology - Last 24 Hours (Table) 12/28/19 17:53 Blood Culture - Preliminary Blood No Growth after 48 hours Assessment and Plan Plan: #1 pneumonia likely related to COVID 19 viral pneumonitis #2 severe hypernatremia with sodium of 151 now corrected down to 141 #3 mental status changes likely related to hypernatremia and metabolic encephalopathy related to infection #4 acute hypoxic respiratory failure related to pneumonia, requiring oxygen at 4 L nasal cannula at this time #5 underlying history of hypertension #6 underlying history of COPD #7 underlying history of insulin-dependent diabetes mellitus millimeters #8 underlying history of stroke with right sided paralysis #9 chronic dysphagia and aspiration requiring PEG tube feeding #10 underlying history of atrial fibrillation maintained on Xarelto #11 vaginal bleeding, at this time will monitor closely, will check daily CBC, and monitor for amount of bleeding. Once her current illness has subsided, will investigate further with pelvic ultrasound and TOP CASE ASSEMBLER consult. #12 hyperkalemia, potassium on 12/31/2019 is elevated at 5.8 patient will receive 1 dose of Kayexalate 15 g by mouth today At this time patient is admitted to telemetry floor, correction medication were reordered Patient was started on IV Zithromax and oxygen supplements Consultation for pulmonary and infectious disease requested in the emergency room Will follow closely Prognosis is guarded due to multiple underlying comorbid conditions
[2019-12-31 10:55] LABS: Glucose,Whole Blood 328 mg/dL (75-99)
[2019-12-31] MEDS: HYDROXYCHLOROQUINE SULFATE 200 MG TAB PO SCH ×2 (11:05→21:29)
[2019-12-31 11:37] LABS: Glucose,Whole Blood 316 mg/dL (75-99)
[2019-12-31 11:58] LABS: Glucose,Whole Blood 323 mg/dL (75-99)
[2019-12-31 12:19] LABS: Glucose,Whole Blood 245 mg/dL (75-99)
[2019-12-31 12:29] LABS: Glucose,Whole Blood 228 mg/dL (75-99)
[2019-12-31 14:28] LABS: Glucose,Whole Blood 185 mg/dL (75-99)
[2019-12-31 16:38] LABS: Glucose,Whole Blood 139 mg/dL (75-99)
[2019-12-31 18:13] LABS: Glucose,Whole Blood 138 mg/dL (75-99)
--- NOTE | 2019-12-31 19:50 | PN ---
PROGRESS NOTE DATE OF SERVICE: 12/31/2019 REASON FOR FOLLOWUP: Acute COVID-19 pneumonia. INTERVAL HISTORY: The patient is currently afebrile. The patient did have a fever last night of 101.2. Patient requiring about 4 L of nasal cannula oxygen, which has been consistent over the last 24 hours. Oral intake remains to be poor. No diarrhea or vomiting has been reported by nursing staff. Patient herself was unable to provide any history. PHYSICAL EXAMINATION: Blood pressure is 90/58 with a pulse of 55, temperature 98.1. She is 93% on 4 L nasal cannula. General description is an elderly female lying in bed in no distress. Respiratory system: Unlabored breathing, decreased intensity in the breath sounds. No wheeze. Heart S1, S2. Regular rate and rhythm. Abdomen soft, no tenderness. LABS: Hemoglobin 15.2, white count 4.1. BUN of 36, creatinine 0.92. Chest x-ray last was yesterday, chronic parenchymal changes and left basilar infiltrate. DIAGNOSTIC IMPRESSION AND PLAN: Patient admitted to the hospital with fever with a diagnosis of acute COVID-19 pneumonia. The patient is currently being treated with Zithromax, Plaquenil, Solu- Medrol and zinc, to continue and monitor clinical course closely. MMODL / IJN: [id number] /
[2019-12-31 20:37] LABS: Glucose,Whole Blood 167 mg/dL (75-99)
[2019-12-31] MEDS: PRAVASTATIN SODIUM 20 MG TAB PEG/G-TUBE SCH (21:28)
[2019-12-31] MEDS: cloNIDine HCL 0.1 MG TAB PEG/G-TUBE SCH (21:28)
[2019-12-31] MEDS: FERROUS SULFATE 325 MG TAB PO SCH (21:28)
[2019-12-31] MEDS: RIVAROXABAN 10 MG TAB PO SCH (21:28)
[2019-12-31] MEDS ORDERED: INSULIN DETEMIR (LEVEMIR) 100 UNIT/ML SYR SQ SCH (21:45)
[2020-01-01 05:51] LABS: Glucose,Whole Blood 391 mg/dL (75-99)
[2020-01-01 06:15] LABS: Basophils % (A) 0 %; Eosinophils % (A) 0 %; HCT 49.4 % (34.0-46.0); HGB 15.2 gm/dL (11.4-16.0); Hypochromasia Slight; Lymphocytes # (A) 0.6 k/uL (1.0-4.8); Lymphocytes % (A) 17 %; MCH 30.1 pg (25.0-35.0); MCHC 30.8 g/dL (31.0-37.0); MCV 97.8 fL (80.0-100.0); Mean Platelet Volume 12.5; Monocytes # (A) 0.1 k/uL (0-1.0); Monocytes % (A) 3 %; Neutrophils % (A) 79 %; RBC 5.06 m/uL (3.80-5.40); RDW 13.4 % (11.5-15.5); WBC 3.8 k/uL (3.8-10.6)
[2020-01-01 06:20] LABS: Platelet Count 78 k/uL (150-450)
[2020-01-01 06:25] LABS: Albumin 2.7 g/dL (3.5-5.0); Potassium 4.8 mmol/L (3.5-5.1); Total Bilirubin 0.4 mg/dL (0.2-1.3); Total Protein 5.8 g/dL (6.3-8.2)
[2020-01-01] MEDS: INSULIN ASPART (NovoLOG) 100 UNIT/ML VIAL SQ SCH ×7 (06:37→21:30)
[2020-01-01 06:43] LABS: Large Platelets Present
[2020-01-01] MEDS: ALBUTEROL HFA INHALER INHALATION SCH ×4 (07:29→19:58)
[2020-01-01] MEDS: METOPROLOL TARTRATE 50 MG TAB PEG/G-TUBE SCH ×2 (08:43→20:17)
[2020-01-01] MEDS: amLODIPine 10 MG TAB PEG/G-TUBE SCH (08:43)
[2020-01-01] MEDS: LISINOPRIL 10 MG TAB PEG/G-TUBE SCH (08:44)
[2020-01-01] MEDS: ZINC SULFATE 220 MG CAP PO SCH (08:44)
[2020-01-01] MEDS: CHOLECALCIFEROL 1,000 UNIT TAB PEG/G-TUBE SCH (08:44)
[2020-01-01] MEDS: methylPREDNISolone SOD SUCCI 40 MG/ML 1 ML VIAL IV SCH ×2 (08:44→20:16)
[2020-01-01] MEDS: SODIUM CHLORIDE 0.45% 1,000 ML IV SCH ×2 (08:46→20:44)
[2020-01-01] MEDS: PIPERACILLIN-TAZOBACTAM 3.375 GM in SODIUM CHLORIDE 0.9% 100 ML IVPB SCH ×2 (08:46→15:37)
[2020-01-01] MEDS: HYDROXYCHLOROQUINE SULFATE 200 MG TAB PO SCH ×2 (08:57→21:30)
[2020-01-01 12:00] LABS: Glucose,Whole Blood 327 mg/dL (75-99)
[2020-01-01] MEDS: AZITHROMYCIN 500 MG in SODIUM CHLORIDE 0.9% 250 ML IVPB SCH (13:30)
--- NOTE | 2020-01-01 13:55 | P.PN ---
Subjective Progress Note Date: 01/01/20 Soledad Enriquez, is an 79-year-old female who resides at a retirement at this time will was noticed to have worsening mental status and persistent cough, patient started having elevated temperature up to 101 at that point she was sent to [facility] emergency room she had testing for influenza A and B which were negative she also had an instant test for Covid 19 which was positive she was admitted to telemetry floor she was started on IV Zithromax pulmonary and infectious disease consultation were requested. Patient also had evidence of dehydration with hypernatremia elevated sodium level at 151. Patient has a known history of multiple medical problems including history of stroke with right sided paralysis, history of aspiration patient has a PEG tube for feeding, history of insulin-dependent diabetes mellitus, history of hypertension, history of hyperlipidemia, and history of paroxysmal atrial fibrillation. On presentation patient had a temperature of 101 pulse of 82 respiration 18 blood pressure 119/63 and pulse ox of 91% on 4 L nasal cannula. White blood count was 4.8 chest x-ray revealed evidence of left basilar opacity. On 12/30/2019 patient was seen and examined on the medical floor she is somnolent responsive in no apparent distress there is low-grade fever temperature is 100.8 there is no chills no headache or dizziness no chest pain no shortness of breath no cough no nausea or vomiting no abdominal pain no diarrhea and no burning was urination. Nurse noticed some vaginal bleeding, hemoglobin is stable at 15. Pulse ox is 96% on 4 L nasal cannula , On 12/31/2019 patient was seen and examined on the medical floor she is somnolent responsive in no apparent distress, her fever is subsiding temperatures this morning 99 pulse ox is 92% on 4 L nasal cannula, patient is denying any complaints at this time however, she does not seem to be listening much to the questions, and she goes back to sleep fast. White blood count today is normal at 4.1 hemoglobin is 15.2 potassium is elevated at 5.8 On 01/01/2020 patient was seen and examined on the medical floor she is more alert and responsive today there is no fever or chills no headache or dizziness no chest pain no shortness of breath no cough no nausea or vomiting no abdominal pain no diarrhea and no urinary symptoms, she is receiving feeding through PEG tube at night, glucose level is elevated again, will increase Lantus dose to 25 units at bedtime, and continue was inserted into sliding scale. Patient is receiving oxygen via nasal cannula at 4 L her pulse ox is 92% patient does not s eem to be in any distress her temperature heart rates respiration rate and blood pressure are in normal range white blood count is 3.8 potassium 4.8 Objective - Vital Signs Vital signs: Vital Signs Temp 98.2 F 01/01/20 08:45 Pulse 76 01/01/20 08:45 Resp 18 01/01/20 08:45 BP 125/63 01/01/20 08:45 Pulse Ox 92 L 01/01/20 08:45 Intake & Output 12/31/19 01/01/20 01/01/20 18:59 06:59 18:59 Intake Total 101.000 2.083 Output Total 0 Balance 101.000 2.083 Weight 80.5 kg Intake: Intake, IV Titration 101.000 2.083 Amount Insulin Regular 100 unit 101.000 2.083 In Sodium Chloride 0.9% 100 ml @ Titrate IV .Q0M [facility] Rx#:[id number] Output: Urine 0 Other: Voiding Method Incontinent # Voids 1 - Exam In general patient is somnolent nonverbal in no apparent distress HEENT head normocephalic and atraumatic Neck is supple no JVD no goiter no lymphadenopathy Chest exam reveals a few scattered crackles no wheezing Cardiac exam reveals regular heart sounds no gallops no murmurs Abdomen is soft nontender no organomegaly with normal bowel sounds Extremity exam reveals no edema no cyanosis or clubbing - Labs CBC & Chem 7: 01/01/20 05:42 01/01/20 05:42 Labs: Abnormal Lab Results - Last 24 Hours (Table) 12/31/19 12/31/19 12/31/19 Range/Units 14:27 16:37 18:11 Hct (34.0-46.0) % MCHC (31.0-37.0) g/dL Plt Count (150-450) k/uL Lymphocytes # (1.0-4.8) k/uL Chloride (98-107) mmol/L BUN (7-17) mg/dL Glucose (74-99) mg/dL POC Glucose (mg/dL) 185 H 139 H 138 H (75-99) mg/dL Total Protein (6.3-8.2) g/dL Albumin (3.5-5.0) g/dL 12/31/19 01/01/20 01/01/20 Range/Units 20:36 05:42 05:42 Hct 49.4 H (34.0-46.0) % MCHC 30.8 L (31.0-37.0) g/dL Plt Count 78 L (150-450) k/uL Lymphocytes # 0.6 L (1.0-4.8) k/uL Chloride 109 H (98-107) mmol/L BUN 39 H (7-17) mg/dL Glucose 421 H (74-99) mg/dL POC Glucose (mg/dL) 167 H (75-99) mg/dL Total Protein 5.8 L (6.3-8.2) g/dL Albumin 2.7 L (3.5-5.0) g/dL 01/01/20 01/01/20 Range/Units 05:49 11:47 Hct (34.0-46.0) % MCHC (31.0-37.0) g/dL Plt Count (150-450) k/uL Lymphocytes # (1.0-4.8) k/uL Chloride (98-107) mmol/L BUN (7-17) mg/dL Glucose (74-99) mg/dL POC Glucose (mg/dL) 391 H 327 H (75-99) mg/dL Total Protein (6.3-8.2) g/dL Albumin (3.5-5.0) g/dL Microbiology - Last 24 Hours (Table) 12/28/19 17:53 Blood Culture - Preliminary Blood No Growth after 72 hours Assessment and Plan Plan: #1 pneumonia likely related to COVID 19 viral pneumonitis #2 severe hypernatremia with sodium of 151 now corrected down to 141 #3 mental status changes likely related to hypernatremia and metabolic encephalopathy related to infection #4 acute hypoxic respiratory failure related to pneumonia, requiring oxygen at 4 L nasal cannula at this time #5 underlying history of hypertension #6 underlying history of COPD #7 underlying history of insulin-dependent diabetes mellitus millimeters #8 underlying history of stroke with right sided paralysis #9 chronic dysphagia and aspiration requiring PEG tube feeding #10 underlying history of atrial fibrillation maintained on Xarelto #11 vaginal bleeding, at this time will monitor closely, will check daily CBC, and monitor for amount of bleeding. Once her current illness has subsided, will investigate further with pelvic ultrasound and RED CROSS EXECUTIVE DIRECTOR consult. #12 hyperkalemia, potassium on 12/31/2019 is elevated at 5.8 patient will receive 1 dose of Kayexalate 15 g by mouth today At this time patient is admitted to telemetry floor, detention medication were reordered Patient was started on IV Zithromax and oxygen supplements Consultation for pulmonary and infectious disease requested in the emergency room Will follow closely Prognosis is guarded due to multiple underlying comorbid conditions
[2020-01-01 17:29] LABS: Glucose,Whole Blood 176 mg/dL (75-99)
[2020-01-01] MEDS: RIVAROXABAN 10 MG TAB PO SCH (20:17)
[2020-01-01] MEDS: FERROUS SULFATE 325 MG TAB PO SCH (20:17)
[2020-01-01] MEDS: cloNIDine HCL 0.1 MG TAB PEG/G-TUBE SCH (20:17)
[2020-01-01] MEDS: PRAVASTATIN SODIUM 20 MG TAB PEG/G-TUBE SCH (20:17)
[2020-01-01 20:50] LABS: Glucose,Whole Blood 168 mg/dL (75-99)
[2020-01-01] MEDS: INSULIN DETEMIR (LEVEMIR) 100 UNIT/ML SYR SQ SCH (21:30)
--- NOTE | 2020-01-01 22:19 | PN ---
PROGRESS NOTE DATE OF SERVICE: 01/01/2020 REASON FOR FOLLOWUP: Acute Covid-19 pneumonia. INTERVAL HISTORY: The patient is currently afebrile. She was noticed to be more awake and alert, however, did not provide any history. No vomiting or diarrhea has been reported. PHYSICAL EXAMINATION: On admission, blood pressure 114/57 with a pulse of 67, temperature 98.1. She is 93% on 4 L nasal cannula. General description is an elderly female lying in bed in no distress. Respiratory system: Unlabored breathing, decreased breath sounds in the bases. No wheeze. Heart S1, S2. Regular rate and rhythm. Abdomen soft, no tenderness. LABS: Hemoglobin 13.1, white count 3.8. BUN of 39, creatinine 0.90. Blood culture has been negative. DIAGNOSTIC IMPRESSION AND PLAN: Patient with acute COVID-19 pneumonia. The patient seems to have shown some clinical improvement. Currently on Plaquenil and zinc, to continue and we will monitor clinical course closely. Continue supportive care. MMODL / IJN: [id number] /
[2020-01-02] MEDS: PIPERACILLIN-TAZOBACTAM 3.375 GM in SODIUM CHLORIDE 0.9% 100 ML IVPB SCH ×4 (00:23→23:30)
[2020-01-02 06:21] LABS: Glucose,Whole Blood 165 mg/dL (75-99)
[2020-01-02] MEDS: INSULIN ASPART (NovoLOG) 100 UNIT/ML VIAL SQ SCH ×7 (06:36→20:40)
[2020-01-02 07:03] LABS: ALT 27 U/L (4-34); AST 38 U/L (14-36); African American GFR (CKD) >90 (>60 ml/min/1.73 sqM); Albumin 2.9 g/dL (3.5-5.0); Alkaline Phosphatase 93 U/L (38-126); Anion Gap 5 mmol/L; Blood Urea Nitrogen 22 mg/dL (7-17); Calcium 9.5 mg/dL (8.4-10.2); Carbon Dioxide 33 mmol/L (22-30); Chloride 109 mmol/L (98-107); Glucose 176 mg/dL (74-99); Non-African American GFR(CKD) 83 (>60 ml/min/1.73 sqM); Potassium 3.6 mmol/L (3.5-5.1); Sodium 147 mmol/L (137-145); Total Bilirubin 0.4 mg/dL (0.2-1.3); Total Protein 6.4 g/dL (6.3-8.2)
[2020-01-02] MEDS: ALBUTEROL HFA INHALER INHALATION SCH ×4 (07:12→18:43)
[2020-01-02 07:33] LABS: Basophils % (A) 1 %; Eosinophils % (A) 0 %; HCT 52.5 % (34.0-46.0); HGB 17.1 gm/dL (11.4-16.0); Lymphocytes % (A) 12 %; MCH 30.9 pg (25.0-35.0); MCHC 32.5 g/dL (31.0-37.0); MCV 95.1 fL (80.0-100.0); Mean Platelet Volume 11.9; Monocytes # (A) 0.4 k/uL (0-1.0); Monocytes % (A) 5 %; Neutrophils % (A) 82 %; Platelet Count 89 k/uL (150-450); RBC 5.52 m/uL (3.80-5.40); RDW 13.4 % (11.5-15.5); WBC 8.6 k/uL (3.8-10.6)
[2020-01-02 08:41] LABS: Large Platelets Present
[2020-01-02] MEDS: AZITHROMYCIN 500 MG in SODIUM CHLORIDE 0.9% 250 ML IVPB SCH (09:18)
[2020-01-02] MEDS: HYDROXYCHLOROQUINE SULFATE 200 MG TAB PO SCH (09:21)
[2020-01-02] MEDS: ZINC SULFATE 220 MG CAP PO SCH (09:21)
[2020-01-02] MEDS: METOPROLOL TARTRATE 50 MG TAB PEG/G-TUBE SCH ×2 (09:21→20:39)
[2020-01-02] MEDS: CHOLECALCIFEROL 1,000 UNIT TAB PEG/G-TUBE SCH (09:21)
[2020-01-02] MEDS: methylPREDNISolone SOD SUCCI 40 MG/ML 1 ML VIAL IV SCH (09:28)
[2020-01-02] MEDS ORDERED: FUROSEMIDE 10 MG/ML 4 ML VIAL IV STA (11:27)
[2020-01-02] MEDS: amLODIPine 10 MG TAB PEG/G-TUBE SCH (12:14)
[2020-01-02 12:45] LABS: Glucose,Whole Blood 272 mg/dL (75-99)
--- NOTE | 2020-01-02 13:08 | XR ---
EXAMINATION TYPE: XR chest 1V portable DATE OF EXAM: 01/02/2020 COMPARISON: 12/30/2019 INDICATION: Low O2 sats TECHNIQUE: Single frontal view of the chest is obtained. FINDINGS: The heart size is mildly prominent. The pulmonary vasculature is normal. There is improved left lower lobe infiltrate. Silhouetting left diaphragm remains present. There is f ullness at the right hilar region. Some mild increased central lung markings are present more so on t he right hilar region. IMPRESSION: 1. Left lower lobe and mild right perihilar infiltrates. Right perihilar lung markings may be worseni ng.
--- NOTE | 2020-01-02 14:04 | P.PN ---
Subjective Progress Note Date: 01/02/20 Soledad Enriquez, is an 79-year-old female who resides at a retirement at this time will was noticed to have worsening mental status and persistent cough, patient started having elevated temperature up to 101 at that point she was sent to [facility] emergency room she had testing for influenza A and B which were negative she also had an instant test for Covid 19 which was positive she was admitted to telemetry floor she was started on IV Zithromax pulmonary and infectious disease consultation were requested. Patient also had evidence of dehydration with hypernatremia elevated sodium level at 151. Patient has a known history of multiple medical problems including history of stroke with right sided paralysis, history of aspiration patient has a PEG tube for feeding, history of insulin-dependent diabetes mellitus, history of hypertension, history of hyperlipidemia, and history of paroxysmal atrial fibrillation. On presentation patient had a temperature of 101 pulse of 82 respiration 18 blood pressure 119/63 and pulse ox of 91% on 4 L nasal cannula. White blood count was 4.8 chest x-ray revealed evidence of left basilar opacity. On 12/30/2019 patient was seen and examined on the medical floor she is somnolent responsive in no apparent distress there is low-grade fever temperature is 100.8 there is no chills no headache or dizziness no chest pain no shortness of breath no cough no nausea or vomiting no abdominal pain no diarrhea and no burning was urination. Nurse noticed some vaginal bleeding, hemoglobin is stable at 15. Pulse ox is 96% on 4 L nasal cannula , On 12/31/2019 patient was seen and examined on the medical floor she is somnolent responsive in no apparent distress, her fever is subsiding temperatures this morning 99 pulse ox is 92% on 4 L nasal cannula, patient is denying any complaints at this time however, she does not seem to be listening much to the questions, and she goes back to sleep fast. White blood count today is normal at 4.1 hemoglobin is 15.2 potassium is elevated at 5.8 On 01/01/2020 patient was seen and examined on the medical floor she is more alert and responsive today there is no fever or chills no headache or dizziness no chest pain no shortness of breath no cough no nausea or vomiting no abdominal pain no diarrhea and no urinary symptoms, she is receiving feeding through PEG tube at night, glucose level is elevated again, will increase Lantus dose to 25 units at bedtime, and continue was inserted into sliding scale. Patient is receiving oxygen via nasal cannula at 4 L her pulse ox is 92% patient does not s eem to be in any distress her temperature heart rates respiration rate and blood pressure are in normal range white blood count is 3.8 potassium 4.8 On 01/02/2020 patient was seen and examined on the medical floor she is alert and responsive in no apparent distress. This morning patient had an episode of shortness of breath with decreased O2 sat duration A team was called patient received IV Lasix Sands catheter was inserted chest x-ray was done. Currently patient is doing better pulse ox is 92% on 4 L nasal cannula Objective - Vital Signs Vital signs: Vital Signs Temp 99.2 F 01/02/20 12:00 Pulse 95 01/02/20 12:16 Resp 24 01/02/20 12:00 BP 100/61 01/02/20 12:00 Pulse Ox 92 L 01/02/20 12:16 Intake & Output 01/01/20 01/02/20 01/02/20 18:59 06:59 18:59 Intake Total 900 Balance 900 Weight 80 kg 80 kg Intake: Tube Feeding 900 Other: Voiding Method Incontinent Incontinent # Bowel Movements 2 - Exam In general patient is somnolent nonverbal in no apparent distress HEENT head normocephalic and atraumatic Neck is supple no JVD no goiter no lymphadenopathy Chest exam reveals a few scattered crackles no wheezing Cardiac exam reveals regular heart sounds no gallops no murmurs Abdomen is soft nontender no organomegaly with normal bowel sounds Extremity exam reveals no edema no cyanosis or clubbing - Labs CBC & Chem 7: 01/02/20 06:34 01/02/20 06:34 Labs: Abnormal Lab Results - Last 24 Hours (Table) 01/01/20 01/01/20 01/02/20 Range/Units 17:15 20:49 06:20 RBC (3.80-5.40) m/uL Hgb (11.4-16.0) gm/dL Hct (34.0-46.0) % Plt Count (150-450) k/uL Sodium (137-145) mmol/L Chloride (98-107) mmol/L Carbon Dioxide (22-30) mmol/L BUN (7-17) mg/dL Glucose (74-99) mg/dL POC Glucose (mg/dL) 176 H 168 H 165 H (75-99) mg/dL AST (14-36) U/L Albumin (3.5-5.0) g/dL 01/02/20 01/02/20 01/02/20 Range/Units 06:34 06:34 12:20 RBC 5.52 H (3.80-5.40) m/uL Hgb 17.1 H (11.4-16.0) gm/dL Hct 52.5 H (34.0-46.0) % Plt Count 89 L (150-450) k/uL Sodium 147 H (137-145) mmol/L Chloride 109 H (98-107) mmol/L Carbon Dioxide 33 H (22-30) mmol/L BUN 22 H (7-17) mg/dL Glucose 176 H (74-99) mg/dL POC Glucose (mg/dL) 272 H (75-99) mg/dL AST 38 H (14-36) U/L Albumin 2.9 L (3.5-5.0) g/dL Microbiology - Last 24 Hours (Table) 12/28/19 17:53 Blood Culture - Preliminary Blood No Growth after 96 hours Assessment and Plan Plan: #1 pneumonia likely related to COVID 19 viral pneumonitis #2 severe hypernatremia with sodium of 151 now corrected down to 141 #3 mental status changes likely related to hypernatremia and metabolic encephalopathy related to infection #4 acute hypoxic respiratory failure related to pneumonia, requiring oxygen at 4 L nasal cannula at this time #5 underlying history of hypertension #6 underlying history of COPD #7 underlying history of insulin-dependent diabetes mellitus millimeters #8 underlying history of stroke with right sided paralysis #9 chronic dysphagia and aspiration requiring PEG tube feeding #10 underlying history of atrial fibrillation maintained on Xarelto #11 vaginal bleeding, at this time will monitor closely, will check daily CBC, and monitor for amount of bleeding. Once her current illness has subsided, will investigate further with pelvic ultrasound and SUPERVISOR KENNEL consult. #12 hyperkalemia, potassium on 12/31/2019 is elevated at 5.8 patient will rec eive 1 dose of Kayexalate 15 g by mouth today At this time patient is admitted to telemetry floor, retirement medication were reordered Patient was started on IV Zithromax and oxygen supplements Consultation for pulmonary and infectious disease requested in the emergency room Will follow closely Prognosis is guarded due to multiple underlying comorbid conditions
--- NOTE | 2020-01-02 14:37 | P.PN ---
Subjective Progress Note Date: 01/02/20 Principal diagnosis: Acute hypoxic respiratory failure COVID 19 pneumonia Aspiration pneumonia likely mixed bacterial and/or or gram-negative related Chronic right-sided weakness dysphagia and aphasia status post PEG tube COPD Insulin-dependent diabetes mellitus uncontrolled Hypertension hypertensive cardiovascular disease Chronic atrial fibrillation on anticoagulation with XERALTO 01/02/2020, patient seen eval examined during the rounds patient has a rapid response this morning with the shortness of breath she however responded well with Lasix, Sands's catheter has been placed, shortness of breath have improved though, on 4 L saturation is 92% low-grade temperature of 99 is present, her chest x-ray assistive of the left lower lobe pneumonia and right perihilar i nfiltrate prominent lung markings likely fluid overload, Objective - Vital Signs Vital signs: Vital Signs Temp 99.2 F 01/02/20 12:00 Pulse 95 01/02/20 12:16 Resp 24 01/02/20 12:00 BP 100/61 01/02/20 12:00 Pulse Ox 92 L 01/02/20 12:16 Intake & Output 01/01/20 01/02/20 01/02/20 18:59 06:59 18:59 Intake Total 900 Balance 900 Weight 80 kg 80 kg Intake: Tube Feeding 900 Other: Voiding Method Incontinent Incontinent # Bowel Movements 2 - Exam This is an 79-year-old -[place] female patient well-known to sd resident of [facility]. Due to prior stroke patient is unable to contribute to her history, her history was obtained from her chart. Her past medical history is significant for paroxysmal atrial fibrillation, asthma, chronic struck a pulmonary disease, right-sided paralysis secondary to CVA/TIA, hyper tension, hyperlipidemia, anemia of chronic disease, insulin-dependent diabetes mellitus, osteoarthritis, chronic debilitation, nonambulatory and is chronically nothing by mouth with a PEG tube in place for tube feedings. She presented to the emergency department here at [facility] via EMS with a persistent cough. She was found to be febrile and hypoxic with her oxygen saturations in the 80s. In the emergency department her T-max temperature was 101F, and her oxygen saturation saturations were 91% on 4 L nasal cannula. A 12-lead EKG was completed which showed normal sinus rhythm heart rate 86 BPM. A chest x-ray was completed which demonstrated a left basilar opacity obscuring the left hemidiaphragm. Initial lab results showed a WBC count 5.3, Hgb 16.6, platelets 107, d-dimer 1.13, sodium 148, chloride 110, CO2 33, BUN 45, creatinine 0.83, glucose 357, ferritin 360.5, AST 59, ALT 61, and her LDH was 1053. She was tested for influenza a and B which were not detected and she was also tested for COVID 19 which was a positive result. - Labs CBC & Chem 7: 01/02/20 06:34 01/02/20 06:34 Labs: Abnormal Lab Results - Last 24 Hours (Table) 01/01/20 01/01/20 01/02/20 Range/Units 17:15 20:49 06:20 RBC (3.80-5.40) m/uL Hgb (11.4-16.0) gm/dL Hct (34.0-46.0) % Plt Count (150-450) k/uL Sodium (137-145) mmol/L Chloride (98-107) mmol/L Carbon Dioxide (22-30) mmol/L BUN (7-17) mg/dL Glucose (74-99) mg/dL POC Glucose (mg/dL) 176 H 168 H 165 H (75-99) mg/dL AST (14-36) U/L Albumin (3.5-5.0) g/dL 01/02/20 01/02/20 01/02/20 Range/Units 06:34 06:34 12:20 RBC 5.52 H (3.80-5.40) m/uL Hgb 17.1 H (11.4-16.0) gm/dL Hct 52.5 H (34.0-46.0) % Plt Count 89 L (150-450) k/uL Sodium 147 H (137-145) mmol/L Chloride 109 H (98-107) mmol/L Carbon Dioxide 33 H (22-30) mmol/L BUN 22 H (7-17) mg/dL Glucose 176 H (74-99) mg/dL POC Glucose (mg/dL) 272 H (75-99) mg/dL AST 38 H (14-36) U/L Albumin 2.9 L (3.5-5.0) g/dL Microbiology - Last 24 Hours (Table) 12/28/19 17:53 Blood Culture - Preliminary Blood No Growth after 96 hours Assessment and Plan Assessment: Acute hypoxic respiratory failure COVID 19 pneumonia Fluid overload responded with Lasix Hypernatremia now improved Aspiration pneumonia likely mixed bacterial and/or or gram-negative related Chronic right-sided weakness dysphagia and aphasia status post PEG tube COPD Insulin-dependent diabetes mellitus uncontrolled Hypertension hypertensive cardiovascular disease Chronic atrial fibrillation on anticoagulation with XERALTO Plan: Continue gentle diuresis Monitor sodium levels closely Continue respiratory and contact isolation Agree with continuation of Zithromax and Zosyn for likely bacterial pneumonia aspiration related Consider stopping Solu-Medrol Time with Patient: Greater than 30
--- NOTE | 2020-01-02 15:07 | PN ---
PROGRESS NOTE DATE OF SERVICE: 01/02/2020 REASON FOR FOLLOWUP: 1. Acute COVID-19 pneumonia. 2. Possible aspiration pneumonia. 3. UTI. INTERVAL HISTORY: The patient did have a change in her clinical condition. She has been noted to be slightly lethargic and A team was called and patient did receive a dose of Lasix. She is currently lethargic, though does respond to the name. No vomiting, however, she has developed diarrhea and significantly cloudy, dark urine at the time of Sands insertion. PHYSICAL EXAMINATION: Blood pressure 138/66, pulse of 98, temperature 98.8. She is 94% on 4 liters nasal cannula. General description is an elderly female lying in bed in no distress. RESPIRATORY SYSTEM: Unlabored breathing. Decreased breath sounds at the bases. No wheeze. HEART: S1, S2. Regular rate and rhythm. ABDOMEN: Soft. No tenderness. LABS: Hemoglobin 17.1, white count 8.6. BUN of 22, creatinine 0.68. Chest x-ray: Left lower lobe and mild right perihilar infiltrate. DIAGNOSTIC IMPRESSION AND PLAN: 1. Patient admitted to the hospital with acute COVID-19 pneumonia with concern for possible secondary bacterial. Patient is currently covered with Zithromax, Plaquenil, and Solu-Medrol that can be tapered off, in addition to zinc. 2. Possible aspiration pneumonia and urinary tract infection. Covered with Zosyn, to continue. We will monitor clinical course closely. LIU / ROBELN: [id number] / MTDD
[2020-01-02 16:41] LABS: Glucose,Whole Blood 293 mg/dL (75-99)
[2020-01-02] MEDS: SODIUM CHLORIDE 0.45% 1,000 ML IV SCH ×2 (16:42→23:29)
[2020-01-02] MEDS: LISINOPRIL 10 MG TAB PEG/G-TUBE SCH (16:43)
[2020-01-02 20:06] LABS: Glucose,Whole Blood 228 mg/dL (75-99)
[2020-01-02] MEDS: PRAVASTATIN SODIUM 20 MG TAB PEG/G-TUBE SCH (20:39)
[2020-01-02] MEDS: RIVAROXABAN 10 MG TAB PO SCH (20:39)
[2020-01-02] MEDS: cloNIDine HCL 0.1 MG TAB PEG/G-TUBE SCH (20:39)
[2020-01-02] MEDS: FERROUS SULFATE 325 MG TAB PO SCH (20:39)
[2020-01-02] MEDS: INSULIN DETEMIR (LEVEMIR) 100 UNIT/ML SYR SQ SCH (20:40)
[2020-01-03 06:06] LABS: Glucose,Whole Blood 249 mg/dL (75-99)
[2020-01-03] MEDS: INSULIN ASPART (NovoLOG) 100 UNIT/ML VIAL SQ SCH ×8 (06:06→22:16)
[2020-01-03] MEDS: ALBUTEROL HFA INHALER INHALATION SCH ×4 (07:12→19:47)
[2020-01-03] MEDS: FUROSEMIDE 10 MG/ML 4 ML VIAL IV SCH (08:49)
[2020-01-03] MEDS: PIPERACILLIN-TAZOBACTAM 3.375 GM in SODIUM CHLORIDE 0.9% 100 ML IVPB SCH ×2 (08:49→18:09)
[2020-01-03] MEDS: LISINOPRIL 10 MG TAB PEG/G-TUBE SCH (08:49)
[2020-01-03] MEDS: CHOLECALCIFEROL 1,000 UNIT TAB PEG/G-TUBE SCH (08:49)
[2020-01-03] MEDS: ZINC SULFATE 220 MG CAP PO SCH (08:50)
[2020-01-03] MEDS: METOPROLOL TARTRATE 50 MG TAB PEG/G-TUBE SCH ×2 (08:50→21:56)
[2020-01-03] MEDS: amLODIPine 10 MG TAB PEG/G-TUBE SCH (08:50)
[2020-01-03 11:43] LABS: Glucose,Whole Blood 75 mg/dL (75-99)
[2020-01-03] MEDS: AZITHROMYCIN 500 MG in SODIUM CHLORIDE 0.9% 250 ML IVPB SCH (13:07)
--- NOTE | 2020-01-03 15:29 | PN ---
PROGRESS NOTE DATE OF SERVICE: 01/03/2020 REASON FOR FOLLOWUP: 1. Acute COVID-19 pneumonia. 2. Possible UTI. INTERVAL HISTORY: The patient is currently afebrile. The patient is currently on nasal cannula oxygen. She does not seem to be in any distress. Was unable to provide any history. PHYSICAL EXAMINATION: Blood pressure 120/63 with a pulse of 88, temperature 98.3. She is 94% on 6 liters nasal cannula. General description is an elderly female lying in bed in no distress. RESPIRATORY SYSTEM: Unlabored breathing. Clear to auscultation anteriorly. HEART: S1, S2. Regular rate and rhythm. ABDOMEN: Soft. No tenderness. LABS: Hemoglobin 17.1, white count 8.6. BUN of 22, creatinine 0.86. Urine is pending. Blood culture so far negative. X-ray done yesterday: Left lower lobe and perihilar infiltrate. Diagnostic. DIAGNOSTIC IMPRESSION AND PLAN: Patient with acute COVID-19 pneumonia with concern for possible aspiration pneumonitis. Patient is currently covered with Plaquenil, azithromycin, and Zosyn to continue and we will monitor clinical course closely. Continue with supportive care. MMODL / IJN: [id number] /
--- NOTE | 2020-01-03 16:32 | P.PN ---
Subjective Progress Note Date: 01/03/20 Soledad Enriquez, is an 79-year-old female who resides at a retirement at this time will was noticed to have worsening mental status and persistent cough, patient started having elevated temperature up to 101 at that point she was sent to [facility] emergency room she had testing for influenza A and B which were negative she also had an instant test for Covid 19 which was positive she was admitted to telemetry floor she was started on IV Zithromax pulmonary and infectious disease consultation were requested. Patient also had evidence of dehydration with hypernatremia elevated sodium level at 151. Patient has a known history of multiple medical problems including history of stroke with right sided paralysis, history of aspiration patient has a PEG tube for feeding, history of insulin-dependent diabetes mellitus, history of hypertension, history of hyperlipidemia, and history of paroxysmal atrial fibrillation. On presentation patient had a temperature of 101 pulse of 82 respiration 18 blood pressure 119/63 and pulse ox of 91% on 4 L nasal cannula. White blood count was 4.8 chest x-ray revealed evidence of left basilar opacity. On 12/30/2019 patient was seen and examined on the medical floor she is somnolent responsive in no apparent distress there is low-grade fever temperature is 100.8 there is no chills no headache or dizziness no chest pain no shortness of breath no cough no nausea or vomiting no abdominal pain no diarrhea and no burning was urination. Nurse noticed some vaginal bleeding, hemoglobin is stable at 15. Pulse ox is 96% on 4 L nasal cannula , On 12/31/2019 patient was seen and examined on the medical floor she is somnolent responsive in no apparent distress, her fever is subsiding temperatures this morning 99 pulse ox is 92% on 4 L nasal cannula, patient is denying any complaints at this time however, she does not seem to be listening much to the questions, and she goes back to sleep fast. White blood count today is normal at 4.1 hemoglobin is 15.2 potassium is elevated at 5.8 On 01/01/2020 patient was seen and examined on the medical floor she is more alert and responsive today there is no fever or chills no headache or dizziness no chest pain no shortness of breath no cough no nausea or vomiting no abdominal pain no diarrhea and no urinary symptoms, she is receiving feeding through PEG tube at night, glucose level is elevated again, will increase Lantus dose to 25 units at bedtime, and continue was inserted into sliding scale. Patient is receiving oxygen via nasal cannula at 4 L her pulse ox is 92% patient does not s eem to be in any distress her temperature heart rates respiration rate and blood pressure are in normal range white blood count is 3.8 potassium 4.8 On 01/02/2020 patient was seen and examined on the medical floor she is alert and responsive in no apparent distress. This morning patient had an episode of shortness of breath with decreased O2 sat duration A team was called patient received IV Lasix Sands catheter was inserted chest x-ray was done. Currently patient is doing better pulse ox is 92% on 4 L nasal cannula. On 01/03/2020 patient was seen and examined on the medical floor she is alert responsive in no apparent distress, her pulse ox is 92% on 6 L nasal cannula she is afebrile blood pressure is 123/87 chest x-ray done yesterday reveals left lower lobe infiltrate and right perihilar infiltrates. Without significant improvement from prior x-rays. Objective - Vital Signs Vital signs: Vital Signs Temp 98.3 F 01/03/20 11:13 Pulse 88 01/03/20 11:13 Resp 18 01/03/20 11:13 BP 120/63 01/03/20 11:13 Pulse Ox 94 L 01/03/20 11:13 Intake & Output 01/02/20 01/03/20 01/03/20 18:59 06:59 18:59 Intake Total 2700 Output Total 600 200 Balance -600 2500 Weight 80 kg 78.9 kg Intake: IV 1300 Piperacillin-Tazobactam 3 300 .375 gm In Sodium Chloride 0.9% 100 ml @ 25 mls/hr IVPB Q8HR [facility] Rx# :[id number] Sodium Chloride 0.45% 1, 1000 000 ml @ 75 mls/hr IV . [id number] [facility] Rx#:[id number] Intake, IV Titration 600 Amount Sodium Chloride 0.45% 1, 600 000 ml @ 75 mls/hr IV . [id number] [facility] Rx#:[id number] Tube Feeding 800 Output: Urine 600 200 Other: Voiding Method Indwelling Catheter Indwelling Catheter Indwelling Catheter # Bowel Movements 2 1 1 - Exam In general patient is somnolent nonverbal in no apparent distress HEENT head normocephalic and atraumatic Neck is supple no JVD no goiter no lymphadenopathy Chest exam reveals a few scattered crackles no wheezing Cardiac exam reveals regular heart sounds no gallops no murmurs Abdomen is soft nontender no organomegaly with normal bowel sounds Extremity exam reveals no edema no cyanosis or clubbing - Labs CBC & Chem 7: 01/02/20 06:34 01/02/20 06:34 Labs: Abnormal Lab Results - Last 24 Hours (Table) 01/02/20 01/02/20 01/03/20 Range/Units 16:37 19:56 06:03 POC Glucose (mg/dL) 293 H 228 H 249 H (75-99) mg/dL Microbiology - Last 24 Hours (Table) 12/28/19 17:53 Blood Culture - Preliminary Blood No Growth after 120 hours 01/02/20 11:53 Urine Culture - Preliminary Urine,Catheterized Assessment and Plan Plan: #1 pneumonia likely related to COVID 19 viral pneumonitis #2 severe hypernatremia with sodium of 151 now corrected down to 141 #3 mental status changes likely related to hypernatremia and metabolic encephalopathy related to infection #4 acute hypoxic respiratory failure related to pneumonia, requiring oxygen at 4 L nasal cannula at this time #5 underlying history of hypertension #6 underlying history of COPD #7 underlying history of insulin-dependent diabetes mellitus millimeters #8 underlying history of stroke with right sided paralysis #9 chronic dysphagia and aspiration requiring PEG tube feeding #10 underlying history of atrial fibrillation maintained on Xarelto #11 vaginal bleeding, at this time will monitor closely, will check daily CBC, and monitor for amount of bleeding. Once her current illness has subsided, will investigate further with pelvic ultrasound and FACILITY PRACTICE SPECIALIST consult. #12 hyperkalemia, potassium on 12/31/2019 is elevated at 5.8 patient will receive 1 dose of Kayexalate 15 g by mouth today At this time patient is admitted to telemetry floor, [facility] were [facility] Patient was started on IV Zithromax and oxygen supplements Consultation for pulmonary and infectious disease requested in the emergency room and are following patient's Will follow closely Prognosis is guarded due to multiple underlying comorbid conditions
[2020-01-03 17:34] LABS: Glucose,Whole Blood 88 mg/dL (75-99)
[2020-01-03] MEDS: SODIUM CHLORIDE 0.45% 1,000 ML IV SCH (18:09)
[2020-01-03 20:03] LABS: Glucose,Whole Blood 146 mg/dL (75-99)
[2020-01-03] MEDS: FERROUS SULFATE 325 MG TAB PO SCH (21:55)
[2020-01-03] MEDS: PRAVASTATIN SODIUM 20 MG TAB PEG/G-TUBE SCH (21:56)
[2020-01-03] MEDS: cloNIDine HCL 0.1 MG TAB PEG/G-TUBE SCH (21:57)
[2020-01-03] MEDS: RIVAROXABAN 10 MG TAB PO SCH (22:12)
[2020-01-03] MEDS: INSULIN DETEMIR (LEVEMIR) 100 UNIT/ML SYR SQ SCH (22:15)
[2020-01-04] MEDS: PIPERACILLIN-TAZOBACTAM 3.375 GM in SODIUM CHLORIDE 0.9% 100 ML IVPB SCH ×4 (01:30→23:16)
[2020-01-04] MEDS ORDERED: FUROSEMIDE 10 MG/ML 2 ML VIAL IV STA (04:46)
[2020-01-04 06:15] LABS: Glucose,Whole Blood 297 mg/dL (75-99)
[2020-01-04] MEDS: INSULIN ASPART (NovoLOG) 100 UNIT/ML VIAL SQ SCH ×7 (06:42→20:35)
[2020-01-04 07:22] LABS: ALT 29 U/L (4-34); AST 38 U/L (14-36); African American GFR (CKD) >90 (>60 ml/min/1.73 sqM); Albumin 2.4 g/dL (3.5-5.0); Alkaline Phosphatase 91 U/L (38-126); Anion Gap 5 mmol/L; Blood Urea Nitrogen 25 mg/dL (7-17); Carbon Dioxide 28 mmol/L (22-30); Chloride 109 mmol/L (98-107); Glucose 342 mg/dL (74-99); Non-African American GFR(CKD) 82 (>60 ml/min/1.73 sqM); Potassium 3.8 mmol/L (3.5-5.1); Sodium 142 mmol/L (137-145); Total Bilirubin 0.5 mg/dL (0.2-1.3); Total Protein 5.5 g/dL (6.3-8.2)
[2020-01-04 07:51] LABS: Basophils % (A) 0 %; Eosinophils # (A) 0.1 k/uL (0-0.7); Eosinophils % (A) 1 %; HCT 48.5 % (34.0-46.0); HGB 15.8 gm/dL (11.4-16.0); Lymphocytes # (A) 0.8 k/uL (1.0-4.8); Lymphocytes % (A) 12 %; MCH 30.7 pg (25.0-35.0); MCHC 32.5 g/dL (31.0-37.0); MCV 94.2 fL (80.0-100.0); Mean Platelet Volume 11.9; Monocytes # (A) 0.3 k/uL (0-1.0); Monocytes % (A) 4 %; Neutrophils # (A) 5.2 k/uL (1.3-7.7); Neutrophils % (A) 82 %; RBC 5.15 m/uL (3.80-5.40); RDW 13.5 % (11.5-15.5); WBC 6.4 k/uL (3.8-10.6)
[2020-01-04] MEDS: SODIUM CHLORIDE 0.45% 1,000 ML IV SCH ×2 (08:06→10:34)
[2020-01-04] MEDS: ALBUTEROL HFA INHALER INHALATION SCH ×4 (08:12→19:15)
[2020-01-04] MEDS: AZITHROMYCIN 500 MG in SODIUM CHLORIDE 0.9% 250 ML IVPB SCH (09:08)
[2020-01-04] MEDS: METOPROLOL TARTRATE 50 MG TAB PEG/G-TUBE SCH ×2 (09:09→20:43)
[2020-01-04] MEDS: ZINC SULFATE 220 MG CAP PO SCH (09:09)
[2020-01-04] MEDS: amLODIPine 10 MG TAB PEG/G-TUBE SCH (09:09)
[2020-01-04] MEDS: CHOLECALCIFEROL 1,000 UNIT TAB PEG/G-TUBE SCH (09:09)
[2020-01-04] MEDS: LISINOPRIL 10 MG TAB PEG/G-TUBE SCH (09:18)
[2020-01-04] MEDS: FUROSEMIDE 10 MG/ML 4 ML VIAL IV SCH (09:23)
[2020-01-04 11:30] LABS: Large Platelets Present; Platelet Count 96 k/uL (150-450)
[2020-01-04 11:44] LABS: Glucose,Whole Blood 131 mg/dL (75-99)
--- NOTE | 2020-01-04 14:57 | P.PN ---
Subjective Progress Note Date: 01/04/20 Principal diagnosis: Acute hypoxic respiratory failure COVID 19 pneumonia Aspiration pneumonia likely mixed bacterial and/or or gram-negative related Chronic right-sided weakness dysphagia and aphasia status post PEG tube COPD Insulin-dependent diabetes mellitus uncontrolled Hypertension hypertensive cardiovascular disease Chronic atrial fibrillation on anticoagulation with XERALTO 01/04/2020, patient laying on the bed on 100% nonrebreather mask and breathing is slightly short of breath, patient is on bronchodilator along with antibiotics, has been on Lasix as well, patient remains on Zosyn, labs reviewed white cell count is normal, labs reviewed, glucose is 342, BUN/creatinine is 25 and 0.7, stool for C. difficile is negative 01/02/2020, patient seen eval examined during the rounds patient has a rapid response this morning with the shortness of breath she however responded well with Lasix, Sands's catheter has been placed, shortness of breath have improved though, on 4 L saturation is 92% low-grade temperature of 99 is present, her chest x-ray assistive of the left lower lobe pneumonia and right perihilar infiltrate prominent lung markings likely fluid overload, Objective - Vital Signs Vital signs: Vital Signs Temp 99.1 F 01/04/20 11:27 Pulse 84 01/04/20 12:00 Resp 22 01/04/20 12:00 BP 108/53 01/04/20 11:27 Pulse Ox 93 L 01/04/20 11:27 Intake & Output 01/03/20 01/04/20 01/04/20 18:59 06:59 18:59 Intake Total 1100 1000 2000 Output Total 550 400 Balance 042 152 4786 Weight 80.1 kg Intake: IV 1000 Piperacillin-Tazobactam 3 100 .375 gm In Sodium Chloride 0.9% 100 ml @ 25 mls/hr IVPB Q8HR [facility] Rx# :[id number] Sodium Chloride 0.45% 1, 900 000 ml @ 75 mls/hr IV . [id number] [facility] Rx#:[id number] Intake, IV Titration 100 Amount Azithromycin 500 mg In 100 Sodium Chloride 0.9% 250 ml @ 250 mls/hr IVPB DAILY [facility] Rx#:[id number] Tube Feeding 1000 2000 Output: Urine 550 400 Other: Voiding Method Indwelling Catheter Indwelling Catheter Indwelling Catheter # Bowel Movements 1 - Exam - Neck Neck: no lymphadenopathy, no stridor - Respiratory Scattered rhonchi throughout, diminished to her left lower lobe. Respirations are symmetrical and nonlabored. - Cardiovascular Regular rhythm and rate. S1 and S2 present, negative for S3, gallop or murmur. Trace edema to her bilateral lower extremities. - Gastrointestinal Abdomen soft and nondistended. Active bowel sounds present in all 4 abdominal quadrants. PEG tube is in place. General gastrointestinal: no organomegaly, no rigid - Integumentary Skin is warm and dry. No clubbing or cyanosis is present. Integumentary: no rash - Neurologic Open eyes with verbal stimuli. - Labs CBC & Chem 7: 01/04/20 06:23 01/04/20 06:23 Labs: Abnormal Lab Results - Last 24 Hours (Table) 01/03/20 01/04/20 01/04/20 Range/Units 20:02 06:13 06:23 Hct 48.5 H (34.0-46.0) % Plt Count 96 L (150-450) k/uL Lymphocytes # 0.8 L (1.0-4.8) k/uL Chloride (98-107) mmol/L BUN (7-17) mg/dL Glucose (74-99) mg/dL POC Glucose (mg/dL) 146 H 297 H (75-99) mg/dL AST (14-36) U/L Total Protein (6.3-8.2) g/dL Albumin (3.5-5.0) g/dL 01/04/20 01/04/20 Range/Units 06:23 11:43 Hct (34.0-46.0) % Plt Count (150-450) k/uL Lymphocytes # (1.0-4.8) k/uL Chloride 109 H (98-107) mmol/L BUN 25 H (7-17) mg/dL Glucose 342 H (74-99) mg/dL POC Glucose (mg/dL) 131 H (75-99) mg/dL AST 38 H (14-36) U/L Total Protein 5.5 L (6.3-8.2) g/dL Albumin 2.4 L (3.5-5.0) g/dL Microbiology - Last 24 Hours (Table) 12/28/19 17:53 Blood Culture - Final Blood No Growth after 144 hours Assessment and Plan Assessment: Acute hypoxic respiratory failure COVID 19 pneumonia Fluid overload responded with Lasix, will decrease the dose to 20 Hypernatremia now improved Aspiration pneumonia likely mixed bacterial and/or or gram-negative related Chronic right-sided weakness dysphagia and aphasia status post PEG tube COPD Insulin-dependent diabetes mellitus uncontrolled Hypertension hypertensive cardiovascular disease Chronic atrial fibrillation on anticoagulation with XERALTO Plan: Continue gentle diuresis Monitor sodium levels closely Continue respiratory and contact isolation Agree with continuation of Zithromax and Zosyn for likely bacterial pneumonia aspiration related Time with Patient: Greater than 30
--- NOTE | 2020-01-04 15:55 | P.PN ---
Subjective Progress Note Date: 01/04/20 Soledad Enriquez, is an 79-year-old female who resides at a retirement at this time will was noticed to have worsening mental status and persistent cough, patient started having elevated temperature up to 101 at that point she was sent to [facility] emergency room she had testing for influenza A and B which were negative she also had an instant test for Covid 19 which was positive she was admitted to telemetry floor she was started on IV Zithromax pulmonary and infectious disease consultation were requested. Patient also had evidence of dehydration with hypernatremia elevated sodium level at 151. Patient has a known history of multiple medical problems including history of stroke with right sided paralysis, history of aspiration patient has a PEG tube for feeding, history of insulin-dependent diabetes mellitus, history of hypertension, history of hyperlipidemia, and history of paroxysmal atrial fibrillation. On presentation patient had a temperature of 101 pulse of 82 respiration 18 blood pressure 119/63 and pulse ox of 91% on 4 L nasal cannula. White blood count was 4.8 chest x-ray revealed evidence of left basilar opacity. On 12/30/2019 patient was seen and examined on the medical floor she is somnolent responsive in no apparent distress there is low-grade fever temperature is 100.8 there is no chills no headache or dizziness no chest pain no shortness of breath no cough no nausea or vomiting no abdominal pain no diarrhea and no burning was urination. Nurse noticed some vaginal bleeding, hemoglobin is stable at 15. Pulse ox is 96% on 4 L nasal cannula , On 12/31/2019 patient was seen and examined on the medical floor she is somnolent responsive in no apparent distress, her fever is subsiding temperatures this morning 99 pulse ox is 92% on 4 L nasal cannula, patient is denying any complaints at this time however, she does not seem to be listening much to the questions, and she goes back to sleep fast. White blood count today is normal at 4.1 hemoglobin is 15.2 potassium is elevated at 5.8 On 01/01/2020 patient was seen and examined on the medical floor she is more alert and responsive today there is no fever or chills no headache or dizziness no chest pain no shortness of breath no cough no nausea or vomiting no abdominal pain no diarrhea and no urinary symptoms, she is receiving feeding through PEG tube at night, glucose level is elevated again, will increase Lantus dose to 25 units at bedtime, and continue was inserted into sliding scale. Patient is receiving oxygen via nasal cannula at 4 L her pulse ox is 92% patient does not s eem to be in any distress her temperature heart rates respiration rate and blood pressure are in normal range white blood count is 3.8 potassium 4.8 On 01/02/2020 patient was seen and examined on the medical floor she is alert and responsive in no apparent distress. This morning patient had an episode of shortness of breath with decreased O2 sat duration A team was called patient received IV Lasix Sands catheter was inserted chest x-ray was done. Currently patient is doing better pulse ox is 92% on 4 L nasal cannula. On 01/03/2020 patient was seen and examined on the medical floor she is alert responsive in no apparent distress, her pulse ox is 92% on 6 L nasal cannula she is afebrile blood pressure is 123/87 chest x-ray done yesterday reveals left lower lobe infiltrate and right perihilar infiltrates. Without significant improvement from prior x-rays. On 01/04/2020 patient was seen and examined on the medical floor she is more alert and responsive today he denies any pain or discomfort, her pulse ox was lower today and she was switched to a nonrebreather mask Objective - Vital Signs Vital signs: Vital Signs Temp 99.1 F 01/04/20 11:27 Pulse 84 01/04/20 12:00 Resp 22 01/04/20 12:00 BP 108/53 01/04/20 11:27 Pulse Ox 93 L 01/04/20 11:27 Intake & Output 01/03/20 01/04/20 01/04/20 18:59 06:59 18:59 Intake Total 1100 1000 2000 Output Total 550 400 Balance 805 157 0606 Weight 80.1 kg 80.1 kg Intake: IV 1000 Piperacillin-Tazobactam 3 100 .375 gm In Sodium Chloride 0.9% 100 ml @ 25 mls/hr IVPB Q8HR [facility] Rx# :[id number] Sodium Chloride 0.45% 1, 900 000 ml @ 75 mls/hr IV . [id number] [facility] Rx#:[id number] Intake, IV Titration 100 Amount Azithromycin 500 mg In 100 Sodium Chloride 0.9% 250 ml @ 250 mls/hr IVPB DAILY [facility] Rx#:[id number] Tube Feeding 1000 2000 Output: Urine 550 400 Other: Voiding Method Indwelling Catheter Indwelling Catheter Indwelling Catheter # Bowel Movements 1 - Exam In general patient is somnolent nonverbal in no apparent distress HEENT head normocephalic and atraumatic Neck is supple no JVD no goiter no lymphadenopathy Chest exam reveals a few scattered crackles no wheezing Cardiac exam reveals regular heart sounds no gallops no murmurs Abdomen is soft nontender no organomegaly with normal bowel sounds Extremity exam reveals no edema no cyanosis or clubbing - Labs CBC & Chem 7: 01/04/20 06:23 01/04/20 06:23 Labs: Abnormal Lab Results - Last 24 Hours (Table) 01/03/20 01/04/20 01/04/20 Range/Units 20:02 06:13 06:23 Hct 48.5 H (34.0-46.0) % Plt Count 96 L (150-450) k/uL Lymphocytes # 0.8 L (1.0-4.8) k/uL Chloride (98-107) mmol/L BUN (7-17) mg/dL Glucose (74-99) mg/dL POC Glucose (mg/dL) 146 H 297 H (75-99) mg/dL AST (14-36) U/L Total Protein (6.3-8.2) g/dL Albumin (3.5-5.0) g/dL 01/04/20 01/04/20 Range/Units 06:23 11:43 Hct (34.0-46.0) % Plt Count (150-450) k/uL Lymphocytes # (1.0-4.8) k/uL Chloride 109 H (98-107) mmol/L BUN 25 H (7-17) mg/dL Glucose 342 H (74-99) mg/dL POC Glucose (mg/dL) 131 H (75-99) mg/dL AST 38 H (14-36) U/L Total Protein 5.5 L (6.3-8.2) g/dL Albumin 2.4 L (3.5-5.0) g/dL Microbiology - Last 24 Hours (Table) 12/28/19 17:53 Blood Culture - Final Blood No Growth after 144 hours Assessment and Plan Plan: #1 pneumonia likely related to COVID 19 viral pneumonitis #2 severe hypernatremia with sodium of 151 now corrected down to 141 #3 mental status changes likely related to hypernatremia and metabolic encephalopathy related to infection #4 acute hypoxic respiratory failure related to pneumonia, requiring oxygen at 4 L nasal cannula at this time #5 underlying history of hypertension #6 underlying history of COPD #7 underlying history of insulin-dependent diabetes mellitus millimeters #8 underlying history of stroke with right sided paralysis #9 chronic dysphagia and aspiration requiring PEG tube feeding #10 underlying history of atrial fibrillation maintained on Xarelto #11 vaginal bleeding, at this time will monitor closely, will check daily CBC, and monitor for amount of bleeding. Once her current illness has subsided, will investigate further with pelvic ultrasound and PATROL INSPECTOR consult. #12 hyperkalemia, potassium on 12/31/2019 is elevated at 5.8 patient will receive 1 dose of Kayexalate 15 g by mouth today At this time patient is admitted to telemetry floor, [facility] medication were reordered Patient was started on IV Zithromax and oxygen supplements Consultation for pulmonary and infectious disease requested in the emergency room and are following patient's Will follow closely Prognosis is guarded due to multiple underlying comorbid conditions
[2020-01-04 17:02] LABS: Glucose,Whole Blood 114 mg/dL (75-99)
--- NOTE | 2020-01-04 17:29 | PN ---
PROGRESS NOTE DATE OF SERVICE: 01/04/2020 REASON FOR FOLLOWUP: 1. Acute COVID-19 pneumonia. 2. Aspiration pneumonitis and UTI. INTERVAL HISTORY: The patient is currently afebrile. pt with worsening respiratory status requiring more supplemental oxygen, currently on a nonrebreather. She is lethargic though responds to her name. No vomiting or any diarrhea has been reported. PHYSICAL EXAMINATION: Blood pressure 130/53 with a pulse of 84, temperature 98.1 she is 98% on continued non- rebreather. General description is an elderly female, lying in bed in no distress. RESPIRATORY SYSTEM: Unlabored breathing, decreased breath sounds in the base, with no wheeze. HEART: S1, S2. Regular rate and rhythm. ABDOMEN: Soft, no tenderness. LABS: Hemoglobin is 15.1, white count of 6.4, BUN of 25, creatinine 0.70. Blood culture has been negative. Urine is negative. DIAGNOSTIC IMPRESSION AND PLAN: 1. Patient with COVID-19 pneumonia. Patient is currently on Zithromax and zinc, completed her 5-day course of Plaquenil. 2. Patient with question of UTI: Continue to monitor clinical course closely. MMODL / IJN: [id number] / MTDD
[2020-01-04 20:11] LABS: Glucose,Whole Blood 109 mg/dL (75-99)
[2020-01-04] MEDS: FERROUS SULFATE ORAL ELIXIR 300 MG/5 ML CUP PEG/G-TUBE SCH (20:41)
[2020-01-04] MEDS: cloNIDine HCL 0.1 MG TAB PEG/G-TUBE SCH (20:43)
[2020-01-04] MEDS: RIVAROXABAN 10 MG TAB PO SCH (20:43)
[2020-01-04] MEDS: PRAVASTATIN SODIUM 20 MG TAB PEG/G-TUBE SCH (20:43)
[2020-01-04] MEDS: INSULIN DETEMIR (LEVEMIR) 100 UNIT/ML SYR SQ SCH (20:44)
[2020-01-05] MEDS: SODIUM CHLORIDE 0.45% 1,000 ML IV SCH ×2 (05:09→16:43)
[2020-01-05 06:14] LABS: Glucose,Whole Blood 102 mg/dL (75-99)
[2020-01-05] MEDS: INSULIN ASPART (NovoLOG) 100 UNIT/ML VIAL SQ SCH ×7 (06:28→21:32)
[2020-01-05] MEDS: ALBUTEROL HFA INHALER INHALATION SCH ×4 (07:47→20:13)
[2020-01-05] MEDS: FUROSEMIDE 10 MG/ML 2 ML VIAL IV SCH (08:47)
[2020-01-05] MEDS: PIPERACILLIN-TAZOBACTAM 3.375 GM in SODIUM CHLORIDE 0.9% 100 ML IVPB SCH ×2 (08:47→16:43)
[2020-01-05] MEDS: LISINOPRIL 10 MG TAB PEG/G-TUBE SCH (08:48)
[2020-01-05] MEDS: amLODIPine 10 MG TAB PEG/G-TUBE SCH (08:48)
[2020-01-05] MEDS: ZINC SULFATE 220 MG CAP PO SCH (08:48)
[2020-01-05] MEDS: CHOLECALCIFEROL 1,000 UNIT TAB PEG/G-TUBE SCH (08:48)
[2020-01-05] MEDS: METOPROLOL TARTRATE 50 MG TAB PEG/G-TUBE SCH ×2 (08:48→21:32)
[2020-01-05] MEDS: AZITHROMYCIN 500 MG in SODIUM CHLORIDE 0.9% 250 ML IVPB SCH (08:50)
[2020-01-05 11:47] LABS: Glucose,Whole Blood 156 mg/dL (75-99)
--- NOTE | 2020-01-05 15:52 | P.PN ---
Subjective Progress Note Date: 01/05/20 Principal diagnosis: Acute hypoxic respiratory failure COVID 19 pneumonia Aspiration pneumonia likely mixed bacterial and/or or gram-negative related Chronic right-sided weakness dysphagia and aphasia status post PEG tube COPD Insulin-dependent diabetes mellitus uncontrolled Hypertension hypertensive cardiovascular disease Chronic atrial fibrillation on anticoagulation with XERALTO 01/05/2020, patient seen and evaluated examined remains on nonrebreather mask, nonverbal and noncommunicative essentially no significant change in neurological condition, she remained afebrile with stable hemodynamics her oxygen saturations improved to 96% on repeat nonrebreather mask 01/04/2020, patient laying on the bed on 100% nonrebreather mask and breathing is slightly short of breath, patient is on bronchodilator along with antibiotics, has been on Lasix as well, patient remains on Zosyn, labs reviewed white cell count is normal, labs reviewed, glucose is 342, BUN/creatinine is 25 and 0.7, stool for C. difficile is negative 01/02/2020, patient seen eval examined during the rounds patient has a rapid response this morning with the shortness of breath she however responded well with Lasix, Sands's catheter has been placed, shortness of breath have improved though, on 4 L saturation is 92% low-grade temperature of 99 is present, her chest x-ray assistive of the left lower lobe pneumonia and right perihilar infiltrate prominent lung markings likely fluid overload, Objective - Vital Signs Vital signs: Vital Signs Temp 98.2 F 01/05/20 12:00 Pulse 103 H 01/05/20 15:06 Resp 18 01/05/20 15:06 BP 108/60 01/05/20 12:00 Pulse Ox 96 01/05/20 12:00 Intake & Output 01/04/20 01/05/20 01/05/20 18:59 06:59 18:59 Intake Total 3000 1125 600 Output Total 400 Balance 3000 725 600 Weight 80.1 kg 81.5 kg Intake: IV 675 Sodium Chloride 0.45% 1, 675 000 ml @ 75 mls/hr IV . [id number] [facility] Rx#:[id number] Tube Feeding 3000 450 600 Output: Urine 400 Other: Voiding Method Indwelling Catheter Indwelling Catheter Indwelling Catheter - Exam - Neck Neck: no lymphadenopathy, no stridor - Respiratory Scattered rhonchi throughout, diminished to her left lower lobe. Respirations are symmetrical and nonlabored. - Cardiovascular Regular rhythm and rate. S1 and S2 present, negative for S3, gallop or murmur. Trace edema to her bilateral lower extremities. - Gastrointestinal Abdomen soft and nondistended. Active bowel sounds present in all 4 abdominal quadrants. PEG tube is in place. General gastrointestinal: no organomegaly, no rigid - Integumentary Skin is warm and dry. No clubbing or cyanosis is present. Integumentary: no rash - Neurologic Open eyes with verbal stimuli. - Labs CBC & Chem 7: 01/04/20 06:23 01/04/20 06:23 Labs: Abnormal Lab Results - Last 24 Hours (Table) 01/04/20 01/04/20 01/05/20 Range/Units 16:39 20:09 06:12 POC Glucose (mg/dL) 114 H 109 H 102 H (75-99) mg/dL 01/05/20 Range/Units 11:46 POC Glucose (mg/dL) 156 H (75-99) mg/dL Microbiology - Last 24 Hours (Table) 01/02/20 11:53 Urine Culture - Final Urine,Catheterized Deloris glabrata Assessment and Plan Assessment: Acute hypoxic respiratory failure COVID 19 pneumonia Fluid overload responded with Lasix, will continue 20 milligrams daily Hypernatremia now improved Aspiration pneumonia likely mixed bacterial and/or or gram-negative related Chronic right-sided weakness dysphagia and aphasia status post PEG tube COPD Insulin-dependent diabetes mellitus uncontrolled Hypertension hypertensive cardiovascular disease Chronic atrial fibrillation on anticoagulation with XERALTO Plan: Continue gentle diuresis Monitor sodium levels closely Continue respiratory and contact isolation Agree with continuation of Zithromax and Zosyn for likely bacterial pneumonia aspiration related Continue nonrebreather 100% oxygen for another 24 hours if oxygen remains stable we'll start titrating it down Time with Patient: Greater than 30
--- NOTE | 2020-01-05 16:39 | P.PN ---
Subjective Progress Note Date: 01/05/20 Soledad Enriquez, is an 79-year-old female who resides at a shelter at this time will was noticed to have worsening mental status and persistent cough, patient started having elevated temperature up to 101 at that point she was sent to [facility] emergency room she had testing for influenza A and B which were negative she also had an instant test for Covid 19 which was positive she was admitted to telemetry floor she was started on IV Zithromax pulmonary and infectious disease consultation were requested. Patient also had evidence of dehydration with hypernatremia elevated sodium level at 151. Patient has a known history of multiple medical problems including history of stroke with right sided paralysis, history of aspiration patient has a PEG tube for feeding, history of insulin-dependent diabetes mellitus, history of hypertension, history of hyperlipidemia, and history of paroxysmal atrial fibrillation. On presentation patient had a temperature of 101 pulse of 82 respiration 18 blood pressure 119/63 and pulse ox of 91% on 4 L nasal cannula. White blood count was 4.8 chest x-ray revealed evidence of left basilar opacity. On 12/30/2019 patient was seen and examined on the medical floor she is somnolent responsive in no apparent distress there is low-grade fever temperature is 100.8 there is no chills no headache or dizziness no chest pain no shortness of breath no cough no nausea or vomiting no abdominal pain no diarrhea and no burning was urination. Nurse noticed some vaginal bleeding, hemoglobin is stable at 15. Pulse ox is 96% on 4 L nasal cannula , On 12/31/2019 patient was seen and examined on the medical floor she is somnolent responsive in no apparent distress, her fever is subsiding temperatures this morning 99 pulse ox is 92% on 4 L nasal cannula, patient is denying any complaints at this time however, she does not seem to be listening much to the questions, and she goes back to sleep fast. White blood count today is normal at 4.1 hemoglobin is 15.2 potassium is elevated at 5.8 On 01/01/2020 patient was seen and examined on the medical floor she is more alert and responsive today there is no fever or chills no headache or dizziness no chest pain no shortness of breath no cough no nausea or vomiting no abdominal pain no diarrhea and no urinary symptoms, she is receiving feeding through PEG tube at night, glucose level is elevated again, will increase Lantus dose to 25 units at bedtime, and continue was inserted into sliding scale. Patient is receiving oxygen via nasal cannula at 4 L her pulse ox is 92% patient does not s eem to be in any distress her temperature heart rates respiration rate and blood pressure are in normal range white blood count is 3.8 potassium 4.8 On 01/02/2020 patient was seen and examined on the medical floor she is alert and responsive in no apparent distress. This morning patient had an episode of shortness of breath with decreased O2 sat duration A team was called patient received IV Lasix Sands catheter was inserted chest x-ray was done. Currently patient is doing better pulse ox is 92% on 4 L nasal cannula. On 01/03/2020 patient was seen and examined on the medical floor she is alert responsive in no apparent distress, her pulse ox is 92% on 6 L nasal cannula she is afebrile blood pressure is 123/87 chest x-ray done yesterday reveals left lower lobe infiltrate and right perihilar infiltrates. Without significant improvement from prior x-rays. On 01/04/2020 patient was seen and examined on the medical floor she is more alert and responsive today he denies any pain or discomfort, her pulse ox was lower today and she was switched to a nonrebreather mask On 01/05/2020 patient was seen and examined on the medical floor, she is alert and responsive at this time, she is tolerating tube feeding well, she denied any pain or discomfort. Objective - Vital Signs Vital signs: Vital Signs Temp 98.2 F 01/05/20 12:00 Pulse 103 H 01/05/20 12:00 Resp 18 01/05/20 12:00 BP 108/60 01/05/20 12:00 Pulse Ox 96 01/05/20 12:00 Intake & Output 01/04/20 01/05/20 01/05/20 18:59 06:59 18:59 Intake Total 3000 1125 400 Output Total 400 Balance 3000 725 400 Weight 80.1 kg 81.5 kg Intake: IV 675 Sodium Chloride 0.45% 1, 675 000 ml @ 75 mls/hr IV . [id number] [facility] Rx#:[id number] Tube Feeding 3000 450 400 Output: Urine 400 Other: Voiding Method Indwelling Catheter Indwelling Catheter Indwelling Catheter - Exam In general patient is somnolent nonverbal in no apparent distress HEENT head normocephalic and atraumatic Neck is supple no JVD no goiter no lymphadenopathy Chest exam reveals a few scattered crackles no wheezing Cardiac exam reveals regular heart sounds no gallops no murmurs Abdomen is soft nontender no organomegaly with normal bowel sounds Extremity exam reveals no edema no cyanosis or clubbing - Labs CBC & Chem 7: 01/04/20 06:23 01/04/20 06:23 Labs: Abnormal Lab Results - Last 24 Hours (Table) 01/04/20 01/04/20 01/05/20 Range/Units 16:39 20:09 06:12 POC Glucose (mg/dL) 114 H 109 H 102 H (75-99) mg/dL 01/05/20 Range/Units 11:46 POC Glucose (mg/dL) 156 H (75-99) mg/dL Microbiology - Last 24 Hours (Table) 01/02/20 11:53 Urine Culture - Final Urine,Catheterized Deloris glabrata Assessment and Plan Plan: #1 pneumonia likely related to COVID 19 viral pneumonitis #2 severe hypernatremia with sodium of 151 now corrected down to 141 #3 mental status changes likely related to hypernatremia and metabolic encephalopathy related to infection #4 acute hypoxic respiratory failure related to pneumonia, requiring oxygen at 4 L nasal cannula at this time #5 underlying history of hypertension #6 underlying history of COPD #7 underlying history of insulin-dependent diabetes mellitus millimeters #8 underlying history of stroke with right sided paralysis #9 chronic dysphagia and aspiration requiring PEG tube feeding #10 underlying history of atrial fibrillation maintained on Xarelto #11 vaginal bleeding, at this time will monitor closely, will check daily CBC, and monitor for amount of bleeding. Once her current illness has subsided, will investigate further with pelvic ultrasound and SERVICE OR WORK DISPATCHER CHIEF consult. #12 hyperkalemia, potassium on 12/31/2019 is elevated at 5.8 patient will receive 1 dose of Kayexalate 15 g by mouth today At this time patient is admitted to telemetry floor, senior living medication were reordered Patient was started on IV Zithromax and oxygen supplements Consultation for pulmonary and infectious disease requested in the emergency room and are following patient's Will follow closely Prognosis is guarded due to multiple underlying comorbid conditions
[2020-01-05 16:40] LABS: Glucose,Whole Blood 128 mg/dL (75-99)
--- NOTE | 2020-01-05 20:14 | PN ---
PROGRESS NOTE DATE OF SERVICE: 01/05/2020 REASON FOR FOLLOWUP: Acute COVID-19 pneumonia and possible aspiration pneumonitis. INTERVAL HISTORY: The patient is currently afebrile. The patient's respiratory status is borderline, requiring a non-rebreather, with which she seems to be slightly more awake and alert today. Oral intake remains poor. No vomiting or any diarrhea has been reported. PHYSICAL EXAMINATION: Blood pressure is 108/60 with a pulse of 103, temperature 98.2. She is 97% on 15 L non- rebreather. General description is an elderly female lying in bed in no distress. RESPIRATORY SYSTEM: Unlabored breathing with decreased intensity of breath sounds. No wheeze. HEART: S1, S2. Regular rate and rhythm. ABDOMEN: Soft. No tenderness. LABS: Hemoglobin 15.8, white count 6.4. BUN of 25, creatinine 0.70. Urine has been Deloris glabrata. DIAGNOSTIC IMPRESSION AND PLAN: Patient with acute COVID-19 pneumonia in this patient who has completed her 5-day course of the Plaquenil, currently on zinc and respiratory support; to continue and will monitor her clinical course closely. MMODL / IJN: [id number] /
[2020-01-05 20:45] LABS: Glucose,Whole Blood 122 mg/dL (75-99)
[2020-01-05] MEDS: RIVAROXABAN 10 MG TAB PO SCH (21:32)
[2020-01-05] MEDS: PRAVASTATIN SODIUM 20 MG TAB PEG/G-TUBE SCH (21:32)
[2020-01-05] MEDS: FERROUS SULFATE ORAL ELIXIR 300 MG/5 ML CUP PEG/G-TUBE SCH (21:32)
[2020-01-05] MEDS: cloNIDine HCL 0.1 MG TAB PEG/G-TUBE SCH (21:32)
[2020-01-05] MEDS: INSULIN DETEMIR (LEVEMIR) 100 UNIT/ML SYR SQ SCH (21:33)
[2020-01-06 05:53] LABS: Glucose,Whole Blood 147 mg/dL (75-99)
[2020-01-06] MEDS: INSULIN ASPART (NovoLOG) 100 UNIT/ML VIAL SQ SCH ×7 (06:20→21:31)
[2020-01-06] MEDS: SODIUM CHLORIDE 0.45% 1,000 ML IV SCH ×2 (06:37→21:42)
[2020-01-06 07:21] LABS: Basophils % (A) 1 %; Eosinophils # (A) 0.1 k/uL (0-0.7); Eosinophils % (A) 2 %; HCT 47.8 % (34.0-46.0); HGB 15.3 gm/dL (11.4-16.0); Lymphocytes % (A) 20 %; MCH 30.4 pg (25.0-35.0); MCV 94.9 fL (80.0-100.0); Mean Platelet Volume 10.8; Monocytes # (A) 0.3 k/uL (0-1.0); Monocytes % (A) 6 %; Neutrophils # (A) 3.6 k/uL (1.3-7.7); Neutrophils % (A) 69 %; RBC 5.03 m/uL (3.80-5.40); RDW 13.6 % (11.5-15.5); WBC 5.2 k/uL (3.8-10.6)
[2020-01-06 07:34] LABS: Albumin 2.5 g/dL (3.5-5.0); Potassium 3.7 mmol/L (3.5-5.1); Total Bilirubin 0.8 mg/dL (0.2-1.3); Total Protein 5.6 g/dL (6.3-8.2)
[2020-01-06 07:50] LABS: Platelet Count 152 k/uL (150-450)
[2020-01-06] MEDS: ALBUTEROL HFA INHALER INHALATION SCH ×4 (08:14→20:04)
[2020-01-06] MEDS: FUROSEMIDE 10 MG/ML 2 ML VIAL IV SCH (10:17)
[2020-01-06] MEDS: METOPROLOL TARTRATE 50 MG TAB PEG/G-TUBE SCH ×2 (10:17→21:34)
[2020-01-06] MEDS: LISINOPRIL 10 MG TAB PEG/G-TUBE SCH (10:17)
[2020-01-06] MEDS: ZINC SULFATE 220 MG CAP PO SCH (10:17)
[2020-01-06] MEDS: amLODIPine 10 MG TAB PEG/G-TUBE SCH (10:17)
[2020-01-06] MEDS: CHOLECALCIFEROL 1,000 UNIT TAB PEG/G-TUBE SCH (10:17)
[2020-01-06] MEDS: ACETAMINOPHEN TAB 325 MG TAB PO PRN (10:18)
[2020-01-06 11:24] LABS: Glucose,Whole Blood 128 mg/dL (75-99)
--- NOTE | 2020-01-06 16:09 | P.PN ---
Subjective Progress Note Date: 01/06/20 Soledad Enriquez, is an 79-year-old female who [facility] a [facility] at [facility] time will was noticed to have worsening mental status and persistent cough, patient started having elevated temperature up to 101 at that point she was sent to [facility] emergency room she had testing for influenza A and B which were negative she also had an instant test for Covid 19 which was positive she was admitted to telemetry floor she was started on IV Zithromax pulmonary and infectious disease consultation were requested. Patient also had evidence of dehydration with hypernatremia elevated sodium level at 151. Patient has a known history of multiple medical problems including history of stroke with right sided paralysis, history of aspiration patient has a PEG tube for feeding, history of insulin-dependent diabetes mellitus, history of hypertension, history of hyperlipidemia, and history of paroxysmal atrial fibrillation. On presentation patient had a temperature of 101 pulse of 82 respiration 18 blood pressure 119/63 and pulse ox of 91% on 4 L nasal cannula. White blood count was 4.8 chest x-ray revealed evidence of left basilar opacity. On 12/30/2019 patient was seen and examined on the medical floor she is somnolent responsive in no apparent distress there is low-grade fever temperature is 100.8 there is no chills no headache or dizziness no chest pain no shortness of breath no cough no nausea or vomiting no abdominal pain no diarrhea and no burning was urination. Nurse noticed some vaginal bleeding, hemoglobin is stable at 15. Pulse ox is 96% on 4 L nasal cannula , On 12/31/2019 patient was seen and examined on the medical floor she is somnolent responsive in no apparent distress, her fever is subsiding temperatures this morning 99 pulse ox is 92% on 4 L nasal cannula, patient is denying any complaints at this time however, she does not seem to be listening much to the questions, and she goes back to sleep fast. White blood count today is normal at 4.1 hemoglobin is 15.2 potassium is elevated at 5.8 On 01/01/2020 patient was seen and examined on the medical floor she is more alert and responsive today there is no fever or chills no headache or dizziness no chest pain no shortness of breath no cough no nausea or vomiting no abdominal pain no diarrhea and no urinary symptoms, she is receiving feeding through PEG tube at night, glucose level is elevated again, will increase Lantus dose to 25 units at bedtime, and continue was inserted into sliding scale. Patient is receiving oxygen via nasal cannula at 4 L her pulse ox is 92% patient does not s eem to be in any distress her temperature heart rates respiration rate and blood pressure are in normal range white blood count is 3.8 potassium 4.8 On 01/02/2020 patient was seen and examined on the medical floor she is alert and responsive in no apparent distress. This morning patient had an episode of shortness of breath with decreased O2 sat duration A team was called patient received IV Lasix Sands catheter was inserted chest x-ray was done. Currently patient is doing better pulse ox is 92% on 4 L nasal cannula. On 01/03/2020 patient was seen and examined on the medical floor she is alert responsive in no apparent distress, her pulse ox is 92% on 6 L nasal cannula she is afebrile blood pressure is 123/87 chest x-ray done yesterday reveals left lower lobe infiltrate and right perihilar infiltrates. Without significant improvement from prior x-rays. On 01/04/2020 patient was seen and examined on the medical floor she is more alert and responsive today he denies any pain or discomfort, her pulse ox was lower today and she was switched to a nonrebreather mask On 01/05/2020 patient was seen and examined on the medical floor, she is alert and responsive at this time, she is tolerating tube feeding well, she denied any pain or discomfort. On 01/06/2020 patient was seen and examined on the medical floor, she is alert responsive in no apparent distress she is answering a few questions with yes or no or nodding her head she is tolerating tube feeding well she is denying any pain or discomfort at this time, her temperature is 98.1 blood pressure 135/75 pulse ox 90% on nonrebreather mask Objective - Vital Signs Vital signs: Vital Signs Temp 98.1 F 01/06/20 08:05 Pulse 70 01/06/20 12:40 Resp 18 01/06/20 12:40 BP 109/66 01/06/20 12:39 Pulse Ox 96 01/06/20 12:39 Intake & Output 01/05/20 01/06/20 01/06/20 18:59 06:59 18:59 Intake Total 600 1256 Output Total 950 1150 600 Balance -350 106 -600 Weight 81.5 kg 81.5 kg Intake: IV 600 Sodium Chloride 0.45% 1, 600 000 ml @ 75 mls/hr IV . [id number] [facility] Rx#:[id number] Tube Feeding 600 656 Output: Urine 950 1150 600 Other: Voiding Method Indwelling Catheter Indwelling Catheter Indwelling Catheter # Voids 1 # Bowel Movements 1 - Exam In general patient is somnolent nonverbal in no apparent distress HEENT head normocephalic and atraumatic Neck is supple no JVD no goiter no lymphadenopathy Chest exam reveals a few scattered crackles no wheezing Cardiac exam reveals regular heart sounds no gallops no murmurs Abdomen is soft nontender no organomegaly with normal bowel sounds Extremity exam reveals no edema no cyanosis or clubbing - Labs CBC & Chem 7: 01/06/20 06:27 01/06/20 06:27 Labs: Abnormal Lab Results - Last 24 Hours (Table) 01/05/20 01/05/20 01/06/20 Range/Units 16:38 20:44 05:51 Hct (34.0-46.0) % Sodium (137-145) mmol/L Chloride (98-107) mmol/L Carbon Dioxide (22-30) mmol/L BUN (7-17) mg/dL Glucose (74-99) mg/dL POC Glucose (mg/dL) 128 H 122 H 147 H (75-99) mg/dL Total Protein (6.3-8.2) g/dL Albumin (3.5-5.0) g/dL 01/06/20 01/06/20 01/06/20 Range/Units 06:27 06:27 11:22 Hct 47.8 H (34.0-46.0) % Sodium 147 H (137-145) mmol/L Chloride 110 H (98-107) mmol/L Carbon Dioxide 33 H (22-30) mmol/L BUN 22 H (7-17) mg/dL Glucose 151 H (74-99) mg/dL POC Glucose (mg/dL) 128 H (75-99) mg/dL Total Protein 5.6 L (6.3-8.2) g/dL Albumin 2.5 L (3.5-5.0) g/dL Assessment and Plan Plan: #1 pneumonia likely related to COVID 19 viral pneumonitis, followed by pulmonary and infectious disease #2 severe hypernatremia with sodium of 151 now corrected down to 141 #3 mental status changes likely related to hypernatremia and metabolic encephalopathy related to infection #4 acute hypoxic respiratory failure related to pneumonia, requiring oxygen at 4 L nasal cannula at this time #5 underlying history of hypertension #6 underlying history of COPD #7 underlying history of insulin-dependent diabetes mellitus millimeters #8 underlying history of stroke with right sided paralysis #9 chronic dysphagia and aspiration requiring PEG tube feeding #10 underlying history of atrial fibrillation maintained on Xarelto #11 vaginal bleeding, at this time will monitor closely, will check daily CBC, and monitor for amount of bleeding. Once her current illness has subsided, will investigate further with pelvic ultrasound and PILOT PLANT OPERATOR consult. #12 hyperkalemia, potassium on 12/31/2019 is elevated at 5.8 patient will receive 1 dose of Kayexalate 15 g by mouth today At this time patient is admitted to telemetry floor, [facility] medication were reordered Patient was started on IV Zithromax and oxygen supplements Consultation for pulmonary and infectious disease requested in the emergency room and are following patient's Will follow closely Prognosis is guarded due to multiple underlying comorbid conditions
[2020-01-06 16:44] LABS: Glucose,Whole Blood 51 mg/dL (75-99)
[2020-01-06 16:44] LABS: Glucose,Whole Blood 49 mg/dL (75-99)
[2020-01-06] MEDS ORDERED: DEXTROSE 50% SYRINGE 50 ML IVP ONE (16:49)
[2020-01-06 17:03] LABS: Glucose,Whole Blood 192 mg/dL (75-99)
[2020-01-06 20:37] LABS: Glucose,Whole Blood 130 mg/dL (75-99)
[2020-01-06] MEDS: INSULIN DETEMIR (LEVEMIR) 100 UNIT/ML SYR SQ SCH (21:32)
[2020-01-06] MEDS: RIVAROXABAN 10 MG TAB PO SCH (21:34)
[2020-01-06] MEDS: FERROUS SULFATE ORAL ELIXIR 300 MG/5 ML CUP PEG/G-TUBE SCH (21:34)
[2020-01-06] MEDS: PRAVASTATIN SODIUM 20 MG TAB PEG/G-TUBE SCH (21:34)
[2020-01-06] MEDS: cloNIDine HCL 0.1 MG TAB PEG/G-TUBE SCH (21:34)
--- NOTE | 2020-01-07 00:19 | PN ---
PROGRESS NOTE DATE OF SERVICE: 01/06/2020 REASON FOR FOLLOW UP: Acute Covid-19 pneumonia. INTERVAL HISTORY: The patient is currently afebrile. The patient is hemodynamically stable, still requiring non-rebreather oxygen. No nausea or vomiting has been reported or any diarrhea. PHYSICAL EXAMINATION: Blood pressure 152/73 with a pulse of 90, temperature 97.6. She is 91% on 15 L high- flow oxygen. General description is an elderly female lying in bed in no distress. Respiratory system: Unlabored breathing, decreased breath sounds in the base, with no wheeze. HEART: S1, S2. Regular rate and rhythm. Abdomen soft, no tenderness. LABS: Hemoglobin is 15.8, white count 5.2. BUN of 22, creatinine 0.76. Liver enzymes have normalized. Lymphopenia resolved. DIAGNOSTIC IMPRESSION AND PLAN: 1. Patient with acute Covid-19 pneumonia in this patient who has completed her antibiotic therapy. Currently on zinc and supportive treatment to continue and monitor clinical course closely. 2. Patient urine culture with Deloris glabrata. Repeat UA was ordered, not done. We will order again and repeat chest x-ray tomorrow as well. MMODL / IJN: [id number] /
[2020-01-07 01:10] LABS: Appearance,Urine Clear (Clear); Bilirubin,Urine Negative (Negative); Blood,Urine Negative (Negative); Color,Urine Yellow; Glucose,Urine (UA) Negative (Negative); Ketones,Urine Negative (Negative); Leukocyte Esterase,Urine Negative (Negative); Nitrite,Urine Negative (Negative); PH, Urine 6.5 (5.0-8.0); Protein,Urine Trace (Negative); Specific Gravity,Urine 1.018 (1.001-1.035)
[2020-01-07 05:29] LABS: ABG Base Excess 6.6 mmol/L; ABG HCO3 31 mmol/L (21-25); ABG Oxygen Saturation 79.7 % (94-97); ABG PCO2 49 mmHg (35-45); ABG PH 7.41 (7.35-7.45); ABG TCO2 33 mmol/L (19-24); Allen Test Performed? Yes
[2020-01-07 05:31] LABS: ABG PO2 46 mmHg (83-108)
[2020-01-07] MEDS: NOREPINEPHRINE 4 MG in SODIUM CHLORIDE 0.9% 250 ML IV SCH ×2 (06:23→19:50)
[2020-01-07] MEDS: PROPOFOL 1,000 MG in EMPTY BAG 1 BAG IV SCH ×3 (06:25→22:51)
[2020-01-07 06:35] LABS: Basophils # (A) 0.1 k/uL (0-0.2); Basophils % (A) 1 %; Eosinophils # (A) 0.1 k/uL (0-0.7); Eosinophils % (A) 2 %; HCT 47.5 % (34.0-46.0); HGB 14.8 gm/dL (11.4-16.0); Lymphocytes % (A) 14 %; MCH 30.2 pg (25.0-35.0); MCHC 31.1 g/dL (31.0-37.0); Mean Platelet Volume 10.5; Monocytes # (A) 0.3 k/uL (0-1.0); Monocytes % (A) 5 %; Neutrophils # (A) 5.1 k/uL (1.3-7.7); Neutrophils % (A) 76 %; Platelet Count 183 k/uL (150-450); RDW 13.7 % (11.5-15.5); WBC 6.8 k/uL (3.8-10.6)
--- NOTE | 2020-01-07 06:51 | XR ---
EXAM: XR Chest, 1 View CLINICAL HISTORY: ITS.REASON XR Reason: pneumonia TECHNIQUE: Frontal view of the chest. COMPARISON: 01/02/2020 IMPRESSION: ET tube terminates 5 cm from the khadar. Unchanged heart size. Left pleural effusion with compressive atelectasis. Mild vascular congestion.
[2020-01-07] MEDS: SODIUM CHLORIDE 0.45% 1,000 ML IV SCH ×2 (07:30→19:51)
[2020-01-07 07:33] LABS: African American GFR (CKD) >90 (>60 ml/min/1.73 sqM); Anion Gap 3 mmol/L; Blood Urea Nitrogen 23 mg/dL (7-17); Carbon Dioxide 31 mmol/L (22-30); Chloride 111 mmol/L (98-107); Glucose 320 mg/dL (74-99); LDH 975 U/L (313-618); Non-African American GFR(CKD) 84 (>60 ml/min/1.73 sqM); Potassium 4.2 mmol/L (3.5-5.1); Sodium 145 mmol/L (137-145)
[2020-01-07 08:15] LABS: Glucose,Whole Blood 299 mg/dL (75-99)
[2020-01-07] MEDS: amLODIPine 10 MG TAB PEG/G-TUBE SCH (08:47)
[2020-01-07] MEDS: LISINOPRIL 10 MG TAB PEG/G-TUBE SCH (08:48)
[2020-01-07] MEDS: PANTOPRAZOLE 40 MG/10 ML VIAL IV SCH (09:09)
[2020-01-07] MEDS: FUROSEMIDE 10 MG/ML 2 ML VIAL IV SCH (09:10)
[2020-01-07] MEDS: CHLORHEXIDINE GLUCONATE 15 ML CUP MUCOUS MEM SCH ×2 (09:10→21:03)
[2020-01-07] MEDS: INSULIN ASPART (NovoLOG) 100 UNIT/ML VIAL SQ SCH ×4 (09:10→21:03)
[2020-01-07] MEDS: CHOLECALCIFEROL 1,000 UNIT TAB PEG/G-TUBE SCH (09:10)
[2020-01-07 09:38] LABS: ABG Base Excess 4.9 mmol/L; ABG HCO3 30 mmol/L (21-25); ABG Oxygen Saturation 97.7 % (94-97); ABG PCO2 51 mmHg (35-45); ABG PH 7.38 (7.35-7.45); ABG PO2 109 mmHg (83-108); ABG TCO2 32 mmol/L (19-24); Allen Test Performed? Yes
[2020-01-07] MEDS: FERROUS SULFATE ORAL ELIXIR 300 MG/5 ML CUP PEG/G-TUBE SCH (09:39)
[2020-01-07] MEDS: ALBUTEROL HFA INHALER INHALATION SCH ×4 (09:40→19:52)
--- NOTE | 2020-01-07 11:14 | P.PN ---
Subjective Progress Note Date: 01/07/20 Soledad Enriquez, is an 79-year-old female who resides at a correction at this time will was noticed to have worsening mental status and persistent cough, patient started having elevated temperature up to 101 at that point she was sent to [facility] emergency room she had testing for influenza A and B which were negative she also had an instant test for Covid 19 which was positive she was admitted to telemetry floor she was started on IV Zithromax pulmonary and infectious disease consultation were requested. Patient also had evidence of dehydration with hypernatremia elevated sodium level at 151. Patient has a known history of multiple medical problems including history of stroke with right sided paralysis, history of aspiration patient has a PEG tube for feeding, history of insulin-dependent diabetes mellitus, history of hypertension, history of hyperlipidemia, and history of paroxysmal atrial fibrillation. On presentation patient had a temperature of 101 pulse of 82 respiration 18 blood pressure 119/63 and pulse ox of 91% on 4 L nasal cannula. White blood count was 4.8 chest x-ray revealed evidence of left basilar opacity. On 12/30/2019 patient was seen and examined on the medical floor she is somnolent responsive in no apparent distress there is low-grade fever temperature is 100.8 there is no chills no headache or dizziness no chest pain no shortness of breath no cough no nausea or vomiting no abdominal pain no diarrhea and no burning was urination. Nurse noticed some vaginal bleeding, hemoglobin is stable at 15. Pulse ox is 96% on 4 L nasal cannula , On 12/31/2019 patient was seen and examined on the medical floor she is somnolent responsive in no apparent distress, her fever is subsiding temperatures this morning 99 pulse ox is 92% on 4 L nasal cannula, patient is denying any complaints at this time however, she does not seem to be listening much to the questions, and she goes back to sleep fast. White blood count today is normal at 4.1 hemoglobin is 15.2 potassium is elevated at 5.8 On 01/01/2020 patient was seen and examined on the medical floor she is more alert and responsive today there is no fever or chills no headache or dizziness no chest pain no shortness of breath no cough no nausea or vomiting no abdominal pain no diarrhea and no urinary symptoms, she is receiving feeding through PEG tube at night, glucose level is elevated again, will increase Lantus dose to 25 units at bedtime, and continue was inserted into sliding scale. Patient is receiving oxygen via nasal cannula at 4 L her pulse ox is 92% patient does not s eem to be in any distress her temperature heart rates respiration rate and blood pressure are in normal range white blood count is 3.8 potassium 4.8 On 01/02/2020 patient was seen and examined on the medical floor she is alert and responsive in no apparent distress. This morning patient had an episode of shortness of breath with decreased O2 sat duration A team was called patient received IV Lasix Sands catheter was inserted chest x-ray was done. Currently patient is doing better pulse ox is 92% on 4 L nasal cannula. On 01/03/2020 patient was seen and examined on the medical floor she is alert responsive in no apparent distress, her pulse ox is 92% on 6 L nasal cannula she is afebrile blood pressure is 123/87 chest x-ray done yesterday reveals left lower lobe infiltrate and right perihilar infiltrates. Without significant improvement from prior x-rays. On 01/04/2020 patient was seen and examined on the medical floor she is more alert and responsive today he denies any pain or discomfort, her pulse ox was lower today and she was switched to a nonrebreather mask On 01/05/2020 patient was seen and examined on the medical floor, she is alert and responsive at this time, she is tolerating tube feeding well, she denied any pain or discomfort. On 01/06/2020 patient was seen and examined on the medical floor, she is alert responsive in no apparent distress she is answering a few questions with yes or no or nodding her head she is tolerating tube feeding well she is denying any pain or discomfort at this time, her temperature is 98.1 blood pressure 135/75 pulse ox 90% on nonrebreather mask. On 01/07/2020 Patient was seen and examined in the ICU. Around 7:00 am this morning patient was on the floor she was having worsening shortness of breath and using accessory muscles she was on nonrebreather mask and her O2 sat duration was 88% Dr. Caba rn urology was contacted patient was transferred to ICU she was intubated sedated and started on mechanical ventilation, she was also started on levophed for blood pressure support. Objective - Vital Signs Vital signs: Vital Signs Temp 97.6 F 01/06/20 20:00 Pulse 98 01/07/20 09:30 Resp 20 01/07/20 09:30 BP 109/76 01/07/20 09:30 Pulse Ox 97 01/07/20 09:30 Intake & Output 01/06/20 01/07/20 01/07/20 18:59 06:59 18:59 Intake Total 50 751.044 289.543 Output Total 600 1600 80 Balance -550 -848.956 209.543 Weight 81.5 kg 83.5 kg Intake: IV 600 150 Sodium Chloride 0.45% 1, 600 150 000 ml @ 75 mls/hr IV . [id number] CAITLYN Rx#:[id number] Intake, IV Titration 1.044 89.543 Amount Norepinephrine 4 mg In 70.839 Sodium Chloride 0.9% 250 ml @ 0.05 MCG/KG/MIN 15. 907 mls/hr IV .[id number] CAITLYN Rx#:[id number] Propofol 1,000 mg In 1.044 18.704 Empty Bag 1 bag @ Titrate IV .Q0M CAITLYN Rx#: [id number] Tube Feeding 50 150 50 Output: Urine 600 1600 80 Other: Voiding Method Indwelling Catheter Indwelling Catheter Indwelling Catheter # Voids 1 - Exam In general patient is intubated sedated maintained on mechanical ventilation HEENT head normocephalic and atraumatic Neck is supple no JVD no goiter no lymphadenopathy Chest exam reveals a few scattered crackles no wheezing Cardiac exam reveals regular heart sounds no gallops no murmurs Abdomen is soft nontender no organomegaly with normal bowel sounds Extremity exam reveals no edema no cyanosis or clubbing - Labs CBC & Chem 7: 01/07/20 06:19 01/07/20 06:19 Labs: Abnormal Lab Results - Last 24 Hours (Table) 01/06/20 01/06/20 01/06/20 Range/Units 11:22 16:41 16:43 Hct (34.0-46.0) % ABG pCO2 (35-45) mmHg ABG pO2 (83-108) mmHg ABG HCO3 (21-25) mmol/L ABG Total CO2 (19-24) mmol/L ABG O2 Saturation (94-97) % Chloride (98-107) mmol/L Carbon Dioxide (22-30) mmol/L BUN (7-17) mg/dL Glucose (74-99) mg/dL POC Glucose (mg/dL) 128 H 49 L 51 L (75-99) mg/dL Lactate Dehydrogenase (313-618) U/L C-Reactive Protein (<10.0) mg/L Urine Protein (Negative) 01/06/20 01/06/20 01/07/20 Range/Units 17:02 20:36 00:45 Hct (34.0-46.0) % ABG pCO2 (35-45) mmHg ABG pO2 (83-108) mmHg ABG HCO3 (21-25) mmol/L ABG Total CO2 (19-24) mmol/L ABG O2 Saturation (94-97) % Chloride (98-107) mmol/L Carbon Dioxide (22-30) mmol/L BUN (7-17) mg/dL Glucose (74-99) mg/dL POC Glucose (mg/dL) 192 H 130 H (75-99) mg/dL Lactate Dehydrogenase (313-618) U/L C-Reactive Protein (<10.0) mg/L Urine Protein Trace H (Negative) 01/07/20 01/07/20 01/07/20 Range/Units 05:26 06:19 06:19 Hct 47.5 H (34.0-46.0) % ABG pCO2 49 H (35-45) mmHg ABG pO2 46 L* (83-108) mmHg ABG HCO3 31 H (21-25) mmol/L ABG Total CO2 33 H (19-24) mmol/L ABG O2 Saturation 79.7 L (94-97) % Chloride 111 H (98-107) mmol/L Carbon Dioxide 31 H (22-30) mmol/L BUN 23 H (7-17) mg/dL Glucose 320 H (74-99) mg/dL POC Glucose (mg/dL) (75-99) mg/dL Lactate Dehydrogenase 975 H (313-618) U/L C-Reactive Protein 34.0 H (<10.0) mg/L Urine Protein (Negative) 01/07/20 01/07/20 Range/Units 08:13 09:32 Hct (34.0-46.0) % ABG pCO2 51 H (35-45) mmHg ABG pO2 109 H (83-108) mmHg ABG HCO3 30 H (21-25) mmol/L ABG Total CO2 32 H (19-24) mmol/L ABG O2 Saturation 97.7 H (94-97) % Chloride (98-107) mmol/L Carbon Dioxide (22-30) mmol/L BUN (7-17) mg/dL Glucose (74-99) mg/dL POC Glucose (mg/dL) 299 H (75-99) mg/dL Lactate Dehydrogenase (313-618) U/L C-Reactive Protein (<10.0) mg/L Urine Protein (Negative) Microbiology - Last 24 Hours (Table) 01/07/20 06:20 Sputum Culture - Preliminary Sputum Assessment and Plan Plan: #1 pneumonia likely related to COVID 19 viral pneumonitis, followed by pulmonary and infectious disease, condition has worsened over night patient is currently in ICU maintained on mechanical ventilation #2 severe hypernatremia, on admission corrected #3 mental status changes likely related to hypernatremia and metabolic encephalopathy related to infection #4 acute hypoxic respiratory failure related to pneumonia, requiring oxygen at 4 L nasal cannula at this time #5 underlying history of hypertension #6 underlying history of COPD #7 underlying history of insulin-dependent diabetes mellitus millimeters #8 underlying history of stroke with right sided paralysis #9 chronic dysphagia and aspiration requiring PEG tube feeding #10 underlying history of atrial fibrillation maintained on Xarelto #11 vaginal bleeding, at this time will monitor closely, will check daily CBC, and monitor for amount of bleeding. Once her current illness has subsided, will investigate further with pelvic ultrasound and RADIOLOGY CLERK consult. #12 hyperkalemia, corrected At this time patient is into in the intensive care unit her condition has worsened overnight She is intubated sedated maintained on mechanical ventilation Consultation for pulmonary and infectious disease requested in the emergency room and are following patient's Will follow closely Prognosis is guarded due to multiple underlying comorbid conditions
[2020-01-07] MEDS: METOPROLOL TARTRATE 50 MG TAB PEG/G-TUBE SCH ×2 (11:17→21:04)
[2020-01-07] MEDS ORDERED: SODIUM CHLORIDE 0.9% 500 ML 500 ML IV ONE (11:30)
[2020-01-07 13:28] LABS: Glucose,Whole Blood 208 mg/dL (75-99)
[2020-01-07] MEDS: ZINC SULFATE 220 MG CAP PO SCH (13:41)
--- NOTE | 2020-01-07 14:23 | P.PN ---
Subjective Progress Note Date: 01/06/20 (Late entry note) Principal diagnosis: Acute hypoxic respiratory failure COVID 19 pneumonia Aspiration pneumonia likely mixed bacterial and/or or gram-negative related Chronic right-sided weakness dysphagia and aphasia status post PEG tube COPD Insulin-dependent diabetes mellitus uncontrolled Hypertension hypertensive cardiovascular disease Chronic atrial fibrillation on anticoagulation with XERALTO 01/06/2020, patient seen and evaluated examined remains on nonrebreather mask still have problems associated with shortness of breath, care plan discussed with RN will continue current plan of care patient can be started on as needed breathing treatments will continue to gently diurese 01/05/2020, patient seen and evaluated examined remains on nonrebreather mask, nonverbal and noncommunicative essentially no significant change in neurological condition, she remained afebrile with stable hemodynamics her oxygen saturations improved to 96% on repeat nonrebreather mask 01/04/2020, patient laying on the bed on 100% nonrebreather mask and breathing is slightly short of breath, patient is on bronchodilator along with antibiotics, has been on Lasix as well, patient remains on Zosyn, labs reviewed white cell count is normal, labs reviewed, glucose is 342, BUN/creatinine is 25 and 0.7, stool for C. difficile is negative 01/02/2020, patient seen eval examined during the rounds patient has a rapid response this morning with the shortness of breath she however responded well with Lasix, Sands's catheter has been placed, shortness of breath have improved though, on 4 L saturation is 92% low-grade temperature of 99 is present, her chest x-ray assistive of the left lower lobe pneumonia and right perihilar infiltrate prominent lung markings likely fluid overload, Objective - Vital Signs Vital signs: Vital Signs Intake & Output - Exam - Neck Neck: no lymphadenopathy, no stridor - Respiratory Scattered rhonchi throughout, diminished to her left lower lobe. Respirations are symmetrical and nonlabored. - Cardiovascular Regular rhythm and rate. S1 and S2 present, negative for S3, gallop or murmur. Trace edema to her bilateral lower extremities. - Gastrointestinal Abdomen soft and nondistended. Active bowel sounds present in all 4 abdominal quadrants. PEG tube is in place. General gastrointestinal: no organomegaly, no rigid - Integumentary Skin is warm and dry. No clubbing or cyanosis is present. Integumentary: no rash - Neurologic Open eyes with verbal stimuli. - Labs CBC & Chem 7: 01/07/20 06:19 01/07/20 06:19 Labs: Abnormal Lab Results - Last 24 Hours (Table) 01/06/20 01/06/20 01/06/20 Range/Units 16:41 16:43 17:02 Hct (34.0-46.0) % ABG pCO2 (35-45) mmHg ABG pO2 (83-108) mmHg ABG HCO3 (21-25) mmol/L ABG Total CO2 (19-24) mmol/L ABG O2 Saturation (94-97) % Chloride (98-107) mmol/L Carbon Dioxide (22-30) mmol/L BUN (7-17) mg/dL Glucose (74-99) mg/dL POC Glucose (mg/dL) 49 L 51 L 192 H (75-99) mg/dL Lactate Dehydrogenase (313-618) U/L C-Reactive Protein (<10.0) mg/L Urine Protein (Negative) 01/06/20 01/07/20 01/07/20 Range/Units 20:36 00:45 05:26 Hct (34.0-46.0) % ABG pCO2 49 H (35-45) mmHg ABG pO2 46 L* (83-108) mmHg ABG HCO3 31 H (21-25) mmol/L ABG Total CO2 33 H (19-24) mmol/L ABG O2 Saturation 79.7 L (94-97) % Chloride (98-107) mmol/L Carbon Dioxide (22-30) mmol/L BUN (7-17) mg/dL Glucose (74-99) mg/dL POC Glucose (mg/dL) 130 H (75-99) mg/dL Lactate Dehydrogenase (313-618) U/L C-Reactive Protein (<10.0) mg/L Urine Protein Trace H (Negative) 01/07/20 01/07/20 01/07/20 Range/Units 06:19 06:19 08:13 Hct 47.5 H (34.0-46.0) % ABG pCO2 (35-45) mmHg ABG pO2 (83-108) mmHg ABG HCO3 (21-25) mmol/L ABG Total CO2 (19-24) mmol/L ABG O2 Saturation (94-97) % Chloride 111 H (98-107) mmol/L Carbon Dioxide 31 H (22-30) mmol/L BUN 23 H (7-17) mg/dL Glucose 320 H (74-99) mg/dL POC Glucose (mg/dL) 299 H (75-99) mg/dL Lactate Dehydrogenase 975 H (313-618) U/L C-Reactive Protein 34.0 H (<10.0) mg/L Urine Protein (Negative) 01/07/20 01/07/20 Range/Units 09:32 13:27 Hct (34.0-46.0) % ABG pCO2 51 H (35-45) mmHg ABG pO2 109 H (83-108) mmHg ABG HCO3 30 H (21-25) mmol/L ABG Total CO2 32 H (19-24) mmol/L ABG O2 Saturation 97.7 H (94-97) % Chloride (98-107) mmol/L Carbon Dioxide (22-30) mmol/L BUN (7-17) mg/dL Glucose (74-99) mg/dL POC Glucose (mg/dL) 208 H (75-99) mg/dL Lactate Dehydrogenase (313-618) U/L C-Reactive Protein (<10.0) mg/L Urine Protein (Negative) Microbiology - Last 24 Hours (Table) 01/07/20 06:20 Sputum Culture - Preliminary Sputum Assessment and Plan Assessment: Acute hypoxic respiratory failure COVID 19 pneumonia Fluid overload responded with Lasix, will continue 20 milligrams daily Hypernatremia now improved Aspiration pneumonia likely mixed bacterial and/or or gram-negative related Chronic right-sided weakness dysphagia and aphasia status post PEG tube COPD Insulin-dependent diabetes mellitus uncontrolled Hypertension hypertensive cardiovascular disease Chronic atrial fibrillation on anticoagulation with XERALTO Plan: Continue gentle diuresis Monitor sodium levels closely Continue respiratory and contact isolation Agree with continuation of Zithromax and Zosyn for likely bacterial pneumonia as piration related Continue nonrebreather 100% oxygen for another 24 hours if oxygen remains stable we'll start titrating it down Time with Patient: Greater than 30
--- NOTE | 2020-01-07 14:30 | P.PN ---
Subjective Progress Note Date: 01/07/20 (Critical care time 45 minutes) Principal diagnosis: Acute hypoxic respiratory failure on ventilator COVID 19 pneumonia Aspiration pneumonia likely mixed bacterial and/or or gram-negative related Chronic right-sided weakness dysphagia and aphasia status post PEG tube COPD Insulin-dependent diabetes mellitus uncontrolled Hypertension hypertensive cardiovascular disease Chronic atrial fibrillation on anticoagulation off of his Xeralto, has been initiated on Lovenox twice a day 01/07/2020, patient does live increase respiratory distress earlier this morning oxygen remains very poor saturation dropped down into 70s to 80s percent, pO2 was only 46 patient was intubated and placed in ICU where patient was seen eval reexamined, patient remains on levo fed drip on 5 mics, her hemodynamic is slightly better systolic blood pressure ranging from 100 210, patient is on pro pofol 20, vent setting include assist control of 20 tidal volume of 400, PEEP of 10, FiO2 have been lowered down to 90%, ABG and laboratory data data reviewed chest x-ray reviewed mild bilateral interstitial infiltrate consistent with viral pneumonia, patient is being started on Lovenox twice a day continued on tube feed will increase gentle hydration, blood glucose is running slightly high will increase the Levemir, critical care time spent 45 minutes 01/06/2020, patient seen and evaluated examined remains on nonrebreather mask still have problems associated with shortness of breath, care plan discussed with RN will continue current plan of care patient can be started on as needed breathing treatments will continue to gently diurese 01/05/2020, patient seen and evaluated examined remains on nonrebreather mask, nonverbal and noncommunicative essentially no significant change in neurological condition, she remained afebrile with stable hemodynamics her oxygen saturations improved to 96% on repeat nonrebreather mask 01/04/2020, patient laying on the bed on 100% nonrebreather mask and breathing is slightly short of breath, patient is on bronchodilator along with antibiotics, has been on Lasix as well, patient remains on Zosyn, labs reviewed white cell count is normal, labs reviewed, glucose is 342, BUN/creatinine is 25 and 0.7, stool for C. difficile is negative 01/02/2020, patient seen eval examined during the rounds patient has a rapid response this morning with the shortness of breath she however responded well with Lasix, Sands's catheter has been placed, shortness of breath have improved though, on 4 L saturation is 92% low-grade temperature of 99 is present, her ch est x-ray assistive of the left lower lobe pneumonia and right perihilar infiltrate prominent lung markings likely fluid overload, Objective - Vital Signs Vital signs: Vital Signs Temp 98.9 F 01/07/20 12:00 Pulse 81 01/07/20 13:00 Resp 20 01/07/20 13:00 BP 92/62 01/07/20 13:00 Pulse Ox 98 01/07/20 13:00 Intake & Output 01/06/20 01/07/20 01/07/20 18:59 06:59 18:59 Intake Total 50 751.044 819.947 Output Total 600 1600 220 Balance -550 -848.956 599.947 Weight 81.5 kg 83.5 kg Intake: IV 600 525 Sodium Chloride 0.45% 1, 600 525 000 ml @ 75 mls/hr IV . [id number] [facility] Rx#:[id number] Intake, IV Titration 1.044 124.947 Amount Norepinephrine 4 mg In 70.839 Sodium Chloride 0.9% 250 ml @ 0.05 MCG/KG/MIN 15. 907 mls/hr IV .[id number] [facility] Rx#:[id number] Propofol 1,000 mg In 1.044 54.108 Empty Bag 1 bag @ Titrate IV .Q0M [facility]N Rx#: [id number] Tube Feeding 50 150 170 Output: Urine 600 1600 220 Other: Voiding Method Indwelling Catheter Indwelling Catheter Indwelling Catheter # Voids 1 - Exam - Neck Neck: no lymphadenopathy, no stridor - Respiratory Scattered rhonchi throughout, diminished to her left lower lobe. Respirations are symmetrical and nonlabored. - Cardiovascular Regular rhythm and rate. S1 and S2 present, negative for S3, gallop or murmur. Trace edema to her bilateral lower extremities. - Gastrointestinal Abdomen soft and nondistended. Active bowel sounds present in all 4 abdominal quadrants. PEG tube is in place. General gastrointestinal: no organomegaly, no rigid - Integumentary Skin is warm and dry. No clubbing or cyanosis is present. Integumentary: no rash - Neurologic Open eyes with verbal stimuli. - Labs CBC & Chem 7: 01/07/20 06:19 01/07/20 06:19 Labs: Abnormal Lab Results - Last 24 Hours (Table) 01/06/20 01/06/20 01/06/20 Range/Units 16:41 16:43 17:02 Hct (34.0-46.0) % ABG pCO2 (35-45) mmHg ABG pO2 (83-108) mmHg ABG HCO3 (21-25) mmol/L ABG Total CO2 (19-24) mmol/L ABG O2 Saturation (94-97) % Chloride (98-107) mmol/L Carbon Dioxide (22-30) mmol/L BUN (7-17) mg/dL Glucose (74-99) mg/dL POC Glucose (mg/dL) 49 L 51 L 192 H (75-99) mg/dL Lactate Dehydrogenase (313-618) U/L C-Reactive Protein (<10.0) mg/L Urine Protein (Negative) 01/06/20 01/07/20 01/07/20 Range/Units 20:36 00:45 05:26 Hct (34.0-46.0) % ABG pCO2 49 H (35-45) mmHg ABG pO2 46 L* (83-108) mmHg ABG HCO3 31 H (21-25) mmol/L ABG Total CO2 33 H (19-24) mmol/L ABG O2 Saturation 79.7 L (94-97) % Chloride (98-107) mmol/L Carbon Dioxide (22-30) mmol/L BUN (7-17) mg/dL Glucose (74-99) mg/dL POC Glucose (mg/dL) 130 H (75-99) mg/dL Lactate Dehydrogenase (313-618) U/L C-Reactive Protein (<10.0) mg/L Urine Protein Trace H (Negative) 01/07/20 01/07/20 01/07/20 Range/Units 06:19 06:19 08:13 Hct 47.5 H (34.0-46.0) % ABG pCO2 (35-45) mmHg ABG pO2 (83-108) mmHg ABG HCO3 (21-25) mmol/L ABG Total CO2 (19-24) mmol/L ABG O2 Saturation (94-97) % Chloride 111 H (98-107) mmol/L Carbon Dioxide 31 H (22-30) mmol/L BUN 23 H (7-17) mg/dL Glucose 320 H (74-99) mg/dL POC Glucose (mg/dL) 299 H (75-99) mg/dL Lactate Dehydrogenase 975 H (313-618) U/L C-Reactive Protein 34.0 H (<10.0) mg/L Urine Protein (Negative) 01/07/20 01/07/20 Range/Units 09:32 13:27 Hct (34.0-46.0) % ABG pCO2 51 H (35-45) mmHg ABG pO2 109 H (83-108) mmHg ABG HCO3 30 H (21-25) mmol/L ABG Total CO2 32 H (19-24) mmol/L ABG O2 Saturation 97.7 H (94-97) % Chloride (98-107) mmol/L Carbon Dioxide (22-30) mmol/L BUN (7-17) mg/dL Glucose (74-99) mg/dL POC Glucose (mg/dL) 208 H (75-99) mg/dL Lactate Dehydrogenase (313-618) U/L C-Reactive Protein (<10.0) mg/L Urine Protein (Negative) Microbiology - Last 24 Hours (Table) 01/07/20 06:20 Sputum Culture - Preliminary Sputum Assessment and Plan Assessment: Acute hypoxic respiratory failure on ventilator COVID 19 pneumonia with acute worsening and inflammatory response/cytokine storm Ventilator adjustment titrated oxygen down as tolerated if peak airway pressure goes up 35 will initiate pressure control ventilation Continue gently rehydrate and monitor urine output Hypernatremia now improved on half normal saline Aspiration pneumonia likely mixed bacterial and/or or gram-negative related Chronic right-sided weakness dysphagia and aphasia status post PEG tube COPD Insulin-dependent diabetes mellitus uncontrolled Hypertension hypertensive cardiovascular disease Chronic atrial fibrillation on anticoagulation with XERALTO Plan: Titrated oxygen down to 70% over next 24-48 hours Anticoagulation. Lovenox twice a day We will increase the Levemir due to hyperglycemia Continue Levophed titrated down to DC as per fluid resuscitation Continue gentle hydration Continue to feed Ventilator adjustment Order inflammation tree labs for covid19 Monitor sodium levels closely Continue respiratory and contact isolation Time with Patient: Greater than 30
[2020-01-07 18:07] LABS: Glucose,Whole Blood 122 mg/dL (75-99)
[2020-01-07 20:54] LABS: Glucose,Whole Blood 161 mg/dL (75-99)
[2020-01-07] MEDS ORDERED: ENOXAPARIN 40 MG/0.4 ML SYRINGE SQ SCH (21:00)
[2020-01-07] MEDS: cloNIDine HCL 0.1 MG TAB PEG/G-TUBE SCH (21:02)
[2020-01-07] MEDS: ENOXAPARIN 40 MG/0.4 ML SYRINGE SQ SCH (21:03)
[2020-01-07] MEDS: INSULIN DETEMIR (LEVEMIR) 100 UNIT/ML SYR SQ SCH (21:04)
[2020-01-07] MEDS: PRAVASTATIN SODIUM 20 MG TAB PEG/G-TUBE SCH (21:38)
--- NOTE | 2020-01-07 22:22 | PN ---
PROGRESS NOTE DATE OF SERVICE: 01/07/2020 REASON FOR FOLLOWUP: 1. Acute Covid-19 pneumonia. 2. Possible aspiration pneumonia. INTERVAL HISTORY: The patient is in respiratory distress. The patient ended up getting intubated, currently in the ICU, on the vent. Apparently the patient did have significant amount of purulent secretions through the ET when she was intubated with concern for possible aspiration. No vomiting or diarrhea has been reported. PHYSICAL EXAMINATION: Blood pressure is 93/66, pulse of 87, temperature 98.3. She is 93% on 80% FiO2. General description is an elderly female intubated on the vent. Respiratory system: Unlabored breathing, decreased breath sounds at the base. No wheeze. HEART: S1, S2. Regular rate and rhythm. Abdomen soft, no distention. LABS: Hemoglobin is 14.1, white count 6.8. BUN of 23, creatinine 0.65. DIAGNOSTIC IMPRESSION AND PLAN: Patient with acute respiratory failure which is likely multifactorial in this patient who did have a component of aspiration pneumonia. Sputum culture has been obtained. We will add Zosyn and we will monitor clinical course closely. MMODL / IJN: [id number] /
[2020-01-08] MEDS: PIPERACILLIN-TAZOBACTAM 3.375 GM in SODIUM CHLORIDE 0.9% 100 ML IVPB SCH ×3 (00:23→16:10)
[2020-01-08] MEDS: PROPOFOL 1,000 MG in EMPTY BAG 1 BAG IV SCH ×4 (03:55→21:47)
[2020-01-08] MEDS: NOREPINEPHRINE 4 MG in SODIUM CHLORIDE 0.9% 250 ML IV SCH ×2 (03:56→09:41)
[2020-01-08 05:28] LABS: ABG Base Excess 4.4 mmol/L; ABG HCO3 29 mmol/L (21-25); ABG Oxygen Saturation 90.3 % (94-97); ABG PCO2 45 mmHg (35-45); ABG PH 7.42 (7.35-7.45); ABG TCO2 30 mmol/L (19-24); Allen Test Performed? Yes
[2020-01-08 05:29] LABS: ABG PO2 59 mmHg (83-108)
[2020-01-08 05:38] LABS: Basophils # (A) 0.1 k/uL (0-0.2); Basophils % (A) 1 %; Eosinophils # (A) 0.2 k/uL (0-0.7); Eosinophils % (A) 5 %; HCT 43.4 % (34.0-46.0); HGB 13.7 gm/dL (11.4-16.0); Lymphocytes % (A) 21 %; MCH 30.1 pg (25.0-35.0); MCHC 31.5 g/dL (31.0-37.0); MCV 95.5 fL (80.0-100.0); Monocytes # (A) 0.2 k/uL (0-1.0); Monocytes % (A) 4 %; Neutrophils # (A) 3.3 k/uL (1.3-7.7); Neutrophils % (A) 67 %; Platelet Count 140 k/uL (150-450); RBC 4.54 m/uL (3.80-5.40); RDW 13.7 % (11.5-15.5); WBC 4.9 k/uL (3.8-10.6)
[2020-01-08 05:44] LABS: African American GFR (CKD) >90 (>60 ml/min/1.73 sqM); Anion Gap 1 mmol/L; Blood Urea Nitrogen 21 mg/dL (7-17); C Reactive Protein 25.2 mg/L (<10.0); Calcium 8.5 mg/dL (8.4-10.2); Carbon Dioxide 31 mmol/L (22-30); Chloride 109 mmol/L (98-107); Glucose 187 mg/dL (74-99); LDH 817 U/L (313-618); Non-African American GFR(CKD) 85 (>60 ml/min/1.73 sqM); Potassium 3.5 mmol/L (3.5-5.1); Sodium 141 mmol/L (137-145)
[2020-01-08] MEDS ORDERED: Potassium Replacement Protocol 1 EACH MISC MISCELLANE PRN (06:10)
[2020-01-08 06:26] LABS: Glucose,Whole Blood 214 mg/dL (75-99)
[2020-01-08] MEDS: POTASSIUM BICARBONATE/CIT AC 20 MEQ TABLET.EFF NG-TUBE SCH ×2 (06:31→09:34)
[2020-01-08] MEDS: INSULIN ASPART (NovoLOG) 100 UNIT/ML VIAL SQ SCH ×4 (06:32→21:02)
--- NOTE | 2020-01-08 06:42 | XR ---
EXAMINATION TYPE: XR chest 1V portable DATE OF EXAM: 01/08/2020 HISTORY: Tube placement. REFERENCE: Previous study dated 01/07/2020. FINDINGS: The patient's ET tube remains in place, unchanged in appearance. There is bibasilar airspace disease. There are patchy bilateral infiltrates. The heart is upper limit s of normal in size. There is blunting of both CP angles and I cannot exclude small effusions. IMPRESSION: OVERALL IMPROVED AERATION COMPARED TO PREVIOUS.
[2020-01-08] MEDS: ALBUTEROL HFA INHALER INHALATION SCH ×4 (07:09→20:10)
[2020-01-08] MEDS: LISINOPRIL 10 MG TAB PEG/G-TUBE SCH (08:46)
[2020-01-08] MEDS: amLODIPine 10 MG TAB PEG/G-TUBE SCH (08:46)
[2020-01-08] MEDS: PANTOPRAZOLE 40 MG/10 ML VIAL IV SCH (09:34)
[2020-01-08] MEDS: CHLORHEXIDINE GLUCONATE 15 ML CUP MUCOUS MEM SCH ×2 (09:34→21:01)
[2020-01-08] MEDS: ENOXAPARIN 40 MG/0.4 ML SYRINGE SQ SCH ×2 (09:34→21:01)
[2020-01-08] MEDS: FUROSEMIDE 10 MG/ML 2 ML VIAL IV SCH ×2 (09:35→21:02)
[2020-01-08] MEDS: CHOLECALCIFEROL 1,000 UNIT TAB PEG/G-TUBE SCH (09:35)
[2020-01-08] MEDS: ZINC SULFATE 220 MG CAP PO SCH (09:36)
--- NOTE | 2020-01-08 12:26 | P.PN ---
Subjective Progress Note Date: 01/08/20 (Critical care time 35 minutes) Principal diagnosis: Acute hypoxic respiratory failure on ventilator COVID 19 pneumonia Aspiration pneumonia likely mixed bacterial and/or or gram-negative related Chronic right-sided weakness dysphagia and aphasia status post PEG tube COPD Insulin-dependent diabetes mellitus uncontrolled Hypertension hypertensive cardiovascular disease Chronic atrial fibrillation on anticoagulation off of his Xeralto, has been initiated on Lovenox twice a day 01/08/2020, patient seen and evaluated examined in ICU patient remains on current ventilator with full ventilatory response be clear pressure slightly better than yesterday ranging from 30-32, patient is down to 70% now PEEP of 10 assist control is 20 breathing about 25-26 tidal volume is 400 this morning ABG reviewed ventilation is adequate slight hypoxia was noted but however sats at that time when the gas were done were 91-92% since that time patient has received 20 of Lasix and put out about 550 mL of urine and saturation is improved to 96%, patient is afebrile, patient would need a PICC line tomorrow, remains on propofol dose has been escalated today, tolerating to feed well, sug ars are in low 200 range, LDH is 817 C-reactive protein is 25.2 on the they are showing downward trend her plan discussed with the staff at length will increase her Lasix to 20 mg daily will keep patient on 70% and PEEP of 10 and today attempt to titrate oxygen down again tomorrow chest x-ray showed some improved aviation compared to prior study stable ET tube, and seems to tolerating Lasix well any significant compromise in hemodynamic status critical care time spent 35 minutes 01/07/2020, patient does live increase respiratory distress earlier this morning oxygen remains very poor saturation dropped down into 70s to 80s percent, pO2 was only 46 patient was intubated and placed in ICU where patient was seen eval reexamined, patient remains on levo fed drip on 5 mics, her hemodynamic is s lightly better systolic blood pressure ranging from 100 210, patient is on propofol 20, vent setting include assist control of 20 tidal volume of 400, PEEP of 10, FiO2 have been lowered down to 90%, ABG and laboratory data data reviewed chest x-ray reviewed mild bilateral interstitial infiltrate consistent with viral pneumonia, patient is being started on Lovenox twice a day continued on tube feed will increase gentle hydration, blood glucose is running slightly high will increase the Levemir, critical care time spent 45 minutes 01/06/2020, patient seen and evaluated examined remains on nonrebreather mask still have problems associated with shortness of breath, care plan discussed with RN will continue current plan of care patient can be started on as needed breathing treatments will continue to gently diurese 01/05/2020, patient seen and evaluated examined remains on nonrebreather mask, nonverbal and noncommunicative essentially no significant change in neurological condition, she remained afebrile with stable hemodynamics her oxygen saturations improved to 96% on repeat nonrebreather mask 01/04/2020, patient laying on the bed on 100% nonrebreather mask and breathing is slightly short of breath, patient is on bronchodilator along with antibiotics, has been on Lasix as well, patient remains on Zosyn, labs reviewed white cell count is normal, labs reviewed, glucose is 342, BUN/creatinine is 25 and 0.7, stool for C. difficile is negative 01/02/2020, patient seen eval examined during the rounds patient has a rapid response this morning with the shortness of breath she however responded well with Lasix, Sands's catheter has been placed, shortness of breath have improved though, on 4 L saturation is 92% low-grade temperature of 99 is present, her chest x-ray assistive of the left lower lobe pneumonia and right perihilar infiltrate prominent lung markings likely fluid overload, Objective - Vital Signs Vital signs: Vital Signs Temp 97.9 F 01/08/20 08:00 Pulse 97 01/08/20 11:00 Resp 28 H 01/08/20 11:00 BP 106/70 01/08/20 11:00 Pulse Ox 96 01/08/20 11:00 Intake & Output 01/07/20 01/08/20 01/08/20 18:59 06:59 18:59 Intake Total 6225.912 5939.432 1375.029 Output Total 310 355 655 Balance 0231.932 3040.432 720.029 Weight 83.8 kg Intake: IV 900 1200 600 Sodium Chloride 0.45% 1, 900 1200 600 000 ml @ 100 mls/hr IV . Q10H [facility] Rx#:[id number] Intake, IV Titration 282.115 285.432 275.029 Amount Norepinephrine 4 mg In 180.913 186.108 175.029 Sodium Chloride 0.9% 250 ml @ 0.05 MCG/KG/MIN 15. 907 mls/hr IV .[id number] [facility] Rx#:[id number] Propofol 1,000 mg In 101.202 99.324 100 Empty Bag 1 bag @ Titrate IV .Q0M [facility] Rx#: [id number] Tube Feeding 440 750 400 Other 90 100 Output: Urine 310 355 655 Other: Voiding Method Indwelling Catheter Indwelling Catheter Indwelling Catheter - Exam - Neck Neck: no lymphadenopathy, no stridor - Respiratory Scattered rhonchi throughout, diminished to her left lower lobe. Respirations are symmetrical and nonlabored. - Cardiovascular Regular rhythm and rate. S1 and S2 present, negative for S3, gallop or murmur. Trace edema to her bilateral lower extremities. - Gastrointestinal Abdomen soft and nondistended. Active bowel sounds present in all 4 abdominal quadrants. PEG tube is in place. General gastrointestinal: no organomegaly, no rigid - Integumentary Skin is warm and dry. No clubbing or cyanosis is present. Integumentary: no rash - Neurologic Open eyes with verbal stimuli. - Labs CBC & Chem 7: 01/08/20 05:23 01/08/20 05:23 Labs: Abnormal Lab Results - Last 24 Hours (Table) 01/07/20 01/07/20 01/07/20 Range/Units 06:19 13:27 18:06 Plt Count (150-450) k/uL D-Dimer (<0.60) mg/L FEU ABG pO2 (83-108) mmHg ABG HCO3 (21-25) mmol/L ABG Total CO2 (19-24) mmol/L ABG O2 Saturation (94-97) % Chloride (98-107) mmol/L Carbon Dioxide (22-30) mmol/L BUN (7-17) mg/dL Glucose (74-99) mg/dL POC Glucose (mg/dL) 208 H 122 H (75-99) mg/dL Lactate Dehydrogenase (313-618) U/L C-Reactive Protein (<10.0) mg/L Procalcitonin 0.14 H (0.02-0.09) ng/mL 01/07/20 01/08/20 01/08/20 Range/Units 20:53 05:16 05:23 Plt Count 140 L (150-450) k/uL D-Dimer (<0.60) mg/L FEU ABG pO2 59 L* (83-108) mmHg ABG HCO3 29 H (21-25) mmol/L ABG Total CO2 30 H (19-24) mmol/L ABG O2 Saturation 90.3 L (94-97) % Chloride (98-107) mmol/L Carbon Dioxide (22-30) mmol/L BUN (7-17) mg/dL Glucose (74-99) mg/dL POC Glucose (mg/dL) 161 H (75-99) mg/dL Lactate Dehydrogenase (313-618) U/L C-Reactive Protein (<10.0) mg/L Procalcitonin (0.02-0.09) ng/mL 01/08/20 01/08/20 01/08/20 Range/Units 05:23 05:23 06:24 Plt Count (150-450) k/uL D-Dimer 1.79 H (<0.60) mg/L FEU ABG pO2 (83-108) mmHg ABG HCO3 (21-25) mmol/L ABG Total CO2 (19-24) mmol/L ABG O2 Saturation (94-97) % Chloride 109 H (98-107) mmol/L Carbon Dioxide 31 H (22-30) mmol/L BUN 21 H (7-17) mg/dL Glucose 187 H (74-99) mg/dL POC Glucose (mg/dL) 214 H (75-99) mg/dL Lactate Dehydrogenase 817 H (313-618) U/L C-Reactive Protein 25.2 H (<10.0) mg/L Procalcitonin (0.02-0.09) ng/mL Microbiology - Last 24 Hours (Table) 01/07/20 06:20 Gram Stain - Preliminary Sputum Sputum Culture - Preliminary Assessment and Plan Assessment: Acute hypoxic respiratory failure on ventilator COVID 19 pneumonia with acute worsening and inflammatory response/cytokine storm compared to yesterday inflammation drip at a meters are better under control Ventilator adjustment titrated oxygen down as tolerated if peak airway pressure goes up 35 will initiate pressure control ventilation was keep PEEP of 10 and current vent setting with including oxygen of 70% for now Continue gently rehydrate and monitor urine output, we'll increase the Lasix to 20 mg 2 times a day Hypernatremia now improved on half normal saline Aspiration pneumonia likely mixed bacterial and/or or gram-negative related Chronic right-sided weakness dysphagia and aphasia status post PEG tube COPD Insulin-dependent diabetes mellitus uncontrolled Hypertension hypertensive cardiovascular disease Chronic atrial fibrillation on anticoagulation Lovenox Plan: Titrated oxygen down to 70% further event adjustment as above Anticoagulation. Lovenox twice a day We will keep the dose of Levemir due to hyperglycemia him a sugars appears to be improved Continue Levophed titrated down to DC as per fluid resuscitation Continue gentle hydration Continue tube feed Ventilator adjustment Continue to check inflammation tree labs for covid19 as needed Monitor sodium levels closely Continue respiratory and contact isolation
[2020-01-08 12:46] LABS: Glucose,Whole Blood 244 mg/dL (75-99)
[2020-01-08] MEDS: METOPROLOL TARTRATE 50 MG TAB PEG/G-TUBE SCH ×2 (12:48→16:24)
--- NOTE | 2020-01-08 13:40 | P.PN ---
Subjective Progress Note Date: 01/08/20 Soledad Enriquez, is an 79-year-old female who resides at [facility] at this time will was noticed to have worsening mental status and persistent cough, patient started having elevated temperature up to 101 at that point she was sent to [facility] emergency room she had testing for influenza A and B which were negative she also had an instant test for Covid 19 which was positive she was admitted to telemetry floor she was started on IV Zithromax pulmonary and infectious disease consultation were requested. Patient also had evidence of dehydration with hypernatremia elevated sodium level at 151. Patient has a known history of multiple medical problems including history of stroke with right sided paralysis, history of aspiration patient has a PEG tube for feeding, history of insulin-dependent diabetes mellitus, history of hypertension, history of hyperlipidemia, and history of paroxysmal atrial fibrillation. On presentation patient had a temperature of 101 pulse of 82 respiration 18 blood pressure 119/63 and pulse ox of 91% on 4 L nasal cannula. White blood count was 4.8 chest x-ray revealed evidence of left basilar opacity. On 12/30/2019 patient was seen and examined on the medical floor she is somnolent responsive in no apparent distress there is low-grade fever temperature is 100.8 there is no chills no headache or dizziness no chest pain no shortness of breath no cough no nausea or vomiting no abdominal pain no diarrhea and no burning was urination. Nurse noticed some vaginal bleeding, hemoglobin is stable at 15. Pulse ox is 96% on 4 L nasal cannula , On 12/31/2019 patient was seen and examined on the medical floor she is somnolent responsive in no apparent distress, her fever is subsiding temperatures this morning 99 pulse ox is 92% on 4 L nasal cannula, patient is denying any complaints at this time however, she does not seem to be listening much to the questions, and she goes back to sleep fast. White blood count today is normal at 4.1 hemoglobin is 15.2 potassium is elevated at 5.8 On 01/01/2020 patient was seen and examined on the medical floor she is more alert and responsive today there is no fever or chills no headache or dizziness no chest pain no shortness of breath no cough no nausea or vomiting no abdominal pain no diarrhea and no urinary symptoms, she is receiving feeding through PEG tube at night, glucose level is elevated again, will increase Lantus dose to 25 units at bedtime, and continue was inserted into sliding scale. Patient is receiving oxygen via nasal cannula at 4 L her pulse ox is 92% patient does not s eem to be in any distress her temperature heart rates respiration rate and blood pressure are in normal range white blood count is 3.8 potassium 4.8 On 01/02/2020 patient was seen and examined on the medical floor she is alert and responsive in no apparent distress. This morning patient had an episode of shortness of breath with decreased O2 sat duration A team was called patient received IV Lasix Sands catheter was inserted chest x-ray was done. Currently patient is doing better pulse ox is 92% on 4 L nasal cannula. On 01/03/2020 patient was seen and examined on the medical floor she is alert responsive in no apparent distress, her pulse ox is 92% on 6 L nasal cannula she is afebrile blood pressure is 123/87 chest x-ray done yesterday reveals left lower lobe infiltrate and right perihilar infiltrates. Without significant improvement from prior x-rays. On 01/04/2020 patient was seen and examined on the medical floor she is more alert and responsive today he denies any pain or discomfort, her pulse ox was lower today and she was switched to a nonrebreather mask On 01/05/2020 patient was seen and examined on the medical floor, she is alert and responsive at this time, she is tolerating tube feeding well, she denied any pain or discomfort. On 01/06/2020 patient was seen and examined on the medical floor, she is alert responsive in no apparent distress she is answering a few questions with yes or no or nodding her head she is tolerating tube feeding well she is denying any pain or discomfort at this time, her temperature is 98.1 blood pressure 135/75 pulse ox 90% on nonrebreather mask. On 01/07/2020 Patient was seen and examined in the ICU. Around 7:00 am this morning patient was on the floor she was having worsening shortness of breath and using accessory muscles she was on nonrebreather mask and her O2 sat duration was 88% Dr. Caba realtime reporter was contacted patient was transferred to ICU she was intubated sedated and started on mechanical ventilation, she was also started on levophed for blood pressure support. On 01/08/2020 Patient was seen and examined in the ICU. She is intubated sedated maintained on mechanical ventilation, she is still on a small dose of Levophed. She is receiving tube feeding via PEG tube. Her ABG reveals a pH of 7.4 to pCO2 45 by mouth to 59 FiO2 is 70% Objective - Vital Signs Vital signs: Vital Signs Temp 97.9 F 01/08/20 08:00 Pulse 97 01/08/20 11:00 Resp 28 H 01/08/20 11:00 BP 106/70 01/08/20 11:00 Pulse Ox 96 01/08/20 11:00 Intake & Output 01/07/20 01/08/20 01/08/20 18:59 06:59 18:59 Intake Total 7836.110 2730.432 1396.025 Output Total 310 355 655 Balance 7466.039 6015.432 741.025 Weight 83.8 kg Intake: IV 900 1200 600 Sodium Chloride 0.45% 1, 900 1200 600 000 ml @ 100 mls/hr IV . Q10H [facility] Rx#:[id number] Intake, IV Titration 282.115 285.432 296.025 Amount Norepinephrine 4 mg In 180.913 186.108 196.025 Sodium Chloride 0.9% 250 ml @ 0.05 MCG/KG/MIN 15. 907 mls/hr IV .[id number] [facility] Rx#:[id number] Propofol 1,000 mg In 101.202 99.324 100 Empty Bag 1 bag @ Titrate IV .Q0M [facility] Rx#: [id number] Tube Feeding 440 750 400 Other 90 100 Output: Urine 310 355 655 Other: Voiding Method Indwelling Catheter Indwelling Catheter Indwelling Catheter - Exam In general patient is intubated sedated maintained on mechanical ventilation HEENT head normocephalic and atraumatic Neck is supple no JVD no goiter no lymphadenopathy Chest exam reveals a few scattered crackles no wheezing Cardiac exam reveals regular heart sounds no gallops no murmurs Abdomen is soft nontender no organomegaly with normal bowel sounds Extremity exam reveals no edema no cyanosis or clubbing - Labs CBC & Chem 7: 01/08/20 05:23 01/08/20 05:23 Labs: Abnormal Lab Results - Last 24 Hours (Table) 01/07/20 01/07/20 01/07/20 Range/Units 06:19 18:06 20:53 Plt Count (150-450) k/uL D-Dimer (<0.60) mg/L FEU ABG pO2 (83-108) mmHg ABG HCO3 (21-25) mmol/L ABG Total CO2 (19-24) mmol/L ABG O2 Saturation (94-97) % Chloride (98-107) mmol/L Carbon Dioxide (22-30) mmol/L BUN (7-17) mg/dL Glucose (74-99) mg/dL POC Glucose (mg/dL) 122 H 161 H (75-99) mg/dL Lactate Dehydrogenase (313-618) U/L C-Reactive Protein (<10.0) mg/L Procalcitonin 0.14 H (0.02-0.09) ng/mL 01/08/20 01/08/20 01/08/20 Range/Units 05:16 05:23 05:23 Plt Count 140 L (150-450) k/uL D-Dimer (<0.60) mg/L FEU ABG pO2 59 L* (83-108) mmHg ABG HCO3 29 H (21-25) mmol/L ABG Total CO2 30 H (19-24) mmol/L ABG O2 Saturation 90.3 L (94-97) % Chloride 109 H (98-107) mmol/L Carbon Dioxide 31 H (22-30) mmol/L BUN 21 H (7-17) mg/dL Glucose 187 H (74-99) mg/dL POC Glucose (mg/dL) (75-99) mg/dL Lactate Dehydrogenase 817 H (313-618) U/L C-Reactive Protein 25.2 H (<10.0) mg/L Procalcitonin (0.02-0.09) ng/mL 01/08/20 01/08/20 01/08/20 Range/Units 05:23 06:24 12:45 Plt Count (150-450) k/uL D-Dimer 1.79 H (<0.60) mg/L FEU ABG pO2 (83-108) mmHg ABG HCO3 (21-25) mmol/L ABG Total CO2 (19-24) mmol/L ABG O2 Saturation (94-97) % Chloride (98-107) mmol/L Carbon Dioxide (22-30) mmol/L BUN (7-17) mg/dL Glucose (74-99) mg/dL POC Glucose (mg/dL) 214 H 244 H (75-99) mg/dL Lactate Dehydrogenase (313-618) U/L C-Reactive Protein (<10.0) mg/L Procalcitonin (0.02-0.09) ng/mL Microbiology - Last 24 Hours (Table) 01/07/20 06:20 Gram Stain - Preliminary Sputum Sputum Culture - Preliminary Assessment and Plan Plan: #1 pneumonia likely related to COVID 19 viral pneumonitis, followed by pulmonary and infectious disease, condition has worsened over night patient is currently in ICU maintained on mechanical ventilation #2 severe hypernatremia, on admission corrected #3 mental status changes likely related to hypernatremia and metabolic encephalopathy related to infection #4 acute hypoxic respiratory failure related to pneumonia, requiring oxygen at 4 L nasal cannula at this time #5 underlying history of hypertension #6 underlying history of COPD #7 underlying history of insulin-dependent diabetes mellitus millimeters #8 underlying history of stroke with right sided paralysis #9 chronic dysphagia and aspiration requiring PEG tube feeding #10 underlying history of atrial fibrillation maintained on Xarelto #11 vaginal bleeding, at this time will monitor closely, will check daily CBC, and monitor for amount of bleeding. Once her current illness has subsided, will investigate further with pelvic ultrasound and CLINICAL TRAINING SPECIALIST consult. #12 hyperkalemia, corrected At this time patient is into in the intensive care unit her condition has worsened overnight She is intubated sedated maintained on mechanical ventilation Consultation for pulmonary and infectious disease requested in the emergency room and are following patient's Will follow closely Prognosis is guarded due to multiple underlying comorbid conditions
[2020-01-08] MEDS: SODIUM CHLORIDE 0.45% 1,000 ML IV SCH ×2 (16:09→21:26)
[2020-01-08 16:57] LABS: Glucose,Whole Blood 221 mg/dL (75-99)
[2020-01-08] MEDS: LISINOPRIL 2.5 MG TAB PEG/G-TUBE SCH (17:10)
[2020-01-08 20:56] LABS: Glucose,Whole Blood 224 mg/dL (75-99)
[2020-01-08] MEDS: FERROUS SULFATE ORAL ELIXIR 300 MG/5 ML CUP PEG/G-TUBE SCH (21:01)
[2020-01-08] MEDS: INSULIN DETEMIR (LEVEMIR) 100 UNIT/ML SYR SQ SCH (21:01)
[2020-01-08] MEDS: PRAVASTATIN SODIUM 20 MG TAB PEG/G-TUBE SCH (21:01)
[2020-01-08] MEDS: cloNIDine HCL 0.1 MG TAB PEG/G-TUBE SCH (21:02)
[2020-01-08] MEDS: METOPROLOL TARTRATE 25 MG TAB PEG/G-TUBE SCH (21:02)
[2020-01-09] MEDS: NOREPINEPHRINE 4 MG in SODIUM CHLORIDE 0.9% 250 ML IV SCH ×2 (00:18→23:52)
[2020-01-09] MEDS: PIPERACILLIN-TAZOBACTAM 3.375 GM in SODIUM CHLORIDE 0.9% 100 ML IVPB SCH ×4 (00:18→23:51)
--- NOTE | 2020-01-09 00:51 | PN ---
PROGRESS NOTE DATE OF SERVICE: 01/08/2020 REASON FOR FOLLOWUP: Pneumonia. INTERVAL HISTORY: The patient is currently afebrile. Patient is hemodynamically stable. The patient is on low-dose pressor support. FiO2 is currently down to 70%. No significant purulent secretion through ET or any diarrhea reported. PHYSICAL EXAMINATION: Blood pressure 106/62 with a pulse of 120, temperature 98. She is 96% on 70% FiO2. General description is an elderly female intubated on the vent. RESPIRATORY SYSTEM: Unlabored breathing, decreased breath sounds in the bases, no wheeze. HEART: S1, S2. Regular rate and rhythm. ABDOMEN: Soft, no tenderness. LABS: Hemoglobin is 13.7, white count 4.9, BUN of 21, creatinine 0.63. Sputum currently showing the yeast. DIAGNOSTIC IMPRESSION AND PLAN: Patient with acute respiratory failure which is likely multifactorial in patient who did have confirmed COVID-19 pneumonia for which the patient completed her Plaquenil and steroids therapy. Subsequently did have worsening respiratory distress and ended up getting intubated. Hence, concern for possible aspiration pneumonitis. Patient is covered with Zosyn to continue and will monitor clinical course closely. MMODL / IJN: [id number] / MTDD
[2020-01-09] MEDS: PROPOFOL 1,000 MG in EMPTY BAG 1 BAG IV SCH ×3 (01:47→16:57)
[2020-01-09 04:47] LABS: Basophils % (A) 0 %; Eosinophils # (A) 0.2 k/uL (0-0.7); Eosinophils % (A) 4 %; HCT 44.9 % (34.0-46.0); Lymphocytes # (A) 0.9 k/uL (1.0-4.8); Lymphocytes % (A) 17 %; MCH 29.7 pg (25.0-35.0); MCHC 31.1 g/dL (31.0-37.0); MCV 95.5 fL (80.0-100.0); Monocytes # (A) 0.2 k/uL (0-1.0); Monocytes % (A) 4 %; Neutrophils % (A) 73 %; Platelet Count 163 k/uL (150-450); RDW 13.7 % (11.5-15.5); WBC 5.4 k/uL (3.8-10.6)
[2020-01-09 05:00] LABS: ALT 18 U/L (4-34); African American GFR (CKD) >90 (>60 ml/min/1.73 sqM); Albumin 2.3 g/dL (3.5-5.0); Anion Gap 2 mmol/L; Blood Urea Nitrogen 18 mg/dL (7-17); C Reactive Protein 39.2 mg/L (<10.0); Carbon Dioxide 30 mmol/L (22-30); Chloride 108 mmol/L (98-107); Glucose 232 mg/dL (74-99); Non-African American GFR(CKD) 89 (>60 ml/min/1.73 sqM); Sodium 140 mmol/L (137-145); Total Bilirubin 0.6 mg/dL (0.2-1.3); Total Protein 5.1 g/dL (6.3-8.2)
[2020-01-09 05:13] LABS: ABG Base Excess 4.2 mmol/L; ABG HCO3 29 mmol/L (21-25); ABG Oxygen Saturation 95.4 % (94-97); ABG PCO2 47 mmHg (35-45); ABG PO2 77 mmHg (83-108); ABG TCO2 30 mmol/L (19-24); Allen Test Performed? Yes
[2020-01-09 05:18] LABS: AST 26 U/L (14-36); Alkaline Phosphatase 78 U/L (38-126); LDH 877 U/L (313-618); Potassium 4.3 mmol/L (3.5-5.1)
[2020-01-09 05:56] LABS: Glucose,Whole Blood 212 mg/dL (75-99)
[2020-01-09] MEDS: SODIUM CHLORIDE 0.45% 1,000 ML IV SCH ×3 (06:12→23:51)
[2020-01-09] MEDS: INSULIN ASPART (NovoLOG) 100 UNIT/ML VIAL SQ SCH ×4 (06:13→22:23)
[2020-01-09] MEDS: ALBUTEROL HFA INHALER INHALATION SCH ×4 (07:22→19:23)
--- NOTE | 2020-01-09 07:27 | CDI ---
Documentation Clarification Form Date: 01/09/2020 07:09:29 AM From: Betsy Pedroza RN, CCDS Admit Date: 12/28/2019 07:12:00 PM Patient Name: Soledad Enriquez Visit Number: [id number] ATTENTION: The Clinical Documentation Specialists (CDI) and [facility] Coding Staff appreciate your assistance in clarifying documentation. Please respond to the clarification below the line at the bottom and electronically sign. The CDI & [facility] Coding staff will review the response and follow-up if needed. Please note: Queries are made part of the Legal Health Record. If you have any questions, please contact the author of this message via ITS. Dr. Yvonne Dominguez Fluid overload is documented and requires further specificity. History/Risk Factors: Atrial Fib, Asthma, COPD, DM2, HTN Clinical Indicators: 01/01 Pulmonary progress Notes: "patient seen eval examined during the rounds patient has a rapid response this morning with the shortness of breath she however responded well with Lasix, Sands's catheter has been placed, shortness of breath have improved though, on 4 L saturation is 92% low-grade temperature of 99 is present, her chest x-ray assistive of the left lower lobe pneumonia and right perihilar infiltrate prominent lung markings likely fluid overload. Fluid overload responded with Lasix, will decrease the dose to 20" 01/07 Pulmonary progress note: "increase her Lasix to 20 mg daily will keep patient on 70% and PEEP of 10 and today attempt to titrate oxygen down again tomorrow chest x-ray showed some improved aviation compared to prior study stable ET tube, and seems to tolerating Lasix well any significant compromise in hemodynamic status." 01/03 2000 VS/Pulse OX: Temp 98.3, HR 111, RR 32 labored and tachypenea, B/P 115/75, Spo2 88% 6L NC BNP: not checked 07/23/17 Echocardiogram Results: EF 55-60%, concentric LVH 01/07 Chest X Ray:"There is bibasilar airspace disease. There are patchy bilateral infiltrates. The heart is upper limits of normal in size. There is blunting of both CP angles and I cannot exclude small effusions." Treatment: 01/01 & 01/02 Lasix 40 mg IVP QD 01/03-01/07 Lasix 20 mg IVP QD 01/07 Lasix 20 mg IVP A 12 hrs 01/06 500 cc 0.9% NS IVF Bolus In your professional opinion, can you please clarify the acuity and type of CHF if known? Systolic Heart Failure: Acute Chronic Acute on Chronic Diastolic Heart Failure: Acute Chronic Acute on Chronic Systolic & Diastolic Heart Failure: Acute Chronic Acute on Chronic Heart Failure Unable to Determine Other, please specify (Last Revision: December 2017) unable to determine MTDD
--- NOTE | 2020-01-09 07:38 | XR ---
EXAMINATION TYPE: XR chest 1V portable DATE OF EXAM: 01/09/2020 COMPARISON: NONE HISTORY: SOB, Follow Up FINDINGS: Endotracheal tube is unchanged in position. Extent alveolar and interstitial infiltrates are stable. Stable appearance of the cardio-mediastinal structures at this time. Pleural effusion unchanged. IMPRESSION: 1. Stable portable chest. Clinical correlation and follow up until resolution is recommended.
--- NOTE | 2020-01-09 08:09 | CDI ---
Documentation Clarification Form Date: 01/09/2020 0803 CDS: Betsy Pedroza RN, CCDS Admit Date: 12/28/20191911 Patient Name: Soledad Enriquez ATTENTION: The Clinical Documentation Specialists (CDI) and [facility] Coding Staff appreciate your assistance in clarifying documentation. Please respond to the clarification below the line at the bottom and electronically sign. The CDI & [facility] Coding staff will review the response and follow-up if needed. Please note: Queries are made part of the Legal Health Record. If you have any questions, please contact the author of this message via ITS. Dr. Dominguez Patient is noted to be on Levophed. Please provide a clinically significant diagnosis for treatment. Patient history/risk factors: Covid 19 viral pneumonia with superimposed aspiration pneumonia, acute hypoxic respiratory failure, metabolic encephalopathy, DM2, COPD, Vaginal Bleeding Clinical Indicators: 01/06 0700 Vitals: HR 104, RR 26 MV, B/P 82/55, Spo2 94% on 100% MV Treatment: 01/06 0715 patient was started on a Levophed drip titrate for B/P 01/06 1130 500cc 0.9% NS IVF Bolus In your professional opinion, can you please specify the type of shock if known? Sepsis with Septic Shock Suspected or known causative organism Any associated organ failure Hypovolemic Shock Cause Other, please specify Unable to determine Please continue to document in your progress notes and discharge summary in order to capture severity of illness and risk of mortality. Include clinical findings that support your diagnosis. Sepsis with septic shock, likely related to COVID-19 virus MTDD
[2020-01-09] MEDS: PANTOPRAZOLE 40 MG/10 ML VIAL IV SCH (09:18)
[2020-01-09] MEDS: CHLORHEXIDINE GLUCONATE 15 ML CUP MUCOUS MEM SCH ×2 (09:18→20:39)
[2020-01-09] MEDS: FUROSEMIDE 10 MG/ML 2 ML VIAL IV SCH ×2 (09:18→20:39)
[2020-01-09] MEDS: amLODIPine 10 MG TAB PEG/G-TUBE SCH (09:18)
[2020-01-09] MEDS: ZINC SULFATE 220 MG CAP PO SCH (09:19)
[2020-01-09] MEDS: CHOLECALCIFEROL 1,000 UNIT TAB PEG/G-TUBE SCH (09:19)
[2020-01-09] MEDS: METOPROLOL TARTRATE 25 MG TAB PEG/G-TUBE SCH ×2 (09:19→20:40)
[2020-01-09] MEDS: LISINOPRIL 2.5 MG TAB PEG/G-TUBE SCH (09:19)
[2020-01-09 11:25] LABS: Ferritin 514.5 ng/mL (10.0-291.0)
[2020-01-09 11:27] LABS: Ferritin 449.2 ng/mL (10.0-291.0)
[2020-01-09 11:45] LABS: Glucose,Whole Blood 198 mg/dL (75-99)
[2020-01-09] MEDS ORDERED: LIDOCAINE 1% INJ 10MG/ML (20 ML MDV) SQ ONE (15:10)
--- NOTE | 2020-01-09 15:38 | P.PN ---
Subjective Progress Note Date: 01/09/20 Soledad Enriquez, is an 79-year-old female who resides at a correction at this time will was noticed to have worsening mental status and persistent cough, patient started having elevated temperature up to 101 at that point she was sent to [facility] emergency room she had testing for influenza A and B which were negative she also had an instant test for Covid 19 which was positive she was admitted to telemetry floor she was started on IV Zithromax pulmonary and infectious disease consultation were requested. Patient also had evidence of dehydration with hypernatremia elevated sodium level at 151. Patient has a known history of multiple medical problems including history of stroke with right sided paralysis, history of aspiration patient has a PEG tube for feeding, history of insulin-dependent diabetes mellitus, history of hypertension, history of hyperlipidemia, and history of paroxysmal atrial fibrillation. On presentation patient had a temperature of 101 pulse of 82 respiration 18 blood pressure 119/63 and pulse ox of 91% on 4 L nasal cannula. White blood count was 4.8 chest x-ray revealed evidence of left basilar opacity. On 12/30/2019 patient was seen and examined on the medical floor she is somnolent responsive in no apparent distress there is low-grade fever temperature is 100.8 there is no chills no headache or dizziness no chest pain no shortness of breath no cough no nausea or vomiting no abdominal pain no diarrhea and no burning was urination. Nurse noticed some vaginal bleeding, hemoglobin is stable at 15. Pulse ox is 96% on 4 L nasal cannula , On 12/31/2019 patient was seen and examined on the medical floor she is somnolent responsive in no apparent distress, her fever is subsiding temperatures this morning 99 pulse ox is 92% on 4 L nasal cannula, patient is denying any complaints at this time however, she does not seem to be listening much to the questions, and she goes back to sleep fast. White blood count today is normal at 4.1 hemoglobin is 15.2 potassium is elevated at 5.8 On 01/01/2020 patient was seen and examined on the medical floor she is more alert and responsive today there is no fever or chills no headache or dizziness no chest pain no shortness of breath no cough no nausea or vomiting no abdominal pain no diarrhea and no urinary symptoms, she is receiving feeding through PEG tube at night, glucose level is elevated again, will increase Lantus dose to 25 units at bedtime, and continue was inserted into sliding scale. Patient is receiving oxygen via nasal cannula at 4 L her pulse ox is 92% patient does not s eem to be in any distress her temperature heart rates respiration rate and blood pressure are in normal range white blood count is 3.8 potassium 4.8 On 01/02/2020 patient was seen and examined on the medical floor she is alert and responsive in no apparent distress. This morning patient had an episode of shortness of breath with decreased O2 sat duration A team was called patient received IV Lasix Sands catheter was inserted chest x-ray was done. Currently patient is doing better pulse ox is 92% on 4 L nasal cannula. On 01/03/2020 patient was seen and examined on the medical floor she is alert responsive in no apparent distress, her pulse ox is 92% on 6 L nasal cannula she is afebrile blood pressure is 123/87 chest x-ray done yesterday reveals left lower lobe infiltrate and right perihilar infiltrates. Without significant improvement from prior x-rays. On 01/04/2020 patient was seen and examined on the medical floor she is more alert and responsive today he denies any pain or discomfort, her pulse ox was lower today and she was switched to a nonrebreather mask On 01/05/2020 patient was seen and examined on the medical floor, she is alert and responsive at this time, she is tolerating tube feeding well, she denied any pain or discomfort. On 01/06/2020 patient was seen and examined on the medical floor, she is alert responsive in no apparent distress she is answering a few questions with yes or no or nodding her head she is tolerating tube feeding well she is denying any pain or discomfort at this time, her temperature is 98.1 blood pressure 135/75 pulse ox 90% on nonrebreather mask. On 01/07/2020 Patient was seen and examined in the ICU. Around 7:00 am this morning patient was on the floor she was having worsening shortness of breath and using accessory muscles she was on nonrebreather mask and her O2 sat duration was 88% Dr. Caba editor [employer] was contacted patient was transferred to ICU she was intubated sedated and started on mechanical ventilation, she was also started on levophed for blood pressure support. On 01/08/2020 Patient was seen and examined in the ICU. She is intubated sedated maintained on mechanical ventilation, she is still on a small dose of Levophed. She is receiving tube feeding via PEG tube. Her ABG reveals a pH of 7.4 to pCO2 45 by mouth to 59 FiO2 is 70% On 01/09/2020 patient was seen and examined in the ICU she remains intubated sedated maintained on mechanical ventilation, she remains on a small dose of levophed for pressure support. ABG reveals a pH of 7.4 pCO2 47 PO2 77 with FiO2 of 70% her temperature is 90.8 pulse 69 respiration 27 blood pressure 112/70 Objective - Vital Signs Vital signs: Vital Signs Temp 98 F 01/09/20 08:00 Pulse 61 01/09/20 11:00 Resp 21 01/09/20 11:00 BP 92/55 01/09/20 11:00 Pulse Ox 95 01/09/20 11:00 Intake & Output 01/08/20 01/09/20 01/09/20 18:59 06:59 18:59 Intake Total 2931.466 2419.552 999.429 Output Total 845 1245 230 Balance 2086.466 1174.552 769.429 Weight 85 kg 85 kg Intake: IV 1200 1200 500 Sodium Chloride 0.45% 1, 1200 1200 500 000 ml @ 100 mls/hr IV . Q10H [facility] Rx#:[id number] Intake, IV Titration 426.466 418.552 99.429 Amount Norepinephrine 4 mg In 237.010 248.731 Sodium Chloride 0.9% 250 ml @ 0.05 MCG/KG/MIN 15. 907 mls/hr IV .[id number] [facility] Rx#:[id number] Propofol 1,000 mg In 189.456 169.821 99.429 Empty Bag 1 bag @ Titrate IV .Q0M [facility] Rx#: [id number] Oral 0 Tube Feeding 1205 741 400 Other 100 60 Output: Urine 845 1245 230 Other: Voiding Method Indwelling Catheter Indwelling Catheter Indwelling Catheter - Exam In general patient is intubated sedated maintained on mechanical ventilation HEENT head normocephalic and atraumatic Neck is supple no JVD no goiter no lymphadenopathy Chest exam reveals a few scattered crackles no wheezing Cardiac exam reveals regular heart sounds no gallops no murmurs Abdomen is soft nontender no organomegaly with normal bowel sounds Extremity exam reveals no edema no cyanosis or clubbing - Labs CBC & Chem 7: 01/09/20 04:09 01/09/20 04:09 Labs: Abnormal Lab Results - Last 24 Hours (Table) 01/08/20 01/08/20 01/08/20 Range/Units 05:23 16:55 20:54 Lymphocytes # (1.0-4.8) k/uL ABG pCO2 (35-45) mmHg ABG pO2 (83-108) mmHg ABG HCO3 (21-25) mmol/L ABG Total CO2 (19-24) mmol/L Chloride (98-107) mmol/L BUN (7-17) mg/dL Glucose (74-99) mg/dL POC Glucose (mg/dL) 221 H 224 H (75-99) mg/dL Calcium (8.4-10.2) mg/dL Ferritin 514.5 H (10.0-291.0) ng/mL Lactate Dehydrogenase (313-618) U/L C-Reactive Protein (<10.0) mg/L Total Protein (6.3-8.2) g/dL Albumin (3.5-5.0) g/dL 01/09/20 01/09/20 01/09/20 Range/Units 04:09 04:09 05:00 Lymphocytes # 0.9 L (1.0-4.8) k/uL ABG pCO2 47 H (35-45) mmHg ABG pO2 77 L (83-108) mmHg ABG HCO3 29 H (21-25) mmol/L ABG Total CO2 30 H (19-24) mmol/L Chloride 108 H (98-107) mmol/L BUN 18 H (7-17) mg/dL Glucose 232 H (74-99) mg/dL POC Glucose (mg/dL) (75-99) mg/dL Calcium 8.0 L (8.4-10.2) mg/dL Ferritin 449.2 H (10.0-291.0) ng/mL Lactate Dehydrogenase 877 H (313-618) U/L C-Reactive Protein 39.2 H (<10.0) mg/L Total Protein 5.1 L (6.3-8.2) g/dL Albumin 2.3 L (3.5-5.0) g/dL 01/09/20 01/09/20 Range/Units 05:55 11:43 Lymphocytes # (1.0-4.8) k/uL ABG pCO2 (35-45) mmHg ABG pO2 (83-108) mmHg ABG HCO3 (21-25) mmol/L ABG Total CO2 (19-24) mmol/L Chloride (98-107) mmol/L BUN (7-17) mg/dL Glucose (74-99) mg/dL POC Glucose (mg/dL) 212 H 198 H (75-99) mg/dL Calcium (8.4-10.2) mg/dL Ferritin (10.0-291.0) ng/mL Lactate Dehydrogenase (313-618) U/L C-Reactive Protein (<10.0) mg/L Total Protein (6.3-8.2) g/dL Albumin (3.5-5.0) g/dL Microbiology - Last 24 Hours (Table) 01/07/20 06:20 Gram Stain - Final Sputum Sputum Culture - Final Deloris glabrata Corynebacterium striatum Assessment and Plan Plan: #1 pneumonia likely related to COVID 19 viral pneumonitis, followed by pulmonary and infectious disease, condition has worsened over night patient is currently in ICU maintained on mechanical ventilation #2 severe hypernatremia, on admission corrected #3 mental status changes likely related to hypernatremia and metabolic encephalo olga lidia related to infection #4 acute hypoxic respiratory failure related to pneumonia, requiring oxygen at 4 L nasal cannula at this time #5 underlying history of hypertension #6 underlying history of COPD #7 underlying history of insulin-dependent diabetes mellitus millimeters #8 underlying history of stroke with right sided paralysis #9 chronic dysphagia and aspiration requiring PEG tube feeding #10 underlying history of atrial fibrillation maintained on Xarelto #11 vaginal bleeding, at this time will monitor closely, will check daily CBC, and monitor for amount of bleeding. Once her current illness has subsided, will investigate further with pelvic ultrasound and DIRECTOR OF PSYCHOLOGY consult. #12 hyperkalemia, corrected At this time patient is into in the intensive care unit her condition has worsened overnight She is intubated sedated maintained on mechanical ventilation Consultation for pulmonary and infectious disease requested in the emergency room and are following patient's Will follow closely Prognosis is guarded due to multiple underlying comorbid conditions
--- NOTE | 2020-01-09 15:58 | XR ---
EXAMINATION TYPE: XR chest 1V DATE OF EXAM: 01/09/2020 COMPARISON: 01/09/2020 INDICATION: Line placement TECHNIQUE: Single frontal view of the chest is obtained. FINDINGS: The heart size is normal. The pulmonary vasculature is prominent. Is diffuse increased lung markings bilaterally. Small left pleural effusion is present. Right lateral chest is excluded from the [id number]. Endotracheal tube tip 6.5 cm above the khadar. Left-sided PICC line is present with the tip in the re gion of the proximal right atrium IMPRESSION: 1. PICC line placement with the tip in the region of the proximal right atrium. 2. Endotracheal tube. 3. Diffuse increased lung markings and small pleural effusions
[2020-01-09] MEDS: ENOXAPARIN 40 MG/0.4 ML SYRINGE SQ SCH ×2 (16:52→20:39)
[2020-01-09 17:13] LABS: Glucose,Whole Blood 166 mg/dL (75-99)
--- NOTE | 2020-01-09 17:37 | PN ---
PROGRESS NOTE DATE OF SERVICE: 01/09/2020 REASON FOR FOLLOWUP: Pneumonia. INTERVAL HISTORY: The patient is currently afebrile. The patient is hemodynamically stable, not on any pressor support. She remains intubated on the vent. FiO2 is currently 70%. No significant purulent secretion through the ET or any diarrhea reported. PHYSICAL EXAMINATION: Blood pressure 126/76, pulse of 68, temperature 98.1. She is 99% on 70% FiO2. General description is a middle-aged female lying in bed, intubated on the vent. RESPIRATORY SYSTEM: Unlabored breathing with decreased breath sounds at the base. No wheeze. HEART: S1, S2. Regular rate and rhythm. ABDOMEN: Soft. No tenderness. LABS: Hemoglobin is 14, white count 5.4. BUN of 18, creatinine 0.54. Sputum has been Deloris and corynebacterium. DIAGNOSTIC IMPRESSION AND PLAN: 1. Patient with acute respiratory failure which is multifactorial in this patient who did have a component of pneumonia, possibly aspiration, for which the patient is currently covered with Zosyn; to continue and monitor her clinical course closely. 2. Patient's urine has been Deloris glabrata, though the patient did have a follow-up UA on 01/07/20 which was negative; possible contamination colonization. No need for any further for the same thing. MMODL / IJN: [id number] /
[2020-01-09] MEDS: cloNIDine HCL 0.1 MG TAB PEG/G-TUBE SCH (20:38)
[2020-01-09] MEDS: PRAVASTATIN SODIUM 20 MG TAB PEG/G-TUBE SCH (20:39)
[2020-01-09] MEDS: FERROUS SULFATE ORAL ELIXIR 300 MG/5 ML CUP PEG/G-TUBE SCH (20:39)
[2020-01-09] MEDS: INSULIN DETEMIR (LEVEMIR) 100 UNIT/ML SYR SQ SCH (20:39)
[2020-01-09 20:50] LABS: Glucose,Whole Blood 142 mg/dL (75-99)
[2020-01-10 05:17] LABS: Basophils % (A) 1 %; Eosinophils # (A) 0.1 k/uL (0-0.7); Eosinophils % (A) 3 %; HCT 42.1 % (34.0-46.0); HGB 13.1 gm/dL (11.4-16.0); Lymphocytes # (A) 0.9 k/uL (1.0-4.8); Lymphocytes % (A) 19 %; MCH 30.2 pg (25.0-35.0); MCHC 31.3 g/dL (31.0-37.0); MCV 96.5 fL (80.0-100.0); Mean Platelet Volume 9.7; Monocytes # (A) 0.2 k/uL (0-1.0); Monocytes % (A) 4 %; Neutrophils # (A) 3.2 k/uL (1.3-7.7); Neutrophils % (A) 71 %; Platelet Count 157 k/uL (150-450); RBC 4.36 m/uL (3.80-5.40); WBC 4.6 k/uL (3.8-10.6)
[2020-01-10 05:24] LABS: ALT 21 U/L (4-34); AST 29 U/L (14-36); African American GFR (CKD) >90 (>60 ml/min/1.73 sqM); Albumin 2.2 g/dL (3.5-5.0); Alkaline Phosphatase 80 U/L (38-126); Anion Gap 0 mmol/L; Blood Urea Nitrogen 12 mg/dL (7-17); C Reactive Protein 39.5 mg/L (<10.0); Calcium 8.2 mg/dL (8.4-10.2); Carbon Dioxide 32 mmol/L (22-30); Chloride 109 mmol/L (98-107); Creatine Kinase <20 U/L (30-135); Glucose 125 mg/dL (74-99); LDH 762 U/L (313-618); Non-African American GFR(CKD) >90 (>60 ml/min/1.73 sqM); Potassium 3.3 mmol/L (3.5-5.1); Sodium 141 mmol/L (137-145); Total Bilirubin 0.4 mg/dL (0.2-1.3)
[2020-01-10 05:55] LABS: ABG Base Excess 5.8 mmol/L; ABG HCO3 31 mmol/L (21-25); ABG Oxygen Saturation 90.2 % (94-97); ABG PCO2 52 mmHg (35-45); ABG PH 7.39 (7.35-7.45); ABG TCO2 33 mmol/L (19-24); Allen Test Performed? Yes
[2020-01-10 06:25] LABS: Glucose,Whole Blood 120 mg/dL (75-99)
[2020-01-10] MEDS: INSULIN ASPART (NovoLOG) 100 UNIT/ML VIAL SQ SCH ×4 (06:49→21:50)
[2020-01-10] MEDS: POTASSIUM BICARBONATE/CIT AC 20 MEQ TABLET.EFF NG-TUBE SCH ×2 (07:00→09:27)
[2020-01-10] MEDS: ALBUTEROL HFA INHALER INHALATION SCH ×4 (07:10→19:27)
--- NOTE | 2020-01-10 07:56 | XR ---
EXAMINATION TYPE: XR chest 1V portable DATE OF EXAM: 01/10/2020 COMPARISON: 01/09/2020 INDICATION: Tube placement TECHNIQUE: Single frontal view of the chest is obtained. FINDINGS: The heart size is normal. The pulmonary vasculature is normal. There is diffuse increased lung markings bilaterally. Small pleural effusions are present. Endotracheal tube tip is above the khadar. Left central venous catheter tip is within the deep right atrium IMPRESSION: 1. Worsening bilateral lung infiltrates. Correlate for atypical pneumonia and pulmonary edema. 2. Lines and catheters stable in position
--- NOTE | 2020-01-10 08:36 | P.PN ---
Subjective Progress Note Date: 01/10/20 Soledad Enriquez, is an 79-year-old female who resides at a alf at this time will was noticed to have worsening mental status and persistent cough, patient started having elevated temperature up to 101 at that point she was sent to [facility] emergency room she had testing for influenza A and B which were negative she also had an instant test for Covid 19 which was positive she was admitted to telemetry floor she was started on IV Zithromax pulmonary and infectious disease consultation were requested. Patient also had evidence of dehydration with hypernatremia elevated sodium level at 151. Patient has a known history of multiple medical problems including history of stroke with right sided paralysis, history of aspiration patient has a PEG tube for feeding, history of insulin-dependent diabetes mellitus, history of hypertension, history of hyperlipidemia, and history of paroxysmal atrial fibrillation. On presentation patient had a temperature of 101 pulse of 82 respiration 18 blood pressure 119/63 and pulse ox of 91% on 4 L nasal cannula. White blood count was 4.8 chest x-ray revealed evidence of left basilar opacity. On 12/30/2019 patient was seen and examined on the medical floor she is somnolent responsive in no apparent distress there is low-grade fever temperature is 100.8 there is no chills no headache or dizziness no chest pain no shortness of breath no cough no nausea or vomiting no abdominal pain no diarrhea and no burning was urination. Nurse noticed some vaginal bleeding, hemoglobin is stable at 15. Pulse ox is 96% on 4 L nasal cannula , On 12/31/2019 patient was seen and examined on the medical floor she is somnolent responsive in no apparent distress, her fever is subsiding temperatures this morning 99 pulse ox is 92% on 4 L nasal cannula, patient is denying any complaints at this time however, she does not seem to be listening much to the questions, and she goes back to sleep fast. White blood count today is normal at 4.1 hemoglobin is 15.2 potassium is elevated at 5.8 On 01/01/2020 patient was seen and examined on the medical floor she is more alert and responsive today there is no fever or chills no headache or dizziness no chest pain no shortness of breath no cough no nausea or vomiting no abdominal pain no diarrhea and no urinary symptoms, she is receiving feeding through PEG tube at night, glucose level is elevated again, will increase Lantus dose to 25 units at bedtime, and continue was inserted into sliding scale. Patient is receiving oxygen via nasal cannula at 4 L her pulse ox is 92% patient does not s eem to be in any distress her temperature heart rates respiration rate and blood pressure are in normal range white blood count is 3.8 potassium 4.8 On 01/02/2020 patient was seen and examined on the medical floor she is alert and responsive in no apparent distress. This morning patient had an episode of shortness of breath with decreased O2 sat duration A team was called patient received IV Lasix Sands catheter was inserted chest x-ray was done. Currently patient is doing better pulse ox is 92% on 4 L nasal cannula. On 01/03/2020 patient was seen and examined on the medical floor she is alert responsive in no apparent distress, her pulse ox is 92% on 6 L nasal cannula she is afebrile blood pressure is 123/87 chest x-ray done yesterday reveals left lower lobe infiltrate and right perihilar infiltrates. Without significant improvement from prior x-rays. On 01/04/2020 patient was seen and examined on the medical floor she is more alert and responsive today he denies any pain or discomfort, her pulse ox was lower today and she was switched to a nonrebreather mask On 01/05/2020 patient was seen and examined on the medical floor, she is alert and responsive at this time, she is tolerating tube feeding well, she denied any pain or discomfort. On 01/06/2020 patient was seen and examined on the medical floor, she is alert responsive in no apparent distress she is answering a few questions with yes or no or nodding her head she is tolerating tube feeding well she is denying any pain or discomfort at this time, her temperature is 98.1 blood pressure 135/75 pulse ox 90% on nonrebreather mask. On 01/07/2020 Patient was seen and examined in the ICU. Around 7:00 am this morning patient was on the floor she was having worsening shortness of breath and using accessory muscles she was on nonrebreather mask and her O2 sat duration was 88% Dr. Caba global regulatory affairs manager was contacted patient was transferred to ICU she was intubated sedated and started on mechanical ventilation, she was also started on levophed for blood pressure support. On 01/08/2020 Patient was seen and examined in the ICU. She is intubated sedated maintained on mechanical ventilation, she is still on a small dose of Levophed. She is receiving tube feeding via PEG tube. Her ABG reveals a pH of 7.4 to pCO2 45 by mouth to 59 FiO2 is 70% On 01/09/2020 patient was seen and examined in the ICU she remains intubated sedated maintained on mechanical ventilation, she remains on a small dose of levophed for pressure support. ABG reveals a pH of 7.4 pCO2 47 PO2 77 with FiO2 of 70% her temperature is 90.8 pulse 69 respiration 27 blood pressure 112/70 On 01/10/2020 patient was seen and examined in the ICU she is intubated sedated maintained on mechanical ventilation, temperature is 97.9 pulse 62 respiration 20 blood pressure 121/73 ABG reveals pH of 7.39 pCO2 52 by mouth to 59 FiO2 is 60% no significant change in condition since yesterday patient is receiving tube feeding. She was not seen by critical care yesterday due to personal reasons per nurse. At this time will change consult for pulmonary and critical care to Dr. Perez. Objective - Vital Signs Vital signs: Vital Signs Temp 97.9 F 01/10/20 04:00 Pulse 66 01/10/20 07:00 Resp 20 01/10/20 07:00 BP 108/62 01/10/20 07:00 Pulse Ox 94 L 01/10/20 07:00 Intake & Output 01/09/20 01/10/20 01/10/20 18:59 06:59 18:59 Intake Total 2333.687 1685 125 Output Total 645 1355 200 Balance 1688.687 330 -75 Weight 85 kg 86 kg Intake: IV 1200 1200 100 Sodium Chloride 0.45% 1, 1200 1200 100 000 ml @ 100 mls/hr IV . Q10H [facility] Rx#:[id number] Intake, IV Titration 345.687 100 Amount Norepinephrine 4 mg In 146.258 Sodium Chloride 0.9% 250 ml @ 0.05 MCG/KG/MIN 15. 907 mls/hr IV .[id number] [facility] Rx#:[id number] Piperacillin-Tazobactam 3 100 .375 gm In Sodium Chloride 0.9% 100 ml @ 25 mls/hr IVPB Q8HR [facility] Rx# :[id number] Propofol 1,000 mg In 199.429 Empty Bag 1 bag @ Titrate IV .Q0M [facility] Rx#: [id number] Oral 204 Tube Feeding 554 325 25 Other 30 60 Output: Urine 645 1355 200 Other: Voiding Method Indwelling Catheter Indwelling Catheter - Exam In general patient is intubated sedated maintained on mechanical ventilation HEENT head normocephalic and atraumatic Neck is supple no JVD no goiter no lymphadenopathy Chest exam reveals a few scattered crackles no wheezing Cardiac exam reveals regular heart sounds no gallops no murmurs Abdomen is soft nontender no organomegaly with normal bowel sounds Extremity exam reveals no edema no cyanosis or clubbing - Labs CBC & Chem 7: 01/10/20 05:00 01/10/20 05:00 Labs: Abnormal Lab Results - Last 24 Hours (Table) 01/08/20 01/09/20 01/09/20 Range/Units 05:23 04:09 11:43 Lymphocytes # (1.0-4.8) k/uL D-Dimer (<0.60) mg/L FEU ABG pCO2 (35-45) mmHg ABG pO2 (83-108) mmHg ABG HCO3 (21-25) mmol/L ABG Total CO2 (19-24) mmol/L ABG O2 Saturation (94-97) % Potassium (3.5-5.1) mmol/L Chloride (98-107) mmol/L Carbon Dioxide (22-30) mmol/L Creatinine (0.52-1.04) mg/dL Glucose (74-99) mg/dL POC Glucose (mg/dL) 198 H (75-99) mg/dL Calcium (8.4-10.2) mg/dL Ferritin 514.5 H 449.2 H (10.0-291.0) ng/mL Lactate Dehydrogenase (313-618) U/L Creatine Kinase (30-135) U/L C-Reactive Protein (<10.0) mg/L Total Protein (6.3-8.2) g/dL Albumin (3.5-5.0) g/dL 01/09/20 01/09/20 01/10/20 Range/Units 17:01 20:48 05:00 Lymphocytes # 0.9 L (1.0-4.8) k/uL D-Dimer (<0.60) mg/L FEU ABG pCO2 (35-45) mmHg ABG pO2 (83-108) mmHg ABG HCO3 (21-25) mmol/L ABG Total CO2 (19-24) mmol/L ABG O2 Saturation (94-97) % Potassium (3.5-5.1) mmol/L Chloride (98-107) mmol/L Carbon Dioxide (22-30) mmol/L Creatinine (0.52-1.04) mg/dL Glucose (74-99) mg/dL POC Glucose (mg/dL) 166 H 142 H (75-99) mg/dL Calcium (8.4-10.2) mg/dL Ferritin (10.0-291.0) ng/mL Lactate Dehydrogenase (313-618) U/L Creatine Kinase (30-135) U/L C-Reactive Protein (<10.0) mg/L Total Protein (6.3-8.2) g/dL Albumin (3.5-5.0) g/dL 01/10/20 01/10/20 01/10/20 Range/Units 05:00 05:00 05:54 Lymphocytes # (1.0-4.8) k/uL D-Dimer 1.23 H (<0.60) mg/L FEU ABG pCO2 52 H (35-45) mmHg ABG pO2 59 L* (83-108) mmHg ABG HCO3 31 H (21-25) mmol/L ABG Total CO2 33 H (19-24) mmol/L ABG O2 Saturation 90.2 L (94-97) % Potassium 3.3 L (3.5-5.1) mmol/L Chloride 109 H (98-107) mmol/L Carbon Dioxide 32 H (22-30) mmol/L Creatinine 0.48 L (0.52-1.04) mg/dL Glucose 125 H (74-99) mg/dL POC Glucose (mg/dL) (75-99) mg/dL Calcium 8.2 L (8.4-10.2) mg/dL Ferritin (10.0-291.0) ng/mL Lactate Dehydrogenase 762 H (313-618) U/L Creatine Kinase <20 L (30-135) U/L C-Reactive Protein 39.5 H (<10.0) mg/L Total Protein 5.0 L (6.3-8.2) g/dL Albumin 2.2 L (3.5-5.0) g/dL 01/10/20 Range/Units 06:24 Lymphocytes # (1.0-4.8) k/uL D-Dimer (<0.60) mg/L FEU ABG pCO2 (35-45) mmHg ABG pO2 (83-108) mmHg ABG HCO3 (21-25) mmol/L ABG Total CO2 (19-24) mmol/L ABG O2 Saturation (94-97) % Potassium (3.5-5.1) mmol/L Chloride (98-107) mmol/L Carbon Dioxide (22-30) mmol/L Creatinine (0.52-1.04) mg/dL Glucose (74-99) mg/dL POC Glucose (mg/dL) 120 H (75-99) mg/dL Calcium (8.4-10.2) mg/dL Ferritin (10.0-291.0) ng/mL Lactate Dehydrogenase (313-618) U/L Creatine Kinase (30-135) U/L C-Reactive Protein (<10.0) mg/L Total Protein (6.3-8.2) g/dL Albumin (3.5-5.0) g/dL Microbiology - Last 24 Hours (Table) 01/07/20 06:20 Gram Stain - Final Sputum Sputum Culture - Final Deloris glabrata Corynebacterium striatum Assessment and Plan Plan: #1 pneumonia likely related to COVID 19 viral pneumonitis, followed by pulmonary and infectious disease, condition has worsened over night patient is currently in ICU maintained on mechanical ventilation #2 severe hypernatremia, on admission corrected #3 mental status changes likely related to hypernatremia and metabolic encephalopathy related to infection #4 acute hypoxic respiratory failure related to pneumonia, requiring oxygen at 4 L nasal cannula at this time #5 underlying history of hypertension #6 underlying history of COPD #7 underlying history of insulin-dependent diabetes mellitus millimeters #8 underlying history of stroke with right sided paralysis #9 chronic dysphagia and aspiration requiring PEG tube feeding #10 underlying history of atrial fibrillation maintained on Xarelto #11 vaginal bleeding, at this time will monitor closely, will check daily CBC, and monitor for amount of bleeding. Once her current illness has subsided, will investigate further with pelvic ultrasound and TIERCE FILLER consult. #12 hyperkalemia, corrected At this time patient is into in the intensive care unit, no change in condition since yesterday She is intubated sedated maintained on mechanical ventilation Consultation for pulmonary and infectious disease requested in the emergency room and are following patient's Will follow closely Prognosis is guarded due to multiple underlying comorbid conditions
[2020-01-10] MEDS: PANTOPRAZOLE 40 MG/10 ML VIAL IV SCH (08:59)
[2020-01-10] MEDS: CHOLECALCIFEROL 1,000 UNIT TAB PEG/G-TUBE SCH (09:00)
[2020-01-10] MEDS: FUROSEMIDE 10 MG/ML 2 ML VIAL IV SCH ×2 (09:00→21:54)
[2020-01-10] MEDS: ENOXAPARIN 40 MG/0.4 ML SYRINGE SQ SCH ×2 (09:00→21:54)
[2020-01-10] MEDS: METOPROLOL TARTRATE 25 MG TAB PEG/G-TUBE SCH ×2 (09:00→21:54)
[2020-01-10] MEDS: PIPERACILLIN-TAZOBACTAM 3.375 GM in SODIUM CHLORIDE 0.9% 100 ML IVPB SCH ×3 (09:01→23:36)
[2020-01-10] MEDS: PROPOFOL 1,000 MG in EMPTY BAG 1 BAG IV SCH ×2 (09:01→23:34)
[2020-01-10] MEDS: ZINC SULFATE 220 MG CAP PO SCH (09:02)
[2020-01-10] MEDS: LISINOPRIL 2.5 MG TAB PEG/G-TUBE SCH (09:02)
[2020-01-10] MEDS: CHLORHEXIDINE GLUCONATE 15 ML CUP MUCOUS MEM SCH ×2 (09:02→21:54)
[2020-01-10] MEDS: amLODIPine 10 MG TAB PEG/G-TUBE SCH (09:02)
--- NOTE | 2020-01-10 10:09 | IR ---
EXAMINATION TYPE: IR cvc insert >=5 years DATE OF EXAM: 01/09/2020 COMPARISON: NONE HISTORY: Infection, needs long-term intravenous access for therapy FINDINGS: Maximal barrier technique was utilized. Hand hygiene obtained with soap and water and alco hol-based hand rub. The skin overlying the left basilic vein was localized with ultrasound and noted to be compressible and patent by ultrasound. An ultrasound image was obtained [facility]. Sterile technique utilized with the ultrasound machine. The skin overlying was prepped an d draped and Lidocaine used for local anesthesia. A skin paulino was made with a scalpel. Access was g ained to the vein under direct ultrasound guidance with a 21-gauge needle and a 0.018 inch wire was a dvanced. Access site was dilated with a peel-away sheath and the catheter tailored to length. Nelly ter advanced centrally and a post procedure chest x-ray verified placement with tip in right atrium. Catheter was fixed to the skin and a sterile dressing placed. Hemostasis achieved and the catheter was aspirated and flushed with sterile saline. The patient remained in stable condition. IMPRESSION: STATUS POST ULTRASOUND GUIDED PICC LINE PLACEMENT, READY FOR USE. THIS PROCEDURE WAS PER FORMED BY THE UNDERSIGNED.
[2020-01-10 11:26] LABS: Ferritin 457.7 ng/mL (10.0-291.0)
[2020-01-10 11:47] LABS: Glucose,Whole Blood 114 mg/dL (75-99)
--- NOTE | 2020-01-10 12:28 | P.PN ---
Subjective Progress Note Date: 01/10/20 Principal diagnosis: Acute hypoxic respiratory failure on ventilator COVID 19 pneumonia Aspiration pneumonia likely mixed bacterial and/or or gram-negative related Chronic right-sided weakness dysphagia and aphasia status post PEG tube COPD Insulin-dependent diabetes mellitus uncontrolled Hypertension hypertensive cardiovascular disease Chronic atrial fibrillation on anticoagulation off of his Xeralto, has been initiated on Lovenox twice a day 01/10/2020, patient seen and evaluated examined during the rounds labs reviewed medications reviewed care plan discussed with RN, patient FiO2 has been down to 60% and peak airway pressures are stable, patient remains on assist control mode rate of 20 breathing about 25-28 oxygen saturation 93% she is 10, spontaneous tidal volume on about 400 500 range patient has been getting his spontaneous breathing trial and she is been sedated with propofol drip very small dose of levofed is still going to come patient is on broad-spectrum antibiotics to feed is going on patient is on half normal saline as well chest x-ray shows diffuse infiltrate stable lines 01/08/2020, patient seen and evaluated examined in ICU patient remains on current ventilator with full ventilatory response be clear pressure slightly better than yesterday ranging from 30-32, patient is down to 70% now PEEP of 10 assist control is 20 breathing about 25-26 tidal volume is 400 this morning ABG reviewed ventilation is adequate slight hypoxia was noted but however sats at that time when the gas were done were 91-92% since that time patient has recei adan 20 of Lasix and put out about 550 mL of urine and saturation is improved to 96%, patient is afebrile, patient would need a PICC line tomorrow, remains on propofol dose has been escalated today, tolerating to feed well, sugars are in low 200 range, LDH is 817 C-reactive protein is 25.2 on the they are showing downward trend her plan discussed with the staff at length will increase her Lasix to 20 mg daily will keep patient on 70% and PEEP of 10 and today attempt to titrate oxygen down again tomorrow chest x-ray showed some improved aviation compared to prior study stable ET tube, and seems to tolerating Lasix well any significant compromise in hemodynamic status critical care time spent 35 minutes 01/07/2020, patient does live increase respiratory distress earlier this morning oxygen remains very poor saturation dropped down into 70s to 80s percent, pO2 was only 46 patient was intubated and placed in ICU where patient was seen eval reexamined, patient remains on levo fed drip on 5 mics, her hemodynamic is slightly better systolic blood pressure ranging from 100 210, patient is on propofol 20, vent setting include assist control of 20 tidal volume of 400, PEEP of 10, FiO2 have been lowered down to 90%, ABG and laboratory data data reviewed chest x-ray reviewed mild bilateral interstitial infiltrate consistent with viral pneumonia, patient is being started on Lovenox twice a day continued on tube feed will increase gentle hydration, blood glucose is running slightly high will increase the Levemir, critical care time spent 45 minutes 01/06/2020, patient seen and evaluated examined remains on nonrebreather mask still have problems associated with shortness of breath, care plan discussed with RN will continue current plan of care patient can be started on as needed breathing treatments will continue to gently diurese 01/05/2020, patient seen and evaluated examined remains on nonrebreather mask, nonverbal and noncommunicative essentially no significant change in neurological condition, she remained afebrile with stable hemodynamics her oxygen saturations improved to 96% on repeat nonrebreather mask 01/04/2020, patient laying on the bed on 100% nonrebreather mask and breathing is slightly short of breath, patient is on bronchodilator along with antibiotics, has been on Lasix as well, patient remains on Zosyn, labs reviewed white cell count is normal, labs reviewed, glucose is 342, BUN/creatinine is 25 and 0.7, stool for C. difficile is negative 01/02/2020, patient seen eval examined during the rounds patient has a rapid response this morning with the shortness of breath she however responded well with Lasix, Sands's catheter has been placed, shortness of breath have improved though, on 4 L saturation is 92% low-grade temperature of 99 is present, her chest x-ray assistive of the left lower lobe pneumonia and right perihilar infiltrate prominent lung markings likely fluid overload, Objective - Vital Signs Vital signs: Vital Signs Temp 98.1 F 01/10/20 08:00 Pulse 75 01/10/20 12:00 Resp 31 H 01/10/20 12:00 BP 134/76 01/10/20 12:00 Pulse Ox 93 L 01/10/20 12:00 Intake & Output 01/09/20 01/10/20 01/10/20 18:59 06:59 18:59 Intake Total 2333.687 1785 581.104 Output Total 645 1355 500 Balance 1688.687 430 81.104 Weight 85 kg 86 kg 86 kg Intake: IV 1200 1200 400 Sodium Chloride 0.45% 1, 1200 1200 400 000 ml @ 100 mls/hr IV . Q10H CA[facility]N Rx#:[id number] Intake, IV Titration 345.687 200 26.104 Amount Norepinephrine 4 mg In 146.258 Sodium Chloride 0.9% 250 ml @ 0.05 MCG/KG/MIN 15. 907 mls/hr IV .[id number] [facility] Rx#:[id number] Piperacillin-Tazobactam 3 100 .375 gm In Sodium Chloride 0.9% 100 ml @ 25 mls/hr IVPB Q8HR [facility] Rx# :[id number] Propofol 1,000 mg In 199.429 100 26.104 Empty Bag 1 bag @ Titrate IV .Q0M CA[facility]N Rx#: [id number] Oral 204 Tube Feeding 554 325 125 Other 30 60 30 Output: Urine 645 1355 500 Other: Voiding Method Indwelling Catheter Indwelling Catheter Indwelling Catheter - Exam - Neck Neck: no lymphadenopathy, no stridor - Respiratory Scattered rhonchi throughout, diminished to her left lower lobe. Respirations are symmetrical and nonlabored. - Cardiovascular Regular rhythm and rate. S1 and S2 present, negative for S3, gallop or murmur. Trace edema to her bilateral lower extremities. - Gastrointestinal Abdomen soft and nondistended. Active bowel sounds present in all 4 abdominal quadrants. PEG tube is in place. General gastrointestinal: no organomegaly, no rigid - Integumentary Skin is warm and dry. No clubbing or cyanosis is present. Integumentary: no rash - Neurologic Open eyes with verbal stimuli. - Labs CBC & Chem 7: 01/10/20 05:00 01/10/20 05:00 Labs: Abnormal Lab Results - Last 24 Hours (Table) 01/09/20 01/09/20 01/10/20 Range/Units 17:01 20:48 05:00 Lymphocytes # 0.9 L (1.0-4.8) k/uL D-Dimer (<0.60) mg/L FEU ABG pCO2 (35-45) mmHg ABG pO2 (83-108) mmHg ABG HCO3 (21-25) mmol/L ABG Total CO2 (19-24) mmol/L ABG O2 Saturation (94-97) % Potassium (3.5-5.1) mmol/L Chloride (98-107) mmol/L Carbon Dioxide (22-30) mmol/L Creatinine (0.52-1.04) mg/dL Glucose (74-99) mg/dL POC Glucose (mg/dL) 166 H 142 H (75-99) mg/dL Calcium (8.4-10.2) mg/dL Ferritin (10.0-291.0) ng/mL Lactate Dehydrogenase (313-618) U/L Creatine Kinase (30-135) U/L C-Reactive Protein (<10.0) mg/L Total Protein (6.3-8.2) g/dL Albumin (3.5-5.0) g/dL 01/10/20 01/10/20 01/10/20 Range/Units 05:00 05:00 05:54 Lymphocytes # (1.0-4.8) k/uL D-Dimer 1.23 H (<0.60) mg/L FEU ABG pCO2 52 H (35-45) mmHg ABG pO2 59 L* (83-108) mmHg ABG HCO3 31 H (21-25) mmol/L ABG Total CO2 33 H (19-24) mmol/L ABG O2 Saturation 90.2 L (94-97) % Potassium 3.3 L (3.5-5.1) mmol/L Chloride 109 H (98-107) mmol/L Carbon Dioxide 32 H (22-30) mmol/L Creatinine 0.48 L (0.52-1.04) mg/dL Glucose 125 H (74-99) mg/dL POC Glucose (mg/dL) (75-99) mg/dL Calcium 8.2 L (8.4-10.2) mg/dL Ferritin 457.7 H (10.0-291.0) ng/mL Lactate Dehydrogenase 762 H (313-618) U/L Creatine Kinase <20 L (30-135) U/L C-Reactive Protein 39.5 H (<10.0) mg/L Total Protein 5.0 L (6.3-8.2) g/dL Albumin 2.2 L (3.5-5.0) g/dL 01/10/20 01/10/20 Range/Units 06:24 11:46 Lymphocytes # (1.0-4.8) k/uL D-Dimer (<0.60) mg/L FEU ABG pCO2 (35-45) mmHg ABG pO2 (83-108) mmHg ABG HCO3 (21-25) mmol/L ABG Total CO2 (19-24) mmol/L ABG O2 Saturation (94-97) % Potassium (3.5-5.1) mmol/L Chloride (98-107) mmol/L Carbon Dioxide (22-30) mmol/L Creatinine (0.52-1.04) mg/dL Glucose (74-99) mg/dL POC Glucose (mg/dL) 120 H 114 H (75-99) mg/dL Calcium (8.4-10.2) mg/dL Ferritin (10.0-291.0) ng/mL Lactate Dehydrogenase (313-618) U/L Creatine Kinase (30-135) U/L C-Reactive Protein (<10.0) mg/L Total Protein (6.3-8.2) g/dL Albumin (3.5-5.0) g/dL Microbiology - Last 24 Hours (Table) 01/07/20 06:20 Gram Stain - Final Sputum Sputum Culture - Final Deloris glabrata Corynebacterium striatum Assessment and Plan Assessment: Acute hypoxic respiratory failure on ventilator COVID 19 pneumonia with acute worsening and inflammatory response/cytokine storm compared to yesterday oxygenation stable Ventilator adjustment titrated oxygen down as tolerated if peak airway pressure goes up 35 will initiate pressure control ventilation was keep PEEP of 10 and current vent setting with including oxygen of 50% for Continue spontaneous breathing trial as tolerated Continue gently rehydrate and monitor urine output, we'll continue the Lasix to 20 mg 2 times a day Hypernatremia now improved on half normal saline Aspiration pneumonia likely mixed bacterial and/or or gram-negative related Chronic right-sided weakness dysphagia and aphasia status post PEG tube COPD Insulin-dependent diabetes mellitus uncontrolled Hypertension hypertensive cardiovascular disease Chronic atrial fibrillation on anticoagulation Lovenox Plan: Titrated oxygen down to 50 % further event adjustment as above Suspect slight worsening noted may be related to fluid overload Anticoagulation. Lovenox twice a day We will keep the dose of Levemir due to hyperglycemia him a sugars appears to be improved Continue Levophed titrated down to DC as per fluid resuscitation Continue gentle hydration can decrease the fluids to 50 mL an hour Continue tube feed Ventilator adjustment Continue to check inflammation tree labs for covid19 as needed Monitor sodium levels closely Continue respiratory and contact isolation Time with Patient: Greater than 30
[2020-01-10] MEDS: SODIUM CHLORIDE 0.45% 1,000 ML IV SCH (16:05)
--- NOTE | 2020-01-10 16:17 | PN ---
PROGRESS NOTE DATE OF SERVICE: 01/10/2020 REASON FOR FOLLOWUP: Pneumonia. INTERVAL HISTORY: The patient is currently afebrile. The patient is hemodynamically stable. FiO2 is currently 60%. No significant purulent secretions in the ET or any diarrhea reported by the nursing staff. PHYSICAL EXAMINATION: Blood pressure 134/76, pulse of 75, temperature 98. She is 93% on 60% FiO2. General description is an elderly female intubated on the vent. RESPIRATORY SYSTEM: Unlabored breathing with decreased intensity of breath sounds. No wheeze. HEART: S1, S2. Regular rate and rhythm. ABDOMEN: Soft. No tenderness. LABS: Hemoglobin is 13.1, white count 4.6, BUN of 12, creatinine 0.48. DIAGNOSTIC IMPRESSION AND PLAN: Patient with acute respiratory failure which is multifactorial with concern for possible pneumonia. Patient is currently covered with Zosyn; to continue while monitoring her clinical course closely. Continue with supportive care. MMODL / IJN: [id number] /
[2020-01-10 17:39] LABS: Glucose,Whole Blood 113 mg/dL (75-99)
[2020-01-10] MEDS: FERROUS SULFATE ORAL ELIXIR 300 MG/5 ML CUP PEG/G-TUBE SCH (21:00)
[2020-01-10] MEDS: PRAVASTATIN SODIUM 20 MG TAB PEG/G-TUBE SCH (21:00)
[2020-01-10 21:50] LABS: Glucose,Whole Blood 96 mg/dL (75-99)
[2020-01-10] MEDS: INSULIN DETEMIR (LEVEMIR) 100 UNIT/ML SYR SQ SCH (21:54)
[2020-01-10] MEDS: cloNIDine HCL 0.1 MG TAB PEG/G-TUBE SCH (21:54)
[2020-01-11] MEDS: NOREPINEPHRINE 4 MG in SODIUM CHLORIDE 0.9% 250 ML IV SCH (03:00)
[2020-01-11] MEDS: PROPOFOL 1,000 MG in EMPTY BAG 1 BAG IV SCH ×4 (03:46→17:55)
[2020-01-11 03:51] LABS: Basophils % (A) 1 %; Eosinophils # (A) 0.1 k/uL (0-0.7); Eosinophils % (A) 2 %; HCT 43.3 % (34.0-46.0); HGB 13.9 gm/dL (11.4-16.0); Lymphocytes # (A) 0.9 k/uL (1.0-4.8); Lymphocytes % (A) 16 %; MCH 29.9 pg (25.0-35.0); MCHC 32.1 g/dL (31.0-37.0); MCV 93.2 fL (80.0-100.0); Mean Platelet Volume 10.2; Monocytes # (A) 0.4 k/uL (0-1.0); Monocytes % (A) 6 %; Neutrophils # (A) 4.3 k/uL (1.3-7.7); Neutrophils % (A) 74 %; Platelet Count 179 k/uL (150-450); RBC 4.65 m/uL (3.80-5.40); WBC 5.9 k/uL (3.8-10.6)
[2020-01-11 03:55] LABS: ALT 43 U/L (4-34); AST 58 U/L (14-36); African American GFR (CKD) >90 (>60 ml/min/1.73 sqM); Albumin 2.4 g/dL (3.5-5.0); Alkaline Phosphatase 93 U/L (38-126); Anion Gap 1 mmol/L; Blood Urea Nitrogen 10 mg/dL (7-17); C Reactive Protein 39.2 mg/L (<10.0); Calcium 8.6 mg/dL (8.4-10.2); Carbon Dioxide 36 mmol/L (22-30); Chloride 105 mmol/L (98-107); Creatine Kinase <20 U/L (30-135); Glucose 136 mg/dL (74-99); LDH 926 U/L (313-618); Non-African American GFR(CKD) >90 (>60 ml/min/1.73 sqM); Potassium 3.7 mmol/L (3.5-5.1); Sodium 142 mmol/L (137-145); Total Bilirubin 0.5 mg/dL (0.2-1.3); Total Protein 5.3 g/dL (6.3-8.2)
[2020-01-11 05:18] LABS: ABG Base Excess 12.8 mmol/L; ABG HCO3 37 mmol/L (21-25); ABG Oxygen Saturation 90.8 % (94-97); ABG PCO2 51 mmHg (35-45); ABG PH 7.46 (7.35-7.45); ABG TCO2 38 mmol/L (19-24); Allen Test Performed? Yes
[2020-01-11 05:21] LABS: ABG PO2 58 mmHg (83-108)
[2020-01-11 07:04] LABS: Glucose,Whole Blood 115 mg/dL (75-99)
[2020-01-11] MEDS: INSULIN ASPART (NovoLOG) 100 UNIT/ML VIAL SQ SCH ×4 (07:04→23:56)
[2020-01-11] MEDS: PIPERACILLIN-TAZOBACTAM 3.375 GM in SODIUM CHLORIDE 0.9% 100 ML IVPB SCH ×3 (07:51→22:55)
[2020-01-11] MEDS: methylPREDNISolone SOD SUCCI 40 MG/ML 1 ML VIAL IV SCH ×3 (07:52→22:54)
[2020-01-11] MEDS ORDERED: POTASSIUM BICARBONATE/CIT AC 20 MEQ TABLET.EFF NG-TUBE SCH (08:00)
--- NOTE | 2020-01-11 08:01 | XR ---
EXAMINATION TYPE: XR chest 1V portable DATE OF EXAM: 01/11/2020 COMPARISON: 01/10/2020 HISTORY: Ventilatory dependent respiratory failure. TECHNIQUE: Single frontal view of the chest is obtained. FINDINGS: There is continued worsening of the left midlung opacity and similar bibasilar opacities. Enlarged cardiomediastinal silhouette is again partially obscured. Small left and trace right pleural effusions blunt the costophrenic angles. There is diffuse osseous demineralization and old healed ri ght posterior lateral upper rib fracture. Endotracheal tube and left-sided PICC are similar. Left-darin ed PICC is terminating in the right atrium and could be retracted 5-6 cm for more optimal placement. IMPRESSION: 1. Deep positioning of the left PICC within the right atrium. This could be retracted 5-6 cm for more optimal placement. 2. Worsening left lung airspace disease and stable bibasilar airspace disease with small left pleural effusion and trace right pleural effusion.
[2020-01-11] MEDS: ALBUTEROL HFA INHALER INHALATION SCH ×4 (08:16→19:37)
[2020-01-11] MEDS: CHOLECALCIFEROL 1,000 UNIT TAB PEG/G-TUBE SCH (08:45)
[2020-01-11] MEDS: CHLORHEXIDINE GLUCONATE 15 ML CUP MUCOUS MEM SCH ×3 (08:45→20:16)
[2020-01-11] MEDS: METOPROLOL TARTRATE 25 MG TAB PEG/G-TUBE SCH ×2 (08:45→19:52)
[2020-01-11] MEDS: amLODIPine 10 MG TAB PEG/G-TUBE SCH (08:45)
[2020-01-11] MEDS: LISINOPRIL 2.5 MG TAB PEG/G-TUBE SCH (08:45)
[2020-01-11] MEDS: ENOXAPARIN 40 MG/0.4 ML SYRINGE SQ SCH ×2 (08:45→20:16)
[2020-01-11] MEDS: PANTOPRAZOLE 40 MG/10 ML VIAL IV SCH (08:45)
[2020-01-11] MEDS: FUROSEMIDE 10 MG/ML 2 ML VIAL IV SCH ×2 (08:45→19:54)
[2020-01-11] MEDS: ZINC SULFATE 220 MG CAP PO SCH (08:46)
--- NOTE | 2020-01-11 09:16 | P.PN ---
Subjective Progress Note Date: 01/11/20 Principal diagnosis: Acute hypoxic respiratory failure on ventilator COVID 19 pneumonia Aspiration pneumonia likely mixed bacterial and/or or gram-negative related Chronic right-sided weakness dysphagia and aphasia status post PEG tube COPD Insulin-dependent diabetes mellitus uncontrolled Hypertension hypertensive cardiovascular disease Chronic atrial fibrillation on anticoagulation off of his Xeralto, has been initiated on Lovenox twice a day 01/11/2020, patient seen eval examined during the rounds labs reviewed medications reviewed radiographic studies reviewed as well patient remains sedated with 40 mics of propofol, she'll decrease it to 30 mics off of levo fed drip, patient did start some levo fed last night but now off, noted that FiO2 has been escalated to 100% and PEEP is down to 5, we'll increase PEEP back to 10 and titrated oxygen down as tolerated to bring it down to goal of 70% in next 24 hours slowly will decrease his sedation as well, 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, left-sided slight worsening has been noted with small left-sided pleural effusion likely fluid overload some of the fluid is present on the right side as well patient medications have been reviewed, patient is on Norvasc 10 mg along with Catapres and Ogestrel, patient has been started on IV steroids given hypoxia And a Difficult Reports from [place] That Steroids Have Been Helpful in Improving Oxygenation but at the Cost of Increasing Shedding Time However, Eisenmenger's Slightly Positive Today, Patient Has Received Lasix, ABG Reviewed pH Is 7.46 PCO2 Is 51 PO2 Is 58 That Is on PEEP of 5 and 100% Oxygen, Her LDH Is up to 926 Ferritin C-Reactive Protein and IL6 Levels Are Pending 01/10/2020, patient seen and evaluated examined during the rounds labs reviewed medications reviewed care plan discussed with RN, patient FiO2 has been down to 60% and peak airway pressures are stable, patient remains on assist control mode rate of 20 breathing about 25-28 oxygen saturation 93% she is 10, spontaneous tidal volume on about 400 500 range patient has been getting his spontaneous breathing trial and she is been sedated with propofol drip very small dose of levofed is still going to come patient is on broad-spectrum antibiotics to feed is going on patient is on half normal saline as well chest x-ray shows diffuse infiltrate stable lines 01/08/2020, patient seen and evaluated examined in ICU patient remains on current ventilator with full ventilatory response be clear pressure slightly better than yesterday ranging from 30-32, patient is down to 70% now PEEP of 10 assist control is 20 breathing about 25-26 tidal volume is 400 this morning ABG reviewed ventilation is adequate slight hypoxia was noted but however sats at that time when the gas were done were 91-92% since that time patient has received 20 of Lasix and put out about 550 mL of urine and saturation is improved to 96%, patient is afebrile, patient would need a PICC line tomorrow, remains on propofol dose has been escalated today, tolerating to feed well, sugars are in low 200 range, LDH is 817 C-reactive protein is 25.2 on the they are showing downward trend her plan discussed with the staff at length will increase her Lasix to 20 mg daily will keep patient on 70% and PEEP of 10 and today attempt to titrate oxygen down again tomorrow chest x-ray showed some improved aviation compared to prior study stable ET tube, and seems to tolerating Lasix well any significant compromise in hemodynamic status critical care time spent 35 minutes 01/07/2020, patient does live increase respiratory distress earlier this morning oxygen remains very poor saturation dropped down into 70s to 80s percent, pO2 was only 46 patient was intubated and placed in ICU where patient was seen eval reexamined, patient remains on levo fed drip on 5 mics, her hemodynamic is slightly better systolic blood pressure ranging from 100 210, patient is on propofol 20, vent setting include assist control of 20 tidal volume of 400, PEEP of 10, FiO2 have been lowered down to 90%, ABG and laboratory data data reviewed chest x-ray reviewed mild bilateral interstitial infiltrate consistent with viral pneumonia, patient is being started on Lovenox twice a day continued on tube feed will increase gentle hydration, blood glucose is running slightly high will increase the Levemir, critical care time spent 45 minutes 01/06/2020, patient seen and evaluated examined remains on nonrebreather mask still have problems associated with shortness of breath, care plan discussed with RN will continue current plan of care patient can be started on as needed breathing treatments will continue to gently diurese 01/05/2020, patient seen and evaluated examined remains on nonrebreather mask, nonverbal and noncommunicative essentially no significant change in neurological condition, she remained afebrile with stable hemodynamics her oxygen saturations improved to 96% on repeat nonrebreather mask 01/04/2020, patient laying on the bed on 100% nonrebreather mask and breathing is slightly short of breath, patient is on bronchodilator along with antibiotics, has been on Lasix as well, patient remains on Zosyn, labs reviewed white cell count is normal, labs reviewed, glucose is 342, BUN/creatinine is 25 and 0.7, stool for C. difficile is negative 01/02/2020, patient seen eval examined during the rounds patient has a rapid response this morning with the shortness of breath she however responded well w ith Lasix, Sands's catheter has been placed, shortness of breath have improved though, on 4 L saturation is 92% low-grade temperature of 99 is present, her chest x-ray assistive of the left lower lobe pneumonia and right perihilar infiltrate prominent lung markings likely fluid overload, Objective - Vital Signs Vital signs: Vital Signs Temp 96.4 F L 01/11/20 08:00 Pulse 74 01/11/20 08:00 Resp 20 01/11/20 08:00 BP 99/56 01/11/20 08:00 Pulse Ox 93 L 01/11/20 08:00 Intake & Output 01/10/20 01/11/20 01/11/20 18:59 06:59 18:59 Intake Total 4902.109 0893.528 263.475 Output Total 2550 1405 140 Balance -1255.676 -39.472 123.475 Weight 86 kg 86.9 kg Intake: IV 780 470 Sodium Chloride 0.45% 1, 780 470 000 ml @ 100 mls/hr IV . Q10H [facility] Rx#:[id number] Intake, IV Titration 49.324 380.528 202.475 Amount Norepinephrine 4 mg In 254 12.777 Sodium Chloride 0.9% 250 ml @ 0.05 MCG/KG/MIN 15. 907 mls/hr IV .[id number] [facility] Rx#:[id number] Piperacillin-Tazobactam 3 100 .375 gm In Sodium Chloride 0.9% 100 ml @ 25 mls/hr IVPB Q8HR [facility] Rx# :[id number] Propofol 1,000 mg In 49.324 126.528 89.698 Empty Bag 1 bag @ Titrate IV .Q0M [facility] Rx#: [id number] Tube Feeding 375 515 31 Other 90 30 Output: Urine 2550 1405 140 Other: Voiding Method Indwelling Catheter Indwelling Catheter - Exam - Neck Neck: no lymphadenopathy, no stridor - Respiratory Scattered rhonchi throughout, diminished to her left lower lobe. , Positive bilateral crackles Respirations are symmetrical and nonlabored. - Cardiovascular Regular rhythm and rate. S1 and S2 present, negative for S3, gallop or murmur. Trace edema to her bilateral lower extremities. - Gastrointestinal Abdomen soft and nondistended. Active bowel sounds present in all 4 abdominal quadrants. PEG tube is in place. General gastrointestinal: no organomegaly, no rigid - Integumentary Skin is warm and dry. No clubbing or cyanosis is present. Integumentary: no rash - Neurologic Sedated with propofol drip - Labs CBC & Chem 7: 01/11/20 03:21 01/11/20 03:21 Labs: Abnormal Lab Results - Last 24 Hours (Table) 01/10/20 01/10/20 01/10/20 Range/Units 05:00 11:46 17:37 Lymphocytes # (1.0-4.8) k/uL ABG pH (7.35-7.45) ABG pCO2 (35-45) mmHg ABG pO2 (83-108) mmHg ABG HCO3 (21-25) mmol/L ABG Total CO2 (19-24) mmol/L ABG O2 Saturation (94-97) % Carbon Dioxide (22-30) mmol/L Creatinine (0.52-1.04) mg/dL Glucose (74-99) mg/dL POC Glucose (mg/dL) 114 H 113 H (75-99) mg/dL Ferritin 457.7 H (10.0-291.0) ng/mL AST (14-36) U/L ALT (4-34) U/L Lactate Dehydrogenase (313-618) U/L Creatine Kinase (30-135) U/L C-Reactive Protein (<10.0) mg/L Total Protein (6.3-8.2) g/dL Albumin (3.5-5.0) g/dL 01/11/20 01/11/20 01/11/20 Range/Units 03:21 03:21 05:09 Lymphocytes # 0.9 L (1.0-4.8) k/uL ABG pH 7.46 H (7.35-7.45) ABG pCO2 51 H (35-45) mmHg ABG pO2 58 L* (83-108) mmHg ABG HCO3 37 H (21-25) mmol/L ABG Total CO2 38 H (19-24) mmol/L ABG O2 Saturation 90.8 L (94-97) % Carbon Dioxide 36 H (22-30) mmol/L Creatinine 0.50 L (0.52-1.04) mg/dL Glucose 136 H (74-99) mg/dL POC Glucose (mg/dL) (75-99) mg/dL Ferritin (10.0-291.0) ng/mL AST 58 H (14-36) U/L ALT 43 H (4-34) U/L Lactate Dehydrogenase 926 H (313-618) U/L Creatine Kinase <20 L (30-135) U/L C-Reactive Protein 39.2 H (<10.0) mg/L Total Protein 5.3 L (6.3-8.2) g/dL Albumin 2.4 L (3.5-5.0) g/dL 01/11/20 Range/Units 07:03 Lymphocytes # (1.0-4.8) k/uL ABG pH (7.35-7.45) ABG pCO2 (35-45) mmHg ABG pO2 (83-108) mmHg ABG HCO3 (21-25) mmol/L ABG Total CO2 (19-24) mmol/L ABG O2 Saturation (94-97) % Carbon Dioxide (22-30) mmol/L Creatinine (0.52-1.04) mg/dL Glucose (74-99) mg/dL POC Glucose (mg/dL) 115 H (75-99) mg/dL Ferritin (10.0-291.0) ng/mL AST (14-36) U/L ALT (4-34) U/L Lactate Dehydrogenase (313-618) U/L Creatine Kinase (30-135) U/L C-Reactive Protein (<10.0) mg/L Total Protein (6.3-8.2) g/dL Albumin (3.5-5.0) g/dL Assessment and Plan Assessment: Acute hypoxic respiratory failure on ventilator COVID 19 pneumonia with acute worsening which may very well be related to fluid overload Ventilator adjustment now patient is on 100% oxygen but will be titrated oxygen down as tolerated, her peak airway pressures are stable 25, will titrate oxygen to 70% in next 24 hours and also increase PEEP and maintain PEEP to 10 Continue spontaneous breathing trial as tolerated Continue I's and TOWARDS negative side monitor urine output, we'll continue the Lasix to 20 mg 2 times a day Aspiration pneumonia likely mixed bacterial and/or or gram-negative related Chronic right-sided weakness dysphagia and aphasia status post PEG tube COPD Insulin-dependent diabetes mellitus uncontrolled Hypertension hypertensive cardiovascular disease, will decrease Norvasc to 5 mg Chronic atrial fibrillation on anticoagulation Lovenox Plan: Titrated oxygen down as as tolerated with high PEEP Anticoagulation. Lovenox twice a day Decrease Norvasc to 5 mg We will keep the dose of Levemir due to hyperglycemia him a sugars appears to be improved, patient has been tolerating tube feed well Observe off of levo fed Continue tube feed Ventilator adjustment Continue to check inflammation tree labs for covid19 as needed Monitor sodium levels closely Continue respiratory and contact isolation Time with Patient: Greater than 30
[2020-01-11 11:33] LABS: Ferritin 477.8 ng/mL (10.0-291.0)
[2020-01-11 11:42] LABS: Glucose,Whole Blood 142 mg/dL (75-99)
--- NOTE | 2020-01-11 17:25 | PN ---
PROGRESS NOTE DATE OF SERVICE: 01/11/2020 REASON FOR FOLLOWUP: Pneumonia. INTERVAL HISTORY: The patient is currently afebrile. The patient is hemodynamically stable, off pressor support. FiO2 is currently stable and tolerating tube feeds. No diarrhea has been reported. PHYSICAL EXAMINATION: On examination, her blood pressure is 110/63 with a pulse of 58, temperature 97.1. She is 92% on 80% FiO2. General description is an elderly female, intubated on the vent. RESPIRATORY SYSTEM: Unlabored breathing. Decreased breath sounds at the bases. No wheeze. HEART: S1, S2. Regular rate and rhythm. ABDOMEN: Soft, no distention. LABS: Hemoglobin 13.8, white count of 5.9. BUN of 10, creatinine 0.59. DIAGNOSTIC IMPRESSION AND PLAN: Patient with acute respiratory failure which did have a pneumonia, subsequent respiratory distress and intubation with concern for possible aspiration. Patient on Zosyn to continue and monitor clinical course closely. Overall prognosis remains to be guarded. MMODL / IJN: [id number] / MTDD
[2020-01-11 17:59] LABS: Glucose,Whole Blood 267 mg/dL (75-99)
[2020-01-11] MEDS: PRAVASTATIN SODIUM 20 MG TAB PEG/G-TUBE SCH (19:50)
[2020-01-11] MEDS: FERROUS SULFATE ORAL ELIXIR 300 MG/5 ML CUP PEG/G-TUBE SCH (19:50)
[2020-01-11] MEDS: cloNIDine HCL 0.1 MG TAB PEG/G-TUBE SCH ×2 (19:51→22:11)
[2020-01-11] MEDS: INSULIN DETEMIR (LEVEMIR) 100 UNIT/ML SYR SQ SCH (19:52)
[2020-01-11 23:48] LABS: Glucose,Whole Blood 290 mg/dL (75-99)
[2020-01-12] MEDS: PROPOFOL 1,000 MG in EMPTY BAG 1 BAG IV SCH ×5 (00:48→22:17)
[2020-01-12 05:09] LABS: ABG Base Excess 13.2 mmol/L; ABG HCO3 37 mmol/L (21-25); ABG Oxygen Saturation 91.7 % (94-97); ABG PCO2 52 mmHg (35-45); ABG PH 7.46 (7.35-7.45); ABG PO2 62 mmHg (83-108); ABG TCO2 39 mmol/L (19-24); Allen Test Performed? Yes
[2020-01-12 06:18] LABS: Glucose,Whole Blood 261 mg/dL (75-99)
[2020-01-12] MEDS: INSULIN ASPART (NovoLOG) 100 UNIT/ML VIAL SQ SCH ×4 (06:20→23:59)
--- NOTE | 2020-01-12 07:15 | XR ---
EXAMINATION TYPE: XR chest 1V portable DATE OF EXAM: 01/12/2020 CLINICAL HISTORY: Difficulty breathing progress study. TECHNIQUE: Single AP portable upright view of the chest is obtained. COMPARISON: Chest x-ray from one day earlier and older studies. CT chest July 23, 2017. FINDINGS: Stable endotracheal tube. Suspect slight interval retraction of left-sided PICC line now t erminating SVC. Persistent background chronic parenchymal change with bilateral mid to lower lung [place] silhouetting both diaphragms. Stable mild cardiomegaly with atherosclerotic thoracic aorta. Ol d posterior lateral right fourth and fifth rib fractures redemonstrated. IMPRESSION: Chronic emphysematous changes with persistent bilateral mid to lower lung infiltrates and /or atelectasis stable or slightly improved from most recent x-ray.
[2020-01-12] MEDS: NOREPINEPHRINE 4 MG in SODIUM CHLORIDE 0.9% 250 ML IV SCH ×2 (08:00→14:35)
[2020-01-12] MEDS: methylPREDNISolone SOD SUCCI 40 MG/ML 1 ML VIAL IV SCH ×2 (08:01→20:14)
[2020-01-12] MEDS: PIPERACILLIN-TAZOBACTAM 3.375 GM in SODIUM CHLORIDE 0.9% 100 ML IVPB SCH ×2 (08:01→15:46)
[2020-01-12] MEDS: ALBUTEROL HFA INHALER INHALATION SCH ×4 (08:05→19:58)
[2020-01-12 08:15] LABS: ALT 78 U/L (4-34); AST 77 U/L (14-36); African American GFR (CKD) >90 (>60 ml/min/1.73 sqM); Albumin 2.6 g/dL (3.5-5.0); Alkaline Phosphatase 91 U/L (38-126); Anion Gap 3 mmol/L; Blood Urea Nitrogen 20 mg/dL (7-17); Carbon Dioxide 38 mmol/L (22-30); Chloride 102 mmol/L (98-107); Glucose 275 mg/dL (74-99); Non-African American GFR(CKD) 84 (>60 ml/min/1.73 sqM); Potassium 3.9 mmol/L (3.5-5.1); Sodium 143 mmol/L (137-145); Total Bilirubin 0.4 mg/dL (0.2-1.3); Total Protein 5.6 g/dL (6.3-8.2)
[2020-01-12 08:18] LABS: Basophils # (A) 0.1 k/uL (0-0.2); Basophils % (A) 1 %; Eosinophils % (A) 0 %; HCT 41.3 % (34.0-46.0); HGB 13.4 gm/dL (11.4-16.0); Lymphocytes # (A) 0.8 k/uL (1.0-4.8); Lymphocytes % (A) 14 %; MCH 30.5 pg (25.0-35.0); MCHC 32.5 g/dL (31.0-37.0); MCV 93.8 fL (80.0-100.0); Mean Platelet Volume 11.1; Monocytes # (A) 0.3 k/uL (0-1.0); Monocytes % (A) 6 %; Neutrophils # (A) 4.4 k/uL (1.3-7.7); Neutrophils % (A) 78 %; Platelet Count 175 k/uL (150-450); RBC 4.41 m/uL (3.80-5.40); WBC 5.7 k/uL (3.8-10.6)
[2020-01-12] MEDS: CHOLECALCIFEROL 1,000 UNIT TAB PEG/G-TUBE SCH (09:13)
[2020-01-12] MEDS: CHLORHEXIDINE GLUCONATE 15 ML CUP MUCOUS MEM SCH ×2 (09:13→20:14)
[2020-01-12] MEDS: amLODIPine 5 MG TAB PO SCH (09:13)
[2020-01-12] MEDS: FUROSEMIDE 10 MG/ML 2 ML VIAL IV SCH ×2 (09:13→20:13)
[2020-01-12] MEDS: ENOXAPARIN 40 MG/0.4 ML SYRINGE SQ SCH ×2 (09:13→20:12)
[2020-01-12] MEDS: METOPROLOL TARTRATE 25 MG TAB PEG/G-TUBE SCH ×2 (09:14→20:13)
[2020-01-12] MEDS: ZINC SULFATE 220 MG CAP PO SCH (09:14)
[2020-01-12] MEDS: PANTOPRAZOLE 40 MG/10 ML VIAL IV SCH (09:14)
[2020-01-12] MEDS: LISINOPRIL 2.5 MG TAB PEG/G-TUBE SCH (09:14)
--- NOTE | 2020-01-12 09:43 | P.PN ---
Subjective Progress Note Date: 01/12/20 Principal diagnosis: Acute hypoxic respiratory failure on ventilator COVID 19 pneumonia Aspiration pneumonia likely mixed bacterial and/or or gram-negative related Chronic right-sided weakness dysphagia and aphasia status post PEG tube COPD Insulin-dependent diabetes mellitus uncontrolled Hypertension hypertensive cardiovascular disease Chronic atrial fibrillation on anticoagulation off of his Xeralto, has been initiated on Lovenox twice a day 01/12/2020, patient seen and evaluated today care plan discussed with the nurse at length radiographic studies and lab studies reviewed, patient remains on assist control mode rate of 20 breathing about 24 26th of patient remains at PEEP of 10 FiO2 of 80% oxygen saturation are 90-94% within increase the PEEP to 15 as blood pressure is stable and titrated oxygen down to 70-60% next 24 hours chest x-ray reviewed continued to show same pattern but overall condition appears to improve to feed as tolerated very well, CBC is normal arterial blood gases history of hypercapnic hypoxic respiratory failure, bicarb is slightly g oing up the patient seems to be tolerating steroid well however sugars are higher side remains on insulin 01/11/2020, patient seen eval examined during the rounds labs reviewed medications reviewed radiographic studies reviewed as well patient remains sedated with 40 mics of propofol, she'll decrease it to 30 mics off of levo fed drip, patient did start some levo fed last night but now off, noted that FiO2 has been escalated to 100% and PEEP is down to 5, we'll increase PEEP back to 10 and titrated oxygen down as tolerated to bring it down to goal of 70% in next 24 hours slowly will decrease his sedation as well, 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, left-sided slight worsening has been noted with small left- sided pleural effusion likely fluid overload some of the fluid is present on the right side as well patient medications have been reviewed, patient is on Norvasc 10 mg along with Catapres and Ogestrel, patient has been started on IV steroids given hypoxia And a Difficult Reports from [facility] That Steroids Have Been Helpful in Improving Oxygenation but at the Cost of Increasing Shedding Time However, Terence's Slightly Positive Today, Patient Has Received Lasix, ABG Reviewed pH Is 7.46 PCO2 Is 51 PO2 Is 58 That Is on PEEP of 5 and 100% Oxygen, Her LDH Is up to 926 Ferritin C-Reactive Protein and IL6 Levels Are Pending 01/10/2020, patient seen and evaluated examined during the rounds labs reviewed medications reviewed care plan discussed with RN, patient FiO2 has been down to 60% and peak airway pressures are stable, patient remains on assist control mode rate of 20 breathing about 25-28 oxygen saturation 93% she is 10, spontaneous tidal volume on about 400 500 range patient has been getting his spontaneous breathing trial and she is been sedated with propofol drip very small dose of levofed is still going to come patient is on broad-spectrum antibiotics to feed is going on patient is on half normal saline as well chest x-ray shows diffuse infiltrate stable lines 01/08/2020, patient seen and evaluated examined in ICU patient remains on current ventilator with full ventilatory response be clear pressure slightly better than yesterday ranging from 30-32, patient is down to 70% now PEEP of 10 assist control is 20 breathing about 25-26 tidal volume is 400 this morning ABG reviewed ventilation is adequate slight hypoxia was noted but however sats at that time when the gas were done were 91-92% since that time patient has received 20 of Lasix and put out about 550 mL of urine and saturation is improved to 96%, patient is afebrile, patient would need a PICC line tomorrow, remains on propofol dose has been escalated today, tolerating to feed well, sugars are in low 200 range, LDH is 817 C-reactive protein is 25.2 on the they are showing downward trend her plan discussed with the staff at length will increase her Lasix to 20 mg daily will keep patient on 70% and PEEP of 10 and today attempt to titrate oxygen down again tomorrow chest x-ray showed some improved aviation compared to prior study stable ET tube, and seems to tolerating Lasix well any significant compromise in hemodynamic status critical care time spent 35 minutes 01/07/2020, patient does live increase respiratory distress earlier this morning oxygen remains very poor saturation dropped down into 70s to 80s percent, pO2 was only 46 patient was intubated and placed in ICU where patient was seen eval reexamined, patient remains on levo fed drip on 5 mics, her hemodynamic is slightly better systolic blood pressure ranging from 100 210, patient is on propofol 20, vent setting include assist control of 20 tidal volume of 400, PEEP of 10, FiO2 have been lowered down to 90%, ABG and laboratory data data reviewed chest x-ray reviewed mild bilateral interstitial infiltrate consistent with viral pneumonia, patient is being started on Lovenox twice a day continued on tube feed will increase gentle hydration, blood glucose is running slightly high will increase the Levemir, critical care time spent 45 minutes 01/06/2020, patient seen and evaluated examined remains on nonrebreather mask still have problems associated with shortness of breath, care plan discussed with RN will continue current plan of care patient can be started on as needed breathing treatments will continue to gently diurese 01/05/2020, patient seen and evaluated examined remains on nonrebreather mask, nonverbal and noncommunicative essentially no significant change in neurological condition, she remained afebrile with stable hemodynamics her oxygen saturations improved to 96% on repeat nonrebreather mask 01/04/2020, patient laying on the bed on 100% nonrebreather mask and breathing is slightly short of breath, patient is on bronchodilator along with antibiotics, has been on Lasix as well, patient remains on Zosyn, labs reviewed white cell count is normal, labs reviewed, glucose is 342, BUN/creatinine is 25 and 0.7, stool for C. difficile is negative 01/02/2020, patient seen eval examined during the rounds patient has a rapid response this morning with the shortness of breath she however responded well with Lasix, Sands's catheter has been placed, shortness of breath have improved though, on 4 L saturation is 92% low-grade temperature of 99 is present, her chest x-ray assistive of the left lower lobe pneumonia and right perihilar infiltrate prominent lung markings likely fluid overload, Objective - Vital Signs Vital signs: Vital Signs Temp 98.2 F 01/12/20 04:00 Pulse 78 01/12/20 07:00 Resp 25 H 01/12/20 07:00 BP 130/74 01/12/20 07:00 Pulse Ox 91 L 01/12/20 07:00 Intake & Output 01/11/20 01/12/20 01/12/20 18:59 06:59 18:59 Intake Total 935.370 913.884 Output Total 970 1320 Balance -34.630 -406.116 Weight 86.9 kg 85.2 kg Intake: IV 110 NS 110 Intake, IV Titration 464.370 277.884 Amount Norepinephrine 4 mg In 12.777 Sodium Chloride 0.9% 250 ml @ 0.05 MCG/KG/MIN 15. 907 mls/hr IV .[id number] [facility] Rx#:[id number] Piperacillin-Tazobactam 3 200 100 .375 gm In Sodium Chloride 0.9% 100 ml @ 25 mls/hr IVPB Q8HR [facility] Rx# :[id number] Propofol 1,000 mg In 251.593 177.884 Empty Bag 1 bag @ Titrate IV .Q0M [facility] Rx#: [id number] Tube Feeding 341 496 Other 130 30 Output: Urine 970 1320 Other: Voiding Method Indwelling Catheter Indwelling Catheter # Voids 1 - Exam - Neck Neck: no lymphadenopathy, no stridor - Respiratory Scattered rhonchi throughout, full ventilator support - Cardiovascular Regular rhythm and rate. S1 and S2 present, negative for S3, gallop or murmur. Trace edema to her bilateral lower extremities. - Gastrointestinal Abdomen soft and nondistended. - Integumentary Skin is warm and dry. No clubbing or cyanosis is present. Integumentary: no rash - Neurologic Sedated with propofol drip - Labs CBC & Chem 7: 01/12/20 07:10 01/12/20 07:45 Labs: Abnormal Lab Results - Last 24 Hours (Table) 01/11/20 01/11/20 01/11/20 Range/Units 03:21 11:41 17:58 Lymphocytes # (1.0-4.8) k/uL ABG pH (7.35-7.45) ABG pCO2 (35-45) mmHg ABG pO2 (83-108) mmHg ABG HCO3 (21-25) mmol/L ABG Total CO2 (19-24) mmol/L ABG O2 Saturation (94-97) % Carbon Dioxide (22-30) mmol/L BUN (7-17) mg/dL Glucose (74-99) mg/dL POC Glucose (mg/dL) 142 H 267 H (75-99) mg/dL Ferritin 477.8 H (10.0-291.0) ng/mL AST (14-36) U/L ALT (4-34) U/L Lactate Dehydrogenase (313-618) U/L Creatine Kinase (30-135) U/L C-Reactive Protein (<10.0) mg/L Total Protein (6.3-8.2) g/dL Albumin (3.5-5.0) g/dL 01/11/20 01/12/20 01/12/20 Range/Units 23:46 05:07 05:22 Lymphocytes # (1.0-4.8) k/uL ABG pH 7.46 H (7.35-7.45) ABG pCO2 52 H (35-45) mmHg ABG pO2 62 L (83-108) mmHg ABG HCO3 37 H (21-25) mmol/L ABG Total CO2 39 H (19-24) mmol/L ABG O2 Saturation 91.7 L (94-97) % Carbon Dioxide (22-30) mmol/L BUN (7-17) mg/dL Glucose (74-99) mg/dL POC Glucose (mg/dL) 290 H (75-99) mg/dL Ferritin (10.0-291.0) ng/mL AST (14-36) U/L ALT (4-34) U/L Lactate Dehydrogenase 764 H (313-618) U/L Creatine Kinase 24 L (30-135) U/L C-Reactive Protein 26.0 H (<10.0) mg/L Total Protein (6.3-8.2) g/dL Albumin (3.5-5.0) g/dL 01/12/20 01/12/20 01/12/20 Range/Units 06:17 07:10 07:45 Lymphocytes # 0.8 L (1.0-4.8) k/uL ABG pH (7.35-7.45) ABG pCO2 (35-45) mmHg ABG pO2 (83-108) mmHg ABG HCO3 (21-25) mmol/L ABG Total CO2 (19-24) mmol/L ABG O2 Saturation (94-97) % Carbon Dioxide 38 H (22-30) mmol/L BUN 20 H (7-17) mg/dL Glucose 275 H (74-99) mg/dL POC Glucose (mg/dL) 261 H (75-99) mg/dL Ferritin (10.0-291.0) ng/mL AST 77 H (14-36) U/L ALT 78 H (4-34) U/L Lactate Dehydrogenase (313-618) U/L Creatine Kinase (30-135) U/L C-Reactive Protein (<10.0) mg/L Total Protein 5.6 L (6.3-8.2) g/dL Albumin 2.6 L (3.5-5.0) g/dL Assessment and Plan Assessment: Acute hypoxic respiratory failure on ventilator COVID 19 pneumonia with acute worsening Ventilator adjustment now patient is on 80 % oxygen but will be titrated oxygen down as tolerated, her peak airway pressures are stable low 20s , will titrate oxygen to 60 % in next 24 hours and also increase PEEP to 15 Continue I's and TOWARDS negative side monitor urine output, we'll continue the Lasix to 20 mg 2 times a day Patient is getting trial off steroids seems to be tolerating well thus hyperglycemia is some improvement in chest x-ray, there is some anecdotal reports coming from [facility] it helps oxygenation however with the cost of prolonged shedding of viral particles we'll decrease it to 2 times a day Aspiration pneumonia likely mixed bacterial and/or or gram-negative related Chronic right-sided weakness dysphagia and aphasia status post PEG tube COPD Insulin-dependent diabetes mellitus uncontrolled Hypertension hypertensive cardiovascular disease, will decrease Norvasc to 5 mg Chronic atrial fibrillation on anticoagulation Lovenox Critical care time 35 minutes Plan: Titrated oxygen down as as tolerated with high PEEP Anticoagulation. Lovenox twice a day Continue Norvasc to 5 mg We will keep the dose of Levemir due to hyperglycemia him a sugars appears to be steroid related, patient has been tolerating tube feed well Observe off of levo fed Continue tube feed Ventilator adjustment Continue to check inflammation tree labs for covid19 as needed Monitor sodium levels closely Continue respiratory and contact isolation Time with Patient: Greater than 30
[2020-01-12 11:28] LABS: Glucose,Whole Blood 259 mg/dL (75-99)
--- NOTE | 2020-01-12 16:41 | P.PN ---
Subjective Progress Note Date: 01/12/20 Soledad Enriquez, is an 79-year-old female who resides at a shelter at this time will was noticed to have worsening mental status and persistent cough, patient started having elevated temperature up to 101 at that point she was sent to [facility] emergency room she had testing for influenza A and B which were negative she also had an instant test for Covid 19 which was positive she was admitted to telemetry floor she was started on IV Zithromax pulmonary and infectious disease consultation were requested. Patient also had evidence of dehydration with hypernatremia elevated sodium level at 151. Patient has a known history of multiple medical problems including history of stroke with right sided paralysis, history of aspiration patient has a PEG tube for feeding, history of insulin-dependent diabetes mellitus, history of hypertension, history of hyperlipidemia, and history of paroxysmal atrial fibrillation. On presentation patient had a temperature of 101 pulse of 82 respiration 18 blood pressure 119/63 and pulse ox of 91% on 4 L nasal cannula. White blood count was 4.8 chest x-ray revealed evidence of left basilar opacity. On 12/30/2019 patient was seen and examined on the medical floor she is somnolent responsive in no apparent distress there is low-grade fever temperature is 100.8 there is no chills no headache or dizziness no chest pain no shortness of breath no cough no nausea or vomiting no abdominal pain no diarrhea and no burning was urination. Nurse noticed some vaginal bleeding, hemoglobin is stable at 15. Pulse ox is 96% on 4 L nasal cannula , On 12/31/2019 patient was seen and examined on the medical floor she is somnolent responsive in no apparent distress, her fever is subsiding temperatures this morning 99 pulse ox is 92% on 4 L nasal cannula, patient is denying any complaints at this time however, she does not seem to be listening much to the questions, and she goes back to sleep fast. White blood count today is normal at 4.1 hemoglobin is 15.2 potassium is elevated at 5.8 On 01/01/2020 patient was seen and examined on the medical floor she is more alert and responsive today there is no fever or chills no headache or dizziness no chest pain no shortness of breath no cough no nausea or vomiting no abdominal pain no diarrhea and no urinary symptoms, she is receiving feeding through PEG tube at night, glucose level is elevated again, will increase Lantus dose to 25 units at bedtime, and continue was inserted into sliding scale. Patient is receiving oxygen via nasal cannula at 4 L her pulse ox is 92% patient does not s eem to be in any distress her temperature heart rates respiration rate and blood pressure are in normal range white blood count is 3.8 potassium 4.8 On 01/02/2020 patient was seen and examined on the medical floor she is alert and responsive in no apparent distress. This morning patient had an episode of shortness of breath with decreased O2 sat duration A team was called patient received IV Lasix Sands catheter was inserted chest x-ray was done. Currently patient is doing better pulse ox is 92% on 4 L nasal cannula. On 01/03/2020 patient was seen and examined on the medical floor she is alert responsive in no apparent distress, her pulse ox is 92% on 6 L nasal cannula she is afebrile blood pressure is 123/87 chest x-ray done yesterday reveals left lower lobe infiltrate and right perihilar infiltrates. Without significant improvement from prior x-rays. On 01/04/2020 patient was seen and examined on the medical floor she is more alert and responsive today he denies any pain or discomfort, her pulse ox was lower today and she was switched to a nonrebreather mask On 01/05/2020 patient was seen and examined on the medical floor, she is alert and responsive at this time, she is tolerating tube feeding well, she denied any pain or discomfort. On 01/06/2020 patient was seen and examined on the medical floor, she is alert responsive in no apparent distress she is answering a few questions with yes or no or nodding her head she is tolerating tube feeding well she is denying any pain or discomfort at this time, her temperature is 98.1 blood pressure 135/75 pulse ox 90% on nonrebreather mask. On 01/07/2020 Patient was seen and examined in the ICU. Around 7:00 am this morning patient was on the floor she was having worsening shortness of breath and using accessory muscles she was on nonrebreather mask and her O2 sat duration was 88% Dr. Caba security threat analyst was contacted patient was transferred to ICU she was intubated sedated and started on mechanical ventilation, she was also started on levophed for blood pressure support. On 01/08/2020 Patient was seen and examined in the ICU. She is intubated sedated maintained on mechanical ventilation, she is still on a small dose of Levophed. She is receiving tube feeding via PEG tube. Her ABG reveals a pH of 7.4 to pCO2 45 by mouth to 59 FiO2 is 70% On 01/09/2020 patient was seen and examined in the ICU she remains intubated sedated maintained on mechanical ventilation, she remains on a small dose of levophed for pressure support. ABG reveals a pH of 7.4 pCO2 47 PO2 77 with FiO2 of 70% her temperature is 90.8 pulse 69 respiration 27 blood pressure 112/70 On 01/10/2020 patient was seen and examined in the ICU she is intubated sedated maintained on mechanical ventilation, temperature is 97.9 pulse 62 respiration 20 blood pressure 121/73 ABG reveals pH of 7.39 pCO2 52 by mouth to 59 FiO2 is 60% no significant change in condition since yesterday patient is receiving tube feeding. She was not seen by critical care yesterday due to personal reasons per nurse. At this time will change consult for pulmonary and critical care to Dr. Perez. On 01/11/2020 Patient was seen and examined in the ICU she is intubated, sedated, maintained on mechanical ventilation. She is not on any vasopressors at this time. there is no fever or chills, ABG reveals PH 7.46 PCO2 51 PO2 58 with FIO2 of 100% On 01/12/2020 Patient was seen and examined in the ICU. she is intubated, sedated maintained on mechanial ventilation. ABG today revals PH 7.46 PCO2 52 PO2 62 FIO@ of 80% Patient is not on any vasopressors she is receiving tube feeding and is tolerating well. Objective - Vital Signs Vital signs: Vital Signs Temp 98 F 01/12/20 12:00 Pulse 60 01/12/20 14:00 Resp 20 01/12/20 14:00 BP 99/71 01/12/20 14:00 Pulse Ox 99 01/12/20 14:00 Intake & Output 01/11/20 01/12/20 01/12/20 18:59 06:59 18:59 Intake Total 935.370 913.884 597 Output Total 970 1320 695 Balance -34.630 -406.116 -98 Weight 86.9 kg 85.2 kg 85.2 kg Intake: IV 110 70 NS 110 70 Intake, IV Titration 464.370 277.884 200 Amount Norepinephrine 4 mg In 12.777 Sodium Chloride 0.9% 250 ml @ 0.05 MCG/KG/MIN 15. 907 mls/hr IV .[id number] [facility] Rx#:[id number] Piperacillin-Tazobactam 3 200 100 100 .375 gm In Sodium Chloride 0.9% 100 ml @ 25 mls/hr IVPB Q8HR [facility] Rx# :[id number] Propofol 1,000 mg In 251.593 177.884 100 Empty Bag 1 bag @ Titrate IV .Q0M [facility] Rx#: [id number] Tube Feeding 341 496 217 Other 130 30 110 Output: Urine 970 1320 695 Other: Voiding Method Indwelling Catheter Indwelling Catheter Indwelling Catheter # Voids 1 - Exam In general patient is intubated sedated maintained on mechanical ventilation HEENT head normocephalic and atraumatic Neck is supple no JVD no goiter no lymphadenopathy Chest exam reveals a few scattered crackles no wheezing Cardiac exam reveals regular heart sounds no gallops no murmurs Abdomen is soft nontender no organomegaly with normal bowel sounds Extremity exam reveals no edema no cyanosis or clubbing - Labs CBC & Chem 7: 01/12/20 07:10 01/12/20 07:45 Labs: Abnormal Lab Results - Last 24 Hours (Table) 01/11/20 01/11/20 01/12/20 Range/Units 17:58 23:46 05:07 Lymphocytes # (1.0-4.8) k/uL ABG pH 7.46 H (7.35-7.45) ABG pCO2 52 H (35-45) mmHg ABG pO2 62 L (83-108) mmHg ABG HCO3 37 H (21-25) mmol/L ABG Total CO2 39 H (19-24) mmol/L ABG O2 Saturation 91.7 L (94-97) % Carbon Dioxide (22-30) mmol/L BUN (7-17) mg/dL Glucose (74-99) mg/dL POC Glucose (mg/dL) 267 H 290 H (75-99) mg/dL AST (14-36) U/L ALT (4-34) U/L Lactate Dehydrogenase (313-618) U/L Creatine Kinase (30-135) U/L C-Reactive Protein (<10.0) mg/L Total Protein (6.3-8.2) g/dL Albumin (3.5-5.0) g/dL 01/12/20 01/12/20 01/12/20 Range/Units 05:22 06:17 07:10 Lymphocytes # 0.8 L (1.0-4.8) k/uL ABG pH (7.35-7.45) ABG pCO2 (35-45) mmHg ABG pO2 (83-108) mmHg ABG HCO3 (21-25) mmol/L ABG Total CO2 (19-24) mmol/L ABG O2 Saturation (94-97) % Carbon Dioxide (22-30) mmol/L BUN (7-17) mg/dL Glucose (74-99) mg/dL POC Glucose (mg/dL) 261 H (75-99) mg/dL AST (14-36) U/L ALT (4-34) U/L Lactate Dehydrogenase 764 H (313-618) U/L Creatine Kinase 24 L (30-135) U/L C-Reactive Protein 26.0 H (<10.0) mg/L Total Protein (6.3-8.2) g/dL Albumin (3.5-5.0) g/dL 01/12/20 01/12/20 Range/Units 07:45 11:26 Lymphocytes # (1.0-4.8) k/uL ABG pH (7.35-7.45) ABG pCO2 (35-45) mmHg ABG pO2 (83-108) mmHg ABG HCO3 (21-25) mmol/L ABG Total CO2 (19-24) mmol/L ABG O2 Saturation (94-97) % Carbon Dioxide 38 H (22-30) mmol/L BUN 20 H (7-17) mg/dL Glucose 275 H (74-99) mg/dL POC Glucose (mg/dL) 259 H (75-99) mg/dL AST 77 H (14-36) U/L ALT 78 H (4-34) U/L Lactate Dehydrogenase (313-618) U/L Creatine Kinase (30-135) U/L C-Reactive Protein (<10.0) mg/L Total Protein 5.6 L (6.3-8.2) g/dL Albumin 2.6 L (3.5-5.0) g/dL Assessment and Plan Plan: #1 pneumonia likely related to COVID 19 viral pneumonitis, followed by pulmonary and infectious disease, condition has worsened over night patient is currently in ICU maintained on mechanical ventilation #2 severe hypernatremia, on admission corrected #3 mental status changes likely related to hypernatremia and metabolic en cephalopathy related to infection #4 acute hypoxic respiratory failure related to pneumonia, requiring oxygen at 4 L nasal cannula at this time #5 underlying history of hypertension #6 underlying history of COPD #7 underlying history of insulin-dependent diabetes mellitus millimeters #8 underlying history of stroke with right sided paralysis #9 chronic dysphagia and aspiration requiring PEG tube feeding #10 underlying history of atrial fibrillation maintained on Xarelto #11 vaginal bleeding, at this time will monitor closely, will check daily CBC, and monitor for amount of bleeding. Once her current illness has subsided, will investigate further with pelvic ultrasound and PUBLISHING DIRECTOR consult. #12 hyperkalemia, corrected At this time patient is into in the intensive care unit, no change in condition since yesterday She is intubated sedated maintained on mechanical ventilation Consultation for pulmonary and infectious disease requested in the emergency room and are following patient's Will follow closely Prognosis is guarded due to multiple underlying comorbid conditions
--- NOTE | 2020-01-12 16:43 | P.PN ---
Subjective Progress Note Date: 01/11/20 Soledad Enriquez, is an 79-year-old female who [facility] at this time will was noticed to have worsening mental status and persistent cough, patient started having elevated temperature up to 101 at that point she was sent to [facility] emergency room she had testing for influenza A and B which were negative she also had an instant test for Covid 19 which was positive she was admitted to telemetry floor she was started on IV Zithromax pulmonary and infectious disease consultation were requested. Patient also had evidence of dehydration with hypernatremia elevated sodium level at 151. Patient has a known history of multiple medical problems including history of stroke with right sided paralysis, history of aspiration patient has a PEG tube for feeding, history of insulin-dependent diabetes mellitus, history of hypertension, history of hyperlipidemia, and history of paroxysmal atrial fibrillation. On presentation patient had a temperature of 101 pulse of 82 respiration 18 blood pressure 119/63 and pulse ox of 91% on 4 L nasal cannula. White blood count was 4.8 chest x-ray revealed evidence of left basilar opacity. On 12/30/2019 patient was seen and examined on the medical floor she is somnolent responsive in no apparent distress there is low-grade fever temperature is 100.8 there is no chills no headache or dizziness no chest pain no shortness of breath no cough no nausea or vomiting no abdominal pain no diarrhea and no burning was urination. Nurse noticed some vaginal bleeding, hemoglobin is stable at 15. Pulse ox is 96% on 4 L nasal cannula , On 12/31/2019 patient was seen and examined on the medical floor she is somnolent responsive in no apparent distress, her fever is subsiding temperatures this morning 99 pulse ox is 92% on 4 L nasal cannula, patient is denying any complaints at this time however, she does not seem to be listening much to the questions, and she goes back to sleep fast. White blood count today is normal at 4.1 hemoglobin is 15.2 potassium is elevated at 5.8 On 01/01/2020 patient was seen and examined on the medical floor she is more alert and responsive today there is no fever or chills no headache or dizziness no chest pain no shortness of breath no cough no nausea or vomiting no abdominal pain no diarrhea and no urinary symptoms, she is receiving feeding through PEG tube at night, glucose level is elevated again, will increase Lantus dose to 25 units at bedtime, and continue was inserted into sliding scale. Patient is receiving oxygen via nasal cannula at 4 L her pulse ox is 92% patient does not s eem to be in any distress her temperature heart rates respiration rate and blood pressure are in normal range white blood count is 3.8 potassium 4.8 On 01/02/2020 patient was seen and examined on the medical floor she is alert and responsive in no apparent distress. This morning patient had an episode of shortness of breath with decreased O2 sat duration A team was called patient received IV Lasix Sands catheter was inserted chest x-ray was done. Currently patient is doing better pulse ox is 92% on 4 L nasal cannula. On 01/03/2020 patient was seen and examined on the medical floor she is alert responsive in no apparent distress, her pulse ox is 92% on 6 L nasal cannula she is afebrile blood pressure is 123/87 chest x-ray done yesterday reveals left lower lobe infiltrate and right perihilar infiltrates. Without significant improvement from prior x-rays. On 01/04/2020 patient was seen and examined on the medical floor she is more alert and responsive today he denies any pain or discomfort, her pulse ox was lower today and she was switched to a nonrebreather mask On 01/05/2020 patient was seen and examined on the medical floor, she is alert and responsive at this time, she is tolerating tube feeding well, she denied any pain or discomfort. On 01/06/2020 patient was seen and examined on the medical floor, she is alert responsive in no apparent distress she is answering a few questions with yes or no or nodding her head she is tolerating tube feeding well she is denying any pain or discomfort at this time, her temperature is 98.1 blood pressure 135/75 pulse ox 90% on nonrebreather mask. On 01/07/2020 Patient was seen and examined in the ICU. Around 7:00 am this morning patient was on the floor she was having worsening shortness of breath and using accessory muscles she was on nonrebreather mask and her O2 sat duration was 88% Dr. Caba job cost estimator was contacted patient was transferred to ICU she was intubated sedated and started on mechanical ventilation, she was also started on levophed for blood pressure support. On 01/08/2020 Patient was seen and examined in the ICU. She is intubated sedated maintained on mechanical ventilation, she is still on a small dose of Levophed. She is receiving tube feeding via PEG tube. Her ABG reveals a pH of 7.4 to pCO2 45 by mouth to 59 FiO2 is 70% On 01/09/2020 patient was seen and examined in the ICU she remains intubated sedated maintained on mechanical ventilation, she remains on a small dose of levophed for pressure support. ABG reveals a pH of 7.4 pCO2 47 PO2 77 with FiO2 of 70% her temperature is 90.8 pulse 69 respiration 27 blood pressure 112/70 On 01/10/2020 patient was seen and examined in the ICU she is intubated sedated maintained on mechanical ventilation, temperature is 97.9 pulse 62 respiration 20 blood pressure 121/73 ABG reveals pH of 7.39 pCO2 52 by mouth to 59 FiO2 is 60% no significant change in condition since yesterday patient is receiving tube feeding. She was not seen by critical care yesterday due to personal reasons per nurse. At this time will change consult for pulmonary and critical care to Dr. Perez. On 01/11/2020 Patient was seen and examined in the ICU she is intubated, sedated, maintained on mechanical ventilation. there is no fever or chills. ABs reveals PH 7.46 PCO2 51 PO2 58 FIO@ 100 % Objective - Vital Signs Vital signs: Vital Signs Temp 96.9 F L 01/11/20 12:00 Pulse 73 01/11/20 15:00 Resp 20 01/11/20 15:00 BP 120/68 01/11/20 15:00 Pulse Ox 93 L 01/11/20 15:00 Intake & Output 01/10/20 01/11/20 01/11/20 18:59 06:59 18:59 Intake Total 1725.804 2710.528 623.471 Output Total 2550 1405 820 Balance -1255.676 -39.472 -196.529 Weight 86 kg 86.9 kg 86.9 kg Intake: IV 780 470 Sodium Chloride 0.45% 1, 780 470 000 ml @ 100 mls/hr IV . Q10H [facility] Rx#:[id number] Intake, IV Titration 49.324 380.528 275.471 Amount Norepinephrine 4 mg In 254 12.777 Sodium Chloride 0.9% 250 ml @ 0.05 MCG/KG/MIN 15. 907 mls/hr IV .[id number] [facility] Rx#:[id number] Piperacillin-Tazobactam 3 100 .375 gm In Sodium Chloride 0.9% 100 ml @ 25 mls/hr IVPB Q8HR [facility] Rx# :[id number] Propofol 1,000 mg In 49.324 126.528 162.694 Empty Bag 1 bag @ Titrate IV .Q0M [facility] Rx#: [id number] Tube Feeding 375 515 248 Other 90 100 Output: Urine 2550 1405 820 Other: Voiding Method Indwelling Catheter Indwelling Catheter Indwelling Catheter - Exam In general patient is intubated sedated maintained on mechanical ventilation HEENT head normocephalic and atraumatic Neck is supple no JVD no goiter no lymphadenopathy Chest exam reveals a few scattered crackles no wheezing Cardiac exam reveals regular heart sounds no gallops no murmurs Abdomen is soft nontender no organomegaly with normal bowel sounds Extremity exam reveals no edema no cyanosis or clubbing - Labs CBC & Chem 7: 01/12/20 07:10 01/12/20 07:45 Labs: Abnormal Lab Results - Last 24 Hours (Table) 01/10/20 01/11/20 01/11/20 Range/Units 17:37 03:21 03:21 Lymphocytes # 0.9 L (1.0-4.8) k/uL ABG pH (7.35-7.45) ABG pCO2 (35-45) mmHg ABG pO2 (83-108) mmHg ABG HCO3 (21-25) mmol/L ABG Total CO2 (19-24) mmol/L ABG O2 Saturation (94-97) % Carbon Dioxide 36 H (22-30) mmol/L Creatinine 0.50 L (0.52-1.04) mg/dL Glucose 136 H (74-99) mg/dL POC Glucose (mg/dL) 113 H (75-99) mg/dL Ferritin 477.8 H (10.0-291.0) ng/mL AST 58 H (14-36) U/L ALT 43 H (4-34) U/L Lactate Dehydrogenase 926 H (313-618) U/L Creatine Kinase <20 L (30-135) U/L C-Reactive Protein 39.2 H (<10.0) mg/L Total Protein 5.3 L (6.3-8.2) g/dL Albumin 2.4 L (3.5-5.0) g/dL 01/11/20 01/11/20 01/11/20 Range/Units 05:09 07:03 11:41 Lymphocytes # (1.0-4.8) k/uL ABG pH 7.46 H (7.35-7.45) ABG pCO2 51 H (35-45) mmHg ABG pO2 58 L* (83-108) mmHg ABG HCO3 37 H (21-25) mmol/L ABG Total CO2 38 H (19-24) mmol/L ABG O2 Saturation 90.8 L (94-97) % Carbon Dioxide (22-30) mmol/L Creatinine (0.52-1.04) mg/dL Glucose (74-99) mg/dL POC Glucose (mg/dL) 115 H 142 H (75-99) mg/dL Ferritin (10.0-291.0) ng/mL AST (14-36) U/L ALT (4-34) U/L Lactate Dehydrogenase (313-618) U/L Creatine Kinase (30-135) U/L C-Reactive Protein (<10.0) mg/L Total Protein (6.3-8.2) g/dL Albumin (3.5-5.0) g/dL Assessment and Plan Plan: #1 pneumonia likely related to COVID 19 viral pneumonitis, followed by pulmonary and infectious disease, condition has worsened over night patient is currently in ICU maintained on mechanical ventilation #2 severe hypernatremia, on admission corrected #3 mental status changes likely related to hypernatremia and metabolic encephalopathy related to infection #4 acute hypoxic respiratory failure related to pneumonia, requiring oxygen at 4 L nasal cannula at this time #5 underlying history of hypertension #6 underlying history of COPD #7 underlying history of insulin-dependent diabetes mellitus millimeters #8 underlying history of stroke with right sided paralysis #9 chronic dysphagia and aspiration requiring PEG tube feeding #10 underlying history of atrial fibrillation maintained on Xarelto #11 vaginal bleeding, at this time will monitor closely, will check daily CBC, and monitor for amount of bleeding. Once her current illness has subsided, will investigate further with pelvic ultrasound and [employer] consult. #12 hyperkalemia, corrected At this time patient is into in the intensive care unit, no change in condition since yesterday She is intubated sedated maintained on mechanical ventilation Consultation for pulmonary and infectious disease requested in the emergency room and are following patient's Will follow closely Prognosis is guarded due to multiple underlying comorbid conditions
[2020-01-12 17:24] LABS: Glucose,Whole Blood 256 mg/dL (75-99)
--- NOTE | 2020-01-12 18:29 | PN ---
PROGRESS NOTE DATE OF SERVICE: 01/12/2020 REASON FOR FOLLOWUP: Pneumonia. INTERVAL HISTORY: The patient is currently afebrile. The patient is hemodynamically stable, not on any pressor support. FiO2 is currently 60%. No significant purulent secretion through the ET or diarrhea reported. PHYSICAL EXAMINATION: Blood pressure 133/76, pulse of 64, temperature 97.9. She is 97% on 60% FiO2. General description is an elderly female lying in bed in no distress. RESPIRATORY SYSTEM: Unlabored breathing with decreased breath sounds at the base. No wheeze. HEART: S1, S2. Regular rate and rhythm. ABDOMEN: Soft. No distention. LABS: Hemoglobin 13.4, white count 5.7, BUN of 20, creatinine 0.65. DIAGNOSTIC IMPRESSION AND PLAN: Patient with acute respiratory failure which is multifactorial in this patient with a possible component of aspiration pneumonitis. Patient is covered with Zosyn, zinc and steroids; to continue and will monitor her clinical course closely. Overall prognosis remains guarded. MMODL / IJN: [id number] /
[2020-01-12] MEDS: PRAVASTATIN SODIUM 20 MG TAB PEG/G-TUBE SCH (20:12)
[2020-01-12] MEDS: cloNIDine HCL 0.1 MG TAB PEG/G-TUBE SCH (20:13)
[2020-01-12] MEDS: FERROUS SULFATE ORAL ELIXIR 300 MG/5 ML CUP PEG/G-TUBE SCH (20:14)
[2020-01-12] MEDS: INSULIN DETEMIR (LEVEMIR) 100 UNIT/ML SYR SQ SCH (20:15)
[2020-01-12 23:55] LABS: Glucose,Whole Blood 260 mg/dL (75-99)
[2020-01-13 05:03] LABS: ABG Base Excess 13.2 mmol/L; ABG HCO3 36 mmol/L (21-25); ABG Oxygen Saturation 97.1 % (94-97); ABG PCO2 46 mmHg (35-45); ABG PH 7.51 (7.35-7.45); ABG PO2 90 mmHg (83-108); ABG TCO2 38 mmol/L (19-24); Allen Test Performed? Yes
[2020-01-13] MEDS: PROPOFOL 1,000 MG in EMPTY BAG 1 BAG IV SCH ×3 (05:52→19:39)
[2020-01-13 05:58] LABS: Glucose,Whole Blood 253 mg/dL (75-99)
[2020-01-13] MEDS: INSULIN ASPART (NovoLOG) 100 UNIT/ML VIAL SQ SCH ×4 (06:02→20:05)
[2020-01-13 06:03] LABS: Basophils % (A) 0 %; Eosinophils % (A) 1 %; HCT 39.3 % (34.0-46.0); HGB 12.7 gm/dL (11.4-16.0); Lymphocytes # (A) 0.6 k/uL (1.0-4.8); Lymphocytes % (A) 11 %; MCHC 32.2 g/dL (31.0-37.0); MCV 96.2 fL (80.0-100.0); Mean Platelet Volume 10.9; Monocytes # (A) 0.2 k/uL (0-1.0); Monocytes % (A) 4 %; Neutrophils # (A) 4.5 k/uL (1.3-7.7); Neutrophils % (A) 83 %; Platelet Count 188 k/uL (150-450); RBC 4.08 m/uL (3.80-5.40); RDW 14.1 % (11.5-15.5); WBC 5.4 k/uL (3.8-10.6)
[2020-01-13 06:15] LABS: ALT 92 U/L (4-34); AST 87 U/L (14-36); African American GFR (CKD) >90 (>60 ml/min/1.73 sqM); Albumin 2.5 g/dL (3.5-5.0); Alkaline Phosphatase 80 U/L (38-126); Anion Gap -1 mmol/L; Blood Urea Nitrogen 28 mg/dL (7-17); C Reactive Protein 14.8 mg/L (<10.0); Calcium 9.3 mg/dL (8.4-10.2); Carbon Dioxide 39 mmol/L (22-30); Chloride 102 mmol/L (98-107); Creatine Kinase <20 U/L (30-135); Glucose 273 mg/dL (74-99); LDH 765 U/L (313-618); Non-African American GFR(CKD) 89 (>60 ml/min/1.73 sqM); Potassium 3.5 mmol/L (3.5-5.1); Sodium 140 mmol/L (137-145); Total Bilirubin 0.3 mg/dL (0.2-1.3); Total Protein 5.2 g/dL (6.3-8.2)
[2020-01-13] MEDS: POTASSIUM CHLORIDE ER 20 MEQ TAB.ER PO SCH ×3 (06:28→11:56)
--- NOTE | 2020-01-13 07:23 | XR ---
EXAMINATION TYPE: XR chest 1V portable DATE OF EXAM: 01/13/2020 Comparison: 01/12/2020 Clinical History: 79-year-old female Tube placement Findings: ET tube is satisfactory. Left PICC tip in the upper right atrium. Heart upper limits of normal in siz e. Small effusions with scattered patchy opacities in the mid and lower lungs, right greater than lef t. Aeration shows improvement on the left. Possible 1 cm pulmonary nodule at the left midlung. Hyperi nflation. Impression: 1. Continued small effusions with adjacent atelectasis and/or consolidation and similar mild patchy m id and lower lung infiltrates on the right. Midlung infiltrates on the left show some improvement fro m prior. 2. Possible 1 cm left midlung pulmonary nodule. After successful treatment, contrast-enhanced CT ches t evaluation is recommended to further evaluate.
[2020-01-13 07:34] LABS: ABG PO2 59 mmHg (83-108)
[2020-01-13] MEDS: ALBUTEROL HFA INHALER INHALATION SCH ×4 (08:08→19:59)
[2020-01-13] MEDS: methylPREDNISolone SOD SUCCI 40 MG/ML 1 ML VIAL IV SCH ×2 (08:28→20:01)
[2020-01-13] MEDS: FUROSEMIDE 10 MG/ML 2 ML VIAL IV SCH (08:29)
[2020-01-13] MEDS: METOPROLOL TARTRATE 25 MG TAB PEG/G-TUBE SCH (08:29)
[2020-01-13] MEDS: PIPERACILLIN-TAZOBACTAM 3.375 GM in SODIUM CHLORIDE 0.9% 100 ML IVPB SCH ×4 (08:29→17:07)
[2020-01-13] MEDS: ENOXAPARIN 40 MG/0.4 ML SYRINGE SQ SCH ×2 (08:30→20:00)
[2020-01-13] MEDS: CHOLECALCIFEROL 1,000 UNIT TAB PEG/G-TUBE SCH (08:30)
[2020-01-13] MEDS: PANTOPRAZOLE 40 MG/10 ML VIAL IV SCH (08:30)
[2020-01-13] MEDS: CHLORHEXIDINE GLUCONATE 15 ML CUP MUCOUS MEM SCH ×2 (08:30→20:00)
[2020-01-13] MEDS: ZINC SULFATE 220 MG CAP PO SCH (08:30)
[2020-01-13] MEDS: amLODIPine 5 MG TAB PO SCH (08:30)
--- NOTE | 2020-01-13 09:32 | P.PN ---
Subjective Progress Note Date: 01/13/20 Principal diagnosis: Acute hypoxic respiratory failure on ventilator COVID 19 pneumonia Aspiration pneumonia likely mixed bacterial and/or or gram-negative related Chronic right-sided weakness dysphagia and aphasia status post PEG tube COPD Insulin-dependent diabetes mellitus uncontrolled Hypertension hypertensive cardiovascular disease Chronic atrial fibrillation on anticoagulation off of his Xeralto, has been initiated on Lovenox twice a day 01/13/2020, patient seen eval reexamined during the rounds labs reviewed medications reviewed radiographic studies reviewed as well patient FiO2 has been brought down to 60% she is on 15 of PEEP, her oxygen saturation 97% she is off of vasopressors, she is on 30 mics of propofol somewhat bradycardic will decrease of propofol to 20 mics, we'll continue to bring down the oxygen to 40% as tolerated in during next 24 hours, then will come on down and PEEP. Respiratory secretions are minimal to feed is tolerating well mental status not much change, developed bradycardia her beta blockers are being held, her chest x-ray showing small pleural effusion bilaterally and basal atelectasis and consolidation, tubes are stable, she remains on Solu-Medrol 40 every 12 hourly and Lovenox also 40 q 12, it appears that Solu-Medrol has been helping in improving and able to come down on oxygen, peak airway pressure 30, urine output has been adequate patient has some component of respiratory and metabolic alkalosis, we will lower down the Lasix to 20 mg daily also will decrease the tidal volume to 450, care time spent 35 minuteto 01/12/2020, patient seen and evaluated today care plan discussed with the nurse at length radiographic studies and lab studies reviewed, patient remains on assist control mode rate of 20 breathing about 24 26th of patient remains at PEEP of 10 FiO2 of 80% oxygen saturation are 90-94% within increase the PEEP to 15 as blood pressure is stable and titrated oxygen down to 70-60% next 24 hours chest x-ray reviewed continued to show same pattern but overall condition appears to improve to feed as tolerated very well, CBC is normal arterial blood gases history of hypercapnic hypoxic respiratory failure, bicarb is slightly going up the patient seems to be tolerating steroid well however sugars are higher side remains on insulin 01/11/2020, patient seen eval examined during the rounds labs reviewed medications reviewed radiographic studies reviewed as well patient remains sedated with 40 mics of propofol, she'll decrease it to 30 mics off of levo fed drip, patient did start some levo fed last night but now off, noted that FiO2 has been escalated to 100% and PEEP is down to 5, we'll increase PEEP back to 10 and titrated oxygen down as tolerated to bring it down to goal of 70% in next 24 hours slowly will decrease his sedation as well, 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, left-sided slight worsening has been noted with small left- sided pleural effusion likely fluid overload some of the fluid is present on the right side as well patient medications have been reviewed, patient is on Norvasc 10 mg along with Catapres and Ogestrel, patient has been started on IV steroids given hypoxia And a Difficult Reports from [facility] That Steroids Have Been Helpful in Improving Oxygenation but at the Cost of Increasing Shedding Time However, Eisenmenger's Slightly Positive Today, Patient Has Received Lasix, ABG Reviewed pH Is 7.46 PCO2 Is 51 PO2 Is 58 That Is on PEEP of 5 and 100% Oxygen, Her LDH Is up to 926 Ferritin C-Reactive Protein and IL6 Levels Are Pending 01/10/2020, patient seen and evaluated examined during the rounds labs reviewed medications reviewed care plan discussed with RN, patient FiO2 has been down to 60% and peak airway pressures are stable, patient remains on assist control mode rate of 20 breathing about 25-28 oxygen saturation 93% she is 10, spontaneous tidal volume on about 400 500 range patient has been getting his spontaneous breathing trial and she is been sedated with propofol drip very small dose of levofed is still going to come patient is on broad-spectrum antibiotics to feed is going on patient is on half normal saline as well chest x-ray shows diffuse infiltrate stable lines 01/08/2020, patient seen and evaluated examined in ICU patient remains on current ventilator with full ventilatory response be clear pressure slightly better than yesterday ranging from 30-32, patient is down to 70% now PEEP of 10 assist control is 20 breathing about 25-26 tidal volume is 400 this morning ABG reviewed ventilation is adequate slight hypoxia was noted but however sats at that time when the gas were done were 91-92% since that time patient has received 20 of Lasix and put out about 550 mL of urine and saturation is improved to 96%, patient is afebrile, patient would need a PICC line tomorrow, remains on propofol dose has been escalated today, tolerating to feed well, sugars are in low 200 range, LDH is 817 C-reactive protein is 25.2 on the they are showing downward trend her plan discussed with the staff at length will increase her Lasix to 20 mg daily will keep patient on 70% and PEEP of 10 and today attempt to titrate oxygen down again tomorrow chest x-ray showed some improved aviation compared to prior study stable ET tube, and seems to tolerating Lasix well any significant compromise in hemodynamic status critical care time spent 35 minutes 01/07/2020, patient does live increase respiratory distress earlier this morning oxygen remains very poor saturation dropped down into 70s to 80s percent, pO2 was only 46 patient was intubated and placed in ICU where patient was seen eval reexamined, patient remains on levo fed drip on 5 mics, her hemodynamic is slightly better systolic blood pressure ranging from 100 210, patient is on propofol 20, vent setting include assist control of 20 tidal volume of 400, PEEP of 10, FiO2 have been lowered down to 90%, ABG and laboratory data data reviewed chest x-ray reviewed mild bilateral interstitial infiltrate consistent with viral pneumonia, patient is being started on Lovenox twice a day continued on tube feed will increase gentle hydration, blood glucose is running slightly high will increase the Levemir, critical care time spent 45 minutes 01/06/2020, patient seen and evaluated examined remains on nonrebreather mask still have problems associated with shortness of breath, care plan discussed with RN will continue current plan of care patient can be started on as needed breathing treatments will continue to gently diurese 01/05/2020, patient seen and evaluated examined remains on nonrebreather mask, nonverbal and noncommunicative essentially no significant change in neurological condition, she remained afebrile with stable hemodynamics her oxygen saturations improved to 96% on repeat nonrebreather mask 01/04/2020, patient laying on the bed on 100% nonrebreather mask and breathing is slightly short of breath, patient is on bronchodilator along with antibiotics, has been on Lasix as well, patient remains on Zosyn, labs reviewed white cell count is normal, labs reviewed, glucose is 342, BUN/creatinine is 25 and 0.7, stool for C. difficile is negative 01/02/2020, patient seen eval examined during the rounds patient has a rapid response this morning with the shortness of breath she however responded well with Lasix, Sands's catheter has been placed, shortness of breath have improved though, on 4 L saturation is 92% low-grade temperature of 99 is present, her chest x-ray assistive of the left lower lobe pneumonia and right perihilar infiltrate prominent lung markings likely fluid overload, Objective - Vital Signs Vital signs: Vital Signs Temp 97.7 F 01/13/20 08:00 Pulse 49 L 01/13/20 09:00 Resp 20 01/13/20 09:00 BP 123/72 01/13/20 09:00 Pulse Ox 98 01/13/20 09:00 Intake & Output 01/12/20 01/13/20 01/13/20 18:59 06:59 18:59 Intake Total 881.449 834 7754.497 Output Total 875 890 60 Balance 6.333 -67 3122.497 Weight 85.2 kg 85.9 kg Intake: IV 110 130 20 NS 110 130 20 Intake, IV Titration 290.333 200 70.497 Amount Piperacillin-Tazobactam 3 100 25.0 .375 gm In Sodium Chloride 0.9% 100 ml @ 25 mls/hr IVPB Q8HR [facility] Rx# :[id number] Propofol 1,000 mg In 190.333 200 45.497 Empty Bag 1 bag @ Titrate IV .Q0M [facility] Rx#: [id number] Tube Feeding 341 403 62 Other 550 67 0054 Output: Urine 875 890 60 Other: Voiding Method Indwelling Catheter Indwelling Catheter - Exam - Neck Neck: no lymphadenopathy, no stridor - Respiratory Scattered rhonchi throughout, full ventilator support - Cardiovascular Regular rhythm and rate. S1 and S2 present, negative for S3, gallop or murmur. Trace edema to her bilateral lower extremities. - Gastrointestinal Abdomen soft and nondistended. - Integumentary Skin is warm and dry. No clubbing or cyanosis is present. Integumentary: no rash - Neurologic Sedated with propofol drip - Labs CBC & Chem 7: 01/13/20 05:05 01/13/20 05:05 Labs: Abnormal Lab Results - Last 24 Hours (Table) 01/10/20 01/12/20 01/12/20 Range/Units 05:54 07:45 11:26 Lymphocytes # (1.0-4.8) k/uL D-Dimer (<0.60) mg/L FEU ABG pH (7.35-7.45) ABG pCO2 (35-45) mmHg ABG pO2 59 L* (83-108) mmHg ABG HCO3 (21-25) mmol/L ABG Total CO2 (19-24) mmol/L ABG O2 Saturation (94-97) % Carbon Dioxide (22-30) mmol/L BUN (7-17) mg/dL Glucose (74-99) mg/dL POC Glucose (mg/dL) 259 H (75-99) mg/dL Ferritin 592.5 H (10.0-291.0) ng/mL AST (14-36) U/L ALT (4-34) U/L Lactate Dehydrogenase (313-618) U/L Creatine Kinase (30-135) U/L C-Reactive Protein (<10.0) mg/L Total Protein (6.3-8.2) g/dL Albumin (3.5-5.0) g/dL 01/12/20 01/12/20 01/13/20 Range/Units 17:23 23:54 04:57 Lymphocytes # (1.0-4.8) k/uL D-Dimer (<0.60) mg/L FEU ABG pH 7.51 H (7.35-7.45) ABG pCO2 46 H (35-45) mmHg ABG pO2 (83-108) mmHg ABG HCO3 36 H (21-25) mmol/L ABG Total CO2 38 H (19-24) mmol/L ABG O2 Saturation 97.1 H (94-97) % Carbon Dioxide (22-30) mmol/L BUN (7-17) mg/dL Glucose (74-99) mg/dL POC Glucose (mg/dL) 256 H 260 H (75-99) mg/dL Ferritin (10.0-291.0) ng/mL AST (14-36) U/L ALT (4-34) U/L Lactate Dehydrogenase (313-618) U/L Creatine Kinase (30-135) U/L C-Reactive Protein (<10.0) mg/L Total Protein (6.3-8.2) g/dL Albumin (3.5-5.0) g/dL 01/13/20 01/13/20 01/13/20 Range/Units 05:05 05:05 05:05 Lymphocytes # 0.6 L (1.0-4.8) k/uL D-Dimer 0.68 H (<0.60) mg/L FEU ABG pH (7.35-7.45) ABG pCO2 (35-45) mmHg ABG pO2 (83-108) mmHg ABG HCO3 (21-25) mmol/L ABG Total CO2 (19-24) mmol/L ABG O2 Saturation (94-97) % Carbon Dioxide 39 H (22-30) mmol/L BUN 28 H (7-17) mg/dL Glucose 273 H (74-99) mg/dL POC Glucose (mg/dL) (75-99) mg/dL Ferritin (10.0-291.0) ng/mL AST 87 H (14-36) U/L ALT 92 H (4-34) U/L Lactate Dehydrogenase 765 H (313-618) U/L Creatine Kinase <20 L (30-135) U/L C-Reactive Protein 14.8 H (<10.0) mg/L Total Protein 5.2 L (6.3-8.2) g/dL Albumin 2.5 L (3.5-5.0) g/dL 01/13/20 Range/Units 05:57 Lymphocytes # (1.0-4.8) k/uL D-Dimer (<0.60) mg/L FEU ABG pH (7.35-7.45) ABG pCO2 (35-45) mmHg ABG pO2 (83-108) mmHg ABG HCO3 (21-25) mmol/L ABG Total CO2 (19-24) mmol/L ABG O2 Saturation (94-97) % Carbon Dioxide (22-30) mmol/L BUN (7-17) mg/dL Glucose (74-99) mg/dL POC Glucose (mg/dL) 253 H (75-99) mg/dL Ferritin (10.0-291.0) ng/mL AST (14-36) U/L ALT (4-34) U/L Lactate Dehydrogenase (313-618) U/L Creatine Kinase (30-135) U/L C-Reactive Protein (<10.0) mg/L Total Protein (6.3-8.2) g/dL Albumin (3.5-5.0) g/dL Assessment and Plan Assessment: Acute hypoxic respiratory failure on ventilator COVID 19 pneumonia with some improvement in oxygenation Ventilator adjustment now patient is on 60 % oxygen but will be titrated oxygen down as tolerated, her peak airway pressures are stable high 20s , will titrate oxygen to 40 % in next 24 hours and then start coming down on the Continue I's and TOWARDS negative side monitor urine output, we'll decrease the Lasix to 20 mg daily Patient is getting trial of steroids seems to be tolerating well thus hyperglycemia is some improvement in chest x-ray and oxygenation, there is some anecdotal reports coming from [place] it helps oxygenation however with the cost of prolonged shedding of viral particles we'll decrease it to 2 times a day Aspiration pneumonia likely mixed bacterial and/or or gram-negative related, continue Zosyn Chronic right-sided weakness dysphagia and aphasia status post PEG tube COPD Insulin-dependent diabetes mellitus uncontrolled Hypertension hypertensive cardiovascular disease, will decrease Norvasc to 5 mg Chronic atrial fibrillation on anticoagulation Lovenox Critical care time 35 minutes Plan: Titrated oxygen down as as tolerated with high PEEP, will be lowered subsequently Anticoagulation. Lovenox twice a day Continue Norvasc to 5 mg We will keep the dose of Levemir due to hyperglycemia him a sugars appears to be steroid related, patient has been tolerating tube feed well Observe off of levo fed Continue tube feed Ventilator adjustment Continue to check inflammation tree labs for covid19 as needed Monitor sodium levels closely Continue respiratory and contact isolation Time with Patient: Greater than 30
[2020-01-13] MEDS: NOREPINEPHRINE 4 MG in SODIUM CHLORIDE 0.9% 250 ML IV SCH (10:35)
[2020-01-13] MEDS: LISINOPRIL 2.5 MG TAB PEG/G-TUBE SCH (10:37)
[2020-01-13 12:04] LABS: Glucose,Whole Blood 268 mg/dL (75-99)
--- NOTE | 2020-01-13 12:41 | P.PN ---
Subjective Progress Note Date: 01/13/20 Soledad Enriquez, is an 79-year-old female who [facility] at this time will was noticed to have worsening mental status and persistent cough, patient started having elevated temperature up to 101 at that point she was sent to [facility] emergency room she had testing for influenza A and B which were negative she also had an instant test for Covid 19 which was positive she was admitted to telemetry floor she was started on IV Zithromax pulmonary and infectious disease consultation were requested. Patient also had evidence of dehydration with hypernatremia elevated sodium level at 151. Patient has a known history of multiple medical problems including history of stroke with right sided paralysis, history of aspiration patient has a PEG tube for feeding, history of insulin-dependent diabetes mellitus, history of hypertension, history of hyperlipidemia, and history of paroxysmal atrial fibrillation. On presentation patient had a temperature of 101 pulse of 82 respiration 18 blood pressure 119/63 and pulse ox of 91% on 4 L nasal cannula. White blood count was 4.8 chest x-ray revealed evidence of left basilar opacity. On 12/30/2019 patient was seen and examined on the medical floor she is somnolent responsive in no apparent distress there is low-grade fever temperature is 100.8 there is no chills no headache or dizziness no chest pain no shortness of breath no cough no nausea or vomiting no abdominal pain no diarrhea and no burning was urination. Nurse noticed some vaginal bleeding, hemoglobin is stable at 15. Pulse ox is 96% on 4 L nasal cannula , On 12/31/2019 patient was seen and examined on the medical floor she is somnolent responsive in no apparent distress, her fever is subsiding temperatures this morning 99 pulse ox is 92% on 4 L nasal cannula, patient is denying any complaints at this time however, she does not seem to be listening much to the questions, and she goes back to sleep fast. White blood count today is normal at 4.1 hemoglobin is 15.2 potassium is elevated at 5.8 On 01/01/2020 patient was seen and examined on the medical floor she is more alert and responsive today there is no fever or chills no headache or dizziness no chest pain no shortness of breath no cough no nausea or vomiting no abdominal pain no diarrhea and no urinary symptoms, she is receiving feeding through PEG tube at night, glucose level is elevated again, will increase Lantus dose to 25 units at bedtime, and continue was inserted into sliding scale. Patient is receiving oxygen via nasal cannula at 4 L her pulse ox is 92% patient does not s eem to be in any distress her temperature heart rates respiration rate and blood pressure are in normal range white blood count is 3.8 potassium 4.8 On 01/02/2020 patient was seen and examined on the medical floor she is alert and responsive in no apparent distress. This morning patient had an episode of shortness of breath with decreased O2 sat duration A team was called patient received IV Lasix Sands catheter was inserted chest x-ray was done. Currently patient is doing better pulse ox is 92% on 4 L nasal cannula. On 01/03/2020 patient was seen and examined on the medical floor she is alert responsive in no apparent distress, her pulse ox is 92% on 6 L nasal cannula she is afebrile blood pressure is 123/87 chest x-ray done yesterday reveals left lower lobe infiltrate and right perihilar infiltrates. Without significant improvement from prior x-rays. On 01/04/2020 patient was seen and examined on the medical floor she is more alert and responsive today he denies any pain or discomfort, her pulse ox was lower today and she was switched to a nonrebreather mask On 01/05/2020 patient was seen and examined on the medical floor, she is alert and responsive at this time, she is tolerating tube feeding well, she denied any pain or discomfort. On 01/06/2020 patient was seen and examined on the medical floor, she is alert responsive in no apparent distress she is answering a few questions with yes or no or nodding her head she is tolerating tube feeding well she is denying any pain or discomfort at this time, her temperature is 98.1 blood pressure 135/75 pulse ox 90% on nonrebreather mask. On 01/07/2020 Patient was seen and examined in the ICU. Around 7:00 am this morning patient was on the floor she was having worsening shortness of breath and using accessory muscles she was on nonrebreather mask and her O2 sat duration was 88% Dr. Caba facilities maintenance worker was contacted patient was transferred to ICU she was intubated sedated and started on mechanical ventilation, she was also started on levophed for blood pressure support. On 01/08/2020 Patient was seen and examined in the ICU. She is intubated sedated maintained on mechanical ventilation, she is still on a small dose of Levophed. She is receiving tube feeding via PEG tube. Her ABG reveals a pH of 7.4 to pCO2 45 by mouth to 59 FiO2 is 70% On 01/09/2020 patient was seen and examined in the ICU she remains intubated sedated maintained on mechanical ventilation, she remains on a small dose of levophed for pressure support. ABG reveals a pH of 7.4 pCO2 47 PO2 77 with FiO2 of 70% her temperature is 90.8 pulse 69 respiration 27 blood pressure 112/70 On 01/10/2020 patient was seen and examined in the ICU she is intubated sedated maintained on mechanical ventilation, temperature is 97.9 pulse 62 respiration 20 blood pressure 121/73 ABG reveals pH of 7.39 pCO2 52 by mouth to 59 FiO2 is 60% no significant change in condition since yesterday patient is receiving tube feeding. She was not seen by critical care yesterday due to personal reasons per nurse. At this time will change consult for pulmonary and critical care to Dr. Perez. On 01/11/2020 Patient was seen and examined in the ICU she is intubated, sedated, maintained on mechanical ventilation. there is no fever or chills. ABs reveals PH 7.46 PCO2 51 PO2 58 FIO@ 100 % On 01/12/2020 patient was seen and examined in the ICU she is intubated sedated maintained on mechanical ventilation she is not on any pressure support there is no fever or chills she is receiving tube feeding. On 01/13/2020 patient was seen and examined in the ICU she is intubated sedated maintained on mechanical ventilation, she is maintained on 2 feeding glucose is elevated, dose of Levemir will be increased to 35 units daily, continue with sliding scale. ABG reveals pH 7.5 one pCO2 46 by mouth to 90 FiO2 of 60% Objective - Vital Signs Vital signs: Vital Signs Temp 98.2 F 01/13/20 12:00 Pulse 55 L 01/13/20 12:00 Resp 20 01/13/20 12:00 BP 145/73 01/13/20 12:00 Pulse Ox 98 01/13/20 12:00 Intake & Output 01/12/20 01/13/20 01/13/20 18:59 06:59 18:59 Intake Total 881.743 862 6238.624 Output Total 875 890 640 Balance 6.333 -67 2730.624 Weight 85.2 kg 85.9 kg 85.9 kg Intake: IV 110 130 50 NS 110 130 50 Intake, IV Titration 290.333 200 127.624 Amount Piperacillin-Tazobactam 3 100 50.0 .375 gm In Sodium Chloride 0.9% 100 ml @ 25 mls/hr IVPB Q8HR [facility] Rx# :[id number] Propofol 1,000 mg In 190.333 200 77.624 Empty Bag 1 bag @ Titrate IV .Q0M [facility] Rx#: [id number] Tube Feeding 341 403 163 Other 185 89 4446 Output: Urine 875 890 640 Other: Voiding Method Indwelling Catheter Indwelling Catheter - Exam In general patient is intubated sedated maintained on mechanical ventilation HEENT head normocephalic and atraumatic Neck is supple no JVD no goiter no lymphadenopathy Chest exam reveals a few scattered crackles no wheezing Cardiac exam reveals regular heart sounds no gallops no murmurs Abdomen is soft nontender no organomegaly with normal bowel sounds Extremity exam reveals no edema no cyanosis or clubbing - Labs CBC & Chem 7: 01/13/20 05:05 01/13/20 05:05 Labs: Abnormal Lab Results - Last 24 Hours (Table) 01/10/20 01/12/20 01/12/20 Range/Units 05:54 07:45 17:23 Lymphocytes # (1.0-4.8) k/uL D-Dimer (<0.60) mg/L FEU ABG pH (7.35-7.45) ABG pCO2 (35-45) mmHg ABG pO2 59 L* (83-108) mmHg ABG HCO3 (21-25) mmol/L ABG Total CO2 (19-24) mmol/L ABG O2 Saturation (94-97) % Carbon Dioxide (22-30) mmol/L BUN (7-17) mg/dL Glucose (74-99) mg/dL POC Glucose (mg/dL) 256 H (75-99) mg/dL Ferritin 592.5 H (10.0-291.0) ng/mL AST (14-36) U/L ALT (4-34) U/L Lactate Dehydrogenase (313-618) U/L Creatine Kinase (30-135) U/L C-Reactive Protein (<10.0) mg/L Total Protein (6.3-8.2) g/dL Albumin (3.5-5.0) g/dL 01/12/20 01/13/20 01/13/20 Range/Units 23:54 04:57 05:05 Lymphocytes # 0.6 L (1.0-4.8) k/uL D-Dimer (<0.60) mg/L FEU ABG pH 7.51 H (7.35-7.45) ABG pCO2 46 H (35-45) mmHg ABG pO2 (83-108) mmHg ABG HCO3 36 H (21-25) mmol/L ABG Total CO2 38 H (19-24) mmol/L ABG O2 Saturation 97.1 H (94-97) % Carbon Dioxide (22-30) mmol/L BUN (7-17) mg/dL Glucose (74-99) mg/dL POC Glucose (mg/dL) 260 H (75-99) mg/dL Ferritin (10.0-291.0) ng/mL AST (14-36) U/L ALT (4-34) U/L Lactate Dehydrogenase (313-618) U/L Creatine Kinase (30-135) U/L C-Reactive Protein (<10.0) mg/L Total Protein (6.3-8.2) g/dL Albumin (3.5-5.0) g/dL 01/13/20 01/13/20 01/13/20 Range/Units 05:05 05:05 05:57 Lymphocytes # (1.0-4.8) k/uL D-Dimer 0.68 H (<0.60) mg/L FEU ABG pH (7.35-7.45) ABG pCO2 (35-45) mmHg ABG pO2 (83-108) mmHg ABG HCO3 (21-25) mmol/L ABG Total CO2 (19-24) mmol/L ABG O2 Saturation (94-97) % Carbon Dioxide 39 H (22-30) mmol/L BUN 28 H (7-17) mg/dL Glucose 273 H (74-99) mg/dL POC Glucose (mg/dL) 253 H (75-99) mg/dL Ferritin (10.0-291.0) ng/mL AST 87 H (14-36) U/L ALT 92 H (4-34) U/L Lactate Dehydrogenase 765 H (313-618) U/L Creatine Kinase <20 L (30-135) U/L C-Reactive Protein 14.8 H (<10.0) mg/L Total Protein 5.2 L (6.3-8.2) g/dL Albumin 2.5 L (3.5-5.0) g/dL 01/13/20 Range/Units 12:02 Lymphocytes # (1.0-4.8) k/uL D-Dimer (<0.60) mg/L FEU ABG pH (7.35-7.45) ABG pCO2 (35-45) mmHg ABG pO2 (83-108) mmHg ABG HCO3 (21-25) mmol/L ABG Total CO2 (19-24) mmol/L ABG O2 Saturation (94-97) % Carbon Dioxide (22-30) mmol/L BUN (7-17) mg/dL Glucose (74-99) mg/dL POC Glucose (mg/dL) 268 H (75-99) mg/dL Ferritin (10.0-291.0) ng/mL AST (14-36) U/L ALT (4-34) U/L Lactate Dehydrogenase (313-618) U/L Creatine Kinase (30-135) U/L C-Reactive Protein (<10.0) mg/L Total Protein (6.3-8.2) g/dL Albumin (3.5-5.0) g/dL Assessment and Plan Plan: #1 pneumonia likely related to COVID 19 viral pneumonitis, followed by pulmonary and infectious disease, condition has worsened over night patient is currently in ICU maintained on mechanical ventilation #2 severe hypernatremia, on admission corrected #3 mental status changes likely related to hypernatremia and metabolic encephalopathy related to infection #4 acute hypoxic respiratory failure related to pneumonia, requiring oxygen at 4 L nasal cannula at this time #5 underlying history of hypertension #6 underlying history of COPD #7 underlying history of insulin-dependent diabetes mellitus, insulin dose adjusted today Levemir increased to 35 units daily #8 underlying history of stroke with right sided paralysis #9 chronic dysphagia and aspiration requiring PEG tube feeding #10 underlying history of atrial fibrillation maintained on Xarelto #11 vaginal bleeding, at this time will monitor closely, will check daily CBC, and monitor for amount of bleeding. Once her current illness has subsided, will investigate further with pelvic ultrasound and [employer] consult. #12 hyperkalemia, corrected At this time patient is into in the intensive care unit, no change in condition since yesterday She is intubated sedated maintained on mechanical ventilation Consultation for pulmonary and infectious disease requested in the emergency room and are following patient's Will follow closely Prognosis is guarded due to multiple underlying comorbid conditions
[2020-01-13 15:41] LABS: Ferritin 462.4 ng/mL (10.0-291.0)
[2020-01-13] MEDS ORDERED: POTASSIUM BICARBONATE/CIT AC 20 MEQ TABLET.EFF NG-TUBE SCH (17:00)
[2020-01-13 17:08] LABS: Glucose,Whole Blood 232 mg/dL (75-99)
--- NOTE | 2020-01-13 17:24 | PN ---
PROGRESS NOTE DATE OF SERVICE: 01/13/2020 REASON FOR FOLLOWUP: Pneumonia. INTERVAL HISTORY: The patient is currently afebrile. The patient remains to be intubated on the vent. The patient is hemodynamically stable not on pressor support. FiO2 is currently 40% with no purulent secretion ET or any diarrhea reported. PHYSICAL EXAMINATION: Blood pressure 135/70 with a pulse of 52, temperature 98.2, he is 96% on 40% FiO2. General description is an elderly female, intubated on the vent. RESPIRATORY SYSTEM: Unlabored breathing, decreased breath sounds at the base, no wheeze. HEART: S1, S2. Regular rate and rhythm. ABDOMEN: Soft, no distension. LABS: Hemoglobin is 12.7, white count 5.4, BUN of 28, creatinine 0.54. DIAGNOSTIC IMPRESSION AND PLAN: Patient with acute respiratory failure which is multifactorial in this patient. Currently covered with [employer] to continue while waiting for condition to stabilize and continue supportive care. MMODL / IJN: [id number] / MTDD
[2020-01-13 19:53] LABS: Glucose,Whole Blood 230 mg/dL (75-99)
[2020-01-13] MEDS: cloNIDine HCL 0.1 MG TAB PEG/G-TUBE SCH (19:56)
[2020-01-13] MEDS: PRAVASTATIN SODIUM 20 MG TAB PEG/G-TUBE SCH (19:56)
[2020-01-13] MEDS: FERROUS SULFATE ORAL ELIXIR 300 MG/5 ML CUP PEG/G-TUBE SCH (19:56)
[2020-01-13] MEDS: INSULIN DETEMIR (LEVEMIR) 100 UNIT/ML SYR SQ SCH (20:03)
[2020-01-14 00:02] LABS: Glucose,Whole Blood 232 mg/dL (75-99)
[2020-01-14] MEDS: METOPROLOL TARTRATE 25 MG TAB PEG/G-TUBE SCH ×2 (00:17→08:21)
[2020-01-14] MEDS: NOREPINEPHRINE 4 MG in SODIUM CHLORIDE 0.9% 250 ML IV SCH ×2 (00:18→16:22)
[2020-01-14] MEDS: PIPERACILLIN-TAZOBACTAM 3.375 GM in SODIUM CHLORIDE 0.9% 100 ML IVPB SCH ×3 (00:21→16:22)
[2020-01-14] MEDS: INSULIN ASPART (NovoLOG) 100 UNIT/ML VIAL SQ SCH ×6 (00:22→20:57)
[2020-01-14] MEDS: PROPOFOL 1,000 MG in EMPTY BAG 1 BAG IV SCH ×3 (02:54→18:22)
[2020-01-14 04:06] LABS: Glucose,Whole Blood 278 mg/dL (75-99)
[2020-01-14 04:56] LABS: ABG Base Excess 13.1 mmol/L; ABG HCO3 36 mmol/L (21-25); ABG Oxygen Saturation 96.4 % (94-97); ABG PCO2 41 mmHg (35-45); ABG PH 7.55 (7.35-7.45); ABG PO2 79 mmHg (83-108); ABG TCO2 37 mmol/L (19-24); Allen Test Performed? Yes
[2020-01-14 05:45] LABS: Basophils % (A) 0 %; Eosinophils % (A) 0 %; HCT 41.6 % (34.0-46.0); HGB 13.4 gm/dL (11.4-16.0); Lymphocytes # (A) 0.8 k/uL (1.0-4.8); Lymphocytes % (A) 13 %; MCH 30.9 pg (25.0-35.0); MCHC 32.3 g/dL (31.0-37.0); MCV 95.8 fL (80.0-100.0); Mean Platelet Volume 10.9; Monocytes # (A) 0.3 k/uL (0-1.0); Monocytes % (A) 5 %; Neutrophils # (A) 4.9 k/uL (1.3-7.7); Neutrophils % (A) 80 %; Platelet Count 188 k/uL (150-450); RBC 4.35 m/uL (3.80-5.40); RDW 14.4 % (11.5-15.5); WBC 6.1 k/uL (3.8-10.6)
[2020-01-14 06:06] LABS: ALT 98 U/L (4-34); AST 65 U/L (14-36); African American GFR (CKD) >90 (>60 ml/min/1.73 sqM); Albumin 2.6 g/dL (3.5-5.0); Alkaline Phosphatase 79 U/L (38-126); Anion Gap 4 mmol/L; Blood Urea Nitrogen 30 mg/dL (7-17); Calcium 9.5 mg/dL (8.4-10.2); Carbon Dioxide 34 mmol/L (22-30); Chloride 103 mmol/L (98-107); Creatine Kinase <20 U/L (30-135); Glucose 270 mg/dL (74-99); LDH 604 U/L (313-618); Non-African American GFR(CKD) >90 (>60 ml/min/1.73 sqM); Potassium 3.6 mmol/L (3.5-5.1); Sodium 141 mmol/L (137-145); Total Bilirubin 0.5 mg/dL (0.2-1.3); Total Protein 5.4 g/dL (6.3-8.2)
--- NOTE | 2020-01-14 06:44 | XR ---
EXAMINATION TYPE: XR chest 1V portable DATE OF EXAM: 01/14/2020 HISTORY: Mechanically ventilated. REFERENCE: Previous study dated 01/13/2020. FINDINGS: An ET tube remains in place, unchanged in appearance. A left basilic PICC line is in place. Its tip is at the cavoatrial junction. There are bilateral effusions. There is worsening right basilar airspace disease. The heart is not en larged. Previously described left pulmonary nodule is less clearly evident on this examination. IMPRESSION: 1. CONTINUING BILATERAL EFFUSIONS. 2. WORSENING RIGHT BASILAR AIRSPACE DISEASE.
[2020-01-14] MEDS ORDERED: POTASSIUM CHLORIDE ER 20 MEQ TAB.ER PO SCH (07:00)
[2020-01-14] MEDS: ALBUTEROL HFA INHALER INHALATION SCH ×4 (07:43→19:47)
[2020-01-14] MEDS ORDERED: hydrALAZINE HCL 20 MG/ML 1 ML VIAL IVP PRN (08:19)
[2020-01-14 08:20] LABS: Glucose,Whole Blood 239 mg/dL (75-99)
--- NOTE | 2020-01-14 08:26 | P.PN ---
Subjective Progress Note Date: 01/14/20 Principal diagnosis: Acute hypoxic respiratory failure on ventilator COVID 19 pneumonia Aspiration pneumonia likely mixed bacterial and/or or gram-negative related Chronic right-sided weakness dysphagia and aphasia status post PEG tube COPD Insulin-dependent diabetes mellitus uncontrolled Hypertension hypertensive cardiovascular disease Chronic atrial fibrillation on anticoagulation off of his Xeralto, has been initiated on Lovenox twice a day 01/14/2020, patient seen eval reexamined during the rounds labs reviewed medications reviewed, chest x-ray reviewed as well, patient remains sedated with propofol drip 25 mics, she is bradycardic heart rate is 40-45 with slightly elevated blood pressure 160-170 breathing with vent rate was initially 20 have been reduced to 16, tidal volume is 450 keep is 15 has been lowered down to 10 saturation is 95-96% chest x-ray reviewed right lower lobe infiltrate and small effusions seen overall lung parenchyma and infiltrate appears stable and continued to improve, patient is tolerating every feed very well labs reviewed CBC within normal limits chemistry revealed ABG combination of metabolic and respiratory alkalosis ventilator has been adjusted Lasix have been lowered down to once a day some contribution from his steroids presents which will be reduced to 40 daily, patient will be observed how she does with lower PEEP, we will start hydralazine IV for blood pressure control, continue to hold Lopressor and also hold clonidine we will get cardiovascular services opinion consultation, patient has been tolerating tube feed very well respiratory secretions are minimal adequate urine output has been present 01/13/2020, patient seen eval reexamined during the rounds labs reviewed medications reviewed radiographic studies reviewed as well patient FiO2 has been brought down to 60% she is on 15 of PEEP, her oxygen saturation 97% she is off of vasopressors, she is on 30 mics of propofol somewhat bradycardic will decr ease of propofol to 20 mics, we'll continue to bring down the oxygen to 40% as tolerated in during next 24 hours, then will come on down and PEEP. Respiratory secretions are minimal to feed is tolerating well mental status not much change, developed bradycardia her beta blockers are being held, her chest x-ray showing small pleural effusion bilaterally and basal atelectasis and consolidation, tub es are stable, she remains on Solu-Medrol 40 every 12 hourly and Lovenox also 40 q 12, it appears that Solu-Medrol has been helping in improving and able to come down on oxygen, peak airway pressure 30, urine output has been adequate patient has some component of respiratory and metabolic alkalosis, we will lower down the Lasix to 20 mg daily also will decrease the tidal volume to 450, care time spent 35 minuteto 01/12/2020, patient seen and evaluated today care plan discussed with the nurse at length radiographic studies and lab studies reviewed, patient remains on assist control mode rate of 20 breathing about 24 26th of patient remains at PEEP of 10 FiO2 of 80% oxygen saturation are 90-94% within increase the PEEP to 15 as blood pressure is stable and titrated oxygen down to 70-60% next 24 hours chest x-ray reviewed continued to show same pattern but overall condition appears to improve to feed as tolerated very well, CBC is normal arterial blood gases history of hypercapnic hypoxic respiratory failure, bicarb is slightly going up the patient seems to be tolerating steroid well however sugars are higher side remains on insulin 01/11/2020, patient seen eval examined during the rounds labs reviewed medications reviewed radiographic studies reviewed as well patient remains se dated with 40 mics of propofol, she'll decrease it to 30 mics off of levo fed drip, patient did start some levo fed last night but now off, noted that FiO2 has been escalated to 100% and PEEP is down to 5, we'll increase PEEP back to 10 and titrated oxygen down as tolerated to bring it down to goal of 70% in next 24 hours slowly will decrease his sedation as well, 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, left-sided slight worsening has been noted with small left- sided pleural effusion likely fluid overload some of the fluid is present on the right side as well patient medications have been reviewed, patient is on Norvasc 10 mg along with Catapres and Ogestrel, patient has been started on IV steroids given hypoxia And a Difficult Reports from [place] That Steroids Have Been Helpful in Improving Oxygenation but at the Cost of Increasing Shedding Time However, Eisenmenger's Slightly Positive Today, Patient Has Received Lasix, ABG Reviewed pH Is 7.46 PCO2 Is 51 PO2 Is 58 That Is on PEEP of 5 and 100% Oxygen, Her LDH Is up to 926 Ferritin C-Reactive Protein and IL6 Levels Are Pending 01/10/2020, patient seen and evaluated examined during the rounds labs reviewed medications reviewed care plan discussed with RN, patient FiO2 has been down to 60% and peak airway pressures are stable, patient remains on assist control mode rate of 20 breathing about 25-28 oxygen saturation 93% she is 10, spontaneous tidal volume on about 400 500 range patient has been getting his spontaneous breathing trial and she is been sedated with propofol drip very small dose of levofed is still going to come patient is on broad-spectrum antibiotics to feed is going on patient is on half normal saline as well chest x-ray shows diffuse infiltrate stable lines 01/08/2020, patient seen and evaluated examined in ICU patient remains on current ventilator with full ventilatory response be clear pressure slightly better than yesterday ranging from 30-32, patient is down to 70% now PEEP of 10 assist control is 20 breathing about 25-26 tidal volume is 400 this morning ABG reviewed ventilation is adequate slight hypoxia was noted but however sats at that time when the gas were done were 91-92% since that time patient has received 20 of Lasix and put out about 550 mL of urine and saturation is i mproved to 96%, patient is afebrile, patient would need a PICC line tomorrow, remains on propofol dose has been escalated today, tolerating to feed well, sugars are in low 200 range, LDH is 817 C-reactive protein is 25.2 on the they are showing downward trend her plan discussed with the staff at length will increase her Lasix to 20 mg daily will keep patient on 70% and PEEP of 10 and today attempt to titrate oxygen down again tomorrow chest x-ray showed some improved aviation compared to prior study stable ET tube, and seems to tolerating Lasix well any significant compromise in hemodynamic status critical care time spent 35 minutes 01/07/2020, patient does live increase respiratory distress earlier this morning oxygen remains very poor saturation dropped down into 70s to 80s percent, pO2 was only 46 patient was intubated and placed in ICU where patient was seen eval reexamined, patient remains on levo fed drip on 5 mics, her hemodynamic is slightly better systolic blood pressure ranging from 100 210, patient is on propofol 20, vent setting include assist control of 20 tidal volume of 400, PEEP of 10, FiO2 have been lowered down to 90%, ABG and laboratory data data reviewed chest x-ray reviewed mild bilateral interstitial infiltrate consistent with viral pneumonia, patient is being started on Lovenox twice a day continued on tube feed will increase gentle hydration, blood glucose is running slightly high will increase the Levemir, critical care time spent 45 minutes 01/06/2020, patient seen and evaluated examined remains on nonrebreather mask still have problems associated with shortness of breath, care plan discussed with RN will continue current plan of care patient can be started on as needed breathing treatments will continue to gently diurese 01/05/2020, patient seen and evaluated examined remains on nonrebreather mask, nonverbal and noncommunicative essentially no significant change in neurological condition, she remained afebrile with stable hemodynamics her oxygen saturations improved to 96% on repeat nonrebreather mask 01/04/2020, patient laying on the bed on 100% nonrebreather mask and breathing is slightly short of breath, patient is on bronchodilator along with antibiotics, has been on Lasix as well, patient remains on Zosyn, labs reviewed white cell count is normal, labs reviewed, glucose is 342, BUN/creatinine is 25 and 0.7, stool for C. difficile is negative 01/02/2020, patient seen eval examined during the rounds patient has a rapid re sponse this morning with the shortness of breath she however responded well with Lasix, Sands's catheter has been placed, shortness of breath have improved though, on 4 L saturation is 92% low-grade temperature of 99 is present, her chest x-ray assistive of the left lower lobe pneumonia and right perihilar infiltrate prominent lung markings likely fluid overload, Objective - Vital Signs Vital signs: Vital Signs Temp 97.8 F 01/14/20 04:00 Pulse 58 L 01/14/20 07:00 Resp 16 01/14/20 07:00 BP 123/77 01/14/20 07:00 Pulse Ox 99 01/14/20 07:00 Intake & Output 01/13/20 01/14/20 01/14/20 18:59 06:59 18:59 Intake Total 3711.301 735.013 46 Output Total 860 540 45 Balance 2851.301 195.013 1 Weight 85.9 kg 85.2 kg Intake: IV 110 120 10 NS 110 120 10 Intake, IV Titration 203.301 105.013 Amount Piperacillin-Tazobactam 3 50.0 .375 gm In Sodium Chloride 0.9% 100 ml @ 25 mls/hr IVPB Q8HR [facility] Rx# :[id number] Propofol 1,000 mg In 153.301 105.013 Empty Bag 1 bag @ Titrate IV .Q0M [facility] Rx#: [id number] Tube Feeding 338 420 36 Other 3060 90 Output: Urine 860 540 45 Other: Voiding Method Indwelling Catheter Indwelling Catheter - Exam - Neck Neck: no lymphadenopathy, no stridor - Respiratory Scattered rhonchi throughout, full ventilator support - Cardiovascular Regular rhythm and rate. S1 and S2 present, negative for S3, gallop or murmur. Trace edema to her bilateral lower extremities. - Gastrointestinal Abdomen soft and nondistended. - Integumentary Skin is warm and dry. No clubbing or cyanosis is present. Integumentary: no rash - Neurologic Sedated with propofol drip - Labs CBC & Chem 7: 01/14/20 05:31 01/14/20 05:31 Labs: Abnormal Lab Results - Last 24 Hours (Table) 01/13/20 01/13/20 01/13/20 Range/Units 05:05 12:02 17:07 Lymphocytes # (1.0-4.8) k/uL ABG pH (7.35-7.45) ABG pO2 (83-108) mmHg ABG HCO3 (21-25) mmol/L ABG Total CO2 (19-24) mmol/L Carbon Dioxide (22-30) mmol/L BUN (7-17) mg/dL Glucose (74-99) mg/dL POC Glucose (mg/dL) 268 H 232 H (75-99) mg/dL Ferritin 462.4 H (10.0-291.0) ng/mL AST (14-36) U/L ALT (4-34) U/L Creatine Kinase (30-135) U/L Total Protein (6.3-8.2) g/dL Albumin (3.5-5.0) g/dL 01/13/20 01/14/20 01/14/20 Range/Units 19:52 00:00 04:04 Lymphocytes # (1.0-4.8) k/uL ABG pH (7.35-7.45) ABG pO2 (83-108) mmHg ABG HCO3 (21-25) mmol/L ABG Total CO2 (19-24) mmol/L Carbon Dioxide (22-30) mmol/L BUN (7-17) mg/dL Glucose (74-99) mg/dL POC Glucose (mg/dL) 230 H 232 H 278 H (75-99) mg/dL Ferritin (10.0-291.0) ng/mL AST (14-36) U/L ALT (4-34) U/L Creatine Kinase (30-135) U/L Total Protein (6.3-8.2) g/dL Albumin (3.5-5.0) g/dL 01/14/20 01/14/20 01/14/20 Range/Units 04:49 05:31 05:31 Lymphocytes # 0.8 L (1.0-4.8) k/uL ABG pH 7.55 H (7.35-7.45) ABG pO2 79 L (83-108) mmHg ABG HCO3 36 H (21-25) mmol/L ABG Total CO2 37 H (19-24) mmol/L Carbon Dioxide 34 H (22-30) mmol/L BUN 30 H (7-17) mg/dL Glucose 270 H (74-99) mg/dL POC Glucose (mg/dL) (75-99) mg/dL Ferritin (10.0-291.0) ng/mL AST 65 H (14-36) U/L ALT 98 H (4-34) U/L Creatine Kinase <20 L (30-135) U/L Total Protein 5.4 L (6.3-8.2) g/dL Albumin 2.6 L (3.5-5.0) g/dL Assessment and Plan Assessment: Sinus bradycardia with hypertension, continue to hold Lopressor and clonidine will give hydralazine IV as needed consult cardiovascular disease Acute hypoxic respiratory failure on ventilator COVID 19 pneumonia with some improvement in oxygenation Ventilator adjustment now patient is on 40 % oxygen but will be titrated oxygen down as tolerated, her peak airway pressures are stable high 30s , will titrate peep in next 24 hours and then start coming down on the PEEP was started with lowering it to 10 Continue I's and Os negative side monitor urine output, we'll decrease the Lasix to 20 mg daily Patient is getting trial of steroids seems to be tolerating well thus hyperglycemia is some improvement in chest x-ray and oxygenation, there is some anecdotal reports coming from [place] it helps oxygenation however with the cost of prolonged shedding of viral particles we'll decrease it to once daily Aspiration pneumonia likely mixed bacterial and/or or gram-negative related, continue Zosyn Chronic right-sided weakness dysphagia and aphasia status post PEG tube COPD Insulin-dependent diabetes mellitus uncontrolled Hypertension hypertensive cardiovascular disease, will decrease Norvasc to 5 mg Chronic atrial fibrillation on anticoagulation Lovenox Critical care time 35 minutes Plan: Titrated oxygen down as as tolerated with high PEEP, will be lowered subsequently as noted above Anticoagulation. Lovenox twice a day Continue Norvasc to 5 mg, hold Lopressor and clonidine start hydralazine Lowering of IV steroids will improve for full glucose level as well Observe off of levo fed Continue tube feed Ventilator adjustment Continue to check inflammation tree labs for covid19 as needed Monitor sodium levels closely Continue respiratory and contact isolation Time with Patient: Greater than 30
[2020-01-14] MEDS: ENOXAPARIN 40 MG/0.4 ML SYRINGE SQ SCH ×2 (08:42→20:36)
[2020-01-14] MEDS: methylPREDNISolone SOD SUCCI 40 MG/ML 1 ML VIAL IV SCH (08:43)
[2020-01-14] MEDS: amLODIPine 5 MG TAB PO SCH (08:43)
[2020-01-14] MEDS: CHOLECALCIFEROL 1,000 UNIT TAB PEG/G-TUBE SCH (08:43)
[2020-01-14] MEDS: CHLORHEXIDINE GLUCONATE 15 ML CUP MUCOUS MEM SCH ×2 (08:43→20:36)
[2020-01-14] MEDS: FUROSEMIDE 10 MG/ML 2 ML VIAL IV SCH (08:44)
[2020-01-14] MEDS: PANTOPRAZOLE 40 MG/10 ML VIAL IV SCH (08:44)
[2020-01-14] MEDS: LISINOPRIL 2.5 MG TAB PEG/G-TUBE SCH (08:49)
[2020-01-14] MEDS: ZINC SULFATE 220 MG CAP PO SCH (09:21)
[2020-01-14] MEDS ORDERED: amLODIPine 5 MG TAB PEG/G-TUBE STA (10:26)
[2020-01-14 11:56] LABS: Glucose,Whole Blood 245 mg/dL (75-99)
--- NOTE | 2020-01-14 13:52 | P.PN ---
Subjective Progress Note Date: 01/14/20 Soledad Enriquez, is an 79-year-old female who resides at a senior living at this time will was noticed to have worsening mental status and persistent cough, patient started having elevated temperature up to 101 at that point she was sent to [facility] emergency room she had testing for influenza A and B which were negative she also had an instant test for Covid 19 which was positive she was admitted to telemetry floor she was started on IV Zithromax pulmonary and infectious disease consultation were requested. Patient also had evidence of dehydration with hypernatremia elevated sodium level at 151. Patient has a known history of multiple medical problems including history of stroke with right sided paralysis, history of aspiration patient has a PEG tube for feeding, history of insulin-dependent diabetes mellitus, history of hypertension, history of hyperlipidemia, and history of paroxysmal atrial fibrillation. On presentation patient had a temperature of 101 pulse of 82 respiration 18 blood pressure 119/63 and pulse ox of 91% on 4 L nasal cannula. White blood count was 4.8 chest x-ray revealed evidence of left basilar opacity. On 12/30/2019 patient was seen and examined on the medical floor she is somnolent responsive in no apparent distress there is low-grade fever temperature is 100.8 there is no chills no headache or dizziness no chest pain no shortness of breath no cough no nausea or vomiting no abdominal pain no diarrhea and no burning was urination. Nurse noticed some vaginal bleeding, hemoglobin is stable at 15. Pulse ox is 96% on 4 L nasal cannula , On 12/31/2019 patient was seen and examined on the medical floor she is somnolent responsive in no apparent distress, her fever is subsiding temperatures this morning 99 pulse ox is 92% on 4 L nasal cannula, patient is denying any complaints at this time however, she does not seem to be listening much to the questions, and she goes back to sleep fast. White blood count today is normal at 4.1 hemoglobin is 15.2 potassium is elevated at 5.8 On 01/01/2020 patient was seen and examined on the medical floor she is more alert and responsive today there is no fever or chills no headache or dizziness no chest pain no shortness of breath no cough no nausea or vomiting no abdominal pain no diarrhea and no urinary symptoms, she is receiving feeding through PEG tube at night, glucose level is elevated again, will increase Lantus dose to 25 units at bedtime, and continue was inserted into sliding scale. Patient is receiving oxygen via nasal cannula at 4 L her pulse ox is 92% patient does not s eem to be in any distress her temperature heart rates respiration rate and blood pressure are in normal range white blood count is 3.8 potassium 4.8 On 01/02/2020 patient was seen and examined on the medical floor she is alert and responsive in no apparent distress. This morning patient had an episode of shortness of breath with decreased O2 sat duration A team was called patient received IV Lasix Sands catheter was inserted chest x-ray was done. Currently patient is doing better pulse ox is 92% on 4 L nasal cannula. On 01/03/2020 patient was seen and examined on the medical floor she is alert responsive in no apparent distress, her pulse ox is 92% on 6 L nasal cannula she is afebrile blood pressure is 123/87 chest x-ray done yesterday reveals left lower lobe infiltrate and right perihilar infiltrates. Without significant improvement from prior x-rays. On 01/04/2020 patient was seen and examined on the medical floor she is more alert and responsive today he denies any pain or discomfort, her pulse ox was lower today and she was switched to a nonrebreather mask On 01/05/2020 patient was seen and examined on the medical floor, she is alert and responsive at this time, she is tolerating tube feeding well, she denied any pain or discomfort. On 01/06/2020 patient was seen and examined on the medical floor, she is alert responsive in no apparent distress she is answering a few questions with yes or no or nodding her head she is tolerating tube feeding well she is denying any pain or discomfort at this time, her temperature is 98.1 blood pressure 135/75 pulse ox 90% on nonrebreather mask. On 01/07/2020 Patient was seen and examined in the ICU. Around 7:00 am this morning patient was on the floor she was having worsening shortness of breath and using accessory muscles she was on nonrebreather mask and her O2 sat duration was 88% Dr. Caba pipe stem aligner was contacted patient was transferred to ICU she was intubated sedated and started on mechanical ventilation, she was also started on levophed for blood pressure support. On 01/08/2020 Patient was seen and examined in the ICU. She is intubated sedated maintained on mechanical ventilation, she is still on a small dose of Levophed. She is receiving tube feeding via PEG tube. Her ABG reveals a pH of 7.4 to pCO2 45 by mouth to 59 FiO2 is 70% On 01/09/2020 patient was seen and examined in the ICU she remains intubated sedated maintained on mechanical ventilation, she remains on a small dose of levophed for pressure support. ABG reveals a pH of 7.4 pCO2 47 PO2 77 with FiO2 of 70% her temperature is 90.8 pulse 69 respiration 27 blood pressure 112/70 On 01/10/2020 patient was seen and examined in the ICU she is intubated sedated maintained on mechanical ventilation, temperature is 97.9 pulse 62 respiration 20 blood pressure 121/73 ABG reveals pH of 7.39 pCO2 52 by mouth to 59 FiO2 is 60% no significant change in condition since yesterday patient is receiving tube feeding. She was not seen by critical care yesterday due to personal reasons per nurse. At this time will change consult for pulmonary and critical care to Dr. Perez. On 01/11/2020 Patient was seen and examined in the ICU she is intubated, sedated, maintained on mechanical ventilation. there is no fever or chills. ABs reveals PH 7.46 PCO2 51 PO2 58 FIO@ 100 % On 01/12/2020 patient was seen and examined in the ICU she is intubated sedated maintained on mechanical ventilation she is not on any pressure support there is no fever or chills she is receiving tube feeding. On 01/13/2020 patient was seen and examined in the ICU she is intubated sedated maintained on mechanical ventilation, she is maintained on 2 feeding glucose is elevated, dose of Levemir will be increased to 35 units daily, continue with sliding scale. ABG reveals pH 7.5 one pCO2 46 by mouth to 90 FiO2 of 60% On 01/14/2020 patient was seen and examined in the ICU she is intubated sedated maintained on mechanical ventilation she is also maintained on PEG tube feeding she had episodes of bradycardia cardiology were consulted and beta herminio were discontinued and patient was started on Norvasc patient also is having some minimal elevation in her liver enzymes pravastatin was discontinued. Otherwise no significant change in her condition patient remains on mechanical ventilation no weaning trials are scheduled for today. Objective - Vital Signs Vital signs: Vital Signs Temp 98.7 F 01/14/20 08:00 Pulse 55 L 01/14/20 10:00 Resp 16 01/14/20 10:00 BP 147/72 01/14/20 10:00 Pulse Ox 95 01/14/20 10:00 Intake & Output 01/13/20 01/14/20 01/14/20 18:59 06:59 18:59 Intake Total 3711.301 735.013 129.753 Output Total 860 540 45 Balance 2851.301 195.013 84.753 Weight 85.9 kg 85.2 kg Intake: IV 110 120 10 NS 110 120 10 Intake, IV Titration 203.301 105.013 83.753 Amount Piperacillin-Tazobactam 3 50.0 .375 gm In Sodium Chloride 0.9% 100 ml @ 25 mls/hr IVPB Q8HR [facility] Rx# :[id number] Propofol 1,000 mg In 153.301 105.013 83.753 Empty Bag 1 bag @ Titrate IV .Q0M [facility] Rx#: [id number] Tube Feeding 338 420 36 Other 3060 90 Output: Urine 860 540 45 Other: Voiding Method Indwelling Catheter Indwelling Catheter - Exam In general patient is intubated sedated maintained on mechanical ventilation HEENT head normocephalic and atraumatic Neck is supple no JVD no goiter no lymphadenopathy Chest exam reveals a few scattered crackles no wheezing Cardiac exam reveals regular heart sounds no gallops no murmurs Abdomen is soft nontender no organomegaly with normal bowel sounds Extremity exam reveals no edema no cyanosis or clubbing - Labs CBC & Chem 7: 01/14/20 05:31 01/14/20 10:45 Labs: Abnormal Lab Results - Last 24 Hours (Table) 01/13/20 01/13/20 01/13/20 Range/Units 05:05 17:07 19:52 Lymphocytes # (1.0-4.8) k/uL ABG pH (7.35-7.45) ABG pO2 (83-108) mmHg ABG HCO3 (21-25) mmol/L ABG Total CO2 (19-24) mmol/L Carbon Dioxide (22-30) mmol/L BUN (7-17) mg/dL Glucose (74-99) mg/dL POC Glucose (mg/dL) 232 H 230 H (75-99) mg/dL Ferritin 462.4 H (10.0-291.0) ng/mL AST (14-36) U/L ALT (4-34) U/L Creatine Kinase (30-135) U/L Total Protein (6.3-8.2) g/dL Albumin (3.5-5.0) g/dL 01/14/20 01/14/20 01/14/20 Range/Units 00:00 04:04 04:49 Lymphocytes # (1.0-4.8) k/uL ABG pH 7.55 H (7.35-7.45) ABG pO2 79 L (83-108) mmHg ABG HCO3 36 H (21-25) mmol/L ABG Total CO2 37 H (19-24) mmol/L Carbon Dioxide (22-30) mmol/L BUN (7-17) mg/dL Glucose (74-99) mg/dL POC Glucose (mg/dL) 232 H 278 H (75-99) mg/dL Ferritin (10.0-291.0) ng/mL AST (14-36) U/L ALT (4-34) U/L Creatine Kinase (30-135) U/L Total Protein (6.3-8.2) g/dL Albumin (3.5-5.0) g/dL 01/14/20 01/14/20 01/14/20 Range/Units 05:31 05:31 08:18 Lymphocytes # 0.8 L (1.0-4.8) k/uL ABG pH (7.35-7.45) ABG pO2 (83-108) mmHg ABG HCO3 (21-25) mmol/L ABG Total CO2 (19-24) mmol/L Carbon Dioxide 34 H (22-30) mmol/L BUN 30 H (7-17) mg/dL Glucose 270 H (74-99) mg/dL POC Glucose (mg/dL) 239 H (75-99) mg/dL Ferritin (10.0-291.0) ng/mL AST 65 H (14-36) U/L ALT 98 H (4-34) U/L Creatine Kinase <20 L (30-135) U/L Total Protein 5.4 L (6.3-8.2) g/dL Albumin 2.6 L (3.5-5.0) g/dL 01/14/20 Range/Units 11:54 Lymphocytes # (1.0-4.8) k/uL ABG pH (7.35-7.45) ABG pO2 (83-108) mmHg ABG HCO3 (21-25) mmol/L ABG Total CO2 (19-24) mmol/L Carbon Dioxide (22-30) mmol/L BUN (7-17) mg/dL Glucose (74-99) mg/dL POC Glucose (mg/dL) 245 H (75-99) mg/dL Ferritin (10.0-291.0) ng/mL AST (14-36) U/L ALT (4-34) U/L Creatine Kinase (30-135) U/L Total Protein (6.3-8.2) g/dL Albumin (3.5-5.0) g/dL Assessment and Plan Plan: #1 pneumonia likely related to COVID 19 viral pneumonitis, followed by pulmonary and infectious disease, condition has worsened over night patient is currently in ICU maintained on mechanical ventilation #2 severe hypernatremia, on admission corrected #3 mental status changes likely related to hypernatremia and metabolic encephalopathy related to infection #4 acute hypoxic respiratory failure related to pneumonia, requiring oxygen at 4 L nasal cannula at this time #5 underlying history of hypertension #6 underlying history of COPD #7 underlying history of insulin-dependent diabetes mellitus, insulin dose adjusted today Levemir increased to 35 units daily #8 underlying history of stroke with right sided paralysis #9 chronic dysphagia and aspiration requiring PEG tube feeding #10 underlying history of atrial fibrillation maintained on Xarelto #11 vaginal bleeding, at this time will monitor closely, will check daily CBC, and monitor for amount of bleeding. Once her current illness has subsided, will investigate further with pelvic ultrasound and DRIVER LICENSE TECHNICIAN consult. #12 hyperkalemia, corrected At this time patient is into in the intensive care unit, no change in condition since yesterday She is intubated sedated maintained on mechanical ventilation Consultation for pulmonary and infectious disease requested in the emergency room and are following patient's Will follow closely Prognosis is guarded due to multiple underlying comorbid conditions
--- NOTE | 2020-01-14 14:01 | P.CRDCN ---
History of Present Illness History of present illness: This is Dr. WEBBER dictating a consult note on this patient This is based on chart review and inspection of the patient only and discussion with the nurse Impression: Patient admitted with Covid and its complications Sinus bradycardia, medication related Hypertension Plan: Stop clonidine, stop metoprolol Increase amlodipine to 10 mg by mouth daily If her blood pressure remains reasonably controlled I will stop IV hydralazine administration more History of present illness: Patient admitted with COVID and its competitions Carotid consulted on account of hypertension and bradycardia Patient was on metoprolol and on clonidine. I discontinued both these medications. Her heart is gone down into the 40s Her blood pressure was elevated significantly increase the dose of amlodipine to 10 mg daily and given an extra 5 mg to make up for the dose According to the notes she has no cardiac symptoms suggest chest discomfort Review of systems Not available On examination Vitals 157/74 mmHg pulse rate in the 40s and 50s, afebrile 98.7F Review of data White count 6.1 hemoglobin 13.4 platelet count 188,000 Sodium 141 potassium 3.6 chloride 103 bicarbonate 34 BUN 30 Creatinine 0.53 elevated glucose AST 64-year-old T 98 Past Medical History Past Medical History: Atrial Fibrillation, Asthma, COPD, CVA/TIA, Diabetes Mellitus, Hyperlipidemia, Hypertension, Osteoarthritis (OA) Additional Past Medical History / Comment(s): currently having leakage and tenderness around peg tube site,hx stroke with weakness of legs, unable to bear wt- [facility] uses yael lift/wheelchair, hypoxia, [id number] feeding tube, bowel and urine incontinence (uses depends), slurred speach,anem ia,glaucoma,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 History of Any Multi-Drug Resistant Organisms: None Reported Past Surgical History: Hysterectomy Additional Past Surgical History / Comment(s): not known at [facility],peg insertion Past Anesthesia/Blood Transfusion Reactions: No Reported Reaction, Unable to Obtain Additional Past Anesthesia/Blood Transfusion Reaction / Comment(s): spouse thinks no problems that he knows of(poor historian), no info at ECF Past Psychological History: No Psychological Hx Reported Smoking Status: Former smoker Past Alcohol Use History: None Reported Additional Past Alcohol Use History / Comment(s): STARTED SMOKING AT AGE 17,SMOKED LESS THAN 1 PPD, QUIT 2001. Past Drug Use History: None Reported - Past Family History Mother Family Medical History: Unable to Obtain Additional Family Medical History / Comment(s): no info at [facility] Father History Unknown: Yes Medications and Allergies Home Medications Medication Instructions Recorded Confirmed Type amLODIPine [Norvasc] 10 mg PEG/G-TUBE DAILY 01/24/16 12/28/19 History Furosemide [Lasix] 20 mg PEG/G-TUBE DAILY 03/31/16 12/28/19 History Lisinopril [Zestril] 10 mg PEG/G-TUBE DAILY 07/22/17 12/28/19 History Pravastatin Sodium [Pravachol] 10 mg PEG/G-TUBE HS@199907/22/17 12/28/19 History Folic Acid 0.8 mg PEG/G-TUBE HS@199902/23/19 12/28/19 History Metoprolol Tartrate [Lopressor] 50 mg PEG/G-TUBE BID 02/23/19 12/28/19 History Ferrous Sulfate [Iron (65 MG 325 mg PEG/G-TUBE HS@199910/05/19 12/28/19 History Elemental)] cloNIDine HCL [Catapres] 0.1 mg PEG/G-TUBE HS@199910/05/19 12/28/19 History glipiZIDE [Glucotrol] 5 mg PEG/G-TUBE DAILY 10/05/19 12/28/19 History Rivaroxaban [Xarelto] 10 mg PEG/G-TUBE HS@199910/06/19 12/28/19 History Potassium Chloride Oral Liquid 10 meq PEG/G-TUBE DAILY 11/07/19 12/28/19 History Cholecalciferol [Vitamin D3 (25 2,000 unit PEG/G-TUBE DAILY 12/28/19 12/28/19 History Mcg = 1000 Iu)] Insulin Glargine,Hum.rec.anlog 18 unit SQ HS@199912/28/19 12/28/19 History [Lantus Solostar] Insulin Lispro [humaLOG Kwikpen] 2 unit SQ AC-TID@0700,1100,16 12/28/19 12/28/19 History Insulin Lispro [humaLOG Kwikpen] See Protocol SQ ACHS 12/28/19 12/28/19 History Allergies Allergy/AdvReac Type Severity Reaction Status Date / Time No Known Allergies Allergy Verified 12/28/19 17:40 Physical Exam Vitals: Vital Signs Temp Pulse Resp BP Pulse Ox 01/14/20 10:00 55 L 16 147/72 95 01/14/20 09:00 45 L 16 157/74 96 01/14/20 08:00 98.7 F 46 L 16 142/77 98 01/14/20 07:00 58 L 16 123/77 99 01/14/20 06:00 53 L 16 134/77 96 01/14/20 05:00 53 L 20 125/82 96 01/14/20 04:00 97.8 F 51 L 20 136/81 97 01/14/20 03:00 50 L 20 120/74 97 01/14/20 02:00 55 L 20 153/78 96 01/14/20 01:00 55 L 20 156/87 96 01/14/20 00:00 97.7 F 52 L 20 128/78 96 01/13/20 23:14 54 L 20 119/72 96 01/13/20 23:00 52 L 20 125/73 96 01/13/20 22:00 54 L 20 98/67 96 01/13/20 21:00 56 L 20 144/79 97 01/13/20 20:00 97.7 F 59 L 20 158/84 96 01/13/20 19:00 60 20 153/79 97 01/13/20 18:00 58 L 20 145/75 96 01/13/20 17:00 98.2 F 70 20 151/77 96 01/13/20 16:00 56 L 20 150/79 95 01/13/20 15:00 52 L 20 135/70 96 Intake and Output 01/13/20 01/14/20 01/14/20 22:59 06:59 14:59 Intake Total 507.274 513.416 129.753 Output Total 355 325 45 Balance 152.274 188.416 84.753 Intake: IV 80 80 10 NS 80 80 10 Intake, IV Titration 87.274 93.416 83.753 Amount Propofol 1,000 mg In 87.274 93.416 83.753 Empty Bag 1 bag @ Titrate IV .Q0M [facility] Rx#: [id number] Tube Feeding 280 280 36 Other 60 60 Output: Urine 355 325 45 Other: Voiding Method Indwelling Catheter Indwelling Catheter Weight 85.2 kg Results 01/14/20 05:31 01/14/20 10:45 Cardiac Enzymes 01/14/20 Range/Units 05:31 AST 65 H (14-36) U/L Lactate Dehydrogenase 604 (313-618) U/L CBC 01/14/20 Range/Units 05:31 WBC 6.1 (3.8-10.6) k/uL RBC 4.35 (3.80-5.40) m/uL Hgb 13.4 (11.4-16.0) gm/dL Hct 41.6 (34.0-46.0) % Plt Count 188 (150-450) k/uL Comprehensive Metabolic Panel 01/13/20 01/14/20 01/14/20 Range/Units 14:05 05:31 10:45 Sodium 141 (137-145) mmol/L Potassium 3.8 3.6 3.7 (3.5-5.1) mmol/L Chloride 103 (98-107) mmol/L Carbon Dioxide 34 H (22-30) mmol/L BUN 30 H (7-17) mg/dL Creatinine 0.53 (0.52-1.04) mg/dL Glucose 270 H (74-99) mg/dL Calcium 9.5 (8.4-10.2) mg/dL AST 65 H (14-36) U/L ALT 98 H (4-34) U/L Alkaline Phosphatase 79 (38-126) U/L Total Protein 5.4 L (6.3-8.2) g/dL Albumin 2.6 L (3.5-5.0) g/dL Current Medications Generic Name Dose Route Start Last Admin Trade Name Freq PRN Reason Stop Dose Admin Acetaminophen 650 mg 12/28/19 19:11 01/06/20 10:18 Tylenol Tab PO 650 mg Q6HR PRN Administration Mild Pain or Fever > 100.5 Albuterol Sulfate 2 puff 12/28/19 20:00 01/14/20 11:49 Ventolin Hfa Inhaler INHALATION 2 puff RT-QID [facility] Administration Amlodipine Besylate 10 mg 01/15/20 09:00 Norvasc PO DAILY [facility] Chlorhexidine Gluconate 15 ml 01/07/20 09:00 01/14/20 08:43 Peridex MUCOUS MEM 15 ml BID [facility] Administration Cholecalciferol 2,000 unit 12/29/19 09:00 01/14/20 08:43 Vitamin D3 (25 Mcg = 1000 Iu) PEG/G-TUBE 2,000 unit DAILY [facility] Administration Enoxaparin Sodium 40 mg 01/07/20 21:00 01/14/20 08:42 Lovenox SQ 40 mg BID [facility] Administration Ferrous Sulfate 300 mg 01/04/20 20:00 01/13/20 19:56 Feosol PEG/G-TUBE 300 mg HS@2000 [facility] Administration Furosemide 20 mg 01/14/20 09:00 01/14/20 08:44 Lasix IV 20 mg DAILY [facility] Administration Hydralazine HCl 10 mg 01/14/20 08:19 Apresoline IVP Q4H PRN Blood Pressure - High Norepinephrine Bitartrate 4 mg 254 mls @ 15.907 mls/hr 01/07/20 07:15 01/14/20 00:18 / Sodium Chloride IV Not Given .[id number] [facility] Protocol 0.05 MCG/KG/MIN Propofol 1,000 mg/ IV Solution 100 mls @ 0 mls/hr 01/07/20 07:45 01/14/20 09:24 IV 20 mcg/kg/min .Q0M [facility] 10.224 mls/hr Administration Protocol Titrate Piperacillin Sod/Tazobactam 100 mls @ 25 mls/hr 01/08/20 00:00 01/14/20 08:41 Sod 3.375 gm/ Sodium Chloride IVPB 25 mls/hr Q8HR [facility] Administration Insulin Aspart 0 unit 01/13/20 12:00 01/14/20 13:28 Novolog SQ 3 unit Q4H [facility] Administration Protocol Insulin Detemir 35 unit 01/13/20 21:00 01/13/20 20:03 Levemir SQ 35 unit HS [facility] Administration Lisinopril 2.5 mg 01/08/20 12:15 01/14/20 08:49 Zestril PEG/G-TUBE Not Given DAILY [facility] Methylprednisolone Sodium Succinate 40 mg 01/14/20 09:00 01/14/20 08:43 Solu-Medrol IV 40 mg DAILY [facility] Administration Miscellaneous Information 1 each 01/08/20 06:10 Potassium Per Protocol MISCELLANE DAILY PRN Per Protocol Protocol Naloxone HCl 0.2 mg 12/28/19 19:11 Narcan IV Q2M PRN Opioid Reversal Pantoprazole Sodium 40 mg 01/07/20 09:00 01/14/20 08:44 Protonix IV 40 mg DAILY [facility] Administration Sodium Chloride 20 ml 01/09/20 15:36 Saline Flush IV Q4HR PRN PICC Line Sodium Chloride 10 ml 01/16/20 09:00 Saline Flush IV WEEKLY [facility] Sodium Chloride 10 ml 01/09/20 15:36 Saline Flush IV Q4HR PRN PICC Line Zinc Sulfate 220 mg 12/30/19 09:00 01/14/20 09:21 Orazinc PO 220 mg DAILY [facility] Administration Intake and Output 01/13/20 01/14/20 01/14/20 22:59 06:59 14:59 Intake Total 507.274 513.416 129.753 Output Total 355 325 45 Balance 152.274 188.416 84.753 Intake: IV 80 80 10 NS 80 80 10 Intake, IV Titration 87.274 93.416 83.753 Amount Propofol 1,000 mg In 87.274 93.416 83.753 Empty Bag 1 bag @ Titrate IV .Q0M [facility] Rx#: [id number] Tube Feeding 280 280 36 Other 60 60 Output: Urine 355 325 45 Other: Voiding Method Indwelling Catheter Indwelling Catheter Weight 85.2 kg 01/14/20 05:31 01/14/20 10:45
[2020-01-14 16:32] LABS: Glucose,Whole Blood 209 mg/dL (75-99)
--- NOTE | 2020-01-14 17:16 | PN ---
PROGRESS NOTE DATE OF SERVICE: 01/14/2020 REASON FOR FOLLOWUP: Pneumonia. INTERVAL HISTORY: The patient is currently afebrile. The patient remains to be intubated on the vent. He is hemodynamically stable. FiO2 is currently at 40%. No significant purulent secretions through the ET or any diarrhea reported. PHYSICAL EXAMINATION: Blood pressure 152/83 with a pulse of 81. Temperature 97.9. She is 94% on 40% FiO2. General description is an elderly female lying in bed in no distress. Respiratory system: Unlabored breathing. Clear to auscultation anteriorly. Heart S1, S2. Regular rate and rhythm. Abdomen soft, no distention. LABS: Hemoglobin 13.4, white count 6.9, BUN of 30, creatinine 0.53. DIAGNOSTIC IMPRESSION AND PLAN: Patient with acute respiratory failure which is multifactorial in this patient with possible component of aspiration pneumonia. She has been broadly covered with Zosyn to continue and monitor clinical course closely. Continue supportive care. MMODL / IJN: [id number] /
[2020-01-14] MEDS: FERROUS SULFATE ORAL ELIXIR 300 MG/5 ML CUP PEG/G-TUBE SCH (20:36)
[2020-01-14] MEDS: INSULIN DETEMIR (LEVEMIR) 100 UNIT/ML SYR SQ SCH (20:37)
[2020-01-14 20:55] LABS: Glucose,Whole Blood 236 mg/dL (75-99)
[2020-01-15] MEDS: PIPERACILLIN-TAZOBACTAM 3.375 GM in SODIUM CHLORIDE 0.9% 100 ML IVPB SCH ×3 (00:17→16:28)
[2020-01-15 00:28] LABS: Glucose,Whole Blood 206 mg/dL (75-99)
[2020-01-15] MEDS: INSULIN ASPART (NovoLOG) 100 UNIT/ML VIAL SQ SCH ×6 (00:30→20:40)
[2020-01-15] MEDS: PROPOFOL 1,000 MG in EMPTY BAG 1 BAG IV SCH ×4 (02:45→21:44)
[2020-01-15 05:08] LABS: ABG Base Excess 13.1 mmol/L; ABG HCO3 37 mmol/L (21-25); ABG PCO2 52 mmHg (35-45); ABG PH 7.46 (7.35-7.45); ABG TCO2 39 mmol/L (19-24); Allen Test Performed? Yes
[2020-01-15 05:15] LABS: ABG PO2 52 mmHg (83-108)
[2020-01-15 05:19] LABS: Glucose,Whole Blood 153 mg/dL (75-99)
[2020-01-15 05:36] LABS: Basophils % (A) 0 %; Eosinophils # (A) 0.1 k/uL (0-0.7); Eosinophils % (A) 1 %; HCT 38.2 % (34.0-46.0); HGB 12.6 gm/dL (11.4-16.0); Hypochromasia Slight; Lymphocytes # (A) 1.3 k/uL (1.0-4.8); Lymphocytes % (A) 20 %; MCH 31.2 pg (25.0-35.0); MCHC 33.1 g/dL (31.0-37.0); MCV 94.4 fL (80.0-100.0); Mean Platelet Volume 10.2; Monocytes # (A) 0.4 k/uL (0-1.0); Monocytes % (A) 7 %; Neutrophils # (A) 4.5 k/uL (1.3-7.7); Neutrophils % (A) 70 %; Platelet Count 167 k/uL (150-450); RBC 4.04 m/uL (3.80-5.40); RDW 14.4 % (11.5-15.5); WBC 6.4 k/uL (3.8-10.6)
[2020-01-15 05:54] LABS: ALT 64 U/L (4-34); AST 41 U/L (14-36); African American GFR (CKD) >90 (>60 ml/min/1.73 sqM); Albumin 2.2 g/dL (3.5-5.0); Alkaline Phosphatase 58 U/L (38-126); Anion Gap 1 mmol/L; Blood Urea Nitrogen 26 mg/dL (7-17); C Reactive Protein <5.0 mg/L (<10.0); Calcium 9.2 mg/dL (8.4-10.2); Carbon Dioxide 36 mmol/L (22-30); Chloride 101 mmol/L (98-107); Creatine Kinase <20 U/L (30-135); Glucose 158 mg/dL (74-99); LDH 713 U/L (313-618); Non-African American GFR(CKD) >90 (>60 ml/min/1.73 sqM); Potassium 3.5 mmol/L (3.5-5.1); Sodium 138 mmol/L (137-145); Total Bilirubin 0.5 mg/dL (0.2-1.3); Total Protein 4.7 g/dL (6.3-8.2)
--- NOTE | 2020-01-15 06:33 | XR ---
EXAMINATION TYPE: XR chest 1V portable DATE OF EXAM: 01/15/2020 HISTORY: Mechanically ventilated. REFERENCE: Previous study dated 01/14/2020. FINDINGS: The patient's ET tube and left basilic PICC line remain in place, unchanged in appearance. The heart remains mildly enlarged. There are small, bilateral effusions. There are bibasilar infiltra donavan. The overall appearance may have worsened slightly. IMPRESSION: SLIGHT WORSENING TO THE PATIENT'S BIBASILAR INFILTRATES.
[2020-01-15] MEDS: POTASSIUM CHLORIDE ER 20 MEQ TAB.ER PO SCH ×3 (07:05→12:13)
[2020-01-15] MEDS: NOREPINEPHRINE 4 MG in SODIUM CHLORIDE 0.9% 250 ML IV SCH (07:39)
[2020-01-15] MEDS: ALBUTEROL HFA INHALER INHALATION SCH ×4 (07:56→20:13)
[2020-01-15 08:10] LABS: Glucose,Whole Blood 128 mg/dL (75-99)
[2020-01-15] MEDS: FUROSEMIDE 10 MG/ML 2 ML VIAL IV SCH (08:10)
[2020-01-15] MEDS: methylPREDNISolone SOD SUCCI 40 MG/ML 1 ML VIAL IV SCH (08:10)
[2020-01-15] MEDS: ENOXAPARIN 40 MG/0.4 ML SYRINGE SQ SCH ×2 (08:10→20:40)
[2020-01-15] MEDS: CHOLECALCIFEROL 1,000 UNIT TAB PEG/G-TUBE SCH (08:11)
[2020-01-15] MEDS: LISINOPRIL 2.5 MG TAB PEG/G-TUBE SCH (08:11)
[2020-01-15] MEDS: amLODIPine 10 MG TAB PO SCH (08:11)
[2020-01-15] MEDS: CHLORHEXIDINE GLUCONATE 15 ML CUP MUCOUS MEM SCH ×2 (08:11→20:41)
[2020-01-15] MEDS: PANTOPRAZOLE 40 MG/10 ML VIAL IV SCH (08:11)
[2020-01-15] MEDS: ZINC SULFATE 220 MG CAP PO SCH (08:11)
--- NOTE | 2020-01-15 11:37 | P.PN ---
Subjective Progress Note Date: 01/15/20 Principal diagnosis: Acute hypoxic respiratory failure on ventilator COVID 19 pneumonia Aspiration pneumonia likely mixed bacterial and/or or gram-negative related Chronic right-sided weakness dysphagia and aphasia status post PEG tube COPD Insulin-dependent diabetes mellitus uncontrolled Hypertension hypertensive cardiovascular disease Chronic atrial fibrillation on anticoagulation off of his Xeralto, has been initiated on Lovenox twice a day 01/15/2020, patient seen eval examined during the rounds labs reviewed medications reviewed care plan discussed with the staff at length, patient remains on full ventilator support with suctioning and movement she desaturates however similar episodethis morning at the time of chest x-ray when she was repositioned suction and transient desaturation happens arterial blood gas was done at the same time however after that on 25 mics of propofol she has been stable saturation have been 98-99% plan is to come down the oxygen to 40% will keep monitor PPEP 10 and if oxygen remains stable on 40% will go down to 8 by and of the day, hemodynamic status stable blood pressure is stable and did not require IV hydralazine, heart rate is improve into high 50s and low 60s, patient is off of clonidine and Lopressor now remains off of vasopressors, tolerating the feed well, urine output is good arterial blood gases reviewed adequate ventilation chest x-ray reviewed overall essentially stable with small bilateral pleural effusion, overall plan is to come down to oxygen of 40% and PEEP of 5 and next 24-48 hours then will initiate spontaneous breathing trials keep ins and outs even are negative side continue current dose of Solu-Medrol and continue antibiotics critical care time 35 minutes 01/14/2020, patient seen eval reexamined during the rounds labs reviewed medications reviewed, chest x-ray reviewed as well, patient remains sedated with propofol drip 25 mics, she is bradycardic heart rate is 40-45 with slightly elevated blood pressure 160-170 breathing with vent rate was initially 20 have been reduced to 16, tidal volume is 450 keep is 15 has been lowered down to 10 saturation is 95-96% chest x-ray reviewed right lower lobe infiltrate and small effusions seen overall lung parenchyma and infiltrate appears stable and continued to improve, patient is tolerating every feed very well labs reviewed CBC within normal limits chemistry revealed ABG combination of metabolic and respiratory alkalosis ventilator has been adjusted Lasix have been lowered down to once a day some contribution from his steroids presents which will be reduced to 40 daily, patient will be observed how she does with lower PEEP, we will s tart hydralazine IV for blood pressure control, continue to hold Lopressor and also hold clonidine we will get cardiovascular services opinion consultation, patient has been tolerating tube feed very well respiratory secretions are minimal adequate urine output has been present 01/13/2020, patient seen eval reexamined during the rounds labs reviewed medications reviewed radiographic studies reviewed as well patient FiO2 has been brought down to 60% she is on 15 of PEEP, her oxygen saturation 97% she is off of vasopressors, she is on 30 mics of propofol somewhat bradycardic will decrease of propofol to 20 mics, we'll continue to bring down the oxygen to 40% as tolerated in during next 24 hours, then will come on down and PEEP. Respiratory secretions are minimal to feed is tolerating well mental status not much change, developed bradycardia her beta blockers are being held, her chest x-ray showing small pleural effusion bilaterally and basal atelectasis and consolidation, tubes are stable, she remains on Solu-Medrol 40 every 12 hourly and Lovenox also 40 q 12, it appears that Solu-Medrol has been helping in improving and able to come down on oxygen, peak airway pressure 30, urine output has been adequate patient has some component of respiratory and metabolic alkalosis, we will lower down the Lasix to 20 mg daily also will decrease the tidal volume to 450, care time spent 35 minuteto 01/12/2020, patient seen and evaluated today care plan discussed with the nurse at length radiographic studies and lab studies reviewed, patient remains on assist control mode rate of 20 breathing about 24 26th of patient remains at PEEP of 10 FiO2 of 80% oxygen saturation are 90-94% within increase the PEEP to 15 as blood pressure is stable and titrated oxygen down to 70-60% next 24 hours chest x-ray reviewed continued to show same pattern but overall condition appears to improve to feed as tolerated very well, CBC is normal arterial blood gases history of hypercapnic hypoxic respiratory failure, bicarb is slightly going up the patient seems to be tolerating steroid well however sugars are higher side remains on insulin 01/11/2020, patient seen eval examined during the rounds labs reviewed medications reviewed radiographic studies reviewed as well patient remains sedated with 40 mics of propofol, she'll decrease it to 30 mics off of levo fed drip, patient did start some levo fed last night but now off, noted that FiO2 has been escalated to 100% and PEEP is down to 5, we'll increase PEEP back to 10 and titrated oxygen down as tolerated to bring it down to goal of 70% in next 24 hours slowly will decrease his sedation as well, 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, left-sided slight worsening has been noted with small left- sided pleural effusion likely fluid overload some of the fluid is present on the right side as well patient medications have been reviewed, patient is on Norvasc 10 mg along with Catapres and Ogestrel, patient has been started on IV steroids given hypoxia And a Difficult Reports from [place] That Steroids Have Been Helpful in Improving Oxygenation but at the Cost of Increasing Shedding Time However, Eisenmenger's Slightly Positive Today, Patient Has Received Lasix, ABG Reviewed pH Is 7.46 PCO2 Is 51 PO2 Is 58 That Is on PEEP of 5 and 100% Oxygen, Her LDH Is up to 926 Ferritin C-Reactive Protein and IL6 Levels Are Pending 01/10/2020, patient seen and evaluated examined during the rounds labs reviewed medications reviewed care plan discussed with RN, patient FiO2 has been down to 60% and peak airway pressures are stable, patient remains on assist control mode rate of 20 breathing about 25-28 oxygen saturation 93% she is 10, spontaneous tidal volume on about 400 500 range patient has been getting his spontaneous breathing trial and she is been sedated with propofol drip very small dose of levofed is still going to come patient is on broad-spectrum antibiotics to feed is going on patient is on half normal saline as well chest x-ray shows diffuse infiltrate stable lines 01/08/2020, patient seen and evaluated examined in ICU patient remains on current ventilator with full ventilatory response be clear pressure slightly better than yesterday ranging from 30-32, patient is down to 70% now PEEP of 10 assist control is 20 breathing about 25-26 tidal volume is 400 this morning ABG reviewed ventilation is adequate slight hypoxia was noted but however sats at that time when the gas were done were 91-92% since that time patient has received 20 of Lasix and put out about 550 mL of urine and saturation is improved to 96%, patient is afebrile, patient would need a PICC line tomorrow, remains on propofol dose has been escalated today, tolerating to feed well, sugars are in low 200 range, LDH is 817 C-reactive protein is 25.2 on the they are showing downward trend her plan discussed with the staff at length will i ncrease her Lasix to 20 mg daily will keep patient on 70% and PEEP of 10 and today attempt to titrate oxygen down again tomorrow chest x-ray showed some improved aviation compared to prior study stable ET tube, and seems to tolerating Lasix well any significant compromise in hemodynamic status critical care time spent 35 minutes 01/07/2020, patient does live increase respiratory distress earlier this morning oxygen remains very poor saturation dropped down into 70s to 80s percent, pO2 was only 46 patient was intubated and placed in ICU where patient was seen eval reexamined, patient remains on levo fed drip on 5 mics, her hemodynamic is slightly better systolic blood pressure ranging from 100 210, patient is on propofol 20, vent setting include assist control of 20 tidal volume of 400, PEEP of 10, FiO2 have been lowered down to 90%, ABG and laboratory data data reviewed chest x-ray reviewed mild bilateral interstitial infiltrate consistent with viral pneumonia, patient is being started on Lovenox twice a day continued on tube feed will increase gentle hydration, blood glucose is running slightly high will increase the Levemir, critical care time spent 45 minutes 01/06/2020, patient seen and evaluated examined remains on nonrebreather mask still have problems associated with shortness of breath, care plan discussed with RN will continue current plan of care patient can be started on as needed breathing treatments will continue to gently diurese 01/05/2020, patient seen and evaluated examined remains on nonrebreather mask, nonverbal and noncommunicative essentially no significant change in neurological condition, she remained afebrile with stable hemodynamics her oxygen saturations improved to 96% on repeat nonrebreather mask 01/04/2020, patient laying on the bed on 100% nonrebreather mask and breathing is slightly short of breath, patient is on bronchodilator along with antibiotics, has been on Lasix as well, patient remains on Zosyn, labs reviewed white cell count is normal, labs reviewed, glucose is 342, BUN/creatinine is 25 and 0.7, stool for C. difficile is negative 01/02/2020, patient seen eval examined during the rounds patient has a rapid response this morning with the shortness of breath she however responded well with Lasix, Sands's catheter has been placed, shortness of breath have improved though, on 4 L saturation is 92% low-grade temperature of 99 is present, her chest x-ray assistive of the left lower lobe pneumonia and right perihilar in filtrate prominent lung markings likely fluid overload, Objective - Vital Signs Vital signs: Vital Signs Temp 97.7 F 01/15/20 04:00 Pulse 60 01/15/20 07:00 Resp 16 01/15/20 07:00 BP 121/70 01/15/20 07:00 Pulse Ox 99 01/15/20 07:00 Intake & Output 01/14/20 01/15/20 01/15/20 18:59 06:59 18:59 Intake Total 806.428 573.379 56.454 Output Total 1395 950 50 Balance -588.572 -376.621 6.454 Weight 83.7 kg Intake: IV 120 120 10 NS 120 120 10 Intake, IV Titration 175.428 93.379 46.454 Amount Propofol 1,000 mg In 175.428 93.379 46.454 Empty Bag 1 bag @ Titrate IV .Q0M [facility] Rx#: [id number] Tube Feeding 421 300 Other 90 60 Output: Urine 1395 950 50 Other: Voiding Method Indwelling Catheter Indwelling Catheter # Bowel Movements 1 - Exam - Neck Neck: no lymphadenopathy, no stridor - Respiratory Scattered rhonchi throughout, full ventilator support - Cardiovascular Regular rhythm and rate. S1 and S2 present, negative for S3, gallop or murmur. Trace edema to her bilateral lower extremities. - Gastrointestinal Abdomen soft and nondistended. - Integumentary Skin is warm and dry. No clubbing or cyanosis is present. Integumentary: no rash - Neurologic Sedated with propofol drip - Labs CBC & Chem 7: 01/15/20 04:44 01/15/20 04:44 Labs: Abnormal Lab Results - Last 24 Hours (Table) 01/14/20 01/14/20 01/14/20 Range/Units 11:54 16:31 20:53 ABG pH (7.35-7.45) ABG pCO2 (35-45) mmHg ABG pO2 (83-108) mmHg ABG HCO3 (21-25) mmol/L ABG Total CO2 (19-24) mmol/L ABG O2 Saturation (94-97) % Carbon Dioxide (22-30) mmol/L BUN (7-17) mg/dL Creatinine (0.52-1.04) mg/dL Glucose (74-99) mg/dL POC Glucose (mg/dL) 245 H 209 H 236 H (75-99) mg/dL AST (14-36) U/L ALT (4-34) U/L Lactate Dehydrogenase (313-618) U/L Creatine Kinase (30-135) U/L Total Protein (6.3-8.2) g/dL Albumin (3.5-5.0) g/dL 01/15/20 01/15/20 01/15/20 Range/Units 00:27 04:44 05:00 ABG pH 7.46 H (7.35-7.45) ABG pCO2 52 H (35-45) mmHg ABG pO2 52 L* (83-108) mmHg ABG HCO3 37 H (21-25) mmol/L ABG Total CO2 39 H (19-24) mmol/L ABG O2 Saturation 87.0 L (94-97) % Carbon Dioxide 36 H (22-30) mmol/L BUN 26 H (7-17) mg/dL Creatinine 0.46 L (0.52-1.04) mg/dL Glucose 158 H (74-99) mg/dL POC Glucose (mg/dL) 206 H (75-99) mg/dL AST 41 H (14-36) U/L ALT 64 H (4-34) U/L Lactate Dehydrogenase 713 H (313-618) U/L Creatine Kinase <20 L (30-135) U/L Total Protein 4.7 L (6.3-8.2) g/dL Albumin 2.2 L (3.5-5.0) g/dL 01/15/20 01/15/20 Range/Units 05:17 08:08 ABG pH (7.35-7.45) ABG pCO2 (35-45) mmHg ABG pO2 (83-108) mmHg ABG HCO3 (21-25) mmol/L ABG Total CO2 (19-24) mmol/L ABG O2 Saturation (94-97) % Carbon Dioxide (22-30) mmol/L BUN (7-17) mg/dL Creatinine (0.52-1.04) mg/dL Glucose (74-99) mg/dL POC Glucose (mg/dL) 153 H 128 H (75-99) mg/dL AST (14-36) U/L ALT (4-34) U/L Lactate Dehydrogenase (313-618) U/L Creatine Kinase (30-135) U/L Total Protein (6.3-8.2) g/dL Albumin (3.5-5.0) g/dL Assessment and Plan Assessment: Sinus bradycardia with hypertension, monitor off of Lopressor and clonidine, continue hydralazine IV as needed consult cardiovascular disease and associated patient Norvasc dose has been escalated Acute hypoxic respiratory failure on ventilator COVID 19 pneumonia with some improvement in oxygenation Ventilator adjustment now patient is on 50 % oxygen but will be titrated oxygen down as tolerated, her peak airway pressures are stable high 20s , will titrate peep in next 24 hours and then start coming down on the PEEP was started with lowering it to 8, in next 24 hours plan is to come down oxygen to 40% and PEEP of 8 Continue I's and Os negative side monitor urine output, we'll continue the Lasix to 20 mg daily Patient is getting trial of steroids seems to be tolerating well thus hyperg lycemia is some improvement in chest x-ray and oxygenation, there is some anecdotal reports coming from [place] it helps oxygenation however with the cost of prolonged shedding of viral particles we'll continue it to once daily Aspiration pneumonia likely mixed bacterial and/or or gram-negative related, continue Zosyn Bilateral small pleural effusion multifactorial process Chronic right-sided weakness dysphagia and aphasia status post PEG tube COPD Insulin-dependent diabetes mellitus uncontrolled Hypertension hypertensive cardiovascular disease, will decrease Norvasc to 5 mg Chronic atrial fibrillation on anticoagulation Lovenox Critical care time 35 minutes Plan: Titrated oxygen down as as tolerated with slow lowering of PEEP, will be lowered subsequently as noted above Anticoagulation. Lovenox twice a day Continue Norvasc other hemodynamic parameters as noted above Lowering of IV steroids has improved glucose level as well Observe off of levo fed Continue tube feed Ventilator adjustment Continue to check inflammatory labs for covid19 as needed Monitor sodium levels closely Continue respiratory and contact isolation Time with Patient: Greater than 30
[2020-01-15 12:19] LABS: Glucose,Whole Blood 168 mg/dL (75-99)
--- NOTE | 2020-01-15 13:03 | P.PN ---
Subjective Progress Note Date: 01/15/20 Soledad Enriquez, is an 79-year-old female who resides at a group home at this time will was noticed to have worsening mental status and persistent cough, patient started having elevated temperature up to 101 at that point she was sent to [facility] emergency room she had testing for influenza A and B which were negative she also had an instant test for Covid 19 which was positive she was admitted to telemetry floor she was started on IV Zithromax pulmonary and infectious disease consultation were requested. Patient also had evidence of dehydration with hypernatremia elevated sodium level at 151. Patient has a known history of multiple medical problems including history of stroke with right sided paralysis, history of aspiration patient has a PEG tube for feeding, history of insulin-dependent diabetes mellitus, history of hypertension, history of hyperlipidemia, and history of paroxysmal atrial fibrillation. On presentation patient had a temperature of 101 pulse of 82 respiration 18 blood pressure 119/63 and pulse ox of 91% on 4 L nasal cannula. White blood count was 4.8 chest x-ray revealed evidence of left basilar opacity. On 12/30/2019 patient was seen and examined on the medical floor she is somnolent responsive in no apparent distress there is low-grade fever temperature is 100.8 there is no chills no headache or dizziness no chest pain no shortness of breath no cough no nausea or vomiting no abdominal pain no diarrhea and no burning was urination. Nurse noticed some vaginal bleeding, hemoglobin is stable at 15. Pulse ox is 96% on 4 L nasal cannula , On 12/31/2019 patient was seen and examined on the medical floor she is somnolent responsive in no apparent distress, her fever is subsiding temperatures this morning 99 pulse ox is 92% on 4 L nasal cannula, patient is denying any complaints at this time however, she does not seem to be listening much to the questions, and she goes back to sleep fast. White blood count today is normal at 4.1 hemoglobin is 15.2 potassium is elevated at 5.8 On 01/01/2020 patient was seen and examined on the medical floor she is more alert and responsive today there is no fever or chills no headache or dizziness no chest pain no shortness of breath no cough no nausea or vomiting no abdominal pain no diarrhea and no urinary symptoms, she is receiving feeding through PEG tube at night, glucose level is elevated again, will increase Lantus dose to 25 units at bedtime, and continue was inserted into sliding scale. Patient is receiving oxygen via nasal cannula at 4 L her pulse ox is 92% patient does not s eem to be in any distress her temperature heart rates respiration rate and blood pressure are in normal range white blood count is 3.8 potassium 4.8 On 01/02/2020 patient was seen and examined on the medical floor she is alert and responsive in no apparent distress. This morning patient had an episode of shortness of breath with decreased O2 sat duration A team was called patient received IV Lasix Sands catheter was inserted chest x-ray was done. Currently patient is doing better pulse ox is 92% on 4 L nasal cannula. On 01/03/2020 patient was seen and examined on the medical floor she is alert responsive in no apparent distress, her pulse ox is 92% on 6 L nasal cannula she is afebrile blood pressure is 123/87 chest x-ray done yesterday reveals left lower lobe infiltrate and right perihilar infiltrates. Without significant improvement from prior x-rays. On 01/04/2020 patient was seen and examined on the medical floor she is more alert and responsive today he denies any pain or discomfort, her pulse ox was lower today and she was switched to a nonrebreather mask On 01/05/2020 patient was seen and examined on the medical floor, she is alert and responsive at this time, she is tolerating tube feeding well, she denied any pain or discomfort. On 01/06/2020 patient was seen and examined on the medical floor, she is alert responsive in no apparent distress she is answering a few questions with yes or no or nodding her head she is tolerating tube feeding well she is denying any pain or discomfort at this time, her temperature is 98.1 blood pressure 135/75 pulse ox 90% on nonrebreather mask. On 01/07/2020 Patient was seen and examined in the ICU. Around 7:00 am this morning patient was on the floor she was having worsening shortness of breath and using accessory muscles she was on nonrebreather mask and her O2 sat duration was 88% Dr. [place] was contacted patient was transferred to ICU she was intubated sedated and started on mechanical ventilation, she was also started on levophed for blood pressure support. On 01/08/2020 Patient was seen and examined in the ICU. She is intubated sedated maintained on mechanical ventilation, she is still on a small dose of Levophed. She is receiving tube feeding via PEG tube. Her ABG reveals a pH of 7.4 to pCO2 45 by mouth to 59 FiO2 is 70% On 01/09/2020 patient was seen and examined in the ICU she remains intubated sedated maintained on mechanical ventilation, she remains on a small dose of levophed for pressure support. ABG reveals a pH of 7.4 pCO2 47 PO2 77 with FiO2 of 70% her temperature is 90.8 pulse 69 respiration 27 blood pressure 112/70 On 01/10/2020 patient was seen and examined in the ICU she is intubated sedated maintained on mechanical ventilation, temperature is 97.9 pulse 62 respiration 20 blood pressure 121/73 ABG reveals pH of 7.39 pCO2 52 by mouth to 59 FiO2 is 60% no significant change in condition since yesterday patient is receiving tube feeding. She was not seen by critical care yesterday due to personal reasons per nurse. At this time will change consult for pulmonary and critical care to Dr. Perez. On 01/11/2020 Patient was seen and examined in the ICU she is intubated, sedated, maintained on mechanical ventilation. there is no fever or chills. ABs reveals PH 7.46 PCO2 51 PO2 58 FIO@ 100 % On 01/12/2020 patient was seen and examined in the ICU she is intubated sedated maintained on mechanical ventilation she is not on any pressure support there is no fever or chills she is receiving tube feeding. On 01/13/2020 patient was seen and examined in the ICU she is intubated sedated maintained on mechanical ventilation, she is maintained on 2 feeding glucose is elevated, dose of Levemir will be increased to 35 units daily, continue with sliding scale. ABG reveals pH 7.5 one pCO2 46 by mouth to 90 FiO2 of 60% On 01/14/2020 patient was seen and examined in the ICU she is intubated sedated maintained on mechanical ventilation she is also maintained on PEG tube feeding she had episodes of bradycardia cardiology were consulted and beta herminio were discontinued and patient was started on Norvasc patient also is having some minimal elevation in her liver enzymes pravastatin was discontinued. Otherwise no significant change in her condition patient remains on mechanical ventilation no weaning trials are scheduled for today. On 01/15/2020 patient was seen and examined in the ICU she is intubated sedated maintained on mechanical ventilation she is receiving PEG tube feeding. Case was discussed with Dr. Kam[place] professor. Patient is stable and is improving she is alert when her sedation is decreased however her O2 saturation drops with sedation holidays. There is no fever or chills. Temperature is 97.7 pulse 60 respirations 17 blood pressure 143/74 ABG reveals a pH of 7.46 pCO2 52 by mouth to 52 FiO2 at this time is 40% Objective - Vital Signs Vital signs: Vital Signs Temp 97.7 F 01/15/20 08:00 Pulse 63 01/15/20 11:00 Resp 16 01/15/20 11:00 BP 95/61 01/15/20 11:00 Pulse Ox 99 01/15/20 11:00 Intake & Output 01/14/20 01/15/20 01/15/20 18:59 06:59 18:59 Intake Total 806.428 573.379 266.454 Output Total 1395 950 650 Balance -588.572 -376.621 -383.546 Weight 83.7 kg Intake: IV 120 120 50 NS 120 120 50 Intake, IV Titration 175.428 93.379 46.454 Amount Propofol 1,000 mg In 175.428 93.379 46.454 Empty Bag 1 bag @ Titrate IV .Q0M [facility] Rx#: [id number] Tube Feeding 421 300 140 Other 90 60 30 Output: Urine 1395 950 650 Other: Voiding Method Indwelling Catheter Indwelling Catheter # Bowel Movements 1 - Exam In general patient is intubated sedated maintained on mechanical ventilation HEENT head normocephalic and atraumatic Neck is supple no JVD no goiter no lymphadenopathy Chest exam reveals a few scattered crackles no wheezing Cardiac exam reveals regular heart sounds no gallops no murmurs Abdomen is soft nontender no organomegaly with normal bowel sounds Extremity exam reveals no edema no cyanosis or clubbing - Labs CBC & Chem 7: 01/15/20 04:44 01/15/20 04:44 Labs: Abnormal Lab Results - Last 24 Hours (Table) 01/14/20 01/14/20 01/15/20 Range/Units 16:31 20:53 00:27 ABG pH (7.35-7.45) ABG pCO2 (35-45) mmHg ABG pO2 (83-108) mmHg ABG HCO3 (21-25) mmol/L ABG Total CO2 (19-24) mmol/L ABG O2 Saturation (94-97) % Carbon Dioxide (22-30) mmol/L BUN (7-17) mg/dL Creatinine (0.52-1.04) mg/dL Glucose (74-99) mg/dL POC Glucose (mg/dL) 209 H 236 H 206 H (75-99) mg/dL AST (14-36) U/L ALT (4-34) U/L Lactate Dehydrogenase (313-618) U/L Creatine Kinase (30-135) U/L Total Protein (6.3-8.2) g/dL Albumin (3.5-5.0) g/dL 01/15/20 01/15/20 01/15/20 Range/Units 04:44 05:00 05:17 ABG pH 7.46 H (7.35-7.45) ABG pCO2 52 H (35-45) mmHg ABG pO2 52 L* (83-108) mmHg ABG HCO3 37 H (21-25) mmol/L ABG Total CO2 39 H (19-24) mmol/L ABG O2 Saturation 87.0 L (94-97) % Carbon Dioxide 36 H (22-30) mmol/L BUN 26 H (7-17) mg/dL Creatinine 0.46 L (0.52-1.04) mg/dL Glucose 158 H (74-99) mg/dL POC Glucose (mg/dL) 153 H (75-99) mg/dL AST 41 H (14-36) U/L ALT 64 H (4-34) U/L Lactate Dehydrogenase 713 H (313-618) U/L Creatine Kinase <20 L (30-135) U/L Total Protein 4.7 L (6.3-8.2) g/dL Albumin 2.2 L (3.5-5.0) g/dL 01/15/20 01/15/20 Range/Units 08:08 12:18 ABG pH (7.35-7.45) ABG pCO2 (35-45) mmHg ABG pO2 (83-108) mmHg ABG HCO3 (21-25) mmol/L ABG Total CO2 (19-24) mmol/L ABG O2 Saturation (94-97) % Carbon Dioxide (22-30) mmol/L BUN (7-17) mg/dL Creatinine (0.52-1.04) mg/dL Glucose (74-99) mg/dL POC Glucose (mg/dL) 128 H 168 H (75-99) mg/dL AST (14-36) U/L ALT (4-34) U/L Lactate Dehydrogenase (313-618) U/L Creatine Kinase (30-135) U/L Total Protein (6.3-8.2) g/dL Albumin (3.5-5.0) g/dL Assessment and Plan Plan: #1 pneumonia likely related to COVID 19 viral pneumonitis, followed by pulmonary and infectious disease, condition has worsened over night patient is currently in ICU maintained on mechanical ventilation #2 severe hypernatremia, on admission corrected #3 mental status changes likely related to hypernatremia and metabolic encephalopathy related to infection #4 acute hypoxic respiratory failure related to pneumonia, requiring oxygen at 4 L nasal cannula at this time #5 underlying history of hypertension #6 underlying history of COPD #7 underlying history of insulin-dependent diabetes mellitus, insulin dose adjusted today Levemir increased to 35 units daily #8 underlying history of stroke with right sided paralysis #9 chronic dysphagia and aspiration requiring PEG tube feeding #10 underlying history of atrial fibrillation maintained on Xarelto #11 vaginal bleeding, at this time will monitor closely, will check daily CBC, and monitor for amount of bleeding. Once her current illness has subsided, will investigate further with pelvic ultrasound and [employer] OPERATOR consult. #12 hyperkalemia, corrected At this time patient is into in the intensive care unit, no change in condition since yesterday She is intubated sedated maintained on mechanical ventilation Consultation for pulmonary and infectious disease requested in the emergency room and are following patient's Will follow closely Prognosis is guarded due to multiple underlying comorbid conditions
--- NOTE | 2020-01-15 14:22 | P.PN ---
Subjective Patient's heart rate has been stable. Lowest seen is in the high 40s. Otherwise mostly the 50s Beta blockers on hold Hemoglobin 12.6 Sodium 138, potassium 4.0 BUN 26 creatinine 0.46 Plan Stay off beta blockers and continue current I so management Continue amlodipine 10 mg by PEG tube Continue by mouth Lasix Hold off on using IV hydralazine Continue lisinopril 2.5 mg by mouth daily Objective - Vital Signs Vital signs: Vital Signs Temp 97.7 F 01/15/20 08:00 Pulse 63 01/15/20 11:00 Resp 16 01/15/20 11:00 BP 95/61 01/15/20 11:00 Pulse Ox 99 01/15/20 11:00 Intake & Output 01/14/20 01/15/20 01/15/20 18:59 06:59 18:59 Intake Total 806.428 573.379 266.454 Output Total 1395 950 650 Balance -588.572 -376.621 -383.546 Weight 83.7 kg Intake: IV 120 120 50 NS 120 120 50 Intake, IV Titration 175.428 93.379 46.454 Amount Propofol 1,000 mg In 175.428 93.379 46.454 Empty Bag 1 bag @ Titrate IV .Q0M [facility] Rx#: [id number] Tube Feeding 421 300 140 Other 90 60 30 Output: Urine 1395 950 650 Other: Voiding Method Indwelling Catheter Indwelling Catheter # Bowel Movements 1 - Labs CBC & Chem 7: 01/15/20 04:44 01/15/20 13:25 Labs: Abnormal Lab Results - Last 24 Hours (Table) 01/14/20 01/14/20 01/15/20 Range/Units 16:31 20:53 00:27 ABG pH (7.35-7.45) ABG pCO2 (35-45) mmHg ABG pO2 (83-108) mmHg ABG HCO3 (21-25) mmol/L ABG Total CO2 (19-24) mmol/L ABG O2 Saturation (94-97) % Carbon Dioxide (22-30) mmol/L BUN (7-17) mg/dL Creatinine (0.52-1.04) mg/dL Glucose (74-99) mg/dL POC Glucose (mg/dL) 209 H 236 H 206 H (75-99) mg/dL AST (14-36) U/L ALT (4-34) U/L Lactate Dehydrogenase (313-618) U/L Creatine Kinase (30-135) U/L Total Protein (6.3-8.2) g/dL Albumin (3.5-5.0) g/dL 01/15/20 01/15/20 01/15/20 Range/Units 04:44 05:00 05:17 ABG pH 7.46 H (7.35-7.45) ABG pCO2 52 H (35-45) mmHg ABG pO2 52 L* (83-108) mmHg ABG HCO3 37 H (21-25) mmol/L ABG Total CO2 39 H (19-24) mmol/L ABG O2 Saturation 87.0 L (94-97) % Carbon Dioxide 36 H (22-30) mmol/L BUN 26 H (7-17) mg/dL Creatinine 0.46 L (0.52-1.04) mg/dL Glucose 158 H (74-99) mg/dL POC Glucose (mg/dL) 153 H (75-99) mg/dL AST 41 H (14-36) U/L ALT 64 H (4-34) U/L Lactate Dehydrogenase 713 H (313-618) U/L Creatine Kinase <20 L (30-135) U/L Total Protein 4.7 L (6.3-8.2) g/dL Albumin 2.2 L (3.5-5.0) g/dL 01/15/20 01/15/20 Range/Units 08:08 12:18 ABG pH (7.35-7.45) ABG pCO2 (35-45) mmHg ABG pO2 (83-108) mmHg ABG HCO3 (21-25) mmol/L ABG Total CO2 (19-24) mmol/L ABG O2 Saturation (94-97) % Carbon Dioxide (22-30) mmol/L BUN (7-17) mg/dL Creatinine (0.52-1.04) mg/dL Glucose (74-99) mg/dL POC Glucose (mg/dL) 128 H 168 H (75-99) mg/dL AST (14-36) U/L ALT (4-34) U/L Lactate Dehydrogenase (313-618) U/L Creatine Kinase (30-135) U/L Total Protein (6.3-8.2) g/dL Albumin (3.5-5.0) g/dL
[2020-01-15 15:43] LABS: Glucose,Whole Blood 232 mg/dL (75-99)
[2020-01-15 20:05] LABS: Glucose,Whole Blood 207 mg/dL (75-99)
[2020-01-15] MEDS: INSULIN DETEMIR (LEVEMIR) 100 UNIT/ML SYR SQ SCH (20:40)
--- NOTE | 2020-01-15 23:50 | PN ---
PROGRESS NOTE DATE OF SERVICE: 01/15/2020 REASON FOR FOLLOWUP: Pneumonia. INTERVAL HISTORY: The patient is currently afebrile. Patient remains to be sedated him. Hemodynamically stable, not on pressor support. FiO2 is currently 40%. No purulent secretions or any diarrhea reported. PHYSICAL EXAMINATION: Blood pressure 130/68 with a pulse of 73, temperature 98.1. She is 96% on 40% FiO2. General description is an elderly female intubated on the vent. RESPIRATORY SYSTEM: Unlabored breathing, decreased breath sounds. No wheeze. HEART: S1, S2. Regular rate and rhythm. ABDOMEN: Soft, no distention. LABS: Hemoglobin is 12.6, white count 6.4 with a BUN of 26, creatinine 0.46. DIAGNOSTIC IMPRESSION AND PLAN: Patient with acute respiratory failure which is multifactorial in this patient with possible component of pneumonia. X-ray shows slight worsening. The patient culture has been repeated. Continue with Zosyn and monitor clinical course closely. MMODL / IJN: [id number] / MTDD
[2020-01-16 00:07] LABS: Glucose,Whole Blood 177 mg/dL (75-99)
[2020-01-16] MEDS: NOREPINEPHRINE 4 MG in SODIUM CHLORIDE 0.9% 250 ML IV SCH ×2 (00:31→15:26)
[2020-01-16] MEDS: INSULIN ASPART (NovoLOG) 100 UNIT/ML VIAL SQ SCH ×6 (01:00→20:56)
[2020-01-16] MEDS: PIPERACILLIN-TAZOBACTAM 3.375 GM in SODIUM CHLORIDE 0.9% 100 ML IVPB SCH ×4 (01:00→23:21)
[2020-01-16] MEDS: FERROUS SULFATE ORAL ELIXIR 300 MG/5 ML CUP PEG/G-TUBE SCH ×2 (01:01→20:32)
[2020-01-16 03:08] LABS: Glucose,Whole Blood 173 mg/dL (75-99)
[2020-01-16 04:11] LABS: Glucose,Whole Blood 157 mg/dL (75-99)
[2020-01-16] MEDS: PROPOFOL 1,000 MG in EMPTY BAG 1 BAG IV SCH ×3 (04:14→15:37)
[2020-01-16 05:20] LABS: African American GFR (CKD) >90 (>60 ml/min/1.73 sqM); Albumin 2.2 g/dL (3.5-5.0); Anion Gap 2 mmol/L; C Reactive Protein 7.5 mg/L (<10.0); Calcium 9.5 mg/dL (8.4-10.2); Carbon Dioxide 31 mmol/L (22-30); Chloride 104 mmol/L (98-107); Glucose 168 mg/dL (74-99); Non-African American GFR(CKD) >90 (>60 ml/min/1.73 sqM); Sodium 137 mmol/L (137-145); Total Bilirubin 0.7 mg/dL (0.2-1.3); Total Protein 4.8 g/dL (6.3-8.2)
[2020-01-16 05:22] LABS: ALT 47 U/L (4-34); AST 36 U/L (14-36); Alkaline Phosphatase 49 U/L (38-126); Blood Urea Nitrogen 26 mg/dL (7-17); Potassium 4.5 mmol/L (3.5-5.1)
[2020-01-16 05:38] LABS: Basophils # (A) 0.1 k/uL (0-0.2); Basophils % (A) 1 %; Eosinophils # (A) 0.2 k/uL (0-0.7); Eosinophils % (A) 3 %; HCT 40.6 % (34.0-46.0); Lymphocytes # (A) 1.6 k/uL (1.0-4.8); Lymphocytes % (A) 22 %; MCH 30.5 pg (25.0-35.0); MCHC 32.1 g/dL (31.0-37.0); Monocytes # (A) 0.6 k/uL (0-1.0); Monocytes % (A) 8 %; Neutrophils # (A) 4.8 k/uL (1.3-7.7); Neutrophils % (A) 63 %; Platelet Count 179 k/uL (150-450); RBC 4.27 m/uL (3.80-5.40); RDW 14.3 % (11.5-15.5); WBC 7.5 k/uL (3.8-10.6)
[2020-01-16 05:49] LABS: ABG Base Excess 12.2 mmol/L; ABG HCO3 36 mmol/L (21-25); ABG Oxygen Saturation 88.5 % (94-97); ABG PCO2 51 mmHg (35-45); ABG PH 7.46 (7.35-7.45); ABG TCO2 38 mmol/L (19-24); Allen Test Performed? Yes
[2020-01-16 05:51] LABS: ABG PO2 54 mmHg (83-108)
[2020-01-16] MEDS: ALBUTEROL HFA INHALER INHALATION SCH ×4 (07:45→19:48)
[2020-01-16] MEDS: CHLORHEXIDINE GLUCONATE 15 ML CUP MUCOUS MEM SCH ×2 (08:07→20:33)
[2020-01-16] MEDS: PANTOPRAZOLE 40 MG/10 ML VIAL IV SCH (08:08)
[2020-01-16] MEDS: methylPREDNISolone SOD SUCCI 40 MG/ML 1 ML VIAL IV SCH (08:09)
[2020-01-16] MEDS: FUROSEMIDE 10 MG/ML 2 ML VIAL IV SCH (08:11)
[2020-01-16] MEDS: ENOXAPARIN 40 MG/0.4 ML SYRINGE SQ SCH ×2 (08:11→20:33)
[2020-01-16] MEDS: ZINC SULFATE 220 MG CAP PO SCH (08:12)
[2020-01-16] MEDS: CHOLECALCIFEROL 1,000 UNIT TAB PEG/G-TUBE SCH (08:14)
[2020-01-16 08:24] LABS: Glucose,Whole Blood 135 mg/dL (75-99)
[2020-01-16] MEDS: amLODIPine 10 MG TAB PO SCH (08:54)
[2020-01-16] MEDS: LISINOPRIL 2.5 MG TAB PEG/G-TUBE SCH (08:54)
[2020-01-16] MEDS ORDERED: FUROSEMIDE 10 MG/ML 4 ML VIAL IV STA (09:59)
--- NOTE | 2020-01-16 09:59 | P.PN ---
Subjective Progress Note Date: 01/16/20 Principal diagnosis: Acute hypoxic respiratory failure on ventilator COVID 19 pneumonia Aspiration pneumonia likely mixed bacterial and/or or gram-negative related Chronic right-sided weakness dysphagia and aphasia status post PEG tube COPD Insulin-dependent diabetes mellitus uncontrolled Hypertension hypertensive cardiovascular disease Chronic atrial fibrillation on anticoagulation off of his Xeralto, has been initiated on Lovenox twice a day 01/16/2020, patient seen eval examined during the rounds labs reviewed medications reviewed care plan discussed with the primary service, patient FiO2 is slightly up to percent otherwise PEEP remains 8, tidal volume is 500 with a rate of 16 ventilation appears to be fairly adequate oxygen however remains low review of the data revealed that patient is slightly even and positive in last 48 hours will benefit from some diuresis and given extra Lasix today continue to feed, continue sedation currently on propofol 25 mics, x-ray is not done today, arterial blood gas reviewed labs reviewed. Current care time spent 35 minutes 01/15/2020, patient seen eval examined during the rounds labs reviewed medications reviewed care plan discussed with the staff at length, patient remains on full ventilator support with suctioning and movement she desaturates however similar episodethis morning at the time of chest x-ray when she was repositioned suction and transient desaturation happens arterial blood gas was done at the same time however after that on 25 mics of propofol she has been stable saturation have been 98-99% plan is to come down the oxygen to 40% will keep monitor PPEP 10 and if oxygen remains stable on 40% will go down to 8 by and of the day, hemodynamic status stable blood pressure is stable and did not r equire IV hydralazine, heart rate is improve into high 50s and low 60s, patient is off of clonidine and Lopressor now remains off of vasopressors, tolerating the feed well, urine output is good arterial blood gases reviewed adequate ventilation chest x-ray reviewed overall essentially stable with small bilateral pleural effusion, overall plan is to come down to oxygen of 40% and PEEP of 5 and next 24-48 hours then will initiate spontaneous breathing trials keep ins and outs even are negative side continue current dose of Solu-Medrol and continue antibiotics critical care time 35 minutes 01/14/2020, patient seen eval reexamined during the rounds labs reviewed medications reviewed, chest x-ray reviewed as well, patient remains sedated with propofol drip 25 mics, she is bradycardic heart rate is 40-45 with slightly elevated blood pressure 160-170 breathing with vent rate was initially 20 have been reduced to 16, tidal volume is 450 keep is 15 has been lowered down to 10 saturation is 95-96% chest x-ray reviewed right lower lobe infiltrate and small effusions seen overall lung parenchyma and infiltrate appears stable and continued to improve, patient is tolerating every feed very well labs reviewed CBC within normal limits chemistry revealed ABG combination of metabolic and respiratory alkalosis ventilator has been adjusted Lasix have been lowered down to once a day some contribution from his steroids presents which will be reduced to 40 daily, patient will be observed how she does with lower PEEP, we will start hydralazine IV for blood pressure control, continue to hold Lopressor and also hold clonidine we will get cardiovascular services opinion consultation, patient has been tolerating tube feed very well respiratory secretions are minimal adequate urine output has been present 01/13/2020, patient seen eval reexamined during the rounds labs reviewed medications reviewed radiographic studies reviewed as well patient FiO2 has been brought down to 60% she is on 15 of PEEP, her oxygen saturation 97% she is off of vasopressors, she is on 30 mics of propofol somewhat bradycardic will decrease of propofol to 20 mics, we'll continue to bring down the oxygen to 40% as tolerated in during next 24 hours, then will come on down and PEEP. Respiratory secretions are minimal to feed is tolerating well mental status not much change, developed bradycardia her beta blockers are being held, her chest x-ray showing small pleural effusion bilaterally and basal atelectasis and consolidation, tubes are stable, she remains on Solu-Medrol 40 every 12 hourly and Lovenox also 40 q 12, it appears that Solu-Medrol has been helping in improving and able to come down on oxygen, peak airway pressure 30, urine output has been adequate patient has some component of respiratory and metabolic alkalosis, we will lower down the Lasix to 20 mg daily also will decrease the tidal volume to 450, care time spent 35 minuteto 01/12/2020, patient seen and evaluated today care plan discussed with the nurse at length radiographic studies and lab studies reviewed, patient remains on assi st control mode rate of 20 breathing about 24 of patient remains at PEEP of 10 FiO2 of 80% oxygen saturation are 90-94% within increase the PEEP to 15 as blood pressure is stable and titrated oxygen down to 70-60% next 24 hours chest x-ray reviewed continued to show same pattern but overall condition appears to improve to feed as tolerated very well, CBC is normal arterial blood gases history of hypercapnic hypoxic respiratory failure, bicarb is slightly going up the patient seems to be tolerating steroid well however sugars are higher side remains on insulin 01/11/2020, patient seen eval examined during the rounds labs reviewed medications reviewed radiographic studies reviewed as well patient remains sedated with 40 mics of propofol, she'll decrease it to 30 mics off of levo fed drip, patient did start some levo fed last night but now off, noted that FiO2 has been escalated to 100% and PEEP is down to 5, we'll increase PEEP back to 10 and titrated oxygen down as tolerated to bring it down to goal of 70% in next 24 hours slowly will decrease his sedation as well, 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, left-sided slight worsening has been noted with small left-sided pleural effusion likely fluid overload some of the fluid is present on the right side as well patient medications have been reviewed, patient is on Norvasc 10 mg along with Catapres and Ogestrel, patient has been started on IV steroids given hypoxia And a Difficult Reports from [place] That Steroids Have Been Helpful in Improving Oxygenation but at the Cost of Increasing Shedding Time However, Eisenmenger's Slightly Positive Today, Patient Has Received Lasix, ABG Reviewed pH Is 7.46 PCO2 Is 51 PO2 Is 58 That Is on PEEP of 5 and 100% Oxygen, Her LDH Is up to 926 Ferritin C-Reactive Protein and IL6 Levels Are Pending 01/10/2020, patient seen and evaluated examined during the rounds labs reviewed medications reviewed care plan discussed with RN, patient FiO2 has been down to 60% and peak airway pressures are stable, patient remains on assist control mode rate of 20 breathing about 25-28 oxygen saturation 93% she is 10, spontaneous tidal volume on about 400 500 range patient has been getting his spontaneous breathing trial and she is been sedated with propofol drip very small dose of levofed is still going to come patient is on broad-spectrum antibiotics to feed is going on patient is on half normal saline as well chest x-ray shows diffuse infiltrate stable lines 01/08/2020, patient seen and evaluated examined in ICU patient remains on current ventilator with full ventilatory response be clear pressure slightly better than yesterday ranging from 30-32, patient is down to 70% now PEEP of 10 assist control is 20 breathing about 25-26 tidal volume is 400 this morning ABG reviewed ventilation is adequate slight hypoxia was noted but however sats at that time when the gas were done were 91-92% since that time patient has received 20 of Lasix and put out about 550 mL of urine and saturation is improved to 96%, patient is afebrile, patient would need a PICC line tomorrow, remains on propofol dose has been escalated today, tolerating to feed well, sugars are in low 200 range, LDH is 817 C-reactive protein is 25.2 on the they are showing downward trend her plan discussed with the staff at length will increase her Lasix to 20 mg daily will keep patient on 70% and PEEP of 10 and today attempt to titrate oxygen down again tomorrow chest x-ray showed some improved aviation compared to prior study stable ET tube, and seems to tolerating Lasix well any significant compromise in hemodynamic status critical care time spent 35 minutes 01/07/2020, patient does live increase respiratory distress earlier this morning oxygen remains very poor saturation dropped down into 70s to 80s percent, pO2 was only 46 patient was intubated and placed in ICU where patient was seen eval reexamined, patient remains on levo fed drip on 5 mics, her hemodynamic is slightly better systolic blood pressure ranging from 100 210, patient is on propofol 20, vent setting include assist control of 20 tidal volume of 400, PEEP of 10, FiO2 have been lowered down to 90%, ABG and laboratory data data reviewed chest x-ray reviewed mild bilateral interstitial infiltrate consistent with viral pneumonia, patient is being started on Lovenox twice a day continued on tube feed will increase gentle hydration, blood glucose is running slightly high will increase the Levemir, critical care time spent 45 minutes 01/06/2020, patient seen and evaluated examined remains on nonrebreather mask still have problems associated with shortness of breath, care plan discussed with RN will continue current plan of care patient can be started on as needed breathing treatments will continue to gently diurese 01/05/2020, patient seen and evaluated examined remains on nonrebreather mask, nonverbal and noncommunicative essentially no significant change in neurological condition, she remained afebrile with stable hemodynamics her oxygen saturations improved to 96% on repeat nonrebreather mask 01/04/2020, patient laying on the bed on 100% nonrebreather mask and breathing is slightly short of breath, patient is on bronchodilator along with antibiotics, has been on Lasix as well, patient remains on Zosyn, labs reviewed white cell count is normal, labs reviewed, glucose is 342, BUN/creatinine is 25 and 0.7, stool for C. difficile is negative 01/02/2020, patient seen eval examined during the rounds patient has a rapid response this morning with the shortness of breath she however responded well with Lasix, Sands's catheter has been placed, shortness of breath have improved though, on 4 L saturation is 92% low-grade temperature of 99 is present, her chest x-ray assistive of the left lower lobe pneumonia and right perihilar infiltrate prominent lung markings likely fluid overload, Objective - Vital Signs Vital signs: Vital Signs Temp 98 F 01/16/20 08:00 Pulse 56 L 01/16/20 08:00 Resp 18 01/16/20 09:00 BP 144/77 01/16/20 09:00 Pulse Ox 96 01/16/20 09:00 Intake & Output 01/15/20 01/16/20 01/16/20 18:59 06:59 18:59 Intake Total 740.011 815.517 265 Output Total 1300 645 275 Balance -559.989 170.517 -10 Weight 82.6 kg Intake: IV 120 130 30 NS 120 130 30 Intake, IV Titration 145.011 165.517 100 Amount Piperacillin-Tazobactam 3 100 .375 gm In Sodium Chloride 0.9% 100 ml @ 25 mls/hr IVPB Q8HR [facility] Rx# :[id number] Propofol 1,000 mg In 145.011 165.517 Empty Bag 1 bag @ Titrate IV .Q0M [facility] Rx#: [id number] Tube Feeding 385 490 105 Other 90 30 30 Output: Urine 1300 645 275 Other: Voiding Method Indwelling Catheter Indwelling Catheter Indwelling Catheter # Voids 1 1 - Exam - Neck Neck: no lymphadenopathy, no stridor - Respiratory Scattered rhonchi throughout, full ventilator support - Cardiovascular Regular rhythm and rate. S1 and S2 present, negative for S3, gallop or murmur. Trace edema to her bilateral lower extremities. - Gastrointestinal Abdomen soft and nondistended. - Integumentary Skin is warm and dry. No clubbing or cyanosis is present. Integumentary: no rash - Neurologic Sedated with propofol drip - Labs CBC & Chem 7: 01/16/20 05:31 01/16/20 04:10 Labs: Abnormal Lab Results - Last 24 Hours (Table) 01/15/20 01/15/20 01/15/20 Range/Units 12:18 15:41 20:04 ABG pH (7.35-7.45) ABG pCO2 (35-45) mmHg ABG pO2 (83-108) mmHg ABG HCO3 (21-25) mmol/L ABG Total CO2 (19-24) mmol/L ABG O2 Saturation (94-97) % Carbon Dioxide (22-30) mmol/L BUN (7-17) mg/dL Creatinine (0.52-1.04) mg/dL Glucose (74-99) mg/dL POC Glucose (mg/dL) 168 H 232 H 207 H (75-99) mg/dL ALT (4-34) U/L Total Protein (6.3-8.2) g/dL Albumin (3.5-5.0) g/dL 01/16/20 01/16/20 01/16/20 Range/Units 00:06 03:07 04:10 ABG pH (7.35-7.45) ABG pCO2 (35-45) mmHg ABG pO2 (83-108) mmHg ABG HCO3 (21-25) mmol/L ABG Total CO2 (19-24) mmol/L ABG O2 Saturation (94-97) % Carbon Dioxide 31 H (22-30) mmol/L BUN 26 H (7-17) mg/dL Creatinine 0.40 L (0.52-1.04) mg/dL Glucose 168 H (74-99) mg/dL POC Glucose (mg/dL) 177 H 173 H (75-99) mg/dL ALT 47 H (4-34) U/L Total Protein 4.8 L (6.3-8.2) g/dL Albumin 2.2 L (3.5-5.0) g/dL 01/16/20 01/16/20 01/16/20 Range/Units 04:10 05:45 08:22 ABG pH 7.46 H (7.35-7.45) ABG pCO2 51 H (35-45) mmHg ABG pO2 54 L* (83-108) mmHg ABG HCO3 36 H (21-25) mmol/L ABG Total CO2 38 H (19-24) mmol/L ABG O2 Saturation 88.5 L (94-97) % Carbon Dioxide (22-30) mmol/L BUN (7-17) mg/dL Creatinine (0.52-1.04) mg/dL Glucose (74-99) mg/dL POC Glucose (mg/dL) 157 H 135 H (75-99) mg/dL ALT (4-34) U/L Total Protein (6.3-8.2) g/dL Albumin (3.5-5.0) g/dL Assessment and Plan Assessment: Sinus bradycardia with hypertension, monitor off of Lopressor and clonidine, continue hydralazine IV as needed consult cardiovascular disease and associated patient Norvasc dose has been escalated Acute hypoxic respiratory failure on ventilator COVID 19 pneumonia with some improvement in oxygenation Ventilator adjustment now patient is on 60 % oxygen but will be titrated oxygen down as tolerated, her peak airway pressures are stable high 20s , will titrate peep in next 24 hours and then start coming down on the PEEP was started with lowering it to 8, in next 24 hours plan is to come down oxygen to 40% and PEEP of 8 Continue I's and Os negative side monitor urine output, we'll continue the Lasix to 20 mg daily and given extra dose of 40 today Patient is getting trial of steroids seems to be tolerating well thus hyperglycemia is some improvement in chest x-ray and oxygenation, there is some anecdotal reports coming from [place] it helps oxygenation however with the cost of prolonged shedding of viral particles we'll continue it to once daily Aspiration pneumonia likely mixed bacterial and/or or gram-negative related, continue Zosyn Bilateral small pleural effusion multifactorial process Chronic right-sided weakness dysphagia and aphasia status post PEG tube COPD Insulin-dependent diabetes mellitus uncontrolled Hypertension hypertensive cardiovascular disease, will decrease Norvasc to 5 mg Chronic atrial fibrillation on anticoagulation Lovenox Critical care time 35 minutes Plan: Titrated oxygen down as as tolerated with slow lowering of PEEP, will be lowered subsequently as noted above Anticoagulation. Lovenox twice a day Continue Norvasc other hemodynamic parameters as noted above Lowering of IV steroids has improved glucose level as well Observe off of levo fed Gentle diuresis will keep her negative 24 hours Continue tube feed Ventilator adjustment Continue to check inflammatory labs for covid19 as needed Monitor sodium levels closely Continue respiratory and contact isolation Time with Patient: Greater than 30
[2020-01-16] MEDS ORDERED: FUROSEMIDE 10 MG/ML 4 ML VIAL ONE (10:56)
[2020-01-16 11:03] LABS: Ferritin 433.2 ng/mL (10.0-291.0)
[2020-01-16 11:03] LABS: Ferritin 520.7 ng/mL (10.0-291.0)
[2020-01-16 12:12] LABS: Glucose,Whole Blood 218 mg/dL (75-99)
--- NOTE | 2020-01-16 14:15 | P.PN ---
Subjective Progress Note Date: 01/16/20 Soledad Enriquez, is an 79-year-old female who [facility] at [facility] time will was noticed to have worsening mental status and persistent cough, patient started having elevated temperature up to 101 at that point she was sent to [facility] emergency room she had testing for influenza A and B which were negative she also had an instant test for Covid 19 which was positive she was admitted to telemetry floor she was started on IV Zithromax pulmonary and infectious disease consultation were requested. Patient also had evidence of dehydration with hypernatremia elevated sodium level at 151. Patient has a known history of multiple medical problems including history of stroke with right sided paralysis, history of aspiration patient has a PEG tube for feeding, history of insulin-dependent diabetes mellitus, history of hypertension, history of hyperlipidemia, and history of paroxysmal atrial fibrillation. On presentation patient had a temperature of 101 pulse of 82 respiration 18 blood pressure 119/63 and pulse ox of 91% on 4 L nasal cannula. White blood count was 4.8 chest x-ray revealed evidence of left basilar opacity. On 12/30/2019 patient was seen and examined on the medical floor she is somnolent responsive in no apparent distress there is low-grade fever temperature is 100.8 there is no chills no headache or dizziness no chest pain no shortness of breath no cough no nausea or vomiting no abdominal pain no diarrhea and no burning was urination. Nurse noticed some vaginal bleeding, hemoglobin is stable at 15. Pulse ox is 96% on 4 L nasal cannula , On 12/31/2019 patient was seen and examined on the medical floor she is somnolent responsive in no apparent distress, her fever is subsiding temperatures this morning 99 pulse ox is 92% on 4 L nasal cannula, patient is denying any complaints at this time however, she does not seem to be listening much to the questions, and she goes back to sleep fast. White blood count today is normal at 4.1 hemoglobin is 15.2 potassium is elevated at 5.8 On 01/01/2020 patient was seen and examined on the medical floor she is more alert and responsive today there is no fever or chills no headache or dizziness no chest pain no shortness of breath no cough no nausea or vomiting no abdominal pain no diarrhea and no urinary symptoms, she is receiving feeding through PEG tube at night, glucose level is elevated again, will increase Lantus dose to 25 units at bedtime, and continue was inserted into sliding scale. Patient is receiving oxygen via nasal cannula at 4 L her pulse ox is 92% patient does not s eem to be in any distress her temperature heart rates respiration rate and blood pressure are in normal range white blood count is 3.8 potassium 4.8 On 01/02/2020 patient was seen and examined on the medical floor she is alert and responsive in no apparent distress. This morning patient had an episode of shortness of breath with decreased O2 sat duration A team was called patient received IV Lasix Sands catheter was inserted chest x-ray was done. Currently patient is doing better pulse ox is 92% on 4 L nasal cannula. On 01/03/2020 patient was seen and examined on the medical floor she is alert responsive in no apparent distress, her pulse ox is 92% on 6 L nasal cannula she is afebrile blood pressure is 123/87 chest x-ray done yesterday reveals left lower lobe infiltrate and right perihilar infiltrates. Without significant improvement from prior x-rays. On 01/04/2020 patient was seen and examined on the medical floor she is more alert and responsive today he denies any pain or discomfort, her pulse ox was lower today and she was switched to a nonrebreather mask On 01/05/2020 patient was seen and examined on the medical floor, she is alert and responsive at this time, she is tolerating tube feeding well, she denied any pain or discomfort. On 01/06/2020 patient was seen and examined on the medical floor, she is alert responsive in no apparent distress she is answering a few questions with yes or no or nodding her head she is tolerating tube feeding well she is denying any pain or discomfort at this time, her temperature is 98.1 blood pressure 135/75 pulse ox 90% on nonrebreather mask. On 01/07/2020 Patient was seen and examined in the ICU. Around 7:00 am this morning patient was on the floor she was having worsening shortness of breath and using accessory muscles she was on nonrebreather mask and her O2 sat duration was 88% Dr. Caba ward nurse was contacted patient was transferred to ICU she was intubated sedated and started on mechanical ventilation, she was also started on levophed for blood pressure support. On 01/08/2020 Patient was seen and examined in the ICU. She is intubated sedated maintained on mechanical ventilation, she is still on a small dose of Levophed. She is receiving tube feeding via PEG tube. Her ABG reveals a pH of 7.4 to pCO2 45 by mouth to 59 FiO2 is 70% On 01/09/2020 patient was seen and examined in the ICU she remains intubated sedated maintained on mechanical ventilation, she remains on a small dose of levophed for pressure support. ABG reveals a pH of 7.4 pCO2 47 PO2 77 with FiO2 of 70% her temperature is 90.8 pulse 69 respiration 27 blood pressure 112/70 On 01/10/2020 patient was seen and examined in the ICU she is intubated sedated maintained on mechanical ventilation, temperature is 97.9 pulse 62 respiration 20 blood pressure 121/73 ABG reveals pH of 7.39 pCO2 52 by mouth to 59 FiO2 is 60% no significant change in condition since yesterday patient is receiving tube feeding. She was not seen by critical care yesterday due to personal reasons per nurse. At this time will change consult for pulmonary and critical care to Dr. Perez. On 01/11/2020 Patient was seen and examined in the ICU she is intubated, sedated, maintained on mechanical ventilation. there is no fever or chills. ABs reveals PH 7.46 PCO2 51 PO2 58 FIO@ 100 % On 01/12/2020 patient was seen and examined in the ICU she is intubated sedated maintained on mechanical ventilation she is not on any pressure support there is no fever or chills she is receiving tube feeding. On 01/13/2020 patient was seen and examined in the ICU she is intubated sedated maintained on mechanical ventilation, she is maintained on 2 feeding glucose is elevated, dose of Levemir will be increased to 35 units daily, continue with sliding scale. ABG reveals pH 7.5 one pCO2 46 by mouth to 90 FiO2 of 60% On 01/14/2020 patient was seen and examined in the ICU she is intubated sedated maintained on mechanical ventilation she is also maintained on PEG tube feeding she had episodes of bradycardia cardiology were consulted and beta herminio were discontinued and patient was started on Norvasc patient also is having some minimal elevation in her liver enzymes pravastatin was discontinued. Otherwise no significant change in her condition patient remains on mechanical ventilation no weaning trials are scheduled for today. On 01/15/2020 patient was seen and examined in the ICU she is intubated sedated maintained on mechanical ventilation she is receiving PEG tube feeding. Case was discussed with Dr. Kamara ward nurse. Patient is stable and is improving she is alert when her sedation is decreased however her O2 saturation drops with sedation holidays. There is no fever or chills. Temperature is 97.7 pulse 60 respirations 17 blood pressure 143/74 ABG reveals a pH of 7.46 pCO2 52 by mouth to 52 FiO2 at this time is 40% On 01/16/2020 patient was seen and examined in the ICU she is intubated sedated maintained on mechanical ventilation, FiO2 and PEEP are being decreased gradually arterial blood gases reveal a pH of 7.46 pCO2 51 CO2 54 FiO2 of 40% patient is febrile temperature is 98.1 blood pressure 130/76 she is not on any pressure support she is receiving PEG tube feeding Objective - Vital Signs Vital signs: Vital Signs Temp 98.1 F 01/16/20 12:00 Pulse 67 01/16/20 13:00 Resp 16 01/16/20 13:00 BP 90/60 01/16/20 13:00 Pulse Ox 95 01/16/20 13:00 Intake & Output 01/15/20 01/16/20 01/16/20 18:59 06:59 18:59 Intake Total 740.011 815.517 575 Output Total 5411 445 6253 Balance -559.989 170.517 -750 Weight 82.6 kg 82.6 kg Intake: IV 120 130 70 0.9% NS 120 130 70 Intake, IV Titration 145.011 165.517 200 Amount Piperacillin-Tazobactam 3 100 .375 gm In Sodium Chloride 0.9% 100 ml @ 25 mls/hr IVPB Q8HR [facility] Rx# :[id number] Propofol 1,000 mg In 145.011 165.517 100 Empty Bag 1 bag @ Titrate IV .Q0M [facility] Rx#: [id number] Tube Feeding 385 490 245 Other 90 30 60 Output: Urine 4025 882 1533 Other: Voiding Method Indwelling Catheter Indwelling Catheter Indwelling Catheter # Voids 1 1 - Exam In general patient is intubated sedated maintained on mechanical ventilation HEENT head normocephalic and atraumatic Neck is supple no JVD no goiter no lymphadenopathy Chest exam reveals a few scattered crackles no wheezing Cardiac exam reveals regular heart sounds no gallops no murmurs Abdomen is soft nontender no organomegaly with normal bowel sounds Extremity exam reveals no edema no cyanosis or clubbing - Labs CBC & Chem 7: 01/16/20 05:31 01/16/20 04:10 Labs: Abnormal Lab Results - Last 24 Hours (Table) 01/14/20 01/15/20 01/15/20 Range/Units 05:31 04:44 15:41 ABG pH (7.35-7.45) ABG pCO2 (35-45) mmHg ABG pO2 (83-108) mmHg ABG HCO3 (21-25) mmol/L ABG Total CO2 (19-24) mmol/L ABG O2 Saturation (94-97) % Carbon Dioxide (22-30) mmol/L BUN (7-17) mg/dL Creatinine (0.52-1.04) mg/dL Glucose (74-99) mg/dL POC Glucose (mg/dL) 232 H (75-99) mg/dL Ferritin 433.2 H 520.7 H (10.0-291.0) ng/mL ALT (4-34) U/L Total Protein (6.3-8.2) g/dL Albumin (3.5-5.0) g/dL 01/15/20 01/16/20 01/16/20 Range/Units 20:04 00:06 03:07 ABG pH (7.35-7.45) ABG pCO2 (35-45) mmHg ABG pO2 (83-108) mmHg ABG HCO3 (21-25) mmol/L ABG Total CO2 (19-24) mmol/L ABG O2 Saturation (94-97) % Carbon Dioxide (22-30) mmol/L BUN (7-17) mg/dL Creatinine (0.52-1.04) mg/dL Glucose (74-99) mg/dL POC Glucose (mg/dL) 207 H 177 H 173 H (75-99) mg/dL Ferritin (10.0-291.0) ng/mL ALT (4-34) U/L Total Protein (6.3-8.2) g/dL Albumin (3.5-5.0) g/dL 01/16/20 01/16/20 01/16/20 Range/Units 04:10 04:10 05:45 ABG pH 7.46 H (7.35-7.45) ABG pCO2 51 H (35-45) mmHg ABG pO2 54 L* (83-108) mmHg ABG HCO3 36 H (21-25) mmol/L ABG Total CO2 38 H (19-24) mmol/L ABG O2 Saturation 88.5 L (94-97) % Carbon Dioxide 31 H (22-30) mmol/L BUN 26 H (7-17) mg/dL Creatinine 0.40 L (0.52-1.04) mg/dL Glucose 168 H (74-99) mg/dL POC Glucose (mg/dL) 157 H (75-99) mg/dL Ferritin 617.0 H (10.0-291.0) ng/mL ALT 47 H (4-34) U/L Total Protein 4.8 L (6.3-8.2) g/dL Albumin 2.2 L (3.5-5.0) g/dL 01/16/20 01/16/20 Range/Units 08:22 12:11 ABG pH (7.35-7.45) ABG pCO2 (35-45) mmHg ABG pO2 (83-108) mmHg ABG HCO3 (21-25) mmol/L ABG Total CO2 (19-24) mmol/L ABG O2 Saturation (94-97) % Carbon Dioxide (22-30) mmol/L BUN (7-17) mg/dL Creatinine (0.52-1.04) mg/dL Glucose (74-99) mg/dL POC Glucose (mg/dL) 135 H 218 H (75-99) mg/dL Ferritin (10.0-291.0) ng/mL ALT (4-34) U/L Total Protein (6.3-8.2) g/dL Albumin (3.5-5.0) g/dL Microbiology - Last 24 Hours (Table) 01/15/20 23:35 Gram Stain - Preliminary Sputum Sputum Culture - Preliminary Assessment and Plan Plan: #1 pneumonia likely related to COVID 19 viral pneumonitis, followed by pulmonary and infectious disease, condition has worsened over night patient is currently in ICU maintained on mechanical ventilation #2 severe hypernatremia, on admission corrected #3 mental status changes likely related to hypernatremia and metabolic encephalopathy related to infection #4 acute hypoxic respiratory failure related to pneumonia, requiring oxygen at 4 L nasal cannula at this time #5 underlying history of hypertension #6 underlying history of COPD #7 underlying history of insulin-dependent diabetes mellitus, insulin dose adjusted today Levemir increased to 35 units daily #8 underlying history of stroke with right sided paralysis #9 chronic dysphagia and aspiration requiring PEG tube feeding #10 underlying history of atrial fibrillation maintained on Xarelto #11 vaginal bleeding, at this time will monitor closely, will check daily CBC, and monitor for amount of bleeding. Once her current illness has subsided, will investigate further with pelvic ultrasound and [employer]IST[employer] MANAGER consult. #12 hyperkalemia, corrected At this time patient is into in the intensive care unit, no change in condition since yesterday She is intubated sedated maintained on mechanical ventilation Consultation for pulmonary and infectious disease requested in the emergency room and are following patient's No significant change in condition over the last few days awaiting possible weaning trials in the next 1-2 days Prognosis is guarded due to multiple underlying comorbid conditions
[2020-01-16 16:05] LABS: Glucose,Whole Blood 248 mg/dL (75-99)
[2020-01-16 17:38] LABS: Glucose,Whole Blood 305 mg/dL (75-99)
[2020-01-16] MEDS: INSULIN DETEMIR (LEVEMIR) 100 UNIT/ML SYR SQ SCH (20:33)
[2020-01-16 20:40] LABS: Glucose,Whole Blood 231 mg/dL (75-99)
--- NOTE | 2020-01-16 21:23 | PN ---
PROGRESS NOTE DATE OF SERVICE: 01/16/2020 REASON FOR FOLLOWUP: Pneumonia. INTERVAL HISTORY: The patient is currently afebrile. The patient remains intubated, sedated on the vent. He is hemodynamically stable, not on pressor support. FiO2 is currently at 60%. No other changes reported by the nursing staff. PHYSICAL EXAMINATION: Blood pressure 113/66, pulse of 68, temperature 98.5. She is 98% on 60% FiO2. General description is an elderly female lying in bed in no distress. RESPIRATORY SYSTEM: Unlabored breathing with decreased breath sounds at the base. No wheeze. HEART: S1, S2. Regular rate and rhythm. ABDOMEN: Soft. No tenderness. LABS: Hemoglobin is 13, white count 7.5, creatinine 0.40. DIAGNOSTIC IMPRESSION AND PLAN: Patient with acute respiratory failure which is multifactorial in this patient with concern for possible aspiration pneumonitis. Initially this patient showed only Deloris, with worsening of the x-ray. Repeat sputum has been ordered; those will be followed. Keep the patient on Zosyn and monitor her clinical course closely. MMODL / IJN: [id number] /
[2020-01-16 23:50] LABS: Glucose,Whole Blood 244 mg/dL (75-99)
[2020-01-17] MEDS: INSULIN ASPART (NovoLOG) 100 UNIT/ML VIAL SQ SCH ×7 (00:08→23:57)
[2020-01-17] MEDS: PROPOFOL 1,000 MG in EMPTY BAG 1 BAG IV SCH ×3 (02:41→15:40)
[2020-01-17 04:30] LABS: Glucose,Whole Blood 184 mg/dL (75-99)
[2020-01-17 04:36] LABS: Basophils % (A) 0 %; Eosinophils # (A) 0.2 k/uL (0-0.7); Eosinophils % (A) 2 %; HCT 41.6 % (34.0-46.0); HGB 13.9 gm/dL (11.4-16.0); Lymphocytes # (A) 1.5 k/uL (1.0-4.8); Lymphocytes % (A) 20 %; MCH 30.9 pg (25.0-35.0); MCHC 33.4 g/dL (31.0-37.0); MCV 92.4 fL (80.0-100.0); Mean Platelet Volume 11.1; Monocytes # (A) 0.5 k/uL (0-1.0); Monocytes % (A) 6 %; Neutrophils # (A) 5.1 k/uL (1.3-7.7); Neutrophils % (A) 69 %; Platelet Count 116 k/uL (150-450); RDW 14.4 % (11.5-15.5); WBC 7.4 k/uL (3.8-10.6)
[2020-01-17 05:19] LABS: ABG Base Excess 12.8 mmol/L; ABG HCO3 36 mmol/L (21-25); ABG PCO2 49 mmHg (35-45); ABG PH 7.48 (7.35-7.45); ABG PO2 90 mmHg (83-108); ABG TCO2 38 mmol/L (19-24); Allen Test Performed? Yes
[2020-01-17 05:42] LABS: ALT 43 U/L (4-34); AST 25 U/L (14-36); African American GFR (CKD) >90 (>60 ml/min/1.73 sqM); Albumin 2.9 g/dL (3.5-5.0); Alkaline Phosphatase 72 U/L (38-126); Anion Gap 3 mmol/L; Blood Urea Nitrogen 30 mg/dL (7-17); C Reactive Protein 5.3 mg/L (<10.0); Carbon Dioxide 34 mmol/L (22-30); Chloride 101 mmol/L (98-107); Glucose 191 mg/dL (74-99); LDH 508 U/L (313-618); Non-African American GFR(CKD) >90 (>60 ml/min/1.73 sqM); Potassium 3.3 mmol/L (3.5-5.1); Sodium 138 mmol/L (137-145); Total Bilirubin 0.4 mg/dL (0.2-1.3)
[2020-01-17] MEDS: POTASSIUM CHLORIDE ER 20 MEQ TAB.ER PO SCH ×2 (06:22→08:54)
[2020-01-17] MEDS ORDERED: FUROSEMIDE 10 MG/ML 4 ML VIAL IV STA (07:46)
[2020-01-17 07:54] LABS: Glucose,Whole Blood 135 mg/dL (75-99)
[2020-01-17] MEDS: ALBUTEROL HFA INHALER INHALATION SCH ×4 (07:54→20:16)
--- NOTE | 2020-01-17 08:07 | XR ---
EXAMINATION TYPE: XR chest 1V portable DATE OF EXAM: 01/17/2020 Comparison: 01/15/2020 Clinical History: 79-year-old female Tube placement Findings: ET tube satisfactory. Left PICC tip within the right atrium. Heart mildly enlarged. Relative upper naomi ng lucencies. Small bilateral pleural effusions with bibasilar patchy opacity persists. Impression: Continued bibasilar atelectasis and/or consolidation along with small effusions. Possible background COPD.
--- NOTE | 2020-01-17 08:24 | P.PN ---
Subjective Progress Note Date: 01/17/20 Principal diagnosis: Acute hypoxic respiratory failure on ventilator COVID 19 pneumonia Aspiration pneumonia likely mixed bacterial and/or or gram-negative related Chronic right-sided weakness dysphagia and aphasia status post PEG tube COPD Insulin-dependent diabetes mellitus uncontrolled Hypertension hypertensive cardiovascular disease Chronic atrial fibrillation on anticoagulation off of his Xeralto, has been initiated on Lovenox twice a day 01/17/2020, patient seen eval reexamined during the rounds labs reviewed medications reviewed radiographic studies reviewed as well, patient is still on propofol 25 mics she gets on comfortable if lowers it down we'll keep it for now, ventilator setting is stable, pO2 has improved can go down oxygen to 50 and subsequently to 40%, will keep PEEP 8, peak airway pressure on around 30, suggestive of fairly good compliance, we'll continue to diurese patient after 40 mg of extra Lasix yesterday without 1.5 L of urine repeat that again, to feed being tolerated very well no significant diarrhea has been noted respiratory secretions are minimal, critical care time 35 minutes 01/16/2020, patient seen eval examined during the rounds labs reviewed medications reviewed care plan discussed with the primary service, patient FiO2 is slightly up to percent otherwise PEEP remains 8, tidal volume is 500 with a rate of 16 ventilation appears to be fairly adequate oxygen however remains low review of the data revealed that patient is slightly even and positive in last 48 hours will benefit from some diuresis and given extra Lasix today continue to feed, continue sedation currently on propofol 25 mics, x-ray is not done today, arterial blood gas reviewed labs reviewed. Current care time spent 35 minutes 01/15/2020, patient seen eval examined during the rounds labs reviewed medications reviewed care plan discussed with the staff at length, patient remains on full ventilator support with suctioning and movement she desaturates however similar episodethis morning at the time of chest x-ray when she was repositioned suction and transient desaturation happens arterial blood gas was done at the same time however after that on 25 mics of propofol she has been stable saturation have been 98-99% plan is to come down the oxygen to 40% will keep monitor PPEP 10 and if oxygen remains stable on 40% will go down to 8 by and of the day, hemodynamic status stable blood pressure is stable and did not require IV hydralazine, heart rate is improve into high 50s and low 60s, patient is off of clonidine and Lopressor now remains off of vasopressors, tolerating the feed well, urine output is good arterial blood gases reviewed adequate ventilation chest x-ray reviewed overall essentially stable with small bilateral pleural effusion, overall plan is to come down to oxygen of 40% and PEEP of 5 and next 24-48 hours then will initiate spontaneous breathing trials keep ins and outs even are negative side continue current dose of Solu-Medrol and continue antibiotics critical care time 35 minutes 01/14/2020, patient seen eval reexamined during the rounds labs reviewed medications reviewed, chest x-ray reviewed as well, patient remains sedated with propofol drip 25 mics, she is bradycardic heart rate is 40-45 with slightly elevated blood pressure 160-170 breathing with vent rate was initially 20 have been reduced to 16, tidal volume is 450 keep is 15 has been lowered down to 10 saturation is 95-96% chest x-ray reviewed right lower lobe infiltrate and small effusions seen overall lung parenchyma and infiltrate appears stable and continued to improve, patient is tolerating every feed very well labs reviewed CBC within normal limits chemistry revealed ABG combination of metabolic and respiratory alkalosis ventilator has been adjusted Lasix have been lowered down to once a day some contribution from his steroids presents which will be reduced to 40 daily, patient will be observed how she does with lower PEEP, we will start hydralazine IV for blood pressure control, continue to hold Lopressor and also hold clonidine we will get cardiovascular services opinion consultation, patient has been tolerating tube feed very well respiratory secretions are minimal adequate urine output has been present 01/13/2020, patient seen eval reexamined during the rounds labs reviewed medications reviewed radiographic studies reviewed as well patient FiO2 has been brought down to 60% she is on 15 of PEEP, her oxygen saturation 97% she is off of vasopressors, she is on 30 mics of propofol somewhat bradycardic will decrease of propofol to 20 mics, we'll continue to bring down the oxygen to 40% as tolerated in during next 24 hours, then will come on down and PEEP. Respiratory secretions are minimal to feed is tolerating well mental status not much change, developed bradycardia her beta blockers are being held, her chest x-ray showing small pleural effusion bilaterally and basal atelectasis and consolidation, tubes are stable, she remains on Solu-Medrol 40 every 12 hourly and Lovenox also 40 q 12, it appears that Solu-Medrol has been helping in improving and able to come down on oxygen, peak airway pressure 30, urine output has been adequate patient has some component of respiratory and metabolic alkalosis, we will lower down the Lasix to 20 mg daily also will decrease the tidal volume to 450, care time spent 35 minuteto 01/12/2020, patient seen and evaluated today care plan discussed with the nurse at length radiographic studies and lab studies reviewed, patient remains on assist control mode rate of 20 breathing about 24 26th of patient remains at PEEP of 10 FiO2 of 80% oxygen saturation are 90-94% within increase the PEEP to 15 as blood pressure is stable and titrated oxygen down to 70-60% next 24 hours chest x-ray reviewed continued to show same pattern but overall condition appears to improve to feed as tolerated very well, CBC is normal arterial blood gases history of hypercapnic hypoxic respiratory failure, bicarb is slightly going up the patient seems to be tolerating steroid well however sugars are higher side remains on insulin 01/11/2020, patient seen eval examined during the rounds labs reviewed medications reviewed radiographic studies reviewed as well patient remains sedated with 40 mics of propofol, she'll decrease it to 30 mics off of levo fed drip, patient did start some levo fed last night but now off, noted that FiO2 has been escalated to 100% and PEEP is down to 5, we'll increase PEEP back to 10 and titrated oxygen down as tolerated to bring it down to goal of 70% in next 24 hours slowly will decrease his sedation as well, 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, left-sided slight worsening has been noted with small left- sided pleural effusion likely fluid overload some of the fluid is present on the right side as well patient medications have been reviewed, patient is on Norvasc 10 mg along with Catapres and Ogestrel, patient has been started on IV steroids given hypoxia And a Difficult Reports from [place] That Steroids Have Been Helpful in Improving Oxygenation but at the Cost of Increasing Shedding Time However, Terence's Slightly Positive Today, Patient Has Received Lasix, ABG Reviewed pH Is 7.46 PCO2 Is 51 PO2 Is 58 That Is on PEEP of 5 and 100% Oxygen, Her LDH Is up to 926 Ferritin C-Reactive Protein and IL6 Levels Are Pending 01/10/2020, patient seen and evaluated examined during the rounds labs reviewed medications reviewed care plan discussed with RN, patient FiO2 has been down to 60% and peak airway pressures are stable, patient remains on assist control mode rate of 20 breathing about 25-28 oxygen saturation 93% she is 10, spontaneous tidal volume on about 400 500 range patient has been getting his spontaneous br eathing trial and she is been sedated with propofol drip very small dose of levofed is still going to come patient is on broad-spectrum antibiotics to feed is going on patient is on half normal saline as well chest x-ray shows diffuse infiltrate stable lines 01/08/2020, patient seen and evaluated examined in ICU patient remains on current ventilator with full ventilatory response be clear pressure slightly better than yesterday ranging from 30-32, patient is down to 70% now PEEP of 10 assist control is 20 breathing about 25-26 tidal volume is 400 this morning ABG reviewed ventilation is adequate slight hypoxia was noted but however sats at that time when the gas were done were 91-92% since that time patient has received 20 of Lasix and put out about 550 mL of urine and saturation is impro adan to 96%, patient is afebrile, patient would need a PICC line tomorrow, remains on propofol dose has been escalated today, tolerating to feed well, sugars are in low 200 range, LDH is 817 C-reactive protein is 25.2 on the they are showing downward trend her plan discussed with the staff at length will increase her Lasix to 20 mg daily will keep patient on 70% and PEEP of 10 and today attempt to titrate oxygen down again tomorrow chest x-ray showed some improved aviation compared to prior study stable ET tube, and seems to tolerating Lasix well any significant compromise in hemodynamic status critical care time spent 35 minutes 01/07/2020, patient does live increase respiratory distress earlier this morning oxygen remains very poor saturation dropped down into 70s to 80s percent, pO2 was only 46 patient was intubated and placed in ICU where patient was seen eval reexamined, patient remains on levo fed drip on 5 mics, her hemodynamic is slightly better systolic blood pressure ranging from 100 210, patient is on propofol 20, vent setting include assist control of 20 tidal volume of 400, PEEP of 10, FiO2 have been lowered down to 90%, ABG and laboratory data data reviewed chest x-ray reviewed mild bilateral interstitial infiltrate consistent with viral pneumonia, patient is being started on Lovenox twice a day continued on tube feed will increase gentle hydration, blood glucose is running slightly high will increase the Levemir, critical care time spent 45 minutes 01/06/2020, patient seen and evaluated examined remains on nonrebreather mask still have problems associated with shortness of breath, care plan discussed with RN will continue current plan of care patient can be started on as needed breathing treatments will continue to gently diurese 01/05/2020, patient seen and evaluated examined remains on nonrebreather mask, nonverbal and noncommunicative essentially no significant change in neurological condition, she remained afebrile with stable hemodynamics her oxygen saturations improved to 96% on repeat nonrebreather mask 01/04/2020, patient laying on the bed on 100% nonrebreather mask and breathing is slightly short of breath, patient is on bronchodilator along with antibiotics, has been on Lasix as well, patient remains on Zosyn, labs reviewed white cell count is normal, labs reviewed, glucose is 342, BUN/creatinine is 25 and 0.7, stool for C. difficile is negative 01/02/2020, patient seen eval examined during the rounds patient has a rapid response this morning with the shortness of breath she however responded well with Lasix, Sands's catheter has been placed, shortness of breath have improved though, on 4 L saturation is 92% low-grade temperature of 99 is present, her chest x-ray assistive of the left lower lobe pneumonia and right perihilar infiltrate prominent lung markings likely fluid overload, Objective - Vital Signs Vital signs: Vital Signs Temp 98.0 F 01/17/20 04:00 Pulse 60 01/17/20 07:00 Resp 16 01/17/20 07:00 BP 141/77 01/17/20 07:00 Pulse Ox 98 01/17/20 07:00 Intake & Output 01/16/20 01/17/20 01/17/20 18:59 06:59 18:59 Intake Total 734.758 795 45 Output Total 1615 590 50 Balance -880.242 205 -5 Weight 82.6 kg 84.4 kg Intake: IV 120 220 10 0.9% NS 120 120 10 Piperacillin-Tazobactam 3 100 .375 gm In Sodium Chloride 0.9% 100 ml @ 25 mls/hr IVPB Q8HR [facility] Rx# :[id number] Intake, IV Titration 239.758 100 Amount Piperacillin-Tazobactam 3 100 .375 gm In Sodium Chloride 0.9% 100 ml @ 25 mls/hr IVPB Q8HR [facility] Rx# :[id number] Propofol 1,000 mg In 139.758 100 Empty Bag 1 bag @ Titrate IV .Q0M [facility] Rx#: [id number] Tube Feeding 315 385 35 Other 60 90 Output: Urine 1615 590 50 Other: Voiding Method Indwelling Catheter Indwelling Catheter - Exam - Neck Neck: no lymphadenopathy, no stridor - Respiratory Scattered rhonchi throughout, full ventilator support - Cardiovascular Regular rhythm and rate. S1 and S2 present, negative for S3, gallop or murmur. Trace edema to her bilateral lower extremities. - Gastrointestinal Abdomen soft and nondistended. - Integumentary Skin is warm and dry. No clubbing or cyanosis is present. Integumentary: no rash - Neurologic Sedated with propofol drip - Labs CBC & Chem 7: 01/17/20 04:23 01/17/20 04:23 Labs: Abnormal Lab Results - Last 24 Hours (Table) 01/14/20 01/15/20 01/16/20 Range/Units 05:31 04:44 04:10 Plt Count (150-450) k/uL ABG pH (7.35-7.45) ABG pCO2 (35-45) mmHg ABG HCO3 (21-25) mmol/L ABG Total CO2 (19-24) mmol/L Potassium (3.5-5.1) mmol/L Carbon Dioxide (22-30) mmol/L BUN (7-17) mg/dL Creatinine (0.52-1.04) mg/dL Glucose (74-99) mg/dL POC Glucose (mg/dL) (75-99) mg/dL Ferritin 433.2 H 520.7 H 617.0 H (10.0-291.0) ng/mL ALT (4-34) U/L Total Protein (6.3-8.2) g/dL Albumin (3.5-5.0) g/dL 01/16/20 01/16/20 01/16/20 Range/Units 08:22 12:11 15:54 Plt Count (150-450) k/uL ABG pH (7.35-7.45) ABG pCO2 (35-45) mmHg ABG HCO3 (21-25) mmol/L ABG Total CO2 (19-24) mmol/L Potassium (3.5-5.1) mmol/L Carbon Dioxide (22-30) mmol/L BUN (7-17) mg/dL Creatinine (0.52-1.04) mg/dL Glucose (74-99) mg/dL POC Glucose (mg/dL) 135 H 218 H 248 H (75-99) mg/dL Ferritin (10.0-291.0) ng/mL ALT (4-34) U/L Total Protein (6.3-8.2) g/dL Albumin (3.5-5.0) g/dL 01/16/20 01/16/20 01/16/20 Range/Units 17:37 20:39 23:47 Plt Count (150-450) k/uL ABG pH (7.35-7.45) ABG pCO2 (35-45) mmHg ABG HCO3 (21-25) mmol/L ABG Total CO2 (19-24) mmol/L Potassium (3.5-5.1) mmol/L Carbon Dioxide (22-30) mmol/L BUN (7-17) mg/dL Creatinine (0.52-1.04) mg/dL Glucose (74-99) mg/dL POC Glucose (mg/dL) 305 H 231 H 244 H (75-99) mg/dL Ferritin (10.0-291.0) ng/mL ALT (4-34) U/L Total Protein (6.3-8.2) g/dL Albumin (3.5-5.0) g/dL 01/17/20 01/17/20 01/17/20 Range/Units 04:23 04:23 04:28 Plt Count 116 L (150-450) k/uL ABG pH (7.35-7.45) ABG pCO2 (35-45) mmHg ABG HCO3 (21-25) mmol/L ABG Total CO2 (19-24) mmol/L Potassium 3.3 L (3.5-5.1) mmol/L Carbon Dioxide 34 H (22-30) mmol/L BUN 30 H (7-17) mg/dL Creatinine 0.47 L (0.52-1.04) mg/dL Glucose 191 H (74-99) mg/dL POC Glucose (mg/dL) 184 H (75-99) mg/dL Ferritin (10.0-291.0) ng/mL ALT 43 H (4-34) U/L Total Protein 6.0 L (6.3-8.2) g/dL Albumin 2.9 L (3.5-5.0) g/dL 01/17/20 01/17/20 Range/Units 05:15 07:53 Plt Count (150-450) k/uL ABG pH 7.48 H (7.35-7.45) ABG pCO2 49 H (35-45) mmHg ABG HCO3 36 H (21-25) mmol/L ABG Total CO2 38 H (19-24) mmol/L Potassium (3.5-5.1) mmol/L Carbon Dioxide (22-30) mmol/L BUN (7-17) mg/dL Creatinine (0.52-1.04) mg/dL Glucose (74-99) mg/dL POC Glucose (mg/dL) 135 H (75-99) mg/dL Ferritin (10.0-291.0) ng/mL ALT (4-34) U/L Total Protein (6.3-8.2) g/dL Albumin (3.5-5.0) g/dL Microbiology - Last 24 Hours (Table) 01/15/20 23:35 Gram Stain - Preliminary Sputum Sputum Culture - Preliminary Assessment and Plan Assessment: Sinus bradycardia with hypertension, monitor off of Lopressor and clonidine, c ontinue hydralazine IV as needed consult cardiovascular disease and associated patient Norvasc dose has been escalated patient is manifesting adequate hemodynamics heart rate is in 60s and blood pressure is adequate Acute hypoxic respiratory failure on ventilator COVID 19 pneumonia with some improvement in oxygenation Ventilator adjustment now patient is on 60 % oxygen but will be titrated oxygen down as tolerated, her peak airway pressures are stable high 20s , will hold peep in next 24 hours and then start coming down on oxygen to 40% as tolerated over next 24 hours Continue I's and Os negative side monitor urine output, we'll continue the Lasix to 20 mg daily and given extra dose of 40 today Patient is getting trial of steroids seems to be tolerating well thus hyperglycemia is some improvement in chest x-ray and oxygenation, there is some anecdotal reports coming from [place] it helps oxygenation however with the cost of prolonged shedding of viral particles we'll continue it to once daily, will increase the Lantus to 40 Aspiration pneumonia likely mixed bacterial and/or or gram-negative related, continue Zosyn Bilateral small pleural effusion multifactorial process Chronic right-sided weakness dysphagia and aphasia status post PEG tube COPD Insulin-dependent diabetes mellitus uncontrolled Hypertension hypertensive cardiovascular disease, will decrease Norvasc to 5 mg Chronic atrial fibrillation on anticoagulation Lovenox Critical care time 35 minutes Plan: Titrated oxygen down as as tolerated with slow lowering of PEEP, will be lowered subsequently as noted above Anticoagulation. Lovenox twice a day Continue Norvasc other hemodynamic parameters as noted above Lowering of IV steroids for adjustment of insulin as needed Observe off of levo fed Gentle diuresis will keep her negative for another 24 hours Continue tube feed Ventilator adjustment Continue to check inflammatory labs for covid19 as needed Monitor sodium levels closely Continue respiratory and contact isolation Time with Patient: Greater than 30
[2020-01-17] MEDS: NOREPINEPHRINE 4 MG in SODIUM CHLORIDE 0.9% 250 ML IV SCH ×2 (08:47→20:50)
[2020-01-17] MEDS: PIPERACILLIN-TAZOBACTAM 3.375 GM in SODIUM CHLORIDE 0.9% 100 ML IVPB SCH ×3 (08:50→23:43)
[2020-01-17] MEDS: FUROSEMIDE 10 MG/ML 2 ML VIAL IV SCH (08:51)
[2020-01-17] MEDS: CHLORHEXIDINE GLUCONATE 15 ML CUP MUCOUS MEM SCH ×2 (08:52→20:09)
[2020-01-17] MEDS: ZINC SULFATE 220 MG CAP PO SCH (08:53)
[2020-01-17] MEDS: methylPREDNISolone SOD SUCCI 40 MG/ML 1 ML VIAL IV SCH (08:53)
[2020-01-17] MEDS: amLODIPine 10 MG TAB PO SCH (08:54)
[2020-01-17] MEDS: ENOXAPARIN 40 MG/0.4 ML SYRINGE SQ SCH ×2 (08:54→20:09)
[2020-01-17] MEDS: CHOLECALCIFEROL 1,000 UNIT TAB PEG/G-TUBE SCH (08:54)
[2020-01-17] MEDS: LISINOPRIL 2.5 MG TAB PEG/G-TUBE SCH (08:54)
[2020-01-17] MEDS: PANTOPRAZOLE 40 MG/10 ML VIAL IV SCH (08:54)
[2020-01-17 11:10] LABS: Ferritin 391.6 ng/mL (10.0-291.0)
[2020-01-17 11:59] LABS: Glucose,Whole Blood 169 mg/dL (75-99)
--- NOTE | 2020-01-17 16:52 | PN ---
PROGRESS NOTE DATE OF SERVICE: 01/17/2020 REASON FOR FOLLOWUP: Pneumonia. INTERVAL HISTORY: The patient is currently afebrile. The patient is hemodynamically stable, not requiring pressor support. FiO2 is currently down to 50. No significant purulent secretion or any diarrhea reported by the nursing staff. Tolerating her tube feeds. PHYSICAL EXAMINATION: Blood pressure 129/64 with a pulse of 72, temperature 97.9. She is 92% on 50% FiO2. General description is an elderly female lying in bed in no distress. RESPIRATORY SYSTEM: Unlabored breathing. Clear to auscultation anteriorly. HEART: S1, S2. Regular rate and rhythm. ABDOMEN: Soft. No distention. LABS: Hemoglobin 13.9, white count 7.4, BUN of 30, creatinine 0.47. Repeat sputum now showing Gram-negative bacilli. DIAGNOSTIC IMPRESSION AND PLAN: Patient with Gram-negative pneumonia. Patient is covered with Zosyn, adjusting antibiotic further based on the culture report and monitor clinical course closely. MMODL / IJN: [id number] /
[2020-01-17 16:56] LABS: Glucose,Whole Blood 236 mg/dL (75-99)
--- NOTE | 2020-01-17 17:55 | P.PN ---
Subjective Progress Note Date: 01/17/20 Soledad Enriquez, is an 79-year-old female who [facility] at [facility] time will was noticed to have worsening mental status and persistent cough, patient started having elevated temperature up to 101 at that point she was sent to [facility] emergency room she had testing for influenza A and B which were negative she also had an instant test for Covid 19 which was positive she was admitted to telemetry floor she was started on IV Zithromax pulmonary and infectious disease consultation were requested. Patient also had evidence of dehydration with hypernatremia elevated sodium level at 151. Patient has a known history of multiple medical problems including history of stroke with right sided paralysis, history of aspiration patient has a PEG tube for feeding, history of insulin-dependent diabetes mellitus, history of hypertension, history of hyperlipidemia, and history of paroxysmal atrial fibrillation. On presentation patient had a temperature of 101 pulse of 82 respiration 18 blood pressure 119/63 and pulse ox of 91% on 4 L nasal cannula. White blood count was 4.8 chest x-ray revealed evidence of left basilar opacity. On 12/30/2019 patient was seen and examined on the medical floor she is somnolent responsive in no apparent distress there is low-grade fever temperature is 100.8 there is no chills no headache or dizziness no chest pain no shortness of breath no cough no nausea or vomiting no abdominal pain no diarrhea and no burning was urination. Nurse noticed some vaginal bleeding, hemoglobin is stable at 15. Pulse ox is 96% on 4 L nasal cannula , On 12/31/2019 patient was seen and examined on the medical floor she is somnolent responsive in no apparent distress, her fever is subsiding temperatures this morning 99 pulse ox is 92% on 4 L nasal cannula, patient is denying any complaints at this time however, she does not seem to be listening much to the questions, and she goes back to sleep fast. White blood count today is normal at 4.1 hemoglobin is 15.2 potassium is elevated at 5.8 On 01/01/2020 patient was seen and examined on the medical floor she is more alert and responsive today there is no fever or chills no headache or dizziness no chest pain no shortness of breath no cough no nausea or vomiting no abdominal pain no diarrhea and no urinary symptoms, she is receiving feeding through PEG tube at night, glucose level is elevated again, will increase Lantus dose to 25 units at bedtime, and continue was inserted into sliding scale. Patient is receiving oxygen via nasal cannula at 4 L her pulse ox is 92% patient does not s eem to be in any distress her temperature heart rates respiration rate and blood pressure are in normal range white blood count is 3.8 potassium 4.8 On 01/02/2020 patient was seen and examined on the medical floor she is alert and responsive in no apparent distress. This morning patient had an episode of shortness of breath with decreased O2 sat duration A team was called patient received IV Lasix Sands catheter was inserted chest x-ray was done. Currently patient is doing better pulse ox is 92% on 4 L nasal cannula. On 01/03/2020 patient was seen and examined on the medical floor she is alert responsive in no apparent distress, her pulse ox is 92% on 6 L nasal cannula she is afebrile blood pressure is 123/87 chest x-ray done yesterday reveals left lower lobe infiltrate and right perihilar infiltrates. Without significant improvement from prior x-rays. On 01/04/2020 patient was seen and examined on the medical floor she is more alert and responsive today he denies any pain or discomfort, her pulse ox was lower today and she was switched to a nonrebreather mask On 01/05/2020 patient was seen and examined on the medical floor, she is alert and responsive at this time, she is tolerating tube feeding well, she denied any pain or discomfort. On 01/06/2020 patient was seen and examined on the medical floor, she is alert responsive in no apparent distress she is answering a few questions with yes or no or nodding her head she is tolerating tube feeding well she is denying any pain or discomfort at this time, her temperature is 98.1 blood pressure 135/75 pulse ox 90% on nonrebreather mask. On 01/07/2020 Patient was seen and examined in the ICU. Around 7:00 am this morning patient was on the floor she was having worsening shortness of breath and using accessory muscles she was on nonrebreather mask and her O2 sat duration was 88% Dr. Caba paint line supervisor was contacted patient was transferred to ICU she was intubated sedated and started on mechanical ventilation, she was also started on levophed for blood pressure support. On 01/08/2020 Patient was seen and examined in the ICU. She is intubated sedated maintained on mechanical ventilation, she is still on a small dose of Levophed. She is receiving tube feeding via PEG tube. Her ABG reveals a pH of 7.4 to pCO2 45 by mouth to 59 FiO2 is 70% On 01/09/2020 patient was seen and examined in the ICU she remains intubated sedated maintained on mechanical ventilation, she remains on a small dose of levophed for pressure support. ABG reveals a pH of 7.4 pCO2 47 PO2 77 with FiO2 of 70% her temperature is 90.8 pulse 69 respiration 27 blood pressure 112/70 On 01/10/2020 patient was seen and examined in the ICU she is intubated sedated maintained on mechanical ventilation, temperature is 97.9 pulse 62 respiration 20 blood pressure 121/73 ABG reveals pH of 7.39 pCO2 52 by mouth to 59 FiO2 is 60% no significant change in condition since yesterday patient is receiving tube feeding. She was not seen by critical care yesterday due to personal reasons per nurse. At this time will change consult for pulmonary and critical care to Dr. Perez. On 01/11/2020 Patient was seen and examined in the ICU she is intubated, sedated, maintained on mechanical ventilation. there is no fever or chills. ABs reveals PH 7.46 PCO2 51 PO2 58 FIO@ 100 % On 01/12/2020 patient was seen and examined in the ICU she is intubated sedated maintained on mechanical ventilation she is not on any pressure support there is no fever or chills she is receiving tube feeding. On 01/13/2020 patient was seen and examined in the ICU she is intubated sedated maintained on mechanical ventilation, she is maintained on 2 feeding glucose is elevated, dose of Levemir will be increased to 35 units daily, continue with sliding scale. ABG reveals pH 7.5 one pCO2 46 by mouth to 90 FiO2 of 60% On 01/14/2020 patient was seen and examined in the ICU she is intubated sedated maintained on mechanical ventilation she is also maintained on PEG tube feeding she had episodes of bradycardia cardiology were consulted and beta herminio were discontinued and patient was started on Norvasc patient also is having some minimal elevation in her liver enzymes pravastatin was discontinued. Otherwise no significant change in her condition patient remains on mechanical ventilation no weaning trials are scheduled for today. On 01/15/2020 patient was seen and examined in the ICU she is intubated sedated maintained on mechanical ventilation she is receiving PEG tube feeding. Case was discussed with Dr. Kamara paint line supervisor. Patient is stable and is improving she is alert when her sedation is decreased however her O2 saturation drops with sedation holidays. There is no fever or chills. Temperature is 97.7 pulse 60 respirations 17 blood pressure 143/74 ABG reveals a pH of 7.46 pCO2 52 by mouth to 52 FiO2 at this time is 40% On 01/16/2020 patient was seen and examined in the ICU she is intubated sedated maintained on mechanical ventilation, FiO2 and PEEP are being decreased gradually arterial blood gases reveal a pH of 7.46 pCO2 51 CO2 54 FiO2 of 40% patient is febrile temperature is 98.1 blood pressure 130/76 she is not on any pressure support she is receiving PEG tube feeding. On 01/17/2020 patient was seen and examined in the ICU she is intubated sedated maintained on mechanical ventilation, vital exam reveals a temperature of 99.2 pulse 76 respiration 16 blood pressure 117/57 white blood count is 7.4 hemoglobin 13.9 platelets count 116 BUN is 30 creatinine 0.47 Arterial blood gas reveals a pH of 7.48 pCO2 49 by mouth to 90 on FiO2 of 60% Objective - Vital Signs Vital signs: Vital Signs Temp 99.2 F 01/17/20 16:00 Pulse 67 01/17/20 17:00 Resp 16 01/17/20 17:00 BP 118/66 01/17/20 17:00 Pulse Ox 94 L 01/17/20 17:00 Intake & Output 01/16/20 01/17/20 01/17/20 18:59 06:59 18:59 Intake Total 734.758 795 882.586 Output Total 7087 467 0824 Balance -880.242 205 -752.414 Weight 82.6 kg 84.4 kg 84.4 kg Intake: IV 120 220 250 0.9% NS 120 120 50 Piperacillin-Tazobactam 3 100 200 .375 gm In Sodium Chloride 0.9% 100 ml @ 25 mls/hr IVPB Q8HR [facility] Rx# :[id number] Intake, IV Titration 239.758 100 76.586 Amount Piperacillin-Tazobactam 3 100 .375 gm In Sodium Chloride 0.9% 100 ml @ 25 mls/hr IVPB Q8HR [facility] Rx# :[id number] Propofol 1,000 mg In 139.758 100 76.586 Empty Bag 1 bag @ Titrate IV .Q0M [facility] Rx#: [id number] Tube Feeding 315 385 406 Other 60 90 150 Output: Urine 9628 507 6095 Other: Voiding Method Indwelling Catheter Indwelling Catheter Indwelling Catheter - Exam In general patient is intubated sedated maintained on mechanical ventilation HEENT head normocephalic and atraumatic Neck is supple no JVD no goiter no lymphadenopathy Chest exam reveals a few scattered crackles no wheezing Cardiac exam reveals regular heart sounds no gallops no murmurs Abdomen is soft nontender no organomegaly with normal bowel sounds Extremity exam reveals no edema no cyanosis or clubbing - Labs CBC & Chem 7: 01/17/20 04:23 01/17/20 12:36 Labs: Abnormal Lab Results - Last 24 Hours (Table) 01/16/20 01/16/20 01/17/20 Range/Units 20:39 23:47 04:23 Plt Count 116 L (150-450) k/uL ABG pH (7.35-7.45) ABG pCO2 (35-45) mmHg ABG HCO3 (21-25) mmol/L ABG Total CO2 (19-24) mmol/L Potassium (3.5-5.1) mmol/L Carbon Dioxide (22-30) mmol/L BUN (7-17) mg/dL Creatinine (0.52-1.04) mg/dL Glucose (74-99) mg/dL POC Glucose (mg/dL) 231 H 244 H (75-99) mg/dL Ferritin (10.0-291.0) ng/mL ALT (4-34) U/L Total Protein (6.3-8.2) g/dL Albumin (3.5-5.0) g/dL 01/17/20 01/17/20 01/17/20 Range/Units 04:23 04:28 05:15 Plt Count (150-450) k/uL ABG pH 7.48 H (7.35-7.45) ABG pCO2 49 H (35-45) mmHg ABG HCO3 36 H (21-25) mmol/L ABG Total CO2 38 H (19-24) mmol/L Potassium 3.3 L (3.5-5.1) mmol/L Carbon Dioxide 34 H (22-30) mmol/L BUN 30 H (7-17) mg/dL Creatinine 0.47 L (0.52-1.04) mg/dL Glucose 191 H (74-99) mg/dL POC Glucose (mg/dL) 184 H (75-99) mg/dL Ferritin 391.6 H (10.0-291.0) ng/mL ALT 43 H (4-34) U/L Total Protein 6.0 L (6.3-8.2) g/dL Albumin 2.9 L (3.5-5.0) g/dL 01/17/20 01/17/20 01/17/20 Range/Units 07:53 11:57 16:54 Plt Count (150-450) k/uL ABG pH (7.35-7.45) ABG pCO2 (35-45) mmHg ABG HCO3 (21-25) mmol/L ABG Total CO2 (19-24) mmol/L Potassium (3.5-5.1) mmol/L Carbon Dioxide (22-30) mmol/L BUN (7-17) mg/dL Creatinine (0.52-1.04) mg/dL Glucose (74-99) mg/dL POC Glucose (mg/dL) 135 H 169 H 236 H (75-99) mg/dL Ferritin (10.0-291.0) ng/mL ALT (4-34) U/L Total Protein (6.3-8.2) g/dL Albumin (3.5-5.0) g/dL Microbiology - Last 24 Hours (Table) 01/15/20 23:35 Gram Stain - Preliminary Sputum Sputum Culture - Preliminary Gram Neg Bacilli Assessment and Plan Plan: #1 pneumonia likely related to COVID 19 viral pneumonitis, followed by pulmonary and infectious disease, condition has worsened over night patient is currently in ICU maintained on mechanical ventilation #2 severe hypernatremia, on admission corrected #3 mental status changes likely related to hypernatremia and metabolic encephalopathy related to infection #4 acute hypoxic respiratory failure related to pneumonia, requiring oxygen at 4 L nasal cannula at this time #5 underlying history of hypertension #6 underlying history of COPD #7 underlying history of insulin-dependent diabetes mellitus, insulin dose adjusted today Levemir increased to 35 units daily #8 underlying history of stroke with right sided paralysis #9 chronic dysphagia and aspiration requiring PEG tube feeding #10 underlying history of atrial fibrillation maintained on Xarelto #11 vaginal bleeding, at this time will monitor closely, will check daily CBC, and monitor for amount of bleeding. Once her current illness has subsided, will investigate further with pelvic ultrasound and [employer] SALES REPRESENTATIVE consult. #12 hyperkalemia, corrected At this time patient is into in the intensive care unit, no change in condition since yesterday She is intubated sedated maintained on mechanical ventilation Consultation for pulmonary and infectious disease requested in the emergency room and are following patient's No significant change in condition over the last few days awaiting possible weaning trials in the next 1-2 days Prognosis is guarded due to multiple underlying comorbid conditions
[2020-01-17 20:08] LABS: Glucose,Whole Blood 232 mg/dL (75-99)
[2020-01-17] MEDS: FERROUS SULFATE ORAL ELIXIR 300 MG/5 ML CUP PEG/G-TUBE SCH (20:09)
[2020-01-17] MEDS: INSULIN DETEMIR (LEVEMIR) 100 UNIT/ML SYR SQ SCH (20:10)
[2020-01-17 23:50] LABS: Glucose,Whole Blood 191 mg/dL (75-99)
[2020-01-18 03:19] LABS: Glucose,Whole Blood 99 mg/dL (75-99)
[2020-01-18] MEDS: INSULIN ASPART (NovoLOG) 100 UNIT/ML VIAL SQ SCH ×5 (03:31→21:05)
[2020-01-18 04:38] LABS: Basophils % (A) 0 %; Eosinophils # (A) 0.1 k/uL (0-0.7); Eosinophils % (A) 2 %; HCT 39.2 % (34.0-46.0); HGB 12.3 gm/dL (11.4-16.0); Hypochromasia Slight; Lymphocytes # (A) 1.3 k/uL (1.0-4.8); Lymphocytes % (A) 21 %; MCH 30.2 pg (25.0-35.0); MCHC 31.4 g/dL (31.0-37.0); MCV 96.4 fL (80.0-100.0); Mean Platelet Volume 9.9; Monocytes # (A) 0.3 k/uL (0-1.0); Monocytes % (A) 5 %; Neutrophils # (A) 4.6 k/uL (1.3-7.7); Neutrophils % (A) 71 %; Platelet Count 159 k/uL (150-450); RBC 4.07 m/uL (3.80-5.40); RDW 14.5 % (11.5-15.5); WBC 6.5 k/uL (3.8-10.6)
[2020-01-18 04:55] LABS: ALT 28 U/L (4-34); AST 17 U/L (14-36); African American GFR (CKD) >90 (>60 ml/min/1.73 sqM); Albumin 2.5 g/dL (3.5-5.0); Alkaline Phosphatase 69 U/L (38-126); Anion Gap 0 mmol/L; Blood Urea Nitrogen 29 mg/dL (7-17); C Reactive Protein 11.8 mg/L (<10.0); Calcium 9.9 mg/dL (8.4-10.2); Carbon Dioxide 37 mmol/L (22-30); Chloride 103 mmol/L (98-107); Glucose 114 mg/dL (74-99); LDH 458 U/L (313-618); Non-African American GFR(CKD) >90 (>60 ml/min/1.73 sqM); Potassium 3.3 mmol/L (3.5-5.1); Sodium 140 mmol/L (137-145); Total Bilirubin 0.4 mg/dL (0.2-1.3); Total Protein 5.2 g/dL (6.3-8.2)
[2020-01-18] MEDS: POTASSIUM BICARBONATE/CIT AC 20 MEQ TABLET.EFF NG-TUBE SCH ×2 (05:32→06:16)
[2020-01-18 06:16] LABS: ABG HCO3 39 mmol/L (21-25); ABG Oxygen Saturation 89.4 % (94-97); ABG PCO2 59 mmHg (35-45); ABG PH 7.42 (7.35-7.45); ABG TCO2 40 mmol/L (19-24); Allen Test Performed? Yes
[2020-01-18 06:22] LABS: ABG PO2 59 mmHg (83-108)
--- NOTE | 2020-01-18 07:18 | XR ---
EXAMINATION TYPE: XR chest 1V portable DATE OF EXAM: 01/18/2020 COMPARISON: 01/17/2020 INDICATION: Tube placement TECHNIQUE: Single frontal view of the chest is obtained. FINDINGS: The heart size is normal. The pulmonary vasculature is normal. Small bilateral pleural effusions are present. Some mild infiltrate is at the right base. Endotracheal tube tip is above the khadar. PICC line tip appears to be within the right atrium. EKG l bryson overlie the chest. IMPRESSION: 1. Small bilateral pleural effusions with the right lower lobe infiltrate. Continued follow-up is rec ommended. 2. Lines and catheters discussed above
[2020-01-18 07:58] LABS: Glucose,Whole Blood 95 mg/dL (75-99)
[2020-01-18] MEDS: PIPERACILLIN-TAZOBACTAM 3.375 GM in SODIUM CHLORIDE 0.9% 100 ML IVPB SCH ×2 (08:05→15:46)
[2020-01-18] MEDS: CHOLECALCIFEROL 1,000 UNIT TAB PEG/G-TUBE SCH (08:29)
[2020-01-18] MEDS: CHLORHEXIDINE GLUCONATE 15 ML CUP MUCOUS MEM SCH ×2 (08:29→20:11)
[2020-01-18] MEDS: methylPREDNISolone SOD SUCCI 40 MG/ML 1 ML VIAL IV SCH (08:29)
[2020-01-18] MEDS: PANTOPRAZOLE 40 MG/10 ML VIAL IV SCH (08:29)
[2020-01-18] MEDS: amLODIPine 10 MG TAB PO SCH (08:29)
[2020-01-18] MEDS: LISINOPRIL 2.5 MG TAB PEG/G-TUBE SCH (08:29)
[2020-01-18] MEDS: ZINC SULFATE 220 MG CAP PO SCH (08:29)
[2020-01-18] MEDS: ENOXAPARIN 40 MG/0.4 ML SYRINGE SQ SCH ×2 (08:30→20:11)
--- NOTE | 2020-01-18 08:38 | P.PN ---
Subjective Progress Note Date: 01/18/20 Principal diagnosis: Acute hypoxic respiratory failure on ventilator COVID 19 pneumonia Aspiration pneumonia likely mixed bacterial and/or or gram-negative related Chronic right-sided weakness dysphagia and aphasia status post PEG tube COPD Insulin-dependent diabetes mellitus uncontrolled Hypertension hypertensive cardiovascular disease Chronic atrial fibrillation on anticoagulation off of his Xeralto, has been initiated on Lovenox twice a day 01/18/2020, patient seen and evaluated, remains on ventilator stable oxygenation is slightly low patient however remains on stable vent settings FiO2 50% tidal volume of 458 of PEEP, assist control mode breathing about 20-24, oxygen saturation is 92%, patient remains on propofol 25 mics gently sedated, hemodynamic status stable heart and blood pressure is stable off of vasopressors, patient is tolerating well. She is slightly low this morning given extra Lasix 40 mg IV now we'll keep the patient on negative balance, peak airway pressure 30 tolerating vent adjustment well him to lower down the FiO2 to 40% and start his spontaneous breathing trial of CPAP of 5 and pressure support of 10 as tolerated an hour to 45 minutes during which will DC the propofol, labs reviewed, patient is growing gram-negative rods in the sputum, she is adequately covered with Zosyn, chest x-ray reviewed stable lines and tubes, interstitial edema bilaterally small pleural effusion right lower lobe stable infiltrate, critical care time spent 35 minutes 01/17/2020, patient seen eval reexamined during the rounds labs reviewed medications reviewed radiographic studies reviewed as well, patient is still on propofol 25 mics she gets on comfortable if lowers it down we'll keep it for now, ventilator setting is stable, pO2 has improved can go down oxygen to 50 and subsequently to 40%, will keep PEEP 8, peak airway pressure on around 30, suggestive of fairly good compliance, we'll continue to diurese patient after 40 mg of extra Lasix yesterday without 1.5 L of urine repeat that again, to feed being tolerated very well no significant diarrhea has been noted respiratory secretions are minimal, critical care time 35 minutes 01/16/2020, patient seen eval examined during the rounds labs reviewed medications reviewed care plan discussed with the primary service, patient FiO2 is slightly up to percent otherwise PEEP remains 8, tidal volume is 500 with a rate of 16 ventilation appears to be fairly adequate oxygen however remains low review of the data revealed that patient is slightly even and positive in last 48 hours will benefit from some diuresis and given extra Lasix today continue to feed, continue sedation currently on propofol 25 mics, x-ray is not done today, arterial blood gas reviewed labs reviewed. Current care time spent 35 minutes 01/15/2020, patient seen eval examined during the rounds labs reviewed medic ations reviewed care plan discussed with the staff at length, patient remains on full ventilator support with suctioning and movement she desaturates however similar episodethis morning at the time of chest x-ray when she was repositioned suction and transient desaturation happens arterial blood gas was done at the same time however after that on 25 mics of propofol she has been stable saturation have been 98-99% plan is to come down the oxygen to 40% will keep monitor PPEP 10 and if oxygen remains stable on 40% will go down to 8 by and of the day, hemodynamic status stable blood pressure is stable and did not require IV hydralazine, heart rate is improve into high 50s and low 60s, patient is off of clonidine and Lopressor now remains off of vasopressors, tolerating the feed well, urine output is good arterial blood gases reviewed adequate ventilation chest x-ray reviewed overall essentially stable with small bilateral pleural effusion, overall plan is to come down to oxygen of 40% and PEEP of 5 and next 24-48 hours then will initiate spontaneous breathing trials keep ins and outs ev en are negative side continue current dose of Solu-Medrol and continue antibiotics critical care time 35 minutes 01/14/2020, patient seen eval reexamined during the rounds labs reviewed medications reviewed, chest x-ray reviewed as well, patient remains sedated with propofol drip 25 mics, she is bradycardic heart rate is 40-45 with slightly elevated blood pressure 160-170 breathing with vent rate was initially 20 have been reduced to 16, tidal volume is 450 keep is 15 has been lowered down to 10 saturation is 95-96% chest x-ray reviewed right lower lobe infiltrate and small effusions seen overall lung parenchyma and infiltrate appears stable and continued to improve, patient is tolerating every feed very well labs reviewed CBC within normal limits chemistry revealed ABG combination of metabolic and respiratory alkalosis ventilator has been adjusted Lasix have been lowered down to once a day some contribution from his steroids presents which will be reduced to 40 daily, patient will be observed how she does with lower PEEP, we will start hydralazine IV for blood pressure control, continue to hold Lopressor and also hold clonidine we will get cardiovascular services opinion consultation, patient has been tolerating tube feed very well respiratory secretions are minimal adequate urine output has been present 01/13/2020, patient seen eval reexamined during the rounds labs reviewed medications reviewed radiographic studies reviewed as well patient FiO2 has been brought down to 60% she is on 15 of PEEP, her oxygen saturation 97% she is off of vasopressors, she is on 30 mics of propofol somewhat bradycardic will decrease of propofol to 20 mics, we'll continue to bring down the oxygen to 40% as tolerated in during next 24 hours, then will come on down and PEEP. Respiratory secretions are minimal to feed is tolerating well mental status not much change, developed bradycardia her beta blockers are being held, her chest x-ray showing small pleural effusion bilaterally and basal atelectasis and consolidation, tubes are stable, she remains on Solu-Medrol 40 every 12 hourly and Lovenox also 40 q 12, it appears that Solu-Medrol has been helping in improving and able to come down on oxygen, peak airway pressure 30, urine output has been adequate patient has some component of respiratory and metabolic alkalosis, we will lower down the Lasix to 20 mg daily also will decrease the tidal volume to 450, care time spent 35 minuteto 01/12/2020, patient seen and evaluated today care plan discussed with the nurse at length radiographic studies and lab studies reviewed, patient remains on assist control mode rate of 20 breathing about 24 26th of patient remains at PEEP of 10 FiO2 of 80% oxygen saturation are 90-94% within increase the PEEP to 15 as blood pressure is stable and titrated oxygen down to 70-60% next 24 hours chest x-ray reviewed continued to show same pattern but overall condition appears to improve to feed as tolerated very well, CBC is normal arterial blood gases history of hypercapnic hypoxic respiratory failure, bicarb is slightly going up the patient seems to be tolerating steroid well however sugars are higher side remains on insulin 01/11/2020, patient seen eval examined during the rounds labs reviewed medications reviewed radiographic studies reviewed as well patient remains sedated with 40 mics of propofol, she'll decrease it to 30 mics off of levo fed drip, patient did start some levo fed last night but now off, noted that FiO2 has been escalated to 100% and PEEP is down to 5, we'll increase PEEP back to 10 and titrated oxygen down as tolerated to bring it down to goal of 70% in next 24 hours slowly will decrease his sedation as well, 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, left-sided slight worsening has been noted with small left- sided pleural effusion likely fluid overload some of the fluid is present on the right side as well patient medications have been reviewed, patient is on Norvasc 10 mg along with Catapres and Ogestrel, patient has been started on IV steroids given hypoxia And a Difficult Reports from [place] That Steroids Have Been Helpful in Improving Oxygenation but at the Cost of Increasing Shedding Time However, Eisenmenger's Slightly Positive Today, Patient Has Received Lasix, ABG Reviewed pH Is 7.46 PCO2 Is 51 PO2 Is 58 That Is on PEEP of 5 and 100% Oxygen, Her LDH Is up to 926 Ferritin C-Reactive Protein and IL6 Levels Are Pending 01/10/2020, patient seen and evaluated examined during the rounds labs reviewed medications reviewed care plan discussed with RN, patient FiO2 has been down to 60% and peak airway pressures are stable, patient remains on assist control mode rate of 20 breathing about 25-28 oxygen saturation 93% she is 10, spontaneous tidal volume on about 400 500 range patient has been getting his spontaneous breathing trial and she is been sedated with propofol drip very small dose of levofed is still going to come patient is on broad-spectrum antibiotics to feed is going on patient is on half normal saline as well chest x-ray shows diffuse infiltrate stable lines 01/08/2020, patient seen and evaluated examined in ICU patient remains on current ventilator with full ventilatory response be clear pressure slightly better than yesterday ranging from 30-32, patient is down to 70% now PEEP of 10 assist control is 20 breathing about 25-26 tidal volume is 400 this morning ABG reviewed ventilation is adequate slight hypoxia was noted but however sats at that time when the gas were done were 91-92% since that time patient has received 20 of Lasix and put out about 550 mL of urine and saturation is improved to 96%, patient is afebrile, patient would need a PICC line tomorrow, remains on propofol dose has been escalated today, tolerating to feed well, sugars are in low 200 range, LDH is 817 C-reactive protein is 25.2 on the they are showing downward trend her plan discussed with the staff at length will increase her Lasix to 20 mg daily will keep patient on 70% and PEEP of 10 and today attempt to titrate oxygen down again tomorrow chest x-ray showed some improved aviation compared to prior study stable ET tube, and seems to tolerating Lasix well any significant compromise in hemodynamic status critical care time spent 35 minutes 01/07/2020, patient does live increase respiratory distress earlier this morning oxygen remains very poor saturation dropped down into 70s to 80s percent, pO2 was only 46 patient was intubated and placed in ICU where patient was seen eval reexamined, patient remains on levo fed drip on 5 mics, her hemodynamic is sligh tly better systolic blood pressure ranging from 100 210, patient is on propofol 20, vent setting include assist control of 20 tidal volume of 400, PEEP of 10, FiO2 have been lowered down to 90%, ABG and laboratory data data reviewed chest x-ray reviewed mild bilateral interstitial infiltrate consistent with viral pneumonia, patient is being started on Lovenox twice a day continued on tube feed will increase gentle hydration, blood glucose is running slightly high will increase the Levemir, critical care time spent 45 minutes 01/06/2020, patient seen and evaluated examined remains on nonrebreather mask still have problems associated with shortness of breath, care plan discussed with RN will continue current plan of care patient can be started on as needed breathing treatments will continue to gently diurese 01/05/2020, patient seen and evaluated examined remains on nonrebreather mask, n onverbal and noncommunicative essentially no significant change in neurological condition, she remained afebrile with stable hemodynamics her oxygen saturations improved to 96% on repeat nonrebreather mask 01/04/2020, patient laying on the bed on 100% nonrebreather mask and breathing is slightly short of breath, patient is on bronchodilator along with antibiotics, has been on Lasix as well, patient remains on Zosyn, labs reviewed white cell count is normal, labs reviewed, glucose is 342, BUN/creatinine is 25 and 0.7, stool for C. difficile is negative 01/02/2020, patient seen eval examined during the rounds patient has a rapid response this morning with the shortness of breath she however responded well with Lasix, Sands's catheter has been placed, shortness of breath have improved though, on 4 L saturation is 92% low-grade temperature of 99 is present, her chest x-ray assistive of the left lower lobe pneumonia and right perihilar infiltrate prominent lung markings likely fluid overload, Objective - Vital Signs Vital signs: Vital Signs Temp 98.5 F 01/18/20 04:00 Pulse 56 L 01/18/20 07:00 Resp 16 01/18/20 07:00 BP 110/88 01/18/20 07:00 Pulse Ox 96 01/18/20 07:00 Intake & Output 01/17/20 01/18/20 01/18/20 18:59 06:59 18:59 Intake Total 920.586 756 48 Output Total 1675 723 40 Balance -754.414 33 8 Weight 84.4 kg 83.5 kg Intake: IV 250 210 10 0.9% NS 50 110 10 Piperacillin-Tazobactam 3 200 100 .375 gm In Sodium Chloride 0.9% 100 ml @ 25 mls/hr IVPB Q8HR [facility] Rx# :[id number] Intake, IV Titration 76.586 Amount Propofol 1,000 mg In 76.586 Empty Bag 1 bag @ Titrate IV .Q0M [facility] Rx#: [id number] Tube Feeding [id number] 38 Other 150 90 Output: Urine 1675 723 40 Other: Voiding Method Indwelling Catheter Indwelling Catheter - Exam - Neck Neck: no lymphadenopathy, no stridor - Respiratory Scattered rhonchi throughout, full ventilator support - Cardiovascular Regular rhythm and rate. S1 and S2 present, negative for S3, gallop or murmur. Trace edema to her bilateral lower extremities. - Gastrointestinal Abdomen soft and nondistended. - Integumentary Skin is warm and dry. No clubbing or cyanosis is present. Integumentary: no rash - Neurologic Sedated with propofol drip - Labs CBC & Chem 7: 01/18/20 04:14 01/18/20 04:14 Labs: Abnormal Lab Results - Last 24 Hours (Table) 01/17/20 01/17/20 01/17/20 Range/Units 04:23 11:57 16:54 ABG pCO2 (35-45) mmHg ABG pO2 (83-108) mmHg ABG HCO3 (21-25) mmol/L ABG Total CO2 (19-24) mmol/L ABG O2 Saturation (94-97) % Potassium (3.5-5.1) mmol/L Carbon Dioxide (22-30) mmol/L BUN (7-17) mg/dL Creatinine (0.52-1.04) mg/dL Glucose (74-99) mg/dL POC Glucose (mg/dL) 169 H 236 H (75-99) mg/dL Ferritin 391.6 H (10.0-291.0) ng/mL C-Reactive Protein (<10.0) mg/L Total Protein (6.3-8.2) g/dL Albumin (3.5-5.0) g/dL 01/17/20 01/17/20 01/18/20 Range/Units 20:07 23:49 04:14 ABG pCO2 (35-45) mmHg ABG pO2 (83-108) mmHg ABG HCO3 (21-25) mmol/L ABG Total CO2 (19-24) mmol/L ABG O2 Saturation (94-97) % Potassium 3.3 L (3.5-5.1) mmol/L Carbon Dioxide 37 H (22-30) mmol/L BUN 29 H (7-17) mg/dL Creatinine 0.49 L (0.52-1.04) mg/dL Glucose 114 H (74-99) mg/dL POC Glucose (mg/dL) 232 H 191 H (75-99) mg/dL Ferritin (10.0-291.0) ng/mL C-Reactive Protein 11.8 H (<10.0) mg/L Total Protein 5.2 L (6.3-8.2) g/dL Albumin 2.5 L (3.5-5.0) g/dL 01/18/20 Range/Units 06:10 ABG pCO2 59 H (35-45) mmHg ABG pO2 59 L* (83-108) mmHg ABG HCO3 39 H (21-25) mmol/L ABG Total CO2 40 H (19-24) mmol/L ABG O2 Saturation 89.4 L (94-97) % Potassium (3.5-5.1) mmol/L Carbon Dioxide (22-30) mmol/L BUN (7-17) mg/dL Creatinine (0.52-1.04) mg/dL Glucose (74-99) mg/dL POC Glucose (mg/dL) (75-99) mg/dL Ferritin (10.0-291.0) ng/mL C-Reactive Protein (<10.0) mg/L Total Protein (6.3-8.2) g/dL Albumin (3.5-5.0) g/dL Microbiology - Last 24 Hours (Table) 01/15/20 23:35 Gram Stain - Preliminary Sputum Sputum Culture - Preliminary Gram Neg Bacilli Assessment and Plan Assessment: Sinus bradycardia with hypertension, monitor off of Lopressor and clonidine, continue hydralazine IV as needed consult cardiovascular disease and associated patient Norvasc dose has been escalated patient is manifesting adequate hemodynamics heart rate is in 60s and blood pressure is adequate Acute hypoxic respiratory failure on ventilator COVID 19 pneumonia with some improvement in oxygenation Ventilator adjustment now patient is on 50 % oxygen but will be titrated oxygen down as tolerated, her peak airway pressures are stable high 20s , will keep peep of 8 it in next 24 hours and then start coming down on oxygen to 40% as tolerated over next 24 hours Continue I's and Os negative side monitor urine output, increase Lasix to 40 mg IV every 12 hours Patient is getting trial of steroids seems to be tolerating well thus hyperglycemia is some improvement in chest x-ray and oxygenation, there is some anecdotal reports coming from [place] it helps oxygenation however with the cost of prolonged shedding of viral particles we'll continue it to once daily, after increasing the Lantus to 40 Sugars are better under control Aspiration pneumonia likely mixed bacterial and/or or gram-negative as the sputum is growing related, continue Zosyn Bilateral small pleural effusion multifactorial process Chronic right-sided weakness dysphagia and aphasia status post PEG tube COPD Insulin-dependent diabetes mellitus uncontrolled Hypertension hypertensive cardiovascular disease, will decrease Norvasc to 5 mg Chronic atrial fibrillation on anticoagulation Lovenox Critical care time 35 minutes Plan: Titrated oxygen down as as tolerated with slow lowering of PEEP, will be lowered subsequently as noted above Anticoagulation. Lovenox twice a day Continue Norvasc other hemodynamic parameters as noted above Lowering of IV steroids for adjustment of insulin as needed Observe off of levo fed Gentle diuresis will keep her negative for another 24 hours Continue tube feed Ventilator adjustment Continue to check inflammatory labs for covid19 as needed Monitor sodium levels closely Continue respiratory and contact isolation Time with Patient: Greater than 30
[2020-01-18] MEDS: FUROSEMIDE 10 MG/ML 4 ML VIAL IV SCH ×2 (08:39→20:11)
[2020-01-18] MEDS: ALBUTEROL HFA INHALER INHALATION SCH ×4 (09:29→19:18)
[2020-01-18] MEDS: NOREPINEPHRINE 4 MG in SODIUM CHLORIDE 0.9% 250 ML IV SCH (10:39)
[2020-01-18 11:19] LABS: Ferritin 338.1 ng/mL (10.0-291.0)
[2020-01-18 11:42] LABS: Glucose,Whole Blood 160 mg/dL (75-99)
[2020-01-18] MEDS: PROPOFOL 1,000 MG in EMPTY BAG 1 BAG IV SCH ×2 (13:00→17:43)
--- NOTE | 2020-01-18 13:30 | P.PN ---
<Mel Israel - Last Filed: 01/16/20 12:00> Subjective This is Mel Israel PA-C dictating a progress note on this patient The patient was seen by Dr. Arellano This dictation is based on chart review and Dr. Arellano's observation of the patient, patient is COVID positive HPI/interval history Patient is an 79-year-old female who was admitted with hypoxic respiratory failure requiring mechanical ventilation and coronavirus positive. Cardiology was consulted for bradycardia. Metoprolol was stopped and bradycardia has improved. Heart rates are in the 60s. REVIEW OF LABS, ECG Pulse in the 60s, respirations 16, blood pressure 100/63, oxygen saturation 93% on mechanical ventilation WBC 7.5, hemoglobin 13.0, platelets 179, potassium 4.5, BUN 26, creatinine 0.4 IMPRESSION / ASSESSMENT: Acute hypoxic respiratory failure requiring mechanical ventilation Covid 19 pneumonia COPD Hypertension Diabetes Bradycardia, improved after stopping metoprolol, heart rates currently in the 60s PLAN: From a cardiology standpoint, we will sign off at this time and follow the patient on an as-needed basis Management of multiple medical problems by primary care team and multiple consultants Objective - Vital Signs Vital signs: Vital Signs Temp 98 F 01/16/20 08:00 Pulse 61 01/16/20 11:00 Resp 16 01/16/20 11:00 BP 100/63 01/16/20 11:00 Pulse Ox 93 L 01/16/20 11:00 Intake & Output 01/15/20 01/16/20 01/16/20 18:59 06:59 18:59 Intake Total 740.011 815.517 355 Output Total 1300 645 825 Balance -559.989 170.517 -470 Weight 82.6 kg 82.6 kg Intake: IV 120 130 50 NS 120 130 50 Intake, IV Titration 145.011 165.517 100 Amount Piperacillin-Tazobactam 3 100 .375 gm In Sodium Chloride 0.9% 100 ml @ 25 mls/hr IVPB Q8HR [facility] Rx# :[id number] Propofol 1,000 mg In 145.011 165.517 Empty Bag 1 bag @ Titrate IV .Q0M [facility] Rx#: [id number] Tube Feeding 385 [id number] 175 Other 90 30 30 Output: Urine 1300 645 825 Other: Voiding Method Indwelling Catheter Indwelling Catheter Indwelling Catheter # Voids 1 1 - Labs CBC & Chem 7: 01/16/20 05:31 01/16/20 04:10 Labs: Abnormal Lab Results - Last 24 Hours (Table) 01/14/20 01/15/20 01/15/20 Range/Units 05:31 04:44 12:18 ABG pH (7.35-7.45) ABG pCO2 (35-45) mmHg ABG pO2 (83-108) mmHg ABG HCO3 (21-25) mmol/L ABG Total CO2 (19-24) mmol/L ABG O2 Saturation (94-97) % Carbon Dioxide (22-30) mmol/L BUN (7-17) mg/dL Creatinine (0.52-1.04) mg/dL Glucose (74-99) mg/dL POC Glucose (mg/dL) 168 H (75-99) mg/dL Ferritin 433.2 H 520.7 H (10.0-291.0) ng/mL ALT (4-34) U/L Total Protein (6.3-8.2) g/dL Albumin (3.5-5.0) g/dL 01/15/20 01/15/20 01/16/20 Range/Units 15:41 20:04 00:06 ABG pH (7.35-7.45) ABG pCO2 (35-45) mmHg ABG pO2 (83-108) mmHg ABG HCO3 (21-25) mmol/L ABG Total CO2 (19-24) mmol/L ABG O2 Saturation (94-97) % Carbon Dioxide (22-30) mmol/L BUN (7-17) mg/dL Creatinine (0.52-1.04) mg/dL Glucose (74-99) mg/dL POC Glucose (mg/dL) 232 H 207 H 177 H (75-99) mg/dL Ferritin (10.0-291.0) ng/mL ALT (4-34) U/L Total Protein (6.3-8.2) g/dL Albumin (3.5-5.0) g/dL 01/16/20 01/16/20 01/16/20 Range/Units 03:07 04:10 04:10 ABG pH (7.35-7.45) ABG pCO2 (35-45) mmHg ABG pO2 (83-108) mmHg ABG HCO3 (21-25) mmol/L ABG Total CO2 (19-24) mmol/L ABG O2 Saturation (94-97) % Carbon Dioxide 31 H (22-30) mmol/L BUN 26 H (7-17) mg/dL Creatinine 0.40 L (0.52-1.04) mg/dL Glucose 168 H (74-99) mg/dL POC Glucose (mg/dL) 173 H 157 H (75-99) mg/dL Ferritin 617.0 H (10.0-291.0) ng/mL ALT 47 H (4-34) U/L Total Protein 4.8 L (6.3-8.2) g/dL Albumin 2.2 L (3.5-5.0) g/dL 01/16/20 01/16/20 Range/Units 05:45 08:22 ABG pH 7.46 H (7.35-7.45) ABG pCO2 51 H (35-45) mmHg ABG pO2 54 L* (83-108) mmHg ABG HCO3 36 H (21-25) mmol/L ABG Total CO2 38 H (19-24) mmol/L ABG O2 Saturation 88.5 L (94-97) % Carbon Dioxide (22-30) mmol/L BUN (7-17) mg/dL Creatinine (0.52-1.04) mg/dL Glucose (74-99) mg/dL POC Glucose (mg/dL) 135 H (75-99) mg/dL Ferritin (10.0-291.0) ng/mL ALT (4-34) U/L Total Protein (6.3-8.2) g/dL Albumin (3.5-5.0) g/dL Microbiology - Last 24 Hours (Table) 01/15/20 23:35 Sputum Culture - Preliminary Sputum <Gabino Arellano - Last Filed: 01/18/20 13:30> Objective - Vital Signs Vital signs: Vital Signs Temp 98.6 F 01/18/20 12:00 Pulse 73 01/18/20 13:00 Resp 16 01/18/20 13:00 BP 126/73 01/18/20 13:00 Pulse Ox 92 L 01/18/20 13:00 Intake & Output 01/17/20 01/18/20 01/18/20 18:59 06:59 18:59 Intake Total 920.586 756 546 Output Total 8903 847 0263 Balance -754.414 33 -1019 Weight 84.4 kg 83.5 kg 83.5 kg Intake: IV 250 210 170 0.9% NS 50 110 70 Piperacillin-Tazobactam 3 200 100 100 .375 gm In Sodium Chloride 0.9% 100 ml @ 25 mls/hr IVPB Q8HR [facility] Rx# :[id number] Intake, IV Titration 76.586 Amount Propofol 1,000 mg In 76.586 Empty Bag 1 bag @ Titrate IV .Q0M [facility] Rx#: [id number] Tube Feeding 444 [id number] 266 Other 150 90 110 Output: Urine 6427 370 6758 Other: Voiding Method Indwelling Catheter Indwelling Catheter Indwelling Catheter - Labs CBC & Chem 7: 01/18/20 04:14 01/18/20 04:14 Labs: Abnormal Lab Results - Last 24 Hours (Table) 01/17/20 01/17/20 01/17/20 Range/Units 16:54 20:07 23:49 ABG pCO2 (35-45) mmHg ABG pO2 (83-108) mmHg ABG HCO3 (21-25) mmol/L ABG Total CO2 (19-24) mmol/L ABG O2 Saturation (94-97) % Potassium (3.5-5.1) mmol/L Carbon Dioxide (22-30) mmol/L BUN (7-17) mg/dL Creatinine (0.52-1.04) mg/dL Glucose (74-99) mg/dL POC Glucose (mg/dL) 236 H 232 H 191 H (75-99) mg/dL Ferritin (10.0-291.0) ng/mL C-Reactive Protein (<10.0) mg/L Total Protein (6.3-8.2) g/dL Albumin (3.5-5.0) g/dL 01/18/20 01/18/20 01/18/20 Range/Units 04:14 06:10 11:41 ABG pCO2 59 H (35-45) mmHg ABG pO2 59 L* (83-108) mmHg ABG HCO3 39 H (21-25) mmol/L ABG Total CO2 40 H (19-24) mmol/L ABG O2 Saturation 89.4 L (94-97) % Potassium 3.3 L (3.5-5.1) mmol/L Carbon Dioxide 37 H (22-30) mmol/L BUN 29 H (7-17) mg/dL Creatinine 0.49 L (0.52-1.04) mg/dL Glucose 114 H (74-99) mg/dL POC Glucose (mg/dL) 160 H (75-99) mg/dL Ferritin 338.1 H (10.0-291.0) ng/mL C-Reactive Protein 11.8 H (<10.0) mg/L Total Protein 5.2 L (6.3-8.2) g/dL Albumin 2.5 L (3.5-5.0) g/dL Microbiology - Last 24 Hours (Table) 01/15/20 23:35 Gram Stain - Final Sputum Sputum Culture - Final Klebsiella pneumoniae Corynebacterium striatum
--- NOTE | 2020-01-18 14:53 | P.PN ---
Subjective Progress Note Date: 01/18/20 Soledad Enriquez, is an 79-year-old female who resides at a intermediate at this time will was noticed to have worsening mental status and persistent cough, patient started having elevated temperature up to 101 at that point she was sent to [facility] emergency room she had testing for influenza A and B which were negative she also had an instant test for Covid 19 which was positive she was admitted to telemetry floor she was started on IV Zithromax pulmonary and infectious disease consultation were requested. Patient also had evidence of dehydration with hypernatremia elevated sodium level at 151. Patient has a known history of multiple medical problems including history of stroke with right sided paralysis, history of aspiration patient has a PEG tube for feeding, history of insulin-dependent diabetes mellitus, history of hypertension, history of hyperlipidemia, and history of paroxysmal atrial fibrillation. On presentation patient had a temperature of 101 pulse of 82 respiration 18 blood pressure 119/63 and pulse ox of 91% on 4 L nasal cannula. White blood count was 4.8 chest x-ray revealed evidence of left basilar opacity. On 12/30/2019 patient was seen and examined on the medical floor she is somnolent responsive in no apparent distress there is low-grade fever temperature is 100.8 there is no chills no headache or dizziness no chest pain no shortness of breath no cough no nausea or vomiting no abdominal pain no diarrhea and no burning was urination. Nurse noticed some vaginal bleeding, hemoglobin is stable at 15. Pulse ox is 96% on 4 L nasal cannula , On 12/31/2019 patient was seen and examined on the medical floor she is somnolent responsive in no apparent distress, her fever is subsiding temperatures this morning 99 pulse ox is 92% on 4 L nasal cannula, patient is denying any complaints at this time however, she does not seem to be listening much to the questions, and she goes back to sleep fast. White blood count today is normal at 4.1 hemoglobin is 15.2 potassium is elevated at 5.8 On 01/01/2020 patient was seen and examined on the medical floor she is more alert and responsive today there is no fever or chills no headache or dizziness no chest pain no shortness of breath no cough no nausea or vomiting no abdominal pain no diarrhea and no urinary symptoms, she is receiving feeding through PEG tube at night, glucose level is elevated again, will increase Lantus dose to 25 units at bedtime, and continue was inserted into sliding scale. Patient is receiving oxygen via nasal cannula at 4 L her pulse ox is 92% patient does not s eem to be in any distress her temperature heart rates respiration rate and blood pressure are in normal range white blood count is 3.8 potassium 4.8 On 01/02/2020 patient was seen and examined on the medical floor she is alert and responsive in no apparent distress. This morning patient had an episode of shortness of breath with decreased O2 sat duration A team was called patient received IV Lasix Sands catheter was inserted chest x-ray was done. Currently patient is doing better pulse ox is 92% on 4 L nasal cannula. On 01/03/2020 patient was seen and examined on the medical floor she is alert responsive in no apparent distress, her pulse ox is 92% on 6 L nasal cannula she is afebrile blood pressure is 123/87 chest x-ray done yesterday reveals left lower lobe infiltrate and right perihilar infiltrates. Without significant improvement from prior x-rays. On 01/04/2020 patient was seen and examined on the medical floor she is more alert and responsive today he denies any pain or discomfort, her pulse ox was lower today and she was switched to a nonrebreather mask On 01/05/2020 patient was seen and examined on the medical floor, she is alert and responsive at this time, she is tolerating tube feeding well, she denied any pain or discomfort. On 01/06/2020 patient was seen and examined on the medical floor, she is alert responsive in no apparent distress she is answering a few questions with yes or no or nodding her head she is tolerating tube feeding well she is denying any pain or discomfort at this time, her temperature is 98.1 blood pressure 135/75 pulse ox 90% on nonrebreather mask. On 01/07/2020 Patient was seen and examined in the ICU. Around 7:00 am this morning patient was on the floor she was having worsening shortness of breath and using accessory muscles she was on nonrebreather mask and her O2 sat duration was 88% Dr. Caba [employer] consultant was contacted patient was transferred to ICU she was intubated sedated and started on mechanical ventilation, she was also started on levophed for blood pressure support. On 01/08/2020 Patient was seen and examined in the ICU. She is intubated sedated maintained on mechanical ventilation, she is still on a small dose of Levophed. She is receiving tube feeding via PEG tube. Her ABG reveals a pH of 7.4 to pCO2 45 by mouth to 59 FiO2 is 70% On 01/09/2020 patient was seen and examined in the ICU she remains intubated sedated maintained on mechanical ventilation, she remains on a small dose of levophed for pressure support. ABG reveals a pH of 7.4 pCO2 47 PO2 77 with FiO2 of 70% her temperature is 90.8 pulse 69 respiration 27 blood pressure 112/70 On 01/10/2020 patient was seen and examined in the ICU she is intubated sedated maintained on mechanical ventilation, temperature is 97.9 pulse 62 respiration 20 blood pressure 121/73 ABG reveals pH of 7.39 pCO2 52 by mouth to 59 FiO2 is 60% no significant change in condition since yesterday patient is receiving tube feeding. She was not seen by critical care yesterday due to personal reasons per nurse. At this time will change consult for pulmonary and critical care to Dr. Perez. On 01/11/2020 Patient was seen and examined in the ICU she is intubated, sedated, maintained on mechanical ventilation. there is no fever or chills. ABs reveals PH 7.46 PCO2 51 PO2 58 FIO@ 100 % On 01/12/2020 patient was seen and examined in the ICU she is intubated sedated maintained on mechanical ventilation she is not on any pressure support there is no fever or chills she is receiving tube feeding. On 01/13/2020 patient was seen and examined in the ICU she is intubated sedated maintained on mechanical ventilation, she is maintained on 2 feeding glucose is elevated, dose of Levemir will be increased to 35 units daily, continue with sliding scale. ABG reveals pH 7.5 one pCO2 46 by mouth to 90 FiO2 of 60% On 01/14/2020 patient was seen and examined in the ICU she is intubated sedated maintained on mechanical ventilation she is also maintained on PEG tube feeding she had episodes of bradycardia cardiology were consulted and beta herminio were discontinued and patient was started on Norvasc patient also is having some minimal elevation in her liver enzymes pravastatin was discontinued. Otherwise no significant change in her condition patient remains on mechanical ventilation no weaning trials are scheduled for today. On 01/15/2020 patient was seen and examined in the ICU she is intubated sedated maintained on mechanical ventilation she is receiving PEG tube feeding. Case was discussed with Dr. Kamara [employer] consultant. Patient is stable and is improving she is alert when her sedation is decreased however her O2 saturation drops with sedation holidays. There is no fever or chills. Temperature is 97.7 pulse 60 respirations 17 blood pressure 143/74 ABG reveals a pH of 7.46 pCO2 52 by mouth to 52 FiO2 at this time is 40% On 01/16/2020 patient was seen and examined in the ICU she is intubated sedated maintained on mechanical ventilation, FiO2 and PEEP are being decreased gradually arterial blood gases reveal a pH of 7.46 pCO2 51 CO2 54 FiO2 of 40% patient is febrile temperature is 98.1 blood pressure 130/76 she is not on any pressure support she is receiving PEG tube feeding. On 01/17/2020 patient was seen and examined in the ICU she is intubated sedated maintained on mechanical ventilation, vital exam reveals a temperature of 99.2 pulse 76 respiration 16 blood pressure 117/57 white blood count is 7.4 hemoglobin 13.9 platelets count 116 BUN is 30 creatinine 0.47 Arterial blood gas reveals a pH of 7.48 pCO2 49 by mouth to 90 on FiO2 of 60% On 01/18/2020 patient was seen and examined in the ICU she is intubated sedated maintained on mechanical ventilation, she had one hour sedation holiday this morning, patient was able to respond, she started having some cough and tachypnea and she was started back on sedation. Vital exam reveals a temperature of 98.6 pulse 82 respiration 20 blood pressure 118/61 white blood count is 6.5 hemoglobin 12.3 arterial blood gas revealed pH 7.42 pCO2 59 CO2 59 FiO2 50% Objective - Vital Signs Vital signs: Vital Signs Temp 98.6 F 01/18/20 12:00 Pulse 86 01/18/20 14:00 Resp 16 01/18/20 14:00 BP 120/68 01/18/20 14:00 Pulse Ox 92 L 01/18/20 14:00 Intake & Output 01/17/20 01/18/20 01/18/20 18:59 06:59 18:59 Intake Total 920.586 756 594 Output Total 1236 728 2356 Balance -754.414 33 -1096 Weight 84.4 kg 83.5 kg 83.5 kg Intake: IV 250 210 180 0.9% NS 50 110 80 Piperacillin-Tazobactam 3 200 100 100 .375 gm In Sodium Chloride 0.9% 100 ml @ 25 mls/hr IVPB Q8HR [facility] Rx# :[id number] Intake, IV Titration 76.586 Amount Propofol 1,000 mg In 76.586 Empty Bag 1 bag @ Titrate IV .Q0M [facility] Rx#: [id number] Tube Feeding 444 456 304 Other 150 90 110 Output: Urine 6131 [id number] [id number] Other: Voiding Method Indwelling Catheter Indwelling Catheter Indwelling Catheter - Exam In general patient is intubated sedated maintained on mechanical ventilation HEENT head normocephalic and atraumatic Neck is supple no JVD no goiter no lymphadenopathy Chest exam reveals a few scattered crackles no wheezing Cardiac exam reveals regular heart sounds no gallops no murmurs Abdomen is soft nontender no organomegaly with normal bowel sounds Extremity exam reveals no edema no cyanosis or clubbing - Labs CBC & Chem 7: 01/18/20 04:14 01/18/20 14:05 Labs: Abnormal Lab Results - Last 24 Hours (Table) 01/17/20 01/17/20 01/17/20 Range/Units 16:54 20:07 23:49 ABG pCO2 (35-45) mmHg ABG pO2 (83-108) mmHg ABG HCO3 (21-25) mmol/L ABG Total CO2 (19-24) mmol/L ABG O2 Saturation (94-97) % Potassium (3.5-5.1) mmol/L Carbon Dioxide (22-30) mmol/L BUN (7-17) mg/dL Creatinine (0.52-1.04) mg/dL Glucose (74-99) mg/dL POC Glucose (mg/dL) 236 H 232 H 191 H (75-99) mg/dL Ferritin (10.0-291.0) ng/mL C-Reactive Protein (<10.0) mg/L Total Protein (6.3-8.2) g/dL Albumin (3.5-5.0) g/dL 01/18/20 01/18/20 01/18/20 Range/Units 04:14 06:10 11:41 ABG pCO2 59 H (35-45) mmHg ABG pO2 59 L* (83-108) mmHg ABG HCO3 39 H (21-25) mmol/L ABG Total CO2 40 H (19-24) mmol/L ABG O2 Saturation 89.4 L (94-97) % Potassium 3.3 L (3.5-5.1) mmol/L Carbon Dioxide 37 H (22-30) mmol/L BUN 29 H (7-17) mg/dL Creatinine 0.49 L (0.52-1.04) mg/dL Glucose 114 H (74-99) mg/dL POC Glucose (mg/dL) 160 H (75-99) mg/dL Ferritin 338.1 H (10.0-291.0) ng/mL C-Reactive Protein 11.8 H (<10.0) mg/L Total Protein 5.2 L (6.3-8.2) g/dL Albumin 2.5 L (3.5-5.0) g/dL Microbiology - Last 24 Hours (Table) 01/15/20 23:35 Gram Stain - Final Sputum Sputum Culture - Final Klebsiella pneumoniae Corynebacterium striatum Assessment and Plan Plan: #1 pneumonia likely related to COVID 19 viral pneumonitis, followed by pulmonary and infectious disease, condition has worsened over night patient is currently in ICU maintained on mechanical ventilation #2 severe hypernatremia, on admission corrected #3 mental status changes likely related to hypernatremia and metabolic encephalopathy related to infection #4 acute hypoxic respiratory failure related to pneumonia, requiring oxygen at 4 L nasal cannula at this time #5 underlying history of hypertension #6 underlying history of COPD #7 underlying history of insulin-dependent diabetes mellitus, insulin dose adjusted today Levemir increased to 35 units daily #8 underlying history of stroke with right sided paralysis #9 chronic dysphagia and aspiration requiring PEG tube feeding #10 underlying history of atrial fibrillation maintained on Xarelto #11 vaginal bleeding, at this time will monitor closely, will check daily CBC, and monitor for amount of bleeding. Once her current illness has subsided, will investigate further with pelvic ultrasound and [employer] consult. #12 hyperkalemia, corrected At this time patient is into in the intensive care unit, no change in condition since yesterday She is intubated sedated maintained on mechanical ventilation Consultation for pulmonary and infectious disease requested in the emergency room and are following patient's No significant change in condition over the last few days awaiting possible weaning trials in the next 1-2 days Prognosis is guarded due to multiple underlying comorbid conditions
[2020-01-18 16:10] LABS: Glucose,Whole Blood 249 mg/dL (75-99)
[2020-01-18] MEDS: FERROUS SULFATE ORAL ELIXIR 300 MG/5 ML CUP PEG/G-TUBE SCH (20:11)
[2020-01-18 21:04] LABS: Glucose,Whole Blood 202 mg/dL (75-99)
[2020-01-18] MEDS: INSULIN DETEMIR (LEVEMIR) 100 UNIT/ML SYR SQ SCH (21:06)
--- NOTE | 2020-01-18 22:01 | PN ---
PROGRESS NOTE DATE OF SERVICE: 01/18/2020 REASON FOR FOLLOWUP: Pneumonia. INTERVAL HISTORY: The patient is currently afebrile. The patient is hemodynamically stable. FiO2 is currently at 40%. No significant purulent secretion in the ET has been reported or any diarrhea. PHYSICAL EXAMINATION: Blood pressure 118/73 with a pulse of 70, temperature 98.7. She is 97% on 40% FiO2. General description is an elderly female lying in bed in no distress. RESPIRATORY SYSTEM: Unlabored breathing with decreased breath sounds at the base. No wheeze. HEART: S1, S2. Regular rate and rhythm. ABDOMEN: Soft. No tenderness. LABS: Hemoglobin 12.3, white count 6.5. BUN of 29, creatinine 0.49. Sputum has been finalized with Klebsiella that is a sensitive pathogen. DIAGNOSTIC IMPRESSION AND PLAN: Patient with acute respiratory failure which is multifactorial in this patient who did have a component of pneumonia. Sputum has been finalized with Klebsiella; antibiotic was adjusted to Rocephin 2 grams daily, and we will monitor clinical course closely. Continue with supportive care. MMODL / IJN: [id number] /
[2020-01-19 00:12] LABS: Glucose,Whole Blood 174 mg/dL (75-99)
[2020-01-19] MEDS: INSULIN ASPART (NovoLOG) 100 UNIT/ML VIAL SQ SCH ×7 (00:26→23:49)
[2020-01-19] MEDS: PROPOFOL 1,000 MG in EMPTY BAG 1 BAG IV SCH ×3 (01:36→22:21)
[2020-01-19 04:12] LABS: Glucose,Whole Blood 139 mg/dL (75-99)
[2020-01-19 05:08] LABS: ABG Base Excess 14.6 mmol/L; ABG HCO3 38 mmol/L (21-25); ABG PCO2 52 mmHg (35-45); ABG PH 7.47 (7.35-7.45); ABG TCO2 40 mmol/L (19-24); Allen Test Performed? Yes
[2020-01-19 05:45] LABS: Basophils % (A) 0 %; Eosinophils # (A) 0.2 k/uL (0-0.7); Eosinophils % (A) 3 %; HCT 39.7 % (34.0-46.0); HGB 12.8 gm/dL (11.4-16.0); Hypochromasia Slight; Lymphocytes # (A) 1.6 k/uL (1.0-4.8); Lymphocytes % (A) 24 %; MCH 31.5 pg (25.0-35.0); MCHC 32.2 g/dL (31.0-37.0); MCV 97.8 fL (80.0-100.0); Mean Platelet Volume 10.5; Monocytes # (A) 0.5 k/uL (0-1.0); Monocytes % (A) 7 %; Neutrophils # (A) 4.5 k/uL (1.3-7.7); Neutrophils % (A) 65 %; Platelet Count 178 k/uL (150-450); RBC 4.06 m/uL (3.80-5.40); RDW 14.5 % (11.5-15.5); WBC 6.9 k/uL (3.8-10.6)
[2020-01-19] MEDS: FUROSEMIDE 10 MG/ML 4 ML VIAL IV SCH ×2 (05:58→20:32)
[2020-01-19 06:24] LABS: ALT 26 U/L (4-34); AST 19 U/L (14-36); African American GFR (CKD) >90 (>60 ml/min/1.73 sqM); Albumin 2.7 g/dL (3.5-5.0); Alkaline Phosphatase 71 U/L (38-126); Anion Gap 0 mmol/L; Blood Urea Nitrogen 29 mg/dL (7-17); C Reactive Protein 10.6 mg/L (<10.0); Carbon Dioxide 37 mmol/L (22-30); Chloride 101 mmol/L (98-107); Creatine Kinase <20 U/L (30-135); Glucose 158 mg/dL (74-99); LDH 533 U/L (313-618); Non-African American GFR(CKD) >90 (>60 ml/min/1.73 sqM); Potassium 3.4 mmol/L (3.5-5.1); Sodium 138 mmol/L (137-145); Total Bilirubin 0.4 mg/dL (0.2-1.3); Total Protein 5.5 g/dL (6.3-8.2)
--- NOTE | 2020-01-19 06:25 | XR ---
EXAMINATION TYPE: XR chest 1V portable DATE OF EXAM: 01/19/2020 CLINICAL HISTORY: Difficulty breathing progress study. TECHNIQUE: Single AP portable upright view of the chest is obtained. COMPARISON: Chest x-ray from one day earlier and older studies. FINDINGS: Stable endotracheal tube. Interval removal left-sided PICC line. Background chronic parenc hymal change with persistent bibasilar opacities. Stable mild cardiomegaly with atherosclerotic thora cic aorta. Osseous structures are intact. Overlying EKG leads redemonstrated. IMPRESSION: Chronic parenchymal change and cardiomegaly with small bilateral pleural effusions and as sociated bibasilar acute infiltrate and/or atelectasis. Some worsening in left basilar findings noted from most recent prior x-ray.
[2020-01-19] MEDS: POTASSIUM CHLORIDE ER 20 MEQ TAB.ER PO SCH ×3 (06:50→11:54)
[2020-01-19] MEDS: ALBUTEROL HFA INHALER INHALATION SCH ×4 (07:09→19:04)
[2020-01-19] MEDS: NOREPINEPHRINE 4 MG in SODIUM CHLORIDE 0.9% 250 ML IV SCH ×2 (07:34→23:05)
[2020-01-19 08:20] LABS: Glucose,Whole Blood 147 mg/dL (75-99)
[2020-01-19] MEDS: LISINOPRIL 2.5 MG TAB PEG/G-TUBE SCH (08:33)
[2020-01-19] MEDS: ENOXAPARIN 40 MG/0.4 ML SYRINGE SQ SCH ×2 (08:33→20:29)
[2020-01-19] MEDS: CHLORHEXIDINE GLUCONATE 15 ML CUP MUCOUS MEM SCH ×2 (08:33→20:30)
[2020-01-19] MEDS: methylPREDNISolone SOD SUCCI 40 MG/ML 1 ML VIAL IV SCH (08:33)
[2020-01-19] MEDS: amLODIPine 10 MG TAB PO SCH (08:34)
[2020-01-19] MEDS: ZINC SULFATE 220 MG CAP PO SCH (09:37)
[2020-01-19] MEDS: PANTOPRAZOLE 40 MG/10 ML VIAL IV SCH (09:37)
--- NOTE | 2020-01-19 09:57 | P.PN ---
Subjective Progress Note Date: 01/19/20 Principal diagnosis: Acute hypoxic respiratory failure on ventilator COVID 19 pneumonia Aspiration pneumonia likely mixed bacterial and/or or gram-negative related Chronic right-sided weakness dysphagia and aphasia status post PEG tube COPD Insulin-dependent diabetes mellitus uncontrolled Hypertension hypertensive cardiovascular disease Chronic atrial fibrillation on anticoagulation off of his Xeralto, has been initiated on Lovenox twice a day 01/19/2020, patient seen eval examined during the rounds labs reviewed medications reviewed care plan discussed with the staff at length patient has been on 40% oxygen and PEEP of 8 saturation is 94%, she is off of propofol r emains nonverbal and noncommunicative like baseline due to prior CVA and hemiparesis, cannot do maximal respiratory pressure, also some on the weaning parameters cannot be achieved due to stroke in the past, hemodynamic status stable heart rate is stable blood pressure is stable off of propofol for last 1 hour, labs reviewed white cell count is 6900, arterial blood gas from this morning reviewed after that patient receive Lasix 40 mg IV put out over 350 mL of urine right away, per day she missed 3.41 potassium replacement protocol, chest x-ray from earlier this morning reviewed basal small pleural effusion along with atelectasis seen with interstitial edema overall remains essentially unchanged 01/18/2020, patient seen and evaluated, remains on ventilator stable oxygenation is slightly low patient however remains on stable vent settings FiO2 50% tidal volume of 458 of PEEP, assist control mode breathing about 20-24, oxygen saturation is 92%, patient remains on propofol 25 mics gently sedated, hemodynamic status stable heart and blood pressure is stable off of vasopressors, patient is tolerating well. She is slightly low this morning given extra Lasix 40 mg IV now we'll keep the patient on negative balance, peak airway pressure 30 tolerating vent adjustment well him to lower down the FiO2 to 40% and start his spontaneous breathing trial of CPAP of 5 and pressure support of 10 as tolerated an hour to 45 minutes during which will DC the propofol, labs reviewed, patient is growing gram-negative rods in the sputum, she is adequately covered with Zosyn, chest x-ray reviewed stable lines and tubes, interstitial edema bilaterally small pleural effusion right lower lobe stable infiltrate, critical care time spent 35 minutes 01/17/2020, patient seen eval reexamined during the rounds labs reviewed medications reviewed radiographic studies reviewed as well, patient is still on propofol 25 mics she gets on comfortable if lowers it down we'll keep it for now, ventilator setting is stable, pO2 has improved can go down oxygen to 50 and subsequently to 40%, will keep PEEP 8, peak airway pressure on around 30, suggestive of fairly good compliance, we'll continue to diurese patient after 40 mg of extra Lasix yesterday without 1.5 L of urine repeat that again, to feed being tolerated very well no significant diarrhea has been noted respiratory secretions are minimal, critical care time 35 minutes 01/16/2020, patient seen eval examined during the rounds labs reviewed medica tions reviewed care plan discussed with the primary service, patient FiO2 is slightly up to percent otherwise PEEP remains 8, tidal volume is 500 with a rate of 16 ventilation appears to be fairly adequate oxygen however remains low review of the data revealed that patient is slightly even and positive in last 48 hours will benefit from some diuresis and given extra Lasix today continue to feed, continue sedation currently on propofol 25 mics, x-ray is not done today, arterial blood gas reviewed labs reviewed. Current care time spent 35 minutes 01/15/2020, patient seen eval examined during the rounds labs reviewed medications reviewed care plan discussed with the staff at length, patient r emains on full ventilator support with suctioning and movement she desaturates however similar episodethis morning at the time of chest x-ray when she was repositioned suction and transient desaturation happens arterial blood gas was done at the same time however after that on 25 mics of propofol she has been stable saturation have been 98-99% plan is to come down the oxygen to 40% will keep monitor PPEP 10 and if oxygen remains stable on 40% will go down to 8 by and of the day, hemodynamic status stable blood pressure is stable and did not require IV hydralazine, heart rate is improve into high 50s and low 60s, patient is off of clonidine and Lopressor now remains off of vasopressors, tolerating the feed well, urine output is good arterial blood gases reviewed adequate ventilation chest x-ray reviewed overall essentially stable with small bilateral pleural effusion, overall plan is to come down to oxygen of 40% and PEEP of 5 and next 24-48 hours then will initiate spontaneous breathing trials keep ins and outs even are negative side continue current dose of Solu-Medrol and continue antibiotics critical care time 35 minutes 01/14/2020, patient seen eval reexamined during the rounds labs reviewed medications reviewed, chest x-ray reviewed as well, patient remains sedated with propofol drip 25 mics, she is bradycardic heart rate is 40-45 with slightly elevated blood pressure 160-170 breathing with vent rate was initially 20 have been reduced to 16, tidal volume is 450 keep is 15 has been lowered down to 10 saturation is 95-96% chest x-ray reviewed right lower lobe infiltrate and small effusions seen overall lung parenchyma and infiltrate appears stable and continued to improve, patient is tolerating every feed very well labs reviewed CBC within normal limits chemistry revealed ABG combination of metabolic and respiratory alkalosis ventilator has been adjusted Lasix have been lowered down to once a day some contribution from his steroids presents which will be reduced to 40 daily, patient will be observed how she does with lower PEEP, we will start hydralazine IV for blood pressure control, continue to hold Lopressor and also hold clonidine we will get cardiovascular services opinion consultation, patient has been tolerating tube feed very well respiratory secretions are minimal adequate urine output has been present 01/13/2020, patient seen eval reexamined during the rounds labs reviewed medications reviewed radiographic studies reviewed as well patient FiO2 has been brought down to 60% she is on 15 of PEEP, her oxygen saturation 97% she is off of vasopressors, she is on 30 mics of propofol somewhat bradycardic will decrease of propofol to 20 mics, we'll continue to bring down the oxygen to 40% as tolerated in during next 24 hours, then will come on down and PEEP. Respiratory secretions are minimal to feed is tolerating well mental status not much change, developed bradycardia her beta blockers are being held, her chest x-ray showing small pleural effusion bilaterally and basal atelectasis and consolidation, tubes are stable, she remains on Solu-Medrol 40 every 12 hourly and Lovenox also 40 q 12, it appears that Solu-Medrol has been helping in improving and able to come down on oxygen, peak airway pressure 30, urine output has been adequate patient has some component of respiratory and metabolic alkalosis, we will lower down the Lasix to 20 mg daily also will decrease the tidal volume to 450, care time spent 35 minuteto 01/12/2020, patient seen and evaluated today care plan discussed with the nurse at length radiographic studies and lab studies reviewed, patient remains on assist control mode rate of 20 breathing about 24 of patient remains at PEEP of 10 FiO2 of 80% oxygen saturation are 90-94% within increase the PEEP to 15 as blood pressure is stable and titrated oxygen down to 70-60% next 24 hours chest x-ray reviewed continued to show same pattern but overall condition appears to improve to feed as tolerated very well, CBC is normal arterial blood gases history of hypercapnic hypoxic respiratory failure, bicarb is slightly going up the patient seems to be tolerating steroid well however sugars are higher side remains on insulin 01/11/2020, patient seen eval examined during the rounds labs reviewed medicatio ns reviewed radiographic studies reviewed as well patient remains sedated with 40 mics of propofol, she'll decrease it to 30 mics off of levo fed drip, patient did start some levo fed last night but now off, noted that FiO2 has been escalated to 100% and PEEP is down to 5, we'll increase PEEP back to 10 and titrated oxygen down as tolerated to bring it down to goal of 70% in next 24 hours slowly will decrease his sedation as well, 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, left-sided slight worsening has been noted with small left- sided pleural effusion likely fluid overload some of the fluid is present on the right side as well patient medications have been reviewed, patient is on Norvasc 10 mg along with Catapres and Ogestrel, patient has been started on IV steroids given hypoxia And a Difficult Reports from [place] That Steroids Have Been Helpful in Improving Oxygenation but at the Cost of Increasing Shedding Time However, Eisenmenger's Slightly Positive Today, Patient Has Received Lasix, ABG Reviewed pH Is 7.46 PCO2 Is 51 PO2 Is 58 That Is on PEEP of 5 and 100% Oxygen, Her LDH Is up to 926 Ferritin C-Reactive Protein and IL6 Levels Are Pending 01/10/2020, patient seen and evaluated examined during the rounds labs reviewed medications reviewed care plan discussed with RN, patient FiO2 has been down to 60% and peak airway pressures are stable, patient remains on assist control mode rate of 20 breathing about 25-28 oxygen saturation 93% she is 10, spontaneous tidal volume on about 400 500 range patient has been getting his spontaneous breathing trial and she is been sedated with propofol drip very small dose of levofed is still going to come patient is on broad-spectrum antibiotics to feed is going on patient is on half normal saline as well chest x-ray shows diffuse infiltrate stable lines 01/08/2020, patient seen and evaluated examined in ICU patient remains on current ventilator with full ventilatory response be clear pressure slightly better than yesterday ranging from 30-32, patient is down to 70% now PEEP of 10 assist control is 20 breathing about 25-26 tidal volume is 400 this morning ABG reviewed ventilation is adequate slight hypoxia was noted but however sats at that time when the gas were done were 91-92% since that time patient has receiv ed 20 of Lasix and put out about 550 mL of urine and saturation is improved to 96%, patient is afebrile, patient would need a PICC line tomorrow, remains on propofol dose has been escalated today, tolerating to feed well, sugars are in low 200 range, LDH is 817 C-reactive protein is 25.2 on the they are showing downward trend her plan discussed with the staff at length will increase her Lasix to 20 mg daily will keep patient on 70% and PEEP of 10 and today attempt to titrate oxygen down again tomorrow chest x-ray showed some improved aviation compared to prior study stable ET tube, and seems to tolerating Lasix well any significant compromise in hemodynamic status critical care time spent 35 minutes 01/07/2020, patient does live increase respiratory distress earlier this morning oxygen remains very poor saturation dropped down into 70s to 80s percent, pO2 was only 46 patient was intubated and placed in ICU where patient was seen eval reexamined, patient remains on levo fed drip on 5 mics, her hemodynamic is slightly better systolic blood pressure ranging from 100 210, patient is on propofol 20, vent setting include assist control of 20 tidal volume of 400, PEEP of 10, FiO2 have been lowered down to 90%, ABG and laboratory data data reviewed chest x-ray reviewed mild bilateral interstitial infiltrate consistent with viral pneumonia, patient is being started on Lovenox twice a day continued on tube feed will increase gentle hydration, blood glucose is running slightly high will increase the Levemir, critical care time spent 45 minutes 01/06/2020, patient seen and evaluated examined remains on nonrebreather mask still have problems associated with shortness of breath, care plan discussed with RN will continue current plan of care patient can be started on as needed breathing treatments will continue to gently diurese 01/05/2020, patient seen and evaluated examined remains on nonrebreather mask, nonverbal and noncommunicative essentially no significant change in neurological condition, she remained afebrile with stable hemodynamics her oxygen saturations improved to 96% on repeat nonrebreather mask 01/04/2020, patient laying on the bed on 100% nonrebreather mask and breathing is slightly short of breath, patient is on bronchodilator along with antibiotics, has been on Lasix as well, patient remains on Zosyn, labs reviewed white cell count is normal, labs reviewed, glucose is 342, BUN/creatinine is 25 and 0.7, stool for C. difficile is negative 01/02/2020, patient seen eval examined during the rounds patient has a rapid response this morning with the shortness of breath she however responded well with Lasix, Sands's catheter has been placed, shortness of breath have improved though, on 4 L saturation is 92% low-grade temperature of 99 is present, her chest x-ray assistive of the left lower lobe pneumonia and right perihilar infiltrate prominent lung markings likely fluid overload, Objective - Vital Signs Vital signs: Vital Signs Temp 97.8 F 01/19/20 08:00 Pulse 62 01/19/20 09:00 Resp 16 01/19/20 09:00 BP 150/78 01/19/20 09:00 Pulse Ox 93 L 01/19/20 09:00 Intake & Output 01/18/20 01/19/20 01/19/20 18:59 06:59 18:59 Intake Total 851.828 765.803 310.959 Output Total 1960 1250 1150 Balance -1108.172 -484.197 -839.041 Weight 83.5 kg 82 kg Intake: IV 220 120 30 0.9% NS 120 120 30 Piperacillin-Tazobactam 3 100 .375 gm In Sodium Chloride 0.9% 100 ml @ 25 mls/hr IVPB Q8HR [facility] Rx# :[id number] Intake, IV Titration 35.828 99.803 98.959 Amount Propofol 1,000 mg In 35.828 99.803 98.959 Empty Bag 1 bag @ Titrate IV .Q0M [facility] Rx#: [id number] Tube Feeding 456 456 152 Other 140 90 30 Output: Urine 1960 1250 1150 Other: Voiding Method Indwelling Catheter Indwelling Catheter Indwelling Catheter # Bowel Movements 1 - Exam - Neck Neck: no lymphadenopathy, no stridor - Respiratory Scattered rhonchi throughout, full ventilator support - Cardiovascular Regular rhythm and rate. S1 and S2 present, negative for S3, gallop or murmur. Trace edema to her bilateral lower extremities. - Gastrointestinal Abdomen soft and nondistended. - Integumentary Skin is warm and dry. No clubbing or cyanosis is present. Integumentary: no rash - Neurologic Recently off of propofol drip - Labs CBC & Chem 7: 01/19/20 05:10 01/19/20 05:10 Labs: Abnormal Lab Results - Last 24 Hours (Table) 01/18/20 01/18/20 01/18/20 Range/Units 04:14 11:41 16:09 ABG pH (7.35-7.45) ABG pCO2 (35-45) mmHg ABG pO2 (83-108) mmHg ABG HCO3 (21-25) mmol/L ABG Total CO2 (19-24) mmol/L ABG O2 Saturation (94-97) % Potassium (3.5-5.1) mmol/L Carbon Dioxide (22-30) mmol/L BUN (7-17) mg/dL Creatinine (0.52-1.04) mg/dL Glucose (74-99) mg/dL POC Glucose (mg/dL) 160 H 249 H (75-99) mg/dL Ferritin 338.1 H (10.0-291.0) ng/mL Creatine Kinase (30-135) U/L C-Reactive Protein (<10.0) mg/L Total Protein (6.3-8.2) g/dL Albumin (3.5-5.0) g/dL 01/18/20 01/19/20 01/19/20 Range/Units 21:02 00:11 04:10 ABG pH (7.35-7.45) ABG pCO2 (35-45) mmHg ABG pO2 (83-108) mmHg ABG HCO3 (21-25) mmol/L ABG Total CO2 (19-24) mmol/L ABG O2 Saturation (94-97) % Potassium (3.5-5.1) mmol/L Carbon Dioxide (22-30) mmol/L BUN (7-17) mg/dL Creatinine (0.52-1.04) mg/dL Glucose (74-99) mg/dL POC Glucose (mg/dL) 202 H 174 H 139 H (75-99) mg/dL Ferritin (10.0-291.0) ng/mL Creatine Kinase (30-135) U/L C-Reactive Protein (<10.0) mg/L Total Protein (6.3-8.2) g/dL Albumin (3.5-5.0) g/dL 01/19/20 01/19/20 01/19/20 Range/Units 05:06 05:10 08:19 ABG pH 7.47 H (7.35-7.45) ABG pCO2 52 H (35-45) mmHg ABG pO2 52 L* (83-108) mmHg ABG HCO3 38 H (21-25) mmol/L ABG Total CO2 40 H (19-24) mmol/L ABG O2 Saturation 87.0 L (94-97) % Potassium 3.4 L (3.5-5.1) mmol/L Carbon Dioxide 37 H (22-30) mmol/L BUN 29 H (7-17) mg/dL Creatinine 0.45 L (0.52-1.04) mg/dL Glucose 158 H (74-99) mg/dL POC Glucose (mg/dL) 147 H (75-99) mg/dL Ferritin (10.0-291.0) ng/mL Creatine Kinase <20 L (30-135) U/L C-Reactive Protein 10.6 H (<10.0) mg/L Total Protein 5.5 L (6.3-8.2) g/dL Albumin 2.7 L (3.5-5.0) g/dL Microbiology - Last 24 Hours (Table) 01/15/20 23:35 Gram Stain - Final Sputum Sputum Culture - Final Klebsiella pneumoniae Corynebacterium striatum Assessment and Plan Assessment: Sinus bradycardia with hypertension, monitor off of Lopressor and clonidine, continue hydralazine IV as needed consult cardiovascular disease and associated patient Norvasc dose has been escalated patient is manifesting adequate hemodyna mics heart rate is in 60s and blood pressure is adequate Acute hypoxic respiratory failure on ventilator COVID 19 pneumonia with some improvement in oxygenation Ventilator adjustment now patient is on 40 % oxygen but will be titrated oxygen down as tolerated, her peak airway pressures are stable high 20s , will keep peep of 8 over next 20 to hours we will continue weaning trial as tolerated se dation holiday along with CPAP and pressure support control trial Continue I's and Os negative side monitor urine output, increase Lasix to 40 mg IV every 12 hours Patient is getting trial of steroids seems to be tolerating well thus hyperglycemia is some improvement in chest x-ray and oxygenation, there is some anecdotal reports coming from [place] it helps oxygenation however with the cost of prolonged shedding of viral particles we'll continue it to once daily, after increasing the Lantus to 40 Sugars are better under control Aspiration pneumonia likely mixed bacterial and/or or gram-negative as the sputum is growing related, continue Zosyn Bilateral small pleural effusion multifactorial process Chronic right-sided weakness dysphagia and aphasia status post PEG tube COPD Insulin-dependent diabetes mellitus uncontrolled Hypertension hypertensive cardiovascular disease, will decrease Norvasc to 5 mg Chronic atrial fibrillation on anticoagulation Lovenox Critical care time 35 minutes Plan: Titrated oxygen down as as tolerated with slow lowering of PEEP, will be lowered subsequently as noted above Continue sedation holiday in his spontaneous breathing trials Will discuss with the family about further plan of care Anticoagulation. Lovenox twice a day Continue Norvasc other hemodynamic parameters as noted above Lowering of IV steroids for adjustment of insulin as needed Observe off of levo fed Gentle diuresis will keep her negative for another 24 hours Continue tube feed Ventilator adjustment Continue to check inflammatory labs for covid19 as needed Monitor sodium levels closely Continue respiratory and contact isolation Time with Patient: Greater than 30
[2020-01-19 11:46] LABS: Ferritin 351.8 ng/mL (10.0-291.0)
[2020-01-19 11:51] LABS: Glucose,Whole Blood 177 mg/dL (75-99)
[2020-01-19] MEDS: CHOLECALCIFEROL 1,000 UNIT TAB PEG/G-TUBE SCH (11:54)
--- NOTE | 2020-01-19 17:33 | PN ---
PROGRESS NOTE DATE OF SERVICE: 01/19/2020 REASON FOR FOLLOWUP: Pneumonia. INTERVAL HISTORY: The patient is currently afebrile. The patient is hemodynamically stable. FiO2 is currently at 40%. No significant purulent secretion throughout ET or any diarrhea per the nursing staff. PHYSICAL EXAMINATION: Blood pressure 143/78 with a pulse of 81, temperature 98.1, she is 95% on 40% FiO2. General description is an elderly female, lying in bed in no distress. RESPIRATORY SYSTEM: Unlabored breathing, decreased breath sounds in the base, with no wheeze. HEART: S1, S2. Regular rate and rhythm. ABDOMEN: Soft, no tenderness. LABS: Hemoglobin is 12.1, white count of 6.9, BUN of 29, creatinine 0.45. DIAGNOSTIC IMPRESSION AND PLAN: Patient with acute respiratory failure which is multifactorial with a component of pneumonia. Sputum finalized with Klebsiella. Antibiotic adjusted to Rocephin 2 g daily to continue and monitor clinical course closely. MMODL / IJN: [id number] / MTDD
[2020-01-19] MEDS: INSULIN DETEMIR (LEVEMIR) 100 UNIT/ML SYR SQ SCH (20:29)
[2020-01-19] MEDS: FERROUS SULFATE ORAL ELIXIR 300 MG/5 ML CUP PEG/G-TUBE SCH (20:30)
[2020-01-20] MEDS: PROPOFOL 1,000 MG in EMPTY BAG 1 BAG IV SCH ×2 (04:20→15:13)
[2020-01-20] MEDS: INSULIN ASPART (NovoLOG) 100 UNIT/ML VIAL SQ SCH ×6 (04:20→23:54)
[2020-01-20 04:26] LABS: Basophils # (A) 0.1 k/uL (0-0.2); Basophils % (A) 1 %; Eosinophils # (A) 0.2 k/uL (0-0.7); Eosinophils % (A) 3 %; HCT 39.5 % (34.0-46.0); HGB 12.2 gm/dL (11.4-16.0); Lymphocytes # (A) 1.7 k/uL (1.0-4.8); Lymphocytes % (A) 26 %; MCH 29.9 pg (25.0-35.0); MCHC 30.9 g/dL (31.0-37.0); MCV 96.7 fL (80.0-100.0); Mean Platelet Volume 10.2; Monocytes # (A) 0.4 k/uL (0-1.0); Monocytes % (A) 6 %; Neutrophils # (A) 4.1 k/uL (1.3-7.7); Neutrophils % (A) 62 %; Platelet Count 194 k/uL (150-450); RBC 4.09 m/uL (3.80-5.40); RDW 14.6 % (11.5-15.5); WBC 6.5 k/uL (3.8-10.6)
[2020-01-20 04:37] LABS: ALT 21 U/L (4-34); AST 15 U/L (14-36); African American GFR (CKD) >90 (>60 ml/min/1.73 sqM); Albumin 2.7 g/dL (3.5-5.0); Alkaline Phosphatase 71 U/L (38-126); Anion Gap 0 mmol/L; Blood Urea Nitrogen 31 mg/dL (7-17); C Reactive Protein 7.2 mg/L (<10.0); Calcium 10.2 mg/dL (8.4-10.2); Carbon Dioxide 37 mmol/L (22-30); Chloride 100 mmol/L (98-107); Creatine Kinase <20 U/L (30-135); Glucose 150 mg/dL (74-99); LDH 404 U/L (313-618); Non-African American GFR(CKD) 88 (>60 ml/min/1.73 sqM); Potassium 3.4 mmol/L (3.5-5.1); Sodium 137 mmol/L (137-145); Total Bilirubin 0.3 mg/dL (0.2-1.3); Total Protein 5.5 g/dL (6.3-8.2)
[2020-01-20] MEDS ORDERED: Potassium Replacement Protocol 1 EACH MISC MISCELLANE PRN (04:39)
[2020-01-20] MEDS: POTASSIUM BICARBONATE/CIT AC 20 MEQ TABLET.EFF NG-TUBE SCH ×2 (06:38→06:46)
[2020-01-20] MEDS: POTASSIUM CHLORIDE ER 20 MEQ TAB.ER PO SCH ×2 (06:46→08:16)
[2020-01-20] MEDS: POTASSIUM BICARBONATE/CIT AC 20 MEQ TABLET.EFF PO SCH ×4 (06:46→10:42)
[2020-01-20 07:48] LABS: Glucose,Whole Blood 267 mg/dL (75-99)
[2020-01-20 07:48] LABS: Glucose,Whole Blood 141 mg/dL (75-99)
[2020-01-20 07:48] LABS: Glucose,Whole Blood 278 mg/dL (75-99)
[2020-01-20 07:49] LABS: Glucose,Whole Blood 149 mg/dL (75-99)
[2020-01-20 07:49] LABS: Glucose,Whole Blood 153 mg/dL (75-99)
[2020-01-20] MEDS: FUROSEMIDE 10 MG/ML 4 ML VIAL IV SCH ×2 (08:14→20:34)
[2020-01-20] MEDS: PANTOPRAZOLE 40 MG/10 ML VIAL IV SCH (08:15)
[2020-01-20] MEDS: methylPREDNISolone SOD SUCCI 40 MG/ML 1 ML VIAL IV SCH (08:15)
[2020-01-20] MEDS: ENOXAPARIN 40 MG/0.4 ML SYRINGE SQ SCH ×2 (08:15→20:33)
[2020-01-20] MEDS: CHLORHEXIDINE GLUCONATE 15 ML CUP MUCOUS MEM SCH ×2 (08:15→20:33)
[2020-01-20] MEDS: amLODIPine 10 MG TAB PO SCH (08:16)
[2020-01-20] MEDS: CHOLECALCIFEROL 1,000 UNIT TAB PEG/G-TUBE SCH (08:16)
[2020-01-20] MEDS: LISINOPRIL 2.5 MG TAB PEG/G-TUBE SCH (08:17)
[2020-01-20] MEDS: ZINC SULFATE 220 MG CAP PO SCH (08:17)
[2020-01-20] MEDS: ALBUTEROL HFA INHALER INHALATION SCH ×4 (08:20→19:25)
[2020-01-20 08:35] LABS: ABG PO2 52 mmHg (83-108)
[2020-01-20 08:48] LABS: Glucose,Whole Blood 131 mg/dL (75-99)
[2020-01-20 09:28] LABS: ABG Base Excess 12.6 mmol/L; ABG HCO3 36 mmol/L (21-25); ABG Oxygen Saturation 94.5 % (94-97); ABG PCO2 44 mmHg (35-45); ABG PH 7.51 (7.35-7.45); ABG PO2 68 mmHg (83-108); ABG TCO2 37 mmol/L (19-24); Allen Test Performed? Yes
--- NOTE | 2020-01-20 10:16 | XR ---
EXAMINATION TYPE: XR chest 1V portable DATE OF EXAM: 01/20/2020 COMPARISON: 01/19/2020 HISTORY: Ventilatory dependent respiratory failure. TECHNIQUE: Single frontal view of the chest is obtained. FINDINGS: Endotracheal tube terminates approximately 5.0 cm from the khadar similar to the prior. Ca rdia mediastinal silhouette is partially obscured but appears enlarged. There are similar bilateral l ayering pleural effusions, overall small with associated bibasilar airspace disease. Biapical lucency suggests a component of underlying COPD. IMPRESSION: Similar small bilateral pleural effusions and associated bibasilar airspace disease may represent atelectasis or pneumonia. Stable endotracheal tube placement.
--- NOTE | 2020-01-20 10:27 | P.PN ---
Subjective Progress Note Date: 01/20/20 Principal diagnosis: Acute hypoxic respiratory failure on ventilator COVID 19 pneumonia Aspiration pneumonia likely mixed bacterial and/or or gram-negative related Chronic right-sided weakness dysphagia and aphasia status post PEG tube COPD Insulin-dependent diabetes mellitus uncontrolled Hypertension hypertensive cardiovascular disease Chronic atrial fibrillation on anticoagulation off of his Xeralto, has been initiated on Lovenox twice a day 01/20/2020, patient seen eval examined during the rounds overall respiratory status remains stable patient remains on assist control rate of 16 breathing 16, tidal Volume is 500 PEEP is 8, patient was on CPAP pressure support most of the day yesterday propofol was off now has been resumed, oxygen saturation 94-95%, arterial blood gases reviewed this is stable of the respiratory alkalosis we'll decrease her ventilation, will put patient on CPAP of 5 and pressure support of 5 and obtain a blood gas will stop propofol as well continue diuresis, sputum came back for positive for Klebsiella likely healthcare associated pneumonia patient is on a IV Rocephin dose has been adjusted, Klebsiella appears to be sensitive to Rocephin, patient has adequate urine output to feed tolerated well, no fever is present, labs fairly within normal limit electrolytes including protection initially will be replaced critical care time spent 35 minutes 01/19/2020, patient seen eval examined during the rounds labs reviewed medications reviewed care plan discussed with the staff at length patient has been on 40% oxygen and PEEP of 8 saturation is 94%, she is off of propofol remains nonverbal and noncommunicative like baseline due to prior CVA and hemiparesis, cannot do maximal respiratory pressure, also some on the weaning parameters cannot be achieved due to stroke in the past, hemodynamic status stable heart rate is stable blood pressure is stable off of propofol for last 1 hour, labs reviewed white cell count is 6900, arterial blood gas from this morning reviewed after that patient receive Lasix 40 mg IV put out over 350 mL of urine right away, per day she missed 3.41 potassium replacement protocol, chest x-ray from earlier this morning reviewed basal small pleural effusion along with atelectasis seen with interstitial edema overall remains essentially unchanged 01/18/2020, patient seen and evaluated, remains on ventilator stable oxygenation is slightly low patient however remains on stable vent settings FiO2 50% tidal volume of 458 of PEEP, assist control mode breathing about 20-24, oxygen saturation is 92%, patient remains on propofol 25 mics gently sedated, hemodynamic status stable heart and blood pressure is stable off of vasopressors, patient is tolerating well. She is slightly low this morning given extra Lasix 40 mg IV now we'll keep the patient on negative balance, peak airway pressure 30 tolerating vent adjustment well him to lower down the FiO2 to 40% and start his spontaneous breathing trial of CPAP of 5 and pressure support of 10 as tolerated an hour to 45 minutes during which will DC the propofol, labs reviewed, patient is growing gram-negative rods in the sputum, she is adequately covered with Zosyn, chest x-ray reviewed stable lines and tubes, interstitial edema bilaterally small pleural effusion right lower lobe stable infiltrate, critical care time spent 35 minutes 01/17/2020, patient seen eval reexamined during the rounds labs reviewed medications reviewed radiographic studies reviewed as well, patient is still on propofol 25 mics she gets on comfortable if lowers it down we'll keep it for now, ventilator setting is stable, pO2 has improved can go down oxygen to 50 and subsequently to 40%, will keep PEEP 8, peak airway pressure on around 30, suggestive of fairly good compliance, we'll continue to diurese patient after 40 mg of extra Lasix yesterday without 1.5 L of urine repeat that again, to feed being tolerated very well no significant diarrhea has been noted respiratory secretions are minimal, critical care time 35 minutes 01/16/2020, patient seen eval examined during the rounds labs reviewed medications reviewed care plan discussed with the primary service, patient FiO2 is slightly up to percent otherwise PEEP remains 8, tidal volume is 500 with a rate of 16 ventilation appears to be fairly adequate oxygen however remains low review of the data revealed that patient is slightly even and positive in last 48 hours will benefit from some diuresis and given extra Lasix today continue to feed, continue sedation currently on propofol 25 mics, x-ray is not done today, arterial blood gas reviewed labs reviewed. Current care time spent 35 minutes 01/15/2020, patient seen eval examined during the rounds labs reviewed medications reviewed care plan discussed with the staff at length, patient remains on full ventilator support with suctioning and movement she desaturates however similar episodethis morning at the time of chest x-ray when she was repo sitioned suction and transient desaturation happens arterial blood gas was done at the same time however after that on 25 mics of propofol she has been stable saturation have been 98-99% plan is to come down the oxygen to 40% will keep monitor PPEP 10 and if oxygen remains stable on 40% will go down to 8 by and of the day, hemodynamic status stable blood pressure is stable and did not require IV hydralazine, heart rate is improve into high 50s and low 60s, patient is off of clonidine and Lopressor now remains off of vasopressors, tolerating the feed well, urine output is good arterial blood gases reviewed adequate ventilation chest x-ray reviewed overall essentially stable with small bilateral pleural effusion, overall plan is to come down to oxygen of 40% and PEEP of 5 and next 24-48 hours then will initiate spontaneous breathing trials keep ins and outs even are negative side continue current dose of Solu-Medrol and continue antibiotics critical care time 35 minutes 01/14/2020, patient seen eval reexamined during the rounds labs reviewed medications reviewed, chest x-ray reviewed as well, patient remains sedated with propofol drip 25 mics, she is bradycardic heart rate is 40-45 with slightly elevated blood pressure 160-170 breathing with vent rate was initially 20 have been reduced to 16, tidal volume is 450 keep is 15 has been lowered down to 10 saturation is 95-96% chest x-ray reviewed right lower lobe infiltrate and small effusions seen overall lung parenchyma and infiltrate appears stable and continued to improve, patient is tolerating every feed very well labs reviewed CBC within normal limits chemistry revealed ABG combination of metabolic and respiratory alkalosis ventilator has been adjusted Lasix have been lowered down to once a day some contribution from his steroids presents which will be reduced to 40 daily, patient will be observed how she does with lower PEEP, we will start hydralazine IV for blood pressure control, continue to hold Lopressor and also hold clonidine we will get cardiovascular services opinion consultation, patient has been tolerating tube feed very well respiratory secretions are minimal adequate urine output has been present 01/13/2020, patient seen eval reexamined during the rounds labs reviewed medications reviewed radiographic studies reviewed as well patient FiO2 has been brought down to 60% she is on 15 of PEEP, her oxygen saturation 97% she is off of vasopressors, she is on 30 mics of propofol somewhat bradycardic will decrease of propofol to 20 mics, we'll continue to bring down the oxygen to 40% as tolerated in during next 24 hours, then will come on down and PEEP. Respiratory secretions are minimal to feed is tolerating well mental status not much change, developed bradycardia her beta blockers are being held, her chest x-ray showing small pleural effusion bilaterally and basal atelectasis and consolidation, tubes are stable, she remains on Solu-Medrol 40 every 12 hourly and Lovenox also 40 q 12, it appears that Solu-Medrol has been helping in improving and able to come down on oxygen, peak airway pressure 30, urine output has been adequate patient has some component of respiratory and metabolic a lkalosis, we will lower down the Lasix to 20 mg daily also will decrease the tidal volume to 450, care time spent 35 minuteto 01/12/2020, patient seen and evaluated today care plan discussed with the nurse at length radiographic studies and lab studies reviewed, patient remains on assist control mode rate of 20 breathing about 24 26th of patient remains at PEEP of 10 FiO2 of 80% oxygen saturation are 90-94% within increase the PEEP to 15 as blood pressure is stable and titrated oxygen down to 70-60% next 24 hours chest x-ray reviewed continued to show same pattern but overall condition appe ars to improve to feed as tolerated very well, CBC is normal arterial blood gases history of hypercapnic hypoxic respiratory failure, bicarb is slightly going up the patient seems to be tolerating steroid well however sugars are higher side remains on insulin 01/11/2020, patient seen eval examined during the rounds labs reviewed medications reviewed radiographic studies reviewed as well patient remains sedated with 40 mics of propofol, she'll decrease it to 30 mics off of levo fed drip, patient did start some levo fed last night but now off, noted that FiO2 has been escalated to 100% and PEEP is down to 5, we'll increase PEEP back to 10 and titrated oxygen down as tolerated to bring it down to goal of 70% in next 24 hours slowly will decrease his sedation as well, 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, left-sided slight worsening has been noted with small left- sided pleural effusion likely fluid overload some of the fluid is present on the right side as well patient medications have been reviewed, patient is on Norvasc 10 mg along with Catapres and Ogestrel, patient has been started on IV steroids given hypoxia And a Difficult Reports from [place] That Steroids Have Been Helpful in Improving Oxygenation but at the Cost of Increasing Shedding Time However, Eisenmenger's Slightly Positive Today, Patient Has Received Lasix, ABG Reviewed pH Is 7.46 PCO2 Is 51 PO2 Is 58 That Is on PEEP of 5 and 100% Oxygen, Her LDH Is up to 926 Ferritin C-Reactive Protein and IL6 Levels Are Pending 01/10/2020, patient seen and evaluated examined during the rounds labs reviewed medications reviewed care plan discussed with RN, patient FiO2 has been down to 60% and peak airway pressures are stable, patient remains on assist control mode rate of 20 breathing about 25-28 oxygen saturation 93% she is 10, spontaneous tidal volume on about 400 500 range patient has been getting his spontaneous breathing trial and she is been sedated with propofol drip very small dose of levofed is still going to come patient is on broad-spectrum antibiotics to feed is going on patient is on half normal saline as well chest x-ray shows diffuse infiltrate stable lines 01/08/2020, patient seen and evaluated examined in ICU patient remains on current ventilator with full ventilatory response be clear pressure slightly better than yesterday ranging from 30-32, patient is down to 70% now PEEP of 10 assist control is 20 breathing about 25-26 tidal volume is 400 this morning ABG reviewed ventilation is adequate slight hypoxia was noted but however sats at that time when the gas were done were 91-92% since that time patient has received 20 of Lasix and put out about 550 mL of urine and saturation is improved to 96%, patient is afebrile, patient would need a PICC line tomorrow, remains on propofol dose has been escalated today, tolerating to feed well, sugars are in low 200 range, LDH is 817 C-reactive protein is 25.2 on the they are showing downward trend her plan discussed with the staff at length will increase her Lasix to 20 mg daily will keep patient on 70% and PEEP of 10 and today attempt to titrate oxygen down again tomorrow chest x-ray showed some improved aviation compared to prior study stable ET tube, and seems to tolerating Lasix well any significant compromise in hemodynamic status critical care time spent 35 minutes 01/07/2020, patient does live increase respiratory distress earlier this morning oxygen remains very poor saturation dropped down into 70s to 80s percent, pO2 was only 46 patient was intubated and placed in ICU where patient was seen eval reexamined, patient remains on levo fed drip on 5 mics, her hemodynamic is slightly better systolic blood pressure ranging from 100 210, patient is on propofol 20, vent setting include assist control of 20 tidal volume of 400, PEEP of 10, FiO2 have been lowered down to 90%, ABG and laboratory data data reviewed chest x-ray reviewed mild bilateral interstitial infiltrate consistent with viral pneumonia, patient is being started on Lovenox twice a day continued on tube feed will increase gentle hydration, blood glucose is running slightly high will increase the Levemir, critical care time spent 45 minutes 01/06/2020, patient seen and evaluated examined remains on nonrebreather mask still have problems associated with shortness of breath, care plan discussed with RN will continue current plan of care patient can be started on as needed breathing treatments will continue to gently diurese 01/05/2020, patient seen and evaluated examined remains on nonrebreather mask, nonverbal and noncommunicative essentially no significant change in neurological condition, she remained afebrile with stable hemodynamics her oxygen saturations improved to 96% on repeat nonrebreather mask 01/04/2020, patient laying on the bed on 100% nonrebreather mask and breathing is slightly short of breath, patient is on bronchodilator along with antibiotics, has been on Lasix as well, patient remains on Zosyn, labs reviewed white cell count is normal, labs reviewed, glucose is 342, BUN/creatinine is 25 and 0.7, stool for C. difficile is negative 01/02/2020, patient seen eval examined during the rounds patient has a rapid response this morning with the shortness of breath she however responded well with Lasix, Sands's catheter has been placed, shortness of breath have improved though, on 4 L saturation is 92% low-grade temperature of 99 is present, her chest x-ray assistive of the left lower lobe pneumonia and right perihilar infiltrate prominent lung markings likely fluid overload, Objective - Vital Signs Vital signs: Vital Signs Temp 98.1 F 01/20/20 08:00 Pulse 60 01/20/20 10:00 Resp 16 01/20/20 10:00 BP 123/58 01/20/20 10:00 Pulse Ox 91 L 01/20/20 10:00 Intake & Output 01/19/20 01/20/20 01/20/20 18:59 06:59 18:59 Intake Total 832.000 789.324 260 Output Total 2725 1280 500 Balance -1893.000 -490.676 -240 Weight 82 kg 79.1 kg Intake: IV 110 140 40 0.9% NS 110 140 40 Intake, IV Titration 100.000 111.324 Amount Propofol 1,000 mg In 100.000 111.324 Empty Bag 1 bag @ Titrate IV .Q0M [facility] Rx#: [id number] Tube Feeding 532 418 190 Other 90 120 30 Output: Urine 2725 1280 500 Other: Voiding Method Indwelling Catheter Indwelling Catheter Indwelling Catheter # Voids 1 - Exam - Neck Neck: no lymphadenopathy, no stridor - Respiratory Scattered rhonchi throughout, full ventilator support - Cardiovascular Regular rhythm and rate. S1 and S2 present, negative for S3, gallop or murmur. Trace edema to her bilateral lower extremities. - Gastrointestinal Abdomen soft and nondistended. - Integumentary Skin is warm and dry. No clubbing or cyanosis is present. Integumentary: no rash - Neurologic Recently off of propofol drip - Labs CBC & Chem 7: 01/20/20 04:00 01/20/20 04:00 Labs: Abnormal Lab Results - Last 24 Hours (Table) 01/19/20 01/19/20 01/19/20 Range/Units 05:06 05:10 11:50 MCHC (31.0-37.0) g/dL ABG pH (7.35-7.45) ABG pO2 52 L* (83-108) mmHg ABG HCO3 (21-25) mmol/L ABG Total CO2 (19-24) mmol/L Potassium (3.5-5.1) mmol/L Carbon Dioxide (22-30) mmol/L BUN (7-17) mg/dL Glucose (74-99) mg/dL POC Glucose (mg/dL) 177 H (75-99) mg/dL Ferritin 351.8 H (10.0-291.0) ng/mL Creatine Kinase (30-135) U/L Total Protein (6.3-8.2) g/dL Albumin (3.5-5.0) g/dL 01/19/20 01/19/20 01/19/20 Range/Units 17:09 19:58 19:59 MCHC (31.0-37.0) g/dL ABG pH (7.35-7.45) ABG pO2 (83-108) mmHg ABG HCO3 (21-25) mmol/L ABG Total CO2 (19-24) mmol/L Potassium (3.5-5.1) mmol/L Carbon Dioxide (22-30) mmol/L BUN (7-17) mg/dL Glucose (74-99) mg/dL POC Glucose (mg/dL) 141 H 267 H 278 H (75-99) mg/dL Ferritin (10.0-291.0) ng/mL Creatine Kinase (30-135) U/L Total Protein (6.3-8.2) g/dL Albumin (3.5-5.0) g/dL 01/19/20 01/20/20 01/20/20 Range/Units 23:31 04:00 04:00 MCHC 30.9 L (31.0-37.0) g/dL ABG pH (7.35-7.45) ABG pO2 (83-108) mmHg ABG HCO3 (21-25) mmol/L ABG Total CO2 (19-24) mmol/L Potassium 3.4 L (3.5-5.1) mmol/L Carbon Dioxide 37 H (22-30) mmol/L BUN 31 H (7-17) mg/dL Glucose 150 H (74-99) mg/dL POC Glucose (mg/dL) 153 H (75-99) mg/dL Ferritin (10.0-291.0) ng/mL Creatine Kinase <20 L (30-135) U/L Total Protein 5.5 L (6.3-8.2) g/dL Albumin 2.7 L (3.5-5.0) g/dL 01/20/20 01/20/20 01/20/20 Range/Units 04:04 04:49 08:46 MCHC (31.0-37.0) g/dL ABG pH 7.51 H (7.35-7.45) ABG pO2 68 L (83-108) mmHg ABG HCO3 36 H (21-25) mmol/L ABG Total CO2 37 H (19-24) mmol/L Potassium (3.5-5.1) mmol/L Carbon Dioxide (22-30) mmol/L BUN (7-17) mg/dL Glucose (74-99) mg/dL POC Glucose (mg/dL) 149 H 131 H (75-99) mg/dL Ferritin (10.0-291.0) ng/mL Creatine Kinase (30-135) U/L Total Protein (6.3-8.2) g/dL Albumin (3.5-5.0) g/dL Assessment and Plan Assessment: Sinus bradycardia with hypertension, monitor off of Lopressor and clonidine, continue hydralazine IV as needed consult cardiovascular disease and associated patient Norvasc dose has been escalated patient is manifesting adequate hemodynamics heart rate is in 60s and blood pressure is adequate Acute hypoxic respiratory failure on ventilator COVID 19 pneumonia with some improvement in oxygenation Ventilator adjustment now patient is on 40 % oxygen but will be titrated oxygen down as tolerated, her peak airway pressures are stable high 20s , will lowered PEEP to 5, will continue weaning trial as tolerated sedation holiday along with CPAP and pressure support control trial if does well on clinical grounds and arterial blood gas consider extubation, hold propofol Continue I's and Os negative side monitor urine output, increase Lasix to 40 mg IV every 12 hours Patient is getting trial of steroids seems to be tolerating well thus hyperglycemia is some improvement in chest x-ray and oxygenation, there is some anecdotal reports coming from [place] it helps oxygenation however with the cost of prolonged shedding of viral particles we'll continue it to once daily, after increasing the Lantus to 40 Sugars are better under control Aspiration pneumonia likely mixed bacterial and/or or gram-negative as the sputum is growing related, continue Zosyn Bilateral small pleural effusion multifactorial process Chronic right-sided weakness dysphagia and aphasia status post PEG tube COPD Insulin-dependent diabetes mellitus uncontrolled Hypertension hypertensive cardiovascular disease, will decrease Norvasc to 5 mg Chronic atrial fibrillation on anticoagulation Lovenox Critical care time 35 minutes Plan: Titrated oxygen down as as tolerated with slow lowering of PEEP, will be lowered subsequently as noted above Continue sedation holiday in his spontaneous breathing trials Will discuss with the family about further plan of care Anticoagulation. Lovenox twice a day Continue Norvasc other hemodynamic parameters as noted above Lowering of IV steroids for adjustment of insulin as needed Observe off of levo fed Gentle diuresis will keep her negative for another 24 hours Continue tube feed Ventilator adjustment Continue to check inflammatory labs for covid19 as needed Monitor sodium levels closely Continue respiratory and contact isolation Time with Patient: Greater than 30
[2020-01-20 11:36] LABS: ABG Base Excess 11.8 mmol/L; ABG HCO3 36 mmol/L (21-25); ABG Oxygen Saturation 84.6 % (94-97); ABG PCO2 52 mmHg (35-45); ABG PH 7.45 (7.35-7.45); ABG TCO2 38 mmol/L (19-24); Allen Test Performed? Yes
[2020-01-20 11:39] LABS: ABG PO2 50 mmHg (83-108)
[2020-01-20 11:55] LABS: Glucose,Whole Blood 182 mg/dL (75-99)
[2020-01-20] MEDS: NOREPINEPHRINE 4 MG in SODIUM CHLORIDE 0.9% 250 ML IV SCH (15:10)
[2020-01-20 15:50] LABS: Glucose,Whole Blood 234 mg/dL (75-99)
--- NOTE | 2020-01-20 17:17 | P.PN ---
Subjective Progress Note Date: 01/19/20 Soledad Enriquez, is an 79-year-old female who resides at a care home at this time will was noticed to have worsening mental status and persistent cough, patient started having elevated temperature up to 101 at that point she was sent to [facility] emergency room she had testing for influenza A and B which were negative she also had an instant test for Covid 19 which was positive she was admitted to telemetry floor she was started on IV Zithromax pulmonary and infectious disease consultation were requested. Patient also had evidence of dehydration with hypernatremia elevated sodium level at 151. Patient has a known history of multiple medical problems including history of stroke with right sided paralysis, history of aspiration patient has a PEG tube for feeding, history of insulin-dependent diabetes mellitus, history of hypertension, history of hyperlipidemia, and history of paroxysmal atrial fibrillation. On presentation patient had a temperature of 101 pulse of 82 respiration 18 blood pressure 119/63 and pulse ox of 91% on 4 L nasal cannula. White blood count was 4.8 chest x-ray revealed evidence of left basilar opacity. On 12/30/2019 patient was seen and examined on the medical floor she is somnolent responsive in no apparent distress there is low-grade fever temperature is 100.8 there is no chills no headache or dizziness no chest pain no shortness of breath no cough no nausea or vomiting no abdominal pain no diarrhea and no burning was urination. Nurse noticed some vaginal bleeding, hemoglobin is stable at 15. Pulse ox is 96% on 4 L nasal cannula , On 12/31/2019 patient was seen and examined on the medical floor she is somnolent responsive in no apparent distress, her fever is subsiding temperatures this morning 99 pulse ox is 92% on 4 L nasal cannula, patient is denying any complaints at this time however, she does not seem to be listening much to the questions, and she goes back to sleep fast. White blood count today is normal at 4.1 hemoglobin is 15.2 potassium is elevated at 5.8 On 01/01/2020 patient was seen and examined on the medical floor she is more alert and responsive today there is no fever or chills no headache or dizziness no chest pain no shortness of breath no cough no nausea or vomiting no abdominal pain no diarrhea and no urinary symptoms, she is receiving feeding through PEG tube at night, glucose level is elevated again, will increase Lantus dose to 25 units at bedtime, and continue was inserted into sliding scale. Patient is receiving oxygen via nasal cannula at 4 L her pulse ox is 92% patient does not s eem to be in any distress her temperature heart rates respiration rate and blood pressure are in normal range white blood count is 3.8 potassium 4.8 On 01/02/2020 patient was seen and examined on the medical floor she is alert and responsive in no apparent distress. This morning patient had an episode of shortness of breath with decreased O2 sat duration A team was called patient received IV Lasix Sands catheter was inserted chest x-ray was done. Currently patient is doing better pulse ox is 92% on 4 L nasal cannula. On 01/03/2020 patient was seen and examined on the medical floor she is alert responsive in no apparent distress, her pulse ox is 92% on 6 L nasal cannula she is afebrile blood pressure is 123/87 chest x-ray done yesterday reveals left lower lobe infiltrate and right perihilar infiltrates. Without significant improvement from prior x-rays. On 01/04/2020 patient was seen and examined on the medical floor she is more alert and responsive today he denies any pain or discomfort, her pulse ox was lower today and she was switched to a nonrebreather mask On 01/05/2020 patient was seen and examined on the medical floor, she is alert and responsive at this time, she is tolerating tube feeding well, she denied any pain or discomfort. On 01/06/2020 patient was seen and examined on the medical floor, she is alert responsive in no apparent distress she is answering a few questions with yes or no or nodding her head she is tolerating tube feeding well she is denying any pain or discomfort at this time, her temperature is 98.1 blood pressure 135/75 pulse ox 90% on nonrebreather mask. On 01/07/2020 Patient was seen and examined in the ICU. Around 7:00 am this morning patient was on the floor she was having worsening shortness of breath and using accessory muscles she was on nonrebreather mask and her O2 sat duration was 88% Dr. Caba office administration was contacted patient was transferred to ICU she was intubated sedated and started on mechanical ventilation, she was also started on levophed for blood pressure support. On 01/08/2020 Patient was seen and examined in the ICU. She is intubated sedated maintained on mechanical ventilation, she is still on a small dose of Levophed. She is receiving tube feeding via PEG tube. Her ABG reveals a pH of 7.4 to pCO2 45 by mouth to 59 FiO2 is 70% On 01/09/2020 patient was seen and examined in the ICU she remains intubated sedated maintained on mechanical ventilation, she remains on a small dose of levophed for pressure support. ABG reveals a pH of 7.4 pCO2 47 PO2 77 with FiO2 of 70% her temperature is 90.8 pulse 69 respiration 27 blood pressure 112/70 On 01/10/2020 patient was seen and examined in the ICU she is intubated sedated maintained on mechanical ventilation, temperature is 97.9 pulse 62 respiration 20 blood pressure 121/73 ABG reveals pH of 7.39 pCO2 52 by mouth to 59 FiO2 is 60% no significant change in condition since yesterday patient is receiving tube feeding. She was not seen by critical care yesterday due to personal reasons per nurse. At this time will change consult for pulmonary and critical care to Dr. Perez. On 01/11/2020 Patient was seen and examined in the ICU she is intubated, sedated, maintained on mechanical ventilation. there is no fever or chills. ABs reveals PH 7.46 PCO2 51 PO2 58 FIO@ 100 % On 01/12/2020 patient was seen and examined in the ICU she is intubated sedated maintained on mechanical ventilation she is not on any pressure support there is no fever or chills she is receiving tube feeding. On 01/13/2020 patient was seen and examined in the ICU she is intubated sedated maintained on mechanical ventilation, she is maintained on 2 feeding glucose is elevated, dose of Levemir will be increased to 35 units daily, continue with sliding scale. ABG reveals pH 7.5 one pCO2 46 by mouth to 90 FiO2 of 60% On 01/14/2020 patient was seen and examined in the ICU she is intubated sedated maintained on mechanical ventilation she is also maintained on PEG tube feeding she had episodes of bradycardia cardiology were consulted and beta herminio were discontinued and patient was started on Norvasc patient also is having some minimal elevation in her liver enzymes pravastatin was discontinued. Otherwise no significant change in her condition patient remains on mechanical ventilation no weaning trials are scheduled for today. On 01/15/2020 patient was seen and examined in the ICU she is intubated sedated maintained on mechanical ventilation she is receiving PEG tube feeding. Case was discussed with Dr. Kamara office administration. Patient is stable and is improving she is alert when her sedation is decreased however her O2 saturation drops with sedation holidays. There is no fever or chills. Temperature is 97.7 pulse 60 respirations 17 blood pressure 143/74 ABG reveals a pH of 7.46 pCO2 52 by mouth to 52 FiO2 at this time is 40% On 01/16/2020 patient was seen and examined in the ICU she is intubated sedated maintained on mechanical ventilation, FiO2 and PEEP are being decreased gradually arterial blood gases reveal a pH of 7.46 pCO2 51 CO2 54 FiO2 of 40% patient is febrile temperature is 98.1 blood pressure 130/76 she is not on any pressure support she is receiving PEG tube feeding. On 01/17/2020 patient was seen and examined in the ICU she is intubated sedated maintained on mechanical ventilation, vital exam reveals a temperature of 99.2 pulse 76 respiration 16 blood pressure 117/57 white blood count is 7.4 hemoglobin 13.9 platelets count 116 BUN is 30 creatinine 0.47 Arterial blood gas reveals a pH of 7.48 pCO2 49 by mouth to 90 on FiO2 of 60% On 01/18/2020 patient was seen and examined in the ICU she is intubated sedated maintained on mechanical ventilation, she had one hour sedation holiday this morning, patient was able to respond, she started having some cough and tachypnea and she was started back on sedation. Vital exam reveals a temperature of 98.6 pulse 82 respiration 20 blood pressure 118/61 white blood count is 6.5 hemoglobin 12.3 arterial blood gas revealed pH 7.42 pCO2 59 CO2 59 FiO2 50% On 01/19/2020 patient was seen and examined in the ICU she is intubated sedated maintained on mechanical ventilation she is receiving sedation holidays and is followed closely by pulmonary critical care and infectious disease patient is improving gradually Objective - Vital Signs Vital signs: Vital Signs Temp 98.1 F 01/19/20 16:00 Pulse 81 01/19/20 17:00 Resp 16 01/19/20 17:00 BP 143/78 01/19/20 17:00 Pulse Ox 94 L 01/19/20 17:00 Intake & Output 04/01/19/20 01/19/20 18:59 06:59 18:59 Intake Total 851.828 765.803 792.959 Output Total 19595 Balance -1108.172 -484.197 -1882.041 Weight 83.5 kg 82 kg 82 kg Intake: IV 220 120 110 0.9% NS 120 120 110 Piperacillin-Tazobactam 3 100 .375 gm In Sodium Chloride 0.9% 100 ml @ 25 mls/hr IVPB Q8HR [facility] Rx# :[id number] Intake, IV Titration 35.828 99.803 98.959 Amount Propofol 1,000 mg In 35.828 99.803 98.959 Empty Bag 1 bag @ Titrate IV .Q0M [facility] Rx#: [id number] Tube Feeding [phone] Other 140 90 90 Output: Urine 19595 Other: Voiding Method Indwelling Catheter Indwelling Catheter Indwelling Catheter # Voids 1 # Bowel Movements 1 - Exam In general patient is intubated sedated maintained on mechanical ventilation HEENT head normocephalic and atraumatic Neck is supple no JVD no goiter no lymphadenopathy Chest exam reveals a few scattered crackles no wheezing Cardiac exam reveals regular heart sounds no gallops no murmurs Abdomen is soft nontender no organomegaly with normal bowel sounds Extremity exam reveals no edema no cyanosis or clubbing - Labs CBC & Chem 7: 01/20/20 04:00 01/20/20 04:00 Labs: Abnormal Lab Results - Last 24 Hours (Table) 01/18/20 01/19/20 01/19/20 Range/Units 21:02 00:11 04:10 ABG pH (7.35-7.45) ABG pCO2 (35-45) mmHg ABG pO2 (83-108) mmHg ABG HCO3 (21-25) mmol/L ABG Total CO2 (19-24) mmol/L ABG O2 Saturation (94-97) % Potassium (3.5-5.1) mmol/L Carbon Dioxide (22-30) mmol/L BUN (7-17) mg/dL Creatinine (0.52-1.04) mg/dL Glucose (74-99) mg/dL POC Glucose (mg/dL) 202 H 174 H 139 H (75-99) mg/dL Ferritin (10.0-291.0) ng/mL Creatine Kinase (30-135) U/L C-Reactive Protein (<10.0) mg/L Total Protein (6.3-8.2) g/dL Albumin (3.5-5.0) g/dL 01/19/20 01/19/20 01/19/20 Range/Units 05:06 05:10 08:19 ABG pH 7.47 H (7.35-7.45) ABG pCO2 52 H (35-45) mmHg ABG pO2 52 L* (83-108) mmHg ABG HCO3 38 H (21-25) mmol/L ABG Total CO2 40 H (19-24) mmol/L ABG O2 Saturation 87.0 L (94-97) % Potassium 3.4 L (3.5-5.1) mmol/L Carbon Dioxide 37 H (22-30) mmol/L BUN 29 H (7-17) mg/dL Creatinine 0.45 L (0.52-1.04) mg/dL Glucose 158 H (74-99) mg/dL POC Glucose (mg/dL) 147 H (75-99) mg/dL Ferritin 351.8 H (10.0-291.0) ng/mL Creatine Kinase <20 L (30-135) U/L C-Reactive Protein 10.6 H (<10.0) mg/L Total Protein 5.5 L (6.3-8.2) g/dL Albumin 2.7 L (3.5-5.0) g/dL 01/19/20 Range/Units 11:50 ABG pH (7.35-7.45) ABG pCO2 (35-45) mmHg ABG pO2 (83-108) mmHg ABG HCO3 (21-25) mmol/L ABG Total CO2 (19-24) mmol/L ABG O2 Saturation (94-97) % Potassium (3.5-5.1) mmol/L Carbon Dioxide (22-30) mmol/L BUN (7-17) mg/dL Creatinine (0.52-1.04) mg/dL Glucose (74-99) mg/dL POC Glucose (mg/dL) 177 H (75-99) mg/dL Ferritin (10.0-291.0) ng/mL Creatine Kinase (30-135) U/L C-Reactive Protein (<10.0) mg/L Total Protein (6.3-8.2) g/dL Albumin (3.5-5.0) g/dL Assessment and Plan Plan: #1 pneumonia likely related to COVID 19 viral pneumonitis, followed by pulmonary and infectious disease, condition has worsened over night patient is currently in ICU maintained on mechanical ventilation #2 severe hypernatremia, on admission corrected #3 mental status changes likely related to hypernatremia and metabolic encephalopathy related to infection #4 acute hypoxic respiratory failure related to pneumonia, requiring oxygen at 4 L nasal cannula at this time #5 underlying history of hypertension #6 underlying history of COPD #7 underlying history of insulin-dependent diabetes mellitus, insulin dose adj usted today Levemir increased to 35 units daily #8 underlying history of stroke with right sided paralysis #9 chronic dysphagia and aspiration requiring PEG tube feeding #10 underlying history of atrial fibrillation maintained on Xarelto #11 vaginal bleeding, at this time will monitor closely, will check daily CBC, and monitor for amount of bleeding. Once her current illness has subsided, will investigate further with pelvic ultrasound and [employer]IDENT SERVICE COORDINATOR consult. #12 hyperkalemia, corrected At this time patient is into in the intensive care unit, no change in condition since yesterday She is intubated sedated maintained on mechanical ventilation Consultation for pulmonary and infectious disease requested in the emergency room and are following patient's No significant change in condition over the last few days awaiting possible weaning trials in the next 1-2 days Prognosis is guarded due to multiple underlying comorbid conditions
--- NOTE | 2020-01-20 17:19 | P.PN ---
Subjective Progress Note Date: 01/20/20 Soledad Enriquez, is an 79-year-old female who resides at a group home at this time will was noticed to have worsening mental status and persistent cough, patient started having elevated temperature up to 101 at that point she was sent to [facility] emergency room she had testing for influenza A and B which were negative she also had an instant test for Covid 19 which was positive she was admitted to telemetry floor she was started on IV Zithromax pulmonary and infectious disease consultation were requested. Patient also had evidence of dehydration with hypernatremia elevated sodium level at 151. Patient has a known history of multiple medical problems including history of stroke with right sided paralysis, history of aspiration patient has a PEG tube for feeding, history of insulin-dependent diabetes mellitus, history of hypertension, history of hyperlipidemia, and history of paroxysmal atrial fibrillation. On presentation patient had a temperature of 101 pulse of 82 respiration 18 blood pressure 119/63 and pulse ox of 91% on 4 L nasal cannula. White blood count was 4.8 chest x-ray revealed evidence of left basilar opacity. On 12/30/2019 patient was seen and examined on the medical floor she is somnolent responsive in no apparent distress there is low-grade fever temperature is 100.8 there is no chills no headache or dizziness no chest pain no shortness of breath no cough no nausea or vomiting no abdominal pain no diarrhea and no burning was urination. Nurse noticed some vaginal bleeding, hemoglobin is stable at 15. Pulse ox is 96% on 4 L nasal cannula , On 12/31/2019 patient was seen and examined on the medical floor she is somnolent responsive in no apparent distress, her fever is subsiding temperatures this morning 99 pulse ox is 92% on 4 L nasal cannula, patient is denying any complaints at this time however, she does not seem to be listening much to the questions, and she goes back to sleep fast. White blood count today is normal at 4.1 hemoglobin is 15.2 potassium is elevated at 5.8 On 01/01/2020 patient was seen and examined on the medical floor she is more alert and responsive today there is no fever or chills no headache or dizziness no chest pain no shortness of breath no cough no nausea or vomiting no abdominal pain no diarrhea and no urinary symptoms, she is receiving feeding through PEG tube at night, glucose level is elevated again, will increase Lantus dose to 25 units at bedtime, and continue was inserted into sliding scale. Patient is receiving oxygen via nasal cannula at 4 L her pulse ox is 92% patient does not s eem to be in any distress her temperature heart rates respiration rate and blood pressure are in normal range white blood count is 3.8 potassium 4.8 On 01/02/2020 patient was seen and examined on the medical floor she is alert and responsive in no apparent distress. This morning patient had an episode of shortness of breath with decreased O2 sat duration A team was called patient received IV Lasix Sands catheter was inserted chest x-ray was done. Currently patient is doing better pulse ox is 92% on 4 L nasal cannula. On 01/03/2020 patient was seen and examined on the medical floor she is alert responsive in no apparent distress, her pulse ox is 92% on 6 L nasal cannula she is afebrile blood pressure is 123/87 chest x-ray done yesterday reveals left lower lobe infiltrate and right perihilar infiltrates. Without significant improvement from prior x-rays. On 01/04/2020 patient was seen and examined on the medical floor she is more alert and responsive today he denies any pain or discomfort, her pulse ox was lower today and she was switched to a nonrebreather mask On 01/05/2020 patient was seen and examined on the medical floor, she is alert and responsive at this time, she is tolerating tube feeding well, she denied any pain or discomfort. On 01/06/2020 patient was seen and examined on the medical floor, she is alert responsive in no apparent distress she is answering a few questions with yes or no or nodding her head she is tolerating tube feeding well she is denying any pain or discomfort at this time, her temperature is 98.1 blood pressure 135/75 pulse ox 90% on nonrebreather mask. On 01/07/2020 Patient was seen and examined in the ICU. Around 7:00 am this morning patient was on the floor she was having worsening shortness of breath and using accessory muscles she was on nonrebreather mask and her O2 sat duration was 88% Dr. Caba nitrator operator was contacted patient was transferred to ICU she was intubated sedated and started on mechanical ventilation, she was also started on levophed for blood pressure support. On 01/08/2020 Patient was seen and examined in the ICU. She is intubated sedated maintained on mechanical ventilation, she is still on a small dose of Levophed. She is receiving tube feeding via PEG tube. Her ABG reveals a pH of 7.4 to pCO2 45 by mouth to 59 FiO2 is 70% On 01/09/2020 patient was seen and examined in the ICU she remains intubated sedated maintained on mechanical ventilation, she remains on a small dose of levophed for pressure support. ABG reveals a pH of 7.4 pCO2 47 PO2 77 with FiO2 of 70% her temperature is 90.8 pulse 69 respiration 27 blood pressure 112/70 On 01/10/2020 patient was seen and examined in the ICU she is intubated sedated maintained on mechanical ventilation, temperature is 97.9 pulse 62 respiration 20 blood pressure 121/73 ABG reveals pH of 7.39 pCO2 52 by mouth to 59 FiO2 is 60% no significant change in condition since yesterday patient is receiving tube feeding. She was not seen by critical care yesterday due to personal reasons per nurse. At this time will change consult for pulmonary and critical care to Dr. Perez. On 01/11/2020 Patient was seen and examined in the ICU she is intubated, sedated, maintained on mechanical ventilation. there is no fever or chills. ABs reveals PH 7.46 PCO2 51 PO2 58 FIO@ 100 % On 01/12/2020 patient was seen and examined in the ICU she is intubated sedated maintained on mechanical ventilation she is not on any pressure support there is no fever or chills she is receiving tube feeding. On 01/13/2020 patient was seen and examined in the ICU she is intubated sedated maintained on mechanical ventilation, she is maintained on 2 feeding glucose is elevated, dose of Levemir will be increased to 35 units daily, continue with sliding scale. ABG reveals pH 7.5 one pCO2 46 by mouth to 90 FiO2 of 60% On 01/14/2020 patient was seen and examined in the ICU she is intubated sedated maintained on mechanical ventilation she is also maintained on PEG tube feeding she had episodes of bradycardia cardiology were consulted and beta herminio were discontinued and patient was started on Norvasc patient also is having some minimal elevation in her liver enzymes pravastatin was discontinued. Otherwise no significant change in her condition patient remains on mechanical ventilation no weaning trials are scheduled for today. On 01/15/2020 patient was seen and examined in the ICU she is intubated sedated maintained on mechanical ventilation she is receiving PEG tube feeding. Case was discussed with Dr. Kamara nitrator operator. Patient is stable and is improving she is alert when her sedation is decreased however her O2 saturation drops with sedation holidays. There is no fever or chills. Temperature is 97.7 pulse 60 respirations 17 blood pressure 143/74 ABG reveals a pH of 7.46 pCO2 52 by mouth to 52 FiO2 at this time is 40% On 01/16/2020 patient was seen and examined in the ICU she is intubated sedated maintained on mechanical ventilation, FiO2 and PEEP are being decreased gradually arterial blood gases reveal a pH of 7.46 pCO2 51 CO2 54 FiO2 of 40% patient is febrile temperature is 98.1 blood pressure 130/76 she is not on any pressure support she is receiving PEG tube feeding. On 01/17/2020 patient was seen and examined in the ICU she is intubated sedated maintained on mechanical ventilation, vital exam reveals a temperature of 99.2 pulse 76 respiration 16 blood pressure 117/57 white blood count is 7.4 hemoglobin 13.9 platelets count 116 BUN is 30 creatinine 0.47 Arterial blood gas reveals a pH of 7.48 pCO2 49 by mouth to 90 on FiO2 of 60% On 01/18/2020 patient was seen and examined in the ICU she is intubated sedated maintained on mechanical ventilation, she had one hour sedation holiday this morning, patient was able to respond, she started having some cough and tachypnea and she was started back on sedation. Vital exam reveals a temperature of 98.6 pulse 82 respiration 20 blood pressure 118/61 white blood count is 6.5 hemoglobin 12.3 arterial blood gas revealed pH 7.42 pCO2 59 CO2 59 FiO2 50% On 01/19/2020 patient was seen and examined in the ICU she is intubated sedated maintained on mechanical ventilation she is receiving sedation holidays and is followed closely by pulmonary critical care and infectious disease patient is improving gradually On 01/20/2020 patient was seen and examined in the ICU she remains intubated and sedated she is receiving sedation holidays and is tolerating wel there is no fever or chills , she is maintained on IV antibiotics her ABG reveals a pH of 7.5 one pCO2 44 pO2 64 FiO2 is 40% she is improving gradually Objective - Vital Signs Vital signs: Vital Signs Temp 98.3 F 01/20/20 16:00 Pulse 74 01/20/20 17:00 Resp 17 01/20/20 17:00 BP 122/64 01/20/20 17:00 Pulse Ox 98 01/20/20 17:00 Intake & Output 01/19/20 01/20/20 01/20/20 18:59 06:59 18:59 Intake Total 832.000 789.324 862.000 Output Total 2725 1280 1455 Balance -1893.000 -490.676 -593.000 Weight 82 kg 79.1 kg Intake: IV 110 140 110 0.9% NS 110 140 110 Intake, IV Titration 100.000 111.324 100.000 Amount Propofol 1,000 mg In 100.000 111.324 100.000 Empty Bag 1 bag @ Titrate IV .Q0M [facility] Rx#: [id number] Tube Feeding 532 418 532 Other 90 120 120 Output: Urine 2725 1280 1455 Other: Voiding Method Indwelling Catheter Indwelling Catheter Indwelling Catheter # Voids 1 - Exam In general patient is intubated sedated maintained on mechanical ventilation HEENT head normocephalic and atraumatic Neck is supple no JVD no goiter no lymphadenopathy Chest exam reveals a few scattered crackles no wheezing Cardiac exam reveals regular heart sounds no gallops no murmurs Abdomen is soft nontender no organomegaly with normal bowel sounds Extremity exam reveals no edema no cyanosis or clubbing - Labs CBC & Chem 7: 01/20/20 04:00 01/20/20 04:00 Labs: Abnormal Lab Results - Last 24 Hours (Table) 01/19/20 01/19/20 01/19/20 Range/Units 05:06 17:09 19:58 MCHC (31.0-37.0) g/dL ABG pH (7.35-7.45) ABG pCO2 (35-45) mmHg ABG pO2 52 L* (83-108) mmHg ABG HCO3 (21-25) mmol/L ABG Total CO2 (19-24) mmol/L ABG O2 Saturation (94-97) % Potassium (3.5-5.1) mmol/L Carbon Dioxide (22-30) mmol/L BUN (7-17) mg/dL Glucose (74-99) mg/dL POC Glucose (mg/dL) 141 H 267 H (75-99) mg/dL Ferritin (10.0-291.0) ng/mL Creatine Kinase (30-135) U/L Total Protein (6.3-8.2) g/dL Albumin (3.5-5.0) g/dL 01/19/20 01/19/20 01/20/20 Range/Units 19:59 23:31 04:00 MCHC 30.9 L (31.0-37.0) g/dL ABG pH (7.35-7.45) ABG pCO2 (35-45) mmHg ABG pO2 (83-108) mmHg ABG HCO3 (21-25) mmol/L ABG Total CO2 (19-24) mmol/L ABG O2 Saturation (94-97) % Potassium (3.5-5.1) mmol/L Carbon Dioxide (22-30) mmol/L BUN (7-17) mg/dL Glucose (74-99) mg/dL POC Glucose (mg/dL) 278 H 153 H (75-99) mg/dL Ferritin (10.0-291.0) ng/mL Creatine Kinase (30-135) U/L Total Protein (6.3-8.2) g/dL Albumin (3.5-5.0) g/dL 01/20/20 01/20/20 01/20/20 Range/Units 04:00 04:04 04:49 MCHC (31.0-37.0) g/dL ABG pH 7.51 H (7.35-7.45) ABG pCO2 (35-45) mmHg ABG pO2 68 L (83-108) mmHg ABG HCO3 36 H (21-25) mmol/L ABG Total CO2 37 H (19-24) mmol/L ABG O2 Saturation (94-97) % Potassium 3.4 L (3.5-5.1) mmol/L Carbon Dioxide 37 H (22-30) mmol/L BUN 31 H (7-17) mg/dL Glucose 150 H (74-99) mg/dL POC Glucose (mg/dL) 149 H (75-99) mg/dL Ferritin 346.0 H (10.0-291.0) ng/mL Creatine Kinase <20 L (30-135) U/L Total Protein 5.5 L (6.3-8.2) g/dL Albumin 2.7 L (3.5-5.0) g/dL 01/20/20 01/20/20 01/20/20 Range/Units 08:46 11:34 11:54 MCHC (31.0-37.0) g/dL ABG pH (7.35-7.45) ABG pCO2 52 H (35-45) mmHg ABG pO2 50 L* (83-108) mmHg ABG HCO3 36 H (21-25) mmol/L ABG Total CO2 38 H (19-24) mmol/L ABG O2 Saturation 84.6 L (94-97) % Potassium (3.5-5.1) mmol/L Carbon Dioxide (22-30) mmol/L BUN (7-17) mg/dL Glucose (74-99) mg/dL POC Glucose (mg/dL) 131 H 182 H (75-99) mg/dL Ferritin (10.0-291.0) ng/mL Creatine Kinase (30-135) U/L Total Protein (6.3-8.2) g/dL Albumin (3.5-5.0) g/dL 01/20/20 Range/Units 15:49 MCHC (31.0-37.0) g/dL ABG pH (7.35-7.45) ABG pCO2 (35-45) mmHg ABG pO2 (83-108) mmHg ABG HCO3 (21-25) mmol/L ABG Total CO2 (19-24) mmol/L ABG O2 Saturation (94-97) % Potassium (3.5-5.1) mmol/L Carbon Dioxide (22-30) mmol/L BUN (7-17) mg/dL Glucose (74-99) mg/dL POC Glucose (mg/dL) 234 H (75-99) mg/dL Ferritin (10.0-291.0) ng/mL Creatine Kinase (30-135) U/L Total Protein (6.3-8.2) g/dL Albumin (3.5-5.0) g/dL Assessment and Plan Plan: #1 pneumonia likely related to COVID 19 viral pneumonitis, followed by pulmonary and infectious disease, condition has worsened over night patient is currently in ICU maintained on mechanical ventilation #2 severe hypernatremia, on admission corrected #3 mental status changes likely related to hypernatremia and metabolic encep halopathy related to infection #4 acute hypoxic respiratory failure related to pneumonia, requiring oxygen at 4 L nasal cannula at this time #5 underlying history of hypertension #6 underlying history of COPD #7 underlying history of insulin-dependent diabetes mellitus, insulin dose adjusted today Levemir increased to 35 units daily #8 underlying history of stroke with right sided paralysis #9 chronic dysphagia and aspiration requiring PEG tube feeding #10 underlying history of atrial fibrillation maintained on Xarelto #11 vaginal bleeding, at this time will monitor closely, will check daily CBC, and monitor for amount of bleeding. Once her current illness has subsided, will investigate further with pelvic ultrasound and RN CARE TRANSITION consult. #12 hyperkalemia, corrected At this time patient is into in the intensive care unit, no change in condition since yesterday She is intubated sedated maintained on mechanical ventilation Consultation for pulmonary and infectious disease requested in the emergency room and are following patient's No significant change in condition over the last few days awaiting possible weaning trials in the next 1-2 days Prognosis is guarded due to multiple underlying comorbid conditions
[2020-01-20 20:00] LABS: Glucose,Whole Blood 236 mg/dL (75-99)
[2020-01-20] MEDS: INSULIN DETEMIR (LEVEMIR) 100 UNIT/ML SYR SQ SCH (20:27)
[2020-01-20] MEDS: FERROUS SULFATE ORAL ELIXIR 300 MG/5 ML CUP PEG/G-TUBE SCH (20:33)
--- NOTE | 2020-01-20 23:27 | PN ---
PROGRESS NOTE DATE OF SERVICE: 01/20/2020 REASON FOR FOLLOWUP: Pneumonia. INTERVAL HISTORY: The patient is currently afebrile. The patient is hemodynamically stable, not on any pressor support. FiO2 is currently 40%. No significant purulent secretion in the ET or any diarrhea reported. Patient remains sedated on the vent. PHYSICAL EXAMINATION: Blood pressure 130/62 with a pulse of 68, temperature 98.3. She is 98% on 40% FiO2. General description is an elderly female lying in bed in no distress. RESPIRATORY SYSTEM: Unlabored breathing with decreased breath sounds at the base. No wheeze. HEART: S1, S2. Regular rate and rhythm. ABDOMEN: Soft. No tenderness. LABS: Hemoglobin is 12.2, white count 6.5. BUN of 31, creatinine 0.57. DIAGNOSTIC IMPRESSION AND PLAN: Patient with acute respiratory failure which is multifactorial in this patient with a component of pneumonia. Sputum has been Klebsiella. Patient is covered with Rocephin; to continue and monitor clinical course closely. MMODL / IJN: [id number] /
[2020-01-20 23:52] LABS: Glucose,Whole Blood 178 mg/dL (75-99)
[2020-01-21 04:39] LABS: Glucose,Whole Blood 153 mg/dL (75-99)
[2020-01-21] MEDS: INSULIN ASPART (NovoLOG) 100 UNIT/ML VIAL SQ SCH ×5 (04:40→20:57)
[2020-01-21 05:47] LABS: ABG Base Excess 12.1 mmol/L; ABG HCO3 36 mmol/L (21-25); ABG Oxygen Saturation 88.2 % (94-97); ABG PCO2 53 mmHg (35-45); ABG PH 7.45 (7.35-7.45); ABG TCO2 38 mmol/L (19-24); Allen Test Performed? Yes
[2020-01-21 06:00] LABS: ABG PO2 55 mmHg (83-108)
[2020-01-21 06:14] LABS: Basophils % (A) 0 %; Eosinophils # (A) 0.2 k/uL (0-0.7); Eosinophils % (A) 2 %; HCT 44.3 % (34.0-46.0); HGB 14.1 gm/dL (11.4-16.0); Hypochromasia Slight; Lymphocytes # (A) 1.7 k/uL (1.0-4.8); Lymphocytes % (A) 23 %; MCH 31.2 pg (25.0-35.0); MCHC 31.9 g/dL (31.0-37.0); MCV 97.9 fL (80.0-100.0); Mean Platelet Volume 11.5; Monocytes # (A) 0.5 k/uL (0-1.0); Monocytes % (A) 7 %; Neutrophils # (A) 4.8 k/uL (1.3-7.7); Neutrophils % (A) 64 %; Platelet Count 157 k/uL (150-450); RBC 4.53 m/uL (3.80-5.40); RDW 14.5 % (11.5-15.5); WBC 7.5 k/uL (3.8-10.6)
[2020-01-21] MEDS: NOREPINEPHRINE 4 MG in SODIUM CHLORIDE 0.9% 250 ML IV SCH ×2 (06:20→22:47)
--- NOTE | 2020-01-21 06:30 | XR ---
EXAMINATION TYPE: XR chest 1V portable DATE OF EXAM: 01/21/2020 HISTORY: Tube placement. REFERENCE: Previous study dated 01/20/2020. FINDINGS: The patient is ET tube remains in place, unchanged in position. There continues be bibasilar airspace disease, worse on the left than right. There are bilateral effu sions. Heart size is within normal limits. IMPRESSION: 1. CONTINUING BIBASILAR AIRSPACE DISEASE, WORSE ON THE LEFT THAN RIGHT. 2. SMALL BILATERAL EFFUSIONS.
[2020-01-21 07:25] LABS: ALT 22 U/L (4-34); AST 22 U/L (14-36); African American GFR (CKD) >90 (>60 ml/min/1.73 sqM); Alkaline Phosphatase 79 U/L (38-126); Anion Gap 5 mmol/L; Blood Urea Nitrogen 34 mg/dL (7-17); C Reactive Protein 11.4 mg/L (<10.0); Calcium 10.3 mg/dL (8.4-10.2); Carbon Dioxide 34 mmol/L (22-30); Chloride 100 mmol/L (98-107); Creatine Kinase <20 U/L (30-135); Glucose 162 mg/dL (74-99); LDH 528 U/L (313-618); Non-African American GFR(CKD) >90 (>60 ml/min/1.73 sqM); Sodium 139 mmol/L (137-145); Total Bilirubin 0.5 mg/dL (0.2-1.3)
[2020-01-21] MEDS: ALBUTEROL HFA INHALER INHALATION SCH ×4 (07:55→19:49)
[2020-01-21 08:01] LABS: Glucose,Whole Blood 174 mg/dL (75-99)
[2020-01-21] MEDS: ENOXAPARIN 40 MG/0.4 ML SYRINGE SQ SCH ×2 (08:27→21:00)
[2020-01-21] MEDS: CHOLECALCIFEROL 1,000 UNIT TAB PEG/G-TUBE SCH (08:28)
[2020-01-21] MEDS: amLODIPine 10 MG TAB PO SCH (08:28)
[2020-01-21] MEDS: FUROSEMIDE 10 MG/ML 4 ML VIAL IV SCH ×2 (08:28→21:00)
[2020-01-21] MEDS: CHLORHEXIDINE GLUCONATE 15 ML CUP MUCOUS MEM SCH ×2 (08:28→21:00)
[2020-01-21] MEDS: PANTOPRAZOLE 40 MG/10 ML VIAL IV SCH (08:28)
[2020-01-21] MEDS: LISINOPRIL 2.5 MG TAB PEG/G-TUBE SCH (08:28)
[2020-01-21] MEDS: methylPREDNISolone SOD SUCCI 40 MG/ML 1 ML VIAL IV SCH (08:29)
[2020-01-21] MEDS: ZINC SULFATE 220 MG CAP PO SCH (08:51)
[2020-01-21 11:34] LABS: Glucose,Whole Blood 173 mg/dL (75-99)
--- NOTE | 2020-01-21 13:22 | P.PN ---
Subjective Progress Note Date: 01/21/20 Principal diagnosis: Acute hypoxic respiratory failure on ventilator COVID 19 pneumonia Aspiration pneumonia likely mixed bacterial and/or or gram-negative related Chronic right-sided weakness dysphagia and aphasia status post PEG tube COPD Insulin-dependent diabetes mellitus uncontrolled Hypertension hypertensive cardiovascular disease Chronic atrial fibrillation on anticoagulation off of his Xeralto, has been initiated on Lovenox twice a day 01/21/2020, patient seen eval examined during the rounds labs reviewed medications reviewed, patient has excessive amount of respiratory secretions, which are 10 and clear, patient developed respiratory distress and desaturation, patient required frequent suctioning remains on 25 mics of propofol, remains on assist control mode rate of 14 tidal volume of 500 PEEP is 8, 40% oxygen, ABG from this morning noted there were done at the time and she was coughing and saturation were low, sats are now has improved to 95%, hemodynamic send data has been reviewed, patient can be weaned but cannot be safely extubated due to prior multiple comorbidities including 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 multiple strokes in the past we'll consult for tracheostomy sometime to be done early next week I have left messages for family awaiting for their advice in the meantime continue antibiotics labs reviewed medications reviewed radiographic studies reviewed critical care time 35 minutes 01/20/2020, patient seen eval examined during the rounds overall respiratory status remains stable patient remains on assist control rate of 16 breathing 16, tidal Volume is 500 PEEP is 8, patient was on CPAP pressure support most of the day yesterday propofol was off now has been resumed, oxygen saturation 94-95%, arterial blood gases reviewed this is stable of the respiratory alkalosis we'll decrease her ventilation, will put patient on CPAP of 5 and pressure support of 5 and obtain a blood gas will stop propofol as well continue diuresis, sputum came back for positive for Klebsiella likely healthcare associated pneumonia patient is on a IV Rocephin dose has been adjusted, Klebsiella appears to be sensitive to Rocephin, patient has adequate urine output to feed tolerated well, no fever is present, labs fairly within normal limit electrolytes including protection initially will be replaced critical care time spent 35 minutes 01/19/2020, patient seen eval examined during the rounds labs reviewed medications reviewed care plan discussed with the staff at length patient has been on 40% oxygen and PEEP of 8 saturation is 94%, she is off of propofol remains nonverbal and noncommunicative like baseline due to prior CVA and hemiparesis, cannot do maximal respiratory pressure, also some on the weaning parameters cannot be achieved due to stroke in the past, hemodynamic status stable heart rate is stable blood pressure is stable off of propofol for last 1 hour, labs reviewed white cell count is 6900, arterial blood gas from this morning reviewed after that patient receive Lasix 40 mg IV put out over 350 mL of urine right away, per day she missed 3.41 potassium replacement protocol, chest x-ray from earlier this morning reviewed basal small pleural effusion along with atelectasis seen with interstitial edema overall remains essentially unchanged 01/18/2020, patient seen and evaluated, remains on ventilator stable oxygenation is slightly low patient however remains on stable vent settings FiO2 50% tidal volume of 458 of PEEP, assist control mode breathing about 20-24, oxygen saturation is 92%, patient remains on propofol 25 mics gently sedated, hemodynamic status stable heart and blood pressure is stable off of vasopressors, patient is tolerating well. She is slightly low this morning given extra Lasix 40 mg IV now we'll keep the patient on negative balance, peak airway pressure 30 tolerating vent adjustment well him to lower down the FiO2 to 40% and start his spontaneous breathing trial of CPAP of 5 and pressure support of 10 as tolerated an hour to 45 minutes during which will DC the propofol, labs reviewed, patient is growing gram-negative rods in the sputum, she is adequately covered with Zosyn, chest x-ray reviewed stable lines and tubes, interstitial edema bilaterally small pleural effusion right lower lobe stable infiltrate, critical care time spent 35 minutes 01/17/2020, patient seen eval reexamined during the rounds labs reviewed medications reviewed radiographic studies reviewed as well, patient is still on propofol 25 mics she gets on comfortable if lowers it down we'll keep it for now, ventilator setting is stable, pO2 has improved can go down oxygen to 50 and subsequently to 40%, will keep PEEP 8, peak airway pressure on around 30, suggestive of fairly good compliance, we'll continue to diurese patient after 40 mg of extra Lasix yesterday without 1.5 L of urine repeat that again, to feed being tolerated very well no significant diarrhea has been noted respiratory secretions are minimal, critical care time 35 minutes 01/16/2020, patient seen eval examined during the rounds labs reviewed medications reviewed care plan discussed with the primary service, patient FiO2 is slightly up to percent otherwise PEEP remains 8, tidal volume is 500 with a rate of 16 ventilation appears to be fairly adequate oxygen however remains low review of the data revealed that patient is slightly even and positive in last 48 hours will benefit from some diuresis and given extra Lasix today continue to feed, continue sedation currently on propofol 25 mics, x-ray is not done today, arterial blood gas reviewed labs reviewed. Current care time spent 35 minutes 01/15/2020, patient seen eval examined during the rounds labs reviewed medications reviewed care plan discussed with the staff at length, patient remains on full ventilator support with suctioning and movement she desaturates however similar episodethis morning at the time of chest x-ray when she was repositioned suction and transient desaturation happens arterial blood gas was done at the same time however after that on 25 mics of propofol she has been stable saturation have been 98-99% plan is to come down the oxygen to 40% will keep monitor PPEP 10 and if oxygen remains stable on 40% will go down to 8 by and of the day, hemodynamic status stable blood pressure is stable and did not require IV hydralazine, heart rate is improve into high 50s and low 60s, patient is off of clonidine and Lopressor now remains off of vasopressors, tolerating the feed well, urine output is good arterial blood gases reviewed adequate ventilation chest x-ray reviewed overall essentially stable with small bilateral pleural effusion, overall plan is to come down to oxygen of 40% and PEEP of 5 and next 24-48 hours then will initiate spontaneous breathing trials keep ins and outs even are negative side continue current dose of Solu-Medrol and continue antibiotics critical care time 35 minutes 01/14/2020, patient seen eval reexamined during the rounds labs reviewed medications reviewed, chest x-ray reviewed as well, patient remains sedated with propofol drip 25 mics, she is bradycardic heart rate is 40-45 with slightly elevated blood pressure 160-170 breathing with vent rate was initially 20 have been reduced to 16, tidal volume is 450 keep is 15 has been lowered down to 10 saturation is 95-96% chest x-ray reviewed right lower lobe infiltrate and small effusions seen overall lung parenchyma and infiltrate appears stable and continued to improve, patient is tolerating every feed very well labs reviewed C BC within normal limits chemistry revealed ABG combination of metabolic and respiratory alkalosis ventilator has been adjusted Lasix have been lowered down to once a day some contribution from his steroids presents which will be reduced to 40 daily, patient will be observed how she does with lower PEEP, we will start hydralazine IV for blood pressure control, continue to hold Lopressor and also hold clonidine we will get cardiovascular services opinion consultation, patient has been tolerating tube feed very well respiratory secretions are minimal adequate urine output has been present 01/13/2020, patient seen eval reexamined during the rounds labs reviewed medications reviewed radiographic studies reviewed as well patient FiO2 has been brought down to 60% she is on 15 of PEEP, her oxygen saturation 97% she is off of vasopressors, she is on 30 mics of propofol somewhat bradycardic will decrease of propofol to 20 mics, we'll continue to bring down the oxygen to 40% as tolerated in during next 24 hours, then will come on down and PEEP. Respiratory secretions are minimal to feed is tolerating well mental status not much change, developed bradycardia her beta blockers are being held, her chest x-ray showing small pleural effusion bilaterally and basal atelectasis and consolidation, tubes are stable, she remains on Solu-Medrol 40 every 12 hourly and Lovenox also 40 q 12, it appears that Solu-Medrol has been helping in improving and able to come down on oxygen, peak airway pressure 30, urine output has been adequate patient has some component of respiratory and metabolic alkalo sis, we will lower down the Lasix to 20 mg daily also will decrease the tidal volume to 450, care time spent 35 minuteto 01/12/2020, patient seen and evaluated today care plan discussed with the nurse at length radiographic studies and lab studies reviewed, patient remains on assist control mode rate of 20 breathing about 24 26th of patient remains at PEEP of 10 FiO2 of 80% oxygen saturation are 90-94% within increase the PEEP to 15 as blood pressure is stable and titrated oxygen down to 70-60% next 24 hours chest x-ray reviewed continued to show same pattern but overall condition appears to improve to feed as tolerated very well, CBC is normal arterial blood gases history of hypercapnic hypoxic respiratory failure, bicarb is slightly going up the patient seems to be tolerating steroid well however sugars are higher side remains on insulin 01/11/2020, patient seen eval examined during the rounds labs reviewed medications reviewed radiographic studies reviewed as well patient remains sedated with 40 mics of propofol, she'll decrease it to 30 mics off of levo fed drip, patient did start some levo fed last night but now off, noted that FiO2 has been escalated to 100% and PEEP is down to 5, we'll increase PEEP back to 10 and titrated oxygen down as tolerated to bring it down to goal of 70% in next 24 hours slowly will decrease his sedation as well, 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, left-sided slight worsening has been noted with small left- sided pleural effusion likely fluid overload some of the fluid is present on the right side as well patient medications have been reviewed, patient is on Norvasc 10 mg along with Catapres and Ogestrel, patient has been started on IV steroids given hypoxia And a Difficult Reports from [place] That Steroids Have Been Hel pful in Improving Oxygenation but at the Cost of Increasing Shedding Time However, Eisenmenger's Slightly Positive Today, Patient Has Received Lasix, ABG Reviewed pH Is 7.46 PCO2 Is 51 PO2 Is 58 That Is on PEEP of 5 and 100% Oxygen, Her LDH Is up to 926 Ferritin C-Reactive Protein and IL6 Levels Are Pending 01/10/2020, patient seen and evaluated examined during the rounds labs reviewed medications reviewed care plan discussed with RN, patient FiO2 has been down to 60% and peak airway pressures are stable, patient remains on assist control mode rate of 20 breathing about 25-28 oxygen saturation 93% she is 10, spontaneous tidal volume on about 400 500 range patient has been getting his spontaneous breathing trial and she is been sedated with propofol drip very small dose of levofed is still going to come patient is on broad-spectrum antibiotics to feed is going on patient is on half normal saline as well chest x-ray shows diffuse infiltrate stable lines 01/08/2020, patient seen and evaluated examined in ICU patient remains on current ventilator with full ventilatory response be clear pressure slightly better than yesterday ranging from 30-32, patient is down to 70% now PEEP of 10 assist control is 20 breathing about 25-26 tidal volume is 400 this morning ABG reviewed ventilation is adequate slight hypoxia was noted but however sats at that time when the gas were done were 91-92% since that time patient has received 20 of Lasix and put out about 550 mL of urine and saturation is improved to 96%, patient is afebrile, patient would need a PICC line tomorrow, remains on propofol dose has been escalated today, tolerating to feed well, sugars are in low 200 range, LDH is 817 C-reactive protein is 25.2 on the they are showing downward trend her plan discussed with the staff at length will increase her Lasix to 20 mg daily will keep patient on 70% and PEEP of 10 and today attempt to titrate oxygen down again tomorrow chest x-ray showed some improved aviation compared to prior study stable ET tube, and seems to tolerating Lasix well any significant compromise in hemodynamic status critical care time spent 35 minutes 01/07/2020, patient does live increase respiratory distress earlier this morning oxygen remains very poor saturation dropped down into 70s to 80s percent, pO2 was only 46 patient was intubated and placed in ICU where patient was seen eval reexamined, patient remains on levo fed drip on 5 mics, her hemodynamic is slightly better systolic blood pressure ranging from 100 210, patient is on propofol 20, vent setting include assist control of 20 tidal volume of 400, PEEP of 10, FiO2 have been lowered down to 90%, ABG and laboratory data data reviewed chest x-ray reviewed mild bilateral interstitial infiltrate consistent with viral pneumonia, patient is being started on Lovenox twice a day continued on tube feed will increase gentle hydration, blood glucose is running slightly high will increase the Levemir, critical care time spent 45 minutes 01/06/2020, patient seen and evaluated examined remains on nonrebreather mask still have problems associated with shortness of breath, care plan discussed with RN will continue current plan of care patient can be started on as needed breathing treatments will continue to gently diurese 01/05/2020, patient seen and evaluated examined remains on nonrebreather mask, nonverbal and noncommunicative essentially no significant change in neurological condition, she remained afebrile with stable hemodynamics her oxygen saturations improved to 96% on repeat nonrebreather mask 01/04/2020, patient laying on the bed on 100% nonrebreather mask and breathing is slightly short of breath, patient is on bronchodilator along with antibiotics, has been on Lasix as well, patient remains on Zosyn, labs reviewed white cell count is normal, labs reviewed, glucose is 342, BUN/creatinine is 25 and 0.7, stool for C. difficile is negative 01/02/2020, patient seen eval examined during the rounds patient has a rapid response this morning with the shortness of breath she however responded well with Lasix, Sands's catheter has been placed, shortness of breath have improved though, on 4 L saturation is 92% low-grade temperature of 99 is present, her chest x-ray assistive of the left lower lobe pneumonia and right perihilar infiltrate prominent lung markings likely fluid overload, Objective - Vital Signs Vital signs: Vital Signs Temp 98.1 F 01/21/20 08:00 Pulse 61 01/21/20 08:00 Resp 15 01/21/20 10:00 BP 133/80 01/21/20 10:00 Pulse Ox 94 L 01/21/20 10:00 Intake & Output 01/20/20 01/21/20 01/21/20 18:59 06:59 18:59 Intake Total 910.000 272 78 Output Total 1530 1145 230 Balance -620.000 -873 -152 Weight 79.3 kg 79.3 kg Intake: IV 120 120 40 0.9% NS 120 120 40 Intake, IV Titration 100.000 Amount Propofol 1,000 mg In 100.000 Empty Bag 1 bag @ Titrate IV .Q0M [facility] Rx#: [id number] Tube Feeding 570 152 38 Other 120 Output: Urine 1530 1145 230 Other: Voiding Method Indwelling Catheter Indwelling Catheter Indwelling Catheter - Exam - Neck Neck: no lymphadenopathy, no stridor - Respiratory Scattered rhonchi throughout, full ventilator support - Cardiovascular Regular rhythm and rate. S1 and S2 present, negative for S3, gallop or murmur. Trace edema to her bilateral lower extremities. - Gastrointestinal Abdomen soft and nondistended. - Integumentary Skin is warm and dry. No clubbing or cyanosis is present. Integumentary: no rash - Neurologic Recently off of propofol drip - Labs CBC & Chem 7: 01/21/20 05:24 01/21/20 05:24 Labs: Abnormal Lab Results - Last 24 Hours (Table) 01/20/20 01/20/20 01/20/20 Range/Units 15:49 19:59 23:51 ABG pCO2 (35-45) mmHg ABG pO2 (83-108) mmHg ABG HCO3 (21-25) mmol/L ABG Total CO2 (19-24) mmol/L ABG O2 Saturation (94-97) % Carbon Dioxide (22-30) mmol/L BUN (7-17) mg/dL Creatinine (0.52-1.04) mg/dL Glucose (74-99) mg/dL POC Glucose (mg/dL) 234 H 236 H 178 H (75-99) mg/dL Calcium (8.4-10.2) mg/dL Creatine Kinase (30-135) U/L C-Reactive Protein (<10.0) mg/L Total Protein (6.3-8.2) g/dL Albumin (3.5-5.0) g/dL 01/21/20 01/21/20 01/21/20 Range/Units 04:37 05:24 05:57 ABG pCO2 53 H (35-45) mmHg ABG pO2 55 L* (83-108) mmHg ABG HCO3 36 H (21-25) mmol/L ABG Total CO2 38 H (19-24) mmol/L ABG O2 Saturation 88.2 L (94-97) % Carbon Dioxide 34 H (22-30) mmol/L BUN 34 H (7-17) mg/dL Creatinine 0.48 L (0.52-1.04) mg/dL Glucose 162 H (74-99) mg/dL POC Glucose (mg/dL) 153 H (75-99) mg/dL Calcium 10.3 H (8.4-10.2) mg/dL Creatine Kinase <20 L (30-135) U/L C-Reactive Protein 11.4 H (<10.0) mg/L Total Protein 6.0 L (6.3-8.2) g/dL Albumin 3.0 L (3.5-5.0) g/dL 01/21/20 01/21/20 Range/Units 08:00 11:33 ABG pCO2 (35-45) mmHg ABG pO2 (83-108) mmHg ABG HCO3 (21-25) mmol/L ABG Total CO2 (19-24) mmol/L ABG O2 Saturation (94-97) % Carbon Dioxide (22-30) mmol/L BUN (7-17) mg/dL Creatinine (0.52-1.04) mg/dL Glucose (74-99) mg/dL POC Glucose (mg/dL) 174 H 173 H (75-99) mg/dL Calcium (8.4-10.2) mg/dL Creatine Kinase (30-135) U/L C-Reactive Protein (<10.0) mg/L Total Protein (6.3-8.2) g/dL Albumin (3.5-5.0) g/dL Assessment and Plan Assessment: Acute hypoxic respiratory failure on ventilator COVID 19 pneumonia with some improvement in oxygenation Gram-negative Klebsiella pneumonia Ventilator adjustment now patient is on 40 % oxygen but will be titrated oxygen down as tolerated, her peak airway pressures are stable high 20s , will lowered PEEP to 5, will continue weaning trial as tolerated sedation holiday along with CPAP and pressure support control trial as tolerated Sinus bradycardia with hypertension, monitor off of Lopressor and clonidine, continue hydralazine IV as needed consult cardiovascular disease and associated patient Norvasc dose has been escalated patient is manifesting adequate hemodynamics heart rate is in 60s and blood pressure is adequate Continue I's and Os negative side monitor urine output, increase Lasix to 40 mg IV every 12 hours Patient is getting trial of steroids seems to be tolerating well thus hyperglycemia is some improvement in chest x-ray and oxygenation, there is some anecdotal reports coming from [place] it helps oxygenation however with the cost of prolonged shedding of viral particles we'll continue it to once daily, after increasing the Lantus to 40 Sugars are better under control Bilateral small pleural effusion multifactorial process Chronic right-sided weakness dysphagia and aphasia status post PEG tube COPD Insulin-dependent diabetes mellitus uncontrolled Hypertension hypertensive cardiovascular disease, will decrease Norvasc to 5 mg Chronic atrial fibrillation on anticoagulation Lovenox Critical care time 35 minutes Plan: Patient at risk of respiratory failure again in the event of extubation, in order to extubate safely will need a tracheostomy also patient has excessive amount of respiratory secretions which require frequent suctioning, to begin with patient has multiple comorbidities including marisol-plegia a aphasia and strokes in the past, message has been left for family consult has been initiated with surgical service for tracheostomy Titrated oxygen down as as tolerated with slow lowering of PEEP, will be lowered subsequently as noted above Continue sedation holiday in his spontaneous breathing trials Will discuss with the family about further plan of care Anticoagulation. Lovenox twice a day Continue Norvasc other hemodynamic parameters as noted above Lowering of IV steroids for adjustment of insulin as needed Observe off of levo fed Gentle diuresis will keep her negative for another 24 hours Continue tube feed Ventilator adjustment Continue to check inflammatory labs for covid19 as needed Monitor sodium levels closely Continue respiratory and contact isolation Time with Patient: Greater than 30
[2020-01-21] MEDS: PROPOFOL 1,000 MG in EMPTY BAG 1 BAG IV SCH (16:09)
--- NOTE | 2020-01-21 16:31 | P.PN ---
Subjective Progress Note Date: 01/21/20 Soledad Enriquez, is an 79-year-old female who [facility] at this time will was noticed to have worsening mental status and persistent cough, patient started having elevated temperature up to 101 at that point she was sent to [facility] emergency room she had testing for influenza A and B which were negative she also had an instant test for Covid 19 which was positive she was admitted to telemetry floor she was started on IV Zithromax pulmonary and infectious disease consultation were requested. Patient also had evidence of dehydration with hypernatremia elevated sodium level at 151. Patient has a known history of multiple medical problems including history of stroke with right sided paralysis, history of aspiration patient has a PEG tube for feeding, history of insulin-dependent diabetes mellitus, history of hypertension, history of hyperlipidemia, and history of paroxysmal atrial fibrillation. On presentation patient had a temperature of 101 pulse of 82 respiration 18 blood pressure 119/63 and pulse ox of 91% on 4 L nasal cannula. White blood count was 4.8 chest x-ray revealed evidence of left basilar opacity. On 12/30/2019 patient was seen and examined on the medical floor she is somnolent responsive in no apparent distress there is low-grade fever temperature is 100.8 there is no chills no headache or dizziness no chest pain no shortness of breath no cough no nausea or vomiting no abdominal pain no diarrhea and no burning was urination. Nurse noticed some vaginal bleeding, hemoglobin is stable at 15. Pulse ox is 96% on 4 L nasal cannula , On 12/31/2019 patient was seen and examined on the medical floor she is somnolent responsive in no apparent distress, her fever is subsiding temperatures this morning 99 pulse ox is 92% on 4 L nasal cannula, patient is denying any complaints at this time however, she does not seem to be listening much to the questions, and she goes back to sleep fast. White blood count today is normal at 4.1 hemoglobin is 15.2 potassium is elevated at 5.8 On 01/01/2020 patient was seen and examined on the medical floor she is more alert and responsive today there is no fever or chills no headache or dizziness no chest pain no shortness of breath no cough no nausea or vomiting no abdominal pain no diarrhea and no urinary symptoms, she is receiving feeding through PEG tube at night, glucose level is elevated again, will increase Lantus dose to 25 units at bedtime, and continue was inserted into sliding scale. Patient is receiving oxygen via nasal cannula at 4 L her pulse ox is 92% patient does not s eem to be in any distress her temperature heart rates respiration rate and blood pressure are in normal range white blood count is 3.8 potassium 4.8 On 01/02/2020 patient was seen and examined on the medical floor she is alert and responsive in no apparent distress. This morning patient had an episode of shortness of breath with decreased O2 sat duration A team was called patient received IV Lasix Sands catheter was inserted chest x-ray was done. Currently patient is doing better pulse ox is 92% on 4 L nasal cannula. On 01/03/2020 patient was seen and examined on the medical floor she is alert responsive in no apparent distress, her pulse ox is 92% on 6 L nasal cannula she is afebrile blood pressure is 123/87 chest x-ray done yesterday reveals left lower lobe infiltrate and right perihilar infiltrates. Without significant improvement from prior x-rays. On 01/04/2020 patient was seen and examined on the medical floor she is more alert and responsive today he denies any pain or discomfort, her pulse ox was lower today and she was switched to a nonrebreather mask On 01/05/2020 patient was seen and examined on the medical floor, she is alert and responsive at this time, she is tolerating tube feeding well, she denied any pain or discomfort. On 01/06/2020 patient was seen and examined on the medical floor, she is alert responsive in no apparent distress she is answering a few questions with yes or no or nodding her head she is tolerating tube feeding well she is denying any pain or discomfort at this time, her temperature is 98.1 blood pressure 135/75 pulse ox 90% on nonrebreather mask. On 01/07/2020 Patient was seen and examined in the ICU. Around 7:00 am this morning patient was on the floor she was having worsening shortness of breath and using accessory muscles she was on nonrebreather mask and her O2 sat duration was 88% Dr. Caba boatswain's mate was contacted patient was transferred to ICU she was intubated sedated and started on mechanical ventilation, she was also started on levophed for blood pressure support. On 01/08/2020 Patient was seen and examined in the ICU. She is intubated sedated maintained on mechanical ventilation, she is still on a small dose of Levophed. She is receiving tube feeding via PEG tube. Her ABG reveals a pH of 7.4 to pCO2 45 by mouth to 59 FiO2 is 70% On 01/09/2020 patient was seen and examined in the ICU she remains intubated sedated maintained on mechanical ventilation, she remains on a small dose of levophed for pressure support. ABG reveals a pH of 7.4 pCO2 47 PO2 77 with FiO2 of 70% her temperature is 90.8 pulse 69 respiration 27 blood pressure 112/70 On 01/10/2020 patient was seen and examined in the ICU she is intubated sedated maintained on mechanical ventilation, temperature is 97.9 pulse 62 respiration 20 blood pressure 121/73 ABG reveals pH of 7.39 pCO2 52 by mouth to 59 FiO2 is 60% no significant change in condition since yesterday patient is receiving tube feeding. She was not seen by critical care yesterday due to personal reasons per nurse. At this time will change consult for pulmonary and critical care to Dr. Perez. On 01/11/2020 Patient was seen and examined in the ICU she is intubated, sedated, maintained on mechanical ventilation. there is no fever or chills. ABs reveals PH 7.46 PCO2 51 PO2 58 FIO@ 100 % On 01/12/2020 patient was seen and examined in the ICU she is intubated sedated maintained on mechanical ventilation she is not on any pressure support there is no fever or chills she is receiving tube feeding. On 01/13/2020 patient was seen and examined in the ICU she is intubated sedated maintained on mechanical ventilation, she is maintained on 2 feeding glucose is elevated, dose of Levemir will be increased to 35 units daily, continue with sliding scale. ABG reveals pH 7.5 one pCO2 46 by mouth to 90 FiO2 of 60% On 01/14/2020 patient was seen and examined in the ICU she is intubated sedated maintained on mechanical ventilation she is also maintained on PEG tube feeding she had episodes of bradycardia cardiology were consulted and beta herminio were discontinued and patient was started on Norvasc patient also is having some minimal elevation in her liver enzymes pravastatin was discontinued. Otherwise no significant change in her condition patient remains on mechanical ventilation no weaning trials are scheduled for today. On 01/15/2020 patient was seen and examined in the ICU she is intubated sedated maintained on mechanical ventilation she is receiving PEG tube feeding. Case was discussed with Dr. Kamara boatswain's mate. Patient is stable and is improving she is alert when her sedation is decreased however her O2 saturation drops with sedation holidays. There is no fever or chills. Temperature is 97.7 pulse 60 respirations 17 blood pressure 143/74 ABG reveals a pH of 7.46 pCO2 52 by mouth to 52 FiO2 at this time is 40% On 01/16/2020 patient was seen and examined in the ICU she is intubated sedated maintained on mechanical ventilation, FiO2 and PEEP are being decreased gradually arterial blood gases reveal a pH of 7.46 pCO2 51 CO2 54 FiO2 of 40% patient is febrile temperature is 98.1 blood pressure 130/76 she is not on any pressure support she is receiving PEG tube feeding. On 01/17/2020 patient was seen and examined in the ICU she is intubated sedated maintained on mechanical ventilation, vital exam reveals a temperature of 99.2 pulse 76 respiration 16 blood pressure 117/57 white blood count is 7.4 hemoglobin 13.9 platelets count 116 BUN is 30 creatinine 0.47 Arterial blood gas reveals a pH of 7.48 pCO2 49 by mouth to 90 on FiO2 of 60% On 01/18/2020 patient was seen and examined in the ICU she is intubated sedated maintained on mechanical ventilation, she had one hour sedation holiday this morning, patient was able to respond, she started having some cough and tachypnea and she was started back on sedation. Vital exam reveals a temperature of 98.6 pulse 82 respiration 20 blood pressure 118/61 white blood count is 6.5 hemoglobin 12.3 arterial blood gas revealed pH 7.42 pCO2 59 CO2 59 FiO2 50% On 01/19/2020 patient was seen and examined in the ICU she is intubated sedated maintained on mechanical ventilation she is receiving sedation holidays and is followed closely by pulmonary critical care and infectious disease patient is improving gradually On 01/20/2020 patient was seen and examined in the ICU she remains intubated and sedated she is receiving sedation holidays and is tolerating wel there is no fever or chills , she is maintained on IV antibiotics her ABG reveals a pH of 7.5 one pCO2 44 pO2 64 FiO2 is 40% she is improving gradually On 01/21/2020 patient was seen and examined in the ICU case was discussed in details with Dr. Kamara patient has not tolerated decreasing ventilation on multip le attempts and may need a tracheostomy placement. Temperature is 98.7 pulse 70 respirations 13 blood pressure 147/80 blood gases reveals a pH of 7.45 pCO2 53 by mouth to 55 on FiO2 of 40% Objective - Vital Signs Vital signs: Vital Signs Temp 98.7 F 01/21/20 12:00 Pulse 71 01/21/20 14:00 Resp 13 01/21/20 14:00 BP 119/74 01/21/20 14:00 Pulse Ox 95 01/21/20 13:00 Intake & Output 01/20/20 01/21/20 01/21/20 18:59 06:59 18:59 Intake Total 910.000 372 338 Output Total 1530 1145 655 Balance -620.000 -773 -317 Weight 79.3 kg 79.3 kg Intake: IV 120 120 80 0.9% NS 120 120 80 Intake, IV Titration 100.000 100 Amount Propofol 1,000 mg In 100.000 100 Empty Bag 1 bag @ Titrate IV .Q0M [facility] Rx#: [id number] Tube Feeding 570 152 228 Other 120 30 Output: Urine 1530 1145 655 Other: Voiding Method Indwelling Catheter Indwelling Catheter Indwelling Catheter - Exam In general patient is intubated sedated maintained on mechanical ventilation HEENT head normocephalic and atraumatic Neck is supple no JVD no goiter no lymphadenopathy Chest exam reveals a few scattered crackles no wheezing Cardiac exam reveals regular heart sounds no gallops no murmurs Abdomen is soft nontender no organomegaly with normal bowel sounds Extremity exam reveals no edema no cyanosis or clubbing - Labs CBC & Chem 7: 01/21/20 05:24 01/21/20 05:24 Labs: Abnormal Lab Results - Last 24 Hours (Table) 01/20/20 01/20/20 01/21/20 Range/Units 19:59 23:51 04:37 ABG pCO2 (35-45) mmHg ABG pO2 (83-108) mmHg ABG HCO3 (21-25) mmol/L ABG Total CO2 (19-24) mmol/L ABG O2 Saturation (94-97) % Carbon Dioxide (22-30) mmol/L BUN (7-17) mg/dL Creatinine (0.52-1.04) mg/dL Glucose (74-99) mg/dL POC Glucose (mg/dL) 236 H 178 H 153 H (75-99) mg/dL Calcium (8.4-10.2) mg/dL Creatine Kinase (30-135) U/L C-Reactive Protein (<10.0) mg/L Total Protein (6.3-8.2) g/dL Albumin (3.5-5.0) g/dL 01/21/20 01/21/20 01/21/20 Range/Units 05:24 05:57 08:00 ABG pCO2 53 H (35-45) mmHg ABG pO2 55 L* (83-108) mmHg ABG HCO3 36 H (21-25) mmol/L ABG Total CO2 38 H (19-24) mmol/L ABG O2 Saturation 88.2 L (94-97) % Carbon Dioxide 34 H (22-30) mmol/L BUN 34 H (7-17) mg/dL Creatinine 0.48 L (0.52-1.04) mg/dL Glucose 162 H (74-99) mg/dL POC Glucose (mg/dL) 174 H (75-99) mg/dL Calcium 10.3 H (8.4-10.2) mg/dL Creatine Kinase <20 L (30-135) U/L C-Reactive Protein 11.4 H (<10.0) mg/L Total Protein 6.0 L (6.3-8.2) g/dL Albumin 3.0 L (3.5-5.0) g/dL 01/21/20 Range/Units 11:33 ABG pCO2 (35-45) mmHg ABG pO2 (83-108) mmHg ABG HCO3 (21-25) mmol/L ABG Total CO2 (19-24) mmol/L ABG O2 Saturation (94-97) % Carbon Dioxide (22-30) mmol/L BUN (7-17) mg/dL Creatinine (0.52-1.04) mg/dL Glucose (74-99) mg/dL POC Glucose (mg/dL) 173 H (75-99) mg/dL Calcium (8.4-10.2) mg/dL Creatine Kinase (30-135) U/L C-Reactive Protein (<10.0) mg/L Total Protein (6.3-8.2) g/dL Albumin (3.5-5.0) g/dL Assessment and Plan Plan: #1 pneumonia likely related to COVID 19 viral pneumonitis, followed by pulmonary and infectious disease, condition has worsened over night patient is currently in ICU maintained on mechanical ventilation #2 severe hypernatremia, on admission corrected #3 mental status changes likely related to hypernatremia and metabolic encephalopathy related to infection #4 acute hypoxic respiratory failure related to pneumonia, requiring oxygen at 4 L nasal cannula at this time #5 underlying history of hypertension #6 underlying history of COPD #7 underlying history of insulin-dependent diabetes mellitus, insulin dose adjusted today Levemir increased to 35 units daily #8 underlying history of stroke with right sided paralysis #9 chronic dysphagia and aspiration requiring PEG tube feeding #10 underlying history of atrial fibrillation maintained on Xarelto #11 vaginal bleeding, at this time will monitor closely, will check daily CBC, and monitor for amount of bleeding. Once her current illness has subsided, will investigate further with pelvic ultrasound and [employer] consult. #12 hyperkalemia, corrected At this time patient is into in the intensive care unit, no change in condition since yesterday She is intubated sedated maintained on mechanical ventilation Consultation for pulmonary and infectious disease requested in the emergency room and are following patient's No significant change in condition over the last few days awaiting possible weaning trials in the next 1-2 days Prognosis is guarded due to multiple underlying comorbid conditions
[2020-01-21 16:32] LABS: Glucose,Whole Blood 288 mg/dL (75-99)
[2020-01-21 17:13] LABS: Ferritin 441.2 ng/mL (10.0-291.0)
--- NOTE | 2020-01-21 19:01 | PN ---
PROGRESS NOTE DATE OF SERVICE: 01/21/2020 REASON FOR FOLLOWUP: Pneumonia. INTERVAL HISTORY: The patient is currently afebrile. The patient remains to be intubated on the vent. Currently it is hard for her to be weaned off as the patient did have a lot of respiratory secretions per the RN. FiO2 is 40%. Tolerating her tube feeds and no diarrhea has been reported. PHYSICAL EXAMINATION: Blood pressure 119/74 with a pulse of 71, temperature 98.7. She is 95% on 40% FiO2. General description is an elderly female lying in bed in no distress. Respiratory system: Unlabored breathing, clear to auscultation anteriorly. Heart S1, S2. Regular rate and rhythm. Abdomen soft, no distention. LABS: Hemoglobin 14.1, white count 7.5. BUN of 34, creatinine 0.48. DIAGNOSTIC IMPRESSION AND PLAN: Patient with acute respiratory failure which is multifactorial. This patient did have a component of pneumonia, sputum has been Klebsiella. The patient is covered with Rocephin, to continue. Will monitor clinical course closely. MMODL / ROBELN: [id number] /
[2020-01-21 20:51] LABS: Glucose,Whole Blood 230 mg/dL (75-99)
[2020-01-21] MEDS: INSULIN DETEMIR (LEVEMIR) 100 UNIT/ML SYR SQ SCH (20:57)
[2020-01-21] MEDS: FERROUS SULFATE ORAL ELIXIR 300 MG/5 ML CUP PEG/G-TUBE SCH (20:57)
[2020-01-22 00:01] LABS: Glucose,Whole Blood 121 mg/dL (75-99)
[2020-01-22] MEDS: INSULIN ASPART (NovoLOG) 100 UNIT/ML VIAL SQ SCH ×6 (00:05→20:10)
[2020-01-22 03:55] LABS: Glucose,Whole Blood 115 mg/dL (75-99)
[2020-01-22 04:37] LABS: Basophils % (A) 0 %; Eosinophils # (A) 0.2 k/uL (0-0.7); Eosinophils % (A) 2 %; HGB 13.3 gm/dL (11.4-16.0); Lymphocytes # (A) 1.5 k/uL (1.0-4.8); Lymphocytes % (A) 21 %; MCHC 32.5 g/dL (31.0-37.0); MCV 95.3 fL (80.0-100.0); Mean Platelet Volume 11.8; Monocytes # (A) 0.5 k/uL (0-1.0); Monocytes % (A) 6 %; Neutrophils # (A) 5.1 k/uL (1.3-7.7); Neutrophils % (A) 69 %; Platelet Count 116 k/uL (150-450); RDW 14.4 % (11.5-15.5); WBC 7.4 k/uL (3.8-10.6)
[2020-01-22 04:54] LABS: ALT 19 U/L (4-34); AST 20 U/L (14-36); African American GFR (CKD) >90 (>60 ml/min/1.73 sqM); Alkaline Phosphatase 74 U/L (38-126); Anion Gap 2 mmol/L; Blood Urea Nitrogen 35 mg/dL (7-17); C Reactive Protein 12.6 mg/L (<10.0); Calcium 10.3 mg/dL (8.4-10.2); Carbon Dioxide 36 mmol/L (22-30); Chloride 100 mmol/L (98-107); Creatine Kinase <20 U/L (30-135); Glucose 123 mg/dL (74-99); LDH 588 U/L (313-618); Non-African American GFR(CKD) >90 (>60 ml/min/1.73 sqM); Potassium 3.5 mmol/L (3.5-5.1); Sodium 138 mmol/L (137-145); Total Bilirubin 0.4 mg/dL (0.2-1.3); Total Protein 5.8 g/dL (6.3-8.2)
[2020-01-22 04:57] LABS: Hypochromasia (M) Present; Target Cells Present
[2020-01-22 04:58] LABS: ABG Base Excess 13.6 mmol/L; ABG HCO3 38 mmol/L (21-25); ABG Oxygen Saturation 92.5 % (94-97); ABG PCO2 56 mmHg (35-45); ABG PH 7.44 (7.35-7.45); ABG PO2 65 mmHg (83-108); ABG TCO2 40 mmol/L (19-24); Allen Test Performed? Yes
[2020-01-22] MEDS ORDERED: Potassium Replacement Protocol 1 EACH MISC MISCELLANE PRN (05:01)
[2020-01-22] MEDS: POTASSIUM BICARBONATE/CIT AC 20 MEQ TABLET.EFF NG-TUBE SCH ×2 (05:12→06:20)
--- NOTE | 2020-01-22 06:40 | XR ---
EXAMINATION TYPE: XR chest 1V portable DATE OF EXAM: 01/22/2020 HISTORY: Respiratory Failure. REFERENCE: Previous study dated 01/21/2020. FINDINGS: The patient is ET tube remains in place, unchanged in appearance. There is continuing bibasilar airspace disease. This may have improved slightly. There are small, ella ateral. Heart size upper limits of normal. IMPRESSION: PERHAPS SLIGHT IMPROVEMENT IN AERATION OF BOTH LUNG BASES.
[2020-01-22] MEDS: ALBUTEROL HFA INHALER INHALATION SCH ×4 (07:59→20:36)
[2020-01-22] MEDS: ENOXAPARIN 40 MG/0.4 ML SYRINGE SQ SCH ×2 (08:37→20:08)
[2020-01-22] MEDS: CHLORHEXIDINE GLUCONATE 15 ML CUP MUCOUS MEM SCH ×2 (08:37→20:09)
[2020-01-22] MEDS: PANTOPRAZOLE 40 MG/10 ML VIAL IV SCH (08:38)
[2020-01-22] MEDS: amLODIPine 10 MG TAB PO SCH (08:38)
[2020-01-22] MEDS: FUROSEMIDE 10 MG/ML 4 ML VIAL IV SCH ×2 (08:38→20:08)
[2020-01-22] MEDS: methylPREDNISolone SOD SUCCI 40 MG/ML 1 ML VIAL IV SCH (08:38)
[2020-01-22] MEDS: LISINOPRIL 2.5 MG TAB PEG/G-TUBE SCH (08:38)
[2020-01-22] MEDS: CHOLECALCIFEROL 1,000 UNIT TAB PEG/G-TUBE SCH (08:38)
[2020-01-22] MEDS: ZINC SULFATE 220 MG CAP PO SCH (08:39)
[2020-01-22 08:46] LABS: Glucose,Whole Blood 101 mg/dL (75-99)
--- NOTE | 2020-01-22 10:45 | P.GSCN ---
History of Present Illness Consult date: 01/22/20 Reason for Consult: Respiratory failure History of present illness: 79-year-old female presents from the senior care with cough and lethargy with hypoxia. Patient initially came to the hospital 25 days ago. 18 was called and she was intubated on January 06. She is now 15 days on the ventilator. Patient was found to have coronavirus infection. We are consulted for possible tracheostomy placement. Patient with history of CVA and already has a feeding tube in place that was changed last in September. Underlying functional status undetermined at this time. Apparently the family has not had an opportunity to speak with the program writer regarding the tracheostomy. 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 History of Any Multi-Drug Resistant Organisms: None Reported Past Surgical History: Hysterectomy Additional Past Surgical History / Comment(s): not known at ECF,peg insertion Past Anesthesia/Blood Transfusion Reactions: No Reported Reaction, Unable to Obtain Additional Past Anesthesia/Blood Transfusion Reaction / Comm: spouse thinks no problems that he knows of(poor historian), no info at ECF Past Psychological History: No Psychological Hx Reported Smoking Status: Former smoker Past Alcohol Use History: None Reported Additional Past Alcohol Use History / Comment(s): STARTED SMOKING AT AGE 17,SMOKED LESS THAN 1 PPD, QUIT 2001. Past Drug Use History: None Reported - Past Family History Mother Family Medical History: Unable to Obtain Additional Family Medical History / Comment(s): no info at ECF Father History Unknown: Yes Medications and Allergies Home Medications Medication Instructions Recorded Confirmed Type amLODIPine [Norvasc] 10 mg PEG/G-TUBE DAILY 01/24/16 12/28/19 History Furosemide [Lasix] 20 mg PEG/G-TUBE DAILY 03/31/16 12/28/19 History Lisinopril [Zestril] 10 mg PEG/G-TUBE DAILY 07/22/17 12/28/19 History Pravastatin Sodium [Pravachol] 10 mg PEG/G-TUBE HS@199907/22/17 12/28/19 History Folic Acid 0.8 mg PEG/G-TUBE HS@199902/23/19 12/28/19 History Metoprolol Tartrate [Lopressor] 50 mg PEG/G-TUBE BID 02/23/19 12/28/19 History Ferrous Sulfate [Iron (65 MG 325 mg PEG/G-TUBE HS@199910/05/19 12/28/19 History Elemental)] cloNIDine HCL [Catapres] 0.1 mg PEG/G-TUBE HS@199910/05/19 12/28/19 History glipiZIDE [Glucotrol] 5 mg PEG/G-TUBE DAILY 10/05/19 12/28/19 History Rivaroxaban [Xarelto] 10 mg PEG/G-TUBE HS@199910/06/19 12/28/19 History Potassium Chloride Oral Liquid 10 meq PEG/G-TUBE DAILY 11/07/19 12/28/19 History Cholecalciferol [Vitamin D3 (25 2,000 unit PEG/G-TUBE DAILY 12/28/19 12/28/19 History Mcg = 1000 Iu)] Insulin Glargine,Hum.rec.anlog 18 unit SQ HS@199912/28/19 12/28/19 History [Lantus Solostar] Insulin Lispro [humaLOG Kwikpen] 2 unit SQ AC-TID@0700,1100,16 12/28/19 12/28/19 History Insulin Lispro [humaLOG Kwikpen] See Protocol SQ ACHS 12/28/19 12/28/19 History Allergies Allergy/AdvReac Type Severity Reaction Status Date / Time No Known Allergies Allergy Verified 12/28/19 17:40 Surgical - Exam Vital Signs BP 124/89 12/28/19 17:30 Physical exam: General: Well-developed, well-nourished HEENT: Normocephalic, sclerae nonicteric Abdomen: Nontender, nondistended, PEG tube intact Extremities: Mild edema Neuro: Intubated Results - Labs 01/22/20 04:02 01/22/20 04:02 Abnormal Lab Results - Last 24 Hours (Table) 01/21/20 01/21/2020 Range/Units 05:24 11:33 16:30 Plt Count (150-450) k/uL ABG pCO2 (35-45) mmHg ABG pO2 (83-108) mmHg ABG HCO3 (21-25) mmol/L ABG Total CO2 (19-24) mmol/L ABG O2 Saturation (94-97) % Carbon Dioxide (22-30) mmol/L BUN (7-17) mg/dL Creatinine (0.52-1.04) mg/dL Glucose (74-99) mg/dL POC Glucose (mg/dL) 173 H 288 H (75-99) mg/dL Calcium (8.4-10.2) mg/dL Ferritin 441.2 H (10.0-291.0) ng/mL Creatine Kinase (30-135) U/L C-Reactive Protein (<10.0) mg/L Total Protein (6.3-8.2) g/dL Albumin (3.5-5.0) g/dL 01/21/20 01/21/20 01/22/20 Range/Units 20:49 23:58 03:52 Plt Count (150-450) k/uL ABG pCO2 (35-45) mmHg ABG pO2 (83-108) mmHg ABG HCO3 (21-25) mmol/L ABG Total CO2 (19-24) mmol/L ABG O2 Saturation (94-97) % Carbon Dioxide (22-30) mmol/L BUN (7-17) mg/dL Creatinine (0.52-1.04) mg/dL Glucose (74-99) mg/dL POC Glucose (mg/dL) 230 H 121 H 115 H (75-99) mg/dL Calcium (8.4-10.2) mg/dL Ferritin (10.0-291.0) ng/mL Creatine Kinase (30-135) U/L C-Reactive Protein (<10.0) mg/L Total Protein (6.3-8.2) g/dL Albumin (3.5-5.0) g/dL 01/22/20 01/22/20 01/22/20 Range/Units 04:02 04:02 04:47 Plt Count 116 L (150-450) k/uL ABG pCO2 56 H (35-45) mmHg ABG pO2 65 L (83-108) mmHg ABG HCO3 38 H (21-25) mmol/L ABG Total CO2 40 H (19-24) mmol/L ABG O2 Saturation 92.5 L (94-97) % Carbon Dioxide 36 H (22-30) mmol/L BUN 35 H (7-17) mg/dL Creatinine 0.47 L (0.52-1.04) mg/dL Glucose 123 H (74-99) mg/dL POC Glucose (mg/dL) (75-99) mg/dL Calcium 10.3 H (8.4-10.2) mg/dL Ferritin (10.0-291.0) ng/mL Creatine Kinase <20 L (30-135) U/L C-Reactive Protein 12.6 H (<10.0) mg/L Total Protein 5.8 L (6.3-8.2) g/dL Albumin 3.0 L (3.5-5.0) g/dL 01/22/20 Range/Units 08:45 Plt Count (150-450) k/uL ABG pCO2 (35-45) mmHg ABG pO2 (83-108) mmHg ABG HCO3 (21-25) mmol/L ABG Total CO2 (19-24) mmol/L ABG O2 Saturation (94-97) % Carbon Dioxide (22-30) mmol/L BUN (7-17) mg/dL Creatinine (0.52-1.04) mg/dL Glucose (74-99) mg/dL POC Glucose (mg/dL) 101 H (75-99) mg/dL Calcium (8.4-10.2) mg/dL Ferritin (10.0-291.0) ng/mL Creatine Kinase (30-135) U/L C-Reactive Protein (<10.0) mg/L Total Protein (6.3-8.2) g/dL Albumin (3.5-5.0) g/dL Diabetes panel 01/22/20 Range/Units 04:02 Sodium 138 (137-145) mmol/L Potassium 3.5 (3.5-5.1) mmol/L Chloride 100 (98-107) mmol/L Carbon Dioxide 36 H (22-30) mmol/L BUN 35 H (7-17) mg/dL Creatinine 0.47 L (0.52-1.04) mg/dL Glucose 123 H (74-99) mg/dL Calcium 10.3 H (8.4-10.2) mg/dL AST 20 (14-36) U/L ALT 19 (4-34) U/L Alkaline Phosphatase 74 (38-126) U/L Total Protein 5.8 L (6.3-8.2) g/dL Albumin 3.0 L (3.5-5.0) g/dL Calcium panel 01/22/20 Range/Units 04:02 Calcium 10.3 H (8.4-10.2) mg/dL Albumin 3.0 L (3.5-5.0) g/dL Pituitary panel 01/22/20 Range/Units 04:02 Sodium 138 (137-145) mmol/L Potassium 3.5 (3.5-5.1) mmol/L Chloride 100 (98-107) mmol/L Carbon Dioxide 36 H (22-30) mmol/L BUN 35 H (7-17) mg/dL Creatinine 0.47 L (0.52-1.04) mg/dL Glucose 123 H (74-99) mg/dL Calcium 10.3 H (8.4-10.2) mg/dL Adrenal panel 01/22/20 Range/Units 04:02 Sodium 138 (137-145) mmol/L Potassium 3.5 (3.5-5.1) mmol/L Chloride 100 (98-107) mmol/L Carbon Dioxide 36 H (22-30) mmol/L BUN 35 H (7-17) mg/dL Creatinine 0.47 L (0.52-1.04) mg/dL Glucose 123 H (74-99) mg/dL Calcium 10.3 H (8.4-10.2) mg/dL Total Bilirubin 0.4 (0.2-1.3) mg/dL AST 20 (14-36) U/L ALT 19 (4-34) U/L Alkaline Phosphatase 74 (38-126) U/L Total Protein 5.8 L (6.3-8.2) g/dL Albumin 3.0 L (3.5-5.0) g/dL Assessment and Plan (1) Respiratory failure with hypoxia Narrative/Plan: 79-year-old female with respiratory failure with hypoxia secondary to covid infection. Continue weaning per pulmonary. Formal discussion with family regarding possible tracheostomy placement. Certainly given the patient's multiple comorbidities discussion with family regarding comfort measures is not unreasonable. This is still early for consideration of trach in this valverde virus patient. We'll follow with you. Current Visit: Yes Status: Acute Code(s): J96.91 - RESPIRATORY FAILURE, UNSPECIFIED WITH HYPOXIA SNOMED Code(s): 56302008122739940
[2020-01-22 11:29] LABS: Magnesium 2.1 mg/dL (1.6-2.3); Potassium 4.8 mmol/L (3.5-5.1)
[2020-01-22 11:42] LABS: Glucose,Whole Blood 157 mg/dL (75-99)
--- NOTE | 2020-01-22 12:45 | P.PN ---
Subjective Progress Note Date: 01/22/20 Principal diagnosis: Acute hypoxic respiratory failure on ventilator COVID 19 pneumonia Aspiration pneumonia likely mixed bacterial and/or or gram-negative related Chronic right-sided weakness dysphagia and aphasia status post PEG tube COPD Insulin-dependent diabetes mellitus uncontrolled Hypertension hypertensive cardiovascular disease Chronic atrial fibrillation on anticoagulation off of his Xeralto, has been initiated on Lovenox twice a day 01/22/2020, patient seen and evaluated examined during the rounds labs reviewed medications reviewed care plan discussed with the staff at length patient has been evaluated by general surgery for tracheostomy, also by infectious disease services, patient remains very marginal for oxygenation with elevated CO2, sats are 87-88% with gurgling respiration patient required frequent suctioning and pulmonary toilet with that the saturation improved to 94-95%, to begin with patient does not have a strong cough to expectorate, she also has a stroke with right hemiparesis I feel that it is not safe to extubate the patient currently, continued to aggressively pulmonary toilet pending tracheostomy, white cell count is 13,000 CBC is stable WBC count is declining platelet count slightly low, arterial blood gases reviewed patient has compensated hypercapnic respiratory failure still on peep of 8 and 450 tidal volume, 40% oxygen, pO2 is just 65 patient is breathing 12-14 sed rate is 12, adequate urine output is present, tube feed is being tolerated well, patient remains afebrile, chest x- ray showed slight improvement in aeration of both lung ivy, patient remains on Rocephin for Klebsiella pneumonia, likely sedated with propofol 25 mics attempts to wean propofol has been unsuccessful resulting in bouts of coughing and desaturation 01/21/2020, patient seen eval examined during the rounds labs reviewed medications reviewed, patient has excessive amount of respiratory secretions, which are 10 and clear, patient developed respiratory distress and desaturation, patient required frequent suctioning remains on 25 mics of propofol, remains on assist control mode rate of 14 tidal volume of 500 PEEP is 8, 40% oxygen, ABG from this morning noted there were done at the time and she was coughing and saturation were low, sats are now has improved to 95%, hemodynamic send data has been reviewed, patient can be weaned but cannot be safely extubated due to prior multiple comorbidities including 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 multiple strokes in the past we'll consult for tracheostomy sometime to be done early next week I have left messages for family awaiting for their advice in the meantime continue antibiotics labs reviewed medications reviewed radiographic studies reviewed critical care time 35 minutes 01/20/2020, patient seen eval examined during the rounds overall respiratory status remains stable patient remains on assist control rate of 16 breathing 16, tidal Volume is 500 PEEP is 8, patient was on CPAP pressure support most of the day yesterday propofol was off now has been resumed, oxygen saturation 94-95%, arterial blood gases reviewed this is stable of the respiratory alkalosis we'll decrease her ventilation, will put patient on CPAP of 5 and pressure support of 5 and obtain a blood gas will stop propofol as well continue diuresis, sputum came back for positive for Klebsiella likely healthcare associated pneumonia patient is on a IV Rocephin dose has been adjusted, Klebsiella appears to be sensitive to Rocephin, patient has adequate urine output to feed tolerated well, no fever is present, labs fairly within normal limit electrolytes including protection initially will be replaced critical care time spent 35 minutes 01/19/2020, patient seen eval examined during the rounds labs reviewed medications reviewed care plan discussed with the staff at length patient has been on 40% oxygen and PEEP of 8 saturation is 94%, she is off of propofol remains nonverbal and noncommunicative like baseline due to prior CVA and hemiparesis, cannot do maximal respiratory pressure, also some on the weaning parameters cannot be achieved due to stroke in the past, hemodynamic status stable heart rate is stable blood pressure is stable off of propofol for last 1 hour, labs reviewed white cell count is 6900, arterial blood gas from this morning reviewed after that patient receive Lasix 40 mg IV put out over 350 mL of urine right away, per day she missed 3.41 potassium replacement protocol, chest x-ray from earlier this morning reviewed basal small pleural effusion along with atelectasis seen with interstitial edema overall remains essentially unchanged 01/18/2020, patient seen and evaluated, remains on ventilator stable oxygenation is slightly low patient however remains on stable vent settings FiO2 50% tidal volume of 458 of PEEP, assist control mode breathing about 20-24, oxygen saturation is 92%, patient remains on propofol 25 mics gently sedated, hemodynamic status stable heart and blood pressure is stable off of vasopressors, patient is tolerating well. She is slightly low this morning given extra Lasix 40 mg IV now we'll keep the patient on negative balance, peak airway pressure 30 tolerating vent adjustment well him to lower down the FiO2 to 40% and start his spontaneous breathing trial of CPAP of 5 and pressure support of 10 as tolerated an hour to 45 minutes during which will DC the propofol, labs reviewed, patient is growing gram-negative rods in the sputum, she is adequately covered with Zosyn, chest x-ray reviewed stable lines and tubes, interstitial edema bilaterally small pleural effusion right lower lobe stable infiltrate, critical care time spent 35 minutes 01/17/2020, patient seen eval reexamined during the rounds labs reviewed medi cations reviewed radiographic studies reviewed as well, patient is still on propofol 25 mics she gets on comfortable if lowers it down we'll keep it for now, ventilator setting is stable, pO2 has improved can go down oxygen to 50 and subsequently to 40%, will keep PEEP 8, peak airway pressure on around 30, suggestive of fairly good compliance, we'll continue to diurese patient after 40 mg of extra Lasix yesterday without 1.5 L of urine repeat that again, to feed being tolerated very well no significant diarrhea has been noted respiratory secretions are minimal, critical care time 35 minutes 01/16/2020, patient seen eval examined during the rounds labs reviewed medications reviewed care plan discussed with the primary service, patient FiO2 is slightly up to percent otherwise PEEP remains 8, tidal volume is 500 with a rate of 16 ventilation appears to be fairly adequate oxygen however remains low review of the data revealed that patient is slightly even and positive in last 48 hours will benefit from some diuresis and given extra Lasix today continue to feed, continue sedation currently on propofol 25 mics, x-ray is not done today, arterial blood gas reviewed labs reviewed. Current care time spent 35 minutes 01/15/2020, patient seen eval examined during the rounds labs reviewed medications reviewed care plan discussed with the staff at length, patient remains on full ventilator support with suctioning and movement she desaturates however similar episodethis morning at the time of chest x-ray when she was repositioned suction and transient desaturation happens arterial blood gas was done at the same time however after that on 25 mics of propofol she has been stable saturation have been 98-99% plan is to come down the oxygen to 40% will keep monitor PPEP 10 and if oxygen remains stable on 40% will go down to 8 by and of the day, hemodynamic status stable blood pressure is stable and did not require IV hydralazine, heart rate is improve into high 50s and low 60s, patient is off of clonidine and Lopressor now remains off of vasopressors, tolerating the feed well, urine output is good arterial blood gases reviewed adequate ventilation chest x-ray reviewed overall essentially stable with small bilateral pleural effusion, overall plan is to come down to oxygen of 40% and PEEP of 5 and next 24-48 hours then will initiate spontaneous breathing trials keep ins and outs even are negative side continue current dose of Solu-Medrol and continue antibiotics critical care time 35 minutes 01/14/2020, patient seen eval reexamined during the rounds labs reviewed medications reviewed, chest x-ray reviewed as well, patient remains sedated with propofol drip 25 mics, she is bradycardic heart rate is 40-45 with slightly elevated blood pressure 160-170 breathing with vent rate was initially 20 have been reduced to 16, tidal volume is 450 keep is 15 has been lowered down to 10 saturation is 95-96% chest x-ray reviewed right lower lobe infiltrate and small effusions seen overall lung parenchyma and infiltrate appears stable and continued to improve, patient is tolerating every feed very well labs reviewed CBC within normal limits chemistry revealed ABG combination of metabolic and respiratory alkalosis ventilator has been adjusted Lasix have been lowered down to once a day some contribution from his steroids presents which will be reduced to 40 daily, patient will be observed how she does with lower PEEP, we will start hydralazine IV for blood pressure control, continue to hold Lopressor and also hold clonidine we will get cardiovascular services opinion consultation, patient has been tolerating tube feed very well respiratory secretions are minimal adequate urine output has been present 01/13/2020, patient seen eval reexamined during the rounds labs reviewed medications reviewed radiographic studies reviewed as well patient FiO2 has been brought down to 60% she is on 15 of PEEP, her oxygen saturation 97% she is off of vasopressors, she is on 30 mics of propofol somewhat bradycardic will decrease of propofol to 20 mics, we'll continue to bring down the oxygen to 40% as tolerated in during next 24 hours, then will come on down and PEEP. Respirat ory secretions are minimal to feed is tolerating well mental status not much change, developed bradycardia her beta blockers are being held, her chest x-ray showing small pleural effusion bilaterally and basal atelectasis and consolidation, tubes are stable, she remains on Solu-Medrol 40 every 12 hourly and Lovenox also 40 q 12, it appears that Solu-Medrol has been helping in improving and able to come down on oxygen, peak airway pressure 30, urine output has been adequate patient has some component of respiratory and metabolic alkalosis, we will lower down the Lasix to 20 mg daily also will decrease the tidal volume to 450, care time spent 35 minuteto 01/12/2020, patient seen and evaluated today care plan discussed with the nurse at length radiographic studies and lab studies reviewed, patient remains on assist control mode rate of 20 breathing about 24 26 of patient remains at PEE P of 10 FiO2 of 80% oxygen saturation are 90-94% within increase the PEEP to 15 as blood pressure is stable and titrated oxygen down to 70-60% next 24 hours chest x-ray reviewed continued to show same pattern but overall condition appears to improve to feed as tolerated very well, CBC is normal arterial blood gases history of hypercapnic hypoxic respiratory failure, bicarb is slightly going up the patient seems to be tolerating steroid well however sugars are higher side remains on insulin 01/11/2020, patient seen eval examined during the rounds labs reviewed medications reviewed radiographic studies reviewed as well patient remains sedated with 40 mics of propofol, she'll decrease it to 30 mics off of levo fed drip, patient did start some levo fed last night but now off, noted that FiO2 has been escalated to 100% and PEEP is down to 5, we'll increase PEEP back to 10 and titrated oxygen down as tolerated to bring it down to goal of 70% in next 24 hours slowly will decrease his sedation as well, 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, left-sided slight worsening has been noted with small left- sided pleural effusion likely fluid overload some of the fluid is present on the right side as well patient medications have been reviewed, patient is on Norvasc 10 mg along with Catapres and Ogestrel, patient has been started on IV steroids given hypoxia And a Difficult Reports from [place] That Steroids Have Been Helpful in Improving Oxygenation but at the Cost of Increasing Shedding Time However, Terence's Slightly Positive Today, Patient Has Received Lasix, ABG Reviewed pH Is 7.46 PCO2 Is 51 PO2 Is 58 That Is on PEEP of 5 and 100% Oxygen, Her LDH Is up to 926 Ferritin C-Reactive Protein and IL6 Levels Are Pending 01/10/2020, patient seen and evaluated examined during the rounds labs reviewed medications reviewed care plan discussed with RN, patient FiO2 has been down to 60% and peak airway pressures are stable, patient remains on assist control mode rate of 20 breathing about 25-28 oxygen saturation 93% she is 10, spontaneous tidal volume on about 400 500 range patient has been getting his spontaneous breathing trial and she is been sedated with propofol drip very small dose of levofed is still going to come patient is on broad-spectrum antibiotics to feed is going on patient is on half normal saline as well chest x-ray shows diffuse infiltrate stable lines 01/08/2020, patient seen and evaluated examined in ICU patient remains on current ventilator with full ventilatory response be clear pressure slightly better than yesterday ranging from 30-32, patient is down to 70% now PEEP of 10 assist control is 20 breathing about 25-26 tidal volume is 400 this morning ABG reviewed ventilation is adequate slight hypoxia was noted but however sats at that time when the gas were done were 91-92% since that time patient has received 20 of Lasix and put out about 550 mL of urine and saturation is improved to 96%, patient is afebrile, patient would need a PICC line tomorrow, remains on propofol dose has been escalated today, tolerating to feed well, rogers gars are in low 200 range, LDH is 817 C-reactive protein is 25.2 on the they are showing downward trend her plan discussed with the staff at length will increase her Lasix to 20 mg daily will keep patient on 70% and PEEP of 10 and today attempt to titrate oxygen down again tomorrow chest x-ray showed some improved aviation compared to prior study stable ET tube, and seems to tolerating Lasix well any significant compromise in hemodynamic status critical care time spent 35 minutes 01/07/2020, patient does live increase respiratory distress earlier this morning oxygen remains very poor saturation dropped down into 70s to 80s percent, pO2 was only 46 patient was intubated and placed in ICU where patient was seen eval reexamined, patient remains on levo fed drip on 5 mics, her hemodynamic is slightly better systolic blood pressure ranging from 100 210, patient is on propofol 20, vent setting include assist control of 20 tidal volume of 400, PEEP of 10, FiO2 have been lowered down to 90%, ABG and laboratory data data reviewed chest x-ray reviewed mild bilateral interstitial infiltrate consistent with viral pneumonia, patient is being started on Lovenox twice a day continued on tube feed will increase gentle hydration, blood glucose is running slightly high will increase the Levemir, critical care time spent 45 minutes 01/06/2020, patient seen and evaluated examined remains on nonrebreather mask still have problems associated with shortness of breath, care plan discussed with RN will continue current plan of care patient can be started on as needed breathing treatments will continue to gently diurese 01/05/2020, patient seen and evaluated examined remains on nonrebreather mask, nonverbal and noncommunicative essentially no significant change in neurological condition, she remained afebrile with stable hemodynamics her oxygen saturations improved to 96% on repeat nonrebreather mask 01/04/2020, patient laying on the bed on 100% nonrebreather mask and breathing is slightly short of breath, patient is on bronchodilator along with antibiotics, has been on Lasix as well, patient remains on Zosyn, labs reviewed white cell count is normal, labs reviewed, glucose is 342, BUN/creatinine is 25 and 0.7, stool for C. difficile is negative 01/02/2020, patient seen eval examined during the rounds patient has a rapid response this morning with the shortness of breath she however responded well with Lasix, Sands's catheter has been placed, shortness of breath have improved though, on 4 L saturation is 92% low-grade temperature of 99 is present, her chest x-ray assistive of the left lower lobe pneumonia and right perihilar infiltrate prominent lung markings likely fluid overload, Objective - Vital Signs Vital signs: Vital Signs Temp 98.4 F 01/22/20 12:00 Pulse 64 01/22/20 11:00 Resp 15 01/22/20 12:00 BP 108/58 01/22/20 12:00 Pulse Ox 97 01/22/20 12:00 Intake & Output 01/21/20 01/22/20 01/22/20 18:59 06:59 18:59 Intake Total 598 234 270 Output Total 890 1015 665 Balance -292 -781 -395 Weight 79.3 kg 77.7 kg Intake: IV 120 120 50 0.9% NS 120 120 50 Tube Feeding 418 114 190 Other 60 30 Output: Urine 890 1015 665 Other: Voiding Method Indwelling Catheter Indwelling Catheter Indwelling Catheter - Exam - Neck Neck: no lymphadenopathy, no stridor - Respiratory Scattered rhonchi throughout, full ventilator support - Cardiovascular Regular rhythm and rate. S1 and S2 present, negative for S3, gallop or murmur. Trace edema to her bilateral lower extremities. - Gastrointestinal Abdomen soft and nondistended. - Integumentary Skin is warm and dry. No clubbing or cyanosis is present. Integumentary: no rash - Neurologic Recently off of propofol drip - Labs CBC & Chem 7: 01/22/20 04:02 01/22/20 09:35 Labs: Abnormal Lab Results - Last 24 Hours (Table) 01/21/20 01/21/20 01/21/20 Range/Units 05:24 16:30 20:49 Plt Count (150-450) k/uL ABG pCO2 (35-45) mmHg ABG pO2 (83-108) mmHg ABG HCO3 (21-25) mmol/L ABG Total CO2 (19-24) mmol/L ABG O2 Saturation (94-97) % Carbon Dioxide (22-30) mmol/L BUN (7-17) mg/dL Creatinine (0.52-1.04) mg/dL Glucose (74-99) mg/dL POC Glucose (mg/dL) 288 H 230 H (75-99) mg/dL Calcium (8.4-10.2) mg/dL Ferritin 441.2 H (10.0-291.0) ng/mL Creatine Kinase (30-135) U/L C-Reactive Protein (<10.0) mg/L Total Protein (6.3-8.2) g/dL Albumin (3.5-5.0) g/dL 01/21/20 01/22/20 01/22/20 Range/Units 23:58 03:52 04:02 Plt Count (150-450) k/uL ABG pCO2 (35-45) mmHg ABG pO2 (83-108) mmHg ABG HCO3 (21-25) mmol/L ABG Total CO2 (19-24) mmol/L ABG O2 Saturation (94-97) % Carbon Dioxide 36 H (22-30) mmol/L BUN 35 H (7-17) mg/dL Creatinine 0.47 L (0.52-1.04) mg/dL Glucose 123 H (74-99) mg/dL POC Glucose (mg/dL) 121 H 115 H (75-99) mg/dL Calcium 10.3 H (8.4-10.2) mg/dL Ferritin (10.0-291.0) ng/mL Creatine Kinase <20 L (30-135) U/L C-Reactive Protein 12.6 H (<10.0) mg/L Total Protein 5.8 L (6.3-8.2) g/dL Albumin 3.0 L (3.5-5.0) g/dL 01/22/20 01/22/20 01/22/20 Range/Units 04:02 04:47 08:45 Plt Count 116 L (150-450) k/uL ABG pCO2 56 H (35-45) mmHg ABG pO2 65 L (83-108) mmHg ABG HCO3 38 H (21-25) mmol/L ABG Total CO2 40 H (19-24) mmol/L ABG O2 Saturation 92.5 L (94-97) % Carbon Dioxide (22-30) mmol/L BUN (7-17) mg/dL Creatinine (0.52-1.04) mg/dL Glucose (74-99) mg/dL POC Glucose (mg/dL) 101 H (75-99) mg/dL Calcium (8.4-10.2) mg/dL Ferritin (10.0-291.0) ng/mL Creatine Kinase (30-135) U/L C-Reactive Protein (<10.0) mg/L Total Protein (6.3-8.2) g/dL Albumin (3.5-5.0) g/dL 01/22/20 Range/Units 11:40 Plt Count (150-450) k/uL ABG pCO2 (35-45) mmHg ABG pO2 (83-108) mmHg ABG HCO3 (21-25) mmol/L ABG Total CO2 (19-24) mmol/L ABG O2 Saturation (94-97) % Carbon Dioxide (22-30) mmol/L BUN (7-17) mg/dL Creatinine (0.52-1.04) mg/dL Glucose (74-99) mg/dL POC Glucose (mg/dL) 157 H (75-99) mg/dL Calcium (8.4-10.2) mg/dL Ferritin (10.0-291.0) ng/mL Creatine Kinase (30-135) U/L C-Reactive Protein (<10.0) mg/L Total Protein (6.3-8.2) g/dL Albumin (3.5-5.0) g/dL Assessment and Plan Assessment: Acute hypoxic respiratory failure on ventilator COVID 19 pneumonia with some improvement in oxygenation Gram-negative Klebsiella pneumonia, healthcare associated pneumonia likely Ventilator adjustment now patient is on 40 % oxygen but will be titrated oxygen down as tolerated, her peak airway pressures are stable high 20s , will keep PEEP to 8, will continue weaning trial as tolerated sedation holiday along with CPAP and pressure support control trial as tolerated Sinus bradycardia with hypertension, monitor off of Lopressor and clonidine, continue hydralazine IV as needed consult cardiovascular disease and associated patient Norvasc dose has been escalated patient is manifesting adequate hemodynamics heart rate is in 60s and blood pressure is adequate Continue I's and Os negative side monitor urine output, increase Lasix to 40 mg IV every 12 hours Patient is getting trial of steroids seems to be tolerating well thus hyperglycemia is some improvement in chest x-ray and oxygenation, there is some anecdotal reports coming from [place] it helps oxygenation however with the cost of prolonged shedding of viral particles we'll continue it to once daily, after increasing the Lantus to 40 Sugars are better under control, we'll decrease the Solu-Medrol to 20 milligrams daily Bilateral small pleural effusion multifactorial process Chronic right-sided weakness dysphagia and aphasia status post PEG tube COPD Insulin-dependent diabetes mellitus uncontrolled Hypertension hypertensive cardiovascular disease, will decrease Norvasc to 5 mg Chronic atrial fibrillation on anticoagulation Lovenox Critical care time 35 minutes Plan: Patient at risk of respiratory failure again in the event of extubation, in order to extubate safely will need a tracheostomy also patient has excessive amount of respiratory secretions which require frequent suctioning, to begin with patient has multiple comorbidities including marisol-plegia a aphasia and strokes in the past, message has been left for family consult has been initiated with surgical service for tracheostomy Titrated oxygen down as as tolerated with slow lowering of PEEP, will be lowered subsequently as noted above Continue sedation holiday in his spontaneous breathing trials Will discuss with the family about further plan of care Anticoagulation. Lovenox twice a day Continue Norvasc other hemodynamic parameters as noted above Lowering of IV steroids for adjustment of insulin as needed Observe off of levo fed Gentle diuresis will keep her negative for another 24 hours Continue tube feed Ventilator adjustment Continue to check inflammatory labs for covid19 as needed Monitor sodium levels closely Continue respiratory and contact isolation Time with Patient: Greater than 30
[2020-01-22] MEDS: NOREPINEPHRINE 4 MG in SODIUM CHLORIDE 0.9% 250 ML IV SCH (15:17)
[2020-01-22] MEDS: PROPOFOL 1,000 MG in EMPTY BAG 1 BAG IV SCH ×2 (15:18→23:29)
[2020-01-22 15:30] LABS: Glucose,Whole Blood 259 mg/dL (75-99)
[2020-01-22 19:58] LABS: Glucose,Whole Blood 239 mg/dL (75-99)
[2020-01-22] MEDS: FERROUS SULFATE ORAL ELIXIR 300 MG/5 ML CUP PEG/G-TUBE SCH (20:08)
[2020-01-22] MEDS: INSULIN DETEMIR (LEVEMIR) 100 UNIT/ML SYR SQ SCH (20:09)
--- NOTE | 2020-01-22 23:04 | PN ---
PROGRESS NOTE DATE OF SERVICE: 01/22/2020 REASON FOR FOLLOWUP: Pneumonia. INTERVAL HISTORY: The patient is currently afebrile. The patient is being more awake and alert, localized on the vent. FiO2 is currently 40%. No other changes reported. PHYSICAL EXAMINATION: Blood pressure 136/69 with a pulse of 71, temperature 98.6. She is 96% on 40% FiO2. General description is an elderly female intubated on the vent. RESPIRATORY SYSTEM: Unlabored breathing, clear to auscultation anteriorly. HEART: S1, S2. Regular rate and rhythm. ABDOMEN: Soft, no distention. LABS: Hemoglobin 13.3, white count 7.4, BUN of 35, creatinine 0.47. DIAGNOSTIC IMPRESSION AND PLAN: Patient with acute respiratory failure which is multifactorial did have a component of pneumonia. X-ray did show slight improvement. The patient is apparently difficult to wean. Currently covered with Rocephin to continue and monitor clinical course closely. MMODL / ROBELN: [id number] / [id number]
[2020-01-23 00:04] LABS: Glucose,Whole Blood 177 mg/dL (75-99)
[2020-01-23] MEDS: INSULIN ASPART (NovoLOG) 100 UNIT/ML VIAL SQ SCH ×6 (00:19→20:57)
[2020-01-23 03:53] LABS: Glucose,Whole Blood 115 mg/dL (75-99)
[2020-01-23 05:00] LABS: Basophils % (A) 1 %; Eosinophils # (A) 0.1 k/uL (0-0.7); Eosinophils % (A) 2 %; HCT 44.4 % (34.0-46.0); HGB 13.9 gm/dL (11.4-16.0); Hypochromasia Moderate; Lymphocytes # (A) 1.6 k/uL (1.0-4.8); Lymphocytes % (A) 21 %; MCH 31.1 pg (25.0-35.0); MCHC 31.2 g/dL (31.0-37.0); MCV 99.6 fL (80.0-100.0); Macrocytosis Slight; Mean Platelet Volume 10.6; Monocytes # (A) 0.5 k/uL (0-1.0); Monocytes % (A) 6 %; Neutrophils # (A) 5.2 k/uL (1.3-7.7); Neutrophils % (A) 68 %; Platelet Count 149 k/uL (150-450); RBC 4.46 m/uL (3.80-5.40); RDW 14.5 % (11.5-15.5); WBC 7.6 k/uL (3.8-10.6)
[2020-01-23 05:10] LABS: ABG Base Excess 15.8 mmol/L; ABG Oxygen Saturation 89.7 % (94-97); ABG PCO2 56 mmHg (35-45); ABG PH 7.46 (7.35-7.45); ABG TCO2 41 mmol/L (19-24); Allen Test Performed? Yes
[2020-01-23 05:17] LABS: ABG HCO3 40 mmol/L (21-25); ABG PO2 57 mmHg (83-108)
[2020-01-23] MEDS: PROPOFOL 1,000 MG in EMPTY BAG 1 BAG IV SCH ×3 (06:06→18:58)
[2020-01-23 07:35] LABS: ALT 21 U/L (4-34); AST 26 U/L (14-36); African American GFR (CKD) >90 (>60 ml/min/1.73 sqM); Albumin 3.1 g/dL (3.5-5.0); Alkaline Phosphatase 86 U/L (38-126); Anion Gap 6 mmol/L; Blood Urea Nitrogen 36 mg/dL (7-17); Calcium 10.4 mg/dL (8.4-10.2); Carbon Dioxide 33 mmol/L (22-30); Chloride 102 mmol/L (98-107); Creatine Kinase <20 U/L (30-135); Glucose 122 mg/dL (74-99); LDH 942 U/L (313-618); Non-African American GFR(CKD) >90 (>60 ml/min/1.73 sqM); Potassium 3.9 mmol/L (3.5-5.1); Sodium 141 mmol/L (137-145); Total Bilirubin 0.5 mg/dL (0.2-1.3); Total Protein 6.3 g/dL (6.3-8.2)
[2020-01-23] MEDS: ALBUTEROL HFA INHALER INHALATION SCH ×4 (07:39→19:09)
[2020-01-23 07:59] LABS: Glucose,Whole Blood 104 mg/dL (75-99)
--- NOTE | 2020-01-23 08:40 | XR ---
EXAMINATION TYPE: XR chest 1V portable DATE OF EXAM: 01/23/2020 COMPARISON: 01/22/2020 HISTORY: Respiratory failure TECHNIQUE: Single frontal view of the chest is obtained. FINDINGS: Skinfold overlies the right hemithorax with pulmonary vasculature seen lateral to this. Th ere is prominence of the right perihilar region however this is exaggerated by patient rotation. The cardiomediastinal silhouette appears enlarged. Retrocardiac airspace disease obscures the left hemidi aphragm. Right basilar airspace disease is also seen although the lesser degree. Trace pleural effusi ons on the costophrenic angles. Endotracheal tube is similar in position. IMPRESSION: Similar-appearing bibasilar airspace disease and trace pleural effusions with newly seen prominence of the right perihilar region that may relate to rotation.
[2020-01-23] MEDS: POTASSIUM BICARBONATE/CIT AC 20 MEQ TABLET.EFF PO SCH (08:41)
[2020-01-23] MEDS: PANTOPRAZOLE 40 MG/10 ML VIAL IV SCH (08:44)
[2020-01-23] MEDS: FUROSEMIDE 10 MG/ML 4 ML VIAL IV SCH ×2 (08:44→20:46)
[2020-01-23] MEDS: CHLORHEXIDINE GLUCONATE 15 ML CUP MUCOUS MEM SCH ×2 (08:45→20:46)
[2020-01-23] MEDS: ENOXAPARIN 40 MG/0.4 ML SYRINGE SQ SCH ×2 (08:45→20:46)
[2020-01-23] MEDS: LISINOPRIL 2.5 MG TAB PEG/G-TUBE SCH (08:46)
[2020-01-23] MEDS: ZINC SULFATE 220 MG CAP PO SCH (08:46)
[2020-01-23] MEDS: amLODIPine 10 MG TAB PO SCH (08:46)
[2020-01-23] MEDS: CHOLECALCIFEROL 1,000 UNIT TAB PEG/G-TUBE SCH (08:46)
[2020-01-23] MEDS: NOREPINEPHRINE 4 MG in SODIUM CHLORIDE 0.9% 250 ML IV SCH (08:46)
[2020-01-23] MEDS ORDERED: methylPREDNISolone SOD SUCCI 40 MG/ML 1 ML VIAL IV SCH (09:00)
[2020-01-23 09:13] LABS: C Reactive Protein 13.7 mg/L (<10.0)
--- NOTE | 2020-01-23 09:51 | P.PN ---
Subjective Progress Note Date: 01/23/20 Principal diagnosis: Acute hypoxic respiratory failure on ventilator COVID 19 pneumonia Aspiration pneumonia likely mixed bacterial and/or or gram-negative related Chronic right-sided weakness dysphagia and aphasia status post PEG tube COPD Insulin-dependent diabetes mellitus uncontrolled Hypertension hypertensive cardiovascular disease Chronic atrial fibrillation on anticoagulation off of his Xeralto, has been initiated on Lovenox twice a day 01/23/2020, patient seen eval reexamined during the rounds labs reviewed medications reviewed care plan discussed with the staff at length, also discussed with the primary service critical care time spent 35 minutes patient h as a marginal saturation are 91-92%, she tolerated his spontaneous breathing trial but ended up and having very little pO2 she is still on significant amount of PEEP of 8 and FiO2 40%, with lowering of propofol the started getting getting into coughing episodes, patient has excessive amount of respiratory secretions which is light with suctioning oxygen saturation has improved though, we will stop the Solu-Medrol continue broad-spectrum antibiotics continue antihypertensive agents continue breathing treatments, 01/22/2020, patient seen and evaluated examined during the rounds labs reviewed medications reviewed care plan discussed with the staff at length patient has been evaluated by general surgery for tracheostomy, also by infectious disease services, patient remains very marginal for oxygenation with elevated CO2, sats are 87-88% with gurgling respiration patient required frequent suctioning and pulmonary toilet with that the saturation improved to 94-95%, to begin with patient does not have a strong cough to expectorate, she also has a stroke with right hemiparesis I feel that it is not safe to extubate the patient currently, continued to aggressively pulmonary toilet pending tracheostomy, white cell count is 13,000 CBC is stable WBC count is declining platelet count slightly low, arterial blood gases reviewed patient has compensated hypercapnic respiratory failure still on peep of 8 and 450 tidal volume, 40% oxygen, pO2 is just 65 patient is breathing 12-14 sed rate is 12, adequate urine output is present, tube feed is being tolerated well, patient remains afebrile, chest x- ray showed slight improvement in aeration of both lung ivy, patient remains on Rocephin for Klebsiella pneumonia, likely sedated with propofol 25 mics attempts to wean propofol has been unsuccessful resulting in bouts of coughing and desaturation 01/21/2020, patient seen eval examined during the rounds labs reviewed medications reviewed, patient has excessive amount of respiratory secretions, which are 10 and clear, patient developed respiratory distress and desaturation, patient required frequent suctioning remains on 25 mics of propofol, remains on assist control mode rate of 14 tidal volume of 500 PEEP is 8, 40% oxygen, ABG from this morning noted there were done at the time and she was coughing and saturation were low, sats are now has improved to 95%, hemodynamic send data has been reviewed, patient can be weaned but cannot be safely extubated due to prior multiple comorbidities including 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 multiple strokes in the past we'll consult for tracheostomy sometime to be done early next week I have left messages for family awaiting for their advice in the meantime continue antibiotics labs reviewed medications reviewed radiographic studies reviewed critical care time 35 minutes 01/20/2020, patient seen eval examined during the rounds overall respiratory status remains stable patient remains on assist control rate of 16 breathing 16, tidal Volume is 500 PEEP is 8, patient was on CPAP pressure support most of the day yesterday propofol was off now has been resumed, oxygen saturation 94-95%, arterial blood gases reviewed this is stable of the respiratory alkalosis we'll decrease her ventilation, will put patient on CPAP of 5 and pressure support of 5 and obtain a blood gas will stop propofol as well continue diuresis, sputum came back for positive for Klebsiella likely healthcare associated pneumonia patient is on a IV Rocephin dose has been adjusted, Klebsiella appears to be sensitive to Rocephin, patient has adequate urine output to feed tolerated well, no fever is present, labs fairly within normal limit electrolytes including protection initially will be replaced critical care time spent 35 minutes 01/19/2020, patient seen eval examined during the rounds labs reviewed medications reviewed care plan discussed with the staff at length patient has been on 40% oxygen and PEEP of 8 saturation is 94%, she is off of propofol remains nonverbal and noncommunicative like baseline due to prior CVA and hemiparesis, cannot do maximal respiratory pressure, also some on the weaning parameters cannot be achieved due to stroke in the past, hemodynamic status stable heart rate is stable blood pressure is stable off of propofol for last 1 hour, labs reviewed white cell count is 6900, arterial blood gas from this morning reviewed after that patient receive Lasix 40 mg IV put out over 350 mL of urine right away, per day she missed 3.41 potassium replacement protocol, chest x-ray from earlier this morning reviewed basal small pleural effusion along with atelectasis seen with interstitial edema overall remains essentially unchanged 01/18/2020, patient seen and evaluated, remains on ventilator stable oxygenation is slightly low patient however remains on stable vent settings FiO2 50% tidal volume of 458 of PEEP, assist control mode breathing about 20-24, oxygen saturation is 92%, patient remains on propofol 25 mics gently sedated, hemodynamic status stable heart and blood pressure is stable off of vasop ressors, patient is tolerating well. She is slightly low this morning given extra Lasix 40 mg IV now we'll keep the patient on negative balance, peak airway pressure 30 tolerating vent adjustment well him to lower down the FiO2 to 40% and start his spontaneous breathing trial of CPAP of 5 and pressure support of 10 as tolerated an hour to 45 minutes during which will DC the propofol, labs reviewed, patient is growing gram-negative rods in the sputum, she is adequately covered with Zosyn, chest x-ray reviewed stable lines and tubes, interstitial edema bilaterally small pleural effusion right lower lobe stable infiltrate, critical care time spent 35 minutes 01/17/2020, patient seen eval reexamined during the rounds labs reviewed medications reviewed radiographic studies reviewed as well, patient is still on propofol 25 mics she gets on comfortable if lowers it down we'll keep it for now, ventilator setting is stable, pO2 has improved can go down oxygen to 50 and subsequently to 40%, will keep PEEP 8, peak airway pressure on around 30, suggestive of fairly good compliance, we'll continue to diurese patient after 40 mg of extra Lasix yesterday without 1.5 L of urine repeat that again, to feed being tolerated very well no significant diarrhea has been noted respiratory secretions are minimal, critical care time 35 minutes 01/16/2020, patient seen eval examined during the rounds labs reviewed medications reviewed care plan discussed with the primary service, patient FiO2 is slightly up to percent otherwise PEEP remains 8, tidal volume is 500 with a rate of 16 ventilation appears to be fairly adequate oxygen however remains low review of the data revealed that patient is slightly even and positive in last 48 hours will benefit from some diuresis and given extra Lasix today continue to feed, continue sedation currently on propofol 25 mics, x-ray is not done today, arterial blood gas reviewed labs reviewed. Current care time spent 35 minutes 01/15/2020, patient seen eval examined during the rounds labs reviewed medications reviewed care plan discussed with the staff at length, patient remains on full ventilator support with suctioning and movement she desaturates however similar episodethis morning at the time of chest x-ray when she was repositioned suction and transient desaturation happens arterial blood gas was done at the same time however after that on 25 mics of propofol she has been stable saturation have been 98-99% plan is to come down the oxygen to 40% will keep monitor PPEP 10 and if oxygen remains stable on 40% will go down to 8 by and of the day, hemodynamic status stable blood pressure is stable and did not require IV hydralazine, heart rate is improve into high 50s and low 60s, patient is off of clonidine and Lopressor now remains off of vasopressors, tolerating the feed well, urine output is good arterial blood gases reviewed adequate ventilation chest x-ray reviewed overall essentially stable with small bilateral pleural effusion, overall plan is to come down to oxygen of 40% and PEEP of 5 and next 24-48 hours then will initiate spontaneous breathing trials keep ins and outs even are negative side continue current dose of Solu-Medrol and continue antibiotics critical care time 35 minutes 01/14/2020, patient seen eval reexamined during the rounds labs reviewed medications reviewed, chest x-ray reviewed as well, patient remains sedated with propofol drip 25 mics, she is bradycardic heart rate is 40-45 with slightly elevated blood pressure 160-170 breathing with vent rate was initially 20 have been reduced to 16, tidal volume is 450 keep is 15 has been lowered down to 10 saturation is 95-96% chest x-ray reviewed right lower lobe infiltrate and small effusions seen overall lung parenchyma and infiltrate appears stable and continued to improve, patient is tolerating every feed very well labs reviewed CBC within normal limits chemistry revealed ABG combination of metabolic and respiratory alkalosis ventilator has been adjusted Lasix have been lowered down to once a day some contribution from his steroids presents which will be reduced to 40 daily, patient will be observed how she does with lower PEEP, we will star t hydralazine IV for blood pressure control, continue to hold Lopressor and also hold clonidine we will get cardiovascular services opinion consultation, patient has been tolerating tube feed very well respiratory secretions are minimal adequate urine output has been present 01/13/2020, patient seen eval reexamined during the rounds labs reviewed medications reviewed radiographic studies reviewed as well patient FiO2 has been brought down to 60% she is on 15 of PEEP, her oxygen saturation 97% she is off of vasopressors, she is on 30 mics of propofol somewhat bradycardic will decrease of propofol to 20 mics, we'll continue to bring down the oxygen to 40% as tolerated in during next 24 hours, then will come on down and PEEP. Respiratory secretions are minimal to feed is tolerating well mental status not much change, developed bradycardia her beta blockers are being held, her chest x-ray showing small pleural effusion bilaterally and basal atelectasis and consolidation, tubes are stable, she remains on Solu-Medrol 40 every 12 hourly and Lovenox also 40 q 12, it appears that Solu-Medrol has been helping in improving and able to come down on oxygen, peak airway pressure 30, urine output has been adequate patient has some component of respiratory and metabolic alkalosis, we will lower down the Lasix to 20 mg daily also will decrease the tidal volume to 450, care time spent 35 minuteto 01/12/2020, patient seen and evaluated today care plan discussed with the nurse at length radiographic studies and lab studies reviewed, patient remains on assist control mode rate of 20 breathing about 24 26th of patient remains at PEEP of 10 FiO2 of 80% oxygen saturation are 90-94% within increase the PEEP to 15 as blood pressure is stable and titrated oxygen down to 70-60% next 24 hours chest x-ray reviewed continued to show same pattern but overall condition appears to improve to feed as tolerated very well, CBC is normal arterial blood gases history of hypercapnic hypoxic respiratory failure, bicarb is slightly going up the patient seems to be tolerating steroid well however sugars are higher side remains on insulin 01/11/2020, patient seen eval examined during the rounds labs reviewed medications reviewed radiographic studies reviewed as well patient remains sedated with 40 mics of propofol, she'll decrease it to 30 mics off of levo fed drip, patient did start some levo fed last night but now off, noted that FiO2 has been escalated to 100% and PEEP is down to 5, we'll increase PEEP back to 10 and titrated oxygen down as tolerated to bring it down to goal of 70% in next 24 hours slowly will decrease his sedation as well, 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, left-sided slight worsening has been noted with small left- sided pleural effusion likely fluid overload some of the fluid is present on the right side as well patient medications have been reviewed, patient is on Norvasc 10 mg along with Catapres and Ogestrel, patient has been started on IV steroids given hypoxia And a Difficult Reports from [facility] That Steroids Have Been Helpful in Improving Oxygenation but at the Cost of Increasing Shedding Time However, Eisenmenger's Slightly Positive Today, Patient Has Received Lasix, ABG Reviewed pH Is 7.46 PCO2 Is 51 PO2 Is 58 That Is on PEEP of 5 and 100% Oxygen, Her LDH Is up to 926 Ferritin C-Reactive Protein and IL6 Levels Are Pending 01/10/2020, patient seen and evaluated examined during the rounds labs reviewed medications reviewed care plan discussed with RN, patient FiO2 has been down to 60% and peak airway pressures are stable, patient remains on assist control mode rate of 20 breathing about 25-28 oxygen saturation 93% she is 10, spontaneous tidal volume on about 400 500 range patient has been getting his spontaneous breathing trial and she is been sedated with propofol drip very small dose of levofed is still going to come patient is on broad-spectrum antibiotics to feed is going on patient is on half normal saline as well chest x-ray shows diffuse infiltrate stable lines 01/08/2020, patient seen and evaluated examined in ICU patient remains on current ventilator with full ventilatory response be clear pressure slightly better than yesterday ranging from 30-32, patient is down to 70% now PEEP of 10 assist control is 20 breathing about 25-26 tidal volume is 400 this morning ABG reviewed ventilation is adequate slight hypoxia was noted but however sats at that time when the gas were done were 91-92% since that time patient has received 20 of Lasix and put out about 550 mL of urine and saturation is improved to 96%, patient is afebrile, patient would need a PICC line tomorrow, remains on propofol dose has been escalated today, tolerating to feed well, sugars are in low 200 range, LDH is 817 C-reactive protein is 25.2 on the they are showing downward trend her plan discussed with the staff at length will incr ease her Lasix to 20 mg daily will keep patient on 70% and PEEP of 10 and today attempt to titrate oxygen down again tomorrow chest x-ray showed some improved aviation compared to prior study stable ET tube, and seems to tolerating Lasix well any significant compromise in hemodynamic status critical care time spent 35 minutes 01/07/2020, patient does live increase respiratory distress earlier this morning oxygen remains very poor saturation dropped down into 70s to 80s percent, pO2 was only 46 patient was intubated and placed in ICU where patient was seen eval reexamined, patient remains on levo fed drip on 5 mics, her hemodynamic is slightly better systolic blood pressure ranging from 100 210, patient is on propofol 20, vent setting include assist control of 20 tidal volume of 400, PEEP of 10, FiO2 have been lowered down to 90%, ABG and laboratory data data reviewed chest x-ray reviewed mild bilateral interstitial infiltrate consistent with viral pneumonia, patient is being started on Lovenox twice a day continued on tube feed will increase gentle hydration, blood glucose is running slightly high will increase the Levemir, critical care time spent 45 minutes 01/06/2020, patient seen and evaluated examined remains on nonrebreather mask still have problems associated with shortness of breath, care plan discussed with RN will continue current plan of care patient can be started on as needed breathing treatments will continue to gently diurese 01/05/2020, patient seen and evaluated examined remains on nonrebreather mask, nonverbal and noncommunicative essentially no significant change in neurological condition, she remained afebrile with stable hemodynamics her oxygen saturations improved to 96% on repeat nonrebreather mask 01/04/2020, patient laying on the bed on 100% nonrebreather mask and breathing is slightly short of breath, patient is on bronchodilator along with antibiotics, has been on Lasix as well, patient remains on Zosyn, labs reviewed white cell count is normal, labs reviewed, glucose is 342, BUN/creatinine is 25 and 0.7, stool for C. difficile is negative 01/02/2020, patient seen eval examined during the rounds patient has a rapid response this morning with the shortness of breath she however responded well with Lasix, Sands's catheter has been placed, shortness of breath have improved though, on 4 L saturation is 92% low-grade temperature of 99 is present, her chest x-ray assistive of the left lower lobe pneumonia and right perihilar infil trate prominent lung markings likely fluid overload, Objective - Vital Signs Vital signs: Vital Signs Temp 98 F 01/23/20 08:00 Pulse 101 H 01/23/20 09:00 Resp 12 01/23/20 09:00 BP 115/50 01/23/20 09:00 Pulse Ox 90 L 01/23/20 09:00 Intake & Output 01/22/20 01/23/20 01/23/20 18:59 06:59 18:59 Intake Total 742 599.767 236 Output Total 1140 1120 135 Balance -398 -520.233 101 Weight 77.6 kg Intake: IV 120 120 20 0.9% NS 120 120 20 Intake, IV Titration 183.767 50 Amount Propofol 1,000 mg In 183.767 Empty Bag 1 bag @ Titrate IV .Q0M [facility] Rx#: [id number] cefTRIAXone 2 gm In 50 Sodium Chloride 0.9% 50 ml @ 100 mls/hr IVPB Q24HR [facility] Rx#:[id number] Tube Feeding 532 266 76 Other 90 30 90 Output: Urine 1140 1120 135 Other: Voiding Method Indwelling Catheter Indwelling Catheter Indwelling Catheter - Exam - Neck Neck: no lymphadenopathy, no stridor - Respiratory Scattered rhonchi throughout, full ventilator support - Cardiovascular Regular rhythm and rate. S1 and S2 present, negative for S3, gallop or murmur. Trace edema to her bilateral lower extremities. - Gastrointestinal Abdomen soft and nondistended. - Integumentary Skin is warm and dry. No clubbing or cyanosis is present. Integumentary: no rash - Neurologic Recently off of propofol drip - Labs CBC & Chem 7: 01/23/20 04:23 01/23/20 04:23 Labs: Abnormal Lab Results - Last 24 Hours (Table) 01/22/20 01/22/20 01/22/20 Range/Units 11:40 15:27 19:56 Plt Count (150-450) k/uL ABG pH (7.35-7.45) ABG pCO2 (35-45) mmHg ABG pO2 (83-108) mmHg ABG HCO3 (21-25) mmol/L ABG Total CO2 (19-24) mmol/L ABG O2 Saturation (94-97) % Carbon Dioxide (22-30) mmol/L BUN (7-17) mg/dL Creatinine (0.52-1.04) mg/dL Glucose (74-99) mg/dL POC Glucose (mg/dL) 157 H 259 H 239 H (75-99) mg/dL Calcium (8.4-10.2) mg/dL Lactate Dehydrogenase (313-618) U/L Creatine Kinase (30-135) U/L C-Reactive Protein (<10.0) mg/L Albumin (3.5-5.0) g/dL 01/23/20 01/23/20 01/23/20 Range/Units 00:03 03:51 04:23 Plt Count 149 L (150-450) k/uL ABG pH (7.35-7.45) ABG pCO2 (35-45) mmHg ABG pO2 (83-108) mmHg ABG HCO3 (21-25) mmol/L ABG Total CO2 (19-24) mmol/L ABG O2 Saturation (94-97) % Carbon Dioxide (22-30) mmol/L BUN (7-17) mg/dL Creatinine (0.52-1.04) mg/dL Glucose (74-99) mg/dL POC Glucose (mg/dL) 177 H 115 H (75-99) mg/dL Calcium (8.4-10.2) mg/dL Lactate Dehydrogenase (313-618) U/L Creatine Kinase (30-135) U/L C-Reactive Protein (<10.0) mg/L Albumin (3.5-5.0) g/dL 01/23/20 01/23/20 01/23/20 Range/Units 04:23 05:05 07:57 Plt Count (150-450) k/uL ABG pH 7.46 H (7.35-7.45) ABG pCO2 56 H (35-45) mmHg ABG pO2 57 L* (83-108) mmHg ABG HCO3 40 H* (21-25) mmol/L ABG Total CO2 41 H (19-24) mmol/L ABG O2 Saturation 89.7 L (94-97) % Carbon Dioxide 33 H (22-30) mmol/L BUN 36 H (7-17) mg/dL Creatinine 0.41 L (0.52-1.04) mg/dL Glucose 122 H (74-99) mg/dL POC Glucose (mg/dL) 104 H (75-99) mg/dL Calcium 10.4 H (8.4-10.2) mg/dL Lactate Dehydrogenase 942 H (313-618) U/L Creatine Kinase <20 L (30-135) U/L C-Reactive Protein 13.7 H (<10.0) mg/L Albumin 3.1 L (3.5-5.0) g/dL Assessment and Plan Assessment: Acute hypoxic respiratory failure on ventilator COVID 19 pneumonia with some improvement in oxygenation Gram-negative Klebsiella pneumonia, healthcare associated pneumonia likely Ventilator adjustment now patient is on 40 % oxygen but will be titrated oxygen down as tolerated, her peak airway pressures are stable high 20s , will keep PEEP to 8, will continue weaning trial as tolerated sedation holiday along with CPAP and pressure support control trial as tolerated Sinus bradycardia with hypertension, monitor off of Lopressor and clonidine, continue hydralazine IV as needed consult cardiovascular disease and associated patient Norvasc dose has been escalated patient is manifesting adequate hemodynamics heart rate is in 60s and blood pressure is adequate Continue I's and Os negative side monitor urine output, continue Lasix to 40 mg IV every 12 hours Bilateral small pleural effusion multifactorial process Chronic right-sided weakness dysphagia and aphasia status post PEG tube COPD Insulin-dependent diabetes mellitus uncontrolled Hypertension hypertensive cardiovascular disease, will decrease Norvasc to 5 mg Chronic atrial fibrillation on anticoagulation Lovenox Critical care time 35 minutes Plan: Patient at risk of respiratory failure again in the event of extubation, in order to extubate safely will need a tracheostomy also patient has excessive amount of respiratory secretions which require frequent suctioning, to begin with patient has multiple comorbidities including marisol-plegia a aphasia and strokes in the past, message has been left for family consult has been initiated with surgical service for tracheostomy Titrated oxygen down as as tolerated with slow lowering of PEEP, will be lowered subsequently as noted above Continue sedation holiday in his spontaneous breathing trials Will discuss with the family about further plan of care Anticoagulation. Lovenox twice a day Monitor off of his steroids Continue Norvasc other hemodynamic parameters as noted above Lowering of IV steroids for adjustment of insulin as needed Observe off of levo fed Gentle diuresis will keep her negative for another 24 hours Continue tube feed Ventilator adjustment Continue to check inflammatory labs for covid19 as needed Monitor sodium levels closely Continue respiratory and contact isolation Time with Patient: Greater than 30
[2020-01-23] MEDS: METOPROLOL TARTRATE 12.5 MG TAB PO SCH ×2 (10:10→20:46)
[2020-01-23 11:17] LABS: Ferritin 375.7 ng/mL (10.0-291.0)
[2020-01-23 11:26] LABS: Glucose,Whole Blood 188 mg/dL (75-99)
--- NOTE | 2020-01-23 11:56 | P.PN ---
Subjective This is Mel Israel PA-C scribing on behalf of Dr. Arellano Chart review and observation only, Dr. Arellano did not examine the patient because the patient is Covid positive He did discuss the patient with the nurse HPI/interval history Patient is a 79-year-old female who was admitted with hypoxic respiratory failure requiring mechanical ventilator ablation and found to be coronavirus positive. Cardiology was initially consulted for bradycardia and therefore her metoprolol was stopped. We were asked to evaluate the patient again because she went into atrial fibrillation with rates in the low 100s. She remains in the ICU, intubated EXAMINATION Patient is afebrile, pulse in the low 100s, respirations 12, blood pressure 115/50, oxygen saturation 90% on mechanical ventilation Patient was not examined, patient is Covid positive Patient intubated in the ICU REVIEW OF LABS, ECG WBC 7.6, hemoglobin 13.9, platelets 149, potassium 3.9, BUN 36, creatinine 0.41 IMPRESSION / ASSESSMENT: Acute hypoxic respiratory failure requiring mechanical ventilation Covid 19 pneumonia Atrial fibrillation with RVR, rates in the low 100s COPD Hypertension Diabetes PLAN: Continue Lovenox Start low-dose beta herminio, metoprolol 12.5 mg twice a day, continue to monitor telemetry Objective - Vital Signs Vital signs: Vital Signs Temp 98 F 01/23/20 08:00 Pulse 101 H 01/23/20 09:00 Resp 12 01/23/20 09:00 BP 115/50 01/23/20 09:00 Pulse Ox 90 L 01/23/20 09:00 Intake & Output 01/22/20 01/23/20 01/23/20 18:59 06:59 18:59 Intake Total 742 599.767 236 Output Total 1140 1120 135 Balance -398 -520.233 101 Weight 77.6 kg 77.6 kg Intake: IV 120 120 20 0.9% NS 120 120 20 Intake, IV Titration 183.767 50 Amount Propofol 1,000 mg In 183.767 Empty Bag 1 bag @ Titrate IV .Q0M CA[facility]N Rx#: [id number] cefTRIAXone 2 gm In 50 Sodium Chloride 0.9% 50 ml @ 100 mls/hr IVPB Q24HR CAITLYN Rx#:[id number] Tube Feeding 532 266 76 Other 90 30 90 Output: Urine 1140 1120 135 Other: Voiding Method Indwelling Catheter Indwelling Catheter Indwelling Catheter - Labs CBC & Chem 7: 01/23/20 04:23 01/23/20 04:23 Labs: Abnormal Lab Results - Last 24 Hours (Table) 01/22/20 01/22/20 01/22/20 Range/Units 04:02 15:27 19:56 Plt Count (150-450) k/uL ABG pH (7.35-7.45) ABG pCO2 (35-45) mmHg ABG pO2 (83-108) mmHg ABG HCO3 (21-25) mmol/L ABG Total CO2 (19-24) mmol/L ABG O2 Saturation (94-97) % Carbon Dioxide (22-30) mmol/L BUN (7-17) mg/dL Creatinine (0.52-1.04) mg/dL Glucose (74-99) mg/dL POC Glucose (mg/dL) 259 H 239 H (75-99) mg/dL Calcium (8.4-10.2) mg/dL Ferritin 375.7 H (10.0-291.0) ng/mL Lactate Dehydrogenase (313-618) U/L Creatine Kinase (30-135) U/L C-Reactive Protein (<10.0) mg/L Albumin (3.5-5.0) g/dL 01/23/20 01/23/20 01/23/20 Range/Units 00:03 03:51 04:23 Plt Count 149 L (150-450) k/uL ABG pH (7.35-7.45) ABG pCO2 (35-45) mmHg ABG pO2 (83-108) mmHg ABG HCO3 (21-25) mmol/L ABG Total CO2 (19-24) mmol/L ABG O2 Saturation (94-97) % Carbon Dioxide (22-30) mmol/L BUN (7-17) mg/dL Creatinine (0.52-1.04) mg/dL Glucose (74-99) mg/dL POC Glucose (mg/dL) 177 H 115 H (75-99) mg/dL Calcium (8.4-10.2) mg/dL Ferritin (10.0-291.0) ng/mL Lactate Dehydrogenase (313-618) U/L Creatine Kinase (30-135) U/L C-Reactive Protein (<10.0) mg/L Albumin (3.5-5.0) g/dL 01/23/20 01/23/20 01/23/20 Range/Units 04:23 05:05 07:57 Plt Count (150-450) k/uL ABG pH 7.46 H (7.35-7.45) ABG pCO2 56 H (35-45) mmHg ABG pO2 57 L* (83-108) mmHg ABG HCO3 40 H* (21-25) mmol/L ABG Total CO2 41 H (19-24) mmol/L ABG O2 Saturation 89.7 L (94-97) % Carbon Dioxide 33 H (22-30) mmol/L BUN 36 H (7-17) mg/dL Creatinine 0.41 L (0.52-1.04) mg/dL Glucose 122 H (74-99) mg/dL POC Glucose (mg/dL) 104 H (75-99) mg/dL Calcium 10.4 H (8.4-10.2) mg/dL Ferritin (10.0-291.0) ng/mL Lactate Dehydrogenase 942 H (313-618) U/L Creatine Kinase <20 L (30-135) U/L C-Reactive Protein 13.7 H (<10.0) mg/L Albumin 3.1 L (3.5-5.0) g/dL 01/23/20 Range/Units 11:25 Plt Count (150-450) k/uL ABG pH (7.35-7.45) ABG pCO2 (35-45) mmHg ABG pO2 (83-108) mmHg ABG HCO3 (21-25) mmol/L ABG Total CO2 (19-24) mmol/L ABG O2 Saturation (94-97) % Carbon Dioxide (22-30) mmol/L BUN (7-17) mg/dL Creatinine (0.52-1.04) mg/dL Glucose (74-99) mg/dL POC Glucose (mg/dL) 188 H (75-99) mg/dL Calcium (8.4-10.2) mg/dL Ferritin (10.0-291.0) ng/mL Lactate Dehydrogenase (313-618) U/L Creatine Kinase (30-135) U/L C-Reactive Protein (<10.0) mg/L Albumin (3.5-5.0) g/dL
--- NOTE | 2020-01-23 14:44 | P.PN ---
Progress Note - Text Progress Note Date: 01/23/20 Patient remains on a ventilator. She has been on the ventilator approximately 2 weeks. If still on the ventilator we'll consider tracheostomy at 18-21 days.
--- NOTE | 2020-01-23 16:55 | P.PN ---
Subjective Progress Note Date: 01/22/20 Soledad Enriquez, is an 79-year-old female who resides at a snf at this time will was noticed to have worsening mental status and persistent cough, patient started having elevated temperature up to 101 at that point she was sent to [facility] emergency room she had testing for influenza A and B which were negative she also had an instant test for Covid 19 which was positive she was admitted to telemetry floor she was started on IV Zithromax pulmonary and infectious disease consultation were requested. Patient also had evidence of dehydration with hypernatremia elevated sodium level at 151. Patient has a known history of multiple medical problems including history of stroke with right sided paralysis, history of aspiration patient has a PEG tube for feeding, history of insulin-dependent diabetes mellitus, history of hypertension, history of hyperlipidemia, and history of paroxysmal atrial fibrillation. On presentation patient had a temperature of 101 pulse of 82 respiration 18 blood pressure 119/63 and pulse ox of 91% on 4 L nasal cannula. White blood count was 4.8 chest x-ray revealed evidence of left basilar opacity. On 12/30/2019 patient was seen and examined on the medical floor she is somnolent responsive in no apparent distress there is low-grade fever temperature is 100.8 there is no chills no headache or dizziness no chest pain no shortness of breath no cough no nausea or vomiting no abdominal pain no diarrhea and no burning was urination. Nurse noticed some vaginal bleeding, hemoglobin is stable at 15. Pulse ox is 96% on 4 L nasal cannula , On 12/31/2019 patient was seen and examined on the medical floor she is somnolent responsive in no apparent distress, her fever is subsiding temperatures this morning 99 pulse ox is 92% on 4 L nasal cannula, patient is denying any complaints at this time however, she does not seem to be listening much to the questions, and she goes back to sleep fast. White blood count today is normal at 4.1 hemoglobin is 15.2 potassium is elevated at 5.8 On 01/01/2020 patient was seen and examined on the medical floor she is more alert and responsive today there is no fever or chills no headache or dizziness no chest pain no shortness of breath no cough no nausea or vomiting no abdominal pain no diarrhea and no urinary symptoms, she is receiving feeding through PEG tube at night, glucose level is elevated again, will increase Lantus dose to 25 units at bedtime, and continue was inserted into sliding scale. Patient is receiving oxygen via nasal cannula at 4 L her pulse ox is 92% patient does not s eem to be in any distress her temperature heart rates respiration rate and blood pressure are in normal range white blood count is 3.8 potassium 4.8 On 01/02/2020 patient was seen and examined on the medical floor she is alert and responsive in no apparent distress. This morning patient had an episode of shortness of breath with decreased O2 sat duration A team was called patient received IV Lasix Sands catheter was inserted chest x-ray was done. Currently patient is doing better pulse ox is 92% on 4 L nasal cannula. On 01/03/2020 patient was seen and examined on the medical floor she is alert responsive in no apparent distress, her pulse ox is 92% on 6 L nasal cannula she is afebrile blood pressure is 123/87 chest x-ray done yesterday reveals left lower lobe infiltrate and right perihilar infiltrates. Without significant improvement from prior x-rays. On 01/04/2020 patient was seen and examined on the medical floor she is more alert and responsive today he denies any pain or discomfort, her pulse ox was lower today and she was switched to a nonrebreather mask On 01/05/2020 patient was seen and examined on the medical floor, she is alert and responsive at this time, she is tolerating tube feeding well, she denied any pain or discomfort. On 01/06/2020 patient was seen and examined on the medical floor, she is alert responsive in no apparent distress she is answering a few questions with yes or no or nodding her head she is tolerating tube feeding well she is denying any pain or discomfort at this time, her temperature is 98.1 blood pressure 135/75 pulse ox 90% on nonrebreather mask. On 01/07/2020 Patient was seen and examined in the ICU. Around 7:00 am this morning patient was on the floor she was having worsening shortness of breath and using accessory muscles she was on nonrebreather mask and her O2 sat duration was 88% Dr. Caba heat regulator was contacted patient was transferred to ICU she was intubated sedated and started on mechanical ventilation, she was also started on levophed for blood pressure support. On 01/08/2020 Patient was seen and examined in the ICU. She is intubated sedated maintained on mechanical ventilation, she is still on a small dose of Levophed. She is receiving tube feeding via PEG tube. Her ABG reveals a pH of 7.4 to pCO2 45 by mouth to 59 FiO2 is 70% On 01/09/2020 patient was seen and examined in the ICU she remains intubated sedated maintained on mechanical ventilation, she remains on a small dose of levophed for pressure support. ABG reveals a pH of 7.4 pCO2 47 PO2 77 with FiO2 of 70% her temperature is 90.8 pulse 69 respiration 27 blood pressure 112/70 On 01/10/2020 patient was seen and examined in the ICU she is intubated sedated maintained on mechanical ventilation, temperature is 97.9 pulse 62 respiration 20 blood pressure 121/73 ABG reveals pH of 7.39 pCO2 52 by mouth to 59 FiO2 is 60% no significant change in condition since yesterday patient is receiving tube feeding. She was not seen by critical care yesterday due to personal reasons per nurse. At this time will change consult for pulmonary and critical care to Dr. Perez. On 01/11/2020 Patient was seen and examined in the ICU she is intubated, sedated, maintained on mechanical ventilation. there is no fever or chills. ABs reveals PH 7.46 PCO2 51 PO2 58 FIO@ 100 % On 01/12/2020 patient was seen and examined in the ICU she is intubated sedated maintained on mechanical ventilation she is not on any pressure support there is no fever or chills she is receiving tube feeding. On 01/13/2020 patient was seen and examined in the ICU she is intubated sedated maintained on mechanical ventilation, she is maintained on 2 feeding glucose is elevated, dose of Levemir will be increased to 35 units daily, continue with sliding scale. ABG reveals pH 7.5 one pCO2 46 by mouth to 90 FiO2 of 60% On 01/14/2020 patient was seen and examined in the ICU she is intubated sedated maintained on mechanical ventilation she is also maintained on PEG tube feeding she had episodes of bradycardia cardiology were consulted and beta herminio were discontinued and patient was started on Norvasc patient also is having some minimal elevation in her liver enzymes pravastatin was discontinued. Otherwise no significant change in her condition patient remains on mechanical ventilation no weaning trials are scheduled for today. On 01/15/2020 patient was seen and examined in the ICU she is intubated sedated maintained on mechanical ventilation she is receiving PEG tube feeding. Case was discussed with Dr. Kamara heat regulator. Patient is stable and is improving she is alert when her sedation is decreased however her O2 saturation drops with sedation holidays. There is no fever or chills. Temperature is 97.7 pulse 60 respirations 17 blood pressure 143/74 ABG reveals a pH of 7.46 pCO2 52 by mouth to 52 FiO2 at this time is 40% On 01/16/2020 patient was seen and examined in the ICU she is intubated sedated maintained on mechanical ventilation, FiO2 and PEEP are being decreased gradually arterial blood gases reveal a pH of 7.46 pCO2 51 CO2 54 FiO2 of 40% patient is febrile temperature is 98.1 blood pressure 130/76 she is not on any pressure support she is receiving PEG tube feeding. On 01/17/2020 patient was seen and examined in the ICU she is intubated sedated maintained on mechanical ventilation, vital exam reveals a temperature of 99.2 pulse 76 respiration 16 blood pressure 117/57 white blood count is 7.4 hemoglobin 13.9 platelets count 116 BUN is 30 creatinine 0.47 Arterial blood gas reveals a pH of 7.48 pCO2 49 by mouth to 90 on FiO2 of 60% On 01/18/2020 patient was seen and examined in the ICU she is intubated sedated maintained on mechanical ventilation, she had one hour sedation holiday this morning, patient was able to respond, she started having some cough and tachypnea and she was started back on sedation. Vital exam reveals a temperature of 98.6 pulse 82 respiration 20 blood pressure 118/61 white blood count is 6.5 hemoglobin 12.3 arterial blood gas revealed pH 7.42 pCO2 59 CO2 59 FiO2 50% On 01/19/2020 patient was seen and examined in the ICU she is intubated sedated maintained on mechanical ventilation she is receiving sedation holidays and is followed closely by pulmonary critical care and infectious disease patient is improving gradually On 01/20/2020 patient was seen and examined in the ICU she remains intubated and sedated she is receiving sedation holidays and is tolerating wel there is no fever or chills , she is maintained on IV antibiotics her ABG reveals a pH of 7.5 one pCO2 44 pO2 64 FiO2 is 40% she is improving gradually On 01/21/2020 patient was seen and examined in the ICU case was discussed in details with Dr. Kamara patient has not tolerated decreasing ventilation on multip le attempts and may need a tracheostomy placement. Temperature is 98.7 pulse 70 respirations 13 blood pressure 147/80 blood gases reveals a pH of 7.45 pCO2 53 by mouth to 55 on FiO2 of 40% On 01/22/2020 patient seen and examined in the ICU she is intubated sedated maintained on mechanical ventilation there is no fever or chills temperature is 98.4 pulse 70 respiration 15 blood pressure 108/58 arterial blood gases reveals pH of 7.44 pCO2 56 PaO2 of [address] 40% Dr Kamara is contacting her family to discuss further treatment steps including tracheostomy. Objective - Vital Signs Vital signs: Vital Signs Temp 98.4 F 01/22/20 12:00 Pulse 64 01/22/20 11:00 Resp 15 01/22/20 12:00 BP 108/58 01/22/20 12:00 Pulse Ox 97 01/22/20 12:00 Intake & Output 01/21/20 01/22/20 01/22/20 18:59 06:59 18:59 Intake Total 598 234 270 Output Total 890 1015 665 Balance -292 -781 -395 Weight 79.3 kg 77.7 kg Intake: IV 120 120 50 0.9% NS 120 120 50 Tube Feeding 418 114 190 Other 60 30 Output: Urine 890 1015 665 Other: Voiding Method Indwelling Catheter Indwelling Catheter Indwelling Catheter - Exam In general patient is intubated sedated maintained on mechanical ventilation HEENT head normocephalic and atraumatic Neck is supple no JVD no goiter no lymphadenopathy Chest exam reveals a few scattered crackles no wheezing Cardiac exam reveals regular heart sounds no gallops no murmurs Abdomen is soft nontender no organomegaly with normal bowel sounds Extremity exam reveals no edema no cyanosis or clubbing - Labs CBC & Chem 7: 01/23/20 04:23 01/23/20 04:23 Labs: Abnormal Lab Results - Last 24 Hours (Table) 01/21/20 01/21/20 01/21/20 Range/Units 05:24 16:30 20:49 Plt Count (150-450) k/uL ABG pCO2 (35-45) mmHg ABG pO2 (83-108) mmHg ABG HCO3 (21-25) mmol/L ABG Total CO2 (19-24) mmol/L ABG O2 Saturation (94-97) % Carbon Dioxide (22-30) mmol/L BUN (7-17) mg/dL Creatinine (0.52-1.04) mg/dL Glucose (74-99) mg/dL POC Glucose (mg/dL) 288 H 230 H (75-99) mg/dL Calcium (8.4-10.2) mg/dL Ferritin 441.2 H (10.0-291.0) ng/mL Creatine Kinase (30-135) U/L C-Reactive Protein (<10.0) mg/L Total Protein (6.3-8.2) g/dL Albumin (3.5-5.0) g/dL 01/21/20 01/22/20 01/22/20 Range/Units 23:58 03:52 04:02 Plt Count (150-450) k/uL ABG pCO2 (35-45) mmHg ABG pO2 (83-108) mmHg ABG HCO3 (21-25) mmol/L ABG Total CO2 (19-24) mmol/L ABG O2 Saturation (94-97) % Carbon Dioxide 36 H (22-30) mmol/L BUN 35 H (7-17) mg/dL Creatinine 0.47 L (0.52-1.04) mg/dL Glucose 123 H (74-99) mg/dL POC Glucose (mg/dL) 121 H 115 H (75-99) mg/dL Calcium 10.3 H (8.4-10.2) mg/dL Ferritin (10.0-291.0) ng/mL Creatine Kinase <20 L (30-135) U/L C-Reactive Protein 12.6 H (<10.0) mg/L Total Protein 5.8 L (6.3-8.2) g/dL Albumin 3.0 L (3.5-5.0) g/dL 01/22/20 01/22/20 01/22/20 Range/Units 04:02 04:47 08:45 Plt Count 116 L (150-450) k/uL ABG pCO2 56 H (35-45) mmHg ABG pO2 65 L (83-108) mmHg ABG HCO3 38 H (21-25) mmol/L ABG Total CO2 40 H (19-24) mmol/L ABG O2 Saturation 92.5 L (94-97) % Carbon Dioxide (22-30) mmol/L BUN (7-17) mg/dL Creatinine (0.52-1.04) mg/dL Glucose (74-99) mg/dL POC Glucose (mg/dL) 101 H (75-99) mg/dL Calcium (8.4-10.2) mg/dL Ferritin (10.0-291.0) ng/mL Creatine Kinase (30-135) U/L C-Reactive Protein (<10.0) mg/L Total Protein (6.3-8.2) g/dL Albumin (3.5-5.0) g/dL 01/22/20 Range/Units 11:40 Plt Count (150-450) k/uL ABG pCO2 (35-45) mmHg ABG pO2 (83-108) mmHg ABG HCO3 (21-25) mmol/L ABG Total CO2 (19-24) mmol/L ABG O2 Saturation (94-97) % Carbon Dioxide (22-30) mmol/L BUN (7-17) mg/dL Creatinine (0.52-1.04) mg/dL Glucose (74-99) mg/dL POC Glucose (mg/dL) 157 H (75-99) mg/dL Calcium (8.4-10.2) mg/dL Ferritin (10.0-291.0) ng/mL Creatine Kinase (30-135) U/L C-Reactive Protein (<10.0) mg/L Total Protein (6.3-8.2) g/dL Albumin (3.5-5.0) g/dL Assessment and Plan Plan: #1 pneumonia likely related to COVID 19 viral pneumonitis, followed by pulmonary and infectious disease, condition has worsened over night patient is currently in ICU maintained on mechanical ventilation #2 severe hypernatremia, on admission corrected #3 mental status changes likely related to hypernatremia and metabolic encephalopathy related to infection #4 acute hypoxic respiratory failure related to pneumonia, requiring oxygen at 4 L nasal cannula at this time #5 underlying history of hypertension #6 underlying history of COPD #7 underlying history of insulin-dependent diabetes mellitus, insulin dose adjusted today Levemir increased to 35 units daily #8 underlying history of stroke with right sided paralysis #9 chronic dysphagia and aspiration requiring PEG tube feeding #10 underlying history of atrial fibrillation maintained on Xarelto #11 vaginal bleeding, at this time will monitor closely, will check daily CBC, and monitor for amount of bleeding. Once her current illness has subsided, will investigate further with pelvic ultrasound and ICICLE MACHINE OPERATOR consult. #12 hyperkalemia, corrected At this time patient is into in the intensive care unit, no change in condition since yesterday She is intubated sedated maintained on mechanical ventilation Consultation for pulmonary and infectious disease requested in the emergency room and are following patient's No significant change in condition over the last few days awaiting possible weaning trials in the next 1-2 days Prognosis is guarded due to multiple underlying comorbid conditions
[2020-01-23 17:03] LABS: Glucose,Whole Blood 315 mg/dL (75-99)
[2020-01-23 17:32] LABS: Ferritin 474.7 ng/mL (10.0-291.0)
--- NOTE | 2020-01-23 18:08 | PN ---
PROGRESS NOTE DATE OF SERVICE: 01/23/2020 REASON FOR FOLLOWUP: Pneumonia. INTERVAL HISTORY: The patient is currently afebrile. The patient remains intubated on the vent, unable to be weaned off the vent. Hemodynamically stable, not on any pressor support. No diarrhea has been reported. PHYSICAL EXAMINATION: Blood pressure 102/62 with a pulse of 125, temperature 98.7. She is 90% on 40% FiO2. General description is an elderly female lying in bed in no distress. RESPIRATORY SYSTEM: Unlabored breathing. Clear to auscultation anteriorly. HEART: S1, S2. Regular rate and rhythm. ABDOMEN: Soft. No distention. LABS: Hemoglobin 13.9, white count 7.6, BUN of 36, creatinine 0.41. DIAGNOSTIC IMPRESSION AND PLAN: Patient with acute respiratory failure which is multifactorial in this patient who did have a component of pneumonia. Sputum has been Klebsiella. Currently covered with Rocephin; unfortunately unable to be weaned off the vent. Possible transfer to [facility]. Continue with supportive care. MMODL / IJN: [id number] /
[2020-01-23] MEDS: FERROUS SULFATE ORAL ELIXIR 300 MG/5 ML CUP PEG/G-TUBE SCH (20:46)
[2020-01-23] MEDS: RIVAROXABAN 15 MG TAB PO SCH (20:47)
[2020-01-23 20:53] LABS: Glucose,Whole Blood 308 mg/dL (75-99)
[2020-01-23] MEDS: INSULIN DETEMIR (LEVEMIR) 100 UNIT/ML SYR SQ SCH (20:56)
[2020-01-24 00:11] LABS: Glucose,Whole Blood 291 mg/dL (75-99)
[2020-01-24] MEDS: INSULIN ASPART (NovoLOG) 100 UNIT/ML VIAL SQ SCH ×7 (00:19→23:33)
[2020-01-24] MEDS: PROPOFOL 1,000 MG in EMPTY BAG 1 BAG IV SCH ×3 (03:59→18:52)
[2020-01-24] MEDS: NOREPINEPHRINE 4 MG in SODIUM CHLORIDE 0.9% 250 ML IV SCH ×2 (04:00→14:33)
[2020-01-24 04:15] LABS: Glucose,Whole Blood 164 mg/dL (75-99)
[2020-01-24 04:47] LABS: Basophils # (A) 0.1 k/uL (0-0.2); Basophils % (A) 1 %; Eosinophils # (A) 0.2 k/uL (0-0.7); Eosinophils % (A) 3 %; HCT 44.9 % (34.0-46.0); Hypochromasia Moderate; Lymphocytes # (A) 2.2 k/uL (1.0-4.8); Lymphocytes % (A) 25 %; MCH 31.1 pg (25.0-35.0); MCHC 31.1 g/dL (31.0-37.0); MCV 99.9 fL (80.0-100.0); Macrocytosis Slight; Mean Platelet Volume 10.1; Monocytes # (A) 0.6 k/uL (0-1.0); Monocytes % (A) 7 %; Neutrophils # (A) 5.5 k/uL (1.3-7.7); Neutrophils % (A) 63 %; Platelet Count 167 k/uL (150-450); RDW 14.7 % (11.5-15.5); WBC 8.7 k/uL (3.8-10.6)
[2020-01-24 05:07] LABS: ALT 18 U/L (4-34); AST 18 U/L (14-36); African American GFR (CKD) >90 (>60 ml/min/1.73 sqM); Albumin 3.1 g/dL (3.5-5.0); Alkaline Phosphatase 82 U/L (38-126); Anion Gap 2 mmol/L; Blood Urea Nitrogen 47 mg/dL (7-17); C Reactive Protein 12.2 mg/L (<10.0); Calcium 10.4 mg/dL (8.4-10.2); Carbon Dioxide 39 mmol/L (22-30); Chloride 99 mmol/L (98-107); Creatine Kinase <20 U/L (30-135); Glucose 179 mg/dL (74-99); LDH 489 U/L (313-618); Non-African American GFR(CKD) 86 (>60 ml/min/1.73 sqM); Potassium 3.3 mmol/L (3.5-5.1); Sodium 140 mmol/L (137-145); Total Bilirubin 0.3 mg/dL (0.2-1.3)
[2020-01-24 05:26] LABS: ABG Base Excess 14.1 mmol/L; ABG HCO3 38 mmol/L (21-25); ABG Oxygen Saturation 93.9 % (94-97); ABG PCO2 55 mmHg (35-45); ABG PH 7.45 (7.35-7.45); ABG PO2 69 mmHg (83-108); ABG TCO2 40 mmol/L (19-24); Allen Test Performed? Yes
[2020-01-24] MEDS: POTASSIUM BICARBONATE/CIT AC 20 MEQ TABLET.EFF NG-TUBE SCH ×4 (05:41→16:48)
[2020-01-24] MEDS: ALBUTEROL HFA INHALER INHALATION SCH ×4 (07:26→21:05)
--- NOTE | 2020-01-24 07:31 | XR ---
EXAMINATION TYPE: XR chest 1V portable DATE OF EXAM: 01/24/2020 COMPARISON: 01/23/2020 HISTORY: SOB, Follow Up FINDINGS: Endotracheal tube is unchanged in position. No change in bibasilar opacities. Stable appearance of the cardio-mediastinal structures at this time. Pleural effusion unchanged. IMPRESSION: 1. Stable portable chest. Clinical correlation and follow up until resolution is recommended.
[2020-01-24 08:00] LABS: Glucose,Whole Blood 120 mg/dL (75-99)
[2020-01-24] MEDS: PANTOPRAZOLE 40 MG/10 ML VIAL IV SCH (08:53)
[2020-01-24] MEDS: FUROSEMIDE 10 MG/ML 4 ML VIAL IV SCH ×2 (08:54→20:25)
[2020-01-24] MEDS: CHLORHEXIDINE GLUCONATE 15 ML CUP MUCOUS MEM SCH ×2 (08:55→20:26)
[2020-01-24] MEDS: ENOXAPARIN 40 MG/0.4 ML SYRINGE SQ SCH ×2 (08:55→20:25)
[2020-01-24] MEDS: amLODIPine 10 MG TAB PO SCH (08:56)
[2020-01-24] MEDS: LISINOPRIL 2.5 MG TAB PEG/G-TUBE SCH (08:56)
[2020-01-24] MEDS: ZINC SULFATE 220 MG CAP PO SCH (08:56)
[2020-01-24] MEDS: METOPROLOL TARTRATE 12.5 MG TAB PO SCH ×2 (08:56→17:21)
[2020-01-24] MEDS: CHOLECALCIFEROL 1,000 UNIT TAB PEG/G-TUBE SCH (08:56)
[2020-01-24] MEDS ORDERED: SODIUM CHLORIDE 0.9% 250 ML IV SCH (11:00)
[2020-01-24 11:13] LABS: Glucose,Whole Blood 125 mg/dL (75-99)
[2020-01-24 11:43] LABS: Ferritin 420.1 ng/mL (10.0-291.0)
--- NOTE | 2020-01-24 12:15 | P.PN ---
Subjective This is Mel Israel PA-C scribing on behalf of Dr. Arellano Chart review and observation only, Dr. Arellano did not examine the patient charu use the patient is Covid positive He did discuss the patient with the nurse HPI/interval history Patient is a 79-year-old female who was admitted with hypoxic respiratory failure requiring mechanical ventilator ablation and found to be coronavirus positive. Cardiology was initially consulted for bradycardia and therefore her metoprolol was stopped. We were asked to evaluate the patient again because she went into atrial fibrillation. Yesterday we started a low-dose of metoprolol and her rates have Improved however she has had some episodes of hypotension. She remains in atrial fibrillation with rates in the 90s. EXAMINATION Patient is afebrile, pulse in the 90s, respirations 17, blood pressure 121/79, oxygen saturation 94% on mechanical ventilation Patient was not examined, patient is Covid positive Patient intubated in the ICU REVIEW OF LABS, ECG WBC 8.7, hemoglobin 14.0, platelets 167, potassium 3.3, BUN 47, creatinine 0.61 IMPRESSION / ASSESSMENT: Acute hypoxic respiratory failure requiring mechanical ventilation Covid 19 pneumonia Atrial fibrillation with RVR, rates in the 90s COPD Hypertension Diabetes PLAN: Continue low-dose metoprolol, hold for blood pressure less than 90 mmHg systolic Cardiology will sign off at this time and see the patient on an as-needed basis Objective - Vital Signs Vital signs: Vital Signs Temp 98.3 F 01/24/20 12:00 Pulse 94 01/24/20 12:00 Resp 17 01/24/20 12:00 BP 121/79 01/24/20 12:00 Pulse Ox 94 L 01/24/20 12:00 Intake & Output 01/23/20 01/24/20 01/24/20 18:59 06:59 18:59 Intake Total 928.892 766 455.667 Output Total 855 895 440 Balance 73.892 -129 15.667 Weight 77.6 kg 79.1 kg Intake: IV 110 120 55 0.9% NS 110 120 55 Intake, IV Titration 212.892 100 112.667 Amount Propofol 1,000 mg In 162.892 100 62.667 Empty Bag 1 bag @ Titrate IV .Q0M [facility] Rx#: [id number] cefTRIAXone 2 gm In 50 50 Sodium Chloride 0.9% 50 ml @ 100 mls/hr IVPB Q24HR [facility] Rx#:[id number] Tube Feeding 456 456 228 Other 150 90 60 Output: Urine 855 895 440 Other: Voiding Method Indwelling Catheter Indwelling Catheter Indwelling Catheter - Labs CBC & Chem 7: 01/24/20 04:28 01/24/20 04:28 Labs: Abnormal Lab Results - Last 24 Hours (Table) 01/23/20 01/23/20 01/23/20 Range/Units 04:23 17:01 20:51 ABG pCO2 (35-45) mmHg ABG pO2 (83-108) mmHg ABG HCO3 (21-25) mmol/L ABG Total CO2 (19-24) mmol/L ABG O2 Saturation (94-97) % Potassium (3.5-5.1) mmol/L Carbon Dioxide (22-30) mmol/L BUN (7-17) mg/dL Glucose (74-99) mg/dL POC Glucose (mg/dL) 315 H 308 H (75-99) mg/dL Calcium (8.4-10.2) mg/dL Ferritin 474.7 H (10.0-291.0) ng/mL Creatine Kinase (30-135) U/L C-Reactive Protein (<10.0) mg/L Total Protein (6.3-8.2) g/dL Albumin (3.5-5.0) g/dL 01/24/20 01/24/20 01/24/20 Range/Units 00:08 04:15 04:28 ABG pCO2 (35-45) mmHg ABG pO2 (83-108) mmHg ABG HCO3 (21-25) mmol/L ABG Total CO2 (19-24) mmol/L ABG O2 Saturation (94-97) % Potassium 3.3 L (3.5-5.1) mmol/L Carbon Dioxide 39 H (22-30) mmol/L BUN 47 H (7-17) mg/dL Glucose 179 H (74-99) mg/dL POC Glucose (mg/dL) 291 H 164 H (75-99) mg/dL Calcium 10.4 H (8.4-10.2) mg/dL Ferritin 420.1 H (10.0-291.0) ng/mL Creatine Kinase <20 L (30-135) U/L C-Reactive Protein 12.2 H (<10.0) mg/L Total Protein 6.0 L (6.3-8.2) g/dL Albumin 3.1 L (3.5-5.0) g/dL 01/24/20 01/24/20 01/24/20 Range/Units 05:20 07:58 11:12 ABG pCO2 55 H (35-45) mmHg ABG pO2 69 L (83-108) mmHg ABG HCO3 38 H (21-25) mmol/L ABG Total CO2 40 H (19-24) mmol/L ABG O2 Saturation 93.9 L (94-97) % Potassium (3.5-5.1) mmol/L Carbon Dioxide (22-30) mmol/L BUN (7-17) mg/dL Glucose (74-99) mg/dL POC Glucose (mg/dL) 120 H 125 H (75-99) mg/dL Calcium (8.4-10.2) mg/dL Ferritin (10.0-291.0) ng/mL Creatine Kinase (30-135) U/L C-Reactive Protein (<10.0) mg/L Total Protein (6.3-8.2) g/dL Albumin (3.5-5.0) g/dL
--- NOTE | 2020-01-24 12:34 | P.PN ---
Subjective Progress Note Date: 01/24/20 CHIEF COMPLAINT: Tracheostomy HISTORY OF PRESENT ILLNESS: Patient remains intubated on mechanical ventilation in the ICU. She has been intubated since January 07, 2020. PHYSICAL EXAM: VITAL SIGNS: Reviewed. GENERAL: Well-developed in no acute distress. HEENT: No sclera icterus. Extraocular movements grossly intact. Moist buccal mucosa. Head is atraumatic, normocephalic. ABDOMEN: Soft. Nondistended. Nontender. NEUROLOGIC: Sedated on mechanical ventilation ASSESSMENT: 1. Acute hypoxic respiratory failure 2. COVID 19 PLAN: -Patient will be scheduled for Trach on 01/30/20 -Continue tube feedings until the morning of 01/30/20 -Hold Xarelto beginning 01/28/2020 Nurse practitioner note has been reviewed by physician. Signing provider agrees with the documented findings, assessment, and plan of care. Objective - Vital Signs Vital signs: Vital Signs Temp 98.3 F 01/24/20 12:00 Pulse 94 01/24/20 12:00 Resp 17 01/24/20 12:00 BP 121/79 01/24/20 12:00 Pulse Ox 94 L 01/24/20 12:00 Intake & Output 01/23/20 01/24/20 01/24/20 18:59 06:59 18:59 Intake Total 928.892 766 455.667 Output Total 855 895 440 Balance 73.892 -129 15.667 Weight 77.6 kg 79.1 kg Intake: IV 110 120 55 0.9% NS 110 120 55 Intake, IV Titration 212.892 100 112.667 Amount Propofol 1,000 mg In 162.892 100 62.667 Empty Bag 1 bag @ Titrate IV .Q0M [facility] Rx#: [id number] cefTRIAXone 2 gm In 50 50 Sodium Chloride 0.9% 50 ml @ 100 mls/hr IVPB Q24HR [facility] Rx#:[id number] Tube Feeding 456 456 228 Other 150 90 60 Output: Urine 855 895 440 Other: Voiding Method Indwelling Catheter Indwelling Catheter Indwelling Catheter - Labs CBC & Chem 7: 01/24/20 04:28 01/24/20 04:28 Labs: Abnormal Lab Results - Last 24 Hours (Table) 01/23/20 01/23/20 01/23/20 Range/Units 04:23 17:01 20:51 ABG pCO2 (35-45) mmHg ABG pO2 (83-108) mmHg ABG HCO3 (21-25) mmol/L ABG Total CO2 (19-24) mmol/L ABG O2 Saturation (94-97) % Potassium (3.5-5.1) mmol/L Carbon Dioxide (22-30) mmol/L BUN (7-17) mg/dL Glucose (74-99) mg/dL POC Glucose (mg/dL) 315 H 308 H (75-99) mg/dL Calcium (8.4-10.2) mg/dL Ferritin 474.7 H (10.0-291.0) ng/mL Creatine Kinase (30-135) U/L C-Reactive Protein (<10.0) mg/L Total Protein (6.3-8.2) g/dL Albumin (3.5-5.0) g/dL 01/24/20 01/24/20 01/24/20 Range/Units 00:08 04:15 04:28 ABG pCO2 (35-45) mmHg ABG pO2 (83-108) mmHg ABG HCO3 (21-25) mmol/L ABG Total CO2 (19-24) mmol/L ABG O2 Saturation (94-97) % Potassium 3.3 L (3.5-5.1) mmol/L Carbon Dioxide 39 H (22-30) mmol/L BUN 47 H (7-17) mg/dL Glucose 179 H (74-99) mg/dL POC Glucose (mg/dL) 291 H 164 H (75-99) mg/dL Calcium 10.4 H (8.4-10.2) mg/dL Ferritin 420.1 H (10.0-291.0) ng/mL Creatine Kinase <20 L (30-135) U/L C-Reactive Protein 12.2 H (<10.0) mg/L Total Protein 6.0 L (6.3-8.2) g/dL Albumin 3.1 L (3.5-5.0) g/dL 01/24/20 01/24/20 01/24/20 Range/Units 05:20 07:58 11:12 ABG pCO2 55 H (35-45) mmHg ABG pO2 69 L (83-108) mmHg ABG HCO3 38 H (21-25) mmol/L ABG Total CO2 40 H (19-24) mmol/L ABG O2 Saturation 93.9 L (94-97) % Potassium (3.5-5.1) mmol/L Carbon Dioxide (22-30) mmol/L BUN (7-17) mg/dL Glucose (74-99) mg/dL POC Glucose (mg/dL) 120 H 125 H (75-99) mg/dL Calcium (8.4-10.2) mg/dL Ferritin (10.0-291.0) ng/mL Creatine Kinase (30-135) U/L C-Reactive Protein (<10.0) mg/L Total Protein (6.3-8.2) g/dL Albumin (3.5-5.0) g/dL
--- NOTE | 2020-01-24 13:53 | P.PN ---
Subjective Progress Note Date: 01/24/20 Principal diagnosis: Acute hypoxic respiratory failure on ventilator COVID 19 pneumonia Aspiration pneumonia likely mixed bacterial and/or or gram-negative related Chronic right-sided weakness dysphagia and aphasia status post PEG tube COPD Insulin-dependent diabetes mellitus uncontrolled Hypertension hypertensive cardiovascular disease Chronic atrial fibrillation on anticoagulation off of his Xeralto, has been initiated on Lovenox twice a day 01/24/2020, patient seen eval examined overall no significant changes present patient remains on 8 of PEEP and 40% oxygen, peak where pressure R less than 30, patient remains on propofol 25 mics, intermittent the patient has been noted to have episodes of desaturation in which she climbed down and the spasm appears, not clear if she is having seizure-like episode intermittently will consult neurology, patient is scheduled for tracheostomy on the of this month 01/23/2020, patient seen eval reexamined during the rounds labs reviewed medications reviewed care plan discussed with the staff at length, also discussed with the primary service critical care time spent 35 minutes patient has a marginal saturation are 91-92%, she tolerated his spontaneous breathing trial but ended up and having very little pO2 she is still on significant amount of PEEP of 8 and FiO2 40%, with lowering of propofol the started getting getting into coughing episodes, patient has excessive amount of respiratory secretions which is light with suctioning oxygen saturation has improved though, we will stop the Solu-Medrol continue broad-spectrum antibiotics continue antihypertensive agents continue breathing treatments, 01/22/2020, patient seen and evaluated examined during the rounds labs reviewed medications reviewed care plan discussed with the staff at length patient has been evaluated by general surgery for tracheostomy, also by infectious disease services, patient remains very marginal for oxygenation with elevated CO2, sats are 87-88% with gurgling respiration patient required frequent suctioning and pulmonary toilet with that the saturation improved to 94-95%, to begin with patient does not have a strong cough to expectorate, she also has a stroke with right hemiparesis I feel that it is not safe to extubate the patient currently, continued to aggressively pulmonary toilet pending tracheostomy, white cell count is 13,000 CBC is stable WBC count is declining platelet count slightly low, arterial blood gases reviewed patient has compensated hypercapnic respiratory failure still on peep of 8 and 450 tidal volume, 40% oxygen, pO2 is just 65 patient is breathing 12-14 sed rate is 12, adequate urine output is p resent, tube feed is being tolerated well, patient remains afebrile, chest x-ray showed slight improvement in aeration of both lung ivy, patient remains on Rocephin for Klebsiella pneumonia, likely sedated with propofol 25 mics attempts to wean propofol has been unsuccessful resulting in bouts of coughing and desaturation 01/21/2020, patient seen eval examined during the rounds labs reviewed m edications reviewed, patient has excessive amount of respiratory secretions, which are 10 and clear, patient developed respiratory distress and desaturation, patient required frequent suctioning remains on 25 mics of propofol, remains on assist control mode rate of 14 tidal volume of 500 PEEP is 8, 40% oxygen, ABG from this morning noted there were done at the time and she was coughing and saturation were low, sats are now has improved to 95%, hemodynamic send data has been reviewed, patient can be weaned but cannot be safely extubated due to prior multiple comorbidities including 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 multiple strokes in the past we'll consult for tracheostomy sometime to be done early next week I have left messages for family awaiting for their advice in the meantime continue antibiotics labs reviewed medications reviewed radiographic studies reviewed critical care time 35 minutes 01/20/2020, patient seen eval examined during the rounds overall respiratory status remains stable patient remains on assist control rate of 16 breathing 16, tidal Volume is 500 PEEP is 8, patient was on CPAP pressure support most of the day yesterday propofol was off now has been resumed, oxygen saturation 94-95%, arterial blood gases reviewed this is stable of the respiratory alkalosis we'll decrease her ventilation, will put patient on CPAP of 5 and pressure support of 5 and obtain a blood gas will stop propofol as well continue diuresis, sputum came back for positive for Klebsiella likely healthcare associated pneumonia patient is on a IV Rocephin dose has been adjusted, Klebsiella appears to be sensitive to Rocephin, patient has adequate urine output to feed tolerated well, no fever is present, labs fairly within normal limit electrolytes including protection initially will be replaced critical care time spent 35 minutes 01/19/2020, patient seen eval examined during the rounds labs reviewed medications reviewed care plan discussed with the staff at length patient has been on 40% oxygen and PEEP of 8 saturation is 94%, she is off of propofol remains nonverbal and noncommunicative like baseline due to prior CVA and hemiparesis, cannot do maximal respiratory pressure, also some on the weaning parameters cannot be achieved due to stroke in the past, hemodynamic status stable heart rate is stable blood pressure is stable off of propofol for last 1 hour, labs reviewed white cell count is 6900, arterial blood gas from this morning reviewed after that patient receive Lasix 40 mg IV put out over 350 mL of urine right away, per day she missed 3.41 potassium replacement protocol, chest x-ray from earlier this morning reviewed basal small pleural effusion along with atelectasis seen with interstitial edema overall remains essentially unchanged 01/18/2020, patient seen and evaluated, remains on ventilator stable oxygenation is slightly low patient however remains on stable vent settings FiO2 50% tidal volume of 458 of PEEP, assist control mode breathing about 20-24, oxygen saturation is 92%, patient remains on propofol 25 mics gently sedated, hem odynamic status stable heart and blood pressure is stable off of vasopressors, patient is tolerating well. She is slightly low this morning given extra Lasix 40 mg IV now we'll keep the patient on negative balance, peak airway pressure 30 tolerating vent adjustment well him to lower down the FiO2 to 40% and start his spontaneous breathing trial of CPAP of 5 and pressure support of 10 as tolerated an hour to 45 minutes during which will DC the propofol, labs reviewed, patient is growing gram-negative rods in the sputum, she is adequately covered with Zosyn, chest x-ray reviewed stable lines and tubes, interstitial edema bilaterally small pleural effusion right lower lobe stable infiltrate, critical care time spent 35 minutes 01/17/2020, patient seen eval reexamined during the rounds labs reviewed medications reviewed radiographic studies reviewed as well, patient is still on propofol 25 mics she gets on comfortable if lowers it down we'll keep it for now, ventilator setting is stable, pO2 has improved can go down oxygen to 50 and subsequently to 40%, will keep PEEP 8, peak airway pressure on around 30, suggestive of fairly good compliance, we'll continue to diurese patient after 40 mg of extra Lasix yesterday without 1.5 L of urine repeat that again, to feed being tolerated very well no significant diarrhea has been noted respiratory secretions are minimal, critical care time 35 minutes 01/16/2020, patient seen eval examined during the rounds labs reviewed medications reviewed care plan discussed with the primary service, patient FiO2 is slightly up to percent otherwise PEEP remains 8, tidal volume is 500 with a rate of 16 ventilation appears to be fairly adequate oxygen however remains low review of the data revealed that patient is slightly even and positive in last 48 hours will benefit from some diuresis and given extra Lasix today continue to feed, continue sedation currently on propofol 25 mics, x-ray is not done today, arterial blood gas reviewed labs reviewed. Current care time spent 35 minutes 01/15/2020, patient seen eval examined during the rounds labs reviewed medications reviewed care plan discussed with the staff at length, patient remains on full ventilator support with suctioning and movement she desaturates however similar episodethis morning at the time of chest x-ray when she was repositioned suction and transient desaturation happens arterial blood gas was done at the same time however after that on 25 mics of propofol she has been stable saturation have been 98-99% plan is to come down the oxygen to 40% will keep monitor PPEP 10 and if oxygen remains stable on 40% will go down to 8 by and of the day, hemodynamic status stable blood pressure is stable and did not require IV hydralazine, heart rate is improve into high 50s and low 60s, patient is off of clonidine and Lopressor now remains off of vasopressors, tolerating the feed well, urine output is good arterial blood gases reviewed adequate ventilation chest x-ray reviewed overall essentially stable with small bilateral pleural effusion, overall plan is to come down to oxygen of 40% and PEEP of 5 and next 24-48 hours then will initiate spontaneous breathing trials keep ins and outs even are negative side continue current dose of Solu-Medrol and continue antibiotics critical care time 35 minutes 01/14/2020, patient seen eval reexamined during the rounds labs reviewed medications reviewed, chest x-ray reviewed as well, patient remains sedated with propofol drip 25 mics, she is bradycardic heart rate is 40-45 with slightly elevated blood pressure 160-170 breathing with vent rate was initially 20 have been reduced to 16, tidal volume is 450 keep is 15 has been lowered down to 10 saturation is 95-96% chest x-ray reviewed right lower lobe infiltrate and small effusions seen overall lung parenchyma and infiltrate appears stable and continued to improve, patient is tolerating every feed very well labs reviewed CBC within normal limits chemistry revealed ABG combination of metabolic and respiratory alkalosis ventilator has been adjusted Lasix have been lowered down to once a day some contribution from his steroids presents which will be reduced to 40 daily, patient will be observed how she does with lower PEEP, we will start hydralazine IV for blood pressure control, continue to hold Lopressor and also hold clonidine we will get cardiovascular services opinion consultation, patient has been tolerating tube feed very well respiratory secretions are m inimal adequate urine output has been present 01/13/2020, patient seen eval reexamined during the rounds labs reviewed medications reviewed radiographic studies reviewed as well patient FiO2 has been brought down to 60% she is on 15 of PEEP, her oxygen saturation 97% she is off of vasopressors, she is on 30 mics of propofol somewhat bradycardic will decrease of propofol to 20 mics, we'll continue to bring down the oxygen to 40% as tolerated in during next 24 hours, then will come on down and PEEP. Respiratory secretions are minimal to feed is tolerating well mental status not much change, developed bradycardia her beta blockers are being held, her chest x-ray showing small pleural effusion bilaterally and basal atelectasis and consolidation, tubes are stable, she remains on Solu-Medrol 40 every 12 hourly and Lovenox also 40 q 12, it appears that Solu-Medrol has been helping in improving and able to come down on oxygen, peak airway pressure 30, urine output has been adequate patient has some component of respiratory and metabolic alkalosis, we will lower down the Lasix to 20 mg daily also will decrease the tidal volume to 450, care time spent 35 minuteto 01/12/2020, patient seen and evaluated today care plan discussed with the nurse at length radiographic studies and lab studies reviewed, patient remains on assist control mode rate of 20 breathing about 24 26th of patient remains at PEEP of 10 FiO2 of 80% oxygen saturation are 90-94% within increase the PEEP to 15 as blood pressure is stable and titrated oxygen down to 70-60% next 24 hours chest x-ray reviewed continued to show same pattern but overall condition appears to improve to feed as tolerated very well, CBC is normal arterial blood gases history of hypercapnic hypoxic respiratory failure, bicarb is slightly going up the patient seems to be tolerating steroid well however sugars are higher side remains on insulin 01/11/2020, patient seen eval examined during the rounds labs reviewed medications reviewed radiographic studies reviewed as well patient remains sedated with 40 mics of propofol, she'll decrease it to 30 mics off of levo fed drip, patient did start some levo fed last night but now off, noted that FiO2 has been escalated to 100% and PEEP is down to 5, we'll increase PEEP back to 10 and titrated oxygen down as tolerated to bring it down to goal of 70% in next 24 hours slowly will decrease his sedation as well, 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, left-sided slight worsening has been noted with small left- sided pleural effusion likely fluid overload some of the fluid is present on the right side as well patient medications have been reviewed, patient is on Norvasc 10 mg along with Catapres and Ogestrel, patient has been started on IV steroids given hypoxia And a Difficult Reports from [place] That Steroids Have Been Helpful in Improving Oxygenation but at the Cost of Increasing Shedding Time However, Eisenmenger's Slightly Positive Today, Patient Has Received Lasix, ABG Reviewed pH Is 7.46 PCO2 Is 51 PO2 Is 58 That Is on PEEP of 5 and 100% Oxygen, Her LDH Is up to 926 Ferritin C-Reactive Protein and IL6 Levels Are Pending 01/10/2020, patient seen and evaluated examined during the rounds labs reviewed medications reviewed care plan discussed with RN, patient FiO2 has been down to 60% and peak airway pressures are stable, patient remains on assist control mode rate of 20 breathing about 25-28 oxygen saturation 93% she is 10, spontaneous tidal volume on about 400 500 range patient has been getting his spontaneous breathing trial and she is been sedated with propofol drip very small dose of levofed is still going to come patient is on broad-spectrum antibiotics to feed is going on patient is on half normal saline as well chest x-ray shows diffuse infiltrate stable lines 01/08/2020, patient seen and evaluated examined in ICU patient remains on curre nt ventilator with full ventilatory response be clear pressure slightly better than yesterday ranging from 30-32, patient is down to 70% now PEEP of 10 assist control is 20 breathing about 25-26 tidal volume is 400 this morning ABG reviewed ventilation is adequate slight hypoxia was noted but however sats at that time when the gas were done were 91-92% since that time patient has received 20 of Lasix and put out about 550 mL of urine and saturation is improved to 96%, patient is afebrile, patient would need a PICC line tomorrow, remains on propofol dose has been escalated today, tolerating to feed well, sugars are in low 200 range, LDH is 817 C-reactive protein is 25.2 on the they are showing downward trend her plan discussed with the staff at length will increase her Lasix to 20 mg daily will keep patient on 70% and PEEP of 10 and today attempt to titrate oxygen down again tomorrow chest x-ray showed some improved aviation compared to prior study stable ET tube, and seems to toleratin g Lasix well any significant compromise in hemodynamic status critical care time spent 35 minutes 01/07/2020, patient does live increase respiratory distress earlier this morning oxygen remains very poor saturation dropped down into 70s to 80s percent, pO2 was only 46 patient was intubated and placed in ICU where patient was seen eval reexamined, patient remains on levo fed drip on 5 mics, her hemodynamic is slightly better systolic blood pressure ranging from 100 210, patient is on propofol 20, vent setting include assist control of 20 tidal volume of 400, PEEP of 10, FiO2 have been lowered down to 90%, ABG and laboratory data data reviewed chest x-ray reviewed mild bilateral interstitial infiltrate consistent with viral pneumonia, patient is being started on Lovenox twice a day continued on tube feed will increase gentle hydration, blood glucose is running slightly high will increase the Levemir, critical care time spent 45 minutes 01/06/2020, patient seen and evaluated examined remains on nonrebreather mask still have problems associated with shortness of breath, care plan discussed with RN will continue current plan of care patient can be started on as needed breathing treatments will continue to gently diurese 01/05/2020, patient seen and evaluated examined remains on nonrebreather mask, nonverbal and noncommunicative essentially no significant change in neurological condition, she remained afebrile with stable hemodynamics her oxygen saturations improved to 96% on repeat nonrebreather mask 01/04/2020, patient laying on the bed on 100% nonrebreather mask and breathing is slightly short of breath, patient is on bronchodilator along with antibiotics, has been on Lasix as well, patient remains on Zosyn, labs reviewed white cell count is normal, labs reviewed, glucose is 342, BUN/creatinine is 25 and 0.7, stool for C. difficile is negative 01/02/2020, patient seen eval examined during the rounds patient has a rapid response this morning with the shortness of breath she however responded well with Lasix, Sands's catheter has been placed, shortness of breath have improved though, on 4 L saturation is 92% low-grade temperature of 99 is present, her chest x-ray assistive of the left lower lobe pneumonia and right perihilar infiltrate prominent lung markings likely fluid overload, Objective - Vital Signs Vital signs: Vital Signs Temp 98.3 F 01/24/20 12:00 Pulse 94 01/24/20 12:00 Resp 17 01/24/20 12:00 BP 121/79 01/24/20 12:00 Pulse Ox 94 L 01/24/20 12:00 Intake & Output 01/23/20 01/24/20 01/24/20 18:59 06:59 18:59 Intake Total 928.892 766 455.667 Output Total 855 895 440 Balance 73.892 -129 15.667 Weight 77.6 kg 79.1 kg Intake: IV 110 120 55 0.9% NS 110 120 55 Intake, IV Titration 212.892 100 112.667 Amount Propofol 1,000 mg In 162.892 100 62.667 Empty Bag 1 bag @ Titrate IV .Q0M [facility] Rx#: [id number] cefTRIAXone 2 gm In 50 50 Sodium Chloride 0.9% 50 ml @ 100 mls/hr IVPB Q24HR [facility] Rx#:[id number] Tube Feeding 456 456 228 Other 150 90 60 Output: Urine 855 895 440 Other: Voiding Method Indwelling Catheter Indwelling Catheter Indwelling Catheter - Exam - Neck Neck: no lymphadenopathy, no stridor - Respiratory Scattered rhonchi throughout, full ventilator support - Cardiovascular Regular rhythm and rate. S1 and S2 present, negative for S3, gallop or murmur. Trace edema to her bilateral lower extremities. - Gastrointestinal Abdomen soft and nondistended. - Integumentary Skin is warm and dry. No clubbing or cyanosis is present. Integumentary: no rash - Neurologic Recently off of propofol drip - Labs CBC & Chem 7: 01/24/20 04:28 01/24/20 12:15 Labs: Abnormal Lab Results - Last 24 Hours (Table) 01/23/20 01/23/20 01/23/20 Range/Units 04:23 17:01 20:51 ABG pCO2 (35-45) mmHg ABG pO2 (83-108) mmHg ABG HCO3 (21-25) mmol/L ABG Total CO2 (19-24) mmol/L ABG O2 Saturation (94-97) % Potassium (3.5-5.1) mmol/L Carbon Dioxide (22-30) mmol/L BUN (7-17) mg/dL Glucose (74-99) mg/dL POC Glucose (mg/dL) 315 H 308 H (75-99) mg/dL Calcium (8.4-10.2) mg/dL Ferritin 474.7 H (10.0-291.0) ng/mL Creatine Kinase (30-135) U/L C-Reactive Protein (<10.0) mg/L Total Protein (6.3-8.2) g/dL Albumin (3.5-5.0) g/dL 01/24/20 01/24/20 01/24/20 Range/Units 00:08 04:15 04:28 ABG pCO2 (35-45) mmHg ABG pO2 (83-108) mmHg ABG HCO3 (21-25) mmol/L ABG Total CO2 (19-24) mmol/L ABG O2 Saturation (94-97) % Potassium 3.3 L (3.5-5.1) mmol/L Carbon Dioxide 39 H (22-30) mmol/L BUN 47 H (7-17) mg/dL Glucose 179 H (74-99) mg/dL POC Glucose (mg/dL) 291 H 164 H (75-99) mg/dL Calcium 10.4 H (8.4-10.2) mg/dL Ferritin 420.1 H (10.0-291.0) ng/mL Creatine Kinase <20 L (30-135) U/L C-Reactive Protein 12.2 H (<10.0) mg/L Total Protein 6.0 L (6.3-8.2) g/dL Albumin 3.1 L (3.5-5.0) g/dL 01/24/20 01/24/20 01/24/20 Range/Units 05:20 07:58 11:12 ABG pCO2 55 H (35-45) mmHg ABG pO2 69 L (83-108) mmHg ABG HCO3 38 H (21-25) mmol/L ABG Total CO2 40 H (19-24) mmol/L ABG O2 Saturation 93.9 L (94-97) % Potassium (3.5-5.1) mmol/L Carbon Dioxide (22-30) mmol/L BUN (7-17) mg/dL Glucose (74-99) mg/dL POC Glucose (mg/dL) 120 H 125 H (75-99) mg/dL Calcium (8.4-10.2) mg/dL Ferritin (10.0-291.0) ng/mL Creatine Kinase (30-135) U/L C-Reactive Protein (<10.0) mg/L Total Protein (6.3-8.2) g/dL Albumin (3.5-5.0) g/dL 01/24/20 Range/Units 12:15 ABG pCO2 (35-45) mmHg ABG pO2 (83-108) mmHg ABG HCO3 (21-25) mmol/L ABG Total CO2 (19-24) mmol/L ABG O2 Saturation (94-97) % Potassium 3.3 L (3.5-5.1) mmol/L Carbon Dioxide (22-30) mmol/L BUN (7-17) mg/dL Glucose (74-99) mg/dL POC Glucose (mg/dL) (75-99) mg/dL Calcium (8.4-10.2) mg/dL Ferritin (10.0-291.0) ng/mL Creatine Kinase (30-135) U/L C-Reactive Protein (<10.0) mg/L Total Protein (6.3-8.2) g/dL Albumin (3.5-5.0) g/dL Assessment and Plan Assessment: Possible seizures Acute hypoxic respiratory failure on ventilator COVID 19 pneumonia with some improvement in oxygenation Gram-negative Klebsiella pneumonia, healthcare associated pneumonia likely Ventilator adjustment now patient is on 40 % oxygen but will be titrated oxygen down as tolerated, her peak airway pressures are stable high 20s , will keep PEEP to 8, will continue weaning trial as tolerated sedation holiday along with CPAP and pressure support control trial as tolerated Sinus bradycardia with hypertension, monitor off of Lopressor and clonidine, continue hydralazine IV as needed consult cardiovascular disease and associated patient Norvasc dose has been escalated patient is manifesting adequate hemodynamics heart rate is in 60s and blood pressure is adequate Continue I's and Os negative side monitor urine output, continue Lasix to 40 mg IV every 12 hours Bilateral small pleural effusion multifactorial process Chronic right-sided weakness dysphagia and aphasia status post PEG tube COPD Insulin-dependent diabetes mellitus uncontrolled Hypertension hypertensive cardiovascular disease, will decrease Norvasc to 5 mg Chronic atrial fibrillation on anticoagulation Lovenox Critical care time 35 minutes Plan: Patient at risk of respiratory failure again in the event of extubation, in order to extubate safely will need a tracheostomy also patient has excessive amount of respiratory secretions which require frequent suctioning, to begin with patient has multiple comorbidities including marisol-plegia a aphasia and strokes in the past, message has been left for family consult has been initiated with surgical service for tracheostomy, patient has been tentatively scheduled for tracheostomy on January 29 Neurology consultation Titrated oxygen down as as tolerated with slow lowering of PEEP, will be lowered subsequently as noted above Continue sedation holiday in his spontaneous breathing trials Will discuss with the family about further plan of care Anticoagulation. Lovenox twice a day Monitor off of his steroids Continue Norvasc other hemodynamic parameters as noted above Lowering of IV steroids for adjustment of insulin as needed Observe off of levo fed Gentle diuresis will keep her negative for another 24 hours Continue tube feed Ventilator adjustment Continue to check inflammatory labs for covid19 as needed Monitor sodium levels closely Continue respiratory and contact isolation Time with Patient: Greater than 30
--- NOTE | 2020-01-24 14:34 | P.PN ---
Subjective Progress Note Date: 01/23/20 Soledad Enriquez, is an 79-year-old female who resides at a intermediate at this time will was noticed to have worsening mental status and persistent cough, patient started having elevated temperature up to 101 at that point she was sent to [facility] emergency room she had testing for influenza A and B which were negative she also had an instant test for Covid 19 which was positive she was admitted to telemetry floor she was started on IV Zithromax pulmonary and infectious disease consultation were requested. Patient also had evidence of dehydration with hypernatremia elevated sodium level at 151. Patient has a known history of multiple medical problems including history of stroke with right sided paralysis, history of aspiration patient has a PEG tube for feeding, history of insulin-dependent diabetes mellitus, history of hypertension, history of hyperlipidemia, and history of paroxysmal atrial fibrillation. On presentation patient had a temperature of 101 pulse of 82 respiration 18 blood pressure 119/63 and pulse ox of 91% on 4 L nasal cannula. White blood count was 4.8 chest x-ray revealed evidence of left basilar opacity. On 12/30/2019 patient was seen and examined on the medical floor she is somnolent responsive in no apparent distress there is low-grade fever temperature is 100.8 there is no chills no headache or dizziness no chest pain no shortness of breath no cough no nausea or vomiting no abdominal pain no diarrhea and no burning was urination. Nurse noticed some vaginal bleeding, hemoglobin is stable at 15. Pulse ox is 96% on 4 L nasal cannula , On 12/31/2019 patient was seen and examined on the medical floor she is somnolent responsive in no apparent distress, her fever is subsiding temperatures this morning 99 pulse ox is 92% on 4 L nasal cannula, patient is denying any complaints at this time however, she does not seem to be listening much to the questions, and she goes back to sleep fast. White blood count today is normal at 4.1 hemoglobin is 15.2 potassium is elevated at 5.8 On 01/01/2020 patient was seen and examined on the medical floor she is more alert and responsive today there is no fever or chills no headache or dizziness no chest pain no shortness of breath no cough no nausea or vomiting no abdominal pain no diarrhea and no urinary symptoms, she is receiving feeding through PEG tube at night, glucose level is elevated again, will increase Lantus dose to 25 units at bedtime, and continue was inserted into sliding scale. Patient is receiving oxygen via nasal cannula at 4 L her pulse ox is 92% patient does not s eem to be in any distress her temperature heart rates respiration rate and blood pressure are in normal range white blood count is 3.8 potassium 4.8 On 01/02/2020 patient was seen and examined on the medical floor she is alert and responsive in no apparent distress. This morning patient had an episode of shortness of breath with decreased O2 sat duration A team was called patient received IV Lasix Sands catheter was inserted chest x-ray was done. Currently patient is doing better pulse ox is 92% on 4 L nasal cannula. On 01/03/2020 patient was seen and examined on the medical floor she is alert responsive in no apparent distress, her pulse ox is 92% on 6 L nasal cannula she is afebrile blood pressure is 123/87 chest x-ray done yesterday reveals left lower lobe infiltrate and right perihilar infiltrates. Without significant improvement from prior x-rays. On 01/04/2020 patient was seen and examined on the medical floor she is more alert and responsive today he denies any pain or discomfort, her pulse ox was lower today and she was switched to a nonrebreather mask On 01/05/2020 patient was seen and examined on the medical floor, she is alert and responsive at this time, she is tolerating tube feeding well, she denied any pain or discomfort. On 01/06/2020 patient was seen and examined on the medical floor, she is alert responsive in no apparent distress she is answering a few questions with yes or no or nodding her head she is tolerating tube feeding well she is denying any pain or discomfort at this time, her temperature is 98.1 blood pressure 135/75 pulse ox 90% on nonrebreather mask. On 01/07/2020 Patient was seen and examined in the ICU. Around 7:00 am this morning patient was on the floor she was having worsening shortness of breath and using accessory muscles she was on nonrebreather mask and her O2 sat duration was 88% Dr. Caba valve lapper was contacted patient was transferred to ICU she was intubated sedated and started on mechanical ventilation, she was also started on levophed for blood pressure support. On 01/08/2020 Patient was seen and examined in the ICU. She is intubated sedated maintained on mechanical ventilation, she is still on a small dose of Levophed. She is receiving tube feeding via PEG tube. Her ABG reveals a pH of 7.4 to pCO2 45 by mouth to 59 FiO2 is 70% On 01/09/2020 patient was seen and examined in the ICU she remains intubated sedated maintained on mechanical ventilation, she remains on a small dose of levophed for pressure support. ABG reveals a pH of 7.4 pCO2 47 PO2 77 with FiO2 of 70% her temperature is 90.8 pulse 69 respiration 27 blood pressure 112/70 On 01/10/2020 patient was seen and examined in the ICU she is intubated sedated maintained on mechanical ventilation, temperature is 97.9 pulse 62 respiration 20 blood pressure 121/73 ABG reveals pH of 7.39 pCO2 52 by mouth to 59 FiO2 is 60% no significant change in condition since yesterday patient is receiving tube feeding. She was not seen by critical care yesterday due to personal reasons per nurse. At this time will change consult for pulmonary and critical care to Dr. Perez. On 01/11/2020 Patient was seen and examined in the ICU she is intubated, sedated, maintained on mechanical ventilation. there is no fever or chills. ABs reveals PH 7.46 PCO2 51 PO2 58 FIO@ 100 % On 01/12/2020 patient was seen and examined in the ICU she is intubated sedated maintained on mechanical ventilation she is not on any pressure support there is no fever or chills she is receiving tube feeding. On 01/13/2020 patient was seen and examined in the ICU she is intubated sedated maintained on mechanical ventilation, she is maintained on 2 feeding glucose is elevated, dose of Levemir will be increased to 35 units daily, continue with sliding scale. ABG reveals pH 7.5 one pCO2 46 by mouth to 90 FiO2 of 60% On 01/14/2020 patient was seen and examined in the ICU she is intubated sedated maintained on mechanical ventilation she is also maintained on PEG tube feeding she had episodes of bradycardia cardiology were consulted and beta herminio were discontinued and patient was started on Norvasc patient also is having some minimal elevation in her liver enzymes pravastatin was discontinued. Otherwise no significant change in her condition patient remains on mechanical ventilation no weaning trials are scheduled for today. On 01/15/2020 patient was seen and examined in the ICU she is intubated sedated maintained on mechanical ventilation she is receiving PEG tube feeding. Case was discussed with Dr. Kamara valve lapper. Patient is stable and is improving she is alert when her sedation is decreased however her O2 saturation drops with sedation holidays. There is no fever or chills. Temperature is 97.7 pulse 60 respirations 17 blood pressure 143/74 ABG reveals a pH of 7.46 pCO2 52 by mouth to 52 FiO2 at this time is 40% On 01/16/2020 patient was seen and examined in the ICU she is intubated sedated maintained on mechanical ventilation, FiO2 and PEEP are being decreased gradually arterial blood gases reveal a pH of 7.46 pCO2 51 CO2 54 FiO2 of 40% patient is febrile temperature is 98.1 blood pressure 130/76 she is not on any pressure support she is receiving PEG tube feeding. On 01/17/2020 patient was seen and examined in the ICU she is intubated sedated maintained on mechanical ventilation, vital exam reveals a temperature of 99.2 pulse 76 respiration 16 blood pressure 117/57 white blood count is 7.4 hemoglobin 13.9 platelets count 116 BUN is 30 creatinine 0.47 Arterial blood gas reveals a pH of 7.48 pCO2 49 by mouth to 90 on FiO2 of 60% On 01/18/2020 patient was seen and examined in the ICU she is intubated sedated maintained on mechanical ventilation, she had one hour sedation holiday this morning, patient was able to respond, she started having some cough and tachypnea and she was started back on sedation. Vital exam reveals a temperature of 98.6 pulse 82 respiration 20 blood pressure 118/61 white blood count is 6.5 hemoglobin 12.3 arterial blood gas revealed pH 7.42 pCO2 59 CO2 59 FiO2 50% On 01/19/2020 patient was seen and examined in the ICU she is intubated sedated maintained on mechanical ventilation she is receiving sedation holidays and is followed closely by pulmonary critical care and infectious disease patient is improving gradually On 01/20/2020 patient was seen and examined in the ICU she remains intubated and sedated she is receiving sedation holidays and is tolerating wel there is no fever or chills , she is maintained on IV antibiotics her ABG reveals a pH of 7.5 one pCO2 44 pO2 64 FiO2 is 40% she is improving gradually On 01/21/2020 patient was seen and examined in the ICU case was discussed in details with Dr. Kamara patient has not tolerated decreasing ventilation on multip le attempts and may need a tracheostomy placement. Temperature is 98.7 pulse 70 respirations 13 blood pressure 147/80 blood gases reveals a pH of 7.45 pCO2 53 by mouth to 55 on FiO2 of 40% On 01/22/2020 patient seen and examined in the ICU she is intubated sedated maintained on mechanical ventilation there is no fever or chills temperature is 98.4 pulse 70 respiration 15 blood pressure 108/58 arterial blood gases reveals pH of 7.44 pCO2 56 PaO2 of [address] 40% Dr Kamara is contacting her family to discuss further treatment steps including tracheostomy. on 01/23/2020 patient was seen and examined in the emergency room, she remains intubated sedated maintained on mechanical ventilation vital exam reveals a temperature of 98.7 pulse 95 . Patient 13 blood pressure 102/62 arterial blood gas reveals a pH of 7.46 pCO2 56 pO2 57 FiO2 of 40% Objective - Vital Signs Vital signs: Vital Signs Temp 98.7 F 01/23/20 12:00 Pulse 125 H 01/23/20 12:00 Resp 13 01/23/20 12:00 BP 102/62 01/23/20 12:00 Pulse Ox 90 L 01/23/20 12:00 Intake & Output 01/22/20 01/23/20 01/23/20 18:59 06:59 18:59 Intake Total 742 599.767 497.776 Output Total 1140 1120 635 Balance -398 -520.233 -137.224 Weight 77.6 kg 77.6 kg Intake: IV 120 120 50 0.9% NS 120 120 50 Intake, IV Titration 183.767 137.776 Amount Propofol 1,000 mg In 183.767 87.776 Empty Bag 1 bag @ Titrate IV .Q0M [facility] Rx#: [id number] cefTRIAXone 2 gm In 50 Sodium Chloride 0.9% 50 ml @ 100 mls/hr IVPB Q24HR [facility] Rx#:[id number] Tube Feeding 532 266 190 Other 90 30 120 Output: Urine 1140 1120 635 Other: Voiding Method Indwelling Catheter Indwelling Catheter Indwelling Catheter - Exam In general patient is intubated sedated maintained on mechanical ventilation HEENT head normocephalic and atraumatic Neck is supple no JVD no goiter no lymphadenopathy Chest exam reveals a few scattered crackles no wheezing Cardiac exam reveals regular heart sounds no gallops no murmurs Abdomen is soft nontender no organomegaly with normal bowel sounds Extremity exam reveals no edema no cyanosis or clubbing - Labs CBC & Chem 7: 01/24/20 04:28 01/24/20 12:15 Labs: Abnormal Lab Results - Last 24 Hours (Table) 01/22/20 01/22/20 01/23/20 Range/Units 04:02 19:56 00:03 Plt Count (150-450) k/uL ABG pH (7.35-7.45) ABG pCO2 (35-45) mmHg ABG pO2 (83-108) mmHg ABG HCO3 (21-25) mmol/L ABG Total CO2 (19-24) mmol/L ABG O2 Saturation (94-97) % Carbon Dioxide (22-30) mmol/L BUN (7-17) mg/dL Creatinine (0.52-1.04) mg/dL Glucose (74-99) mg/dL POC Glucose (mg/dL) 239 H 177 H (75-99) mg/dL Calcium (8.4-10.2) mg/dL Ferritin 375.7 H (10.0-291.0) ng/mL Lactate Dehydrogenase (313-618) U/L Creatine Kinase (30-135) U/L C-Reactive Protein (<10.0) mg/L Albumin (3.5-5.0) g/dL 01/23/20 01/23/20 01/23/20 Range/Units 03:51 04:23 04:23 Plt Count 149 L (150-450) k/uL ABG pH (7.35-7.45) ABG pCO2 (35-45) mmHg ABG pO2 (83-108) mmHg ABG HCO3 (21-25) mmol/L ABG Total CO2 (19-24) mmol/L ABG O2 Saturation (94-97) % Carbon Dioxide 33 H (22-30) mmol/L BUN 36 H (7-17) mg/dL Creatinine 0.41 L (0.52-1.04) mg/dL Glucose 122 H (74-99) mg/dL POC Glucose (mg/dL) 115 H (75-99) mg/dL Calcium 10.4 H (8.4-10.2) mg/dL Ferritin (10.0-291.0) ng/mL Lactate Dehydrogenase 942 H (313-618) U/L Creatine Kinase <20 L (30-135) U/L C-Reactive Protein 13.7 H (<10.0) mg/L Albumin 3.1 L (3.5-5.0) g/dL 01/23/20 01/23/20 01/23/20 Range/Units 05:05 07:57 11:25 Plt Count (150-450) k/uL ABG pH 7.46 H (7.35-7.45) ABG pCO2 56 H (35-45) mmHg ABG pO2 57 L* (83-108) mmHg ABG HCO3 40 H* (21-25) mmol/L ABG Total CO2 41 H (19-24) mmol/L ABG O2 Saturation 89.7 L (94-97) % Carbon Dioxide (22-30) mmol/L BUN (7-17) mg/dL Creatinine (0.52-1.04) mg/dL Glucose (74-99) mg/dL POC Glucose (mg/dL) 104 H 188 H (75-99) mg/dL Calcium (8.4-10.2) mg/dL Ferritin (10.0-291.0) ng/mL Lactate Dehydrogenase (313-618) U/L Creatine Kinase (30-135) U/L C-Reactive Protein (<10.0) mg/L Albumin (3.5-5.0) g/dL Assessment and Plan Plan: #1 pneumonia likely related to COVID 19 viral pneumonitis, followed by pulmonary and infectious disease, condition has worsened over night patient is currently in ICU maintained on mechanical ventilation #2 severe hypernatremia, on admission corrected #3 mental status changes likely related to hypernatremia and metabolic e ncephalopathy related to infection #4 acute hypoxic respiratory failure related to pneumonia, requiring oxygen at 4 L nasal cannula at this time #5 underlying history of hypertension #6 underlying history of COPD #7 underlying history of insulin-dependent diabetes mellitus, insulin dose adjusted today Levemir increased to 35 units daily #8 underlying history of stroke with right sided paralysis #9 chronic dysphagia and aspiration requiring PEG tube feeding #10 underlying history of atrial fibrillation maintained on Xarelto #11 vaginal bleeding, at this time will monitor closely, will check daily CBC, and monitor for amount of bleeding. Once her current illness has subsided, will investigate further with pelvic ultrasound and F[employer]OR CARE SPECIALIST consult. #12 hyperkalemia, corrected At this time patient is into in the intensive care unit, no change in condition since yesterday She is intubated sedated maintained on mechanical ventilation Consultation for pulmonary and infectious disease requested in the emergency room and are following patient's No significant change in condition over the last few days awaiting possible weaning trials in the next 1-2 days Prognosis is guarded due to multiple underlying comorbid conditions
[2020-01-24 16:55] LABS: Glucose,Whole Blood 166 mg/dL (75-99)
--- NOTE | 2020-01-24 17:08 | PN ---
PROGRESS NOTE DATE OF SERVICE: 01/24/2020 REASON FOR FOLLOWUP: Pneumonia. INTERVAL HISTORY: The patient is currently afebrile. The patient is hemodynamically stable. FiO2 is currently at 40%. Tolerating her tube feeds. No diarrhea or any other questions were reported. PHYSICAL EXAMINATION: Blood pressure 114/65, pulse 83, temperature 98.3, she is 94% on 40% FiO2. General description is an elderly female, lying in bed in no distress. RESPIRATORY SYSTEM: Unlabored breathing, clear to auscultation anteriorly. HEART: S1, S2. Regular rate and rhythm. ABDOMEN: Soft, no distention. LABS: Hemoglobin is 14, white count 8.7, BUN of 47, creatinine 0.61. DIAGNOSTIC IMPRESSION AND PLAN: Patient with acute respiratory failure which is multifactorial. This patient did have a component of pneumonia. Sodium has been Klebsiella. Patient is covered with Rocephin, continue x-ray with no significant change. Monitor clinical course closely. MMODL / IJN: [id number] /
[2020-01-24 20:20] LABS: Glucose,Whole Blood 139 mg/dL (75-99)
[2020-01-24] MEDS: INSULIN DETEMIR (LEVEMIR) 100 UNIT/ML SYR SQ SCH (20:26)
[2020-01-24] MEDS: RIVAROXABAN 15 MG TAB PO SCH (20:27)
[2020-01-24] MEDS: FERROUS SULFATE ORAL ELIXIR 300 MG/5 ML CUP PEG/G-TUBE SCH (20:27)
[2020-01-24 22:59] LABS: Glucose,Whole Blood 158 mg/dL (75-99)
[2020-01-25] MEDS: PROPOFOL 1,000 MG in EMPTY BAG 1 BAG IV SCH ×3 (01:41→14:04)
[2020-01-25 04:32] LABS: Basophils % (A) 1 %; Eosinophils # (A) 0.2 k/uL (0-0.7); Eosinophils % (A) 4 %; HCT 41.2 % (34.0-46.0); HGB 13.6 gm/dL (11.4-16.0); Hypochromasia Slight; Lymphocytes # (A) 1.8 k/uL (1.0-4.8); Lymphocytes % (A) 27 %; MCHC 32.9 g/dL (31.0-37.0); MCV 97.4 fL (80.0-100.0); Mean Platelet Volume 10.8; Monocytes # (A) 0.4 k/uL (0-1.0); Monocytes % (A) 5 %; Neutrophils # (A) 4.3 k/uL (1.3-7.7); Neutrophils % (A) 63 %; Platelet Count 168 k/uL (150-450); RBC 4.23 m/uL (3.80-5.40); RDW 14.9 % (11.5-15.5); WBC 6.8 k/uL (3.8-10.6)
[2020-01-25 04:35] LABS: ALT 18 U/L (4-34); AST 23 U/L (14-36); African American GFR (CKD) >90 (>60 ml/min/1.73 sqM); Albumin 2.8 g/dL (3.5-5.0); Alkaline Phosphatase 76 U/L (38-126); Anion Gap 1 mmol/L; Blood Urea Nitrogen 40 mg/dL (7-17); C Reactive Protein 14.1 mg/L (<10.0); Calcium 9.6 mg/dL (8.4-10.2); Carbon Dioxide 39 mmol/L (22-30); Chloride 101 mmol/L (98-107); Glucose 134 mg/dL (74-99); LDH 557 U/L (313-618); Non-African American GFR(CKD) >90 (>60 ml/min/1.73 sqM); Potassium 3.5 mmol/L (3.5-5.1); Sodium 141 mmol/L (137-145); Total Bilirubin 0.4 mg/dL (0.2-1.3); Total Protein 5.6 g/dL (6.3-8.2)
[2020-01-25] MEDS: INSULIN ASPART (NovoLOG) 100 UNIT/ML VIAL SQ SCH ×4 (04:43→15:32)
[2020-01-25 05:19] LABS: ABG Base Excess 13.8 mmol/L; ABG HCO3 37 mmol/L (21-25); ABG Oxygen Saturation 94.3 % (94-97); ABG PCO2 52 mmHg (35-45); ABG PH 7.47 (7.35-7.45); ABG PO2 70 mmHg (83-108); ABG TCO2 39 mmol/L (19-24); Allen Test Performed? Yes
[2020-01-25] MEDS: POTASSIUM BICARBONATE/CIT AC 20 MEQ TABLET.EFF NG-TUBE SCH ×2 (05:42→06:44)
[2020-01-25] MEDS: METOPROLOL TARTRATE 12.5 MG TAB PO SCH ×2 (05:44→14:52)
[2020-01-25] MEDS: NOREPINEPHRINE 4 MG in SODIUM CHLORIDE 0.9% 250 ML IV SCH (05:44)
--- NOTE | 2020-01-25 06:24 | XR ---
EXAMINATION TYPE: XR chest 1V portable DATE OF EXAM: 01/25/2020 CLINICAL HISTORY: Difficulty breathing progress study. COVID pneumonia. TECHNIQUE: Single AP portable upright view of the chest is obtained. COMPARISON: Chest x-ray from one day earlier and older studies. FINDINGS: Stable endotracheal tube. Osseous structures are intact. Stable mild cardiomegaly with ath erosclerotic thoracic aorta. Persistent chronic parenchymal changes with bibasilar opacities. Upper l ungs remain clear without pneumothorax. IMPRESSION: Overall stable findings, mild cardiomegaly and chronic parenchymal changes with small b ilateral pleural effusions and associated bibasilar acute infiltrate and/or atelectasis are all redem onstrated.
--- NOTE | 2020-01-25 08:26 | EEG ---
ELECTROENCEPHALOGRAM REPORT DATE OF SERVICE: 01/24/2020 PREAMBLE: This is an 79-year-old female, admitted with COVID-19 with hypoxia. Patient has been on ventilator for over 25 days. Patient started having spasms that were noted to resemble seizure-like activity. Patient is currently sedated with propofol 25 mcg. EEG FINDINGS: This is a 21 channel portable EEG recorded in a patient utilizing 10-20 international system with referential and bipolar montages. The recording starts and continues with presence of mid diffuse moderate to high amplitude mixed frequencies of 6 Hz theta with 1-2 hertz delta activity seen in bihemispheric region. Background does not seem to be reactive to eye opening or closing. Photic driving response was not seen. Different stages of sleep were not seen. No focal or generalized epileptiform activity was seen. IMPRESSION: This is an abnormal EEG due to the background slowing of moderate degree. This is suggestive of generalized cerebral dysfunction, as can be seen with toxic metabolic encephalopathies or due to diffuse structural brain abnormality. No epileptiform activity was seen in the entire study. MMODL / IJN: [id number] /
[2020-01-25] MEDS: ALBUTEROL HFA INHALER INHALATION SCH ×3 (08:34→16:09)
[2020-01-25] MEDS: CHLORHEXIDINE GLUCONATE 15 ML CUP MUCOUS MEM SCH (09:02)
[2020-01-25] MEDS: ZINC SULFATE 220 MG CAP PO SCH (09:02)
[2020-01-25] MEDS: ENOXAPARIN 40 MG/0.4 ML SYRINGE SQ SCH (09:02)
[2020-01-25] MEDS: CHOLECALCIFEROL 1,000 UNIT TAB PEG/G-TUBE SCH (09:02)
[2020-01-25] MEDS: amLODIPine 10 MG TAB PO SCH (09:03)
[2020-01-25] MEDS: FUROSEMIDE 10 MG/ML 4 ML VIAL IV SCH (09:04)
[2020-01-25] MEDS: PANTOPRAZOLE 40 MG/10 ML VIAL IV SCH (09:33)
[2020-01-25 10:09] VITALS: BMI 32.1
[2020-01-25 11:08] LABS: Ferritin 372.8 ng/mL (10.0-291.0)
[2020-01-25 11:22] LABS: Glucose,Whole Blood 130 mg/dL (75-99)
--- NOTE | 2020-01-25 11:31 | P.PN ---
Progress Note - Text Progress Note Date: 01/25/20 The patient remains on the ventilator in the ICU. Her condition is unchanged. We will plan for elective tracheostomy on Thursday if the patient is stable.
[2020-01-25] MEDS ORDERED: LISINOPRIL 2.5 MG TAB PEG/G-TUBE SCH (12:00)
--- NOTE | 2020-01-25 12:11 | P.PN ---
Subjective Progress Note Date: 01/24/20 Soledad Enriquez, is an 79-year-old female [facility] time will was noticed to have worsening mental status and persistent cough, patient started having elevated temperature up to 101 at that point she was sent to [facility] emergency room she had testing for influenza A and B which were negative she also had an instant test for Covid 19 which was positive she was admitted to telemetry floor she was started on IV Zithromax pulmonary and infectious disease consultation were requested. Patient also had evidence of dehydration with hypernatremia elevated sodium level at 151. Patient has a known history of multiple medical problems including history of stroke with right sided paralysis, history of aspiration patient has a PEG tube for feeding, history of insulin-dependent diabetes mellitus, history of hypertension, history of hyperlipidemia, and history of paroxysmal atrial fibrillation. On presentation patient had a temperature of 101 pulse of 82 respiration 18 blood pressure 119/63 and pulse ox of 91% on 4 L nasal cannula. White blood count was 4.8 chest x-ray revealed evidence of left basilar opacity. On 12/30/2019 patient was seen and examined on the medical floor she is somnolent responsive in no apparent distress there is low-grade fever temperature is 100.8 there is no chills no headache or dizziness no chest pain no shortness of breath no cough no nausea or vomiting no abdominal pain no diarrhea and no burning was urination. Nurse noticed some vaginal bleeding, hemoglobin is stable at 15. Pulse ox is 96% on 4 L nasal cannula , On 12/31/2019 patient was seen and examined on the medical floor she is somnolent responsive in no apparent distress, her fever is subsiding temperatures this morning 99 pulse ox is 92% on 4 L nasal cannula, patient is denying any complaints at this time however, she does not seem to be listening much to the questions, and she goes back to sleep fast. White blood count today is normal at 4.1 hemoglobin is 15.2 potassium is elevated at 5.8 On 01/01/2020 patient was seen and examined on the medical floor she is more alert and responsive today there is no fever or chills no headache or dizziness no chest pain no shortness of breath no cough no nausea or vomiting no abdominal pain no diarrhea and no urinary symptoms, she is receiving feeding through PEG tube at night, glucose level is elevated again, will increase Lantus dose to 25 units at bedtime, and continue was inserted into sliding scale. Patient is receiving oxygen via nasal cannula at 4 L her pulse ox is 92% patient does not s eem to be in any distress her temperature heart rates respiration rate and blood pressure are in normal range white blood count is 3.8 potassium 4.8 On 01/02/2020 patient was seen and examined on the medical floor she is alert and responsive in no apparent distress. This morning patient had an episode of shortness of breath with decreased O2 sat duration A team was called patient received IV Lasix Sands catheter was inserted chest x-ray was done. Currently patient is doing better pulse ox is 92% on 4 L nasal cannula. On 01/03/2020 patient was seen and examined on the medical floor she is alert responsive in no apparent distress, her pulse ox is 92% on 6 L nasal cannula she is afebrile blood pressure is 123/87 chest x-ray done yesterday reveals left lower lobe infiltrate and right perihilar infiltrates. Without significant improvement from prior x-rays. On 01/04/2020 patient was seen and examined on the medical floor she is more alert and responsive today he denies any pain or discomfort, her pulse ox was lower today and she was switched to a nonrebreather mask On 01/05/2020 patient was seen and examined on the medical floor, she is alert and responsive at this time, she is tolerating tube feeding well, she denied any pain or discomfort. On 01/06/2020 patient was seen and examined on the medical floor, she is alert responsive in no apparent distress she is answering a few questions with yes or no or nodding her head she is tolerating tube feeding well she is denying any pain or discomfort at this time, her temperature is 98.1 blood pressure 135/75 pulse ox 90% on nonrebreather mask. On 01/07/2020 Patient was seen and examined in the ICU. Around 7:00 am this morning patient was on the floor she was having worsening shortness of breath and using accessory muscles she was on nonrebreather mask and her O2 sat duration was 88% Dr. Caba director ambulatory was contacted patient was transferred to ICU she was intubated sedated and started on mechanical ventilation, she was also started on levophed for blood pressure support. On 01/08/2020 Patient was seen and examined in the ICU. She is intubated sedated maintained on mechanical ventilation, she is still on a small dose of Levophed. She is receiving tube feeding via PEG tube. Her ABG reveals a pH of 7.4 to pCO2 45 by mouth to 59 FiO2 is 70% On 01/09/2020 patient was seen and examined in the ICU she remains intubated sedated maintained on mechanical ventilation, she remains on a small dose of levophed for pressure support. ABG reveals a pH of 7.4 pCO2 47 PO2 77 with FiO2 of 70% her temperature is 90.8 pulse 69 respiration 27 blood pressure 112/70 On 01/10/2020 patient was seen and examined in the ICU she is intubated sedated maintained on mechanical ventilation, temperature is 97.9 pulse 62 respiration 20 blood pressure 121/73 ABG reveals pH of 7.39 pCO2 52 by mouth to 59 FiO2 is 60% no significant change in condition since yesterday patient is receiving tube feeding. She was not seen by critical care yesterday due to personal reasons per nurse. At this time will change consult for pulmonary and critical care to Dr. Perez. On 01/11/2020 Patient was seen and examined in the ICU she is intubated, sedated, maintained on mechanical ventilation. there is no fever or chills. ABs reveals PH 7.46 PCO2 51 PO2 58 FIO@ 100 % On 01/12/2020 patient was seen and examined in the ICU she is intubated sedated maintained on mechanical ventilation she is not on any pressure support there is no fever or chills she is receiving tube feeding. On 01/13/2020 patient was seen and examined in the ICU she is intubated sedated maintained on mechanical ventilation, she is maintained on 2 feeding glucose is elevated, dose of Levemir will be increased to 35 units daily, continue with sliding scale. ABG reveals pH 7.5 one pCO2 46 by mouth to 90 FiO2 of 60% On 01/14/2020 patient was seen and examined in the ICU she is intubated sedated maintained on mechanical ventilation she is also maintained on PEG tube feeding she had episodes of bradycardia cardiology were consulted and beta herminio were discontinued and patient was started on Norvasc patient also is having some minimal elevation in her liver enzymes pravastatin was discontinued. Otherwise no significant change in her condition patient remains on mechanical ventilation no weaning trials are scheduled for today. On 01/15/2020 patient was seen and examined in the ICU she is intubated sedated maintained on mechanical ventilation she is receiving PEG tube feeding. Case was discussed with Dr. Kamara director ambulatory. Patient is stable and is improving she is alert when her sedation is decreased however her O2 saturation drops with sedation holidays. There is no fever or chills. Temperature is 97.7 pulse 60 respirations 17 blood pressure 143/74 ABG reveals a pH of 7.46 pCO2 52 by mouth to 52 FiO2 at this time is 40% On 01/16/2020 patient was seen and examined in the ICU she is intubated sedated maintained on mechanical ventilation, FiO2 and PEEP are being decreased gradually arterial blood gases reveal a pH of 7.46 pCO2 51 CO2 54 FiO2 of 40% patient is febrile temperature is 98.1 blood pressure 130/76 she is not on any pressure support she is receiving PEG tube feeding. On 01/17/2020 patient was seen and examined in the ICU she is intubated sedated maintained on mechanical ventilation, vital exam reveals a temperature of 99.2 pulse 76 respiration 16 blood pressure 117/57 white blood count is 7.4 hemoglobin 13.9 platelets count 116 BUN is 30 creatinine 0.47 Arterial blood gas reveals a pH of 7.48 pCO2 49 by mouth to 90 on FiO2 of 60% On 01/18/2020 patient was seen and examined in the ICU she is intubated sedated maintained on mechanical ventilation, she had one hour sedation holiday this morning, patient was able to respond, she started having some cough and tachypnea and she was started back on sedation. Vital exam reveals a temperature of 98.6 pulse 82 respiration 20 blood pressure 118/61 white blood count is 6.5 hemoglobin 12.3 arterial blood gas revealed pH 7.42 pCO2 59 CO2 59 FiO2 50% On 01/19/2020 patient was seen and examined in the ICU she is intubated sedated maintained on mechanical ventilation she is receiving sedation holidays and is followed closely by pulmonary critical care and infectious disease patient is improving gradually On 01/20/2020 patient was seen and examined in the ICU she remains intubated and sedated she is receiving sedation holidays and is tolerating wel there is no fever or chills , she is maintained on IV antibiotics her ABG reveals a pH of 7.5 one pCO2 44 pO2 64 FiO2 is 40% she is improving gradually On 01/21/2020 patient was seen and examined in the ICU case was discussed in details with Dr. Kamara patient has not tolerated decreasing ventilation on multip le attempts and may need a tracheostomy placement. Temperature is 98.7 pulse 70 respirations 13 blood pressure 147/80 blood gases reveals a pH of 7.45 pCO2 53 by mouth to 55 on FiO2 of 40% On 01/22/2020 patient seen and examined in the ICU she is intubated sedated maintained on mechanical ventilation there is no fever or chills temperature is 98.4 pulse 70 respiration 15 blood pressure 108/58 arterial blood gases reveals pH of 7.44 pCO2 56 PaO2 of [address] 40% Dr Kamara is contacting her family to discuss further treatment steps including tracheostomy. on 01/23/2020 patient was seen and examined in the emergency room, she remains intubated sedated maintained on mechanical ventilation vital exam reveals a temperature of 98.7 pulse 95 . Patient 13 blood pressure 102/62 arterial blood gas reveals a pH of 7.46 pCO2 56 pO2 57 FiO2 of 40% On 01/24/2020 patient was seen and examined in the ICU, she remains intubated sedated maintained on mechanical ventilation, vital exam reveals a temperature of 98.3 pulse 94 respirations 17 blood pressure 121/79 ABG reveals pH 7.45 pCO2 55 PaO2 69 FiO2 is 40% Objective - Vital Signs Vital signs: Vital Signs Temp 98.3 F 01/24/20 12:00 Pulse 86 01/24/20 14:00 Resp 13 01/24/20 14:00 BP 114/65 01/24/20 14:00 Pulse Ox 94 L 01/24/20 14:00 Intake & Output 01/23/20 01/24/20 01/24/20 18:59 06:59 18:59 Intake Total 928.892 766 801.667 Output Total 855 895 600 Balance 73.892 -129 201.667 Weight 77.6 kg 79.1 kg Intake: IV 110 120 325 0.9% NS 110 120 325 Intake, IV Titration 212.892 100 112.667 Amount Propofol 1,000 mg In 162.892 100 62.667 Empty Bag 1 bag @ Titrate IV .Q0M CAITYLN Rx#: [id number] cefTRIAXone 2 gm In 50 50 Sodium Chloride 0.9% 50 ml @ 100 mls/hr IVPB Q24HR CAITLYN Rx#:[id number] Tube Feeding 456 456 304 Other 150 90 60 Output: Urine 855 895 600 Other: Voiding Method Indwelling Catheter Indwelling Catheter Indwelling Catheter - Exam In general patient is intubated sedated maintained on mechanical ventilation HEENT head normocephalic and atraumatic Neck is supple no JVD no goiter no lymphadenopathy Chest exam reveals a few scattered crackles no wheezing Cardiac exam reveals regular heart sounds no gallops no murmurs Abdomen is soft nontender no organomegaly with normal bowel sounds Extremity exam reveals no edema no cyanosis or clubbing - Labs CBC & Chem 7: 01/24/20 04:28 01/24/20 12:15 Labs: Abnormal Lab Results - Last 24 Hours (Table) 01/23/20 01/23/20 01/23/20 Range/Units 04:23 17:01 20:51 ABG pCO2 (35-45) mmHg ABG pO2 (83-108) mmHg ABG HCO3 (21-25) mmol/L ABG Total CO2 (19-24) mmol/L ABG O2 Saturation (94-97) % Potassium (3.5-5.1) mmol/L Carbon Dioxide (22-30) mmol/L BUN (7-17) mg/dL Glucose (74-99) mg/dL POC Glucose (mg/dL) 315 H 308 H (75-99) mg/dL Calcium (8.4-10.2) mg/dL Ferritin 474.7 H (10.0-291.0) ng/mL Creatine Kinase (30-135) U/L C-Reactive Protein (<10.0) mg/L Total Protein (6.3-8.2) g/dL Albumin (3.5-5.0) g/dL 01/24/20 01/24/20 01/24/20 Range/Units 00:08 04:15 04:28 ABG pCO2 (35-45) mmHg ABG pO2 (83-108) mmHg ABG HCO3 (21-25) mmol/L ABG Total CO2 (19-24) mmol/L ABG O2 Saturation (94-97) % Potassium 3.3 L (3.5-5.1) mmol/L Carbon Dioxide 39 H (22-30) mmol/L BUN 47 H (7-17) mg/dL Glucose 179 H (74-99) mg/dL POC Glucose (mg/dL) 291 H 164 H (75-99) mg/dL Calcium 10.4 H (8.4-10.2) mg/dL Ferritin 420.1 H (10.0-291.0) ng/mL Creatine Kinase <20 L (30-135) U/L C-Reactive Protein 12.2 H (<10.0) mg/L Total Protein 6.0 L (6.3-8.2) g/dL Albumin 3.1 L (3.5-5.0) g/dL 01/24/20 01/24/20 01/24/20 Range/Units 05:20 07:58 11:12 ABG pCO2 55 H (35-45) mmHg ABG pO2 69 L (83-108) mmHg ABG HCO3 38 H (21-25) mmol/L ABG Total CO2 40 H (19-24) mmol/L ABG O2 Saturation 93.9 L (94-97) % Potassium (3.5-5.1) mmol/L Carbon Dioxide (22-30) mmol/L BUN (7-17) mg/dL Glucose (74-99) mg/dL POC Glucose (mg/dL) 120 H 125 H (75-99) mg/dL Calcium (8.4-10.2) mg/dL Ferritin (10.0-291.0) ng/mL Creatine Kinase (30-135) U/L C-Reactive Protein (<10.0) mg/L Total Protein (6.3-8.2) g/dL Albumin (3.5-5.0) g/dL 01/24/20 Range/Units 12:15 ABG pCO2 (35-45) mmHg ABG pO2 (83-108) mmHg ABG HCO3 (21-25) mmol/L ABG Total CO2 (19-24) mmol/L ABG O2 Saturation (94-97) % Potassium 3.3 L (3.5-5.1) mmol/L Carbon Dioxide (22-30) mmol/L BUN (7-17) mg/dL Glucose (74-99) mg/dL POC Glucose (mg/dL) (75-99) mg/dL Calcium (8.4-10.2) mg/dL Ferritin (10.0-291.0) ng/mL Creatine Kinase (30-135) U/L C-Reactive Protein (<10.0) mg/L Total Protein (6.3-8.2) g/dL Albumin (3.5-5.0) g/dL Assessment and Plan Plan: #1 pneumonia likely related to COVID 19 viral pneumonitis, followed by pulmonary and infectious disease, condition has worsened over night patient is currently in ICU maintained on mechanical ventilation #2 severe hypernatremia, on admission corrected #3 mental status changes likely related to hypernatremia and metabolic e ncephalopathy related to infection #4 acute hypoxic respiratory failure related to pneumonia, requiring oxygen at 4 L nasal cannula at this time #5 underlying history of hypertension #6 underlying history of COPD #7 underlying history of insulin-dependent diabetes mellitus, insulin dose adjusted today Levemir increased to 35 units daily #8 underlying history of stroke with right sided paralysis #9 chronic dysphagia and aspiration requiring PEG tube feeding #10 underlying history of atrial fibrillation maintained on Xarelto #11 vaginal bleeding, at this time will monitor closely, will check daily CBC, and monitor for amount of bleeding. Once her current illness has subsided, will investigate further with pelvic ultrasound and TYING MACHINE OPERATOR consult. #12 hyperkalemia, corrected At this time patient is into in the intensive care unit, no change in condition since yesterday She is intubated sedated maintained on mechanical ventilation Consultation for pulmonary and infectious disease requested in the emergency room and are following patient's No significant change in condition over the last few days awaiting possible weaning trials in the next 1-2 days Prognosis is guarded due to multiple underlying comorbid conditions
--- NOTE | 2020-01-25 15:05 | P.PN ---
Subjective Progress Note Date: 01/25/20 Principal diagnosis: Acute hypoxic respiratory failure on ventilator COVID 19 pneumonia Aspiration pneumonia likely mixed bacterial and/or or gram-negative related Chronic right-sided weakness dysphagia and aphasia status post PEG tube COPD Insulin-dependent diabetes mellitus uncontrolled Hypertension hypertensive cardiovascular disease Chronic atrial fibrillation on anticoagulation off of his Xeralto, has been initiated on Lovenox twice a day 01/25/2020, patient seen eval examined during the rounds patient had intermittent episode in which blood pressure dropped down urine output has been low BUN climbed up so as the bicarb, patient appears to be volume depleted she has received a bolus overnight with that blood pressure came up now blood pressure is stable but she is in A. fib with RVR rate is 100 to 110 sometimes go up to 120-130, this appears to be due to volume depleted state and dehydration, we'll give another fluid bolus patient can resume on beta herminio, continue to hold Lasix for now agree with transfer to slect specialty 01/24/2020, patient seen eval examined overall no significant changes present patient remains on 8 of PEEP and 40% oxygen, peak where pressure R less than 30, patient remains on propofol 25 mics, intermittent the patient has been noted to have episodes of desaturation in which she climbed down and the spasm appears, not clear if she is having seizure-like episode intermittently will consult neurology, patient is scheduled for tracheostomy on the of this month 01/23/2020, patient seen eval reexamined during the rounds labs reviewed medications reviewed care plan discussed with the staff at length, also discussed with the primary service critical care time spent 35 minutes patient has a marginal saturation are 91-92%, she tolerated his spontaneous breathing trial but ended up and having very little pO2 she is still on significant amount of PEEP of 8 and FiO2 40%, with lowering of propofol the started getting getting into coughing episodes, patient has excessive amount of respiratory secretions which is light with suctioning oxygen saturation has improved though, we will stop the Solu-Medrol continue broad-spectrum antibiotics continue antihypertensive agents continue breathing treatments, 01/22/2020, patient seen and evaluated examined during the rounds labs reviewed medications reviewed care plan discussed with the staff at length patient has been evaluated by general surgery for tracheostomy, also by infectious disease services, patient remains very marginal for oxygenation with elevated CO2, sats are 87-88% with gurgling respiration patient required frequent suctioning and pulmonary toilet with that the saturation improved to 94-95%, to begin with patient does not have a strong cough to expectorate, she also has a stroke with right hemiparesis I feel that it is not safe to extubate the patient currently, continued to aggressively pulmonary toilet pending tracheostomy, white cell coun t is 13,000 CBC is stable WBC count is declining platelet count slightly low, arterial blood gases reviewed patient has compensated hypercapnic respiratory failure still on peep of 8 and 450 tidal volume, 40% oxygen, pO2 is just 65 patient is breathing 12-14 sed rate is 12, adequate urine output is present, tube feed is being tolerated well, patient remains afebrile, chest x-ray showed slight improvement in aeration of both lung ivy, patient remains on Rocephin for Klebsiella pneumonia, likely sedated with propofol 25 mics attempts to wean propofol has been unsuccessful resulting in bouts of coughing and desaturation 01/21/2020, patient seen eval examined during the rounds labs reviewed medications reviewed, patient has excessive amount of respiratory secretions, which are 10 and clear, patient developed respiratory distress and desaturation, patient required frequent suctioning remains on 25 mics of propofol, remains on assist control mode rate of 14 tidal volume of 500 PEEP is 8, 40% oxygen, ABG from this morning noted there were done at the time and she was coughing and saturation were low, sats are now has improved to 95%, hemodynamic send data has been reviewed, patient can be weaned but cannot be safely extubated due to prior multiple comorbidities including 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 multiple strokes in the past we'll consult for tracheostomy sometime to be done early next week I have left messages for family awaiting for their advice in the meantime continue antibiotics labs reviewed medications reviewed radiographic studies reviewed critical care time 35 minutes 01/20/2020, patient seen eval examined during the rounds overall respiratory status remains stable patient remains on assist control rate of 16 breathing 16, tidal Volume is 500 PEEP is 8, patient was on CPAP pressure support most of the day yesterday propofol was off now has been resumed, oxygen saturation 94-95%, arterial blood gases reviewed this is stable of the respiratory alkalosis we'll decrease her ventilation, will put patient on CPAP of 5 and pressure support of 5 and obtain a blood gas will stop propofol as well continue diuresis, sputum came back for positive for Klebsiella likely healthcare associated pneumonia patient is on a IV Rocephin dose has been adjusted, Klebsiella appears to be sensitive to Rocephin, patient has adequate urine output to feed tolerated well, no fever is present, labs fairly within normal limit electrolytes including protection initially will be replaced critical care time spent 35 minutes 01/19/2020, patient seen eval examined during the rounds labs reviewed medications reviewed care plan discussed with the staff at length patient has been on 40% oxygen and PEEP of 8 saturation is 94%, she is off of propofol remains nonverbal and noncommunicative like baseline due to prior CVA and hemiparesis, cannot do maximal respiratory pressure, also some on the weaning parameters cannot be achieved due to stroke in the past, hemodynamic status stable heart rate is stable blood pressure is stable off of propofol for last 1 hour, labs reviewed white cell count is 6900, arterial blood gas from this morning reviewed after that patient receive Lasix 40 mg IV put out over 350 mL of urine right away, per day she missed 3.41 potassium replacement protocol, chest x-ray from earlier this morning reviewed basal small pleural effusion along with atelectasis seen with interstitial edema overall remains essentially unchanged 01/18/2020, patient seen and evaluated, remains on ventilator stable oxygenation is slightly low patient however remains on stable vent settings FiO2 50% tidal volume of 458 of PEEP, assist control mode breathing about 20-24, oxygen saturation is 92%, patient remains on propofol 25 mics gently sedated, he modynamic status stable heart and blood pressure is stable off of vasopressors, patient is tolerating well. She is slightly low this morning given extra Lasix 40 mg IV now we'll keep the patient on negative balance, peak airway pressure 30 tolerating vent adjustment well him to lower down the FiO2 to 40% and start his spontaneous breathing trial of CPAP of 5 and pressure support of 10 as tolerated an hour to 45 minutes during which will DC the propofol, labs reviewed, patient is growing gram-negative rods in the sputum, she is adequately covered with Zosyn, chest x-ray reviewed stable lines and tubes, interstitial edema bilaterally small pleural effusion right lower lobe stable infiltrate, critical care time spent 35 minutes 01/17/2020, patient seen eval reexamined during the rounds labs reviewed medications reviewed radiographic studies reviewed as well, patient is still on propofol 25 mics she gets on comfortable if lowers it down we'll keep it for now, ventilator setting is stable, pO2 has improved can go down oxygen to 50 and subsequently to 40%, will keep PEEP 8, peak airway pressure on around 30, suggestive of fairly good compliance, we'll continue to diurese patient after 40 mg of extra Lasix yesterday without 1.5 L of urine repeat that again, to feed being tolerated very well no significant diarrhea has been noted respiratory secretions are minimal, critical care time 35 minutes 01/16/2020, patient seen eval examined during the rounds labs reviewed medications reviewed care plan discussed with the primary service, patient FiO2 is slightly up to percent otherwise PEEP remains 8, tidal volume is 500 with a rate of 16 ventilation appears to be fairly adequate oxygen however remains low review of the data revealed that patient is slightly even and positive in last 48 hours will benefit from some diuresis and given extra Lasix today continue to feed, continue sedation currently on propofol 25 mics, x-ray is not done today, arterial blood gas reviewed labs reviewed. Current care time spent 35 minutes 01/15/2020, patient seen eval examined during the rounds labs reviewed medications reviewed care plan discussed with the staff at length, patient remains on full ventilator support with suctioning and movement she desaturates however similar episodethis morning at the time of chest x-ray when she was repositioned suction and transient desaturation happens arterial blood gas was done at the same time however after that on 25 mics of propofol she has been stable saturation have been 98-99% plan is to come down the oxygen to 40% will keep monitor PPEP 10 and if oxygen remains stable on 40% will go down to 8 by and of the day, hemodynamic status stable blood pressure is stable and did not require IV hydralazine, heart rate is improve into high 50s and low 60s, patient is off of clonidine and Lopressor now remains off of vasopressors, tolerating the feed well, urine output is good arterial blood gases reviewed adequate ventilation chest x-ray reviewed overall essentially stable with small bilateral pleural effusion, overall plan is to come down to oxygen of 40% and PEEP of 5 and next 24-48 hours then will initiate spontaneous breathing trials keep ins and outs even are negative side continue current dose of Solu-Medrol and continue antibiotics critical care time 35 minutes 01/14/2020, patient seen eval reexamined during the rounds labs reviewed medications reviewed, chest x-ray reviewed as well, patient remains sedated with propofol drip 25 mics, she is bradycardic heart rate is 40-45 with slightly elevated blood pressure 160-170 breathing with vent rate was initially 20 have been reduced to 16, tidal volume is 450 keep is 15 has been lowered down to 10 saturation is 95-96% chest x-ray reviewed right lower lobe infiltrate and small effusions seen overall lung parenchyma and infiltrate appears stable and continued to improve, patient is tolerating every feed very well labs reviewed CBC within normal limits chemistry revealed ABG combination of metabolic and respiratory alkalosis ventilator has been adjusted Lasix have been lowered down to once a day some contribution from his steroids presents which will be reduced to 40 daily, patient will be observed how she does with lower PEEP, we will start hydralazine IV for blood pressure control, continue to hold Lopressor and also hold clonidine we will get cardiovascular services opinion consultation, patient has been tolerating tube feed very well respiratory secretions are minimal adequate urine output has been present 01/13/2020, patient seen eval reexamined during the rounds labs reviewed medications reviewed radiographic studies reviewed as well patient FiO2 has been brought down to 60% she is on 15 of PEEP, her oxygen saturation 97% she is off of vasopressors, she is on 30 mics of propofol somewhat bradycardic will decrease of propofol to 20 mics, we'll continue to bring down the oxygen to 40% as tolerated in during next 24 hours, then will come on down and PEEP. Respiratory secretions are minimal to feed is tolerating well mental status not much change, developed bradycardia her beta blockers are being held, her chest x-ray showing small pleural effusion bilaterally and basal atelectasis and consolidation, tubes are stable, she remains on Solu-Medrol 40 every 12 hourly and Lovenox also 40 q 12, it appears that Solu-Medrol has been helping in improving and able to come down on oxygen, peak airway pressure 30, urine output has been adequate patient has some component of respiratory and metabolic alkalosis, we will lower down the Lasix to 20 mg daily also will decrease the tidal volume to 450, care time spent 35 minuteto 01/12/2020, patient seen and evaluated today care plan discussed with the nurse at length radiographic studies and lab studies reviewed, patient remains on assist control mode rate of 20 breathing about 24 of patient remains at PEEP of 10 FiO2 of 80% oxygen saturation are 90-94% within increase the PEEP to 15 as blood pressure is stable and titrated oxygen down to 70-60% next 24 hours chest x-ray reviewed continued to show same pattern but overall condition appears to improve to feed as tolerated very well, CBC is normal arterial blood gases history of hypercapnic hypoxic respiratory failure, bicarb is slightly going up the patient seems to be tolerating steroid well however sugars are higher side remains on insulin 01/11/2020, patient seen eval examined during the rounds labs reviewed medications reviewed radiographic studies reviewed as well patient remains sedated with 40 mics of propofol, she'll decrease it to 30 mics off of levo fed drip, patient did start some levo fed last night but now off, noted that FiO2 has been escalated to 100% and PEEP is down to 5, we'll increase PEEP back to 10 and titrated oxygen down as tolerated to bring it down to goal of 70% in next 24 hours slowly will decrease his sedation as well, 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, left-sided slight worsening has been noted with small left- sided pleural effusion likely fluid overload some of the fluid is present on the right side as well patient medications have been reviewed, patient is on Norvasc 10 mg along with Catapres and Ogestrel, patient has been started on IV steroids given hypoxia And a Difficult Reports from [place] That Steroids Have Been Helpful in Improving Oxygenation but at the Cost of Increasing Shedding Time However, Eisenmenger's Slightly Positive Today, Patient Has Received Lasix, ABG Reviewed pH Is 7.46 PCO2 Is 51 PO2 Is 58 That Is on PEEP of 5 and 100% Oxygen, Her LDH Is up to 926 Ferritin C-Reactive Protein and IL6 Levels Are Pending 01/10/2020, patient seen and evaluated examined during the rounds labs reviewed medications reviewed care plan discussed with RN, patient FiO2 has been down to 60% and peak airway pressures are stable, patient remains on assist control mode rate of 20 breathing about 25-28 oxygen saturation 93% she is 10, spontaneous tidal volume on about 400 500 range patient has been getting his spontaneous breathing trial and she is been sedated with propofol drip very small dose of levofed is still going to come patient is on broad-spectrum antibiotics to feed is going on patient is on half normal saline as well chest x-ray shows diffuse infiltrate stable lines 01/08/2020, patient seen and evaluated examined in ICU patient remains on curr ent ventilator with full ventilatory response be clear pressure slightly better than yesterday ranging from 30-32, patient is down to 70% now PEEP of 10 assist control is 20 breathing about 25-26 tidal volume is 400 this morning ABG reviewed ventilation is adequate slight hypoxia was noted but however sats at that time when the gas were done were 91-92% since that time patient has received 20 of Lasix and put out about 550 mL of urine and saturation is improved to 96%, patient is afebrile, patient would need a PICC line tomorrow, remains on propofol dose has been escalated today, tolerating to feed well, sugars are in low 200 range, LDH is 817 C-reactive protein is 25.2 on the they are showing downward trend her plan discussed with the staff at length will increase her Lasix to 20 mg daily will keep patient on 70% and PEEP of 10 and today attempt to titrate oxygen down again tomorrow chest x-ray showed some improved aviation compared to prior study stable ET tube, and seems to tolerati ng Lasix well any significant compromise in hemodynamic status critical care time spent 35 minutes 01/07/2020, patient does live increase respiratory distress earlier this morning oxygen remains very poor saturation dropped down into 70s to 80s percent, pO2 was only 46 patient was intubated and placed in ICU where patient was seen eval reexamined, patient remains on levo fed drip on 5 mics, her hemodynamic is slightly better systolic blood pressure ranging from 100 210, patient is on propofol 20, vent setting include assist control of 20 tidal volume of 400, PEEP of 10, FiO2 have been lowered down to 90%, ABG and laboratory data data reviewed chest x-ray reviewed mild bilateral interstitial infiltrate consistent with viral pneumonia, patient is being started on Lovenox twice a day continued on tube feed will increase gentle hydration, blood glucose is running slightly high will increase the Levemir, critical care time spent 45 minutes 01/06/2020, patient seen and evaluated examined remains on nonrebreather mask still have problems associated with shortness of breath, care plan discussed with RN will continue current plan of care patient can be started on as needed breathing treatments will continue to gently diurese 01/05/2020, patient seen and evaluated examined remains on nonrebreather mask, nonverbal and noncommunicative essentially no significant change in neurological condition, she remained afebrile with stable hemodynamics her oxygen saturations improved to 96% on repeat nonrebreather mask 01/04/2020, patient laying on the bed on 100% nonrebreather mask and breathing is slightly short of breath, patient is on bronchodilator along with antibiotics, has been on Lasix as well, patient remains on Zosyn, labs reviewed white cell count is normal, labs reviewed, glucose is 342, BUN/creatinine is 25 and 0.7, stool for C. difficile is negative 01/02/2020, patient seen eval examined during the rounds patient has a rapid response this morning with the shortness of breath she however responded well with Lasix, Sands's catheter has been placed, shortness of breath have improved though, on 4 L saturation is 92% low-grade temperature of 99 is present, her chest x-ray assistive of the left lower lobe pneumonia and right perihilar infiltrate prominent lung markings likely fluid overload, Objective - Vital Signs Vital signs: Vital Signs Temp 98.1 F 01/25/20 12:00 Pulse 105 H 01/25/20 14:00 Resp 14 01/25/20 14:00 BP 92/60 01/25/20 14:00 Pulse Ox 95 01/25/20 14:00 Intake & Output 01/24/20 01/25/20 01/25/20 18:59 06:59 18:59 Intake Total 1123.667 778.523 681.934 Output Total 800 865 440 Balance 323.667 -86.477 241.934 Weight 79.8 kg 79.8 kg Intake: IV 365 120 90 0.9% NS 365 120 90 Intake, IV Titration 212.667 120.523 173.934 Amount Propofol 1,000 mg In 162.667 120.523 73.934 Empty Bag 1 bag @ Titrate IV .Q0M [facility] Rx#: [id number] cefTRIAXone 2 gm In 50 100 Sodium Chloride 0.9% 50 ml @ 100 mls/hr IVPB Q24HR [facility] Rx#:[id number] Tube Feeding [phone] Other 90 90 Output: Urine 800 865 440 Other: Voiding Method Indwelling Catheter Indwelling Catheter Indwelling Catheter # Voids 1 - Exam - Neck Neck: no lymphadenopathy, no stridor - Respiratory Scattered rhonchi throughout, full ventilator support - Cardiovascular Regular rhythm and rate. S1 and S2 present, negative for S3, gallop or murmur. Trace edema to her bilateral lower extremities. - Gastrointestinal Abdomen soft and nondistended. - Integumentary Skin is warm and dry. No clubbing or cyanosis is present. Integumentary: no rash - Neurologic Recently off of propofol drip - Labs CBC & Chem 7: 01/25/20 04:00 01/25/20 09:30 Labs: Abnormal Lab Results - Last 24 Hours (Table) 01/24/20 01/24/20 01/24/20 Range/Units 16:53 20:18 22:57 ABG pH (7.35-7.45) ABG pCO2 (35-45) mmHg ABG pO2 (83-108) mmHg ABG HCO3 (21-25) mmol/L ABG Total CO2 (19-24) mmol/L Carbon Dioxide (22-30) mmol/L BUN (7-17) mg/dL Creatinine (0.52-1.04) mg/dL Glucose (74-99) mg/dL POC Glucose (mg/dL) 166 H 139 H 158 H (75-99) mg/dL Ferritin (10.0-291.0) ng/mL C-Reactive Protein (<10.0) mg/L Total Protein (6.3-8.2) g/dL Albumin (3.5-5.0) g/dL 01/25/20 01/25/20 01/25/20 Range/Units 04:00 05:12 11:15 ABG pH 7.47 H (7.35-7.45) ABG pCO2 52 H (35-45) mmHg ABG pO2 70 L (83-108) mmHg ABG HCO3 37 H (21-25) mmol/L ABG Total CO2 39 H (19-24) mmol/L Carbon Dioxide 39 H (22-30) mmol/L BUN 40 H (7-17) mg/dL Creatinine 0.47 L (0.52-1.04) mg/dL Glucose 134 H (74-99) mg/dL POC Glucose (mg/dL) 130 H (75-99) mg/dL Ferritin 372.8 H (10.0-291.0) ng/mL C-Reactive Protein 14.1 H (<10.0) mg/L Total Protein 5.6 L (6.3-8.2) g/dL Albumin 2.8 L (3.5-5.0) g/dL Assessment and Plan Assessment: Hypotension and tachycardia due to volume depleted state Acute hypoxic respiratory failure on ventilator COVID 19 pneumonia with some improvement in oxygenation Gram-negative Klebsiella pneumonia, healthcare associated pneumonia likely Ventilator adjustment now patient is on 40 % oxygen but will be titrated oxygen down as tolerated, her peak airway pressures are stable high 20s , will keep PEEP to 8, will continue weaning trial as tolerated sedation holiday along with CPAP and pressure support control trial as tolerated Sinus bradycardia with hypertension, monitor off of Lopressor and clonidine, continue hydralazine IV as needed consult cardiovascular disease and associated patient Norvasc dose has been escalated patient is manifesting adequate hemodynamics heart rate is in 60s and blood pressure is adequate Continue I's and Os negative side monitor urine output, continue Lasix to 40 mg IV every 12 hours Bilateral small pleural effusion multifactorial process Chronic right-sided weakness dysphagia and aphasia status post PEG tube COPD Insulin-dependent diabetes mellitus uncontrolled Hypertension hypertensive cardiovascular disease, will decrease Norvasc to 5 mg Chronic atrial fibrillation on anticoagulation Lovenox Critical care time 35 minutes Plan: We'll give fluid bolus and started gentle rehydration continue to hold Lasix and resume Lopressor Patient at risk of respiratory failure again in the event of extubation, in order to extubate safely will need a tracheostomy also patient has excessive amount of respiratory secretions which require frequent suctioning, to begin with patient has multiple comorbidities including marisol-plegia a aphasia and strokes in the past, message has been left for family consult has been initiated with surgical service for tracheostomy, patient has been tentatively scheduled for tracheostomy on January 29 Neurology consultation Titrated oxygen down as as tolerated with slow lowering of PEEP, will be lowered subsequently as noted above Continue sedation holiday in his spontaneous breathing trials Will discuss with the family about further plan of care Anticoagulation. Lovenox twice a day Monitor off of his steroids Continue to hold Norvasc other hemodynamic parameters as noted above Observe off of levo fed Continue tube feed Ventilator adjustment Continue to check inflammatory labs for covid19 as needed Monitor sodium levels closely Continue respiratory and contact isolation Time with Patient: Greater than 30
--- NOTE | 2020-01-25 15:05 | P.DS ---
Providers Date of admission: 12/28/19 19:12 Expected date of discharge: 01/25/20 Attending physician: Yvonne Dominguez Consults: 12/28/19 19:12 Consult Physician Routine Consulting Provider: Phyllis Neal Consult Reason/Comments: COVID Do you want consulting provider notified?: Yes 12/29/19 13:24 Consult Physician Routine Consulting Provider: Dimitry Kamara Consult Reason/Comments: COVID Do you want consulting provider notified?: Yes 01/10/20 08:31 Consult Physician Routine Consulting Provider: Trey Perez Consult Reason/Comments: COVID-19 pneumonia, critical care mangement Do you want consulting provider notified?: Already Contacted 01/14/20 08:17 Consult Physician Routine Consulting Provider: Andre Rojas Consult Reason/Comments: hypertention and bradycardia Do you want consulting provider notified?: Yes 01/21/20 14:21 Consult Physician Routine Consulting Provider: Flaco Mckeon Consult Reason/Comments: possible trach Do you want consulting provider notified?: Yes, Notify in am 01/24/20 13:54 Consult Physician Urgent Consulting Provider: Alaina Joiner Consult Reason/Comments: questionable seizure disorder Do you want consulting provider notified?: Already Contacted Primary care physician: Yvonne Dominguez [place] Course: Diagnoses on discharge: #1 pneumonia likely related to COVID 19 viral pneumonitis, with possible superimposed aspiration pneumonia . followed by pulmonary and infectious disease, condition has worsened over night patient is currently in ICU maintained on mechanical ventilation #2 severe hypernatremia, on admission corrected #3 mental status changes likely related to hypernatremia and metabolic encephalopathy related to infection #4 acute hypoxic respiratory failure related to pneumonia, patient has been mechanical ventilation since January 07, 2020 #5 underlying history of hypertension #6 underlying history of COPD #7 underlying history of insulin-dependent diabetes mellitus, insulin dose adjusted today Levemir increased to 35 units daily #8 underlying history of stroke with right sided paralysis #9 chronic dysphagia and aspiration requiring PEG tube feeding #10 underlying history of atrial fibrillation maintained on Xarelto #11 vaginal bleeding, at this time will monitor closely, will check daily CBC, and monitor for amount of bleeding. Once her current illness has subsided, will investigate further with pelvic ultrasound and ADVERTISING SALES REPRESENTATIVE consult. #12 hyperkalemia, corrected Hospital course: Soledad Enriquez, is an 79-year-old female who resides at a skilled nursing at this time will was noticed to have worsening mental status and persistent cough, patient started having elevated temperature up to 101 at that point she was sent to [facility] emergency room she had testing for influenza A and B which were negative she also had an instant test for Covid 19 which was positive she was admitted to telemetry floor she was started on IV Zithromax pulmonary and infectious disease consultation were requested. Patient also had evidence of dehydration with hypernatremia elevated sodium level at 151. Patient has a known history of multiple medical problems including history of stroke with right sided paralysis, history of aspiration patient has a PEG tube for feeding, history of insulin-dependent diabetes mellitus, history of hypertension, history of hyperlipidemia, and history of paroxysmal atrial fibrillation. On presentation patient had a temperature of 101 pulse of 82 respiration 18 blood pressure 119/63 and pulse ox of 91% on 4 L nasal cannula. White blood count was 4.8 chest x-ray revealed evidence of left basilar opacity. On 12/30/2019 patient was seen and examined on the medical floor she is somn olent responsive in no apparent distress there is low-grade fever temperature is 100.8 there is no chills no headache or dizziness no chest pain no shortness of breath no cough no nausea or vomiting no abdominal pain no diarrhea and no burning was urination. Nurse noticed some vaginal bleeding, hemoglobin is stable at 15. Pulse ox is 96% on 4 L nasal cannula , On 12/31/2019 patient was seen and examined on the medical floor she is somnolent responsive in no apparent distress, her fever is subsiding temperatures this morning 99 pulse ox is 92% on 4 L nasal cannula, patient is denying any complaints at this time however, she does not seem to be listening much to the questions, and she goes back to sleep fast. White blood count today is normal at 4.1 hemoglobin is 15.2 potassium is elevated at 5.8 On 01/01/2020 patient was seen and examined on the medical floor she is more alert and responsive today there is no fever or chills no headache or dizziness no chest pain no shortness of breath no cough no nausea or vomiting no abdominal pain no diarrhea and no urinary symptoms, she is receiving feeding through PEG tube at night, glucose level is elevated again, will increase Lantus dose to 25 units at bedtime, and continue was inserted into sliding scale. Patient is receiving oxygen via nasal cannula at 4 L her pulse ox is 92% patient does not seem to be in any distress her temperature heart rates respiration rate and blood pressure are in normal range white blood count is 3.8 potassium 4.8 On 01/02/2020 patient was seen and examined on the medical floor she is alert and responsive in no apparent distress. This morning patient had an episode of shortness of breath with decreased O2 sat duration A team was called patient received IV Lasix Sands catheter was inserted chest x-ray was done. Currently patient is doing better pulse ox is 92% on 4 L nasal cannula. On 01/03/2020 patient was seen and examined on the medical floor she is alert responsive in no apparent distress, her pulse ox is 92% on 6 L nasal cannula she is afebrile blood pressure is 123/87 chest x-ray done yesterday reveals left lower lobe infiltrate and right perihilar infiltrates. Without significant improvement from prior x-rays. On 01/04/2020 patient was seen and examined on the medical floor she is more alert and responsive today he denies any pain or discomfort, her pulse ox was lower today and she was switched to a nonrebreather mask On 01/05/2020 patient was seen and examined on the medical floor, she is alert and responsive at this time, she is tolerating tube feeding well, she denied any pain or discomfort. On 01/06/2020 patient was seen and examined on the medical floor, she is alert responsive in no apparent distress she is answering a few questions with yes or no or nodding her head she is tolerating tube feeding well she is denying any pain or discomfort at this time, her temperature is 98.1 blood pressure 135/75 pulse ox 90% on nonrebreather mask. On 01/07/2020 Patient was seen and examined in the ICU. Around 7:00 am this morning patient was on the floor she was having worsening shortness of breath and using accessory muscles she was on nonrebreather mask and her O2 sat duration was 88% Dr. Caba cancer program coordinator was contacted patient was transferred to ICU she was intubated sedated and started on mechanical ventilation, she was also started on levophed for blood pressure support. On 01/08/2020 Patient was seen and examined in the ICU. She is intubated sedated maintained on mechanical ventilation, she is still on a small dose of Levophed. She is receiving tube feeding via PEG tube. Her ABG reveals a pH of 7.4 to pCO2 45 by mouth to 59 FiO2 is 70% On 01/09/2020 patient was seen and examined in the ICU she remains intubated sedated maintained on mechanical ventilation, she remains on a small dose of levophed for pressure support. ABG reveals a pH of 7.4 pCO2 47 PO2 77 with FiO2 of 70% her temperature is 90.8 pulse 69 respiration 27 blood pressure 112/70 On 01/10/2020 patient was seen and examined in the ICU she is intubated sedated maintained on mechanical ventilation, temperature is 97.9 pulse 62 respiration 20 blood pressure 121/73 ABG reveals pH of 7.39 pCO2 52 by mouth to 59 FiO2 is 60% no significant change in condition since yesterday patient is receiving tube feeding. She was not seen by critical care yesterday due to personal reasons per nurse. At this time will change consult for pulmonary and critical care to Dr. Perez. On 01/11/2020 Patient was seen and examined in the ICU she is intubated, sedated, maintained on mechanical ventilation. there is no fever or chills. ABs reveals PH 7.46 PCO2 51 PO2 58 FIO@ 100 % On 01/12/2020 patient was seen and examined in the ICU she is intubated sedated maintained on mechanical ventilation she is not on any pressure support there is no fever or chills she is receiving tube feeding. On 01/13/2020 patient was seen and examined in the ICU she is intubated sedated maintained on mechanical ventilation, she is maintained on 2 feeding glucose is elevated, dose of Levemir will be increased to 35 units daily, continue with sliding scale. ABG reveals pH 7.5 one pCO2 46 by mouth to 90 FiO2 of 60% On 01/14/2020 patient was seen and examined in the ICU she is intubated sedated maintained on mechanical ventilation she is also maintained on PEG tube feeding she had episodes of bradycardia cardiology were consulted and beta herminio were discontinued and patient was started on Norvasc patient also is having some minimal elevation in her liver enzymes pravastatin was discontinued. Otherwise no significant change in her condition patient remains on mechanical ventilation no weaning trials are scheduled for today. On 01/15/2020 patient was seen and examined in the ICU she is intubated sedated maintained on mechanical ventilation she is receiving PEG tube feeding. Case was discussed with Dr. Kamara cancer program coordinator. Patient is stable and is improving she is alert when her sedation is decreased however her O2 saturation drops with sedation holidays. There is no fever or chills. Temperature is 97.7 pulse 60 respirations 17 blood pressure 143/74 ABG reveals a pH of 7.46 pCO2 52 by mouth to 52 FiO2 at this time is 40% On 01/16/2020 patient was seen and examined in the ICU she is intubated sedated maintained on mechanical ventilation, FiO2 and PEEP are being decreased gradually arterial blood gases reveal a pH of 7.46 pCO2 51 CO2 54 FiO2 of 40% patient is febrile temperature is 98.1 blood pressure 130/76 she is not on any pressure support she is receiving PEG tube feeding. On 01/17/2020 patient was seen and examined in the ICU she is intubated sedated maintained on mechanical ventilation, vital exam reveals a temperature of 99.2 pulse 76 respiration 16 blood pressure 117/57 white blood count is 7.4 hemoglobin 13.9 platelets count 116 BUN is 30 creatinine 0.47 Arterial blood gas reveals a pH of 7.48 pCO2 49 by mouth to 90 on FiO2 of 60% On 01/18/2020 patient was seen and examined in the ICU she is intubated sedated maintained on mechanical ventilation, she had one hour sedation holiday this morning, patient was able to respond, she started having some cough and tachypnea and she was started back on sedation. Vital exam reveals a temperature of 98.6 pulse 82 respiration 20 blood pressure 118/61 white blood count is 6.5 hemoglobin 12.3 arterial blood gas revealed pH 7.42 pCO2 59 CO2 59 FiO2 50% On 01/19/2020 patient was seen and examined in the ICU she is intubated sedated maintained on mechanical ventilation she is receiving sedation holidays and is followed closely by pulmonary critical care and infectious disease patient is improving gradually On 01/20/2020 patient was seen and examined in the ICU she remains intubated and sedated she is receiving sedation holidays and is tolerating wel there is no fever or chills , she is maintained on IV antibiotics her ABG reveals a pH of 7.5 one pCO2 44 pO2 64 FiO2 is 40% she is improving gradually On 01/21/2020 patient was seen and examined in the ICU case was discussed in details with Dr. Kamara patient has not tolerated decreasing ventilation on multiple attempts and may need a tracheostomy placement. Temperature is 98.7 pulse 70 respirations 13 blood pressure 147/80 blood gases reveals a pH of 7.45 pCO2 53 by mouth to 55 on FiO2 of 40% On 01/22/2020 patient seen and examined in the ICU she is intubated sedated maintained on mechanical ventilation there is no fever or chills temperature is 98.4 pulse 70 respiration 15 blood pressure 108/58 arterial blood gases reveals pH of 7.44 pCO2 56 PaO2 of [address] 40% Dr Kamara is contacting her family to discuss further treatment steps including tracheostomy. on 01/23/2020 patient was seen and examined in the emergency room, she remains intubated sedated maintained on mechanical ventilation vital exam reveals a temperature of 98.7 pulse 95 . Patient 13 blood pressure 102/62 arterial blood gas reveals a pH of 7.46 pCO2 56 pO2 57 FiO2 of 40% On 01/24/2020 patient was seen and examined in the ICU, she remains intubated sedated maintained on mechanical ventilation, vital exam reveals a temperature of 98.3 pulse 94 respirations 17 blood pressure 121/79 ABG reveals pH 7.45 pCO2 55 PaO2 69 FiO2 is 40% On 01/25/2020 patient was seen and examined in the ICU patient is not ready to be extubated yet, per conversation between Dr. Caba and family members decision was made to proceed was transferring patient to [facility]. Today her vital exam reveals a temperature of 98.1 pulse 117 respiration 14 blood pressure 112/68 arterial blood gas reveals pH 7.47 pCO2 52 PaO2 70 FiO2 of 40%. At this time will proceed was transferring [facility]. We will continue same medication at this time. Patient Condition at Discharge: Serious Plan - Discharge Summary Discharge Rx Participant: No New Discharge Prescriptions: New Furosemide [Lasix] 40 mg PEG/G-TUBE BID 30 Days #60 tablet Insulin Detemir (Levemir) [Levemir] 40 unit SQ HS syr Metoprolol Tartrate [Lopressor] 12.5 mg PO 0600,1800 tab Enoxaparin [Lovenox] 40 mg SQ BID syringe INSULIN ASPART (NovoLOG) [NovoLOG (formulary)] 0 unit SQ Q4H vial Zinc Sulfate [Orazinc] 220 mg PO DAILY cap Chlorhexidine Gluconate [Peridex] 15 ml MUCOUS MEM BID solution cefTRIAXone [Rocephin] 2 gm IVPB Q24HR vial Acetaminophen Tab [Tylenol] 650 mg PO Q6HR PRN tab PRN Reason: Mild Pain Or Fever > 100.5 Albuterol Inhaler [Ventolin Hfa Inhaler] 2 puff INHALATION RT-QID puff Rivaroxaban [Xarelto] 15 mg PO HS tab Lisinopril [Zestril] 2.5 mg PEG/G-TUBE 1200 tab Continue amLODIPine [Norvasc] 10 mg PEG/G-TUBE DAILY Folic Acid 0.8 mg PEG/G-TUBE HS@1999 cloNIDine HCL [Catapres] 0.1 mg PEG/G-TUBE HS@1999 Ferrous Sulfate [Iron (65 MG Elemental)] 325 mg PEG/G-TUBE HS@1999 glipiZIDE [Glucotrol] 5 mg PEG/G-TUBE DAILY Potassium Chloride Oral Liquid 10 meq PEG/G-TUBE DAILY Cholecalciferol [Vitamin D3 (25 Mcg = 1000 Iu)] 2,000 unit PEG/G-TUBE DAILY Discontinued Furosemide [Lasix] 20 mg PEG/G-TUBE DAILY Pravastatin Sodium [Pravachol] 10 mg PEG/G-TUBE HS@1999 Lisinopril [Zestril] 10 mg PEG/G-TUBE DAILY Metoprolol Tartrate [Lopressor] 50 mg PEG/G-TUBE BID Rivaroxaban [Xarelto] 10 mg PEG/G-TUBE HS@1999 Insulin Lispro [humaLOG Kwikpen] 2 unit SQ AC-TID@0700,1100,16 Insulin Glargine,Hum.rec.anlog [Lantus Solostar] 18 unit SQ HS@1999 Insulin Lispro [humaLOG Kwikpen] See Protocol SQ ACHS Discharge Medication List amLODIPine [Norvasc] 10 mg PEG/G-TUBE DAILY 01/24/16 [History] Folic Acid 0.8 mg PEG/G-TUBE HS@199902/23/19 [History] Ferrous Sulfate [Iron (65 MG Elemental)] 325 mg PEG/G-TUBE HS@199910/05/19 [History] cloNIDine HCL [Catapres] 0.1 mg PEG/G-TUBE HS@199910/05/19 [History] glipiZIDE [Glucotrol] 5 mg PEG/G-TUBE DAILY 10/05/19 [History] Potassium Chloride Oral Liquid 10 meq PEG/G-TUBE DAILY 11/07/19 [History] Cholecalciferol [Vitamin D3 (25 Mcg = 1000 Iu)] 2,000 unit PEG/G-TUBE DAILY 12/28/19 [History] Acetaminophen Tab [Tylenol] 650 mg PO Q6HR PRN tab 01/25/20 [Rx] Albuterol Inhaler [Ventolin Hfa Inhaler] 2 puff INHALATION RT-QID puff 01/25/20 [Rx] Chlorhexidine Gluconate [Peridex] 15 ml MUCOUS MEM BID solution 01/25/20 [Rx] Enoxaparin [Lovenox] 40 mg SQ BID syringe 01/25/20 [Rx] Furosemide [Lasix] 40 mg PEG/G-TUBE BID 30 Days #60 tablet 01/25/20 [Rx] INSULIN ASPART (NovoLOG) [NovoLOG (formulary)] 0 unit SQ Q4H vial 01/25/20 [Rx] Insulin Detemir (Levemir) [Levemir] 40 unit SQ HS syr 01/25/20 [Rx] Lisinopril [Zestril] 2.5 mg PEG/G-TUBE 1200 tab 01/25/20 [Rx] Metoprolol Tartrate [Lopressor] 12.5 mg PO 0600,1800 tab 01/25/20 [Rx] Rivaroxaban [Xarelto] 15 mg PO HS tab 01/25/20 [Rx] Zinc Sulfate [Orazinc] 220 mg PO DAILY cap 01/25/20 [Rx] cefTRIAXone [Rocephin] 2 gm IVPB Q24HR vial 01/25/20 [Rx] Follow up Appointment(s)/Referral(s): Yvonne Dominguez MD [Primary Care Provider] - 1-2 days
[2020-01-25] MEDS: SODIUM CHLORIDE 0.9% 1,000 ML IV SCH ×2 (15:13→16:32)
[2020-01-25] MEDS: SODIUM CHLORIDE 0.9% 250 ML IV SCH ×4 (15:13→16:31)
--- NOTE | 2020-01-25 15:13 | PN ---
PROGRESS NOTE DATE OF SERVICE: 01/25/2020 REASON FOR FOLLOWUP: Pneumonia. INTERVAL HISTORY: The patient is currently afebrile. Apparently the patient did have a problem with atrial fibrillation with RVR last night, has some hypotension, required some fluid boluses. The patient is currently hemodynamically stable. FiO2 is stable. No fever or any other changes reported by the nursing staff. PHYSICAL EXAMINATION: Blood pressure is 121/77 with a pulse of 117, temperature 98.1, she is 96% on 40% FiO2. General description is an elderly female, lying in bed in no distress. RESPIRATORY SYSTEM: Unlabored breathing, decreased breath sounds at the bases. No wheeze. HEART: S1, S2. Regular rate and rhythm. ABDOMEN: Soft, no tenderness. LABS: Hemoglobin 13.1, white count of 6.8. BUN of 40, creatinine 0.47. CRP mildly elevated. DIAGNOSTIC IMPRESSION AND PLAN: Patient with acute respiratory failure which is multifactorial and did have a component of pneumonia, sputum has been Klebsiella. Patient is covered with Rocephin to continue and monitor clinical course closely. MMODL / IJN: [id number] /
[2020-01-25 15:28] LABS: Glucose,Whole Blood 194 mg/dL (75-99)
[2020-01-25 16:05] VITALS: BP 100/63; PULSE 99; RESP 13; TEMP 97.9
--- NOTE | 2020-01-25 17:41 | P.CNNES ---
History of Present Illness Consult date: 01/25/20 Requesting physician: Dimitry Kamara Reason for Consult: Questionable seizure disorder History of Present Illness: Patient is a 79-year-old female, admitted on 12/28/2019, after presenting from detention with lethargy, confusion and hypoxia. She had a cough of 2 weeks' duration. Patient was diagnosed with COVID-19 related pneumonia. Patient was intubated and placed on mechanical ventilation. Patient had a prolonged hospital course. There was some report of questionable seizure-like activity reported. EEG was performed, which revealed no seizure activity. Only moderate background slowing consistent with encephalopathy. According to the documentation, patient was having desaturations comminuting which she had some spasms, not clear if those were seizure-like activity. At present patient is ready for transfer to select specialty. I briefly examined the patient. 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 History of Any Multi-Drug Resistant Organisms: None Reported Past Surgical History: Hysterectomy Additional Past Surgical History / Comment(s): not known at ECF,peg insertion Past Anesthesia/Blood Transfusion Reactions: No Reported Reaction, Unable to Ob tain Additional Past Anesthesia/Blood Transfusion Reaction / Comment(s): spouse thinks no problems that he knows of(poor historian), no info at ECF Past Psychological History: No Psychological Hx Reported Smoking Status: Former smoker Past Alcohol Use History: None Reported Additional Past Alcohol Use History / Comment(s): STARTED SMOKING AT AGE 17,SMOKED LESS THAN 1 PPD, QUIT 2001. Past Drug Use History: None Reported - Past Family History Mother Family Medical History: Unable to Obtain Additional Family Medical History / Comment(s): no info at ECF Father History Unknown: Yes Medications and Allergies Home Medications Medication Instructions Recorded Confirmed Type amLODIPine [Norvasc] 10 mg PEG/G-TUBE DAILY 01/24/16 12/28/19 History Folic Acid 0.8 mg PEG/G-TUBE HS@199902/23/19 12/28/19 History Ferrous Sulfate [Iron (65 MG 325 mg PEG/G-TUBE HS@199910/05/19 12/28/19 History Elemental)] cloNIDine HCL [Catapres] 0.1 mg PEG/G-TUBE HS@199910/05/19 12/28/19 History glipiZIDE [Glucotrol] 5 mg PEG/G-TUBE DAILY 10/05/19 12/28/19 History Potassium Chloride Oral Liquid 10 meq PEG/G-TUBE DAILY 11/07/19 12/28/19 History Cholecalciferol [Vitamin D3 (25 2,000 unit PEG/G-TUBE DAILY 12/28/19 12/28/19 History Mcg = 1000 Iu)] Acetaminophen Tab [Tylenol] 650 mg PO Q6HR PRN tab 01/25/20 Rx Albuterol Inhaler [Ventolin Hfa 2 puff INHALATION RT-QID puff 01/25/20 Rx Inhaler] Chlorhexidine Gluconate [Peridex] 15 ml MUCOUS MEM BID solution 01/25/20 Rx Enoxaparin [Lovenox] 40 mg SQ BID syringe 01/25/20 Rx Furosemide [Lasix] 40 mg PEG/G-TUBE BID 30 Days #60 01/25/20 Rx tablet INSULIN ASPART (NovoLOG) [NovoLOG 0 unit SQ Q4H vial 01/25/20 Rx (formulary)] Insulin Detemir (Levemir) [Levemir] 40 unit SQ HS syr 01/25/20 Rx Lisinopril [Zestril] 2.5 mg PEG/G-TUBE 1200 tab 01/25/20 Rx Metoprolol Tartrate [Lopressor] 12.5 mg PO 0600,1800 tab 01/25/20 Rx Rivaroxaban [Xarelto] 15 mg PO HS tab 01/25/20 Rx Zinc Sulfate [Orazinc] 220 mg PO DAILY cap 01/25/20 Rx cefTRIAXone [Rocephin] 2 gm IVPB Q24HR vial 01/25/20 Rx Allergies Allergy/AdvReac Type Severity Reaction Status Date / Time No Known Allergies Allergy Verified 12/28/19 17:40 Physical Examination - Vital Signs Vital Signs: Vital Signs Temp Pulse Resp BP Pulse Ox 01/25/20 16:00 97.9 F 99 13 100/63 96 01/25/20 15:39 16 01/25/20 15:18 96 01/25/20 15:00 126 H 16 120/54 96 01/25/20 14:00 105 H 14 92/60 95 01/25/20 13:00 117 H 14 121/77 96 01/25/20 12:00 98.1 F 126 H 14 112/68 96 01/25/20 11:32 94 L 01/25/20 11:00 129 H 15 133/76 94 L 01/25/20 10:00 118 H 13 112/52 94 L 01/25/20 09:00 108 H 14 95/56 94 L 01/25/20 08:00 97.9 F 130 H 15 119/76 96 01/25/20 07:00 113 H 18 117/65 95 01/25/20 06:00 117 H 15 122/66 95 01/25/20 05:00 103 H 12 108/64 95 01/25/20 04:00 98.2 F 123 H 14 104/78 95 01/25/20 03:00 126 H 13 104/81 95 01/25/20 02:00 108 H 13 92/58 94 L 01/25/20 01:00 96 14 118/80 96 01/25/20 00:13 106 H 15 118/70 95 01/25/20 00:00 98.5 F 103 H 12 89/57 95 01/24/20 23:00 93 15 90/49 96 01/24/20 22:00 108 H 15 91/60 94 L 01/24/20 21:00 113 H 16 102/62 95 01/24/20 20:00 99.3 F 107 H 14 113/81 94 L 01/24/20 19:00 97 12 122/79 94 L 01/24/20 18:00 92 18 111/59 95 Intake and Output 01/25/20 01/25/20 01/25/20 06:59 14:59 22:59 Intake Total 556.523 681.934 126 Output Total 390 440 100 Balance 166.523 241.934 26 Intake: IV 80 90 50 0.9% NS 80 90 50 Intake, IV Titration 120.523 173.934 Amount Propofol 1,000 mg In 120.523 73.934 Empty Bag 1 bag @ Titrate IV .Q0M [facility] Rx#: [id number] cefTRIAXone 2 gm In 100 Sodium Chloride 0.9% 50 ml @ 100 mls/hr IVPB Q24HR [facility] Rx#:[id number] Tube Feeding 296 418 76 Other 60 Output: Urine 390 440 100 Other: Voiding Method Indwelling Catheter Indwelling Catheter Indwelling Catheter # Voids 1 1 Weight 79.8 kg 79.8 kg Patient is sedated on propofol 30 g. Patient is severely encephalopathic. Pupils are round and reacting. No obvious seizure activity is noticed. Results - Laboratory Findings CBC and BMP: 01/25/20 04:00 01/25/20 09:30 Abnormal Lab Findings: Abnormal Labs 12/28/19 12/28/19 12/28/19 17:53 17:53 17:53 RBC 5.44 H Hgb 16.6 H Hct 52.6 H MCV MCHC Plt Count 107 L Lymphocytes # 0.9 L APTT 19.9 L D-Dimer 1.13 H ABG pH ABG pCO2 ABG pO2 ABG HCO3 ABG Total CO2 ABG O2 Saturation VBG pH VBG HCO3 Sodium 148 H Potassium Chloride 110 H Carbon Dioxide 33 H BUN 45 H Creatinine Glucose 357 H POC Glucose (mg/dL) Plasma Lactic Acid [place] Calcium Magnesium 2.6 H Ferritin 360.5 H AST 59 H ALT 61 H Lactate Dehydrogenase 1053 H Creatine Kinase C-Reactive Protein 10.5 H Total Protein Albumin Procalcitonin Urine Protein Coronavirus (PCR) 12/28/19 12/28/19 12/28/19 17:53 17:53 18:15 RBC Hgb Hct MCV MCHC Plt Count Lymphocytes # APTT D-Dimer ABG pH ABG pCO2 ABG pO2 ABG HCO3 ABG Total CO2 ABG O2 Saturation VBG pH 7.44 H VBG HCO3 33 H Sodium Potassium Chloride Carbon Dioxide BUN Creatinine Glucose POC Glucose (mg/dL) Plasma Lactic Acid [place] 2.1 H* Calcium Magnesium Ferritin AST ALT Lactate Dehydrogenase Creatine Kinase C-Reactive Protein Total Protein Albumin Procalcitonin Urine Protein Coronavirus (PCR) Detected A 12/28/19 12/29/19 12/29/19 22:56 06:16 06:56 RBC Hgb Hct 49.3 H MCV MCHC Plt Count 94 L Lymphocytes # 0.9 L APTT D-Dimer ABG pH ABG pCO2 ABG pO2 ABG HCO3 ABG Total CO2 ABG O2 Saturation VBG pH VBG HCO3 Sodium Potassium Chloride Carbon Dioxide BUN Creatinine Glucose POC Glucose (mg/dL) 297 H 209 H Plasma Lactic Acid [place] Calcium Magnesium Ferritin AST ALT Lactate Dehydrogenase Creatine Kinase C-Reactive Protein Total Protein Albumin Procalcitonin Urine Protein Coronavirus (PCR) 12/29/19 12/29/19 12/29/19 06:56 12:04 16:49 RBC Hgb Hct MCV MCHC Plt Count Lymphocytes # APTT D-Dimer ABG pH ABG pCO2 ABG pO2 ABG HCO3 ABG Total CO2 ABG O2 Saturation VBG pH VBG HCO3 Sodium 151 H Potassium Chloride 115 H Carbon Dioxide 34 H BUN 39 H Creatinine Glucose 220 H POC Glucose (mg/dL) 168 H 168 H Plasma Lactic Acid [place] Calcium Magnesium Ferritin AST ALT Lactate Dehydrogenase Creatine Kinase C-Reactive Protein Total Protein Albumin Procalcitonin Urine Protein Coronavirus (PCR) 12/29/19 12/30/19 12/30/19 20:42 06:14 07:17 RBC Hgb Hct 48.8 H MCV MCHC 30.8 L Plt Count 93 L Lymphocytes # 0.8 L APTT D-Dimer ABG pH ABG pCO2 ABG pO2 ABG HCO3 ABG Total CO2 ABG O2 Saturation VBG pH VBG HCO3 Sodium Potassium Chloride Carbon Dioxide BUN Creatinine Glucose POC Glucose (mg/dL) 273 H 392 H Plasma Lactic Acid [place] Calcium Magnesium Ferritin AST ALT Lactate Dehydrogenase Creatine Kinase C-Reactive Protein Total Protein Albumin Procalcitonin Urine Protein Coronavirus (PCR) 12/30/19 12/30/19 12/30/19 07:17 07:17 11:46 RBC Hgb Hct MCV MCHC Plt Count Lymphocytes # APTT D-Dimer 0.68 H ABG pH ABG pCO2 ABG pO2 ABG HCO3 ABG Total CO2 ABG O2 Saturation VBG pH VBG HCO3 Sodium Potassium Chloride 110 H Carbon Dioxide 32 H BUN 35 H Creatinine Glucose 422 H POC Glucose (mg/dL) 239 H Plasma Lactic Acid [place] Calcium Magnesium Ferritin AST 40 H ALT 41 H Lactate Dehydrogenase 730 H Creatine Kinase C-Reactive Protein 43.8 H Total Protein 5.9 L Albumin 2.8 L Procalcitonin Urine Protein Coronavirus (PCR) 12/30/19 12/31/19 12/31/19 20:16 06:24 06:40 RBC Hgb Hct 50.1 H MCV 100.1 H MCHC 30.2 L Plt Count 79 L Lymphocytes # 0.7 L APTT D-Dimer ABG pH ABG pCO2 ABG pO2 ABG HCO3 ABG Total CO2 ABG O2 Saturation VBG pH VBG HCO3 Sodium Potassium Chloride Carbon Dioxide BUN Creatinine Glucose POC Glucose (mg/dL) 188 H 476 H Plasma Lactic Acid [place] Calcium Magnesium Ferritin AST ALT Lactate Dehydrogenase Creatine Kinase C-Reactive Protein Total Protein Albumin Procalcitonin Urine Protein Coronavirus (PCR) 12/31/19 12/31/19 12/31/19 06:40 09:02 09:24 RBC Hgb Hct MCV MCHC Plt Count Lymphocytes # APTT D-Dimer ABG pH ABG pCO2 ABG pO2 ABG HCO3 ABG Total CO2 ABG O2 Saturation VBG pH VBG HCO3 Sodium Potassium 5.8 H Chloride Carbon Dioxide BUN 36 H Creatinine Glucose 496 H POC Glucose (mg/dL) 421 H 402 H Plasma Lactic Acid [place] Calcium Magnesium Ferritin AST 38 H ALT Lactate Dehydrogenase Creatine Kinase C-Reactive Protein Total Protein 5.9 L Albumin 2.7 L Procalcitonin Urine Protein Coronavirus (PCR) 12/31/19 12/31/19 12/31/19 10:04 10:53 11:36 RBC Hgb Hct MCV MCHC Plt Count Lymphocytes # APTT D-Dimer ABG pH ABG pCO2 ABG pO2 ABG HCO3 ABG Total CO2 ABG O2 Saturation VBG pH VBG HCO3 Sodium Potassium Chloride Carbon Dioxide BUN Creatinine Glucose POC Glucose (mg/dL) 360 H 328 H 316 H Plasma Lactic Acid [place] Calcium Magnesium Ferritin AST ALT Lactate Dehydrogenase Creatine Kinase C-Reactive Protein Total Protein Albumin Procalcitonin Urine Protein Coronavirus (PCR) 12/31/19 12/31/19 12/31/19 11:57 12:18 12:27 RBC Hgb Hct MCV MCHC Plt Count Lymphocytes # APTT D-Dimer ABG pH ABG pCO2 ABG pO2 ABG HCO3 ABG Total CO2 ABG O2 Saturation VBG pH VBG HCO3 Sodium Potassium Chloride Carbon Dioxide BUN Creatinine Glucose POC Glucose (mg/dL) 323 H 245 H 228 H Plasma Lactic Acid [place] Calcium Magnesium Ferritin AST ALT Lactate Dehydrogenase Creatine Kinase C-Reactive Protein Total Protein Albumin Procalcitonin Urine Protein Coronavirus (PCR) 12/31/19 12/31/19 12/31/19 14:27 16:37 18:11 RBC Hgb Hct MCV MCHC Plt Count Lymphocytes # APTT D-Dimer ABG pH ABG pCO2 ABG pO2 ABG HCO3 ABG Total CO2 ABG O2 Saturation VBG pH VBG HCO3 Sodium Potassium Chloride Carbon Dioxide BUN Creatinine Glucose POC Glucose (mg/dL) 185 H 139 H 138 H Plasma Lactic Acid [place] Calcium Magnesium Ferritin AST ALT Lactate Dehydrogenase Creatine Kinase C-Reactive Protein Total Protein Albumin Procalcitonin Urine Protein Coronavirus (PCR) 12/31/19 01/01/20 01/01/20 20:36 05:42 05:42 RBC Hgb Hct 49.4 H MCV MCHC 30.8 L Plt Count 78 L Lymphocytes # 0.6 L APTT D-Dimer ABG pH ABG pCO2 ABG pO2 ABG HCO3 ABG Total CO2 ABG O2 Saturation VBG pH VBG HCO3 Sodium Potassium Chloride 109 H Carbon Dioxide BUN 39 H Creatinine Glucose 421 H POC Glucose (mg/dL) 167 H Plasma Lactic Acid [place] Calcium Magnesium Ferritin AST ALT Lactate Dehydrogenase Creatine Kinase C-Reactive Protein Total Protein 5.8 L Albumin 2.7 L Procalcitonin Urine Protein Coronavirus (PCR) 01/01/20 01/01/20 01/01/20 05:49 11:47 17:15 RBC Hgb Hct MCV MCHC Plt Count Lymphocytes # APTT D-Dimer ABG pH ABG pCO2 ABG pO2 ABG HCO3 ABG Total CO2 ABG O2 Saturation VBG pH VBG HCO3 Sodium Potassium Chloride Carbon Dioxide BUN Creatinine Glucose POC Glucose (mg/dL) 391 H 327 H 176 H Plasma Lactic Acid [place] Calcium Magnesium Ferritin AST ALT Lactate Dehydrogenase Creatine Kinase C-Reactive Protein Total Protein Albumin Procalcitonin Urine Protein Coronavirus (PCR) 01/01/20 01/02/20 01/02/20 20:49 06:20 06:34 RBC 5.52 H Hgb 17.1 H Hct 52.5 H MCV MCHC Plt Count 89 L Lymphocytes # APTT D-Dimer ABG pH ABG pCO2 ABG pO2 ABG HCO3 ABG Total CO2 ABG O2 Saturation VBG pH VBG HCO3 Sodium Potassium Chloride Carbon Dioxide BUN Creatinine Glucose POC Glucose (mg/dL) 168 H 165 H Plasma Lactic Acid [place] Calcium Magnesium Ferritin AST ALT Lactate Dehydrogenase Creatine Kinase C-Reactive Protein Total Protein Albumin Procalcitonin Urine Protein Coronavirus (PCR) 01/02/20 01/02/2001/01/20 06:34 12:20 16:37 RBC Hgb Hct MCV MCHC Plt Count Lymphocytes # APTT D-Dimer ABG pH ABG pCO2 ABG pO2 ABG HCO3 ABG Total CO2 ABG O2 Saturation VBG pH VBG HCO3 Sodium 147 H Potassium Chloride 109 H Carbon Dioxide 33 H BUN 22 H Creatinine Glucose 176 H POC Glucose (mg/dL) 272 H 293 H Plasma Lactic Acid [place] Calcium Magnesium Ferritin AST 38 H ALT Lactate Dehydrogenase Creatine Kinase C-Reactive Protein Total Protein Albumin 2.9 L Procalcitonin Urine Protein Coronavirus (PCR) 01/02/20 01/03/20 01/03/20 19:56 06:03 20:02 RBC Hgb Hct MCV MCHC Plt Count Lymphocytes # APTT D-Dimer ABG pH ABG pCO2 ABG pO2 ABG HCO3 ABG Total CO2 ABG O2 Saturation VBG pH VBG HCO3 Sodium Potassium Chloride Carbon Dioxide BUN Creatinine Glucose POC Glucose (mg/dL) 228 H 249 H 146 H Plasma Lactic Acid [place] Calcium Magnesium Ferritin AST ALT Lactate Dehydrogenase Creatine Kinase C-Reactive Protein Total Protein Albumin Procalcitonin Urine Protein Coronavirus (PCR) 01/04/20 01/04/20 01/04/20 06:13 06:23 06:23 RBC Hgb Hct 48.5 H MCV MCHC Plt Count 96 L Lymphocytes # 0.8 L APTT D-Dimer ABG pH ABG pCO2 ABG pO2 ABG HCO3 ABG Total CO2 ABG O2 Saturation VBG pH VBG HCO3 Sodium Potassium Chloride 109 H Carbon Dioxide BUN 25 H Creatinine Glucose 342 H POC Glucose (mg/dL) 297 H Plasma Lactic Acid [place] Calcium Magnesium Ferritin AST 38 H ALT Lactate Dehydrogenase Creatine Kinase C-Reactive Protein Total Protein 5.5 L Albumin 2.4 L Procalcitonin Urine Protein Coronavirus (PCR) 01/04/20 01/04/20 01/04/20 11:43 16:39 20:09 RBC Hgb Hct MCV MCHC Plt Count Lymphocytes # APTT D-Dimer ABG pH ABG pCO2 ABG pO2 ABG HCO3 ABG Total CO2 ABG O2 Saturation VBG pH VBG HCO3 Sodium Potassium Chloride Carbon Dioxide BUN Creatinine Glucose POC Glucose (mg/dL) 131 H 114 H 109 H Plasma Lactic Acid [place] Calcium Magnesium Ferritin AST ALT Lactate Dehydrogenase Creatine Kinase C-Reactive Protein Total Protein Albumin Procalcitonin Urine Protein Coronavirus (PCR) 01/05/20 01/05/20 01/05/20 06:12 11:46 16:38 RBC Hgb Hct MCV MCHC Plt Count Lymphocytes # APTT D-Dimer ABG pH ABG pCO2 ABG pO2 ABG HCO3 ABG Total CO2 ABG O2 Saturation VBG pH VBG HCO3 Sodium Potassium Chloride Carbon Dioxide BUN Creatinine Glucose POC Glucose (mg/dL) 102 H 156 H 128 H Plasma Lactic Acid [place] Calcium Magnesium Ferritin AST ALT Lactate Dehydrogenase Creatine Kinase C-Reactive Protein Total Protein Albumin Procalcitonin Urine Protein Coronavirus (PCR) 01/05/20 01/06/20 01/06/20 20:44 05:51 06:27 RBC Hgb Hct 47.8 H MCV MCHC Plt Count Lymphocytes # APTT D-Dimer ABG pH ABG pCO2 ABG pO2 ABG HCO3 ABG Total CO2 ABG O2 Saturation VBG pH VBG HCO3 Sodium Potassium Chloride Carbon Dioxide BUN Creatinine Glucose POC Glucose (mg/dL) 122 H 147 H Plasma Lactic Acid [place] Calcium Magnesium Ferritin AST ALT Lactate Dehydrogenase Creatine Kinase C-Reactive Protein Total Protein Albumin Procalcitonin Urine Protein Coronavirus (PCR) 01/06/20 01/06/20 01/06/20 06:27 11:22 16:41 RBC Hgb Hct MCV MCHC Plt Count Lymphocytes # APTT D-Dimer ABG pH ABG pCO2 ABG pO2 ABG HCO3 ABG Total CO2 ABG O2 Saturation VBG pH VBG HCO3 Sodium 147 H Potassium Chloride 110 H Carbon Dioxide 33 H BUN 22 H Creatinine Glucose 151 H POC Glucose (mg/dL) 128 H 49 L Plasma Lactic Acid [place] Calcium Magnesium Ferritin AST ALT Lactate Dehydrogenase Creatine Kinase C-Reactive Protein Total Protein 5.6 L Albumin 2.5 L Procalcitonin Urine Protein Coronavirus (PCR) 01/06/20 01/06/20 01/06/20 16:43 17:02 20:36 RBC Hgb Hct MCV MCHC Plt Count Lymphocytes # APTT D-Dimer ABG pH ABG pCO2 ABG pO2 ABG HCO3 ABG Total CO2 ABG O2 Saturation VBG pH VBG HCO3 Sodium Potassium Chloride Carbon Dioxide BUN Creatinine Glucose POC Glucose (mg/dL) 51 L 192 H 130 H Plasma Lactic Acid [place] Calcium Magnesium Ferritin AST ALT Lactate Dehydrogenase Creatine Kinase C-Reactive Protein Total Protein Albumin Procalcitonin Urine Protein Coronavirus (PCR) 01/07/20 01/07/20 01/07/20 00:45 05:26 06:19 RBC Hgb Hct MCV MCHC Plt Count Lymphocytes # APTT D-Dimer ABG pH ABG pCO2 49 H ABG pO2 46 L* ABG HCO3 31 H ABG Total CO2 33 H ABG O2 Saturation 79.7 L VBG pH VBG HCO3 Sodium Potassium Chloride Carbon Dioxide BUN Creatinine Glucose POC Glucose (mg/dL) Plasma Lactic Acid [place] Calcium Magnesium Ferritin AST ALT Lactate Dehydrogenase Creatine Kinase C-Reactive Protein Total Protein Albumin Procalcitonin 0.14 H Urine Protein Trace H Coronavirus (PCR) 01/07/20 01/07/20 01/07/20 06:19 06:19 08:13 RBC Hgb Hct 47.5 H MCV MCHC Plt Count Lymphocytes # APTT D-Dimer ABG pH ABG pCO2 ABG pO2 ABG HCO3 ABG Total CO2 ABG O2 Saturation VBG pH VBG HCO3 Sodium Potassium Chloride 111 H Carbon Dioxide 31 H BUN 23 H Creatinine Glucose 320 H POC Glucose (mg/dL) 299 H Plasma Lactic Acid [place] Calcium Magnesium Ferritin AST ALT Lactate Dehydrogenase 975 H Creatine Kinase C-Reactive Protein 34.0 H Total Protein Albumin Procalcitonin Urine Protein Coronavirus (PCR) 01/07/20 01/07/20 01/07/20 09:32 13:27 18:06 RBC Hgb Hct MCV MCHC Plt Count Lymphocytes # APTT D-Dimer ABG pH ABG pCO2 51 H ABG pO2 109 H ABG HCO3 30 H ABG Total CO2 32 H ABG O2 Saturation 97.7 H VBG pH VBG HCO3 Sodium Potassium Chloride Carbon Dioxide BUN Creatinine Glucose POC Glucose (mg/dL) 208 H 122 H Plasma Lactic Acid [place] Calcium Magnesium Ferritin AST ALT Lactate Dehydrogenase Creatine Kinase C-Reactive Protein Total Protein Albumin Procalcitonin Urine Protein Coronavirus (PCR) 01/07/20 01/08/20 01/08/20 20:53 05:16 05:23 RBC Hgb Hct MCV MCHC Plt Count 140 L Lymphocytes # APTT D-Dimer ABG pH ABG pCO2 ABG pO2 59 L* ABG HCO3 29 H ABG Total CO2 30 H ABG O2 Saturation 90.3 L VBG pH VBG HCO3 Sodium Potassium Chloride Carbon Dioxide BUN Creatinine Glucose POC Glucose (mg/dL) 161 H Plasma Lactic Acid [place] Calcium Magnesium Ferritin AST ALT Lactate Dehydrogenase Creatine Kinase C-Reactive Protein Total Protein Albumin Procalcitonin Urine Protein Coronavirus (PCR) 01/08/20 01/08/20 01/08/20 05:23 05:23 06:24 RBC Hgb Hct MCV MCHC Plt Count Lymphocytes # APTT D-Dimer 1.79 H ABG pH ABG pCO2 ABG pO2 ABG HCO3 ABG Total CO2 ABG O2 Saturation VBG pH VBG HCO3 Sodium Potassium Chloride 109 H Carbon Dioxide 31 H BUN 21 H Creatinine Glucose 187 H POC Glucose (mg/dL) 214 H Plasma Lactic Acid [place] Calcium Magnesium Ferritin 514.5 H AST ALT Lactate Dehydrogenase 817 H Creatine Kinase C-Reactive Protein 25.2 H Total Protein Albumin Procalcitonin Urine Protein Coronavirus (PCR) 01/08/20 01/08/20 01/08/20 12:45 16:55 20:54 RBC Hgb Hct MCV MCHC Plt Count Lymphocytes # APTT D-Dimer ABG pH ABG pCO2 ABG pO2 ABG HCO3 ABG Total CO2 ABG O2 Saturation VBG pH VBG HCO3 Sodium Potassium Chloride Carbon Dioxide BUN Creatinine Glucose POC Glucose (mg/dL) 244 H 221 H 224 H Plasma Lactic Acid [place] Calcium Magnesium Ferritin AST ALT Lactate Dehydrogenase Creatine Kinase C-Reactive Protein Total Protein Albumin Procalcitonin Urine Protein Coronavirus (PCR) 01/09/20 01/09/20 01/09/20 04:09 04:09 05:00 RBC Hgb Hct MCV MCHC Plt Count Lymphocytes # 0.9 L APTT D-Dimer ABG pH ABG pCO2 47 H ABG pO2 77 L ABG HCO3 29 H ABG Total CO2 30 H ABG O2 Saturation VBG pH VBG HCO3 Sodium Potassium Chloride 108 H Carbon Dioxide BUN 18 H Creatinine Glucose 232 H POC Glucose (mg/dL) Plasma Lactic Acid [place] Calcium 8.0 L Magnesium Ferritin 449.2 H AST ALT Lactate Dehydrogenase 877 H Creatine Kinase C-Reactive Protein 39.2 H Total Protein 5.1 L Albumin 2.3 L Procalcitonin Urine Protein Coronavirus (PCR) 01/09/20 01/09/20 01/09/20 05:55 11:43 17:01 RBC Hgb Hct MCV MCHC Plt Count Lymphocytes # APTT D-Dimer ABG pH ABG pCO2 ABG pO2 ABG HCO3 ABG Total CO2 ABG O2 Saturation VBG pH VBG HCO3 Sodium Potassium Chloride Carbon Dioxide BUN Creatinine Glucose POC Glucose (mg/dL) 212 H 198 H 166 H Plasma Lactic Acid [place] Calcium Magnesium Ferritin AST ALT Lactate Dehydrogenase Creatine Kinase C-Reactive Protein Total Protein Albumin Procalcitonin Urine Protein Coronavirus (PCR) 01/09/20 01/10/20 01/10/20 20:48 05:00 05:00 RBC Hgb Hct MCV MCHC Plt Count Lymphocytes # 0.9 L APTT D-Dimer ABG pH ABG pCO2 ABG pO2 ABG HCO3 ABG Total CO2 ABG O2 Saturation VBG pH VBG HCO3 Sodium Potassium 3.3 L Chloride 109 H Carbon Dioxide 32 H BUN Creatinine 0.48 L Glucose 125 H POC Glucose (mg/dL) 142 H Plasma Lactic Acid [place] Calcium 8.2 L Magnesium Ferritin 457.7 H AST ALT Lactate Dehydrogenase 762 H Creatine Kinase <20 L C-Reactive Protein 39.5 H Total Protein 5.0 L Albumin 2.2 L Procalcitonin Urine Protein Coronavirus (PCR) 01/10/20 01/10/20 01/10/20 05:00 05:54 06:24 RBC Hgb Hct MCV MCHC Plt Count Lymphocytes # APTT D-Dimer 1.23 H ABG pH ABG pCO2 52 H ABG pO2 59 L* ABG HCO3 31 H ABG Total CO2 33 H ABG O2 Saturation 90.2 L VBG pH VBG HCO3 Sodium Potassium Chloride Carbon Dioxide BUN Creatinine Glucose POC Glucose (mg/dL) 120 H Plasma Lactic Acid [place] Calcium Magnesium Ferritin AST ALT Lactate Dehydrogenase Creatine Kinase C-Reactive Protein Total Protein Albumin Procalcitonin Urine Protein Coronavirus (PCR) 01/10/20 01/10/20 01/11/20 11:46 17:37 03:21 RBC Hgb Hct MCV MCHC Plt Count Lymphocytes # 0.9 L APTT D-Dimer ABG pH ABG pCO2 ABG pO2 ABG HCO3 ABG Total CO2 ABG O2 Saturation VBG pH VBG HCO3 Sodium Potassium Chloride Carbon Dioxide BUN Creatinine Glucose POC Glucose (mg/dL) 114 H 113 H Plasma Lactic Acid [place] Calcium Magnesium Ferritin AST ALT Lactate Dehydrogenase Creatine Kinase C-Reactive Protein Total Protein Albumin Procalcitonin Urine Protein Coronavirus (PCR) 01/11/20 01/11/20 01/11/20 03:21 05:09 07:03 RBC Hgb Hct MCV MCHC Plt Count Lymphocytes # APTT D-Dimer ABG pH 7.46 H ABG pCO2 51 H ABG pO2 58 L* ABG HCO3 37 H ABG Total CO2 38 H ABG O2 Saturation 90.8 L VBG pH VBG HCO3 Sodium Potassium Chloride Carbon Dioxide 36 H BUN Creatinine 0.50 L Glucose 136 H POC Glucose (mg/dL) 115 H Plasma Lactic Acid [place] Calcium Magnesium Ferritin 477.8 H AST 58 H ALT 43 H Lactate Dehydrogenase 926 H Creatine Kinase <20 L C-Reactive Protein 39.2 H Total Protein 5.3 L Albumin 2.4 L Procalcitonin Urine Protein Coronavirus (PCR) 01/11/20 01/11/20 01/11/20 11:41 17:58 23:46 RBC Hgb Hct MCV MCHC Plt Count Lymphocytes # APTT D-Dimer ABG pH ABG pCO2 ABG pO2 ABG HCO3 ABG Total CO2 ABG O2 Saturation VBG pH VBG HCO3 Sodium Potassium Chloride Carbon Dioxide BUN Creatinine Glucose POC Glucose (mg/dL) 142 H 267 H 290 H Plasma Lactic Acid [place] Calcium Magnesium Ferritin AST ALT Lactate Dehydrogenase Creatine Kinase C-Reactive Protein Total Protein Albumin Procalcitonin Urine Protein Coronavirus (PCR) 01/12/20 01/12/20 01/12/20 05:07 05:22 06:17 RBC Hgb Hct MCV MCHC Plt Count Lymphocytes # APTT D-Dimer ABG pH 7.46 H ABG pCO2 52 H ABG pO2 62 L ABG HCO3 37 H ABG Total CO2 39 H ABG O2 Saturation 91.7 L VBG pH VBG HCO3 Sodium Potassium Chloride Carbon Dioxide BUN Creatinine Glucose POC Glucose (mg/dL) 261 H Plasma Lactic Acid [place] Calcium Magnesium Ferritin AST ALT Lactate Dehydrogenase 764 H Creatine Kinase 24 L C-Reactive Protein 26.0 H Total Protein Albumin Procalcitonin Urine Protein Coronavirus (PCR) 01/12/20 01/12/20 01/12/20 07:10 07:45 07:45 RBC Hgb Hct MCV MCHC Plt Count Lymphocytes # 0.8 L APTT D-Dimer ABG pH ABG pCO2 ABG pO2 ABG HCO3 ABG Total CO2 ABG O2 Saturation VBG pH VBG HCO3 Sodium Potassium Chloride Carbon Dioxide 38 H BUN 20 H Creatinine Glucose 275 H POC Glucose (mg/dL) Plasma Lactic Acid [place] Calcium Magnesium Ferritin 592.5 H AST 77 H ALT 78 H Lactate Dehydrogenase Creatine Kinase C-Reactive Protein Total Protein 5.6 L Albumin 2.6 L Procalcitonin Urine Protein Coronavirus (PCR) 01/12/20 01/12/20 01/12/20 11:26 17:23 23:54 RBC Hgb Hct MCV MCHC Plt Count Lymphocytes # APTT D-Dimer ABG pH ABG pCO2 ABG pO2 ABG HCO3 ABG Total CO2 ABG O2 Saturation VBG pH VBG HCO3 Sodium Potassium Chloride Carbon Dioxide BUN Creatinine Glucose POC Glucose (mg/dL) 259 H 256 H 260 H Plasma Lactic Acid [place] Calcium Magnesium Ferritin AST ALT Lactate Dehydrogenase Creatine Kinase C-Reactive Protein Total Protein Albumin Procalcitonin Urine Protein Coronavirus (PCR) 01/13/20 01/13/20 01/13/20 04:57 05:05 05:05 RBC Hgb Hct MCV MCHC Plt Count Lymphocytes # 0.6 L APTT D-Dimer 0.68 H ABG pH 7.51 H ABG pCO2 46 H ABG pO2 ABG HCO3 36 H ABG Total CO2 38 H ABG O2 Saturation 97.1 H VBG pH VBG HCO3 Sodium Potassium Chloride Carbon Dioxide BUN Creatinine Glucose POC Glucose (mg/dL) Plasma Lactic Acid [place] Calcium Magnesium Ferritin AST ALT Lactate Dehydrogenase Creatine Kinase C-Reactive Protein Total Protein Albumin Procalcitonin Urine Protein Coronavirus (PCR) 01/13/20 01/13/20 01/13/20 05:05 05:57 12:02 RBC Hgb Hct MCV MCHC Plt Count Lymphocytes # APTT D-Dimer ABG pH ABG pCO2 ABG pO2 ABG HCO3 ABG Total CO2 ABG O2 Saturation VBG pH VBG HCO3 Sodium Potassium Chloride Carbon Dioxide 39 H BUN 28 H Creatinine Glucose 273 H POC Glucose (mg/dL) 253 H 268 H Plasma Lactic Acid [place] Calcium Magnesium Ferritin 462.4 H AST 87 H ALT 92 H Lactate Dehydrogenase 765 H Creatine Kinase <20 L C-Reactive Protein 14.8 H Total Protein 5.2 L Albumin 2.5 L Procalcitonin Urine Protein Coronavirus (PCR) 01/13/20 01/13/20 01/14/20 17:07 19:52 00:00 RBC Hgb Hct MCV MCHC Plt Count Lymphocytes # APTT D-Dimer ABG pH ABG pCO2 ABG pO2 ABG HCO3 ABG Total CO2 ABG O2 Saturation VBG pH VBG HCO3 Sodium Potassium Chloride Carbon Dioxide BUN Creatinine Glucose POC Glucose (mg/dL) 232 H 230 H 232 H Plasma Lactic Acid [place] Calcium Magnesium Ferritin AST ALT Lactate Dehydrogenase Creatine Kinase C-Reactive Protein Total Protein Albumin Procalcitonin Urine Protein Coronavirus (PCR) 01/14/20 01/14/20 01/14/20 04:04 04:49 05:31 RBC Hgb Hct MCV MCHC Plt Count Lymphocytes # 0.8 L APTT D-Dimer ABG pH 7.55 H ABG pCO2 ABG pO2 79 L ABG HCO3 36 H ABG Total CO2 37 H ABG O2 Saturation VBG pH VBG HCO3 Sodium Potassium Chloride Carbon Dioxide BUN Creatinine Glucose POC Glucose (mg/dL) 278 H Plasma Lactic Acid [place] Calcium Magnesium Ferritin AST ALT Lactate Dehydrogenase Creatine Kinase C-Reactive Protein Total Protein Albumin Procalcitonin Urine Protein Coronavirus (PCR) 01/14/20 01/14/20 01/14/20 05:31 08:18 11:54 RBC Hgb Hct MCV MCHC Plt Count Lymphocytes # APTT D-Dimer ABG pH ABG pCO2 ABG pO2 ABG HCO3 ABG Total CO2 ABG O2 Saturation VBG pH VBG HCO3 Sodium Potassium Chloride Carbon Dioxide 34 H BUN 30 H Creatinine Glucose 270 H POC Glucose (mg/dL) 239 H 245 H Plasma Lactic Acid [place] Calcium Magnesium Ferritin 433.2 H AST 65 H ALT 98 H Lactate Dehydrogenase Creatine Kinase <20 L C-Reactive Protein Total Protein 5.4 L Albumin 2.6 L Procalcitonin Urine Protein Coronavirus (PCR) 01/14/20 01/14/20 01/15/20 16:31 20:53 00:27 RBC Hgb Hct MCV MCHC Plt Count Lymphocytes # APTT D-Dimer ABG pH ABG pCO2 ABG pO2 ABG HCO3 ABG Total CO2 ABG O2 Saturation VBG pH VBG HCO3 Sodium Potassium Chloride Carbon Dioxide BUN Creatinine Glucose POC Glucose (mg/dL) 209 H 236 H 206 H Plasma Lactic Acid [place] Calcium Magnesium Ferritin AST ALT Lactate Dehydrogenase Creatine Kinase C-Reactive Protein Total Protein Albumin Procalcitonin Urine Protein Coronavirus (PCR) 01/15/20 01/15/20 01/15/20 04:44 05:00 05:17 RBC Hgb Hct MCV MCHC Plt Count Lymphocytes # APTT D-Dimer ABG pH 7.46 H ABG pCO2 52 H ABG pO2 52 L* ABG HCO3 37 H ABG Total CO2 39 H ABG O2 Saturation 87.0 L VBG pH VBG HCO3 Sodium Potassium Chloride Carbon Dioxide 36 H BUN 26 H Creatinine 0.46 L Glucose 158 H POC Glucose (mg/dL) 153 H Plasma Lactic Acid [place] Calcium Magnesium Ferritin 520.7 H AST 41 H ALT 64 H Lactate Dehydrogenase 713 H Creatine Kinase <20 L C-Reactive Protein Total Protein 4.7 L Albumin 2.2 L Procalcitonin Urine Protein Coronavirus (PCR) 01/15/20 01/15/20 01/15/20 08:08 12:18 15:41 RBC Hgb Hct MCV MCHC Plt Count Lymphocytes # APTT D-Dimer ABG pH ABG pCO2 ABG pO2 ABG HCO3 ABG Total CO2 ABG O2 Saturation VBG pH VBG HCO3 Sodium Potassium Chloride Carbon Dioxide BUN Creatinine Glucose POC Glucose (mg/dL) 128 H 168 H 232 H Plasma Lactic Acid [place] Calcium Magnesium Ferritin AST ALT Lactate Dehydrogenase Creatine Kinase C-Reactive Protein Total Protein Albumin Procalcitonin Urine Protein Coronavirus (PCR) 01/15/20 01/16/20 01/16/20 20:04 00:06 03:07 RBC Hgb Hct MCV MCHC Plt Count Lymphocytes # APTT D-Dimer ABG pH ABG pCO2 ABG pO2 ABG HCO3 ABG Total CO2 ABG O2 Saturation VBG pH VBG HCO3 Sodium Potassium Chloride Carbon Dioxide BUN Creatinine Glucose POC Glucose (mg/dL) 207 H 177 H 173 H Plasma Lactic Acid [place] Calcium Magnesium Ferritin AST ALT Lactate Dehydrogenase Creatine Kinase C-Reactive Protein Total Protein Albumin Procalcitonin Urine Protein Coronavirus (PCR) 01/16/20 01/16/20 01/16/20 04:10 04:10 05:45 RBC Hgb Hct MCV MCHC Plt Count Lymphocytes # APTT D-Dimer ABG pH 7.46 H ABG pCO2 51 H ABG pO2 54 L* ABG HCO3 36 H ABG Total CO2 38 H ABG O2 Saturation 88.5 L VBG pH VBG HCO3 Sodium Potassium Chloride Carbon Dioxide 31 H BUN 26 H Creatinine 0.40 L Glucose 168 H POC Glucose (mg/dL) 157 H Plasma Lactic Acid [place] Calcium Magnesium Ferritin 617.0 H AST ALT 47 H Lactate Dehydrogenase Creatine Kinase C-Reactive Protein Total Protein 4.8 L Albumin 2.2 L Procalcitonin Urine Protein Coronavirus (PCR) 01/16/20 01/16/20 01/16/20 08:22 12:11 15:54 RBC Hgb Hct MCV MCHC Plt Count Lymphocytes # APTT D-Dimer ABG pH ABG pCO2 ABG pO2 ABG HCO3 ABG Total CO2 ABG O2 Saturation VBG pH VBG HCO3 Sodium Potassium Chloride Carbon Dioxide BUN Creatinine Glucose POC Glucose (mg/dL) 135 H 218 H 248 H Plasma Lactic Acid [place] Calcium Magnesium Ferritin AST ALT Lactate Dehydrogenase Creatine Kinase C-Reactive Protein Total Protein Albumin Procalcitonin Urine Protein Coronavirus (PCR) 01/16/20 01/16/20 01/16/20 17:37 20:39 23:47 RBC Hgb Hct MCV MCHC Plt Count Lymphocytes # APTT D-Dimer ABG pH ABG pCO2 ABG pO2 ABG HCO3 ABG Total CO2 ABG O2 Saturation VBG pH VBG HCO3 Sodium Potassium Chloride Carbon Dioxide BUN Creatinine Glucose POC Glucose (mg/dL) 305 H 231 H 244 H Plasma Lactic Acid [place] Calcium Magnesium Ferritin AST ALT Lactate Dehydrogenase Creatine Kinase C-Reactive Protein Total Protein Albumin Procalcitonin Urine Protein Coronavirus (PCR) 01/17/20 01/17/20 01/17/20 04:23 04:23 04:28 RBC Hgb Hct MCV MCHC Plt Count 116 L Lymphocytes # APTT D-Dimer ABG pH ABG pCO2 ABG pO2 ABG HCO3 ABG Total CO2 ABG O2 Saturation VBG pH VBG HCO3 Sodium Potassium 3.3 L Chloride Carbon Dioxide 34 H BUN 30 H Creatinine 0.47 L Glucose 191 H POC Glucose (mg/dL) 184 H Plasma Lactic Acid [place] Calcium Magnesium Ferritin 391.6 H AST ALT 43 H Lactate Dehydrogenase Creatine Kinase C-Reactive Protein Total Protein 6.0 L Albumin 2.9 L Procalcitonin Urine Protein Coronavirus (PCR) 01/17/20 01/17/20 01/17/20 05:15 07:53 11:57 RBC Hgb Hct MCV MCHC Plt Count Lymphocytes # APTT D-Dimer ABG pH 7.48 H ABG pCO2 49 H ABG pO2 ABG HCO3 36 H ABG Total CO2 38 H ABG O2 Saturation VBG pH VBG HCO3 Sodium Potassium Chloride Carbon Dioxide BUN Creatinine Glucose POC Glucose (mg/dL) 135 H 169 H Plasma Lactic Acid [place] Calcium Magnesium Ferritin AST ALT Lactate Dehydrogenase Creatine Kinase C-Reactive Protein Total Protein Albumin Procalcitonin Urine Protein Coronavirus (PCR) 01/17/20 01/17/20 01/17/20 16:54 20:07 23:49 RBC Hgb Hct MCV MCHC Plt Count Lymphocytes # APTT D-Dimer ABG pH ABG pCO2 ABG pO2 ABG HCO3 ABG Total CO2 ABG O2 Saturation VBG pH VBG HCO3 Sodium Potassium Chloride Carbon Dioxide BUN Creatinine Glucose POC Glucose (mg/dL) 236 H 232 H 191 H Plasma Lactic Acid [place] Calcium Magnesium Ferritin AST ALT Lactate Dehydrogenase Creatine Kinase C-Reactive Protein Total Protein Albumin Procalcitonin Urine Protein Coronavirus (PCR) 01/18/20 01/18/20 01/18/20 04:14 06:10 11:41 RBC Hgb Hct MCV MCHC Plt Count Lymphocytes # APTT D-Dimer ABG pH ABG pCO2 59 H ABG pO2 59 L* ABG HCO3 39 H ABG Total CO2 40 H ABG O2 Saturation 89.4 L VBG pH VBG HCO3 Sodium Potassium 3.3 L Chloride Carbon Dioxide 37 H BUN 29 H Creatinine 0.49 L Glucose 114 H POC Glucose (mg/dL) 160 H Plasma Lactic Acid [place] Calcium Magnesium Ferritin 338.1 H AST ALT Lactate Dehydrogenase Creatine Kinase C-Reactive Protein 11.8 H Total Protein 5.2 L Albumin 2.5 L Procalcitonin Urine Protein Coronavirus (PCR) 01/18/20 01/18/20 01/19/20 16:09 21:02 00:11 RBC Hgb Hct MCV MCHC Plt Count Lymphocytes # APTT D-Dimer ABG pH ABG pCO2 ABG pO2 ABG HCO3 ABG Total CO2 ABG O2 Saturation VBG pH VBG HCO3 Sodium Potassium Chloride Carbon Dioxide BUN Creatinine Glucose POC Glucose (mg/dL) 249 H 202 H 174 H Plasma Lactic Acid [place] Calcium Magnesium Ferritin AST ALT Lactate Dehydrogenase Creatine Kinase C-Reactive Protein Total Protein Albumin Procalcitonin Urine Protein Coronavirus (PCR) 01/19/20 01/19/20 01/19/20 04:10 05:06 05:10 RBC Hgb Hct MCV MCHC Plt Count Lymphocytes # APTT D-Dimer ABG pH 7.47 H ABG pCO2 52 H ABG pO2 52 L* ABG HCO3 38 H ABG Total CO2 40 H ABG O2 Saturation 87.0 L VBG pH VBG HCO3 Sodium Potassium 3.4 L Chloride Carbon Dioxide 37 H BUN 29 H Creatinine 0.45 L Glucose 158 H POC Glucose (mg/dL) 139 H Plasma Lactic Acid [place] Calcium Magnesium Ferritin 351.8 H AST ALT Lactate Dehydrogenase Creatine Kinase <20 L C-Reactive Protein 10.6 H Total Protein 5.5 L Albumin 2.7 L Procalcitonin Urine Protein Coronavirus (PCR) 01/19/20 01/19/20 01/19/20 08:19 11:50 17:09 RBC Hgb Hct MCV MCHC Plt Count Lymphocytes # APTT D-Dimer ABG pH ABG pCO2 ABG pO2 ABG HCO3 ABG Total CO2 ABG O2 Saturation VBG pH VBG HCO3 Sodium Potassium Chloride Carbon Dioxide BUN Creatinine Glucose POC Glucose (mg/dL) 147 H 177 H 141 H Plasma Lactic Acid [place] Calcium Magnesium Ferritin AST ALT Lactate Dehydrogenase Creatine Kinase C-Reactive Protein Total Protein Albumin Procalcitonin Urine Protein Coronavirus (PCR) 01/19/20 01/19/20 01/19/20 19:58 19:59 23:31 RBC Hgb Hct MCV MCHC Plt Count Lymphocytes # APTT D-Dimer ABG pH ABG pCO2 ABG pO2 ABG HCO3 ABG Total CO2 ABG O2 Saturation VBG pH VBG HCO3 Sodium Potassium Chloride Carbon Dioxide BUN Creatinine Glucose POC Glucose (mg/dL) 267 H 278 H 153 H Plasma Lactic Acid [place] Calcium Magnesium Ferritin AST ALT Lactate Dehydrogenase Creatine Kinase C-Reactive Protein Total Protein Albumin Procalcitonin Urine Protein Coronavirus (PCR) 01/20/20 01/20/20 01/20/20 04:00 04:00 04:04 RBC Hgb Hct MCV MCHC 30.9 L Plt Count Lymphocytes # APTT D-Dimer ABG pH ABG pCO2 ABG pO2 ABG HCO3 ABG Total CO2 ABG O2 Saturation VBG pH VBG HCO3 Sodium Potassium 3.4 L Chloride Carbon Dioxide 37 H BUN 31 H Creatinine Glucose 150 H POC Glucose (mg/dL) 149 H Plasma Lactic Acid [place] Calcium Magnesium Ferritin 346.0 H AST ALT Lactate Dehydrogenase Creatine Kinase <20 L C-Reactive Protein Total Protein 5.5 L Albumin 2.7 L Procalcitonin Urine Protein Coronavirus (PCR) 01/20/20 01/20/20 01/20/20 04:49 08:46 11:34 RBC Hgb Hct MCV MCHC Plt Count Lymphocytes # APTT D-Dimer ABG pH 7.51 H ABG pCO2 52 H ABG pO2 68 L 50 L* ABG HCO3 36 H 36 H ABG Total CO2 37 H 38 H ABG O2 Saturation 84.6 L VBG pH VBG HCO3 Sodium Potassium Chloride Carbon Dioxide BUN Creatinine Glucose POC Glucose (mg/dL) 131 H Plasma Lactic Acid [place] Calcium Magnesium Ferritin AST ALT Lactate Dehydrogenase Creatine Kinase C-Reactive Protein Total Protein Albumin Procalcitonin Urine Protein Coronavirus (PCR) 01/20/20 01/20/20 01/20/20 11:54 15:49 19:59 RBC Hgb Hct MCV MCHC Plt Count Lymphocytes # APTT D-Dimer ABG pH ABG pCO2 ABG pO2 ABG HCO3 ABG Total CO2 ABG O2 Saturation VBG pH VBG HCO3 Sodium Potassium Chloride Carbon Dioxide BUN Creatinine Glucose POC Glucose (mg/dL) 182 H 234 H 236 H Plasma Lactic Acid [place] Calcium Magnesium Ferritin AST ALT Lactate Dehydrogenase Creatine Kinase C-Reactive Protein Total Protein Albumin Procalcitonin Urine Protein Coronavirus (PCR) 01/20/20 01/21/20 01/21/20 23:51 04:37 05:24 RBC Hgb Hct MCV MCHC Plt Count Lymphocytes # APTT D-Dimer ABG pH ABG pCO2 ABG pO2 ABG HCO3 ABG Total CO2 ABG O2 Saturation VBG pH VBG HCO3 Sodium Potassium Chloride Carbon Dioxide 34 H BUN 34 H Creatinine 0.48 L Glucose 162 H POC Glucose (mg/dL) 178 H 153 H Plasma Lactic Acid [place] Calcium 10.3 H Magnesium Ferritin 441.2 H AST ALT Lactate Dehydrogenase Creatine Kinase <20 L C-Reactive Protein 11.4 H Total Protein 6.0 L Albumin 3.0 L Procalcitonin Urine Protein Coronavirus (PCR) 01/21/20 01/21/20 01/21/20 05:57 08:00 11:33 RBC Hgb Hct MCV MCHC Plt Count Lymphocytes # APTT D-Dimer ABG pH ABG pCO2 53 H ABG pO2 55 L* ABG HCO3 36 H ABG Total CO2 38 H ABG O2 Saturation 88.2 L VBG pH VBG HCO3 Sodium Potassium Chloride Carbon Dioxide BUN Creatinine Glucose POC Glucose (mg/dL) 174 H 173 H Plasma Lactic Acid [place] Calcium Magnesium Ferritin AST ALT Lactate Dehydrogenase Creatine Kinase C-Reactive Protein Total Protein Albumin Procalcitonin Urine Protein Coronavirus (PCR) 01/21/20 01/21/20 01/21/20 16:30 20:49 23:58 RBC Hgb Hct MCV MCHC Plt Count Lymphocytes # APTT D-Dimer ABG pH ABG pCO2 ABG pO2 ABG HCO3 ABG Total CO2 ABG O2 Saturation VBG pH VBG HCO3 Sodium Potassium Chloride Carbon Dioxide BUN Creatinine Glucose POC Glucose (mg/dL) 288 H 230 H 121 H Plasma Lactic Acid [place] Calcium Magnesium Ferritin AST ALT Lactate Dehydrogenase Creatine Kinase C-Reactive Protein Total Protein Albumin Procalcitonin Urine Protein Coronavirus (PCR) 01/22/20 01/22/20 01/22/20 03:52 04:02 04:02 RBC Hgb Hct MCV MCHC Plt Count 116 L Lymphocytes # APTT D-Dimer ABG pH ABG pCO2 ABG pO2 ABG HCO3 ABG Total CO2 ABG O2 Saturation VBG pH VBG HCO3 Sodium Potassium Chloride Carbon Dioxide 36 H BUN 35 H Creatinine 0.47 L Glucose 123 H POC Glucose (mg/dL) 115 H Plasma Lactic Acid [place] Calcium 10.3 H Magnesium Ferritin 375.7 H AST ALT Lactate Dehydrogenase Creatine Kinase <20 L C-Reactive Protein 12.6 H Total Protein 5.8 L Albumin 3.0 L Procalcitonin Urine Protein Coronavirus (PCR) 01/22/20 01/22/20 01/22/20 04:47 08:45 11:40 RBC Hgb Hct MCV MCHC Plt Count Lymphocytes # APTT D-Dimer ABG pH ABG pCO2 56 H ABG pO2 65 L ABG HCO3 38 H ABG Total CO2 40 H ABG O2 Saturation 92.5 L VBG pH VBG HCO3 Sodium Potassium Chloride Carbon Dioxide BUN Creatinine Glucose POC Glucose (mg/dL) 101 H 157 H Plasma Lactic Acid [place] Calcium Magnesium Ferritin AST ALT Lactate Dehydrogenase Creatine Kinase C-Reactive Protein Total Protein Albumin Procalcitonin Urine Protein Coronavirus (PCR) 01/22/20 01/22/20 01/23/20 15:27 19:56 00:03 RBC Hgb Hct MCV MCHC Plt Count Lymphocytes # APTT D-Dimer ABG pH ABG pCO2 ABG pO2 ABG HCO3 ABG Total CO2 ABG O2 Saturation VBG pH VBG HCO3 Sodium Potassium Chloride Carbon Dioxide BUN Creatinine Glucose POC Glucose (mg/dL) 259 H 239 H 177 H Plasma Lactic Acid [place] Calcium Magnesium Ferritin AST ALT Lactate Dehydrogenase Creatine Kinase C-Reactive Protein Total Protein Albumin Procalcitonin Urine Protein Coronavirus (PCR) 01/23/20 01/23/20 01/23/20 03:51 04:23 04:23 RBC Hgb Hct MCV MCHC Plt Count 149 L Lymphocytes # APTT D-Dimer ABG pH ABG pCO2 ABG pO2 ABG HCO3 ABG Total CO2 ABG O2 Saturation VBG pH VBG HCO3 Sodium Potassium Chloride Carbon Dioxide 33 H BUN 36 H Creatinine 0.41 L Glucose 122 H POC Glucose (mg/dL) 115 H Plasma Lactic Acid [place] Calcium 10.4 H Magnesium Ferritin 474.7 H AST ALT Lactate Dehydrogenase 942 H Creatine Kinase <20 L C-Reactive Protein 13.7 H Total Protein Albumin 3.1 L Procalcitonin Urine Protein Coronavirus (PCR) 01/23/20 01/23/20 01/23/20 05:05 07:57 11:25 RBC Hgb Hct MCV MCHC Plt Count Lymphocytes # APTT D-Dimer ABG pH 7.46 H ABG pCO2 56 H ABG pO2 57 L* ABG HCO3 40 H* ABG Total CO2 41 H ABG O2 Saturation 89.7 L VBG pH VBG HCO3 Sodium Potassium Chloride Carbon Dioxide BUN Creatinine Glucose POC Glucose (mg/dL) 104 H 188 H Plasma Lactic Acid [place] Calcium Magnesium Ferritin AST ALT Lactate Dehydrogenase Creatine Kinase C-Reactive Protein Total Protein Albumin Procalcitonin Urine Protein Coronavirus (PCR) 01/23/20 01/23/20 01/24/20 17:01 20:51 00:08 RBC Hgb Hct MCV MCHC Plt Count Lymphocytes # APTT D-Dimer ABG pH ABG pCO2 ABG pO2 ABG HCO3 ABG Total CO2 ABG O2 Saturation VBG pH VBG HCO3 Sodium Potassium Chloride Carbon Dioxide BUN Creatinine Glucose POC Glucose (mg/dL) 315 H 308 H 291 H Plasma Lactic Acid [place] Calcium Magnesium Ferritin AST ALT Lactate Dehydrogenase Creatine Kinase C-Reactive Protein Total Protein Albumin Procalcitonin Urine Protein Coronavirus (PCR) 01/24/20 01/24/20 01/24/20 04:15 04:28 05:20 RBC Hgb Hct MCV MCHC Plt Count Lymphocytes # APTT D-Dimer ABG pH ABG pCO2 55 H ABG pO2 69 L ABG HCO3 38 H ABG Total CO2 40 H ABG O2 Saturation 93.9 L VBG pH VBG HCO3 Sodium Potassium 3.3 L Chloride Carbon Dioxide 39 H BUN 47 H Creatinine Glucose 179 H POC Glucose (mg/dL) 164 H Plasma Lactic Acid [place] Calcium 10.4 H Magnesium Ferritin 420.1 H AST ALT Lactate Dehydrogenase Creatine Kinase <20 L C-Reactive Protein 12.2 H Total Protein 6.0 L Albumin 3.1 L Procalcitonin Urine Protein Coronavirus (PCR) 01/24/20 01/24/20 01/24/20 07:58 11:12 12:15 RBC Hgb Hct MCV MCHC Plt Count Lymphocytes # APTT D-Dimer ABG pH ABG pCO2 ABG pO2 ABG HCO3 ABG Total CO2 ABG O2 Saturation VBG pH VBG HCO3 Sodium Potassium 3.3 L Chloride Carbon Dioxide BUN Creatinine Glucose POC Glucose (mg/dL) 120 H 125 H Plasma Lactic Acid [place] Calcium Magnesium Ferritin AST ALT Lactate Dehydrogenase Creatine Kinase C-Reactive Protein Total Protein Albumin Procalcitonin Urine Protein Coronavirus (PCR) 01/24/20 01/24/20 01/24/20 16:53 20:18 22:57 RBC Hgb Hct MCV MCHC Plt Count Lymphocytes # APTT D-Dimer ABG pH ABG pCO2 ABG pO2 ABG HCO3 ABG Total CO2 ABG O2 Saturation VBG pH VBG HCO3 Sodium Potassium Chloride Carbon Dioxide BUN Creatinine Glucose POC Glucose (mg/dL) 166 H 139 H 158 H Plasma Lactic Acid [place] Calcium Magnesium Ferritin AST ALT Lactate Dehydrogenase Creatine Kinase C-Reactive Protein Total Protein Albumin Procalcitonin Urine Protein Coronavirus (PCR) 01/25/20 01/25/20 01/25/20 04:00 05:12 11:15 RBC Hgb Hct MCV MCHC Plt Count Lymphocytes # APTT D-Dimer ABG pH 7.47 H ABG pCO2 52 H ABG pO2 70 L ABG HCO3 37 H ABG Total CO2 39 H ABG O2 Saturation VBG pH VBG HCO3 Sodium Potassium Chloride Carbon Dioxide 39 H BUN 40 H Creatinine 0.47 L Glucose 134 H POC Glucose (mg/dL) 130 H Plasma Lactic Acid [place] Calcium Magnesium Ferritin 372.8 H AST ALT Lactate Dehydrogenase Creatine Kinase C-Reactive Protein 14.1 H Total Protein 5.6 L Albumin 2.8 L Procalcitonin Urine Protein Coronavirus (PCR) 01/25/20 15:26 RBC Hgb Hct MCV MCHC Plt Count Lymphocytes # APTT D-Dimer ABG pH ABG pCO2 ABG pO2 ABG HCO3 ABG Total CO2 ABG O2 Saturation VBG pH VBG HCO3 Sodium Potassium Chloride Carbon Dioxide BUN Creatinine Glucose POC Glucose (mg/dL) 194 H Plasma Lactic Acid [place] Calcium Magnesium Ferritin AST ALT Lactate Dehydrogenase Creatine Kinase C-Reactive Protein Total Protein Albumin Procalcitonin Urine Protein Coronavirus (PCR) Assessment and Plan Assessment: * Acute hypoxic respiratory failure secondary to COVID-19 pneumonia. Patient also has gram-negative capsular pneumonia, healthcare associated pneumonia. * Seizure type activity noticed, which likely is secondary to hypoxemia. EEG showed no epileptiform activity. * Multiple other medical conditions as per IM, ID, critical care notes. Plan: * No indication for antiepileptic medication, as EEG showed no epileptiform activity. * Your medical management. * Patient is being discharged to select care specialty. * This is a problem focused consultation. Time with Patient: Less than 30
--- NOTE | 2020-01-26 10:58 | CDI ---
Documentation Clarification Form Date: 01/26/20 From: Mell Abreu CCS Phone: If you have a question about this query, please contact Sindy Dan, Assistant Press Operator at [phone] between 8am and 5pm. Admit Date: 12/28/19 Discharge Date:01/25/20 Patient Name: Soledad Enriquez Visit Number: [id number] ATTENTION: The Clinical Documentation Specialists (CDI) and [facility] Coding Staff appreciate your assistance in clarifying documentation. Please respond to the clarification below the line at the bottom and electronically sign. The CDI & [facility] Coding staff will review the response and follow-up if needed. Please note: Queries are made part of the Legal Health Record. If you have any questions, please contact the author of this message via ITS. Dear Dr. Dominguez, The patient presented with the pneumonia due to COVID. In response to the query for Levophed, you documented: Sepsis with septic shock, likely related to COVID-19 virus Patient was admitted on 12/27- Levophed was started on 01/06. Progress Note 01/06 documents: Around 7:00 am this morning patient was on the floor she was having worsening shortness of breath and using accessory muscles she was on nonrebreather mask and her O2 sat duration was 88% Dr. Caba senior media buyer was contacted patient was transferred to ICU she was intubated sedated and started on mechanical ventilation, she was also started on levophed for blood pressure support. History/Risk Factors: COVID, PNA, PEG status, CVA sequelae, COPD, Anemia Clinical Indicators: Hypotension, Tachycardia, Metabolic Encephalopathy, Acute Respiratory Failure WBC: 5.3, 4.8, 8.6 Lactic acid: 2.1, 1.1 Blood cultures: No growth after 144 hours Vitals signs on admission: BP 125/67, RR 22, ME 89, O2 Sat 96 Treatment: Zithromax 500 mg IVPB, Rocephin 2 gm IVPB, Zosyn 3.375 gm IVPB ID Consult: Ángel In your professional opinion, please clarify if the sepsis is POA? Condition Sepsis POA Sepsis Not POA Other, please specify Unable to determine SIRS Criteria (2 or more of the following may indicate SIRS): -Temperature < 96.8F (36C) or > 101.0F (38.3C) -Heart Rate > 90 bpm -Respiratory Rate > 20 breaths/min or PaCO2 < 32 mmHg -White Blood Cell Count > 12,000 or < 4,000 cells/mm3 or > 10% bands -Lactate >2.0 mmol/L (>4.0 is equivalent to septic shock) sepsis POA MTDD
== END 2020-01-25 17:02 | DRG 870 ==
LOC: EC 17:25 → 3SCARD 19:12 → 2SICU 01-07 05:46
PROVIDERS: ADMIT Internal Medicine; ATTEND Internal Medicine
PROC: 3E0G76Z Introduction of Nutritional Substance into Upper GI, Via Natural or Artificial Opening (ICD-10-PCS; 2019-12-29)
PROC: 5A1955Z Respiratory Ventilation, Greater than 96 Consecutive Hours (ICD-10-PCS; principal; 2020-01-07)
PROC: 0BH17EZ Insertion of Endotracheal Airway into Trachea, Via Natural or Artificial Opening (ICD-10-PCS; 2020-01-07)
PROC: 3E033XZ Introduction of Vasopressor into Peripheral Vein, Percutaneous Approach (ICD-10-PCS; 2020-01-07)
PROC: 02H633Z Insertion of Infusion Device into Right Atrium, Percutaneous Approach (ICD-10-PCS; 2020-01-09)
PROC: 05H933Z Insertion of Infusion Device into Right Brachial Vein, Percutaneous Approach (ICD-10-PCS; 2020-01-19)
PROC: 05HF33Z Insertion of Infusion Device into Left Cephalic Vein, Percutaneous Approach (ICD-10-PCS; 2020-01-23)
DX: A41.89 Other specified sepsis (principal); U07.1 COVID-19; J69.0 Pneumonitis due to inhalation of food and vomit; J12.89 Other viral pneumonia; J96.01 Acute respiratory failure with hypoxia; R65.21 Severe sepsis with septic shock; G93.41 Metabolic encephalopathy; J15.0 Pneumonia due to Klebsiella pneumoniae; J44.0 Chronic obstructive pulmonary disease with (acute) lower respiratory infection; E87.0 Hyperosmolality and hypernatremia; E87.3 Alkalosis; I69.351 Hemiplegia and hemiparesis following cerebral infarction affecting right dominant side; R47.01 Aphasia; N39.0 Urinary tract infection, site not specified; J98.11 Atelectasis; R56.9 Unspecified convulsions; D69.6 Thrombocytopenia, unspecified; D63.8 Anemia in other chronic diseases classified elsewhere; F01.50 Vascular dementia, unspecified severity, without behavioral disturbance, psychotic disturbance, mood disturbance, and anxiety; I11.9 Hypertensive heart disease without heart failure; I48.0 Paroxysmal atrial fibrillation; E11.65 Type 2 diabetes mellitus with hyperglycemia; E78.5 Hyperlipidemia, unspecified; Z79.4 Long term (current) use of insulin; Z93.1 Gastrostomy status; R13.10 Dysphagia, unspecified; M19.90 Unspecified osteoarthritis, unspecified site; R15.9 Full incontinence of feces; R32 Unspecified urinary incontinence; H40.9 Unspecified glaucoma; E86.0 Dehydration; R00.1 Bradycardia, unspecified; I69.320 Aphasia following cerebral infarction; I69.391 Dysphagia following cerebral infarction; N93.9 Abnormal uterine and vaginal bleeding, unspecified; E87.5 Hyperkalemia; E87.70 Fluid overload, unspecified; Y95 Nosocomial condition; T50.905A Adverse effect of unspecified drugs, medicaments and biological substances, initial encounter; Z79.899 Other long term (current) drug therapy; Z79.01 Long term (current) use of anticoagulants; Z90.710 Acquired absence of both cervix and uterus; Z87.891 Personal history of nicotine dependence
CPT/HCPCS: 36410; 36415; 36573; 36600; 71045; 76937; 80048; 80053; 81003; 82550; 82553; 82728; 82803; 82805; 83036; 83520; 83605; 83615; 83735; 84132; 84145; 85025; 85379; 85610; 85730; 86140; 87040; 87070; 87077; 87086; 87186; 87205; 87324; 87502; 87634; 87635; 93005; 94002; 94003; 94640; 94760; 95816; 96365; 99291

== ENCOUNTER 2020-03-20 10:34 | Inpatient (IN) | payer MEDICARE, OTHER ==
--- NOTE | 2020-03-20 10:51 | ED ---
General Adult HPI - General Stated complaint: SOB Time Seen by Provider: 03/20/20 10:36 - History of Present Illness Initial comments: Dictation was produced using [employer] dictation software. please excuse any grammatical, word or spelling errors. This patient was cared for during a federal and state declared state of emergency secondary to Covid 19 Chief Complaint: 79-year-old female with recently diagnosed: 19 presents with right upper extremity swelling and increased lethargy History of Present Illness: Patient is a full code 7-year-old female transferred to us from detention. Patient has multiple significant comorbidities. Furthermore, on 03/06/2020 patient was diagnosed positive for covid 19. According to EMS who received report from detention staff there was concern of patient's acute onset of right upper extremity swelling and slightly increased lethargy reported. EMS states that patient is usually able to follow commands and is at baseline a and O 2 out of 4. According to EMS there was no concern of unstable vitals or focal neurologic deficit. Simply put EMS reports that physical staff concerned about mild increased lethargy. Patient is unreliable historian at this time. According to chart review patient is on apixaban for A. fib. She has a PICC line in place in the left upper extremity Unable to obtain ROS secondary to mental status PHYSICAL EXAM: General Impression: Alert, responsive, eyes open, follows commands, does not speak HEENT: Normocephalic atraumatic, extra-ocular movements intact, pupils equal and reactive to light bilaterally, mucous membranes moist. Cardiovascular: Tachycardic Chest: Able to complete full sentences, no retractions, no tachypnea, clear to auscultation bilaterally Abdomen: abdomen soft, non-tender, non-distended, no organomegaly Musculoskeletal: Pulses present and equal in all extremities, no peripheral edema Right upper tremor: Pitting edema to the dorsum of the hand, no erythema, pulses palpable, does not elicit any pain with palpation of the entire right upper extremity Motor: no focal deficits noted Neurological: Gaze deviation to the left, able to raise left arm to command Skin: Intact with no visualized rashes ED course: 79-year-old female with multiple significant comorbidities presents from detention for right upper extremity swelling and slightly increased lethargy. It is unclear what patient's baseline is. I bedside she is responsive however minimally. She is nonverbal does not make any noise. She does not appear to be any significant distress. She is tachycardic. She has a PICC line in the left upper extremity and feeding tube in the abdomen. Patient recently diagnosed with Covid 19 Chart review was performed. Seems that in December patient was diagnosed with Crohn a virus or she was admitted and started on IV Zithromax. She has a history of CVA with right-sided paralysis. At patient's recent admission she did have hypoxic respiratory failure. EMS reports that patient is still full code. EKG shows A. fib RVR. Patient medications reviewed she is on Xarelto. Arterial blood gases were obtained. PH 7.474, pCO2 43.6 and pO2 of 75.3 on 3 L nasal cannula.Patient's heart rate still slightly elevated while at bedside. Patient given 1 dose of IV metoprolol followed by patient's usual oral dose of Lopressor. Good rate control achieved. Laboratory evaluation obtained. CBC unremarkable. No leukocytosis. Coag panel is unremarkable. Metabolic panel shows no elevated renal markers. Troponin is elevated 0.073 which is patient's baseline. Patient's C-reactive protein is only 10. Brain injury peptide 1700. Computed tomography scan of the brain shows no acute processes. Patient's chest x-ray appears stable compared to most previous x-ray from January 24. Case is discussed with Dr. Dominguez was 1 excepting patient's care. Concern patient's clinical presentation and significant comorbidities patient would benefit from observation admission for medical monitoring. Pending ultrasound of the right upper extremity. To rule out right upper extremity DVT EKG interpretation: Ventricular rate 132, A. fib with RVR, QRS 72, QTc 459. No OH prolongation, no QTC prolongation, no ST or T-wave changes noted. - Related Data Home Medications Medication Instructions Recorded Confirmed amLODIPine [Norvasc] 10 mg PEG/G-TUBE DAILY 01/24/16 12/28/19 Folic Acid 0.8 mg PEG/G-TUBE HS@199902/23/19 12/28/19 Ferrous Sulfate [Iron (65 MG 325 mg PEG/G-TUBE HS@199910/05/19 12/28/19 Elemental)] cloNIDine HCL [Catapres] 0.1 mg PEG/G-TUBE HS@199910/05/19 12/28/19 glipiZIDE [Glucotrol] 5 mg PEG/G-TUBE DAILY 10/05/19 12/28/19 Potassium Chloride Oral Liquid 10 meq PEG/G-TUBE DAILY 11/07/19 12/28/19 Cholecalciferol [Vitamin D3 (25 2,000 unit PEG/G-TUBE DAILY 12/28/19 12/28/19 Mcg = 1000 Iu)] Previous Rx's Medication Instructions Recorded Acetaminophen Tab [Tylenol] 650 mg PO Q6HR PRN tab 01/25/20 Albuterol Inhaler [Ventolin Hfa 2 puff INHALATION RT-QID puff 01/25/20 Inhaler] Chlorhexidine Gluconate [Peridex] 15 ml MUCOUS MEM BID solution 01/25/20 Enoxaparin [Lovenox] 40 mg SQ BID syringe 01/25/20 Furosemide [Lasix] 40 mg PEG/G-TUBE BID 30 Days #60 01/25/20 tablet INSULIN ASPART (NovoLOG) [NovoLOG 0 unit SQ Q4H vial 01/25/20 (formulary)] Insulin Detemir (Levemir) [Levemir] 40 unit SQ HS syr 01/25/20 Lisinopril [Zestril] 2.5 mg PEG/G-TUBE 1200 tab 01/25/20 Metoprolol Tartrate [Lopressor] 12.5 mg PO 0600,1800 tab 01/25/20 Rivaroxaban [Xarelto] 15 mg PO HS tab 01/25/20 Zinc Sulfate [Orazinc] 220 mg PO DAILY cap 01/25/20 cefTRIAXone [Rocephin] 2 gm IVPB Q24HR vial 01/25/20 Allergies Allergy/AdvReac Type Severity Reaction Status Date / Time No Known Allergies Allergy Verified 12/28/19 17:40 Review of Systems ROS Statement: Those systems with pertinent positive or pertinent negative responses have been documented in the HPI. ROS Other: All systems not noted in ROS Statement are negative. 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 History of Any Multi-Drug Resistant Organisms: None Reported Past Surgical History: Hysterectomy Additional Past Surgical History / Comment(s): not known at ECF,peg insertion Past Anesthesia/Blood Transfusion Reactions: No Reported Reaction, Unable to Obtain Additional Past Anesthesia/Blood Transfusion Reaction / Comment(s): spouse thinks no problems that he knows of(poor historian), no info at ECF Past Psychological History: No Psychological Hx Reported Smoking Status: Former smoker Past Alcohol Use History: None Reported Additional Past Alcohol Use History / Comment(s): STARTED SMOKING AT AGE 17,SMOKED LESS THAN 1 PPD, QUIT 2001. Past Drug Use History: None Reported - Past Family History Mother Family Medical History: Unable to Obtain Additional Family Medical History / Comment(s): no info at ECF Father History Unknown: Yes Course Vital Signs 03/20/20 03/20/20 10:58 11:38 Temperature 98.4 F Pulse Rate 117 H Respiratory 36 H 12 Rate Blood Pressure 137/109 O2 Sat by Pulse 99 Oximetry Medical Decision Making - Lab Data Result diagrams: 03/20/20 11:03 03/20/20 11:03 Lab Results 03/20/20 03/20/20 03/20/20 Range/Units 11:03 11:03 11:03 WBC 7.0 (3.8-10.6) k/uL RBC 4.60 (3.80-5.40) m/uL Hgb 14.8 (11.4-16.0) gm/dL Hct 46.0 (34.0-46.0) % MCV 100.1 H (80.0-100.0) fL MCH 32.1 (25.0-35.0) pg MCHC 32.1 (31.0-37.0) g/dL RDW 15.2 (11.5-15.5) % Plt Count 191 (150-450) k/uL Neutrophils % 58 % Lymphocytes % 29 % Monocytes % 7 % Eosinophils % 5 % Basophils % 1 % Neutrophils # 4.0 (1.3-7.7) k/uL Lymphocytes # 2.0 (1.0-4.8) k/uL Monocytes # 0.5 (0-1.0) k/uL Eosinophils # 0.3 (0-0.7) k/uL Basophils # 0.1 (0-0.2) k/uL Hypochromasia Slight Macrocytosis Slight PT 10.1 (9.0-12.0) sec INR 1.0 (<1.2) APTT 20.4 L (22.0-30.0) sec Sample Site ABG pH (7.35-7.45) ABG pCO2 (35-45) mmHg ABG pO2 (83-108) mmHg ABG HCO3 (21-25) mmol/L ABG Total CO2 (19-24) mmol/L ABG O2 Saturation (94-97) % ABG Base Excess mmol/L Osei Test VBG pH (7.31-7.41) VBG pCO2 (37-51) mmHg VBG HCO3 (24-28) mmol/L FiO2 % Sodium 138 (137-145) mmol/L Potassium 4.3 (3.5-5.1) mmol/L Chloride 103 (98-107) mmol/L Carbon Dioxide 29 (22-30) mmol/L Anion Gap 6 mmol/L BUN 18 H (7-17) mg/dL Creatinine 0.36 L (0.52-1.04) mg/dL Est GFR (CKD-EPI)AfAm >90 (>60 ml/min/1.73 sqM) Est GFR (CKD-EPI)NonAf >90 (>60 ml/min/1.73 sqM) Glucose 130 H (74-99) mg/dL Plasma Lactic Acid Bora (0.7-2.0) mmol/L Calcium 10.0 (8.4-10.2) mg/dL Magnesium 2.1 (1.6-2.3) mg/dL Total Bilirubin 0.6 (0.2-1.3) mg/dL AST 37 H (14-36) U/L ALT 34 (4-34) U/L Alkaline Phosphatase 82 (38-126) U/L Ammonia (<30) umol/L Troponin I (0.000-0.034) ng/mL C-Reactive Protein 10.0 H (<10.0) mg/L NT-Pro-B Natriuret Pep pg/mL Total Protein 6.0 L (6.3-8.2) g/dL Albumin 3.0 L (3.5-5.0) g/dL Lipase 79 (23-300) U/L TSH 2.350 (0.465-4.680) mIU/L 03/20/20 03/20/20 03/20/20 Range/Units 11:03 11:03 11:15 WBC (3.8-10.6) k/uL RBC (3.80-5.40) m/uL Hgb (11.4-16.0) gm/dL Hct (34.0-46.0) % MCV (80.0-100.0) fL MCH (25.0-35.0) pg MCHC (31.0-37.0) g/dL RDW (11.5-15.5) % Plt Count (150-450) k/uL Neutrophils % % Lymphocytes % % Monocytes % % Eosinophils % % Basophils % % Neutrophils # (1.3-7.7) k/uL Lymphocytes # (1.0-4.8) k/uL Monocytes # (0-1.0) k/uL Eosinophils # (0-0.7) k/uL Basophils # (0-0.2) k/uL Hypochromasia Macrocytosis PT (9.0-12.0) sec INR (<1.2) APTT (22.0-30.0) sec Sample Site ABG pH (7.35-7.45) ABG pCO2 (35-45) mmHg ABG pO2 (83-108) mmHg ABG HCO3 (21-25) mmol/L ABG Total CO2 (19-24) mmol/L ABG O2 Saturation (94-97) % ABG Base Excess mmol/L Osei Test VBG pH (7.31-7.41) VBG pCO2 (37-51) mmHg VBG HCO3 (24-28) mmol/L FiO2 % Sodium (137-145) mmol/L Potassium (3.5-5.1) mmol/L Chloride (98-107) mmol/L Carbon Dioxide (22-30) mmol/L Anion Gap mmol/L BUN (7-17) mg/dL Creatinine (0.52-1.04) mg/dL Est GFR (CKD-EPI)AfAm (>60 ml/min/1.73 sqM) Est GFR (CKD-EPI)NonAf (>60 ml/min/1.73 sqM) Glucose (74-99) mg/dL Plasma Lactic Acid Bora 1.1 (0.7-2.0) mmol/L Calcium (8.4-10.2) mg/dL Magnesium (1.6-2.3) mg/dL Total Bilirubin (0.2-1.3) mg/dL AST (14-36) U/L ALT (4-34) U/L Alkaline Phosphatase (38-126) U/L Ammonia <9 (<30) umol/L Troponin I 0.073 H* (0.000-0.034) ng/mL C-Reactive Protein (<10.0) mg/L NT-Pro-B Natriuret Pep 1770 pg/mL Total Protein (6.3-8.2) g/dL Albumin (3.5-5.0) g/dL Lipase (23-300) U/L TSH (0.465-4.680) mIU/L 03/20/20 03/20/20 Range/Units 11:15 11:18 WBC (3.8-10.6) k/uL RBC (3.80-5.40) m/uL Hgb (11.4-16.0) gm/dL Hct (34.0-46.0) % MCV (80.0-100.0) fL MCH (25.0-35.0) pg MCHC (31.0-37.0) g/dL RDW (11.5-15.5) % Plt Count (150-450) k/uL Neutrophils % % Lymphocytes % % Monocytes % % Eosinophils % % Basophils % % Neutrophils # (1.3-7.7) k/uL Lymphocytes # (1.0-4.8) k/uL Monocytes # (0-1.0) k/uL Eosinophils # (0-0.7) k/uL Basophils # (0-0.2) k/uL Hypochromasia Macrocytosis PT (9.0-12.0) sec INR (<1.2) APTT (22.0-30.0) sec Sample Site rrad ABG pH 7.47 H (7.35-7.45) ABG pCO2 44 (35-45) mmHg ABG pO2 75 L (83-108) mmHg ABG HCO3 32 H (21-25) mmol/L ABG Total CO2 33 H (19-24) mmol/L ABG O2 Saturation 95.3 (94-97) % ABG Base Excess 8.4 mmol/L Osei Test Yes VBG pH 7.46 H (7.31-7.41) VBG pCO2 44 (37-51) mmHg VBG HCO3 31 H (24-28) mmol/L FiO2 32 % Sodium (137-145) mmol/L Potassium (3.5-5.1) mmol/L Chloride (98-107) mmol/L Carbon Dioxide (22-30) mmol/L Anion Gap mmol/L BUN (7-17) mg/dL Creatinine (0.52-1.04) mg/dL Est GFR (CKD-EPI)AfAm (>60 ml/min/1.73 sqM) Est GFR (CKD-EPI)NonAf (>60 ml/min/1.73 sqM) Glucose (74-99) mg/dL Plasma Lactic Acid Bora (0.7-2.0) mmol/L Calcium (8.4-10.2) mg/dL Magnesium (1.6-2.3) mg/dL Total Bilirubin (0.2-1.3) mg/dL AST (14-36) U/L ALT (4-34) U/L Alkaline Phosphatase (38-126) U/L Ammonia (<30) umol/L Troponin I (0.000-0.034) ng/mL C-Reactive Protein (<10.0) mg/L NT-Pro-B Natriuret Pep pg/mL Total Protein (6.3-8.2) g/dL Albumin (3.5-5.0) g/dL Lipase (23-300) U/L TSH (0.465-4.680) mIU/L Disposition Clinical Impression: Atrial fibrillation with RVR Disposition: ADMITTED IP TO THIS HOSP Condition: Fair Referrals: Yvonne Dominguez MD [Primary Care Provider] - 1-2 days Decision Time: 12:26
[2020-03-20 11:29] LABS: ABG Base Excess 8.4 mmol/L; ABG HCO3 32 mmol/L (21-25); ABG Oxygen Saturation 95.3 % (94-97); ABG PCO2 44 mmHg (35-45); ABG PH 7.47 (7.35-7.45); ABG PO2 75 mmHg (83-108); ABG TCO2 33 mmol/L (19-24); Allen Test Performed? Yes
[2020-03-20 11:30] LABS: Basophils # (A) 0.1 k/uL (0-0.2); Basophils % (A) 1 %; Eosinophils # (A) 0.3 k/uL (0-0.7); Eosinophils % (A) 5 %; HGB 14.8 gm/dL (11.4-16.0); Hypochromasia Slight; Lymphocytes % (A) 29 %; MCH 32.1 pg (25.0-35.0); MCHC 32.1 g/dL (31.0-37.0); MCV 100.1 fL (80.0-100.0); Macrocytosis Slight; Mean Platelet Volume 10.1; Monocytes # (A) 0.5 k/uL (0-1.0); Monocytes % (A) 7 %; Neutrophils % (A) 58 %; Platelet Count 191 k/uL (150-450); RDW 15.2 % (11.5-15.5)
[2020-03-20 11:35] LABS: VBG PH 7.46 (7.31-7.41)
[2020-03-20 11:37] LABS: ALT 34 U/L (4-34); AST 37 U/L (14-36); African American GFR (CKD) >90 (>60 ml/min/1.73 sqM); Alkaline Phosphatase 82 U/L (38-126); Anion Gap 6 mmol/L; Blood Urea Nitrogen 18 mg/dL (7-17); Carbon Dioxide 29 mmol/L (22-30); Chloride 103 mmol/L (98-107); Glucose 130 mg/dL (74-99); Magnesium 2.1 mg/dL (1.6-2.3); Non-African American GFR(CKD) >90 (>60 ml/min/1.73 sqM); Sodium 138 mmol/L (137-145); Total Bilirubin 0.6 mg/dL (0.2-1.3)
[2020-03-20 11:42] LABS: Potassium 4.3 mmol/L (3.5-5.1)
[2020-03-20 11:43] LABS: Lactic Acid, Venous 1.1 mmol/L (0.7-2.0)
--- NOTE | 2020-03-20 11:54 | CT ---
EXAMINATION TYPE: CT brain wo con DATE OF EXAM: 03/20/2020 COMPARISON: 07/22/2017 HISTORY: Lethargy CT DLP: 1090.[address] of the brain was performed. The ventricles, basal cisterns and sulci overlying the cerebral convexities demonstrate moderate enla rgement. There is no evidence for intracranial hemorrhage or sulcal effacement. There is decreased attenuation about the periventricular white matter and deep white matter of both c erebral hemispheres, compatible with chronic small vessel ischemia. Differential diagnosis does inclu de demyelination. No mass effects are seen.No midline shift. Osseous calvarium is intact. If symptoms persist consider MRI. IMPRESSION: 1. Age related atrophic and chronic small vessel ischemic change without acute intracranial process s een at this time.
[2020-03-20 12:04] LABS: Prothrombin Time 10.1 sec (9.0-12.0)
[2020-03-20 12:08] LABS: Partial Thromboplastin Time 20.4 sec (22.0-30.0)
[2020-03-20] MEDS ORDERED: METOPROLOL TARTRATE 5 MG/5 ML VIAL IVP STA (12:19)
[2020-03-20] MEDS ORDERED: METOPROLOL TARTRATE 12.5 MG TAB PO STA (12:20)
--- NOTE | 2020-03-20 12:25 | XR ---
EXAMINATION TYPE: XR chest 1V portable DATE OF EXAM: 03/20/2020 Comparison: 01/25/2020 Clinical History: 79-year-old female lethargy right arm swelling Findings: Heart mildly enlarged. Leftward patient rotation altered normal cardiac and mediastinal contours. Pos sible underlying effusions. {Underpenetrated and not well assessed. Impression: Limited, rotated exam. Left base underpenetrated and not well assessed. Possible underlying effusions and bibasilar atelectasis and/or consolidation. Allowing for patient positioning, appearance is rela tively similar to 01/25/2020.
[2020-03-20] MEDS ORDERED: NALOXONE 0.4 MG/ML 1 ML VIAL IV PRN (12:27)
[2020-03-20 12:58] LABS: Appearance,Urine Cloudy (Clear); Bacteria,Urine Many /hpf; Bilirubin,Urine Negative (Negative); Blood,Urine Negative (Negative); Budding Yeast,Urine Few /hpf; Color,Urine Yellow; Glucose,Urine (UA) Negative (Negative); Ketones,Urine Negative (Negative); Leukocyte Esterase,Urine Moderate (Negative); Mucus,Urine Few /hpf; Nitrite,Urine Negative (Negative); PH, Urine 5.5 (5.0-8.0); Protein,Urine Trace (Negative); RBC,Urine 1 /hpf (0-5); WBC,Urine 8 /hpf (0-5)
[2020-03-20] MEDS: SODIUM CHLORIDE 0.9% 1,000 ML IV SCH (13:47)
--- NOTE | 2020-03-20 15:26 | US ---
EXAMINATION TYPE: US venous doppler duplex UE RT DATE OF EXAM: 03/20/2020 COMPARISON: NONE CLINICAL HISTORY: RUE swelling. right arm swelling SIDE PERFORMED: Right Right Arm: Appears negative for DVT IMPRESSION: No evidence for DVT.
[2020-03-20] MEDS ORDERED: METOPROLOL TARTRATE 12.5 MG TAB PO SCH (18:00)
[2020-03-20] MEDS ORDERED: ACETAMINOPHEN TAB 325 MG TAB PEG/G-TUBE PRN (18:23)
[2020-03-20] MEDS ORDERED: polyethylene glycoL 3350 17 GM POWD.PACK PEG/G-TUBE PRN (18:23)
--- NOTE | 2020-03-20 19:20 | P.HPIM ---
History of Present Illness H&P Date: 03/20/20 Soledad guaman, is an 79-year-old female well known to my practice who presented to [facility] emergency room with worsening condition with mental status changes and shortness of breath, she was evaluated in emergency room and had evidence of atrial fibrillation with rapid ventricular response, decision was made to proceed with admitting patient to telemetry floor, pulmonary consultation and cardiology consultation were requested. Patient had a prolonged recent admission, she had positive Covid 19 testing, she developed pneumonia and acute respiratory failure and needed prolonged ICU stay with prolonged mechanical ventilation, prior to that patient has a known history of stroke. Patient was seen and examined in the emergency room, she is alert nonverbal in no apparent distress, she is afebrile, heart rate is 117, respiration rate 36 blood pressure 137/109, pulse ox is 99% on 3 L nasal cannula, her white blood count is 7.0 hemoglobin 14.8 and platelet count 191, kidney function and liver function and electrolytes are within normal limits, troponin is slightly elevat ed at 0.073, lactic acid normal at 1.1, TSH is normal. 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 History of Any Multi-Drug Resistant Organisms: None Reported Past Surgical History: Hysterectomy Additional Past Surgical History / Comment(s): not known at ECF,peg insertion Past Anesthesia/Blood Transfusion Reactions: No Reported Reaction, Unable to Obtain Additional Past Anesthesia/Blood Transfusion Reaction / Comment(s): spouse thinks no problems that he knows of(poor historian), no info at ECF Past Psychological History: No Psychological Hx Reported Smoking Status: Former smoker Past Alcohol Use History: None Reported Additional Past Alcohol Use History / Comment(s): STARTED SMOKING AT AGE 17,SMOKED LESS THAN 1 PPD, QUIT 2001. Past Drug Use History: None Reported - Past Family History Mother Family Medical History: Unable to Obtain Additional Family Medical History / Comment(s): no info at [facility] Father History Unknown: Yes Medications and Allergies Home Medications Medication Instructions Recorded Confirmed Type Cholecalciferol [Vitamin D3 (25 2,000 unit PEG/G-TUBE DAILY 12/28/19 03/20/20 History Mcg = 1000 Iu)] Acetaminophen Tab [Tylenol] 650 mg PEG/G-TUBE Q8H PRN 03/20/20 03/20/20 History Apixaban [Eliquis] 2.5 mg PO BID@0800,199903/20/20 03/20/20 History Docusate Oral Soln [Colace Oral 100 mg PEG/G-TUBE DAILY@0800 03/20/20 03/20/20 History Soln] Ferrous Sulfate Oral Elixir 300 mg PEG/G-TUBE DAILY 03/20/20 03/20/20 History [Feosol Liquid] Folic Acid 1 mg PEG/G-TUBE HS 03/20/20 03/20/20 History Glucerna Shake 1 can PEG/G-TUBE TID 03/20/20 03/20/20 History Glycopyrrolate 1 mg PO BID@0800,199903/20/20 03/20/20 History Insulin Glargine,Hum.rec.anlog 15 unit SQ DAILY@79903/20/20 03/20/20 History [Lantus Solostar] Insulin Glargine,Hum.rec.anlog 30 unit SQ HS@199903/20/20 03/20/20 History [Lantus Solostar] Insulin Lispro [Admelog Solostar] See Protocol SQ Q6H 03/20/20 03/20/20 History Lisinopril [Zestril] 5 mg PEG/G-TUBE DAILY@0803/20/20 03/20/20 History Metoprolol Tartrate [Lopressor] 50 mg PEG/G-TUBE BID@0800,1600 03/20/20 03/20/20 History Polyethylene Glycol 3350 [Miralax] 17 gm PEG/G-TUBE DAILY PRN 03/20/20 03/20/20 History Pravastatin Sodium [Pravachol] 10 mg PEG/G-TUBE HS 03/20/20 03/20/20 History predniSONE 10 mg PEG/G-TUBE DAILY@0803/20/20 03/20/20 History Allergies Allergy/AdvReac Type Severity Reaction Status Date / Time No Known Allergies Allergy Verified 03/20/20 13:16 Physical Exam Vitals: Vital Signs Temp Pulse Resp BP Pulse Ox 03/20/20 18:00 108 H 16 99/75 98 03/20/20 17:00 103 H 104/79 03/20/20 15:00 101 H 110/68 03/20/20 14:04 103/79 03/20/20 13:43 101 H 96/62 03/20/20 11:38 12 03/20/20 10:58 98.4 F 117 H 36 H 137/109 99 Intake and Output 03/20/20 03/20/20 03/20/20 06:59 14:59 22:59 Other: Weight 100.698 kg Patient is alert nonverbal in no apparent distress HEENT head normocephalic and atraumatic Neck is supple no JVD no goiter no lymphadenopathy Chest exam reveals a few scattered crackles in both lung ivy no wheezing Cardiac exam reveals regular heart sounds no gallops no murmurs Abdomen is soft nontender no organomegaly with normal bowel sounds, PEG tube site is clear Extremity exam reveals no edema no cyanosis or clubbing Results CBC & Chem 7: 03/20/20 11:03 03/20/20 11:03 Labs: Abnormal Lab Results - Last 24 Hours (Table) 03/20/20 03/20/20 03/20/20 Range/Units 11:03 11:03 11:03 MCV 100.1 H (80.0-100.0) fL APTT 20.4 L (22.0-30.0) sec ABG pH (7.35-7.45) ABG pO2 (83-108) mmHg ABG HCO3 (21-25) mmol/L ABG Total CO2 (19-24) mmol/L VBG pH (7.31-7.41) VBG HCO3 (24-28) mmol/L BUN 18 H (7-17) mg/dL Creatinine 0.36 L (0.52-1.04) mg/dL Glucose 130 H (74-99) mg/dL AST 37 H (14-36) U/L Troponin I (0.000-0.034) ng/mL C-Reactive Protein 10.0 H (<10.0) mg/L Total Protein 6.0 L (6.3-8.2) g/dL Albumin 3.0 L (3.5-5.0) g/dL Urine Appearance (Clear) Urine Protein (Negative) Ur Leukocyte Esterase (Negative) Urine WBC (0-5) /hpf Urine Bacteria (None) /hpf Urine Mucus (None) /hpf Urine Yeast (Budding) (None) /hpf 03/20/20 03/20/20 03/20/20 Range/Units 11:03 11:15 11:18 MCV (80.0-100.0) fL APTT (22.0-30.0) sec ABG pH 7.47 H (7.35-7.45) ABG pO2 75 L (83-108) mmHg ABG HCO3 32 H (21-25) mmol/L ABG Total CO2 33 H (19-24) mmol/L VBG pH 7.46 H (7.31-7.41) VBG HCO3 31 H (24-28) mmol/L BUN (7-17) mg/dL Creatinine (0.52-1.04) mg/dL Glucose (74-99) mg/dL AST (14-36) U/L Troponin I 0.073 H* (0.000-0.034) ng/mL C-Reactive Protein (<10.0) mg/L Total Protein (6.3-8.2) g/dL Albumin (3.5-5.0) g/dL Urine Appearance (Clear) Urine Protein (Negative) Ur Leukocyte Esterase (Negative) Urine WBC (0-5) /hpf Urine Bacteria (None) /hpf Urine Mucus (None) /hpf Urine Yeast (Budding) (None) /hpf 03/20/20 Range/Units 12:20 MCV (80.0-100.0) fL APTT (22.0-30.0) sec ABG pH (7.35-7.45) ABG pO2 (83-108) mmHg ABG HCO3 (21-25) mmol/L ABG Total CO2 (19-24) mmol/L VBG pH (7.31-7.41) VBG HCO3 (24-28) mmol/L BUN (7-17) mg/dL Creatinine (0.52-1.04) mg/dL Glucose (74-99) mg/dL AST (14-36) U/L Troponin I (0.000-0.034) ng/mL C-Reactive Protein (<10.0) mg/L Total Protein (6.3-8.2) g/dL Albumin (3.5-5.0) g/dL Urine Appearance Cloudy H (Clear) Urine Protein Trace H (Negative) Ur Leukocyte Esterase Moderate H (Negative) Urine WBC 8 H (0-5) /hpf Urine Bacteria Many H (None) /hpf Urine Mucus Few H (None) /hpf Urine Yeast (Budding) Few H (None) /hpf Assessment and Plan Plan: 1. Atrial fibrillation with rapid ventricular response, patient received metoprolol, and her heart rate improved, cardiology consult was requested 2. Slight elevation in troponin level, cardiology consult requested 3. Bibasilar consolidation likely atelectasis, patient is well known to Dr. Kamara pulmonary consultation requested 4. Recent history of prolonged admission for Covid 19 pneumonia with acute respiratory failure requiring prolonged mechanical ventilation 5. Previous history of stroke patient has PEG tube for feeding, site inspected and is clear Will check urine analysis, obtain a blood culture Home medications reviewed and reordered Patient is maintained on Eliquis for stroke prevention Will monitor closely prognosis is guarded due to age and multiple underlying conditions
--- NOTE | 2020-03-20 19:22 | P.HPADDEND ---
H&P Addendum H&P Addendum Date: 03/20/20 Right arm was swollen, Doppler was done and was negative for DVT
[2020-03-20 19:40] LABS: Glucose,Whole Blood 119 mg/dL (75-99)
[2020-03-20] MEDS ORDERED: RIVAROXABAN 15 MG TAB PO SCH (21:00)
[2020-03-20] MEDS ORDERED: NON FORMULARY DRUG (Glucerna Shake 1 CAN) PEG/G-TUBE SCH (22:00)
[2020-03-20 22:59] LABS: Amorphous Sediment,Urine Many /hpf; Appearance,Urine Cloudy (Clear); Bacteria,Urine Many /hpf; Bilirubin,Urine Negative (Negative); Blood,Urine Negative (Negative); Color,Urine Yellow; Glucose,Urine (UA) Negative (Negative); Ketones,Urine Negative (Negative); Leukocyte Esterase,Urine Moderate (Negative); Mucus,Urine Rare /hpf; Nitrite,Urine Positive (Negative); PH, Urine 6.5 (5.0-8.0); Protein,Urine Negative (Negative); RBC,Urine <1 /hpf (0-5); Specific Gravity,Urine 1.012 (1.001-1.035); Squamous Epithelial Cell,Urine <1 /hpf (0-4); Urobilinogen,Urine <2.0 mg/dL (<2.0); WBC,Urine 4 /hpf (0-5)
[2020-03-20] MEDS: INSULIN DETEMIR (LEVEMIR) 100 UNIT/ML SYR SQ SCH (23:18)
[2020-03-20] MEDS: GLYCOPYRROLATE 1 MG TAB PO SCH (23:43)
[2020-03-20] MEDS: FOLIC ACID 1 MG TAB PEG/G-TUBE SCH (23:43)
[2020-03-20] MEDS: PRAVASTATIN SODIUM 20 MG TAB PO SCH (23:43)
[2020-03-20] MEDS: INSULIN ASPART (NovoLOG) 100 UNIT/ML VIAL SQ SCH (23:44)
[2020-03-21 00:37] LABS: Glucose,Whole Blood 113 mg/dL (75-99)
[2020-03-21] MEDS ORDERED: VANCOMYCIN IV PER PHARMACY 1 EACH MISC MISCELLANE PRN (03:09)
[2020-03-21] MEDS ORDERED: VANCOMYCIN 1,500 MG in SODIUM CHLORIDE 0.9% 250 ML IVPB SCH (03:15)
[2020-03-21] MEDS ORDERED: VANCOMYCIN 1,750 MG in SODIUM CHLORIDE 0.9% 500 ML 500 ML IVPB ONE (03:30)
[2020-03-21] MEDS: APIXABAN 2.5 MG TABLET PO SCH ×3 (03:52→20:05)
[2020-03-21 05:48] LABS: Glucose,Whole Blood 79 mg/dL (75-99)
[2020-03-21] MEDS: INSULIN ASPART (NovoLOG) 100 UNIT/ML VIAL SQ SCH ×3 (05:52→17:53)
[2020-03-21 06:39] LABS: Basophils % (A) 1 %; Eosinophils # (A) 0.3 k/uL (0-0.7); Eosinophils % (A) 5 %; HCT 45.5 % (34.0-46.0); HGB 14.7 gm/dL (11.4-16.0); Hypochromasia Slight; Lymphocytes # (A) 1.6 k/uL (1.0-4.8); Lymphocytes % (A) 30 %; MCH 32.5 pg (25.0-35.0); MCHC 32.3 g/dL (31.0-37.0); MCV 100.7 fL (80.0-100.0); Macrocytosis Slight; Mean Platelet Volume 9.3; Monocytes # (A) 0.4 k/uL (0-1.0); Monocytes % (A) 7 %; Neutrophils % (A) 55 %; Platelet Count 184 k/uL (150-450); RBC 4.52 m/uL (3.80-5.40); RDW 14.9 % (11.5-15.5); WBC 5.4 k/uL (3.8-10.6)
[2020-03-21 06:52] LABS: ALT 33 U/L (4-34); AST 24 U/L (14-36); African American GFR (CKD) >90 (>60 ml/min/1.73 sqM); Albumin 2.6 g/dL (3.5-5.0); Alkaline Phosphatase 91 U/L (38-126); Anion Gap 4 mmol/L; Blood Urea Nitrogen 13 mg/dL (7-17); Calcium 9.8 mg/dL (8.4-10.2); Carbon Dioxide 30 mmol/L (22-30); Chloride 106 mmol/L (98-107); Glucose 83 mg/dL (74-99); Non-African American GFR(CKD) >90 (>60 ml/min/1.73 sqM); Potassium 3.6 mmol/L (3.5-5.1); Sodium 140 mmol/L (137-145); Total Bilirubin 0.8 mg/dL (0.2-1.3); Total Protein 5.3 g/dL (6.3-8.2)
[2020-03-21] MEDS ORDERED: METOPROLOL TARTRATE 50 MG TAB PEG/G-TUBE SCH (08:00)
--- NOTE | 2020-03-21 08:50 | P.CRDCN ---
History of Present Illness Consult date: 03/21/20 Requesting physician: Yvonne Dominguez Consult reason: atrial fibrillation Chief complaint: Right arm swelling, atrial fibrillation History of present illness: This is a pleasant 79-year-old -Stateless female who [facility], she has a known history of prior CVA, diabetes, hyperlipidemia, hypertension, dementia, patient was also admitted to the hospital in December positive for COVID. Most of her history and information was obtained from recent and prior medical records, as she is unable to provide any history. There is documentation that the patient also has history of atrial fibrillation, she's on Eliquis at home. She has a chronic Sands catheter in place and a PEG tube. Cardiology consultation was requested for atrial fibrillation with a rapid ventricular response. Right arm ultrasound was performed to rule out DVT, came back negative. He was ordered because of sick significant swelling in the right upper extremity. EKG showed atrial fibrillation with a rapid ventricular response. Chest x-ray was a limited study, possible underlying effusions and bi-basilar atelectasis and/or consolidation. CAT scan of the brain did not reveal any acute changes. Blood pressure 120/80 with a heart rate in the 90s this morning, 99% on 2 L of oxygen. White blood cell count 5.4, hemoglobin 14.7, platelet count 184. Sodium 138, potassium 4.3, BUN 18, creatinine 0.3. Magnesium 2.1, troponin 0.073. C-reactive protein 10.0. BNP 1770. Positive UTI. Coronavirus not detected. 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 History of Any Multi-Drug Resistant Organisms: None Reported Past Surgical History: Hysterectomy Additional Past Surgical History / Comment(s): not known at ECF,peg insertion Past Anesthesia/Blood Transfusion Reactions: No Reported Reaction, Unable to Obtain Additional Past Anesthesia/Blood Transfusion Reaction / Comment(s): spouse thinks no problems that he knows of(poor historian), no info at ECF Past Psychological History: No Psychological Hx Reported Smoking Status: Former smoker Past Alcohol Use History: None Reported Additional Past Alcohol Use History / Comment(s): STARTED SMOKING AT AGE 17 ,SMOKED LESS THAN 1 PPD, QUIT 2001. Past Drug Use History: None Reported - Past Family History Mother Family Medical History: Unable to Obtain Additional Family Medical History / Comment(s): no info at ECF Father History Unknown: Yes Medications and Allergies Home Medications Medication Instructions Recorded Confirmed Type Cholecalciferol [Vitamin D3 (25 2,000 unit PEG/G-TUBE DAILY 12/28/19 03/20/20 History Mcg = 1000 Iu)] Acetaminophen Tab [Tylenol] 650 mg PEG/G-TUBE Q8H PRN 03/20/20 03/20/20 History Apixaban [Eliquis] 2.5 mg PO BID@0800,199903/20/20 03/20/20 History Docusate Oral Soln [Colace Oral 100 mg PEG/G-TUBE DAILY@0800 03/20/20 03/20/20 History Soln] Ferrous Sulfate Oral Elixir 300 mg PEG/G-TUBE DAILY 03/20/20 03/20/20 History [Feosol Liquid] Folic Acid 1 mg PEG/G-TUBE HS 03/20/20 03/20/20 History Glucerna Shake 1 can PEG/G-TUBE TID 03/20/20 03/20/20 History Glycopyrrolate 1 mg PO BID@0800,199903/20/20 03/20/20 History Insulin Glargine,Hum.rec.anlog 15 unit SQ DAILY@79903/20/20 03/20/20 History [Lantus Solostar] Insulin Glargine,Hum.rec.anlog 30 unit SQ HS@199903/20/20 03/20/20 History [Lantus Solostar] Insulin Lispro [Admelog Solostar] See Protocol SQ Q6H 03/20/20 03/20/20 History Lisinopril [Zestril] 5 mg PEG/G-TUBE DAILY@0800 03/20/20 03/20/20 History Metoprolol Tartrate [Lopressor] 50 mg PEG/G-TUBE BID@0800,1600 03/20/20 03/20/20 History Polyethylene Glycol 3350 [Miralax] 17 gm PEG/G-TUBE DAILY PRN 03/20/20 03/20/20 History Pravastatin Sodium [Pravachol] 10 mg PEG/G-TUBE HS 03/20/20 03/20/20 History predniSONE 10 mg PEG/G-TUBE DAILY@0800 03/20/20 03/20/20 History Allergies Allergy/AdvReac Type Severity Reaction Status Date / Time No Known Allergies Allergy Verified 03/20/20 13:16 Physical Exam Vitals: Vital Signs Temp Pulse Pulse Resp BP BP Pulse Ox 03/21/20 04:00 98.9 F 91 18 119/83 99 03/21/20 01:13 97.7 F 103 H 18 124/89 98 03/21/20 00:00 107 H 19 121/82 93 L 03/20/20 20:00 98.2 F 107 H 17 109/79 95 03/20/20 18:00 108 H 16 99/75 98 03/20/20 17:00 103 H 104/79 03/20/20 15:00 101 H 110/68 03/20/20 14:04 103/79 03/20/20 13:43 101 H 96/62 03/20/20 11:38 12 03/20/20 10:58 98.4 F 117 H 36 H 137/109 99 Intake and Output 03/20/20 03/21/20 03/21/20 22:59 06:59 14:59 Output Total 1000 Balance -1000 Output: Urine 1000 Other: Voiding Method Indwelling Catheter Indwelling Catheter # Bowel Movements 1 Weight 79.5 kg PHYSICAL EXAMINATION: GENERAL: 79-year-old -Stateless female in no acute distress at the time of my examination HEENT: Head is atraumatic, normocephalic. Pupils equal, round. Sclera anicteric. Conjunctiva are clear. Mucous membranes of the mouth are moist. Neck is supple. There is no elevated jugular venous pressure. No carotid bruit is heard. HEART EXAMINATION: Heart S1 and S2 irregularly irregular a systolic murmur is heard CHEST EXAMINATION: And reveal fine crackles to the bases ABDOMEN: Soft, nontender. Bowel sounds are heard. No organomegaly noted. PEG tube in place, site reddened EXTREMITIES: 2+ peripheral pulses with no evidence of peripheral edema and no calf tenderness noted. NEUROLOGIC patient is awake, alert, confused. . Results 03/21/20 05:51 03/21/20 05:51 Cardiac Enzymes 03/20/20 03/20/20 03/21/20 Range/Units 11:03 11:03 05:51 AST 37 H 24 (14-36) U/L Troponin I 0.073 H* (0.000-0.034) ng/mL Coagulation 03/20/20 Range/Units 11:03 PT 10.1 (9.0-12.0) sec APTT 20.4 L (22.0-30.0) sec CBC 03/20/20 03/21/20 Range/Units 11:03 05:51 WBC 7.0 5.4 (3.8-10.6) k/uL RBC 4.60 4.52 (3.80-5.40) m/uL Hgb 14.8 14.7 (11.4-16.0) gm/dL Hct 46.0 45.5 (34.0-46.0) % Plt Count 191 184 (150-450) k/uL Comprehensive Metabolic Panel 03/20/20 03/21/20 Range/Units 11:03 05:51 Sodium 138 140 (137-145) mmol/L Potassium 4.3 3.6 (3.5-5.1) mmol/L Chloride 103 106 (98-107) mmol/L Carbon Dioxide 29 30 (22-30) mmol/L BUN 18 H 13 (7-17) mg/dL Creatinine 0.36 L 0.34 L (0.52-1.04) mg/dL Glucose 130 H 83 (74-99) mg/dL Calcium 10.0 9.8 (8.4-10.2) mg/dL AST 37 H 24 (14-36) U/L ALT 34 33 (4-34) U/L Alkaline Phosphatase 82 91 (38-126) U/L Total Protein 6.0 L 5.3 L (6.3-8.2) g/dL Albumin 3.0 L 2.6 L (3.5-5.0) g/dL Current Medications Generic Name Dose Route Start Last Admin Trade Name Freq PRN Reason Stop Dose Admin Acetaminophen 650 mg 03/20/20 18:23 Tylenol Tab PEG/G-TUBE Q8H PRN Mild Pain or Fever > 100.5 Apixaban 2.5 mg 03/20/20 20:00 03/21/20 03:52 Eliquis PO Not Given BID@0800,1999 [facility] Cholecalciferol 2,000 unit 03/21/20 09:00 Vitamin D3 (25 Mcg = 1000 Iu) PEG/G-TUBE DAILY [facility] Docusate Sodium 100 mg 03/21/20 08:00 Colace Oral Soln PEG/G-TUBE DAILY@0800 [facility] Ferrous Sulfate 300 mg 03/21/20 09:00 Feosol PEG/G-TUBE DAILY [facility] Folic Acid 1 mg 03/20/20 21:00 03/20/20 23:43 Folic Acid PEG/G-TUBE 1 mg HS [facility] Administration Glycopyrrolate 1 mg 03/20/20 20:00 03/20/20 23:43 Robinul PO 1 mg BID@0800,1999 [facility] Administration Sodium Chloride 1,000 mls @ 20 mls/hr 03/20/20 12:30 03/20/20 13:47 Saline 0.9% IV Not Given .Q24H [facility] Vancomycin HCl 1,500 mg/ 250 mls @ 125 mls/hr 03/21/20 16:00 Sodium Chloride IVPB Q12H [facility] Insulin Aspart 6 unit 03/21/20 00:00 03/21/20 05:52 Novolog SQ Not Given Q6HR [facility] Insulin Detemir 15 unit 03/21/20 08:00 Levemir SQ DAILY@0800 [facility] Insulin Detemir 30 unit 03/20/20 20:00 03/20/20 23:18 Levemir SQ Not Given HS@2000 [facility] Lisinopril 5 mg 03/21/20 08:00 Zestril PEG/G-TUBE DAILY@0800 [facility] Metoprolol Tartrate 50 mg 03/21/20 08:00 Lopressor PEG/G-TUBE BID@0800,1600 [facility] Naloxone HCl 0.2 mg 03/20/20 12:27 Narcan IV Q2M PRN Opioid Reversal Polyethylene Glycol 17 gm 03/20/20 18:23 Miralax PEG/G-TUBE DAILY PRN Constipation Pravastatin Sodium 10 mg 03/20/20 21:00 03/20/20 23:43 Pravachol PO 10 mg HS [facility] Administration Prednisone 10 mg 03/21/20 08:00 PEG/G-TUBE DAILY@0800 [facility] Intake and Output 03/20/20 03/21/20 03/21/20 22:59 06:59 14:59 Output Total 1000 Balance -1000 Output: Urine 1000 Other: Voiding Method Indwelling Catheter Indwelling Catheter # Bowel Movements 1 Weight 79.5 kg 03/21/20 05:51 03/21/20 05:51 EKG Interpretations (text) EKG shows atrial fibrillation with a rapid ventricular response Assessment and Plan Plan: Assessment and plan #1 persistent atrial fibrillation, rapid rate on admission. On Eliquis for anticoagulation #2 history of CVA #3 recent prolonged admission in December with Covid 19, suggestion of atelectasis or possible pneumonia on this current chest x-ray #4 PEG tube placement #5 hypertension #6 diabetes #7 hyperlipidemia #8 dementia #9 UTI #10 abnormal troponin, patient on review of prior admissions to the hospital, back to 2016 has always had an abnormal troponin in this range, not suggesting an acute coronary syndrome. Plan We will obtain an echocardiogram with Doppler study. Continue Eliquis for anticoagulation. Patient is currently on metoprolol 50 mg twice a day via PEG tube which she has been on, we will increase that dose to 75 mg twice a day. Further recommendations to follow. DNP note has been reviewed, I agree with a documented findings and plan of care. Patient was seen and examined.
[2020-03-21] MEDS: CHOLECALCIFEROL 1,000 UNIT TAB PEG/G-TUBE SCH (09:40)
[2020-03-21] MEDS: predniSONE 10 MG TAB PEG/G-TUBE SCH (09:40)
[2020-03-21] MEDS: lisinopriL 5 MG TAB PEG/G-TUBE SCH (09:40)
[2020-03-21 11:49] LABS: Glucose,Whole Blood 131 mg/dL (75-99)
[2020-03-21] MEDS: GLYCOPYRROLATE 1 MG TAB PO SCH ×2 (11:57→20:05)
[2020-03-21] MEDS: FERROUS SULFATE ORAL ELIXIR 300 MG/5 ML CUP PEG/G-TUBE SCH (11:57)
[2020-03-21] MEDS: INSULIN DETEMIR (LEVEMIR) 100 UNIT/ML SYR SQ SCH ×2 (11:57→22:34)
[2020-03-21] MEDS: DOCUSATE ORAL SOLN 100 MG/10 ML CUP PEG/G-TUBE SCH (11:57)
[2020-03-21] MEDS: VANCOMYCIN 1,500 MG in SODIUM CHLORIDE 0.9% 250 ML IVPB SCH (11:57)
[2020-03-21] MEDS: SODIUM CHLORIDE 0.9% 1,000 ML IV SCH (11:58)
--- NOTE | 2020-03-21 15:45 | P.CNPUL ---
History of Present Illness Consult date: 03/21/20 Reason for consult: dyspnea Chief complaint: Patient came with right upper extremity swelling and increased somnolence History of present illness: This is a 79-year-old female with history of recent respiratory failure related to covert 19 pneumonia patient was intubated for extended period of time due to failure to wean patient was transferred to, patient transferred to [facility] where she was noted to have increased swelling and increased lethargy patient was brought to emergency department for further evaluation patient was noted to be in A. fib RVR also on anticoagulation patient does have a PICC line in left upper extremity, chest x-ray showed left base underpenetrated with subsegmental atelectasis not much different compared to x-ray performed in January, CT of the head revealed chronic atrophic changes and small vessel changes no acute processes identified, venous Doppler of right upper extremity negative for DVT, due to prior stroke patient is mostly nonverbal and has hemiparesis also have baseline diabetes dyslipidemia and end-stage lung disease hypertension and dementia Review of Systems All systems: negative Past Medical History Past Medical History: Atrial Fibrillation, Asthma, COPD, CVA/TIA, Diabetes Mellitus, Hyperlipidemia, Hypertension, Osteoarthritis (OA) Additional Past Medical History / Comment(s): currently having leakage and tenderness around peg tube site,hx stroke with weakness of legs, unable to bear wt- ECF uses yael lift/wheelchair, hypoxia, [id number] feeding tube, bowel and urine incontinence (uses depends), slurred speach,anemia,glaucoma,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 History of Any Multi-Drug Resistant Organisms: None Reported Past Surgical History: Hysterectomy Additional Past Surgical History / Comment(s): not known at ECF,peg insertion Past Anesthesia/Blood Transfusion Reactions: No Reported Reaction, Unable to Obtain Additional Past Anesthesia/Blood Transfusion Reaction / Comment(s): spouse thinks no problems that he knows of(poor historian), no info at ECF Past Psychological History: No Psychological Hx Reported Smoking Status: Former smoker Past Alcohol Use History: None Reported Additional Past Alcohol Use History / Comment(s): STARTED SMOKING AT AGE 17,SMOKED LESS THAN 1 PPD, QUIT 2001. Past Drug Use History: None Reported - Past Family History Mother Family Medical History: Unable to Obtain Additional Family Medical History / Comment(s): no info at ECF Father History Unknown: Yes Medications and Allergies Home Medications Medication Instructions Recorded Confirmed Type Cholecalciferol [Vitamin D3 (25 2,000 unit PEG/G-TUBE DAILY 12/28/19 03/20/20 History Mcg = 1000 Iu)] Acetaminophen Tab [Tylenol] 650 mg PEG/G-TUBE Q8H PRN 03/20/20 03/20/20 History Apixaban [Eliquis] 2.5 mg PO BID@0800,199903/20/20 03/20/20 History Docusate Oral Soln [Colace Oral 100 mg PEG/G-TUBE DAILY@0803/20/20 03/20/20 History Soln] Ferrous Sulfate Oral Elixir 300 mg PEG/G-TUBE DAILY 03/20/20 03/20/20 History [Feosol Liquid] Folic Acid 1 mg PEG/G-TUBE HS 03/20/20 03/20/20 History Glucerna Shake 1 can PEG/G-TUBE TID 03/20/20 03/20/20 History Glycopyrrolate 1 mg PO BID@0800,199903/20/20 03/20/20 History Insulin Glargine,Hum.rec.anlog 15 unit SQ DAILY@79903/20/20 03/20/20 History [Lantus Solostar] Insulin Glargine,Hum.rec.anlog 30 unit SQ HS@199903/20/20 03/20/20 History [Lantus Solostar] Insulin Lispro [Admelog Solostar] See Protocol SQ Q6H 03/20/20 03/20/20 History Lisinopril [Zestril] 5 mg PEG/G-TUBE DAILY@0803/20/20 03/20/20 History Metoprolol Tartrate [Lopressor] 50 mg PEG/G-TUBE BID@0800,1600 03/20/20 03/20/20 History Polyethylene Glycol 3350 [Miralax] 17 gm PEG/G-TUBE DAILY PRN 03/20/20 03/20/20 History Pravastatin Sodium [Pravachol] 10 mg PEG/G-TUBE HS 03/20/20 03/20/20 History predniSONE 10 mg PEG/G-TUBE DAILY@0800 03/20/20 03/20/20 History Allergies Allergy/AdvReac Type Severity Reaction Status Date / Time No Known Allergies Allergy Verified 03/20/20 13:16 Physical Exam Vitals: Vital Signs Temp Pulse Pulse Resp BP BP Pulse Ox 03/21/20 11:27 97.8 F 100 20 144/77 99 03/21/20 08:25 98.2 F 106 H 20 136/83 94 L 03/21/20 04:00 98.9 F 91 18 119/83 99 03/21/20 01:13 97.7 F 103 H 18 124/89 98 03/21/20 00:00 107 H 19 121/82 93 L 03/20/20 20:00 98.2 F 107 H 17 109/79 95 03/20/20 18:00 108 H 16 99/75 98 03/20/20 17:00 103 H 104/79 Intake and Output 03/21/20 03/21/20 03/21/20 06:59 14:59 22:59 Output Total 1000 350 Balance -1000 -350 Output: Urine 1000 350 Other: Voiding Method Indwelling Catheter Indwelling Catheter # Bowel Movements 1 Weight 79.5 kg 79.5 kg - Constitutional General appearance: cooperative, disheveled - EENT ENT: hard of hearing Ears: bilateral: normal - Neck Carotids: bilateral: upstroke normal - Respiratory Respiratory: bilateral: diminished - Cardiovascular Rhythm: irregularly irregular Heart sounds: normal: S1, S2 - Gastrointestinal General gastrointestinal: decreased bowel sounds - Musculoskeletal Musculoskeletal: generalized weakness Results - Laboratory Findings CBC and BMP: 03/21/20 05:51 03/21/20 05:51 ABG ABG pH 7.47 (7.35-7.45) H 03/20/20 11:18 ABG pCO2 44 mmHg (35-45) 03/20/20 11:18 ABG pO2 75 mmHg (83-108) L 03/20/20 11:18 ABG O2 Saturation 95.3 % (94-97) 03/20/20 11:18 PT/INR, D-dimer PT 10.1 sec (9.0-12.0) 03/20/20 11:03 INR 1.0 (<1.2) 03/20/20 11:03 Abnormal lab findings: Abnormal Labs 03/20/20 03/20/20 03/20/20 11:03 11:03 11:03 MCV 100.1 H APTT 20.4 L ABG pH ABG pO2 ABG HCO3 ABG Total CO2 VBG pH VBG HCO3 BUN 18 H Creatinine 0.36 L Glucose 130 H POC Glucose (mg/dL) AST 37 H Troponin I C-Reactive Protein 10.0 H Total Protein 6.0 L Albumin 3.0 L Urine Appearance Urine Protein Urine Nitrite Ur Leukocyte Esterase Urine WBC Amorphous Sediment Urine Bacteria Urine Mucus Urine Yeast (Budding) 03/20/20 03/20/20 03/20/20 11:03 11:15 11:18 MCV APTT ABG pH 7.47 H ABG pO2 75 L ABG HCO3 32 H ABG Total CO2 33 H VBG pH 7.46 H VBG HCO3 31 H BUN Creatinine Glucose POC Glucose (mg/dL) AST Troponin I 0.073 H* C-Reactive Protein Total Protein Albumin Urine Appearance Urine Protein Urine Nitrite Ur Leukocyte Esterase Urine WBC Amorphous Sediment Urine Bacteria Urine Mucus Urine Yeast (Budding) 03/20/20 03/20/20 03/20/20 12:20 19:37 22:30 MCV APTT ABG pH ABG pO2 ABG HCO3 ABG Total CO2 VBG pH VBG HCO3 BUN Creatinine Glucose POC Glucose (mg/dL) 119 H AST Troponin I C-Reactive Protein Total Protein Albumin Urine Appearance Cloudy H Cloudy H Urine Protein Trace H Urine Nitrite Positive H Ur Leukocyte Esterase Moderate H Moderate H Urine WBC 8 H Amorphous Sediment Many H Urine Bacteria Many H Many H Urine Mucus Few H Rare H Urine Yeast (Budding) Few H 03/21/20 03/21/20 03/21/20 00:30 05:51 05:51 MCV 100.7 H APTT ABG pH ABG pO2 ABG HCO3 ABG Total CO2 VBG pH VBG HCO3 BUN Creatinine 0.34 L Glucose POC Glucose (mg/dL) 113 H AST Troponin I C-Reactive Protein Total Protein 5.3 L Albumin 2.6 L Urine Appearance Urine Protein Urine Nitrite Ur Leukocyte Esterase Urine WBC Amorphous Sediment Urine Bacteria Urine Mucus Urine Yeast (Budding) 03/21/20 11:47 MCV APTT ABG pH ABG pO2 ABG HCO3 ABG Total CO2 VBG pH VBG HCO3 BUN Creatinine Glucose POC Glucose (mg/dL) 131 H AST Troponin I C-Reactive Protein Total Protein Albumin Urine Appearance Urine Protein Urine Nitrite Ur Leukocyte Esterase Urine WBC Amorphous Sediment Urine Bacteria Urine Mucus Urine Yeast (Budding) - Diagnostic Findings Chest x-ray: report reviewed, image reviewed (Finding as noted above) Assessment and Plan Assessment: Altered mental status likely related to multifactorial process, likely related to sepsis due bacteremia due to group D enterococcus and to urinary tract infection may very well be related to enterococcus patient does have the nitrate and leukocyte esterase with many bacteria, also blood culture came back positive for enterococcus A. fib RVR related to sepsis with baseline A. fib Bilateral basal atelectasis due to prior pneumonia History of recent cold with 19 pneumonia and respiratory failure requiring prolonged ventilator support Plan: Continue supportive care Supplemental oxygen Antibiotics with vancomycin Gentle rehydration Deep breathing exercises incentive spirometry Further recommendations pending plan of care as per clinical response of the patient Time with Patient: Greater than 30
[2020-03-21] MEDS: METOPROLOL TARTRATE 25 MG TAB PEG/G-TUBE SCH (16:54)
[2020-03-21 17:36] LABS: Glucose,Whole Blood 242 mg/dL (75-99)
--- NOTE | 2020-03-21 17:45 | P.PN ---
Subjective Progress Note Date: 03/21/20 Soledad guaman, is an 79-year-old female well known to my practice who presented to [facility] emergency room with worsening condition with mental status changes and shortness of breath, she was evaluated in emergency room and had evidence of atrial fibrillation with rapid ventricular r esponse, decision was made to proceed with admitting patient to telemetry floor, pulmonary consultation and cardiology consultation were requested. Patient had a prolonged recent admission, she had positive Covid 19 testing, she developed pneumonia and acute respiratory failure and needed prolonged ICU stay with prolonged mechanical ventilation, prior to that patient has a known history of stroke. Patient was seen and examined in the emergency room, she is alert nonverbal in no apparent distress, she is afebrile, heart rate is 117, respiration rate 36 blood pressure 137/109, pulse ox is 99% on 3 L nasal cannula, her white blood count is 7.0 hemoglobin 14.8 and platelet count 191, kidney function and liver function and electrolytes are within normal limits, troponin is slightly elevated at 0.073, lactic acid normal at 1.1, TSH is normal. On 03/21/2020 patient was seen and examined on the medical floor she is alert and responsive she answer questions by yes or no occasionally she does not seem to be in pain there is no fever or chills, PEG tube feeding has been resumed, PICC line has been removed, blood culture positive, patient started on IV vancomycin infectious disease consultation requested Objective - Vital Signs Vital signs: Vital Signs Temp 98.2 F 03/21/20 08:25 Pulse 106 H 03/21/20 08:25 Resp 20 03/21/20 08:25 BP 136/83 03/21/20 08:25 Pulse Ox 94 L 03/21/20 08:25 Intake & Output 03/20/20 03/21/20 03/21/20 18:59 06:59 18:59 Output Total 1000 Balance -1000 Weight 100.698 kg 79.5 kg 79.5 kg Output: Urine 1000 Other: Voiding Method Indwelling Catheter Indwelling Catheter # Bowel Movements 1 - Exam Patient is alert nonverbal in no apparent distress HEENT head normocephalic and atraumatic Neck is supple no JVD no goiter no lymphadenopathy Chest exam reveals a few scattered crackles in both lung ivy no wheezing Cardiac exam reveals regular heart sounds no gallops no murmurs Abdomen is soft nontender no organomegaly with normal bowel sounds, PEG tube site is clear Extremity exam reveals no edema no cyanosis or clubbing - Labs CBC & Chem 7: 03/21/20 05:51 03/21/20 05:51 Labs: Abnormal Lab Results - Last 24 Hours (Table) 03/20/20 03/20/20 03/20/20 Range/Units 11:03 11:03 11:03 MCV 100.1 H (80.0-100.0) fL APTT 20.4 L (22.0-30.0) sec ABG pH (7.35-7.45) ABG pO2 (83-108) mmHg ABG HCO3 (21-25) mmol/L ABG Total CO2 (19-24) mmol/L VBG pH (7.31-7.41) VBG HCO3 (24-28) mmol/L BUN 18 H (7-17) mg/dL Creatinine 0.36 L (0.52-1.04) mg/dL Glucose 130 H (74-99) mg/dL POC Glucose (mg/dL) (75-99) mg/dL AST 37 H (14-36) U/L Troponin I (0.000-0.034) ng/mL C-Reactive Protein 10.0 H (<10.0) mg/L Total Protein 6.0 L (6.3-8.2) g/dL Albumin 3.0 L (3.5-5.0) g/dL Urine Appearance (Clear) Urine Protein (Negative) Urine Nitrite (Negative) Ur Leukocyte Esterase (Negative) Urine WBC (0-5) /hpf Amorphous Sediment (None) /hpf Urine Bacteria (None) /hpf Urine Mucus (None) /hpf Urine Yeast (Budding) (None) /hpf 03/20/20 03/20/20 03/20/20 Range/Units 11:03 11:15 11:18 MCV (80.0-100.0) fL APTT (22.0-30.0) sec ABG pH 7.47 H (7.35-7.45) ABG pO2 75 L (83-108) mmHg ABG HCO3 32 H (21-25) mmol/L ABG Total CO2 33 H (19-24) mmol/L VBG pH 7.46 H (7.31-7.41) VBG HCO3 31 H (24-28) mmol/L BUN (7-17) mg/dL Creatinine (0.52-1.04) mg/dL Glucose (74-99) mg/dL POC Glucose (mg/dL) (75-99) mg/dL AST (14-36) U/L Troponin I 0.073 H* (0.000-0.034) ng/mL C-Reactive Protein (<10.0) mg/L Total Protein (6.3-8.2) g/dL Albumin (3.5-5.0) g/dL Urine Appearance (Clear) Urine Protein (Negative) Urine Nitrite (Negative) Ur Leukocyte Esterase (Negative) Urine WBC (0-5) /hpf Amorphous Sediment (None) /hpf Urine Bacteria (None) /hpf Urine Mucus (None) /hpf Urine Yeast (Budding) (None) /hpf 03/20/20 03/20/20 03/20/20 Range/Units 12:20 19:37 22:30 MCV (80.0-100.0) fL APTT (22.0-30.0) sec ABG pH (7.35-7.45) ABG pO2 (83-108) mmHg ABG HCO3 (21-25) mmol/L ABG Total CO2 (19-24) mmol/L VBG pH (7.31-7.41) VBG HCO3 (24-28) mmol/L BUN (7-17) mg/dL Creatinine (0.52-1.04) mg/dL Glucose (74-99) mg/dL POC Glucose (mg/dL) 119 H (75-99) mg/dL AST (14-36) U/L Troponin I (0.000-0.034) ng/mL C-Reactive Protein (<10.0) mg/L Total Protein (6.3-8.2) g/dL Albumin (3.5-5.0) g/dL Urine Appearance Cloudy H Cloudy H (Clear) Urine Protein Trace H (Negative) Urine Nitrite Positive H (Negative) Ur Leukocyte Esterase Moderate H Moderate H (Negative) Urine WBC 8 H (0-5) /hpf Amorphous Sediment Many H (None) /hpf Urine Bacteria Many H Many H (None) /hpf Urine Mucus Few H Rare H (None) /hpf Urine Yeast (Budding) Few H (None) /hpf 03/21/20 03/21/20 03/21/20 Range/Units 00:30 05:51 05:51 MCV 100.7 H (80.0-100.0) fL APTT (22.0-30.0) sec ABG pH (7.35-7.45) ABG pO2 (83-108) mmHg ABG HCO3 (21-25) mmol/L ABG Total CO2 (19-24) mmol/L VBG pH (7.31-7.41) VBG HCO3 (24-28) mmol/L BUN (7-17) mg/dL Creatinine 0.34 L (0.52-1.04) mg/dL Glucose (74-99) mg/dL POC Glucose (mg/dL) 113 H (75-99) mg/dL AST (14-36) U/L Troponin I (0.000-0.034) ng/mL C-Reactive Protein (<10.0) mg/L Total Protein 5.3 L (6.3-8.2) g/dL Albumin 2.6 L (3.5-5.0) g/dL Urine Appearance (Clear) Urine Protein (Negative) Urine Nitrite (Negative) Ur Leukocyte Esterase (Negative) Urine WBC (0-5) /hpf Amorphous Sediment (None) /hpf Urine Bacteria (None) /hpf Urine Mucus (None) /hpf Urine Yeast (Budding) (None) /hpf Microbiology - Last 24 Hours (Table) 03/20/20 11:15 Blood Culture - Final Blood Assessment and Plan Plan: 1. Atrial fibrillation with rapid ventricular response, patient received metoprolol, and her heart rate improved, cardiology consult was requested 2. Slight elevation in troponin level, cardiology consult requested 3. Bibasilar consolidation likely atelectasis, patient is well known to Dr. Kamara pulmonary consultation requested 4. Recent history of prolonged admission for Covid 19 pneumonia with acute respiratory failure requiring prolonged mechanical ventilation 5. Previous history of stroke patient has PEG tube for feeding, site inspected and is clear 6. Right arm swelling, Doppler done and was negative for DVT 7. Sepsis with positive blood culture, patient started on IV vancomycin infectious disease consultation requested Will check urine analysis, obtain a blood culture Home medications reviewed and reordered Patient is maintained on Eliquis for stroke prevention Will monitor closely prognosis is guarded due to age and multiple underlying conditions
[2020-03-21] MEDS: PRAVASTATIN SODIUM 20 MG TAB PO SCH (20:05)
[2020-03-21] MEDS: FOLIC ACID 1 MG TAB PEG/G-TUBE SCH (20:05)
[2020-03-22] MEDS: AMPICILLIN-SULBACTAM 3 GM in SODIUM CHLORIDE 0.9% 100 ML IVPB SCH ×5 (00:01→23:37)
[2020-03-22 00:17] LABS: Glucose,Whole Blood 196 mg/dL (75-99)
[2020-03-22] MEDS: VANCOMYCIN 1,500 MG in SODIUM CHLORIDE 0.9% 250 ML IVPB SCH (00:31)
[2020-03-22] MEDS: INSULIN ASPART (NovoLOG) 100 UNIT/ML VIAL SQ SCH ×5 (00:31→23:57)
[2020-03-22 06:17] LABS: Glucose,Whole Blood 275 mg/dL (75-99)
[2020-03-22 07:06] LABS: Basophils % (A) 1 %; Eosinophils # (A) 0.2 k/uL (0-0.7); Eosinophils % (A) 3 %; HCT 46.3 % (34.0-46.0); HGB 15.1 gm/dL (11.4-16.0); Hypochromasia Moderate; Lymphocytes # (A) 1.4 k/uL (1.0-4.8); Lymphocytes % (A) 21 %; MCH 33.3 pg (25.0-35.0); MCHC 32.5 g/dL (31.0-37.0); MCV 102.5 fL (80.0-100.0); Macrocytosis Slight; Mean Platelet Volume 10.1; Monocytes # (A) 0.6 k/uL (0-1.0); Monocytes % (A) 9 %; Neutrophils # (A) 4.1 k/uL (1.3-7.7); Neutrophils % (A) 65 %; Platelet Count 183 k/uL (150-450); RBC 4.52 m/uL (3.80-5.40); RDW 14.8 % (11.5-15.5); WBC 6.4 k/uL (3.8-10.6)
[2020-03-22 07:14] LABS: ALT 28 U/L (4-34); AST 25 U/L (14-36); African American GFR (CKD) >90 (>60 ml/min/1.73 sqM); Albumin 2.6 g/dL (3.5-5.0); Alkaline Phosphatase 91 U/L (38-126); Anion Gap 5 mmol/L; Blood Urea Nitrogen 15 mg/dL (7-17); Calcium 9.7 mg/dL (8.4-10.2); Carbon Dioxide 27 mmol/L (22-30); Chloride 109 mmol/L (98-107); Glucose 278 mg/dL (74-99); Non-African American GFR(CKD) >90 (>60 ml/min/1.73 sqM); Potassium 4.1 mmol/L (3.5-5.1); Sodium 141 mmol/L (137-145); Total Bilirubin 0.6 mg/dL (0.2-1.3); Total Protein 5.2 g/dL (6.3-8.2)
[2020-03-22 07:41] LABS: C Reactive Protein 9.6 mg/L (<10.0)
--- NOTE | 2020-03-22 08:11 | P.CONS ---
History of Present Illness - Reason for Consult Consult date: 03/21/20 Sepsis Requesting physician: Yvonne Dominguez - Chief Complaint Mental status changes and shortness of breath x 1 day - History of Present Illness Patient is 79-year-old -[place] female with a past medical history significant for recent prolonged admission to this facility for COVID 19 pneumonia and prolonged respiratory failure for the patient subsequently was transferred to tertiary care with the patient seemed to have been successfully extubated and the patient currently has been at the halfway patient was brought to the hospital for evaluation of mental status changes likely due to the shortness of breath on arrival to the patient was noticed when A. fib with RVR and has been admitted to the cardiac floor for management of underlying A. fib with RVR patient did have a chest x-ray showed bilateral infiltrates and effusion patient did not have any fever or elevated white count this admission did have a positive UA as well patient also noticed to have a PICC line and start empirically with the patient was getting through this PICC line that has been discontinued and the catheter tip has been sent for culture she was a history of positive blood culture with gram-positive cocci vancomycin was added and infectious disease was consulted for further management of antibiotic therapy most information has been obtained from review the chart as the patient has a very good historian Review of Systems Positive points has been mentioned in HPI complete review could not be obtained because of his underlying mental status Past Medical History Past Medical History: Atrial Fibrillation, Asthma, COPD, CVA/TIA, Diabetes Mellitus, Hyperlipidemia, Hypertension, Osteoarthritis (OA) Additional Past Medical History / Comment(s): currently having leakage and tende rness around peg tube site,hx stroke with weakness of legs, unable to bear wt- [facility] uses yael lift/wheelchair, hypoxia, [id number] feeding tube, bowel and urine incontinence (uses depends), slurred speach,anemia,glaucoma,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 History of Any Multi-Drug Resistant Organisms: None Reported Past Surgical History: Hysterectomy Additional Past Surgical History / Comment(s): not known at [facility],peg insertion Past Anesthesia/Blood Transfusion Reactions: No Reported Reaction, Unable to Obtain Additional Past Anesthesia/Blood Transfusion Reaction / Comm: spouse thinks no problems that he knows of(poor historian), no info at [facility]CF Past Psychological History: No Psychological Hx Reported Smoking Status: Former smoker Past Alcohol Use History: None Reported Additional Past Alcohol Use History / Comment(s): STARTED SMOKING AT AGE 17,SMOKED LESS THAN 1 PPD, QUIT 2001. Past Drug Use History: None Reported - Past Family History Mother Family Medical History: Unable to Obtain Additional Family Medical History / Comment(s): no info at [facility] Father History Unknown: Yes Medications and Allergies Home Medications Medication Instructions Recorded Confirmed Type Cholecalciferol [Vitamin D3 (25 2,000 unit PEG/G-TUBE DAILY 12/28/19 03/20/20 History Mcg = 1000 Iu)] Acetaminophen Tab [Tylenol] 650 mg PEG/G-TUBE Q8H PRN 03/20/20 03/20/20 History Apixaban [Eliquis] 2.5 mg PO BID@0800,199903/20/20 03/20/20 History Docusate Oral Soln [Colace Oral 100 mg PEG/G-TUBE DAILY@0800 03/20/20 03/20/20 History Soln] Ferrous Sulfate Oral Elixir 300 mg PEG/G-TUBE DAILY 03/20/20 03/20/20 History [Feosol Liquid] Folic Acid 1 mg PEG/G-TUBE HS 03/20/20 03/20/20 History Glucerna Shake 1 can PEG/G-TUBE TID 03/20/20 03/20/20 History Glycopyrrolate 1 mg PO BID@0800,199903/20/20 03/20/20 History Insulin Glargine,Hum.rec.anlog 15 unit SQ DAILY@0803/20/20 03/20/20 History [Lantus Solostar] Insulin Glargine,Hum.rec.anlog 30 unit SQ HS@199903/20/20 03/20/20 History [Lantus Solostar] Insulin Lispro [Admelog Solostar] See Protocol SQ Q6H 03/20/20 03/20/20 History Lisinopril [Zestril] 5 mg PEG/G-TUBE DAILY@0800 03/20/20 03/20/20 History Metoprolol Tartrate [Lopressor] 50 mg PEG/G-TUBE BID@0800,1600 03/20/20 03/20/20 History Polyethylene Glycol 3350 [Miralax] 17 gm PEG/G-TUBE DAILY PRN 03/20/20 03/20/20 History Pravastatin Sodium [Pravachol] 10 mg PEG/G-TUBE HS 03/20/20 03/20/20 History predniSONE 10 mg PEG/G-TUBE DAILY@0800 03/20/20 03/20/20 History Allergies Allergy/AdvReac Type Severity Reaction Status Date / Time No Known Allergies Allergy Verified 03/20/20 13:16 Physical Exam Vitals: Vital Signs Temp Pulse Pulse Resp BP BP Pulse Ox 03/21/20 11:27 97.8 F 100 20 144/77 99 03/21/20 08:25 98.2 F 106 H 20 136/83 94 L 03/21/20 04:00 98.9 F 91 18 119/83 99 03/21/20 01:13 97.7 F 103 H 18 124/89 98 03/21/20 00:00 107 H 19 121/82 93 L 03/20/20 20:00 98.2 F 107 H 17 109/79 95 03/20/20 18:00 108 H 16 99/75 98 03/20/20 17:00 103 H 104/79 03/20/20 15:00 101 H 110/68 Intake and Output 03/20/20 03/21/20 03/21/20 22:59 06:59 14:59 Output Total 1000 Balance -1000 Output: Urine 1000 Other: Voiding Method Indwelling Catheter Indwelling Catheter Indwelling Catheter # Bowel Movements 1 Weight 79.5 kg 79.5 kg GENERAL DESCRIPTION: An elderly female lying in bed, no distress. No tachypnea or accessory muscle of respiration use. HEENT: Shows Pallor , no scleral icterus. Oral mucous membrane is dry. No pharyngeal erythema or thrush NECK: Trachea central, no thyromegaly. LUNGS: Unlabored breathing. Decreased breath sounds at the base. No wheeze or crackle. HEART: S1, S2, regular rate and rhythm. No loud murmur ABDOMEN: Soft, no tenderness , guarding or rigidity, no organomegaly EXTREMITIES: No edema of feet. SKIN: No rash, no masses palpable. NEUROLOGICAL: The patient is awake, alert, oriented x1, mood and affect normal. Results CBC & Chem 7: 03/22/20 06:19 03/22/20 06:19 Labs: Abnormal Lab Results - Last 24 Hours (Table) 03/20/20 03/20/20 03/21/20 Range/Units 19:37 22:30 00:30 MCV (80.0-100.0) fL Creatinine (0.52-1.04) mg/dL POC Glucose (mg/dL) 119 H 113 H (75-99) mg/dL Total Protein (6.3-8.2) g/dL Albumin (3.5-5.0) g/dL Urine Appearance Cloudy H (Clear) Urine Nitrite Positive H (Negative) Ur Leukocyte Esterase Moderate H (Negative) Amorphous Sediment Many H (None) /hpf Urine Bacteria Many H (None) /hpf Urine Mucus Rare H (None) /hpf 03/21/20 03/21/20 03/21/20 Range/Units 05:51 05:51 11:47 MCV 100.7 H (80.0-100.0) fL Creatinine 0.34 L (0.52-1.04) mg/dL POC Glucose (mg/dL) 131 H (75-99) mg/dL Total Protein 5.3 L (6.3-8.2) g/dL Albumin 2.6 L (3.5-5.0) g/dL Urine Appearance (Clear) Urine Nitrite (Negative) Ur Leukocyte Esterase (Negative) Amorphous Sediment (None) /hpf Urine Bacteria (None) /hpf Urine Mucus (None) /hpf Microbiology - Last 24 Hours (Table) 03/20/20 11:31 Blood Culture Gram Stain - Preliminary Blood 03/21/20 03:14 Catheter Tip Culture - Preliminary Catheter Tip 03/20/20 11:15 Blood Culture - Final Blood Assessment and Plan Assessment: 1-patient with gram-positive bacteremia source could have been the PICC line has been discontinued versus catheter associated infection in this patient who did have chronic indwelling Dean catheter and did have a positive UA (1) Gram-positive bacteremia Current Visit: Yes Status: Acute Code(s): R78.81 - BACTEREMIA SNOMED Code(s): 020926326699 Plan: 1-blood cultures will be repeated document clearance of bacteremia 2- dean catheter has already been changed obtain a urine culture from the new Dean 3-Vancomycin pharmacy to dose target trough of 15 while watching his kidney function and Vanco trough closely We will follow on clinical condition and cultures to further adjust medication if needed Thank you for this consultation will follow this patient with you Time with Patient: Greater than 30
[2020-03-22 08:37] LABS: Erythrocyte Sedimentation Rate 9 mm/hr (0-20)
[2020-03-22] MEDS: INSULIN DETEMIR (LEVEMIR) 100 UNIT/ML SYR SQ SCH ×2 (09:15→21:06)
[2020-03-22] MEDS: predniSONE 10 MG TAB PEG/G-TUBE SCH (09:15)
[2020-03-22] MEDS: CHOLECALCIFEROL 1,000 UNIT TAB PEG/G-TUBE SCH (09:15)
[2020-03-22] MEDS: APIXABAN 2.5 MG TABLET PO SCH ×2 (09:15→20:55)
[2020-03-22] MEDS: FERROUS SULFATE ORAL ELIXIR 300 MG/5 ML CUP PEG/G-TUBE SCH (09:15)
[2020-03-22] MEDS: METOPROLOL TARTRATE 25 MG TAB PEG/G-TUBE SCH ×2 (09:18→16:14)
[2020-03-22] MEDS ORDERED: VANCOMYCIN TROUGH DUE 1 EACH MISC MISCELLANE ONE (11:00)
--- NOTE | 2020-03-22 11:40 | P.PN ---
Subjective Progress Note Date: 03/22/20 This is a pleasant 79-year-old -Citizen Of [place] female who [facility], she has a known history of prior CVA, diabetes, hyperlipidemia, hypertension, dementia, patient was also admitted to the hospital in December for COVID. Most of her history and information was obtained from recent and prior medical records, as she is unable to provide any history. There is documentation that the patient also has history of atrial fibrillation, she's on Eliquis at home. She has a chronic Sands catheter in place and a PEG tube. Cardiology consultation was requested for atrial fibrillation with a rapid ventricular response. Right arm ultrasound was performed to rule out DVT, came back negative. He was ordered because of sick significant swelling in the right upper extremity. EKG showed atrial fibrillation with a rapid ventricular response. Chest x-ray was a limited study, possible underlying effusions and bi-basilar atelectasis and/or consolidation. CAT scan of the brain did not rev eal any acute changes. Blood pressure 120/80 with a heart rate in the 90s this morning, 99% on 2 L of oxygen. White blood cell count 5.4, hemoglobin 14.7, platelet count 184. Sodium 138, potassium 4.3, BUN 18, creatinine 0.3. Magnesium 2.1, troponin 0.073. C-reactive protein 10.0. BNP 1770. Positive UTI. Coronavirus not detected. 03/22/2020 Patient seen and examined this morning, but pressure 114/60, heart rate in the 90s. She appears to be in a sinus rhythm with frequent PACs and PVCs this morning. White blood cell count 6.4, hemoglobin 15.1, platelet count 183. Sodium 141, potassium 4.1, BUN 15, creatinine 0.3. Objective - Vital Signs Vital signs: Vital Signs Temp 98.2 F 03/22/20 09:00 Pulse 124 H 03/22/20 09:00 Resp 24 03/22/20 09:00 BP 115/63 03/22/20 09:00 Pulse Ox 92 L 03/22/20 09:00 Intake & Output 03/21/20 03/22/20 03/22/20 18:59 06:59 18:59 Intake Total 400 1000 Output Total 350 6 Balance 50 -6 1000 Weight 79.5 kg Intake: Tube Feeding 400 1000 Output: Urine 350 6 Uretheral (Sands) 6 Other: Voiding Method Indwelling Catheter Indwelling Catheter Indwelling Catheter # Bowel Movements 1 - Exam PHYSICAL EXAMINATION: GENERAL: 79-year-old -Citizen Of [place] female in no acute distress at the time of my examination HEENT: Head is atraumatic, normocephalic. Pupils equal, round. Sclera anicteric. Conjunctiva are clear. Mucous membranes of the mouth are moist. Neck is supple. There is no elevated jugular venous pressure. No carotid bruit is heard. HEART EXAMINATION: Heart S1 and S2 irregularly irregular a systolic murmur is heard CHEST EXAMINATION: And reveal fine crackles to the bases ABDOMEN: Soft, nontender. Bowel sounds are heard. No organomegaly noted. PEG tube in place, site reddened EXTREMITIES: 2+ peripheral pulses with no evidence of peripheral edema and no calf tenderness noted. NEUROLOGIC patient is awake, alert, confused. - Labs CBC & Chem 7: 03/22/20 06:19 03/22/20 06:19 Labs: Abnormal Lab Results - Last 24 Hours (Table) 03/21/20 03/21/20 03/22/20 Range/Units 11:47 17:33 00:14 Hct (34.0-46.0) % MCV (80.0-100.0) fL Chloride (98-107) mmol/L Creatinine (0.52-1.04) mg/dL Glucose (74-99) mg/dL POC Glucose (mg/dL) 131 H 242 H 196 H (75-99) mg/dL Total Protein (6.3-8.2) g/dL Albumin (3.5-5.0) g/dL 03/22/20 03/22/20 03/22/20 Range/Units 06:15 06:19 06:19 Hct 46.3 H (34.0-46.0) % MCV 102.5 H (80.0-100.0) fL Chloride 109 H (98-107) mmol/L Creatinine 0.38 L (0.52-1.04) mg/dL Glucose 278 H (74-99) mg/dL POC Glucose (mg/dL) 275 H (75-99) mg/dL Total Protein 5.2 L (6.3-8.2) g/dL Albumin 2.6 L (3.5-5.0) g/dL Microbiology - Last 24 Hours (Table) 03/21/20 03:14 Catheter Tip Culture - Preliminary Catheter Tip Group D Enterococcus Yeast species 03/20/20 11:31 Blood Culture Gram Stain - Preliminary Blood Blood Culture - Preliminary Group D Enterococcus Assessment and Plan Plan: Assessment and plan #1 persistent atrial fibrillation, rapid rate on admission. On Eliquis for anticoagulation #2 history of CVA #3 recent prolonged admission in December with Covid 19, suggestion of atelectasis or possible pneumonia on this current chest x-ray #4 PEG tube placement #5 hypertension #6 diabetes #7 hyperlipidemia #8 dementia #9 UTI #10 abnormal troponin, patient on review of prior admissions to the hospital, back to 2016 has always had an abnormal troponin in this range, not suggesting an acute coronary syndrome. Plan We will review the echocardiogram with Doppler study. Continue Eliquis for anticoagulation. Patient is currently on metoprolol 75 mg twice a day via PEG tube. DNP note has been reviewed, I agree with a documented findings and plan of care. Patient was seen and examined.
[2020-03-22] MEDS ORDERED: VANCOMYCIN 1,000 MG in SODIUM CHLORIDE 0.9% 250 ML IVPB SCH (12:00)
[2020-03-22 12:01] LABS: Glucose,Whole Blood 238 mg/dL (75-99)
[2020-03-22] MEDS: lisinopriL 5 MG TAB PEG/G-TUBE SCH (12:09)
[2020-03-22] MEDS: DOCUSATE ORAL SOLN 100 MG/10 ML CUP PEG/G-TUBE SCH (12:09)
[2020-03-22] MEDS: GLYCOPYRROLATE 1 MG TAB PO SCH ×2 (12:09→20:55)
[2020-03-22] MEDS: VANCOMYCIN 1,250 MG in SODIUM CHLORIDE 0.9% 250 ML IVPB SCH (12:47)
[2020-03-22] MEDS ORDERED: FUROSEMIDE 10 MG/ML 4 ML VIAL IV STA (13:59)
--- NOTE | 2020-03-22 14:16 | PN ---
PROGRESS NOTE DATE OF SERVICE: 03/22/2020 REASON FOR FOLLOWUP: Enterococcus faecalis bacteremia. INTERVAL HISTORY: Patient is currently afebrile. The patient is breathing comfortably. No chest pain. No cough. No vomiting or diarrhea has been reported. Patient herself unable to provide any history. EXAMINATION: Blood pressure 127/74 with a pulse of 92. Temperature 97.9. She is 90% on 2 L nasal cannula. General description is an elderly female lying in bed in no distress. Respiratory system: Unlabored breathing, clear to auscultation. Heart S1, S2. Regular rate and rhythm. Abdomen: Soft, no tenderness. LABS: Hemoglobin is 14.3, white count 6.4. Creatinine 0.38. Vanco trough is high side. Catheter culture positive for Enterococcus. DIAGNOSTIC IMPRESSION AND PLAN: Patient with Enterococcus bacteremia. Source is the IV, which has been discontinued as the catheter also showing the same pathogen. Blood culture has been ordered, currently pending. Patient on Unasyn and vancomycin with vancomycin dose cut back to keep the trough around 15, adjusting a bit further based on culture results. MMODL / IJN: [id number] /
[2020-03-22] MEDS: FLUCONAZOLE ORAL SUSP 1,400 MG/35 ML BOTTLE PEG/G-TUBE SCH (16:13)
--- NOTE | 2020-03-22 16:15 | P.PN ---
Subjective Progress Note Date: 03/22/20 Soledad guaman, is an 79-year-old female well known to my practice who presented to [facility] emergency room with worsening condition with mental status changes and shortness of breath, she was evaluated in emergency room and had evidence of atrial fibrillation with rapid ventricular r esponse, decision was made to proceed with admitting patient to telemetry floor, pulmonary consultation and cardiology consultation were requested. Patient had a prolonged recent admission, she had positive Covid 19 testing, she developed pneumonia and acute respiratory failure and needed prolonged ICU stay with prolonged mechanical ventilation, prior to that patient has a known history of stroke. Patient was seen and examined in the emergency room, she is alert nonverbal in no apparent distress, she is afebrile, heart rate is 117, respiration rate 36 blood pressure 137/109, pulse ox is 99% on 3 L nasal cannula, her white blood count is 7.0 hemoglobin 14.8 and platelet count 191, kidney function and liver function and electrolytes are within normal limits, troponin is slightly elevated at 0.073, lactic acid normal at 1.1, TSH is normal. On 03/21/2020 patient was seen and examined on the medical floor she is alert and responsive she answer questions by yes or no occasionally she does not seem to be in pain there is no fever or chills, PEG tube feeding has been resumed, PICC line has been removed, blood culture positive, patient started on IV vancomycin infectious disease consultation requested. On 03/22/2020 patient was seen and examined on the telemetry floor she is alert and responsive in no apparent distress there is no fever or chills there is evidence of oral thrush, patient is maintained on PEG tube for feeding, cardiology and infectious disease network pricing consultant are following Objective - Vital Signs Vital signs: Vital Signs Temp 97.9 F 03/22/20 04:00 Pulse 91 03/22/20 04:00 Resp 16 03/22/20 04:00 BP 112/72 03/22/20 04:00 Pulse Ox 93 L 03/22/20 04:00 Intake & Output 03/21/20 03/22/20 03/22/20 18:59 06:59 18:59 Intake Total 400 Output Total 350 6 Balance 50 -6 Weight 79.5 kg Intake: Tube Feeding 400 Output: Urine 350 6 Uretheral ([place]) 6 Other: Voiding Method Indwelling Catheter Indwelling Catheter # Bowel Movements 1 - Exam Patient is alert nonverbal in no apparent distress HEENT head normocephalic and atraumatic Neck is supple no JVD no goiter no lymphadenopathy Chest exam reveals a few scattered crackles in both lung ivy no wheezing Cardiac exam reveals regular heart sounds no gallops no murmurs Abdomen is soft nontender no organomegaly with normal bowel sounds, PEG tube site is clear Extremity exam reveals no edema no cyanosis or clubbing - Labs CBC & Chem 7: 03/22/20 06:19 03/22/20 06:19 Labs: Abnormal Lab Results - Last 24 Hours (Table) 03/21/20 03/21/20 03/22/20 Range/Units 11:47 17:33 00:14 Hct (34.0-46.0) % MCV (80.0-100.0) fL Chloride (98-107) mmol/L Creatinine (0.52-1.04) mg/dL Glucose (74-99) mg/dL POC Glucose (mg/dL) 131 H 242 H 196 H (75-99) mg/dL Total Protein (6.3-8.2) g/dL Albumin (3.5-5.0) g/dL 03/22/20 03/22/20 03/22/20 Range/Units 06:15 06:19 06:19 Hct 46.3 H (34.0-46.0) % MCV 102.5 H (80.0-100.0) fL Chloride 109 H (98-107) mmol/L Creatinine 0.38 L (0.52-1.04) mg/dL Glucose 278 H (74-99) mg/dL POC Glucose (mg/dL) 275 H (75-99) mg/dL Total Protein 5.2 L (6.3-8.2) g/dL Albumin 2.6 L (3.5-5.0) g/dL Microbiology - Last 24 Hours (Table) 03/21/20 03:14 Catheter Tip Culture - Preliminary Catheter Tip Group D Enterococcus Yeast species 03/20/20 11:31 Blood Culture Gram Stain - Preliminary Blood Blood Culture - Preliminary Group D Enterococcus Assessment and Plan Plan: 1. Atrial fibrillation with rapid ventricular response, patient received metoprolol, and her heart rate improved, cardiology consult was requested 2. Slight elevation in troponin level, cardiology consult requested 3. Bibasilar consolidation likely atelectasis, patient is well known to Dr. Kamara pulmonary consultation requested 4. Recent history of prolonged admission for Covid 19 pneumonia with acute respiratory failure requiring prolonged mechanical ventilation 5. Previous history of stroke patient has PEG tube for feeding, site inspected and is clear 6. Right arm swelling, Doppler done and was negative for DVT 7. Sepsis with positive blood culture, patient started on IV vancomycin infectious disease consultation requested Medication and labs reviewed continue current management Patient is maintained on Eliquis for stroke prevention Will monitor closely prognosis is guarded due to age and multiple underlying conditions
[2020-03-22] MEDS: SODIUM CHLORIDE 0.9% 1,000 ML IV SCH (17:47)
[2020-03-22 18:46] LABS: Glucose,Whole Blood 111 mg/dL (75-99)
--- NOTE | 2020-03-22 20:15 | ECHOF ---
Referral Reason:afib MEASUREMENTS -------- HEIGHT: 167.6 cm WEIGHT: 79.4 kg BP: RVIDd: 2.5 cm (< 3.3) IVSd: 1.4 cm (0.6 - 1.1) LVIDd: 3.5 cm (3.9 - 5.3) LVPWd: 1.5 cm (0.6 - 1.1) IVSs: 2.0 cm LVIDs: 2.1 cm LVPWs: 1.8 cm Ao Diam: 2.6 cm (2.0 - 3.7) AV Cusp: 1.8 cm (1.5 - 2.6) LA Diam: 4.0 cm (2.7 - 3.8) MV EXCURSION: 13.536 mm (> 18.000) MV EF SLOPE: 126 mm/s (70 - 150) EPSS: 1.0 cm RAP: 5.00 mmHg RVSP: 35.07 mmHg FINDINGS -------- Atrial fibrillation. This was a technically adequate study. The left ventricular size is normal. There is moderate concentric left ventricular hypertrophy. O verall left ventricular systolic function is low-normal with, an EF between 50 - 55 %. The right ventricle is normal in size. The left atrium is mildly dilated. The right atrial size is normal. Aortic valve is trileaflet and is mildly thickened. The mitral valve is normal. The mitral valve leaflets are mildly thickened. Bhtb-zi-jdnatnjo mitr al regurgitation is present. The tricuspid valve appears structurally normal. Mild tricuspid regurgitation present. Right vent ricular systolic pressure is normal at < 35 mmHg. There is no pulmonic regurgitation present. The aortic root size is normal. IVC Not well visulized. There is a small, generalized pericardial effusion present. CONCLUSIONS -------- 1. Atrial fibrillation. 2. This was a technically adequate study. 3. The left ventricular size is normal. 4. There is moderate concentric left ventricular hypertrophy. 5. Overall left ventricular systolic function is low-normal with, an EF between 50 - 55 %. 6. The right ventricle is normal in size. 7. The left atrium is mildly dilated. 8. The right atrial size is normal. 9. Aortic valve is trileaflet and is mildly thickened. 10. The mitral valve is normal. 11. The mitral valve leaflets are mildly thickened. 12. Qafz-xu-akfytbfx mitral regurgitation is present. 13. The tricuspid valve appears structurally normal. 14. Mild tricuspid regurgitation present. 15. Right ventricular systolic pressure is normal at < 35 mmHg. 16. There is no pulmonic regurgitation present. 17. The aortic root size is normal. 18. IVC Not well visulized. 19. There is a small, generalized pericardial effusion present. CORN MILLER: Adeline Daniels RDCS
[2020-03-22] MEDS: FOLIC ACID 1 MG TAB PEG/G-TUBE SCH (20:55)
[2020-03-22] MEDS: PRAVASTATIN SODIUM 20 MG TAB PO SCH (20:55)
[2020-03-22 21:03] LABS: Glucose,Whole Blood 52 mg/dL (75-99)
[2020-03-22] MEDS ORDERED: DEXTROSE 50% SYRINGE 50 ML IVP ONE ×2 (21:03→23:49)
[2020-03-22 21:18] LABS: Glucose,Whole Blood 114 mg/dL (75-99)
[2020-03-22 23:48] LABS: Glucose,Whole Blood 56 mg/dL (75-99)
[2020-03-22 23:51] LABS: Glucose,Whole Blood 54 mg/dL (75-99)
[2020-03-22 23:56] LABS: Glucose,Whole Blood 248 mg/dL (75-99)
[2020-03-23 00:36] LABS: Glucose,Whole Blood 160 mg/dL (75-99)
[2020-03-23] MEDS: VANCOMYCIN 1,250 MG in SODIUM CHLORIDE 0.9% 250 ML IVPB SCH ×2 (01:25→12:40)
[2020-03-23 01:33] LABS: Glucose,Whole Blood 165 mg/dL (75-99)
[2020-03-23] MEDS: AMPICILLIN-SULBACTAM 3 GM in SODIUM CHLORIDE 0.9% 100 ML IVPB SCH ×4 (05:22→23:26)
[2020-03-23 06:20] LABS: Glucose,Whole Blood 99 mg/dL (75-99)
[2020-03-23] MEDS: INSULIN ASPART (NovoLOG) 100 UNIT/ML VIAL SQ SCH ×3 (06:35→18:38)
[2020-03-23 08:10] LABS: Basophils # (A) 0.1 k/uL (0-0.2); Basophils % (A) 1 %; Eosinophils # (A) 0.2 k/uL (0-0.7); Eosinophils % (A) 4 %; HCT 45.8 % (34.0-46.0); HGB 13.9 gm/dL (11.4-16.0); Hypochromasia Moderate; Lymphocytes # (A) 1.7 k/uL (1.0-4.8); Lymphocytes % (A) 26 %; MCH 30.9 pg (25.0-35.0); MCHC 30.4 g/dL (31.0-37.0); MCV 101.8 fL (80.0-100.0); Macrocytosis Slight; Mean Platelet Volume 9.4; Monocytes # (A) 0.6 k/uL (0-1.0); Monocytes % (A) 8 %; Neutrophils % (A) 59 %; Platelet Count 185 k/uL (150-450); RDW 14.7 % (11.5-15.5); WBC 6.7 k/uL (3.8-10.6)
[2020-03-23 08:22] LABS: ALT 24 U/L (4-34); AST 21 U/L (14-36); African American GFR (CKD) >90 (>60 ml/min/1.73 sqM); Albumin 2.8 g/dL (3.5-5.0); Alkaline Phosphatase 83 U/L (38-126); Anion Gap 4 mmol/L; Blood Urea Nitrogen 11 mg/dL (7-17); Calcium 9.8 mg/dL (8.4-10.2); Carbon Dioxide 33 mmol/L (22-30); Chloride 106 mmol/L (98-107); Glucose 87 mg/dL (74-99); Non-African American GFR(CKD) >90 (>60 ml/min/1.73 sqM); Potassium 3.2 mmol/L (3.5-5.1); Sodium 143 mmol/L (137-145); Total Bilirubin 0.7 mg/dL (0.2-1.3); Total Protein 5.7 g/dL (6.3-8.2)
--- NOTE | 2020-03-23 09:00 | XR ---
EXAMINATION TYPE: XR chest 1V portable DATE OF EXAM: 03/23/2020 COMPARISON: 03/20/2020 HISTORY: Follow-up pneumonia TECHNIQUE: Single frontal view of the chest is obtained. FINDINGS: Bilateral lower lobe infiltrate and small effusion. No pneumothorax. Atherosclerotic haas e aorta. No overt failure. Heart mildly enlarged. IMPRESSION: Bilateral lower lobe infiltrate and small effusion.
[2020-03-23] MEDS: APIXABAN 2.5 MG TABLET PO SCH ×2 (09:48→22:31)
[2020-03-23] MEDS: CHOLECALCIFEROL 1,000 UNIT TAB PEG/G-TUBE SCH (09:48)
[2020-03-23] MEDS: FLUCONAZOLE ORAL SUSP 1,400 MG/35 ML BOTTLE PEG/G-TUBE SCH (09:48)
[2020-03-23] MEDS: lisinopriL 5 MG TAB PEG/G-TUBE SCH (09:48)
[2020-03-23] MEDS: predniSONE 10 MG TAB PEG/G-TUBE SCH (09:48)
[2020-03-23] MEDS: METOPROLOL TARTRATE 25 MG TAB PEG/G-TUBE SCH ×2 (09:48→17:10)
[2020-03-23] MEDS: GLYCOPYRROLATE 1 MG TAB PO SCH ×2 (09:49→22:32)
[2020-03-23] MEDS: INSULIN DETEMIR (LEVEMIR) 100 UNIT/ML SYR SQ SCH ×2 (09:49→20:00)
[2020-03-23] MEDS: FERROUS SULFATE ORAL ELIXIR 300 MG/5 ML CUP PEG/G-TUBE SCH (09:49)
[2020-03-23] MEDS: DOCUSATE ORAL SOLN 100 MG/10 ML CUP PEG/G-TUBE SCH (09:50)
[2020-03-23] MEDS ORDERED: FUROSEMIDE 10 MG/ML 2 ML VIAL IV ONE (10:17)
--- NOTE | 2020-03-23 10:17 | P.PN ---
Subjective Progress Note Date: 03/23/20 Principal diagnosis: Altered mental status likely related to multifactorial process, likely related to sepsis due bacteremia due to group D enterococcus and to urinary tract infect ion may very well be related to enterococcus patient does have the nitrate and leukocyte esterase with many bacteria, also blood culture came back positive for enterococcus, as well as related to baseline condition of stroke and hemiparesis A. fib RVR related to sepsis with baseline A. fib Bilateral basal atelectasis due to prior pneumonia History of recent covid-19 pneumonia and respiratory failure requiring prolonged ventilator support 03/23/2020, patient seen eval examined during the rounds reviewed medications reviewed, chest x-ray from this morning reviewed as well patient has bilateral atelectasis along with small bilateral pleural effusion, we'll give another dose of Lasix today, and titrate oxygen down to baseline This is a 79-year-old female with history of recent respiratory failure related to covert 19 pneumonia patient was intubated for extended period of time due to failure to wean patient was transferred to, patient transferred to assisted where she was noted to have increased swelling and increased lethargy patient was brought to emergency department for further evaluation patient was noted to be in A. fib RVR also on anticoagulation patient does have a PICC line in left upper extremity, chest x-ray showed left base underpenetrated with subsegmental atelectasis not much different compared to x-ray performed in January, CT of the head revealed chronic atrophic changes and small vessel changes no acute processes identified, venous Doppler of right upper extremity negative for DVT, due to prior stroke patient is mostly nonverbal and has hemiparesis also have baseline diabetes dyslipidemia and end-stage lung disease hypertension and dementia Objective - Vital Signs Vital signs: Vital Signs Temp 97.7 F 03/23/20 03:56 Pulse 101 H 03/23/20 03:56 Resp 20 03/23/20 03:56 BP 126/80 03/23/20 03:56 Pulse Ox 99 03/23/20 03:56 Intake & Output 03/22/20 03/23/20 03/23/20 18:59 06:59 18:59 Intake Total 1000 Output Total 2350 500 Balance -1350 -500 Intake: Tube Feeding 1000 Output: Urine 2350 500 Other: Voiding Method Indwelling Catheter Indwelling Catheter # Bowel Movements 1 - Exam - Constitutional General appearance: cooperative, disheveled, arousable to follow simple commands - EENT ENT: hard of hearing Ears: bilateral: normal - Neck Carotids: bilateral: upstroke normal - Respiratory Respiratory: bilateral: diminished - Cardiovascular Rhythm: irregularly irregular Heart sounds: normal: S1, S2 - Gastrointestinal General gastrointestinal: decreased bowel sounds - Musculoskeletal Musculoskeletal: generalized weakness - Labs CBC & Chem 7: 03/23/20 07:35 03/23/20 07:35 Labs: Abnormal Lab Results - Last 24 Hours (Table) 03/22/20 03/22/20 03/22/20 Range/Units 11:59 18:44 21:01 MCV (80.0-100.0) fL MCHC (31.0-37.0) g/dL Potassium (3.5-5.1) mmol/L Carbon Dioxide (22-30) mmol/L Creatinine (0.52-1.04) mg/dL POC Glucose (mg/dL) 238 H 111 H 52 L (75-99) mg/dL Total Protein (6.3-8.2) g/dL Albumin (3.5-5.0) g/dL 03/22/20 03/22/20 03/22/20 Range/Units 21:17 23:47 23:49 MCV (80.0-100.0) fL MCHC (31.0-37.0) g/dL Potassium (3.5-5.1) mmol/L Carbon Dioxide (22-30) mmol/L Creatinine (0.52-1.04) mg/dL POC Glucose (mg/dL) 114 H 56 L 54 L (75-99) mg/dL Total Protein (6.3-8.2) g/dL Albumin (3.5-5.0) g/dL 03/22/20 03/23/20 03/23/20 Range/Units 23:55 00:34 01:31 MCV (80.0-100.0) fL MCHC (31.0-37.0) g/dL Potassium (3.5-5.1) mmol/L Carbon Dioxide (22-30) mmol/L Creatinine (0.52-1.04) mg/dL POC Glucose (mg/dL) 248 H 160 H 165 H (75-99) mg/dL Total Protein (6.3-8.2) g/dL Albumin (3.5-5.0) g/dL 03/23/20 03/23/20 Range/Units 07:35 07:35 MCV 101.8 H (80.0-100.0) fL MCHC 30.4 L (31.0-37.0) g/dL Potassium 3.2 L (3.5-5.1) mmol/L Carbon Dioxide 33 H (22-30) mmol/L Creatinine 0.40 L (0.52-1.04) mg/dL POC Glucose (mg/dL) (75-99) mg/dL Total Protein 5.7 L (6.3-8.2) g/dL Albumin 2.8 L (3.5-5.0) g/dL Microbiology - Last 24 Hours (Table) 03/22/20 06:19 Blood Culture - Preliminary Blood No Growth after 24 hours 03/20/20 11:31 Blood Culture Gram Stain - Final Blood Blood Culture - Final Enterococcus faecalis 03/21/20 03:14 Catheter Tip Culture - Preliminary Catheter Tip Group D Enterococcus Yeast species Assessment and Plan Assessment: Altered mental status likely related to multifactorial process, likely related to sepsis due bacteremia due to group D enterococcus and to urinary tract infection may very well be related to enterococcus as well as baseline stroke Sepsis due to enterococcus and bacteremia blood culture came back positive for enterococcus Acute on chronic hypoxic respiratory failure Fluid overload and pleural effusion A. fib RVR related to sepsis with baseline A. fib Bilateral basal atelectasis due to prior pneumonia History of recent cold with 19 pneumonia and respiratory failure requiring prolonged ventilator support Plan: Continue supportive care Supplemental oxygen, can be titrated down to baseline 2 L nasal cannula Antibiotics as per ID Will give a dose of Lasix Deep breathing exercises incentive spirometry Further recommendations pending plan of care as per clinical response of the patient
[2020-03-23 11:54] LABS: Glucose,Whole Blood 79 mg/dL (75-99)
[2020-03-23] MEDS ORDERED: Potassium Replacement Protocol 1 EACH MISC MISCELLANE PRN (12:21)
[2020-03-23] MEDS: SODIUM CHLORIDE 0.9% 1,000 ML IV SCH (12:41)
[2020-03-23] MEDS: POTASSIUM CHLORIDE ER 20 MEQ TAB.ER PO SCH ×2 (12:41→14:13)
--- NOTE | 2020-03-23 13:12 | P.PN ---
Subjective Progress Note Date: 03/23/20 Soledad guaman, is an 79-year-old female well known to my practice who presented to [facility] emergency room with worsening condition with mental status changes and shortness of breath, she was evaluated in emergency room and had evidence of atrial fibrillation with rapid ventricular r esponse, decision was made to proceed with admitting patient to telemetry floor, pulmonary consultation and cardiology consultation were requested. Patient had a prolonged recent admission, she had positive Covid 19 testing, she developed pneumonia and acute respiratory failure and needed prolonged ICU stay with prolonged mechanical ventilation, prior to that patient has a known history of stroke. Patient was seen and examined in the emergency room, she is alert nonverbal in no apparent distress, she is afebrile, heart rate is 117, respiration rate 36 blood pressure 137/109, pulse ox is 99% on 3 L nasal cannula, her white blood count is 7.0 hemoglobin 14.8 and platelet count 191, kidney function and liver function and electrolytes are within normal limits, troponin is slightly elevated at 0.073, lactic acid normal at 1.1, TSH is normal. On 03/21/2020 patient was seen and examined on the medical floor she is alert and responsive she answer questions by yes or no occasionally she does not seem to be in pain there is no fever or chills, PEG tube feeding has been resumed, PICC line has been removed, blood culture positive, patient started on IV vancomycin infectious disease consultation requested. On 03/22/2020 patient was seen and examined on the telemetry floor she is alert and responsive in no apparent distress there is no fever or chills there is evidence of oral thrush, patient is maintained on PEG tube for feeding, cardiology and infectious disease renewable energy consultant are following. On 03/23/2020 patient was seen and examined on the telemetry floor she is alert, responsive in no apparent distress there is no fever or chills no chest pain or shortness of breath no cough patient is maintained on PEG tube for feeding. Potassium is low at 3.2 we are correcting per protocol Objective - Vital Signs Vital signs: Vital Signs Temp 97.7 F 03/23/20 11:48 Pulse 80 03/23/20 11:48 Resp 18 03/23/20 11:48 BP 123/74 03/23/20 11:48 Pulse Ox 92 L 07/03/20 11:48 Intake & Output 03/22/20 03/23/20 03/23/20 18:59 06:59 18:59 Intake Total 1000 1999 Output Total 2350 500 Balance -1350 -500 1999 Weight 76.5 kg Intake: Tube Feeding 1000 1999 Output: Urine 2350 500 Other: Voiding Method Indwelling Catheter Indwelling Catheter Indwelling Catheter # Bowel Movements 1 - Exam Patient is alert nonverbal in no apparent distress HEENT head normocephalic and atraumatic Neck is supple no JVD no goiter no lymphadenopathy Chest exam reveals a few scattered crackles in both lung ivy no wheezing Cardiac exam reveals regular heart sounds no gallops no murmurs Abdomen is soft nontender no organomegaly with normal bowel sounds, PEG tube site is clear Extremity exam reveals no edema no cyanosis or clubbing - Labs CBC & Chem 7: 03/23/20 07:35 03/23/20 07:35 Labs: Abnormal Lab Results - Last 24 Hours (Table) 03/22/20 03/22/20 03/22/20 Range/Units 18:44 21:01 21:17 MCV (80.0-100.0) fL MCHC (31.0-37.0) g/dL Potassium (3.5-5.1) mmol/L Carbon Dioxide (22-30) mmol/L Creatinine (0.52-1.04) mg/dL POC Glucose (mg/dL) 111 H 52 L 114 H (75-99) mg/dL Total Protein (6.3-8.2) g/dL Albumin (3.5-5.0) g/dL 03/22/20 03/22/20 03/22/20 Range/Units 23:47 23:49 23:55 MCV (80.0-100.0) fL MCHC (31.0-37.0) g/dL Potassium (3.5-5.1) mmol/L Carbon Dioxide (22-30) mmol/L Creatinine (0.52-1.04) mg/dL POC Glucose (mg/dL) 56 L 54 L 248 H (75-99) mg/dL Total Protein (6.3-8.2) g/dL Albumin (3.5-5.0) g/dL 03/23/20 03/23/20 03/23/20 Range/Units 00:34 01:31 07:35 MCV 101.8 H (80.0-100.0) fL MCHC 30.4 L (31.0-37.0) g/dL Potassium (3.5-5.1) mmol/L Carbon Dioxide (22-30) mmol/L Creatinine (0.52-1.04) mg/dL POC Glucose (mg/dL) 160 H 165 H (75-99) mg/dL Total Protein (6.3-8.2) g/dL Albumin (3.5-5.0) g/dL 03/23/20 Range/Units 07:35 MCV (80.0-100.0) fL MCHC (31.0-37.0) g/dL Potassium 3.2 L (3.5-5.1) mmol/L Carbon Dioxide 33 H (22-30) mmol/L Creatinine 0.40 L (0.52-1.04) mg/dL POC Glucose (mg/dL) (75-99) mg/dL Total Protein 5.7 L (6.3-8.2) g/dL Albumin 2.8 L (3.5-5.0) g/dL Microbiology - Last 24 Hours (Table) 03/21/20 03:14 Catheter Tip Culture - Preliminary Catheter Tip Enterococcus faecalis VRE Yeast species 03/22/20 06:19 Blood Culture - Preliminary Blood No Growth after 24 hours 03/20/20 11:31 Blood Culture Gram Stain - Final Blood Blood Culture - Final Enterococcus faecalis Assessment and Plan Plan: 1. Atrial fibrillation with rapid ventricular response, patient received metoprolol, and her heart rate improved, cardiology consult was requested 2. Slight elevation in troponin level, cardiology consult requested 3. Bibasilar consolidation likely atelectasis, patient is well known to Dr. Kamara pulmonary consultation requested 4. Recent history of prolonged admission for Covid 19 pneumonia with acute respiratory failure requiring prolonged mechanical ventilation 5. Previous history of stroke patient has PEG tube for feeding, site inspected and is clear 6. Right arm swelling, Doppler done and was negative for DVT 7. Sepsis with positive blood culture, patient started on IV vancomycin infectious disease consultation requested Medication and labs reviewed continue current management Cardiology and pulmonary consultation reviewed Patient is maintained on Eliquis for stroke prevention Will monitor closely prognosis is guarded due to age and multiple underlying conditions
[2020-03-23 14:59] LABS: Glucose,Whole Blood 111 mg/dL (75-99)
[2020-03-23] MEDS: PRAVASTATIN SODIUM 20 MG TAB PO SCH (22:31)
[2020-03-23] MEDS: FOLIC ACID 1 MG TAB PEG/G-TUBE SCH (22:31)
--- NOTE | 2020-03-23 22:48 | PN ---
PROGRESS NOTE DATE OF SERVICE: 03/23/2020. REASON FOR FOLLOWUP: Enterococcus faecalis bacteremia possibly INTERVAL HISTORY: The patient is currently afebrile. Patient is breathing more comfortably. However, the patient is more lethargic. He is hemodynamically stable, not on pressor support. No vomiting or diarrhea or any change reported by nursing staff. Patient herself unable to provide any history. On examination, blood pressure 118/79 with a pulse of 93. Temperature is 97.9. She is 99% on 13 L nasal cannula. General description is an elderly female lying in bed in no distress. Respiratory system: Unlabored breathing. Clear to auscultation anteriorly. Heart S1, S2. Regular rate and rhythm. Abdomen soft, no tenderness. LABS: Hemoglobin is 13.8, white count 6.7, BUN of 11, creatinine 0.40. Blood culture with Enterococcus faecalis that is Vancomycin sensitive. Catheter tip was VRE and yeast species. Blood culture repeat 03/22 has been negative. DIAGNOSTIC IMPRESSION AND PLAN: Patient with Enterococcus faecalis bacteremia, source likely related to the IV site that has been discontinued. The patient did have a positive UA. Unfortunately no cultures were done on the same. She is covered with Unasyn. We will discontinue vancomycin and monitor clinical course closely. MMODL / IJN: [id number] /
[2020-03-24 00:09] LABS: Glucose,Whole Blood 78 mg/dL (75-99)
[2020-03-24] MEDS: INSULIN ASPART (NovoLOG) 100 UNIT/ML VIAL SQ SCH ×5 (00:26→23:57)
[2020-03-24] MEDS: AMPICILLIN-SULBACTAM 3 GM in SODIUM CHLORIDE 0.9% 100 ML IVPB SCH ×4 (05:48→23:43)
[2020-03-24 06:16] LABS: Glucose,Whole Blood 72 mg/dL (75-99)
[2020-03-24 07:06] LABS: Basophils # (A) 0.1 k/uL (0-0.2); Basophils % (A) 1 %; Eosinophils # (A) 0.3 k/uL (0-0.7); Eosinophils % (A) 4 %; HGB 14.2 gm/dL (11.4-16.0); Hypochromasia Moderate; Lymphocytes # (A) 1.9 k/uL (1.0-4.8); Lymphocytes % (A) 30 %; MCH 31.1 pg (25.0-35.0); MCHC 30.8 g/dL (31.0-37.0); MCV 101.2 fL (80.0-100.0); Macrocytosis Slight; Mean Platelet Volume 9.4; Monocytes # (A) 0.5 k/uL (0-1.0); Monocytes % (A) 7 %; Neutrophils # (A) 3.6 k/uL (1.3-7.7); Neutrophils % (A) 56 %; Platelet Count 190 k/uL (150-450); RBC 4.55 m/uL (3.80-5.40); RDW 14.8 % (11.5-15.5); WBC 6.4 k/uL (3.8-10.6)
[2020-03-24 07:18] LABS: ALT 21 U/L (4-34); AST 19 U/L (14-36); African American GFR (CKD) >90 (>60 ml/min/1.73 sqM); Albumin 2.8 g/dL (3.5-5.0); Alkaline Phosphatase 91 U/L (38-126); Anion Gap 4 mmol/L; Blood Urea Nitrogen 9 mg/dL (7-17); Calcium 9.7 mg/dL (8.4-10.2); Carbon Dioxide 30 mmol/L (22-30); Chloride 108 mmol/L (98-107); Glucose 63 mg/dL (74-99); Non-African American GFR(CKD) >90 (>60 ml/min/1.73 sqM); Potassium 3.4 mmol/L (3.5-5.1); Sodium 142 mmol/L (137-145); Total Protein 5.3 g/dL (6.3-8.2)
[2020-03-24] MEDS: FLUCONAZOLE ORAL SUSP 1,400 MG/35 ML BOTTLE PEG/G-TUBE SCH (09:05)
[2020-03-24] MEDS: FERROUS SULFATE ORAL ELIXIR 300 MG/5 ML CUP PEG/G-TUBE SCH (09:06)
[2020-03-24] MEDS: predniSONE 10 MG TAB PEG/G-TUBE SCH (09:06)
[2020-03-24] MEDS: lisinopriL 5 MG TAB PEG/G-TUBE SCH (09:06)
[2020-03-24] MEDS: GLYCOPYRROLATE 1 MG TAB PO SCH ×2 (09:06→21:35)
[2020-03-24] MEDS: METOPROLOL TARTRATE 25 MG TAB PEG/G-TUBE SCH ×2 (09:06→18:23)
[2020-03-24] MEDS: INSULIN DETEMIR (LEVEMIR) 100 UNIT/ML SYR SQ SCH ×2 (09:07→21:32)
[2020-03-24] MEDS: APIXABAN 2.5 MG TABLET PO SCH ×2 (09:07→21:34)
[2020-03-24] MEDS: CHOLECALCIFEROL 1,000 UNIT TAB PEG/G-TUBE SCH (09:07)
[2020-03-24] MEDS: DOCUSATE ORAL SOLN 100 MG/10 ML CUP PEG/G-TUBE SCH (09:08)
[2020-03-24] MEDS ORDERED: VANCOMYCIN TROUGH DUE 1 EACH MISC MISCELLANE ONE (11:00)
[2020-03-24 11:49] LABS: Glucose,Whole Blood 109 mg/dL (75-99)
[2020-03-24] MEDS: SODIUM CHLORIDE 0.9% 1,000 ML IV SCH (12:32)
--- NOTE | 2020-03-24 13:48 | P.PN ---
Subjective Progress Note Date: 03/24/20 Soledad guaman, is an 79-year-old female well known to my practice who presented to [facility] emergency room with worsening condition with mental status changes and shortness of breath, she was evaluated in emergency room and had evidence of atrial fibrillation with rapid ventricular r esponse, decision was made to proceed with admitting patient to telemetry floor, pulmonary consultation and cardiology consultation were requested. Patient had a prolonged recent admission, she had positive Covid 19 testing, she developed pneumonia and acute respiratory failure and needed prolonged ICU stay with prolonged mechanical ventilation, prior to that patient has a known history of stroke. Patient was seen and examined in the emergency room, she is alert nonverbal in no apparent distress, she is afebrile, heart rate is 117, respiration rate 36 blood pressure 137/109, pulse ox is 99% on 3 L nasal cannula, her white blood count is 7.0 hemoglobin 14.8 and platelet count 191, kidney function and liver function and electrolytes are within normal limits, troponin is slightly elevated at 0.073, lactic acid normal at 1.1, TSH is normal. On 03/21/2020 patient was seen and examined on the medical floor she is alert and responsive she answer questions by yes or no occasionally she does not seem to be in pain there is no fever or chills, PEG tube feeding has been resumed, PICC line has been removed, blood culture positive, patient started on IV vancomycin infectious disease consultation requested. On 03/22/2020 patient was seen and examined on the telemetry floor she is alert and responsive in no apparent distress there is no fever or chills there is evidence of oral thrush, patient is maintained on PEG tube for feeding, cardiology and infectious disease talent development consultant are following. On 03/23/2020 patient was seen and examined on the telemetry floor she is alert, responsive in no apparent distress there is no fever or chills no chest pain or shortness of breath no cough patient is maintained on PEG tube for feeding. Potassium is low at 3.2 we are correcting per protocol. On 03/24/2020 patient was seen and examined on the telemetry floor she is alert responsive in no distress she answers few questions by yes or no, she denies any pain or discomfort there is no shortness of breath no fever or chills, she is still receiving feeding through PEG tube. Objective - Vital Signs Vital signs: Vital Signs Temp 98.0 F 03/24/20 08:00 Pulse 100 03/24/20 08:00 Resp 20 03/24/20 08:00 BP 146/82 03/24/20 08:00 Pulse Ox 99 03/24/20 08:00 Intake & Output 03/23/20 03/24/20 03/24/20 18:59 06:59 18:59 Intake Total 3000 Output Total 600 Balance 3000 -600 Weight 76.5 kg 76.5 kg 76.5 kg Intake: Tube Feeding 3000 Output: Urine 600 Other: Voiding Method Indwelling Catheter Indwelling Catheter Indwelling Catheter - Exam Patient is alert nonverbal in no apparent distress HEENT head normocephalic and atraumatic Neck is supple no JVD no goiter no lymphadenopathy Chest exam reveals a few scattered crackles in both lung ivy no wheezing Cardiac exam reveals regular heart sounds no gallops no murmurs Abdomen is soft nontender no organomegaly with normal bowel sounds, PEG tube site is clear Extremity exam reveals no edema no cyanosis or clubbing - Labs CBC & Chem 7: 03/24/20 06:37 03/24/20 06:37 Labs: Abnormal Lab Results - Last 24 Hours (Table) 03/23/20 03/24/20 03/24/20 Range/Units 14:57 06:15 06:37 MCV 101.2 H (80.0-100.0) fL MCHC 30.8 L (31.0-37.0) g/dL Potassium (3.5-5.1) mmol/L Chloride (98-107) mmol/L Creatinine (0.52-1.04) mg/dL Glucose (74-99) mg/dL POC Glucose (mg/dL) 111 H 72 L (75-99) mg/dL Total Protein (6.3-8.2) g/dL Albumin (3.5-5.0) g/dL 03/24/20 03/24/20 Range/Units 06:37 11:47 MCV (80.0-100.0) fL MCHC (31.0-37.0) g/dL Potassium 3.4 L (3.5-5.1) mmol/L Chloride 108 H (98-107) mmol/L Creatinine 0.37 L (0.52-1.04) mg/dL Glucose 63 L (74-99) mg/dL POC Glucose (mg/dL) 109 H (75-99) mg/dL Total Protein 5.3 L (6.3-8.2) g/dL Albumin 2.8 L (3.5-5.0) g/dL Microbiology - Last 24 Hours (Table) 03/22/20 06:19 Blood Culture - Preliminary Blood No Growth after 48 hours 03/21/20 03:14 Catheter Tip Culture - Preliminary Catheter Tip Enterococcus faecalis VRE Yeast species Assessment and Plan Plan: 1. Atrial fibrillation with rapid ventricular response, patient received metoprolol, and her heart rate improved, cardiology consult was requested 2. Slight elevation in troponin level, cardiology consult requested 3. Bibasilar consolidation likely atelectasis, patient is well known to Dr. Kamara pulmonary consultation requested 4. Recent history of prolonged admission for Covid 19 pneumonia with acute respiratory failure requiring prolonged mechanical ventilation 5. Previous history of stroke patient has PEG tube for feeding, site inspected and is clear 6. Right arm swelling, Doppler done and was negative for DVT 7. Sepsis with positive blood culture, patient started on IV vancomycin infectious disease consultation requested Medication and labs reviewed continue current management Cardiology and pulmonary consultation reviewed Patient is maintained on Eliquis for stroke prevention Will monitor closely prognosis is guarded due to age and multiple underlying con ditions
[2020-03-24 17:24] LABS: Glucose,Whole Blood 115 mg/dL (75-99)
[2020-03-24] MEDS: POTASSIUM CHLORIDE ER 20 MEQ TAB.ER PO SCH ×2 (18:22→18:23)
[2020-03-24] MEDS: PRAVASTATIN SODIUM 20 MG TAB PO SCH (21:34)
[2020-03-24] MEDS: FOLIC ACID 1 MG TAB PEG/G-TUBE SCH (21:34)
--- NOTE | 2020-03-24 22:06 | PN ---
PROGRESS NOTE DATE OF SERVICE: 03/24/2020 REASON FOR FOLLOWUP: Enterococcus faecalis bacteremia. INTERVAL HISTORY: Patient is currently afebrile. The patient is more awake and alert today and did provide some history. Denies any chest pain or cough. No vomiting or diarrhea has been reported. PHYSICAL EXAMINATION: Blood pressure is 136/87 with a pulse of 92, temperature 99.3. She is 100% on 2 L nasal cannula. General description is an elderly female lying in bed in no distress. Respiratory system: Unlabored breathing, clear to auscultation anteriorly. Heart S1, S2. Regular rate and rhythm. Abdomen soft, no tenderness. LABS: Hemoglobin 14.1, white count of 6.4, BUN of 9, creatinine 0.37. Blood culture repeat is negative. DIAGNOSTIC IMPRESSION AND PLAN: Patient with Enterococcus faecalis bacteremia, source possibly IV that has been discontinued. Catheter culture shows VRE sensitive penicillin. Patient is covered with Unasyn, to continue. Plan for two week course of therapy. Continue supportive care. MMODL / IJN: [id number] /
[2020-03-24 23:55] LABS: Glucose,Whole Blood 119 mg/dL (75-99)
[2020-03-25 05:59] LABS: Basophils # (A) 0.1 k/uL (0-0.2); Basophils % (A) 1 %; Eosinophils # (A) 0.3 k/uL (0-0.7); Eosinophils % (A) 4 %; HCT 47.8 % (34.0-46.0); HGB 15.4 gm/dL (11.4-16.0); Hypochromasia Slight; Lymphocytes # (A) 2.3 k/uL (1.0-4.8); Lymphocytes % (A) 30 %; MCH 32.6 pg (25.0-35.0); MCHC 32.2 g/dL (31.0-37.0); MCV 101.2 fL (80.0-100.0); Macrocytosis Slight; Mean Platelet Volume 9.3; Monocytes # (A) 0.5 k/uL (0-1.0); Monocytes % (A) 6 %; Neutrophils # (A) 4.4 k/uL (1.3-7.7); Neutrophils % (A) 58 %; Platelet Count 212 k/uL (150-450); RBC 4.72 m/uL (3.80-5.40); RDW 14.7 % (11.5-15.5); WBC 7.7 k/uL (3.8-10.6)
[2020-03-25 06:06] LABS: Glucose,Whole Blood 149 mg/dL (75-99)
[2020-03-25 06:08] LABS: ALT 20 U/L (4-34); AST 20 U/L (14-36); African American GFR (CKD) >90 (>60 ml/min/1.73 sqM); Alkaline Phosphatase 97 U/L (38-126); Anion Gap 5 mmol/L; Blood Urea Nitrogen 12 mg/dL (7-17); Calcium 10.1 mg/dL (8.4-10.2); Carbon Dioxide 26 mmol/L (22-30); Chloride 106 mmol/L (98-107); Glucose 167 mg/dL (74-99); Non-African American GFR(CKD) >90 (>60 ml/min/1.73 sqM); Sodium 137 mmol/L (137-145); Total Bilirubin 0.8 mg/dL (0.2-1.3); Total Protein 5.7 g/dL (6.3-8.2)
[2020-03-25] MEDS: INSULIN ASPART (NovoLOG) 100 UNIT/ML VIAL SQ SCH ×4 (06:30→23:52)
[2020-03-25] MEDS: AMPICILLIN-SULBACTAM 3 GM in SODIUM CHLORIDE 0.9% 100 ML IVPB SCH ×4 (06:31→23:52)
[2020-03-25 08:50] LABS: Glucose,Whole Blood 172 mg/dL (75-99)
[2020-03-25] MEDS: INSULIN DETEMIR (LEVEMIR) 100 UNIT/ML SYR SQ SCH ×2 (08:52→20:11)
[2020-03-25] MEDS: predniSONE 10 MG TAB PEG/G-TUBE SCH (08:53)
[2020-03-25] MEDS: APIXABAN 2.5 MG TABLET PO SCH ×2 (08:53→20:12)
[2020-03-25] MEDS: CHOLECALCIFEROL 1,000 UNIT TAB PEG/G-TUBE SCH (08:53)
[2020-03-25] MEDS: lisinopriL 5 MG TAB PEG/G-TUBE SCH (08:53)
[2020-03-25] MEDS: METOPROLOL TARTRATE 25 MG TAB PEG/G-TUBE SCH ×2 (08:53→15:32)
[2020-03-25] MEDS: DOCUSATE ORAL SOLN 100 MG/10 ML CUP PEG/G-TUBE SCH (08:55)
[2020-03-25] MEDS: FERROUS SULFATE ORAL ELIXIR 300 MG/5 ML CUP PEG/G-TUBE SCH (08:56)
[2020-03-25] MEDS: FLUCONAZOLE ORAL SUSP 1,400 MG/35 ML BOTTLE PEG/G-TUBE SCH (08:58)
[2020-03-25] MEDS: GLYCOPYRROLATE 1 MG TAB PO SCH ×2 (08:59→20:12)
--- NOTE | 2020-03-25 11:14 | P.PN ---
Subjective Progress Note Date: 03/25/20 Principal diagnosis: Altered mental status likely related to multifactorial process, likely related to sepsis due bacteremia due to group D enterococcus and to urinary tract infect ion may very well be related to enterococcus patient does have the nitrate and leukocyte esterase with many bacteria, also blood culture came back positive for enterococcus, as well as related to baseline condition of stroke and hemiparesis A. fib RVR related to sepsis with baseline A. fib Bilateral basal atelectasis due to prior pneumonia History of recent covid-19 pneumonia and respiratory failure requiring prolonged ventilator support 03/25/2020, patient seen and evaluated examined awake, intermittently confused, occasional cough is present no evidence of shortness of breath, on 2 L oxygen saturation is ranging from 99-92% she remains afebrile, catheter tip was positive for enterococcus as well as the blood, ID service is adjusting antibiotics chest x-ray finding as dictated above 03/23/2020, patient seen eval examined during the rounds reviewed medications reviewed, chest x-ray from this morning reviewed as well patient has bilateral atelectasis along with small bilateral pleural effusion, we'll give another dose of Lasix today, and titrate oxygen down to baseline This is a 79-year-old female with history of recent respiratory failure related to covert 19 pneumonia patient was intubated for extended period of time due to failure to wean patient was transferred to, patient transferred to senior living where she was noted to have increased swelling and increased lethargy patient was brought to emergency department for further evaluation patient was noted to be in A. fib RVR also on anticoagulation patient does have a PICC line in left upper extremity, chest x-ray showed left base underpenetrated with subsegmental atelectasis not much different compared to x-ray performed in January, CT of the head revealed chronic atrophic changes and small vessel changes no acute processes identified, venous Doppler of right upper extremity negative for DVT, due to prior stroke patient is mostly nonverbal and has hemiparesis also have baseline diabetes dyslipidemia and end-stage lung disease hypertension and dementia Objective - Vital Signs Vital signs: Vital Signs Temp 98.6 F 03/25/20 08:43 Pulse 78 03/25/20 08:43 Resp 16 03/25/20 08:45 BP 166/77 03/25/20 08:43 Pulse Ox 92 L 03/25/20 08:43 Intake & Output 03/24/20 03/25/20 03/25/20 18:59 06:59 18:59 Intake Total 1360 360 180 Output Total 800 Balance 1360 -440 180 Weight 76.5 kg 74 kg Intake: Tube Feeding 1360 360 180 Output: Urine 800 Other: Voiding Method Indwelling Catheter Indwelling Catheter Indwelling Catheter - Exam - Constitutional General appearance: cooperative, disheveled, arousable to follow simple commands - EENT ENT: hard of hearing Ears: bilateral: normal - Neck Carotids: bilateral: upstroke normal - Respiratory Respiratory: bilateral: diminished - Cardiovascular Rhythm: irregularly irregular Heart sounds: normal: S1, S2 - Gastrointestinal General gastrointestinal: decreased bowel sounds - Musculoskeletal Musculoskeletal: generalized weakness - Labs CBC & Chem 7: 03/25/20 05:37 03/25/20 05:37 Labs: Abnormal Lab Results - Last 24 Hours (Table) 03/24/20 03/24/20 03/24/20 Range/Units 11:47 17:18 23:53 Hct (34.0-46.0) % MCV (80.0-100.0) fL Creatinine (0.52-1.04) mg/dL Glucose (74-99) mg/dL POC Glucose (mg/dL) 109 H 115 H 119 H (75-99) mg/dL Total Protein (6.3-8.2) g/dL Albumin (3.5-5.0) g/dL 03/25/20 03/25/20 03/25/20 Range/Units 05:37 05:37 06:04 Hct 47.8 H (34.0-46.0) % MCV 101.2 H (80.0-100.0) fL Creatinine 0.39 L (0.52-1.04) mg/dL Glucose 167 H (74-99) mg/dL POC Glucose (mg/dL) 149 H (75-99) mg/dL Total Protein 5.7 L (6.3-8.2) g/dL Albumin 3.0 L (3.5-5.0) g/dL 03/25/20 Range/Units 08:46 Hct (34.0-46.0) % MCV (80.0-100.0) fL Creatinine (0.52-1.04) mg/dL Glucose (74-99) mg/dL POC Glucose (mg/dL) 172 H (75-99) mg/dL Total Protein (6.3-8.2) g/dL Albumin (3.5-5.0) g/dL Microbiology - Last 24 Hours (Table) 03/22/20 06:19 Blood Culture - Preliminary Blood No Growth after 72 hours 03/21/20 03:14 Catheter Tip Culture - Final Catheter Tip Enterococcus faecalis VRE Deloris sp,not albicans/galbr Assessment and Plan Assessment: Altered mental status likely related to multifactorial process, likely related to sepsis due bacteremia due to group D enterococcus and to urinary tract infe ction may very well be related to enterococcus as well as baseline stroke, appears to be coming back to baseline Sepsis due to enterococcus and bacteremia blood culture came back positive for enterococcus Acute on chronic hypoxic respiratory failure Fluid overload and pleural effusion A. fib RVR related to sepsis with baseline A. fib Bilateral basal atelectasis due to prior pneumonia History of recent cold with 19 pneumonia and respiratory failure requiring prolonged ventilator support Plan: Continue supportive care Supplemental oxygen, can be maintained on 2 L nasal cannula Antibiotics as per ID Deep breathing exercises incentive spirometry Further recommendations pending plan of care as per clinical response of the patient Time with Patient: Greater than 30
[2020-03-25 12:06] LABS: Glucose,Whole Blood 282 mg/dL (75-99)
--- NOTE | 2020-03-25 12:20 | P.PN ---
Subjective Progress Note Date: 03/25/20 Soledad guaman, is an 79-year-old female well known to my practice who presented to [facility] emergency room with worsening condition with mental status changes and shortness of breath, she was evaluated in emergency room and had evidence of atrial fibrillation with rapid ventricular r esponse, decision was made to proceed with admitting patient to telemetry floor, pulmonary consultation and cardiology consultation were requested. Patient had a prolonged recent admission, she had positive Covid 19 testing, she developed pneumonia and acute respiratory failure and needed prolonged ICU stay with prolonged mechanical ventilation, prior to that patient has a known history of stroke. Patient was seen and examined in the emergency room, she is alert nonverbal in no apparent distress, she is afebrile, heart rate is 117, respiration rate 36 blood pressure 137/109, pulse ox is 99% on 3 L nasal cannula, her white blood count is 7.0 hemoglobin 14.8 and platelet count 191, kidney function and liver function and electrolytes are within normal limits, troponin is slightly elevated at 0.073, lactic acid normal at 1.1, TSH is normal. On 03/21/2020 patient was seen and examined on the medical floor she is alert and responsive she answer questions by yes or no occasionally she does not seem to be in pain there is no fever or chills, PEG tube feeding has been resumed, PICC line has been removed, blood culture positive, patient started on IV vancomycin infectious disease consultation requested. On 03/22/2020 patient was seen and examined on the telemetry floor she is alert and responsive in no apparent distress there is no fever or chills there is evidence of oral thrush, patient is maintained on PEG tube for feeding, cardiology and infectious disease workforce consultant are following. On 03/23/2020 patient was seen and examined on the telemetry floor she is alert, responsive in no apparent distress there is no fever or chills no chest pain or shortness of breath no cough patient is maintained on PEG tube for feeding. Potassium is low at 3.2 we are correcting per protocol. On 03/24/2020 patient was seen and examined on the telemetry floor she is alert responsive in no distress she answers few questions by yes or no, she denies any pain or discomfort there is no shortness of breath no fever or chills, she is still receiving feeding through PEG tube. On 03/25/2020 patient was seen and examined on the medical floor she is alert and responsive, in no distress, she is receiving feeding via PEG tube, glucose level is elevated today, otherwise no complaints. Objective - Vital Signs Vital signs: Vital Signs Temp 98.6 F 03/25/20 08:43 Pulse 78 03/25/20 08:43 Resp 16 03/25/20 08:45 BP 166/77 03/25/20 08:43 Pulse Ox 92 L 03/25/20 08:43 Intake & Output 03/24/20 03/25/20 03/25/20 18:59 06:59 18:59 Intake Total 1360 360 180 Output Total 800 Balance 1360 -440 180 Weight 76.5 kg 74 kg Intake: Tube Feeding 1360 360 180 Output: Urine 800 Other: Voiding Method Indwelling Catheter Indwelling Catheter Indwelling Catheter - Exam Patient is alert nonverbal in no apparent distress HEENT head normocephalic and atraumatic Neck is supple no JVD no goiter no lymphadenopathy Chest exam reveals a few scattered crackles in both lung ivy no wheezing Cardiac exam reveals regular heart sounds no gallops no murmurs Abdomen is soft nontender no organomegaly with normal bowel sounds, PEG tube site is clear Extremity exam reveals no edema no cyanosis or clubbing - Labs CBC & Chem 7: 03/25/20 05:37 03/25/20 05:37 Labs: Abnormal Lab Results - Last 24 Hours (Table) 03/24/20 03/24/20 03/24/20 Range/Units 11:47 17:18 23:53 Hct (34.0-46.0) % MCV (80.0-100.0) fL Creatinine (0.52-1.04) mg/dL Glucose (74-99) mg/dL POC Glucose (mg/dL) 109 H 115 H 119 H (75-99) mg/dL Total Protein (6.3-8.2) g/dL Albumin (3.5-5.0) g/dL 03/25/20 03/25/20 03/25/20 Range/Units 05:37 05:37 06:04 Hct 47.8 H (34.0-46.0) % MCV 101.2 H (80.0-100.0) fL Creatinine 0.39 L (0.52-1.04) mg/dL Glucose 167 H (74-99) mg/dL POC Glucose (mg/dL) 149 H (75-99) mg/dL Total Protein 5.7 L (6.3-8.2) g/dL Albumin 3.0 L (3.5-5.0) g/dL 03/25/20 Range/Units 08:46 Hct (34.0-46.0) % MCV (80.0-100.0) fL Creatinine (0.52-1.04) mg/dL Glucose (74-99) mg/dL POC Glucose (mg/dL) 172 H (75-99) mg/dL Total Protein (6.3-8.2) g/dL Albumin (3.5-5.0) g/dL Microbiology - Last 24 Hours (Table) 03/22/20 06:19 Blood Culture - Preliminary Blood No Growth after 72 hours 03/21/20 03:14 Catheter Tip Culture - Final Catheter Tip Enterococcus faecalis VRE Deloris sp,not albicans/galbr Assessment and Plan Plan: 1. Atrial fibrillation with rapid ventricular response, patient received metoprolol, and her heart rate improved, cardiology consult was requested 2. Slight elevation in troponin level, cardiology consult requested 3. Bibasilar consolidation likely atelectasis, patient is well known to Dr. Kamara pulmonary consultation requested 4. Recent history of prolonged admission for Covid 19 pneumonia with acute respiratory failure requiring prolonged mechanical ventilation 5. Previous history of stroke patient has PEG tube for feeding, site inspected and is clear 6. Right arm swelling, Doppler done and was negative for DVT 7. Sepsis with positive blood culture, patient started on IV vancomycin infectious disease consultation requested Medication and labs reviewed continue current management Cardiology and pulmonary consultation reviewed Patient is maintained on Eliquis for stroke prevention Will monitor closely prognosis is guarded due to age and multiple underlying conditions
[2020-03-25] MEDS: SODIUM CHLORIDE 0.9% 1,000 ML IV SCH (13:10)
[2020-03-25] MEDS ORDERED: hydrALAZINE HCL 20 MG/ML 1 ML VIAL IVP PRN (15:26)
[2020-03-25 17:02] LABS: Glucose,Whole Blood 219 mg/dL (75-99)
[2020-03-25] MEDS: FOLIC ACID 1 MG TAB PEG/G-TUBE SCH (20:12)
[2020-03-25] MEDS: PRAVASTATIN SODIUM 20 MG TAB PO SCH (20:12)
[2020-03-25 20:41] LABS: Glucose,Whole Blood 176 mg/dL (75-99)
[2020-03-26 00:03] LABS: Glucose,Whole Blood 129 mg/dL (75-99)
[2020-03-26 05:51] LABS: Glucose,Whole Blood 91 mg/dL (75-99)
[2020-03-26] MEDS: AMPICILLIN-SULBACTAM 3 GM in SODIUM CHLORIDE 0.9% 100 ML IVPB SCH ×4 (05:53→23:26)
[2020-03-26] MEDS: INSULIN ASPART (NovoLOG) 100 UNIT/ML VIAL SQ SCH ×4 (05:53→23:25)
--- NOTE | 2020-03-26 06:37 | PN ---
PROGRESS NOTE DATE OF SERVICE: 03/25/2020 REASON FOR FOLLOWUP: Enterococcus faecalis bacteremia secondary to IV site infection. INTERVAL HISTORY: Patient is currently afebrile. Patient is breathing comfortably. The patient hemodynamically is stable, slightly more awake and alert today and denies any chest pain or cough by shaking her head. No vomiting or diarrhea reported by nursing staff. PHYSICAL EXAMINATION: Blood pressure 125/73 with a pulse of 77, temperature is 97.7, she is 96% on room air. Description is an elderly female lying in bed in no distress. Respiratory system: Unlabored breathing, clear to auscultation anteriorly. Heart S1, S2. Regular rate and rhythm. Abdomen soft and nontender. LABS: Hemoglobin is 15.4, white count 7.7. Blood cultures from 03/22 have been negative. DIAGNOSTIC IMPRESSION AND PLAN: Patient with Enterococcus faecalis bacteremia source likely IV site that has been discontinued. Follow-up blood culture has been negative. Patient to continue ( ) and continue with Unasyn for another 10 days to finish a 2-week course of therapy. Monitoring of the blood cultures. Continue supportive care. MMODL / IJN: [id number] /
[2020-03-26 07:04] LABS: Basophils # (A) 0.1 k/uL (0-0.2); Basophils % (A) 1 %; Eosinophils # (A) 0.2 k/uL (0-0.7); Eosinophils % (A) 2 %; HCT 47.4 % (34.0-46.0); HGB 15.1 gm/dL (11.4-16.0); Hypochromasia Slight; Lymphocytes # (A) 1.8 k/uL (1.0-4.8); Lymphocytes % (A) 26 %; MCH 32.2 pg (25.0-35.0); MCHC 31.8 g/dL (31.0-37.0); MCV 101.2 fL (80.0-100.0); Macrocytosis Slight; Monocytes # (A) 0.5 k/uL (0-1.0); Monocytes % (A) 8 %; Neutrophils # (A) 4.3 k/uL (1.3-7.7); Neutrophils % (A) 62 %; Platelet Count 215 k/uL (150-450); RBC 4.68 m/uL (3.80-5.40); RDW 14.7 % (11.5-15.5)
[2020-03-26 07:18] LABS: ALT 16 U/L (4-34); AST 17 U/L (14-36); African American GFR (CKD) >90 (>60 ml/min/1.73 sqM); Albumin 2.9 g/dL (3.5-5.0); Alkaline Phosphatase 85 U/L (38-126); Anion Gap 7 mmol/L; Blood Urea Nitrogen 11 mg/dL (7-17); Calcium 9.9 mg/dL (8.4-10.2); Carbon Dioxide 25 mmol/L (22-30); Chloride 108 mmol/L (98-107); Glucose 81 mg/dL (74-99); Non-African American GFR(CKD) >90 (>60 ml/min/1.73 sqM); Potassium 3.5 mmol/L (3.5-5.1); Sodium 140 mmol/L (137-145); Total Bilirubin 0.6 mg/dL (0.2-1.3); Total Protein 5.4 g/dL (6.3-8.2)
--- NOTE | 2020-03-26 10:57 | P.PN ---
Subjective Progress Note Date: 03/26/20 Principal diagnosis: Altered mental status likely related to multifactorial process, likely related to sepsis due bacteremia due to group D enterococcus and to urinary tract infect ion may very well be related to enterococcus patient does have the nitrate and leukocyte esterase with many bacteria, also blood culture came back positive for enterococcus, as well as related to baseline condition of stroke and hemiparesis A. fib RVR related to sepsis with baseline A. fib Bilateral basal atelectasis due to prior pneumonia History of recent covid-19 pneumonia and respiratory failure requiring prolonged ventilator support 03/26/2020, patient seen eval reexamined during the rounds labs reviewed medications reviewed overall no significant change has been seen, patient remains afebrile with stable hemodynamics oxygen saturation is 97% on room air, mental status remains unchanged, at times patient opens eyes follow simple commands other time she continued to sleep, repeat blood cultures have been negative 03/25/2020, patient seen and evaluated examined awake, intermittently confused, occasional cough is present no evidence of shortness of breath, on 2 L oxygen saturation is ranging from 99-92% she remains afebrile, catheter tip was positive for enterococcus as well as the blood, ID service is adjusting antibiotics chest x-ray finding as dictated above 03/23/2020, patient seen eval examined during the rounds reviewed medications reviewed, chest x-ray from this morning reviewed as well patient has bilateral atelectasis along with small bilateral pleural effusion, we'll give another dose of Lasix today, and titrate oxygen down to baseline This is a 79-year-old female with history of recent respiratory failure related to covert 19 pneumonia patient was intubated for extended period of time due to failure to wean patient was transferred to, patient transferred to longterm where she was noted to have increased swelling and increased lethargy patient w as brought to emergency department for further evaluation patient was noted to be in A. fib RVR also on anticoagulation patient does have a PICC line in left upper extremity, chest x-ray showed left base underpenetrated with subsegmental atelectasis not much different compared to x-ray performed in January, CT of the head revealed chronic atrophic changes and small vessel changes no acute processes identified, venous Doppler of right upper extremity negative for DVT, due to prior stroke patient is mostly nonverbal and has hemiparesis also have baseline diabetes dyslipidemia and end-stage lung disease hypertension and dementia Objective - Vital Signs Vital signs: Vital Signs Temp 97.8 F 03/26/20 04:00 Pulse 86 03/26/20 04:00 Resp 18 03/26/20 04:00 BP 127/69 03/26/20 04:00 Pulse Ox 97 03/26/20 04:00 Intake & Output 03/25/20 03/26/20 03/26/20 18:59 06:59 18:59 Intake Total 560 50 Output Total 500 800 Balance 60 -750 Weight 76 kg Intake: IV 20 Invasive Line 3 20 Tube Feeding 540 50 Output: Urine 500 800 Other: Voiding Method Indwelling Catheter Indwelling Catheter # Bowel Movements 1 - Exam - Constitutional General appearance: cooperative, disheveled, arousable to follow simple commands - EENT ENT: hard of hearing Ears: bilateral: normal - Neck Carotids: bilateral: upstroke normal - Respiratory Respiratory: bilateral: diminished - Cardiovascular Rhythm: irregularly irregular Heart sounds: normal: S1, S2 - Gastrointestinal General gastrointestinal: decreased bowel sounds - Musculoskeletal Musculoskeletal: generalized weakness - Labs CBC & Chem 7: 03/26/20 05:33 03/26/20 05:33 Labs: Abnormal Lab Results - Last 24 Hours (Table) 03/25/20 03/25/20 03/25/20 Range/Units 12:05 17:01 20:39 Hct (34.0-46.0) % MCV (80.0-100.0) fL Chloride (98-107) mmol/L Creatinine (0.52-1.04) mg/dL POC Glucose (mg/dL) 282 H 219 H 176 H (75-99) mg/dL Total Protein (6.3-8.2) g/dL Albumin (3.5-5.0) g/dL 03/26/20 03/26/20 03/26/20 Range/Units 00:01 05:33 05:33 Hct 47.4 H (34.0-46.0) % MCV 101.2 H (80.0-100.0) fL Chloride 108 H (98-107) mmol/L Creatinine 0.37 L (0.52-1.04) mg/dL POC Glucose (mg/dL) 129 H (75-99) mg/dL Total Protein 5.4 L (6.3-8.2) g/dL Albumin 2.9 L (3.5-5.0) g/dL Microbiology - Last 24 Hours (Table) 03/22/20 06:19 Blood Culture - Preliminary Blood No Growth after 96 hours 03/21/20 03:14 Catheter Tip Culture - Final Catheter Tip Enterococcus faecalis VRE Deloris sp,not albicans/galbr Assessment and Plan Assessment: Altered mental status likely related to multifactorial process, stable and improved likely related to sepsis due bacteremia due to group D enterococcus and to urinary tract infection may very well be related to enterococcus as well as baseline stroke, appears to be coming back to baseline Sepsis due to enterococcus and bacteremia blood culture came back positive for enterococcus Acute on chronic hypoxic respiratory failure Fluid overload and pleural effusion A. fib RVR related to sepsis with baseline A. fib Bilateral basal atelectasis due to prior pneumonia History of recent cold with 19 pneumonia and respiratory failure requiring prolonged ventilator support Plan: Continue supportive care Supplemental oxygen, can be maintained on 2 L nasal cannula, monitor oxygen saturation at room air if more than 90-94% can DC oxygen Antibiotics as per ID Deep breathing exercises incentive spirometry Further recommendations pending plan of care as per clinical response of the patient Time with Patient: Greater than 30
[2020-03-26] MEDS: METOPROLOL TARTRATE 25 MG TAB PEG/G-TUBE SCH ×2 (11:51→17:25)
[2020-03-26] MEDS: lisinopriL 5 MG TAB PEG/G-TUBE SCH (11:51)
[2020-03-26] MEDS: CHOLECALCIFEROL 1,000 UNIT TAB PEG/G-TUBE SCH (11:51)
[2020-03-26] MEDS: APIXABAN 2.5 MG TABLET PO SCH ×2 (11:52→20:24)
[2020-03-26] MEDS: predniSONE 10 MG TAB PEG/G-TUBE SCH (11:52)
[2020-03-26 11:53] LABS: Glucose,Whole Blood 94 mg/dL (75-99)
[2020-03-26] MEDS: INSULIN DETEMIR (LEVEMIR) 100 UNIT/ML SYR SQ SCH ×2 (11:54→20:55)
[2020-03-26] MEDS: DOCUSATE ORAL SOLN 100 MG/10 ML CUP PEG/G-TUBE SCH (11:55)
[2020-03-26] MEDS: GLYCOPYRROLATE 1 MG TAB PO SCH ×2 (11:55→20:24)
[2020-03-26] MEDS: FLUCONAZOLE ORAL SUSP 1,400 MG/35 ML BOTTLE PEG/G-TUBE SCH (11:55)
[2020-03-26] MEDS: FERROUS SULFATE ORAL ELIXIR 300 MG/5 ML CUP PEG/G-TUBE SCH (11:55)
--- NOTE | 2020-03-26 14:04 | PN ---
PROGRESS NOTE DATE OF SERVICE: 03/26/2020 REASON FOR FOLLOWUP: Enterococcus bacteremia secondary to IV site infection. INTERVAL HISTORY: Patient is currently afebrile, patient is breathing comfortably. Slightly more awake, alert, currently on room air. No chest pain or cough. No abdominal pain. No diarrhea has been reported. PHYSICAL EXAMINATION: Blood pressure 127/69 with a pulse of 86, temperature 97.8. She is 97% on room air. General description is an elderly female lying in bed, in no distress. RESPIRATORY SYSTEM: Unlabored breathing, clear to auscultation anteriorly. HEART: S1, S2. Regular rate and rhythm. ABDOMEN: Soft, no tenderness. LABS: Hemoglobin 15.1, white count 7.0. BUN of 11, creatinine 0.27. Blood culture repeat has been negative. DIAGNOSTIC IMPRESSION AND PLAN: Patient with Enterococcus bacteremia source likely IV that has been discontinued. Follow up blood culture negative. She will continue on Unasyn, though the dose can cut back to 3 g q.8 hours for another 10 days to finish a course of therapy. Midline has been ordered. MMODL / IJN: [id number] /
[2020-03-26 16:40] LABS: Glucose,Whole Blood 120 mg/dL (75-99)
[2020-03-26] MEDS: SODIUM CHLORIDE 0.9% 1,000 ML IV SCH (17:26)
--- NOTE | 2020-03-26 18:33 | P.PN ---
Subjective Progress Note Date: 03/26/20 oSledad guaman, is an 79-year-old female well known to my practice who presented to [facility] emergency room with worsening condition with mental status changes and shortness of breath, she was evaluated in emergency room and had evidence of atrial fibrillation with rapid ventricular r esponse, decision was made to proceed with admitting patient to telemetry floor, pulmonary consultation and cardiology consultation were requested. Patient had a prolonged recent admission, she had positive Covid 19 testing, she developed pneumonia and acute respiratory failure and needed prolonged ICU stay with prolonged mechanical ventilation, prior to that patient has a known history of stroke. Patient was seen and examined in the emergency room, she is alert nonverbal in no apparent distress, she is afebrile, heart rate is 117, respiration rate 36 blood pressure 137/109, pulse ox is 99% on 3 L nasal cannula, her white blood count is 7.0 hemoglobin 14.8 and platelet count 191, kidney function and liver function and electrolytes are within normal limits, troponin is slightly elevated at 0.073, lactic acid normal at 1.1, TSH is normal. On 03/21/2020 patient was seen and examined on the medical floor she is alert and responsive she answer questions by yes or no occasionally she does not seem to be in pain there is no fever or chills, PEG tube feeding has been resumed, PICC line has been removed, blood culture positive, patient started on IV vancomycin infectious disease consultation requested. On 03/22/2020 patient was seen and examined on the telemetry floor she is alert and responsive in no apparent distress there is no fever or chills there is evidence of oral thrush, patient is maintained on PEG tube for feeding, cardiology and infectious disease weight loss consultant are following. On 03/23/2020 patient was seen and examined on the telemetry floor she is alert, responsive in no apparent distress there is no fever or chills no chest pain or shortness of breath no cough patient is maintained on PEG tube for feeding. Potassium is low at 3.2 we are correcting per protocol. On 03/24/2020 patient was seen and examined on the telemetry floor she is alert responsive in no distress she answers few questions by yes or no, she denies any pain or discomfort there is no shortness of breath no fever or chills, she is still receiving feeding through PEG tube. On 03/25/2020 patient was seen and examined on the medical floor she is alert and responsive, in no distress, she is receiving feeding via PEG tube, glucose level is elevated today, otherwise no complaints. on 03/26/2020 patient was seen and examined on the medical floor she is answering a few questions by yes or no she is denying any pain she states she is feeling okay she is receiving tube feeding via PEG tube Objective - Vital Signs Vital signs: Vital Signs Temp 97.9 F 03/26/20 08:00 Pulse 86 03/26/20 15:11 Resp 18 03/26/20 15:11 BP 124/80 03/26/20 15:11 Pulse Ox 95 03/26/20 15:11 Intake & Output 03/25/20 03/26/20 03/26/20 18:59 06:59 18:59 Intake Total 560 50 150 Output Total 500 800 Balance 60 -750 150 Weight 76 kg 76 kg Intake: IV 20 Invasive Line 3 20 Tube Feeding 540 50 150 Output: Urine 500 800 Other: Voiding Method Indwelling Catheter Indwelling Catheter Indwelling Catheter # Bowel Movements 1 - Exam Patient is alert nonverbal in no apparent distress HEENT head normocephalic and atraumatic Neck is supple no JVD no goiter no lymphadenopathy Chest exam reveals a few scattered crackles in both lung ivy no wheezing Cardiac exam reveals regular heart sounds no gallops no murmurs Abdomen is soft nontender no organomegaly with normal bowel sounds, PEG tube site is clear Extremity exam reveals no edema no cyanosis or clubbing - Labs CBC & Chem 7: 03/26/20 05:33 03/26/20 05:33 Labs: Abnormal Lab Results - Last 24 Hours (Table) 03/25/20 03/26/20 03/26/20 Range/Units 20:39 00:01 05:33 Hct 47.4 H (34.0-46.0) % MCV 101.2 H (80.0-100.0) fL Chloride (98-107) mmol/L Creatinine (0.52-1.04) mg/dL POC Glucose (mg/dL) 176 H 129 H (75-99) mg/dL Total Protein (6.3-8.2) g/dL Albumin (3.5-5.0) g/dL 03/26/20 03/26/20 Range/Units 05:33 16:39 Hct (34.0-46.0) % MCV (80.0-100.0) fL Chloride 108 H (98-107) mmol/L Creatinine 0.37 L (0.52-1.04) mg/dL POC Glucose (mg/dL) 120 H (75-99) mg/dL Total Protein 5.4 L (6.3-8.2) g/dL Albumin 2.9 L (3.5-5.0) g/dL Microbiology - Last 24 Hours (Table) 03/21/20 03:14 Catheter Tip Culture - Final Catheter Tip Enterococcus faecalis VRE Deloris sp,not albicans/galbr 03/22/20 06:19 Blood Culture - Preliminary Blood No Growth after 96 hours Assessment and Plan Plan: 1. Atrial fibrillation with rapid ventricular response, patient received metoprolol, and her heart rate improved, cardiology consult was requested 2. Slight elevation in troponin level, cardiology consult requested 3. Bibasilar consolidation likely atelectasis, patient is well known to Dr. Kamara pulmonary consultation requested 4. Recent history of prolonged admission for Covid 19 pneumonia with acute respiratory failure requiring prolonged mechanical ventilation 5. Previous history of stroke patient has PEG tube for feeding, site inspected and is clear 6. Right arm swelling, Doppler done and was negative for DVT 7. Sepsis with positive blood culture, patient started on IV vancomycin infectious disease consultation requested Medication and labs reviewed continue current management Cardiology and pulmonary consultation reviewed Patient is maintained on Eliquis for stroke prevention Will monitor closely prognosis is guarded due to age and multiple underlying conditions
[2020-03-26] MEDS: FOLIC ACID 1 MG TAB PEG/G-TUBE SCH (20:24)
[2020-03-26] MEDS: PRAVASTATIN SODIUM 20 MG TAB PO SCH (20:24)
[2020-03-26 20:40] LABS: Glucose,Whole Blood 102 mg/dL (75-99)
[2020-03-26 23:26] LABS: Glucose,Whole Blood 94 mg/dL (75-99)
[2020-03-27] MEDS: AMPICILLIN-SULBACTAM 3 GM in SODIUM CHLORIDE 0.9% 100 ML IVPB SCH ×4 (06:03→23:22)
[2020-03-27] MEDS: INSULIN ASPART (NovoLOG) 100 UNIT/ML VIAL SQ SCH ×3 (06:06→18:11)
[2020-03-27 06:07] LABS: Glucose,Whole Blood 67 mg/dL (75-99)
[2020-03-27] MEDS ORDERED: DEXTROSE 50% SYRINGE 50 ML IVP ONE (06:10)
[2020-03-27 06:29] LABS: Glucose,Whole Blood 144 mg/dL (75-99)
[2020-03-27] MEDS: FERROUS SULFATE ORAL ELIXIR 300 MG/5 ML CUP PEG/G-TUBE SCH (08:10)
[2020-03-27] MEDS: predniSONE 10 MG TAB PEG/G-TUBE SCH (08:11)
[2020-03-27] MEDS: CHOLECALCIFEROL 1,000 UNIT TAB PEG/G-TUBE SCH (08:11)
[2020-03-27] MEDS: METOPROLOL TARTRATE 25 MG TAB PEG/G-TUBE SCH ×2 (08:11→16:10)
[2020-03-27] MEDS: lisinopriL 5 MG TAB PEG/G-TUBE SCH (08:11)
[2020-03-27] MEDS: APIXABAN 2.5 MG TABLET PO SCH ×2 (08:11→20:04)
[2020-03-27] MEDS: GLYCOPYRROLATE 1 MG TAB PO SCH ×2 (08:11→20:04)
[2020-03-27] MEDS: DOCUSATE ORAL SOLN 100 MG/10 ML CUP PEG/G-TUBE SCH (08:12)
[2020-03-27] MEDS: FLUCONAZOLE ORAL SUSP 1,400 MG/35 ML BOTTLE PEG/G-TUBE SCH (09:44)
--- NOTE | 2020-03-27 10:40 | P.PN ---
Subjective Progress Note Date: 03/27/20 Principal diagnosis: Altered mental status likely related to multifactorial process, likely related to sepsis due bacteremia due to group D enterococcus and to urinary tract infect ion may very well be related to enterococcus patient does have the nitrate and leukocyte esterase with many bacteria, also blood culture came back positive for enterococcus, as well as related to baseline condition of stroke and hemiparesis A. fib RVR related to sepsis with baseline A. fib Bilateral basal atelectasis due to prior pneumonia History of recent covid-19 pneumonia and respiratory failure requiring prolonged ventilator support 03/27/2020, patient seen eval reexamined during the rounds labs reviewed medications reviewed breathing comfortably mental status continued to be stable waxes and wane, patient remains on 2 L of oxygen and saturating well, patient is to go undergo PICC line/midline and a long-term outpatient antibiotic as an extended care facility 03/26/2020, patient seen eval reexamined during the rounds labs reviewed medications reviewed overall no significant change has been seen, patient remains afebrile with stable hemodynamics oxygen saturation is 97% on room air, mental status remains unchanged, at times patient opens eyes follow simple commands other time she continued to sleep, repeat blood cultures have been negative 03/25/2020, patient seen and evaluated examined awake, intermittently confused, occasional cough is present no evidence of shortness of breath, on 2 L oxygen saturation is ranging from 99-92% she remains afebrile, catheter tip was p ositive for enterococcus as well as the blood, ID service is adjusting antibiotics chest x-ray finding as dictated above 03/23/2020, patient seen eval examined during the rounds reviewed medications reviewed, chest x-ray from this morning reviewed as well patient has bilateral atelectasis along with small bilateral pleural effusion, we'll give another dose of Lasix today, and titrate oxygen down to baseline This is a 79-year-old female with history of recent respiratory failure related to covert 19 pneumonia patient was intubated for extended period of time due to failure to wean patient was transferred to, patient transferred to intermediate where she was noted to have increased swelling and increased lethargy patient was brought to emergency department for further evaluation patient was noted to be in A. fib RVR also on anticoagulation patient does have a PICC line in left upper extremity, chest x-ray showed left base underpenetrated with subsegmental atelectasis not much different compared to x-ray performed in January, CT of the head revealed chronic atrophic changes and small vessel changes no acute processes identified, venous Doppler of right upper extremity negative for DVT, due to prior stroke patient is mostly nonverbal and has hemiparesis also have baseline diabetes dyslipidemia and end-stage lung disease hypertension and dementia Objective - Vital Signs Vital signs: Vital Signs Temp 98.8 F 03/27/20 04:00 Pulse 92 03/27/20 08:00 Resp 18 03/27/20 08:00 BP 159/86 03/27/20 08:00 Pulse Ox 91 L 03/27/20 08:00 Intake & Output 03/26/20 03/27/20 03/27/20 18:59 06:59 18:59 Intake Total 150 215 Output Total 300 700 Balance -150 -485 Weight 76 kg 74 kg Intake: Tube Feeding 150 215 Output: Urine 300 700 Other: Voiding Method Indwelling Catheter Indwelling Catheter Indwelling Catheter - Exam - Constitutional General appearance: cooperative, disheveled, arousable to follow simple commands - EENT ENT: hard of hearing Ears: bilateral: normal - Neck Carotids: bilateral: upstroke normal - Respiratory Respiratory: bilateral: diminished - Cardiovascular Rhythm: irregularly irregular Heart sounds: normal: S1, S2 - Gastrointestinal General gastrointestinal: decreased bowel sounds - Musculoskeletal Musculoskeletal: generalized weakness - Labs CBC & Chem 7: 03/26/20 05:33 03/26/20 05:33 Labs: Abnormal Lab Results - Last 24 Hours (Table) 03/26/20 03/26/20 03/27/20 Range/Units 16:39 20:38 06:05 POC Glucose (mg/dL) 120 H 102 H 67 L (75-99) mg/dL 03/27/20 Range/Units 06:26 POC Glucose (mg/dL) 144 H (75-99) mg/dL Microbiology - Last 24 Hours (Table) 03/22/20 06:19 Blood Culture - Preliminary Blood No Growth after 120 hours 03/21/20 03:14 Catheter Tip Culture - Final Catheter Tip Enterococcus faecalis VRE Deloris sp,not albicans/galbr Assessment and Plan Assessment: Altered mental status likely related to multifactorial process, stable and improved likely related to sepsis due bacteremia due to group D enterococcus and to urinary tract infection may very well be related to enterococcus as well as baseline stroke, appears to be coming back to baseline Sepsis due to enterococcus and bacteremia blood culture came back positive for enterococcus Acute on chronic hypoxic respiratory failure Fluid overload and pleural effusion A. fib RVR related to sepsis with baseline A. fib Bilateral basal atelectasis due to prior pneumonia History of recent cold with 19 pneumonia and respiratory failure requiring prolonged ventilator support Plan: PICC line/midline for long-term antibiotic Continue supportive care Supplemental oxygen, can be maintained on 2 L nasal cannula, monitor oxygen saturation at room air if more than 90-94% can DC oxygen Antibiotics as per ID Deep breathing exercises incentive spirometry Further recommendations pending plan of care as per clinical response of the patient Time with Patient: Greater than 30
[2020-03-27 11:58] LABS: Glucose,Whole Blood 78 mg/dL (75-99)
[2020-03-27] MEDS: INSULIN DETEMIR (LEVEMIR) 100 UNIT/ML SYR SQ SCH ×2 (12:06→20:45)
[2020-03-27] MEDS: SODIUM CHLORIDE 0.9% 1,000 ML IV SCH (12:09)
--- NOTE | 2020-03-27 14:48 | PN ---
PROGRESS NOTE DATE OF SERVICE: 03/27/2020 REASON FOR FOLLOWUP: Enterococcus faecalis bacteremia IV site infection. INTERVAL HISTORY: The patient is currently afebrile. The patient has been slightly sleepy and lethargic and was unable to provide any history. No vomiting or diarrhea has been reported by nursing staff on imaging or clinical condition. PHYSICAL EXAMINATION: Blood pressure 159/86, pulse of 92, temperature 98.8. She is 91% on 2 L nasal cannula. General description is an elderly female, lying in bed in no distress. RESPIRATORY SYSTEM: Unlabored breathing, clear to auscultation anteriorly. HEART: S1, S2. Regular rate and rhythm. ABDOMEN: Soft, no tenderness. LABS: No new labs have been obtained today. DIAGNOSTIC IMPRESSION AND PLAN: Patient with enterococcus faecalis bacteremia, source likely IV site has been discontinued. Follow-up blood culture negative. Currently on Unasyn to continue for another 10 days to finish a course of therapy. Continue supportive care. MMODL / IJN: [id number] /
[2020-03-27 18:10] LABS: Glucose,Whole Blood 91 mg/dL (75-99)
--- NOTE | 2020-03-27 19:10 | P.PN ---
Subjective Progress Note Date: 03/27/20 Soledad guaman, is an 79-year-old female well known to my practice who presented to [facility] emergency room with worsening condition with mental status changes and shortness of breath, she was evaluated in emergency room and had evidence of atrial fibrillation with rapid ventricular r esponse, decision was made to proceed with admitting patient to telemetry floor, pulmonary consultation and cardiology consultation were requested. Patient had a prolonged recent admission, she had positive Covid 19 testing, she developed pneumonia and acute respiratory failure and needed prolonged ICU stay with prolonged mechanical ventilation, prior to that patient has a known history of stroke. Patient was seen and examined in the emergency room, she is alert nonverbal in no apparent distress, she is afebrile, heart rate is 117, respiration rate 36 blood pressure 137/109, pulse ox is 99% on 3 L nasal cannula, her white blood count is 7.0 hemoglobin 14.8 and platelet count 191, kidney function and liver function and electrolytes are within normal limits, troponin is slightly elevated at 0.073, lactic acid normal at 1.1, TSH is normal. On 03/21/2020 patient was seen and examined on the medical floor she is alert and responsive she answer questions by yes or no occasionally she does not seem to be in pain there is no fever or chills, PEG tube feeding has been resumed, PICC line has been removed, blood culture positive, patient started on IV vancomycin infectious disease consultation requested. On 03/22/2020 patient was seen and examined on the telemetry floor she is alert and responsive in no apparent distress there is no fever or chills there is evidence of oral thrush, patient is maintained on PEG tube for feeding, cardiology and infectious disease analytical consultant are following. On 03/23/2020 patient was seen and examined on the telemetry floor she is alert, responsive in no apparent distress there is no fever or chills no chest pain or shortness of breath no cough patient is maintained on PEG tube for feeding. Potassium is low at 3.2 we are correcting per protocol. On 03/24/2020 patient was seen and examined on the telemetry floor she is alert responsive in no distress she answers few questions by yes or no, she denies any pain or discomfort there is no shortness of breath no fever or chills, she is still receiving feeding through PEG tube. On 03/25/2020 patient was seen and examined on the medical floor she is alert and responsive, in no distress, she is receiving feeding via PEG tube, glucose level is elevated today, otherwise no complaints. on 03/26/2020 patient was seen and examined on the medical floor she is answering a few questions by yes or no she is denying any pain she states she is feeling okay she is receiving tube feeding via PEG tube. On 03/27/2020 patient was seen and examined on the medical floor she is alert responsive in no apparent distress she had a PICC line placed in her left arm she is still receiving feeding through PEG tube, possible transfer to snf tomorrow Objective - Vital Signs Vital signs: Vital Signs Temp 98.8 F 03/27/20 04:00 Pulse 92 03/27/20 08:00 Resp 18 03/27/20 08:00 BP 159/86 03/27/20 08:00 Pulse Ox 91 L 03/27/20 08:00 Intake & Output 03/26/20 03/27/20 03/27/20 18:59 06:59 18:59 Intake Total 150 215 Output Total 300 700 Balance -150 -485 Weight 76 kg 74 kg Intake: Tube Feeding 150 215 Output: Urine 300 700 Other: Voiding Method Indwelling Catheter Indwelling Catheter Indwelling Catheter - Exam Patient is alert nonverbal in no apparent distress HEENT head normocephalic and atraumatic Neck is supple no JVD no goiter no lymphadenopathy Chest exam reveals a few scattered crackles in both lung ivy no wheezing Cardiac exam reveals regular heart sounds no gallops no murmurs Abdomen is soft nontender no organomegaly with normal bowel sounds, PEG tube site is clear Extremity exam reveals no edema no cyanosis or clubbing - Labs CBC & Chem 7: 03/26/20 05:33 03/26/20 05:33 Labs: Abnormal Lab Results - Last 24 Hours (Table) 03/26/20 03/26/20 03/27/20 Range/Units 16:39 20:38 06:05 POC Glucose (mg/dL) 120 H 102 H 67 L (75-99) mg/dL 03/27/20 Range/Units 06:26 POC Glucose (mg/dL) 144 H (75-99) mg/dL Microbiology - Last 24 Hours (Table) 03/22/20 06:19 Blood Culture - Preliminary Blood No Growth after 120 hours 03/21/20 03:14 Catheter Tip Culture - Final Catheter Tip Enterococcus faecalis VRE Deloris sp,not albicans/galbr Assessment and Plan Plan: 1. Atrial fibrillation with rapid ventricular response, patient received metoprolol, and her heart rate improved, cardiology consult was requested 2. Slight elevation in troponin level, cardiology consult requested 3. Bibasilar consolidation likely atelectasis, patient is well known to Dr. Kamara pulmonary consultation requested 4. Recent history of prolonged admission for Covid 19 pneumonia with acute respiratory failure requiring prolonged mechanical ventilation 5. Previous history of stroke patient has PEG tube for feeding, site inspected and is clear 6. Right arm swelling, Doppler done and was negative for DVT 7. Sepsis with positive blood culture, patient started on IV vancomycin infectious disease consultation requested Medication and labs reviewed continue current management Cardiology and pulmonary consultation reviewed Patient is maintained on Eliquis for stroke prevention Will monitor closely prognosis is guarded due to age and multiple underlying conditions
[2020-03-27] MEDS: FOLIC ACID 1 MG TAB PEG/G-TUBE SCH (20:04)
[2020-03-27] MEDS: PRAVASTATIN SODIUM 20 MG TAB PO SCH (20:04)
[2020-03-27 20:43] LABS: Glucose,Whole Blood 82 mg/dL (75-99)
[2020-03-28 00:02] LABS: Glucose,Whole Blood 94 mg/dL (75-99)
[2020-03-28] MEDS: INSULIN ASPART (NovoLOG) 100 UNIT/ML VIAL SQ SCH ×3 (00:05→12:52)
[2020-03-28] MEDS: AMPICILLIN-SULBACTAM 3 GM in SODIUM CHLORIDE 0.9% 100 ML IVPB SCH ×2 (05:52→12:53)
[2020-03-28 06:15] LABS: Glucose,Whole Blood 89 mg/dL (75-99)
[2020-03-28 07:02] LABS: ALT 15 U/L (4-34); AST 29 U/L (14-36); African American GFR (CKD) >90 (>60 ml/min/1.73 sqM); Albumin 2.8 g/dL (3.5-5.0); Alkaline Phosphatase 90 U/L (38-126); Anion Gap 4 mmol/L; Blood Urea Nitrogen 10 mg/dL (7-17); Calcium 9.8 mg/dL (8.4-10.2); Carbon Dioxide 26 mmol/L (22-30); Chloride 110 mmol/L (98-107); Glucose 86 mg/dL (74-99); Non-African American GFR(CKD) >90 (>60 ml/min/1.73 sqM); Potassium 3.7 mmol/L (3.5-5.1); Sodium 140 mmol/L (137-145); Total Bilirubin 0.6 mg/dL (0.2-1.3); Total Protein 5.3 g/dL (6.3-8.2)
[2020-03-28 07:10] LABS: Basophils # (A) 0.1 k/uL (0-0.2); Basophils % (A) 1 %; Eosinophils # (A) 0.2 k/uL (0-0.7); Eosinophils % (A) 4 %; HCT 46.7 % (34.0-46.0); HGB 14.8 gm/dL (11.4-16.0); Hypochromasia Moderate; Lymphocytes # (A) 1.9 k/uL (1.0-4.8); Lymphocytes % (A) 28 %; MCH 32.4 pg (25.0-35.0); MCHC 31.7 g/dL (31.0-37.0); MCV 102.2 fL (80.0-100.0); Macrocytosis Slight; Mean Platelet Volume 9.8; Monocytes # (A) 0.5 k/uL (0-1.0); Monocytes % (A) 7 %; Neutrophils % (A) 59 %; Platelet Count 175 k/uL (150-450); RBC 4.57 m/uL (3.80-5.40); RDW 14.7 % (11.5-15.5); WBC 6.9 k/uL (3.8-10.6)
[2020-03-28] MEDS: lisinopriL 5 MG TAB PEG/G-TUBE SCH (09:10)
[2020-03-28] MEDS: INSULIN DETEMIR (LEVEMIR) 100 UNIT/ML SYR SQ SCH (09:10)
[2020-03-28] MEDS: METOPROLOL TARTRATE 25 MG TAB PEG/G-TUBE SCH (09:10)
[2020-03-28] MEDS: FERROUS SULFATE ORAL ELIXIR 300 MG/5 ML CUP PEG/G-TUBE SCH (09:10)
[2020-03-28] MEDS: APIXABAN 2.5 MG TABLET PO SCH (09:10)
[2020-03-28] MEDS: predniSONE 10 MG TAB PEG/G-TUBE SCH (09:10)
[2020-03-28] MEDS: GLYCOPYRROLATE 1 MG TAB PO SCH (09:10)
[2020-03-28] MEDS: DOCUSATE ORAL SOLN 100 MG/10 ML CUP PEG/G-TUBE SCH (09:10)
[2020-03-28] MEDS: FLUCONAZOLE ORAL SUSP 1,400 MG/35 ML BOTTLE PEG/G-TUBE SCH (09:13)
[2020-03-28] MEDS: CHOLECALCIFEROL 1,000 UNIT TAB PEG/G-TUBE SCH (09:13)
[2020-03-28 11:29] LABS: Glucose,Whole Blood 96 mg/dL (75-99)
[2020-03-28] MEDS: SODIUM CHLORIDE 0.9% 1,000 ML IV SCH (12:52)
--- NOTE | 2020-03-28 13:26 | P.DS ---
Providers Date of admission: 03/20/20 12:40 Expected date of discharge: 03/28/20 Attending physician: Yvonne Dominguez Consults: 03/20/20 18:23 Consult Physician Routine Consulting Provider: Maria Fernanda Rodriguez Consult Reason/Comments: a fib with RVR Do you want consulting provider notified?: Yes 03/20/20 18:25 Consult Physician Routine Consulting Provider: Dimitry Kamara Consult Reason/Comments: COPD Do you want consulting provider notified?: Yes 03/21/20 10:12 Consult Physician Routine Consulting Provider: Phyllis Neal Consult Reason/Comments: sepsis Do you want consulting provider notified?: Yes Primary care physician: Yvonne Alberto [facility] Course: Diagnosis on discharge: 1. Atrial fibrillation with rapid ventricular response, patient received metoprolol, and her heart rate improved, cardiology consult was requested 2. Slight elevation in troponin level, cardiology consult requested 3. Bibasilar consolidation likely atelectasis, patient is well known to Dr. Kamara pulmonary consultation requested 4. Recent history of prolonged admission for Covid 19 pneumonia with acute respiratory failure requiring prolonged mechanical ventilation 5. Previous history of stroke patient has PEG tube for feeding, site inspected and is clear 6. Right arm swelling, Doppler done and was negative for DVT 7. Sepsis with positive blood culture, patient started on IV vancomycin infectious disease consultation requested, patient was seen by Dr. Neal infectious disease antibiotics were switched to Unasyn patient with continue Unasyn [facility] through new PICC line in the left arm Hospital course: Soledad guaman, is an 79-year-old female well known to my practice who present ed to [facility] emergency room with worsening condition with mental status changes and shortness of breath, she was evaluated in emergency room and had evidence of atrial fibrillation with rapid ventricular response, decision was made to proceed with admitting patient to telemetry floor, pulmonary consultation and cardiology consultation were requested. Patient had a prolonged recent admission, she had positive Covid 19 testing, she developed pneumonia and acute respiratory failure and needed prolonged ICU stay with prolonged mechanical ventilation, prior to that patient has a known history of stroke. Patient was seen and examined in the emergency room, she is alert nonverbal in no apparent distress, she is afebrile, heart rate is 117, respiration rate 36 blood pressure 137/109, pulse ox is 99% on 3 L nasal cannula, her white blood count is 7.0 hemoglobin 14.8 and platelet count 191, kidney function and liver function and electrolytes are within normal limits, troponin is slightly elevated at 0.073, lactic acid normal at 1.1, TSH is normal. On 03/21/2020 patient was seen and examined on the medical floor she is alert and responsive she answer questions by yes or no occasionally she does not seem to be in pain there is no fever or chills, PEG tube feeding has been resumed, PICC line has been removed, blood culture positive, patient started on IV vancomycin infectious disease consultation requested. On 03/22/2020 patient was seen and examined on the telemetry floor she is alert and responsive in no apparent distress there is no fever or chills there is marley dence of oral thrush, patient is maintained on PEG tube for feeding, cardiology and infectious disease benefits consultant are following. On 03/23/2020 patient was seen and examined on the telemetry floor she is alert, responsive in no apparent distress there is no fever or chills no chest pain or shortness of breath no cough patient is maintained on PEG tube for feeding. Potassium is low at 3.2 we are correcting per protocol. On 03/24/2020 patient was seen and examined on the telemetry floor she is alert responsive in no distress she answers few questions by yes or no, she denies any pain or discomfort there is no shortness of breath no fever or chills, she is still receiving feeding through PEG tube. On 03/25/2020 patient was seen and examined on the medical floor she is alert and responsive, in no distress, she is receiving feeding via PEG tube, glucose level is elevated today, otherwise no complaints. on 03/26/2020 patient was seen and examined on the medical floor she is answering a few questions by yes or no she is denying any pain she states she is feeling okay she is receiving tube feeding via PEG tube. On 03/27/2020 patient was seen and examined on the medical floor she is alert responsive in no apparent distress she had a PICC line placed in her left arm she is still receiving feeding through PEG tube, possible transfer to [facility] tomorrow Patient Condition at Discharge: Fair Plan - Discharge Summary Discharge Rx Participant: No New Discharge Prescriptions: New Ampicillin-Sulbactam [Unasyn] 3 gm IVPB Q8HR #30 vial Fluconazole Oral Susp [Diflucan Oral Susp] 200 mg PEG/G-TUBE DAILY 5 Days #5 ml Insulin Detemir (Levemir) [Levemir] 15 unit SQ DAILY@0800 syr Continue Cholecalciferol [Vitamin D3 (25 Mcg = 1000 Iu)] 2,000 unit PEG/G-TUBE DAILY Polyethylene Glycol 3350 [Miralax] 17 gm PEG/G-TUBE DAILY PRN PRN Reason: Constipation Acetaminophen Tab [Tylenol] 650 mg PEG/G-TUBE Q8H PRN PRN Reason: Mild Pain Or Fever > 100.5 Insulin Lispro [Admelog Solostar] See Protocol SQ Q6H Glucerna Shake 1 can PEG/G-TUBE TID Metoprolol Tartrate [Lopressor] 50 mg PEG/G-TUBE BID@0800,1600 Glycopyrrolate 1 mg PO BID@0800,1999 Apixaban [Eliquis] 2.5 mg PO BID@0800,1999 predniSONE 10 mg PEG/G-TUBE DAILY@0800 Pravastatin Sodium [Pravachol] 10 mg PEG/G-TUBE HS Lisinopril [Zestril] 5 mg PEG/G-TUBE DAILY@0800 Insulin Glargine,Hum.rec.anlog [Lantus Solostar] 30 unit SQ HS@1999 Docusate Oral Soln [Colace Oral Soln] 100 mg PEG/G-TUBE DAILY@0800 Ferrous Sulfate Oral Elixir [Feosol Liquid] 300 mg PEG/G-TUBE DAILY Folic Acid 1 mg PEG/G-TUBE HS Discontinued Insulin Glargine,Hum.rec.anlog [Lantus Solostar] 15 unit SQ DAILY@0800 Discharge Medication List Cholecalciferol [Vitamin D3 (25 Mcg = 1000 Iu)] 2,000 unit PEG/G-TUBE DAILY 12/28/19 [History] Acetaminophen Tab [Tylenol] 650 mg PEG/G-TUBE Q8H PRN 03/20/20 [History] Apixaban [Eliquis] 2.5 mg PO BID@0800,199903/20/20 [History] Docusate Oral Soln [Colace Oral Soln] 100 mg PEG/G-TUBE DAILY@0800 03/20/20 [History] Ferrous Sulfate Oral Elixir [Feosol Liquid] 300 mg PEG/G-TUBE DAILY 03/20/20 [History] Folic Acid 1 mg PEG/G-TUBE HS 03/20/20 [History] Glucerna Shake 1 can PEG/G-TUBE TID 03/20/20 [History] Glycopyrrolate 1 mg PO BID@0800,199903/20/20 [History] Insulin Glargine,Hum.rec.anlog [Lantus Solostar] 30 unit SQ HS@199903/20/20 [History] Insulin Lispro [Admelog Solostar] See Protocol SQ Q6H 03/20/20 [History] Lisinopril [Zestril] 5 mg PEG/G-TUBE DAILY@0800 03/20/20 [History] Metoprolol Tartrate [Lopressor] 50 mg PEG/G-TUBE BID@0800,1600 03/20/20 [History] Polyethylene Glycol 3350 [Miralax] 17 gm PEG/G-TUBE DAILY PRN 03/20/20 [History] Pravastatin Sodium [Pravachol] 10 mg PEG/G-TUBE HS 03/20/20 [History] predniSONE 10 mg PEG/G-TUBE DAILY@0800 03/20/20 [History] Ampicillin-Sulbactam [Unasyn] 3 gm IVPB Q8HR #30 vial 03/28/20 [Rx] Fluconazole Oral Susp [Diflucan Oral Susp] 200 mg PEG/G-TUBE DAILY 5 Days #5 ml 03/28/20 [Rx] Insulin Detemir (Levemir) [Levemir] 15 unit SQ DAILY@0800 syr 03/28/20 [Rx] Follow up Appointment(s)/Referral(s): Renée Wells, [NON-STAFF] - Yvonne Dominguez MD [Primary Care Provider] - 1-2 days
--- NOTE | 2020-03-28 14:23 | CDI ---
Documentation Clarification Form Date: 03/28/2020 11:04:00 AM From: Norma WarnerYoungIRIS, CCDS Admit Date: 03/20/2020 12:40:00 PM Patient Name: Soledad Enriquez Visit Number: [id number] Discharge Date: ATTENTION: The Clinical Documentation Specialists (CDI) and [facility] Coding Staff appreciate your assistance in clarifying documentation. Please respond to the clarification below the line at the bottom and electronically sign. The CDI & [facility] Coding staff will review the response and follow-up if needed. Please note: Queries are made part of the Legal Health Record. If you have any questions, please contact the author of this message via ITS. Dr. Yvonne Dominguez: Per the 03/22 Cardiology Progress Note: "Recent prolonged admission in December with COVID-19, suggestion of atelectasis or possible pneumonia on this current chest x-ray." History/Risk Factors: Atrial Fibrillation, Asthma, COPD, Weakness secondary to previous CVA, DM II, Hypertension & Osteoarthritis. Dysphagia, has feeding tube. Former smoker. Clinical Indicators: Presented to the ED on 03/20 from a custodial with SOB, right upper extremity swelling & increased lethargy. The patient had a recent prolonged admission due to COVID-19 pneumonia. Diagnosed with Enterococcus bacteremia & sepsis secondary to IV site infection & UTI. Vital signs 03/20: T 98.4, P 117^, R 36^, BP 137/109, PO 99. LAB 03/20: ABG: HCO3 32^, pH 7.47^, PO2 75*, TCO2 33^. Blood cx 03/20: Enterococcus faecalis, Gr D Enterococcus. 03/20: COVID NEGATIVE 03/20 CXR: Limited, rotated exam. Left base underpenetrated and not well assessed. Possible underlying effusions and bibasilar atelectasis and/or consolidation. Allowing for patient positioning, appearance is relatively similar to 01/25/202003/23 CXR: Bilateral lower lobe infiltrate and small effusion. Treatment: IV Vancomycin, IV fluid 1,000 mls @ 20 mls/hr, 2L nc O2, Incentive spirometry. In order to capture the severity of condition, please clarify if the condition signifies and you are treating for: Pneumonia is ruled out Pneumonia, please specify type if known: o Please specify if Present on Admission Other, please specify Unable to determine (Last Revision: December 2017) unabl e to determine please check with pulmonary on the case MTDD
--- NOTE | 2020-03-28 15:21 | P.PN ---
Subjective Progress Note Date: 03/28/20 Principal diagnosis: Altered mental status likely related to multifactorial process, likely related to sepsis due bacteremia due to group D enterococcus and to urinary tract infect ion may very well be related to enterococcus patient does have the nitrate and leukocyte esterase with many bacteria, also blood culture came back positive for enterococcus, as well as related to baseline condition of stroke and hemiparesis A. fib RVR related to sepsis with baseline A. fib Bilateral basal atelectasis due to prior pneumonia History of recent covid-19 pneumonia and respiratory failure requiring prolonged ventilator support 03/28/2020, patient seen eval reexamined during the rounds labs reviewed medications reviewed, mental status change, cough congestion is improved, patient remains on supplemental oxygen, patient is being planned for discharge on outpatient antibiotic finish therapy for enterococcus 03/27/2020, patient seen eval reexamined during the rounds labs reviewed medications reviewed breathing comfortably mental status continued to be stable waxes and wane, patient remains on 2 L of oxygen and saturating well, patient is to go undergo PICC line/midline and a long-term outpatient antibiotic as an extended care facility 03/26/2020, patient seen eval reexamined during the rounds labs reviewed medications reviewed overall no significant change has been seen, patient remains afebrile with stable hemodynamics oxygen saturation is 97% on room air, mental status remains unchanged, at times patient opens eyes follow simple commands other time she continued to sleep, repeat blood cultures have been negative 03/25/2020, patient seen and evaluated examined awake, intermittently confused, occasional cough is present no evidence of shortness of breath, on 2 L oxygen saturation is ranging from 99-92% she remains afebrile, catheter tip was positive for enterococcus as well as the blood, ID service is adjusting antibiotics chest x-ray finding as dictated above 03/23/2020, patient seen eval examined during the rounds reviewed medications reviewed, chest x-ray from this morning reviewed as well patient has bilateral atelectasis along with small bilateral pleural effusion, we'll give another dose of Lasix today, and titrate oxygen down to baseline This is a 79-year-old female with history of recent respiratory failure related to covert 19 pneumonia patient was intubated for extended period of time due to failure to wean patient was transferred to, patient transferred to assisted where she was noted to have increased swelling and increased lethargy patient was brought to emergency department for further evaluation patient was noted to be in A. fib RVR also on anticoagulation patient does have a PICC line in left upper extremity, chest x-ray showed left base underpenetrated with subsegmental atelectasis not much different compared to x-ray performed in January, CT of the head revealed chronic atrophic changes and small vessel changes no acute processes identified, venous Doppler of right upper extremity negative for DVT, due to prior stroke patient is mostly nonverbal and has hemiparesis also have baseline diabetes dyslipidemia and end-stage lung disease hypertension and dementia Objective - Vital Signs Vital signs: Vital Signs Temp 97.8 F 03/28/20 09:07 Pulse 92 03/28/20 09:07 Resp 16 03/28/20 09:07 BP 129/83 03/28/20 09:07 Pulse Ox 93 L 03/28/20 09:07 Intake & Output 03/27/20 03/28/20 03/28/20 18:59 06:59 18:59 Intake Total 1540 165 Output Total 1800 650 Balance 1540 -1635 -650 Weight 75 kg 75 kg Intake: Intake, IV Titration 440 Amount Ampicillin-Sulbactam 3 gm 200 In Sodium Chloride 0.9% 100 ml @ 200 mls/hr IVPB Q6HR [facility] Rx#:[id number] Sodium Chloride 0.9% 1, 240 000 ml @ 20 mls/hr IV . Q24H [facility] Rx#:[id number] Tube Feeding 1100 165 Output: Urine 1800 650 Other: Voiding Method Indwelling Catheter Indwelling Catheter Indwelling Catheter - Exam - Constitutional General appearance: cooperative, disheveled, arousable to follow simple commands - EENT ENT: hard of hearing Ears: bilateral: normal - Neck Carotids: bilateral: upstroke normal - Respiratory Respiratory: bilateral: diminished - Cardiovascular Rhythm: irregularly irregular Heart sounds: normal: S1, S2 - Gastrointestinal General gastrointestinal: decreased bowel sounds - Musculoskeletal Musculoskeletal: generalized weakness - Labs CBC & Chem 7: 03/28/20 05:49 03/28/20 05:49 Labs: Abnormal Lab Results - Last 24 Hours (Table) 03/28/20 03/28/20 Range/Units 05:49 05:49 Hct 46.7 H (34.0-46.0) % MCV 102.2 H (80.0-100.0) fL Chloride 110 H (98-107) mmol/L Creatinine 0.37 L (0.52-1.04) mg/dL Total Protein 5.3 L (6.3-8.2) g/dL Albumin 2.8 L (3.5-5.0) g/dL Microbiology - Last 24 Hours (Table) 03/22/20 06:19 Blood Culture - Final Blood No Growth after 144 hours Assessment and Plan Assessment: Altered mental status likely related to multifactorial process, stable and improved likely related to sepsis due bacteremia due to group D enterococcus and to urinary tract infection may very well be related to enterococcus as well as baseline stroke, appears to be coming back to baseline Sepsis due to enterococcus and bacteremia blood culture came back positive for enterococcus Acute on chronic hypoxic respiratory failure Fluid overload and pleural effusion A. fib RVR related to sepsis with baseline A. fib Bilateral basal atelectasis due to prior pneumonia History of recent cold with 19 pneumonia and respiratory failure requiring prolonged ventilator support Plan: PICC line/midline for long-term antibiotic Continue supportive care Supplemental oxygen, can be maintained on 2 L nasal cannula, monitor oxygen saturation at room air if more than 90-94% can DC oxygen Antibiotics as per ID Deep breathing exercises incentive spirometry Further recommendations pending plan of care as per clinical response of the patient Agree with discharge planning and follow-up as needed Time with Patient: Greater than 30
--- NOTE | 2020-03-28 16:06 | PN ---
PROGRESS NOTE DATE OF SERVICE: 03/28/2020 REASON FOR FOLLOWUP: Enterococcus faecalis bacteremia secondary to IV site infection. INTERVAL HISTORY: The patient is currently afebrile. The patient is lethargic though arousable. When asked specifically, she mentioned she is feeling better. No chest pain or cough. No abdominal pain. However, no diarrhea has been reported by the nursing staff. PHYSICAL EXAMINATION: Blood pressure 129/83 with a pulse of 92, temperature 97.8. She is 93% on 2 L nasal cannula. General description is an elderly female lying in bed in no distress. RESPIRATORY SYSTEM: Unlabored breathing. Clear to auscultation anteriorly. HEART: S1, S2. Regular rate and rhythm. ABDOMEN: Soft. No tenderness. LABS: Hemoglobin is 14.3, white count of 6.9, BUN of 10, creatinine 0.37. DIAGNOSTIC IMPRESSION AND PLAN: Patient with Enterococcus faecalis bacteremia, IV related. Repeat blood culture has been negative so far. She will need to get a midline. Patient to continue with Unasyn 3 grams q.8 hours for another 10 days to finish her course of therapy. Plan of care was discussed with the admitting physician working on discharge. MMODL / ROBELN: [id number] /
--- NOTE | 2020-03-29 15:49 | CDI ---
Documentation Clarification Form Date: 03/29/20 From: Mell Abreu CCS Phone: If you have a question about this query, please contact Sindy Dan, Eligibility Supervisor at [phone] between 8am and 5pm. Admit Date: 03/20/20 Discharge Date:03/28/20 Patient Name: Soledad Enriquez Visit Number: [id number] ATTENTION: The Clinical Documentation Specialists (CDI) and [facility] Coding Staff appreciate your assistance in clarifying documentation. Please respond to the clarification below the line at the bottom and electronically sign. The CDI & [facility] Coding staff will review the response and follow-up if needed. Please note: Queries are made part of the Legal Health Record. If you have any questions, please contact the author of this message via ITS. Dear Dr. Dominguez, Altered mental status likely related to multifactorial process, likely related to sepsis was documented in the Consult, PNs, H&P, DS. ED documents: Unable to obtain ROS secondary to mental status History/Risk Factors: Sepsis, COPD, DM, HTN, Gastrostomy status, Acute resp failure Clinical Indicators: Altered mental status Labs: CT: Age related atrophic and chronic small vessel ischemic change without acute intracranial process seen at this time Treatment: Vancomycin 1,250 mg IV In your professional opinion, please clarify the etiology of the Altered Mental Status, if known. Metabolic encephalopathy Encephalopathy due to sepsis Altered mental status Delirium (specify cause): Encephalopathy (specify Type and Underlying Medical Illness) Other condition (please specify) Unable to determine metabolic encephalopathy MTDD
[2020-03-30 04:34] VITALS: BP 129/83; PULSE 92; RESP 16; TEMP 97.8
[2020-03-30 05:19] VITALS: BMI 26.6
--- NOTE | 2020-04-03 07:35 | CDI ---
Documentation Clarification Form Date: 03/28/2020 11:04:00 AM From: Norma WarnerYoungIRIS young, CCDS Admit Date: 03/20/2020 12:40:00 PM Patient Name: Soledad Enriquez Visit Number: [id number] Discharge Date: 03/28/2020 03:13:00 PM ATTENTION: The Clinical Documentation Specialists (CDI) and [facility] Coding Staff appreciate your assistance in clarifying documentation. Please respond to the clarification below the line at the bottom and electronically sign. The CDI & [facility] Coding staff will review the response and follow-up if needed. Please note: Queries are made part of the Legal Health Record. If you have any questions, please contact the author of this message via ITS. Dr. Dimitry Kamara: This query has been forwarded to the pulmonary decorator consultant per the attending physician on 04/03. Per the 03/22 Cardiology Progress Note: "Recent prolonged admission in December with COVID-19, suggestion of atelectasis or possible pneumonia on this current chest x-ray." History/Risk Factors: Atrial Fibrillation, Asthma, COPD, Weakness secondary to previous CVA, DM II, Hypertension & Osteoarthritis. Dysphagia, has feeding tube. Former smoker. Clinical Indicators: Presented to the ED on 03/20 from a [facility] with SOB, right upper extremity swelling & increased lethargy. The patient had a recent prolonged admission due to COVID-19 pneumonia. Diagnosed with Enterococcus bacteremia & sepsis secondary to IV site infection & UTI. Vital signs 03/20: T 98.4, P 117^, R 36^, BP 137/109, PO 99. LAB 03/20: ABG: HCO3 32^, pH 7.47^, PO2 75*, TCO2 33^. Blood cx 03/20: Enterococcus faecalis, Gr D Enterococcus. 03/20: COVID NEGATIVE 03/20 CXR: Limited, rotated exam. Left base underpenetrated and not well assessed. Possible underlying effusions and bibasilar atelectasis and/or consolidation. Allowing for patient positioning, appearance is relatively similar to 01/25/202003/23 CXR: Bilateral lower lobe infiltrate and small effusion. Treatment: IV Vancomycin, IV fluid 1,000 mls @ 20 mls/hr, 2L nc O2, Incentive spirometry. In order to capture the severity of condition, please clarify if the condition signifies and you are treating for: Pneumonia, please specify type if known: CAP Present on Admission (Last Revision: December 2017) MTDD
== END 2020-03-28 15:13 | DRG 314 ==
LOC: EEVIPCON 10:34 → EC 10:34 → 3SCARD 12:40
PROVIDERS: ADMIT Internal Medicine; ATTEND Internal Medicine
PROC: 3E0G76Z Introduction of Nutritional Substance into Upper GI, Via Natural or Artificial Opening (ICD-10-PCS; 2020-03-21)
PROC: 05HC33Z Insertion of Infusion Device into Left Basilic Vein, Percutaneous Approach (ICD-10-PCS; principal; 2020-03-26 14:00)
DX: T80.211A Bloodstream infection due to central venous catheter, initial encounter (principal); A41.81 Sepsis due to Enterococcus; J96.21 Acute and chronic respiratory failure with hypoxia; G93.41 Metabolic encephalopathy; J18.9 Pneumonia, unspecified organism; J90 Pleural effusion, not elsewhere classified; I48.19 Other persistent atrial fibrillation; I69.351 Hemiplegia and hemiparesis following cerebral infarction affecting right dominant side; J98.11 Atelectasis; N39.0 Urinary tract infection, site not specified; Z11.59 Encounter for screening for other viral diseases; F03.90 Unspecified dementia, unspecified severity, without behavioral disturbance, psychotic disturbance, mood disturbance, and anxiety; J44.9 Chronic obstructive pulmonary disease, unspecified; E11.9 Type 2 diabetes mellitus without complications; Z93.1 Gastrostomy status; Z79.4 Long term (current) use of insulin; I10 Essential (primary) hypertension; E78.5 Hyperlipidemia, unspecified; M19.90 Unspecified osteoarthritis, unspecified site; R13.10 Dysphagia, unspecified; J98.4 Other disorders of lung; E87.70 Fluid overload, unspecified; M79.89 Other specified soft tissue disorders; R79.89 Other specified abnormal findings of blood chemistry; R41.82 Altered mental status, unspecified; H40.9 Unspecified glaucoma; Z87.01 Personal history of pneumonia (recurrent); Z86.19 Personal history of other infectious and parasitic diseases; Z79.01 Long term (current) use of anticoagulants; Z79.52 Long term (current) use of systemic steroids; Z99.3 Dependence on wheelchair; Z87.891 Personal history of nicotine dependence; Z90.710 Acquired absence of both cervix and uterus; Z79.899 Other long term (current) drug therapy
CPT/HCPCS: 36410; 36415; 36600; 70450; 71045; 76937; 80053; 80202; 81001; 82140; 82803; 82805; 83605; 83690; 83735; 83880; 84443; 84484; 85025; 85610; 85652; 85730; 86140; 87040; 87070; 87077; 87186; 93005; 93306; 99285

== ENCOUNTER 2020-04-28 15:05 | Emergency (ER) | payer MEDICARE, OTHER ==
[2020-04-28 15:11] LABS: Glucose,Whole Blood 194 mg/dL (75-99)
[2020-04-28] MEDS ORDERED: SODIUM CHLORIDE 0.9% 1,000 ML IV STA (15:20)
--- NOTE | 2020-04-28 15:43 | ED ---
General Adult HPI - General Chief complaint: Altered Mental Status Stated complaint: Altered Mental Status Time Seen by Provider: 04/28/20 15:13 Source: EMS Mode of arrival: EMS Limitations: altered mental status - History of Present Illness Initial comments: Dictation was produced using [employer] dictation software. please excuse any grammatical, word or spelling errors. This patient was cared for during a federal and state declared state of [facility] secondary to Covid 19 Chief Complaint: 79-year-old female sent in from one of the local nursing homes for altered mental status. History of Present Illness: His 79-year-old female she has multiple comorbidities. Patient unable to provide HPI at this time. According to nurse received report from EMS patient was last seen normal at about 8 AM. It is unclear what patient's baseline mental status is. Shortly prior to coming to the emergency department she was discovered to be altered. EMS reports that patient was not really following commands. Chart review was performed. It appears that patient was recently admitted for Covid19 and bacteremia sepsis. She had a prolonged hospital stay. Transfer documentation reviewed. Patient's multiple comorbidities. She does take L quest for atrial fibrillation. She is also diabetic. EMS checked her glucose was found to be normal. Patient is currently undergoing treatment and antibiotic treatment via right upper extremity peripheral inserted catheter to treat bacteremia sepsis. Unable to obtain ROS secondary to mental status PHYSICAL EXAM: General Impression: Eyes open, nonresponsive HEENT: Normocephalic atraumatic, extra-ocular movements intact, pupils equal and reactive to light bilaterally, mucous membranes moist. Cardiovascular: Heart regular rate and rhythm Chest: Breath sounds bilaterally Abdomen: abdomen soft, non-tender, non-distended, no organomegaly Musculoskeletal: Pulses present and equal in all extremities, 1+ pitting edema to bilateral lower extremities Neurological: Does not follow commands, grimaces and moves all extremities to painful stimuli, nonverbal Skin: Intact with no visualized rashes Psych: Not tested ED course: 79-year-old Female multiple comorbidities presents with altered men susie status. Is upon arrival shows 80s percent on room air, heart rate 51, rest of vital signs within acceptable limits. Patient is unresponsive however has her eyes open. There is concern for cerebrovascular accident. Code stroke was paged immediately after patient's arrival. Patient is nonverbal and does not follow commands. Consider comorbidities and that she takes any coagulation medications. Would not recommend TPA administration at this time. Pending discussion with code stroke neurology. Chart review was performed. Patient was recently admitted to the hospital. She had prolonged hospital stay secondary to Covid 19 pneumonia, hypoxic respiratory failure and bacteremia sepsis. Case was discussed with Dr. Torres who is the on-call stroke neurologist. He recommends CT and CTA. He will review the images and patient be a stroke robot and make his recommendations. Images were reviewed by Dr. Hinson . He had no recommendations at this time. CT was read by radiology. CT was unremarkable. CT is read by radiologist showing hydrocephalus. There are however are no acute differences. We do not have neurosurgery or in-house neurology at her facility today or over the weekend. Patient is densely aphasic. There is concern that a serious neurologic issues going on. Discussed patient case with Dr. Pineda who requests that I contact their neurosurgeon to discuss whether patient is appropriate for transfer. Discussed patient case Dr. Raygoza who is the neurosurgeon on-call at [facility]. Case is discussed in detail. He requests that I contact the radiologist and to decide whether there appears to be any concerns of acute changes seen on the CT brain compared to previous that would warrant transfer. Case was discussed with our tele-neurologist Dr. Marie who recommends transfer patient to [facility] given we do not have MRI over the weekend she is also not seeing any patient's for the rest of the day. Case is discussed with Dr. Aguilar of radiology who reports that patient's CT imaging did not appear different compared to most previous films from February. Laboratory evaluation obtained. No leukocytosis. Hemoglobin is 17.6. Patient likely hemoconcentrated from dehydration. Coag panel is unremarkable. Arterial blood gases obtained. PH is normal. Patient has a pO2 of 249 with 100% FiO2. Supplement oxygen is weaned. Metabolic panel was obtained. Sodium 147. BUN 25. Glucose 211. Ammonia is 36. Troponin is 0.093. She has history of elevated troponins. Urinalysis has positive nitrites but no white blood cells. More evaluation of chart was performed. On some physical exams and reports a chin is nonverbal but on other physical exams patient is alert and oriented 1. She reevaluated at bedside she seems to be looking around spontaneously however she still nonverbal and not following commands. We discussed case with Dr Pacheco from [facility] emergency room who is willing to to accept patient. Discussion that I held with our telemetry neurologist, their neurosurgeon in our radiologist was also discussed with ER physician. At this point is unclear what is causing patient's altered mental status. Patient given 1 g of ceftriaxone to cover for nitrate positive urinary tract infection. EKG interpretation: Ventricular rate 108, atrial fibrillation with rapid ventricular rate, QRS 76, QTC 455. No FL prolongation, no QTC prolongation, no ST or T-wave changes noted. EKG compared to 03/20/2020 showing no changes. Overall, this EKG is unremarkable - Related Data Home Medications Medication Instructions Recorded Confirmed Cholecalciferol [Vitamin D3 (25 1,000 unit PEG/G-TUBE BID@0800,159912/28/19 04/28/20 Mcg = 1000 Iu)] Acetaminophen Tab [Tylenol] 650 mg PEG/G-TUBE Q8H PRN 03/20/20 04/28/20 Apixaban [Eliquis] 2.5 mg PEG/G-TUBE BID@0800,159903/20/20 04/28/20 Ferrous Sulfate Oral Elixir 300 mg PEG/G-TUBE DAILY 03/20/20 04/28/20 [Feosol Liquid] Folic Acid 1 mg PEG/G-TUBE DAILY 03/20/20 04/28/20 Glycopyrrolate 1 mg PEG/G-TUBE BID@0800,1600 03/20/20 04/28/20 Insulin Glargine,Hum.rec.anlog 30 unit SQ HS@199903/20/20 04/28/20 [Lantus Solostar] Metoprolol Tartrate [Lopressor] 50 mg PEG/G-TUBE BID@0800,159903/20/20 04/28/20 Pravastatin Sodium [Pravachol] 10 mg PEG/G-TUBE HS 03/20/20 04/28/20 lisinopriL [Zestril] 5 mg PEG/G-TUBE DAILY@0803/20/20 04/28/20 polyethylene glycoL 3350 [Miralax] 17 gm PEG/G-TUBE DAILY 03/20/20 04/28/20 predniSONE 10 mg PEG/G-TUBE DAILY@0803/20/20 04/28/20 Docusate [Colace] 100 mg PEG/G-TUBE DAILY 04/28/20 04/28/20 Insulin Lispro [Admelog] 6 units SQ ACHS 04/28/20 04/28/20 Previous Rx's Medication Instructions Recorded Insulin Detemir (Levemir) [Levemir] 15 unit SQ DAILY@0800 syr 03/28/20 Allergies Allergy/AdvReac Type Severity Reaction Status Date / Time No Known Allergies Allergy Verified 04/28/20 16:16 Review of Systems ROS Statement: Those systems with pertinent positive or pertinent negative responses have been documented in the HPI. ROS Other: All systems not noted in ROS Statement are negative. 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 Date of last positivie culture/infection: 03/21/20 MDRO Source:: VRE CATH TIP Past Surgical History: Hysterectomy Additional Past Surgical History / Comment(s): not known at ECF,peg insertion Past Anesthesia/Blood Transfusion Reactions: No Reported Reaction, Unable to Obtain Additional Past Anesthesia/Blood Transfusion Reaction / Comment(s): spouse thinks no problems that he knows of(poor historian), no info at ECF Past Psychological History: No Psychological Hx Reported Smoking Status: Unknown if ever smoked Past Alcohol Use History: None Reported Past Drug Use History: None Reported - Past Family History Mother Family Medical History: Unable to Obtain Additional Family Medical History / Comment(s): no info at ECF Father History Unknown: Yes General Exam Limitations: altered mental status Course Vital Signs 04/28/20 04/28/20 04/28/20 15:08 16:09 17:10 Temperature 98.4 F 99.3 F Pulse Rate 51 L 93 97 Respiratory 22 24 21 Rate Blood Pressure 140/103 129/99 147/100 O2 Sat by Pulse 83 L 100 100 Oximetry Medical Decision Making - Lab Data Result diagrams: 04/28/20 15:22 04/28/20 15:22 Lab Results 04/28/20 04/28/20 04/28/20 Range/Units 15:09 15:22 15:22 WBC 6.8 (3.8-10.6) k/uL RBC 5.74 H (3.80-5.40) m/uL Hgb 17.6 H (11.4-16.0) gm/dL Hct 57.4 H* (34.0-46.0) % MCV 100.1 H (80.0-100.0) fL MCH 30.6 (25.0-35.0) pg MCHC 30.6 L (31.0-37.0) g/dL RDW 13.9 (11.5-15.5) % Plt Count 174 (150-450) k/uL Neutrophils % 71 % Lymphocytes % 20 % Monocytes % 4 % Eosinophils % 2 % Basophils % 2 % Neutrophils # 4.8 (1.3-7.7) k/uL Lymphocytes # 1.4 (1.0-4.8) k/uL Monocytes # 0.3 (0-1.0) k/uL Eosinophils # 0.1 (0-0.7) k/uL Basophils # 0.1 (0-0.2) k/uL Hypochromasia Moderate PT (9.0-12.0) sec INR (<1.2) APTT (22.0-30.0) sec Sample Site ABG pH (7.35-7.45) ABG pCO2 (35-45) mmHg ABG pO2 (83-108) mmHg ABG HCO3 (21-25) mmol/L ABG Total CO2 (19-24) mmol/L ABG O2 Saturation (94-97) % ABG Base Excess mmol/L Osei Test FiO2 % Sodium 147 H (137-145) mmol/L Potassium 4.3 (3.5-5.1) mmol/L Chloride 111 H (98-107) mmol/L Carbon Dioxide 30 (22-30) mmol/L Anion Gap 6 mmol/L BUN 25 H (7-17) mg/dL Creatinine 0.53 (0.52-1.04) mg/dL Est GFR (CKD-EPI)AfAm >90 (>60 ml/min/1.73 sqM) Est GFR (CKD-EPI)NonAf >90 (>60 ml/min/1.73 sqM) Glucose 211 H (74-99) mg/dL POC Glucose (mg/dL) 194 H (75-99) mg/dL POC Glu Junior Designer ID Marla Cam Plasma Lactic Acid Bora (0.7-2.0) mmol/L Calcium 10.8 H (8.4-10.2) mg/dL Phosphorus 3.1 (2.5-4.5) mg/dL Magnesium 2.5 H (1.6-2.3) mg/dL Total Bilirubin 0.7 (0.2-1.3) mg/dL AST 71 H (14-36) U/L ALT 100 H (4-34) U/L Alkaline Phosphatase 101 (38-126) U/L Ammonia (<30) umol/L Troponin I (0.000-0.034) ng/mL C-Reactive Protein <5.0 (<10.0) mg/L Total Protein 6.3 (6.3-8.2) g/dL Albumin 3.4 L (3.5-5.0) g/dL TSH 1.150 (0.465-4.680) mIU/L Urine Color Urine Appearance (Clear) Urine pH (5.0-8.0) Ur Specific Thida (1.001-1.035) Urine Protein (Negative) Urine Glucose (UA) (Negative) Urine Ketones (Negative) Urine Blood (Negative) Urine Nitrite (Negative) Urine Bilirubin (Negative) Urine Urobilinogen (<2.0) mg/dL Ur Leukocyte Esterase (Negative) Urine RBC (0-5) /hpf Urine WBC (0-5) /hpf Ur Squamous Epith Cells (0-4) /hpf Urine Bacteria (None) /hpf Urine Mucus (None) /hpf 04/28/20 04/28/20 04/28/20 Range/Units 15:22 15:52 15:52 WBC (3.8-10.6) k/uL RBC (3.80-5.40) m/uL Hgb (11.4-16.0) gm/dL Hct (34.0-46.0) % MCV (80.0-100.0) fL MCH (25.0-35.0) pg MCHC (31.0-37.0) g/dL RDW (11.5-15.5) % Plt Count (150-450) k/uL Neutrophils % % Lymphocytes % % Monocytes % % Eosinophils % % Basophils % % Neutrophils # (1.3-7.7) k/uL Lymphocytes # (1.0-4.8) k/uL Monocytes # (0-1.0) k/uL Eosinophils # (0-0.7) k/uL Basophils # (0-0.2) k/uL Hypochromasia PT (9.0-12.0) sec INR (<1.2) APTT (22.0-30.0) sec Sample Site ABG pH (7.35-7.45) ABG pCO2 (35-45) mmHg ABG pO2 (83-108) mmHg ABG HCO3 (21-25) mmol/L ABG Total CO2 (19-24) mmol/L ABG O2 Saturation (94-97) % ABG Base Excess mmol/L Osei Test FiO2 % Sodium (137-145) mmol/L Potassium (3.5-5.1) mmol/L Chloride (98-107) mmol/L Carbon Dioxide (22-30) mmol/L Anion Gap mmol/L BUN (7-17) mg/dL Creatinine (0.52-1.04) mg/dL Est GFR (CKD-EPI)AfAm (>60 ml/min/1.73 sqM) Est GFR (CKD-EPI)NonAf (>60 ml/min/1.73 sqM) Glucose (74-99) mg/dL POC Glucose (mg/dL) (75-99) mg/dL POC Glu Junior Designer ID Plasma Lactic Acid Bora 1.5 (0.7-2.0) mmol/L Calcium (8.4-10.2) mg/dL Phosphorus (2.5-4.5) mg/dL Magnesium (1.6-2.3) mg/dL Total Bilirubin (0.2-1.3) mg/dL AST (14-36) U/L ALT (4-34) U/L Alkaline Phosphatase (38-126) U/L Ammonia 36 H (<30) umol/L Troponin I 0.093 H* (0.000-0.034) ng/mL C-Reactive Protein (<10.0) mg/L Total Protein (6.3-8.2) g/dL Albumin (3.5-5.0) g/dL TSH (0.465-4.680) mIU/L Urine Color Yellow Urine Appearance Cloudy H (Clear) Urine pH 7.0 (5.0-8.0) Ur Specific Thida 1.021 (1.001-1.035) Urine Protein Trace H (Negative) Urine Glucose (UA) Negative (Negative) Urine Ketones Negative (Negative) Urine Blood Negative (Negative) Urine Nitrite Positive H (Negative) Urine Bilirubin Negative (Negative) Urine Urobilinogen 2.0 (<2.0) mg/dL Ur Leukocyte Esterase Negative (Negative) Urine RBC 1 (0-5) /hpf Urine WBC <1 (0-5) /hpf Ur Squamous Epith Cells <1 (0-4) /hpf Urine Bacteria Many H (None) /hpf Urine Mucus Moderate H (None) /hpf 04/28/20 04/28/20 Range/Units 16:50 17:10 WBC (3.8-10.6) k/uL RBC (3.80-5.40) m/uL Hgb (11.4-16.0) gm/dL Hct (34.0-46.0) % MCV (80.0-100.0) fL MCH (25.0-35.0) pg MCHC (31.0-37.0) g/dL RDW (11.5-15.5) % Plt Count (150-450) k/uL Neutrophils % % Lymphocytes % % Monocytes % % Eosinophils % % Basophils % % Neutrophils # (1.3-7.7) k/uL Lymphocytes # (1.0-4.8) k/uL Monocytes # (0-1.0) k/uL Eosinophils # (0-0.7) k/uL Basophils # (0-0.2) k/uL Hypochromasia PT 11.5 (9.0-12.0) sec INR 1.1 (<1.2) APTT 23.0 (22.0-30.0) sec Sample Site Right Radial ABG pH 7.42 (7.35-7.45) ABG pCO2 48 H (35-45) mmHg ABG pO2 249 H (83-108) mmHg ABG HCO3 32 H (21-25) mmol/L ABG Total CO2 33 H (19-24) mmol/L ABG O2 Saturation 99.6 H (94-97) % ABG Base Excess 7.0 mmol/L Osei Test Yes FiO2 100 % Sodium (137-145) mmol/L Potassium (3.5-5.1) mmol/L Chloride (98-107) mmol/L Carbon Dioxide (22-30) mmol/L Anion Gap mmol/L BUN (7-17) mg/dL Creatinine (0.52-1.04) mg/dL Est GFR (CKD-EPI)AfAm (>60 ml/min/1.73 sqM) Est GFR (CKD-EPI)NonAf (>60 ml/min/1.73 sqM) Glucose (74-99) mg/dL POC Glucose (mg/dL) (75-99) mg/dL POC Glu Junior Designer ID Plasma Lactic Acid Bora (0.7-2.0) mmol/L Calcium (8.4-10.2) mg/dL Phosphorus (2.5-4.5) mg/dL Magnesium (1.6-2.3) mg/dL Total Bilirubin (0.2-1.3) mg/dL AST (14-36) U/L ALT (4-34) U/L Alkaline Phosphatase (38-126) U/L Ammonia (<30) umol/L Troponin I (0.000-0.034) ng/mL C-Reactive Protein (<10.0) mg/L Total Protein (6.3-8.2) g/dL Albumin (3.5-5.0) g/dL TSH (0.465-4.680) mIU/L Urine Color Urine Appearance (Clear) Urine pH (5.0-8.0) Ur Specific Thida (1.001-1.035) Urine Protein (Negative) Urine Glucose (UA) (Negative) Urine Ketones (Negative) Urine Blood (Negative) Urine Nitrite (Negative) Urine Bilirubin (Negative) Urine Urobilinogen (<2.0) mg/dL Ur Leukocyte Esterase (Negative) Urine RBC (0-5) /hpf Urine WBC (0-5) /hpf Ur Squamous Epith Cells (0-4) /hpf Urine Bacteria (None) /hpf Urine Mucus (None) /hpf Disposition Clinical Impression: Altered mental status Disposition: OTHER INSTITUTION NOT DEFINED Condition: Fair Referrals: Yvonne Dominguez MD [Primary Care Provider] - 1-2 days Time of Disposition: 18:17 - Out of Hospital Transfer - Req. Specs Out of Hospital Transfer - Requested Specifics: Other Emergency Center ([facility])
--- NOTE | 2020-04-28 15:43 | CT ---
EXAMINATION TYPE: CT brain wo con for TPA DATE OF EXAM: 04/28/2020 COMPARISON: 03/20/2020 HISTORY: Decreased LOC cince [address] DLP: 1247.4 mGycm Automated exposure control for dose reduction was used. There is cerebral cortical atrophy. Air is enlargement of the ventricles. There is hypodensity in the periventricular white matter. There is no mass effect nor midline shift. There is no sign of intracr anial hemorrhage. The calvarium is intact. IMPRESSION: Cerebral atrophy. Hydrocephalus. Chronic small vessel ischemia. No change compared to old exam.
[2020-04-28 16:04] LABS: Basophils # (A) 0.1 k/uL (0-0.2); Basophils % (A) 2 %; Eosinophils # (A) 0.1 k/uL (0-0.7); Eosinophils % (A) 2 %; HGB 17.6 gm/dL (11.4-16.0); Hypochromasia Moderate; Lymphocytes # (A) 1.4 k/uL (1.0-4.8); Lymphocytes % (A) 20 %; MCH 30.6 pg (25.0-35.0); MCHC 30.6 g/dL (31.0-37.0); MCV 100.1 fL (80.0-100.0); Mean Platelet Volume 11.1; Monocytes # (A) 0.3 k/uL (0-1.0); Monocytes % (A) 4 %; Neutrophils # (A) 4.8 k/uL (1.3-7.7); Neutrophils % (A) 71 %; Platelet Count 174 k/uL (150-450); RBC 5.74 m/uL (3.80-5.40); RDW 13.9 % (11.5-15.5); WBC 6.8 k/uL (3.8-10.6)
[2020-04-28 16:08] LABS: HCT 57.4 % (34.0-46.0)
[2020-04-28 16:09] VITALS: TEMP 99.3
[2020-04-28 16:10] LABS: ALT 100 U/L (4-34); AST 71 U/L (14-36); African American GFR (CKD) >90 (>60 ml/min/1.73 sqM); Albumin 3.4 g/dL (3.5-5.0); Alkaline Phosphatase 101 U/L (38-126); Anion Gap 6 mmol/L; Blood Urea Nitrogen 25 mg/dL (7-17); C Reactive Protein <5.0 mg/L (<10.0); Calcium 10.8 mg/dL (8.4-10.2); Carbon Dioxide 30 mmol/L (22-30); Chloride 111 mmol/L (98-107); Glucose 211 mg/dL (74-99); Magnesium 2.5 mg/dL (1.6-2.3); Non-African American GFR(CKD) >90 (>60 ml/min/1.73 sqM); Phosphorus 3.1 mg/dL (2.5-4.5); Potassium 4.3 mmol/L (3.5-5.1); Sodium 147 mmol/L (137-145); Total Bilirubin 0.7 mg/dL (0.2-1.3); Total Protein 6.3 g/dL (6.3-8.2)
[2020-04-28 16:35] LABS: Appearance,Urine Cloudy (Clear); Bacteria,Urine Many /hpf; Bilirubin,Urine Negative (Negative); Blood,Urine Negative (Negative); Color,Urine Yellow; Glucose,Urine (UA) Negative (Negative); Ketones,Urine Negative (Negative); Leukocyte Esterase,Urine Negative (Negative); Mucus,Urine Moderate /hpf; Nitrite,Urine Positive (Negative); Protein,Urine Trace (Negative); RBC,Urine 1 /hpf (0-5); Specific Gravity,Urine 1.021 (1.001-1.035); Squamous Epithelial Cell,Urine <1 /hpf (0-4); WBC,Urine <1 /hpf (0-5)
[2020-04-28 16:39] LABS: Lactic Acid, Venous 1.5 mmol/L (0.7-2.0)
[2020-04-28 17:08] LABS: INR 1.1 (<1.2); Prothrombin Time 11.5 sec (9.0-12.0)
[2020-04-28 17:13] LABS: ABG HCO3 32 mmol/L (21-25); ABG Oxygen Saturation 99.6 % (94-97); ABG PCO2 48 mmHg (35-45); ABG PH 7.42 (7.35-7.45); ABG PO2 249 mmHg (83-108); ABG TCO2 33 mmol/L (19-24); Allen Test Performed? Yes
--- NOTE | 2020-04-28 17:15 | CT ---
EXAMINATION TYPE: CT angio head neck DATE OF EXAM: 04/28/2020 COMPARISON: None HISTORY: Mental status changes. CT DLP: 531 mGycm Automated exposure control for dose reduction was used. CONTRAST: Performed with IV Contrast, patient injected with 65 mL of Isovue 370. There are 3-D post processed images. Thoracic aorta is atheromatous. There is left pleural effusion. There is some patchy infiltrates in b oth upper lobes. There is normal branching pattern of the great vessels on the aortic arch. There is bilateral arterial flow in the subclavian arteries. There is arterial flow in the common internal and external carotid arteries bilaterally. There is plaque formation at the carotid artery bifurcations. Stenosis is estimated less than 25%. There is arterial flow in both vertebral arteries. There is art erial flow in the vertebrobasilar artery system. There is no evidence of carotid or vertebral artery aneurysm or dissection. There is arterial flow in the anterior middle and posterior cerebral arteries. I see no evidence of i ntracranial aneurysm or neovascularity. There is normal contrast opacification of the venous sinuses. I see no filling defect. There is no intracranial mass effect. I see no evidence of intracranial art erial hemodynamic stenosis. IMPRESSION: Mild atherosclerotic vascular disease. No evidence of hemodynamic stenosis.
--- NOTE | 2020-04-28 18:01 | XR ---
EXAMINATION TYPE: XR chest 2V DATE OF EXAM: 04/28/2020 COMPARISON: 03/23/2020 HISTORY: Follow-up pneumonia TECHNIQUE: FINDINGS: Heart is enlarged. There is coarse interstitial infiltrate throughout the lungs. There is s ome blunting left costophrenic angle. There is fluid in the major fissures. There is probably some in filtrate left lower lobe. There is mild pulmonary vascular congestion. IMPRESSION: There is evidence for congestive heart failure with pleural fluid. Mild infiltrate left l ower lobe. Infiltrate left lower lobe appears increased compared to old exam. Heart failure unchanged .
[2020-04-28 18:24] VITALS: BP 145/109; PULSE 100; RESP 22
== END 2020-04-28 18:50 | disposition other institution (70) ==
LOC: EC 15:05
DX: R41.82 Altered mental status, unspecified (principal); I10 Essential (primary) hypertension; E11.39 Type 2 diabetes mellitus with other diabetic ophthalmic complication; H42 Glaucoma in diseases classified elsewhere; J44.9 Chronic obstructive pulmonary disease, unspecified; I48.91 Unspecified atrial fibrillation; G91.9 Hydrocephalus, unspecified; R47.01 Aphasia; R78.81 Bacteremia; E86.0 Dehydration; N39.0 Urinary tract infection, site not specified; E78.5 Hyperlipidemia, unspecified; M19.90 Unspecified osteoarthritis, unspecified site; Z79.51 Long term (current) use of inhaled steroids; Z79.01 Long term (current) use of anticoagulants; Z86.73 Personal history of transient ischemic attack (TIA), and cerebral infarction without residual deficits; Z79.4 Long term (current) use of insulin; Z79.899 Other long term (current) drug therapy; Z93.1 Gastrostomy status
CPT/HCPCS: 36415; 36600; 93005; 80053; 82140; 82805; 83605; 83735; 84100; 84443; 84484; 85025; 85610; 85730; 86140; 81001; 84145; 71046; 70496; 70450; 70498; 99285; 96360; 96361 ×2; Q9967